=== PATIENT | male | born 1940 | race Caucasian/White ===

== ENCOUNTER 2020-06-20 06:38 | Observation (INO) | payer MEDICARE, SELFPAY ==
--- NOTE | 2020-06-20 06:47 | XR_ITS ---
EXAMINATION: 1. RADIOGRAPHS CHEST 2. RADIOGRAPHS RIGHT KNEE CLINICAL INFORMATION: Syncopal episode with right knee injury COMPARISON: Chest x-ray 11/29/2017 TECHNIQUE: Frontal view of the chest and 2 views of the right knee were obtained. FINDINGS: CHEST: Cardiac silhouette is normal in size. The lungs are well aerated. There is no lobar consolidation. No pleural effusion or pneumothorax. RIGHT KNEE: No fracture or dislocation. No suprapatellar joint effusion. Mildly decreased medial joint space height. Small patellar enthesophytes. Vascular calcifications. XR/XR knee RT 2V IMPRESSION: 1. No acute pulmonary pathology. 2. Mild degenerative changes of the right knee without fracture.
[2020-06-20 06:48] VITALS: BP 143/96; BP 84/62; PULSE 54; PULSE 75; RESP 20; O2SAT 78; BMI 55.0
--- NOTE | 2020-06-20 06:48 | CT_ITS ---
EXAMINATION: NONCONTRAST HEAD CT INDICATION INFORMATION: Syncope COMPARISON: Head CT 11/29/2017 TECHNIQUE: Noncontrast CT of the head was performed from the skull base to the vertex. Soft tissue and bony algorithms were evaluated. Coronal and sagittal images were created at the technologist workstation. This CT examination was performed using dose optimization techniques as appropriate, variously including the following: *Automated exposure control *Adjustment of mA and/or kV according to patient size (this includes techniques or standardized protocols for targeted exams where dose is matched to indication/reason for exam; i.e. extremities or head) *Use of iterative reconstruction technique DLP: 705 mGy-cm FINDINGS: There is no evidence of acute intracranial hemorrhage or territorial infarction. No abnormal mass effect or midline shift is appreciated. Lynch-white differentiation is well preserved. No extra-axial fluid collections. The ventricular system and cortical sulci are prominent, consistent with age-appropriate volume loss. There are areas of low density in the periventricular and subcortical white matter, most consistent with sequelae of microvascular ischemic change. The osseous structures and soft tissues are normal. There are calcifications of the cavernous internal carotid arteries. The visualized paranasal sinuses and mastoid air cells are well aerated. CT/CT head/brain wo con IMPRESSION: Chronic microvascular ischemic changes with no CT evidence of acute intracranial abnormality.
--- NOTE | 2020-06-20 06:48 | XR_ITS ---
EXAMINATION: 1. RADIOGRAPHS CHEST 2. RADIOGRAPHS RIGHT KNEE CLINICAL INFORMATION: Syncopal episode with right knee injury COMPARISON: Chest x-ray 11/29/2017 TECHNIQUE: Frontal view of the chest and 2 views of the right knee were obtained. FINDINGS: CHEST: Cardiac silhouette is normal in size. The lungs are well aerated. There is no lobar consolidation. No pleural effusion or pneumothorax. RIGHT KNEE: No fracture or dislocation. No suprapatellar joint effusion. Mildly decreased medial joint space height. Small patellar enthesophytes. Vascular calcifications. XR/XR chest 1V IMPRESSION: 1. No acute pulmonary pathology. 2. Mild degenerative changes of the right knee without fracture.
--- NOTE | 2020-06-20 06:48 | ECG_ITS ---
Test Reason : FALL Blood Pressure : / mmHG Vent. 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
--- NOTE | 2020-06-20 06:50 | ED_ITS ---
HPI - Syncope General Chief Complaint: General Medical Stated Complaint: SEMI RESPONSIVE Time Seen by Provider: 06/20/20 06:47 Source: patient and EMS Mode of arrival: EMS Limitations: no limitations History of Present Illness HPI narrative: 80-year-old male brought in by ambulance to the emergency department after syncopal episode, patient stated that he tried to get up going to the bathroom felt weak and he put himself down on the floor unsure if he lost consciousness but he remained on the floor and call 911, on arrival of 911 patient was on the floor was hypoxic 77% and fingerstick was 108 patient was given supplemental oxygen via nasal cannula patient mentation improved and start to respond to EMS, patient initially had a low blood pressure which responded well to 300 cc of normal saline given by EMS, patient emergency department is awake and alert and oriented able to regard examiner and answer questions appropriately. Related Data Allergies Allergy/AdvReac Type Severity Reaction Status Date / Time amoxicillin [AMOXICILLIN] Allergy Unknown HIVES Unverified 04/22/20 15:13 Review of Systems Review of Systems: All other systems are reviewed and are negative Constitutional: Reports as per HPI and Reports no additional constitutional complaints Eyes: Reports as per HPI and Reports no additional eye complaints Reports system reviewed and no additional complaints, except as documented Cardiovascular: Reports as per HPI and Reports no additional cardiovascular complaints Respiratory: Reports as per HPI and Reports no additional respiratory complaints Gastrointestinal: Reports as per HPI and Reports no additional gastrointestinal complaints Genitourinary: Reports no additional female genitourinary complaints Musculoskeletal: Reports no additional musculoskeletal complaints Skin/Breast: Reports system reviewed and no additional complaints, except as docu Psychiatric: Reports no additional psychiatric complaints Endocrine: Reports no additional endocrine complaints Hematologic/Lymphatic: Reports no additional hematologic/lymphatic complaints Allergic/Immunologic: Reports no additional allergic/immunologic complaints Reports system reviewed and no additional complaints, except as documented and Reports Abnormal speech present [facility] Social History Social History Smoked in Last 30 Days: No Use of substances other than those prescribed or required for medical reasons: No Advance Directives: No Advance Directives Information Provided: No Physical Exam Vital Signs: Vital Signs: Last Vital Signs Pulse 75 06/20/20 06:48 Resp 20 06/20/20 06:48 BP 143/96 H 06/20/20 06:48 Body Mass Index 55.0 Vital signs have been reviewed as normal and appeared to be correct. Blood pres sure normal. Heart rate normal. Respiration rate normal. Temperature normal. Oxygen saturation normal. Appearance: Alert. Oriented X3. No acute distress. Head: Normal external exam. Normocephalic. Atraumatic. No García signs noted. No raccoon eyes noted Eyes: PERRLA. EOMI. Conjunctiva and sclera normal. Eyelids normal. ENT: EAC normal. TM's Normal. Pharynx normal. Uvula midline. Moist mucous membranes. No trismus noted. No drooling noted. No muffled voice noted. Neck: Normal inspection. Neck supple. FROM. No adenopathy. Thyroid Normal. No meningeal signs. No neck mass noted. CVS: Normal heart rate and rhythm. Heart sound normal. No murmurs noted. Pulses normal throughout. Respiratory: No respiratory distress. Painless inspiration. Breath sounds don l. No wheezes/rales/rhonchi noted. Chest nontender. No accessory muscle usage noted or decreased air movement noted. Abdomen: Soft and nontender. Bowel sounds normal in all 4 quadrants. No distention noted. No organomegaly noted. No visible injury noted. Back: No CVA tenderness. Full range of motion noted. Skin: Skin warm and dry. Normal skin color. Normal skin turgor. No rashes/lesions/lacerations noted. Extremities: No lower extremity edema. Extremities exhibit normal range of motion. Extremities nontender. Superficial abrasion to right knee with full range of motion, no deformity. Neurovascular exam is intact distal to the right knee Neuro: Oriented X 3. No motor deficit. No sensory deficit. Reflexes normal. Course Course Course Narrative: This is an 80 years old male came in by ambulance after was found unresponsive by his , patient initially was hypoxic but responded to EMS supplemental oxygen via nasal cannula, patient also was hypotensive initially responded well to 300 cc given by EMS, initial fingerstick was 108. Patient at this point decline chest pain or difficulty breathing, neuro exam is intact. Check blood workup, chest x-ray, x-ray of her right knee, cardiac monitoring, monitoring blood pressure/O2 sat. MDM - Syncope MDM Narrative Medical decision making narrative: 80 years old male presented after having syncopal episode this morning when he woke up trying to go to the bathroom. 1. Patient has positive orthostatic vital signs in the emergency department, and he also hyponatremic so possibly hyponatremia hypovolemia that is causing jony ent's symptoms. 2. Patient also will be admitted for syncopal cardiac/neurologic workup. 3. Gentle hydration. Number for admit to inpatient. Lab Data Lab results narrative: Hyponatremia Result diagrams: 06/20/20 07:03 06/20/20 07:03 Labs: Lab Results 06/20/20 06/20/20 06/20/20 Range/Units 07:03 07:03 07:03 WBC 7.6 (4.8-10.8) X10*3/uL RBC 4.31 L (4.60-5.80) X10*6/uL Hgb 13.6 L (14.0-18.0) g/dl Hct 39.5 L (42-52) % MCV 91.6 (80-98) fL MCH 31.6 (27.0-33.0) pg MCHC 34.4 (31.0-36.0) g/dl RDW 12.4 (11.0-16.0) % Plt Count 249 (160-400) X10*3/uL MPV 9.3 L (9.4-12.4) fL Immature Gran % (Auto) 0.4 (0.0-0.4) % Neut % (Auto) 66.3 (45-73) % Lymph % (Auto) 14.2 L (20-40) % [place] % (Auto) 10.8 (2-11) % Eos % (Auto) 7.4 H (0-4) % Baso % (Auto) 0.9 (0-2) % Lymph # (Auto) 1.1 L (1.2-4.9) X10*3/uL [place] # (Auto) 0.8 (0.1-1.2) X10*3/uL Eos # (Auto) 0.6 H (0.0-0.4) X10*3/uL Baso # (Auto) 0.1 (0.0-0.2) X10*3/uL Abs Immat Gran (auto) 0.03 (0.00-0.03) X10*3/uL Absolute Neuts (auto) 5.0 (2.0-8.3) X10*3/uL Absolute Nucleated RBC 0.000 (0.0-0.012) X10*3/uL Nucleated RBC % (auto) 0.0 (0.0-0.2) /100WBC Sodium 129 L (135-145) mmol/L Potassium 4.8 (3.3-5.1) mmol/l Chloride 94 L (96-108) mmol/L Carbon Dioxide 28 (22-29) mmol/L Anion Gap 12 (12-20) BUN 10 (9-16) mg/dL Creatinine 1.29 (0.5-1.4) mg/dL Estim Creat Clear Calc 70.8 Estimated GFR 53 Random Glucose 152 H (60-115) mg/dL Calcium 8.8 (8.4-10.2) mg/dL Total Bilirubin 0.7 (0.0-1.0) mg/dL Direct Bilirubin 0.3 (0.0-0.5) mg/dL AST 20 (5-37) U/L ALT 17 (0-40) U/L Alkaline Phosphatase 85 (39-117) U/L Troponin I High Sens 28.6 (<3.5-35.0) ng/L B-Natriuretic Peptide 76 (<100) pg/mL Total Protein 6.9 (6.5-8.0) g/dL Albumin 4.2 (3.5-5.0) g/dL Lipase 260 H (8-78) U/L COVID-19 (HUGO) (Negative) COVID-19 Clin Com 06/20/20 Range/Units 07:34 WBC (4.8-10.8) X10*3/uL RBC (4.60-5.80) X10*6/uL Hgb (14.0-18.0) g/dl Hct (42-52) % MCV (80-98) fL MCH (27.0-33.0) pg MCHC (31.0-36.0) g/dl RDW (11.0-16.0) % Plt Count (160-400) X10*3/uL MPV (9.4-12.4) fL Immature Gran % (Auto) (0.0-0.4) % Neut % (Auto) (45-73) % Lymph % (Auto) (20-40) % [place] % (Auto) (2-11) % Eos % (Auto) (0-4) % Baso % (Auto) (0-2) % Lymph # (Auto) (1.2-4.9) X10*3/uL [place] # (Auto) (0.1-1.2) X10*3/uL Eos # (Auto) (0.0-0.4) X10*3/uL Baso # (Auto) (0.0-0.2) X10*3/uL Abs Immat Gran (auto) (0.00-0.03) X10*3/uL Absolute Neuts (auto) (2.0-8.3) X10*3/uL Absolute Nucleated RBC (0.0-0.012) X10*3/uL Nucleated RBC % (auto) (0.0-0.2) /100WBC Sodium (135-145) mmol/L Potassium (3.3-5.1) mmol/l Chloride (96-108) mmol/L Carbon Dioxide (22-29) mmol/L Anion Gap (12-20) BUN (9-16) mg/dL Creatinine (0.5-1.4) mg/dL Estim Creat Clear Calc Estimated GFR Random Glucose (60-115) mg/dL Calcium (8.4-10.2) mg/dL Total Bilirubin (0.0-1.0) mg/dL Direct Bilirubin (0.0-0.5) mg/dL AST (5-37) U/L ALT (0-40) U/L Alkaline Phosphatase (39-117) U/L Troponin I High Sens (<3.5-35.0) ng/L B-Natriuretic Peptide (<100) pg/mL Total Protein (6.5-8.0) g/dL Albumin (3.5-5.0) g/dL Lipase (8-78) U/L COVID-19 (HUGO) Negative (Negative) COVID-19 Clin Com See Note Imaging Data CT scan - head: Radiologist's impression: Chronic microvascular ischemic changes with no CT evidence of acute intracranial abnormality Chest x-ray: Radiologist's impression: 1. No acute pulmonary pathology. 2. Mild degenerative changes of the right knee without fracture. Right knee x-ray: Radiologist's impression: 1. No acute pulmonary pathology. 2. Mild degenerative changes of the right knee without fracture. ECG Data Interpretation: Normal sinus rhythm at 72 beats per minute with occasional PVCs, normal axis deviation, otherwise unremarkable intervals, no acute ST-T changes. Discharge Plan Discharge Clinical Impression: Syncope, Vaso-vagal reaction, Acute hyponatremia Patient Disposition: Admitted As Inpatient
[2020-06-20 07:10] LABS: MANUAL DIFF FLAG NO
[2020-06-20 07:12] LABS: Basophils Absolute Auto 0.1 X10*3/uL (0.0-0.2); Basophils Percent Auto 0.9 % (0-2); Eosinophils Absolute Auto 0.6 X10*3/uL (0.0-0.4); Eosinophils Percent Auto 7.4 % (0-4); Hematocrit 39.5 % (42-52); Hemoglobin 13.6 g/dl (14.0-18.0); Imm Gran Abs Auto 0.03 X10*3/uL (0.00-0.03); Imm Gran Pct Auto 0.4 % (0.0-0.4); Lymphocytes Absolute Auto 1.1 X10*3/uL (1.2-4.9); Lymphocytes Percent Auto 14.2 % (20-40); Mean Corpuscular HGB Conc 34.4 g/dl (31.0-36.0); Mean Corpuscular Hemoglobin 31.6 pg (27.0-33.0); Mean Corpuscular Volume 91.6 fL (80-98); Mean Platelet Volume 9.3 fL (9.4-12.4); Monocytes Absolute Auto 0.8 X10*3/uL (0.1-1.2); Monocytes Percent Auto 10.8 % (2-11); Neutrophils Percent Auto 66.3 % (45-73); Platelet Count 249 X10*3/uL (160-400); Red Blood Count 4.31 X10*6/uL (4.60-5.80); Red Cell Distribution Width 12.4 % (11.0-16.0); White Blood Count 7.6 X10*3/uL (4.8-10.8)
[2020-06-20 07:39] LABS: B Type Natriuretic Peptide 76 pg/mL (<100); Troponin-I High Sensitivity 28.6 ng/L (<3.5-35.0)
[2020-06-20 07:47] LABS: Alanine Aminotransferase 17 U/L (0-40); Albumin Level 4.2 g/dL (3.5-5.0); Alkaline Phosphatase 85 U/L (39-117); Anion Gap 12 (12-20); Aspartate Amino Transferase 20 U/L (5-37); Bilirubin Direct 0.3 mg/dL (0.0-0.5); Bilirubin Total 0.7 mg/dL (0.0-1.0); Blood Urea Nitrogen 10 mg/dL (9-16); Calcium 8.8 mg/dL (8.4-10.2); Carbon Dioxide 28 mmol/L (22-29); Chloride 94 mmol/L (96-108); Creatinine Clr Calc Pharmacy 70.8; Estimated Glomerular Filt Rate 53; Glucose Random 152 mg/dL (60-115); Potassium 4.8 mmol/l (3.3-5.1); Sodium 129 mmol/L (135-145); Total Protein 6.9 g/dL (6.5-8.0)
[2020-06-20 07:59] LABS: Lipase 260 U/L (8-78)
[2020-06-20 08:06] LABS: COVID-19 Test Negative (Negative); IDNOW Serial# 9DD0AD1C
[2020-06-20] MEDS: 0.9 % Sodium Chloride 500 ML 999 ML IVCONT (08:09)
[2020-06-20 10:02] VITALS: BP 119/54; BP 137/52; BP 139/58; PULSE 71; PULSE 81; PULSE 88
[2020-06-20 10:05] VITALS: BMI 24.5
[2020-06-20 10:26] LABS: Magnesium 1.8 mg/dL (1.6-2.6)
--- NOTE | 2020-06-20 11:02 | PM.IMHP ---
History of Present Illness Date of Service: 06/20/20 Chief Complaint: syncope this is an 80-year-old male who was brought to the emergency department after a possible syncopal episode. He states that he got up early this morning to use the bathroom. Since he broke his hip he does not walk to the bathroom in the middle of the night, he uses the urinal next to the bed. He got up and his heard a thump and found him on the ground and called 911. Reportedly per EMS he was hypoxic and hypotensive when they arrived at his home. He was also somewhat groggy. On arrival in the emergency department his blood pressure was 143/96 and the patient was awake and alert and at his baseline. He denies any specific complaints at this time. Lab work was significant for sodium of 129, troponin of 28.6. Orthostatic blood pressures were checked and were borderline positive. he does not drink water at home and has been trying to lose weight in the decreasing his p.o. intake. He received gentle IV fluid. He was noted to have frequent bigeminy on monitor. Of note patient had a similar episode in 2018. Review of Systems Review of Systems: Yes all other systems are reviewed and are negative Constitutional: Constitutional: Denies chills and Denies fever(s) Cardiovascular: Cardiovascular: Denies chest pain Respiratory: Respiratory: Reports cough Gastrointestinal: Gastrointestinal: Denies abdominal pain [facility] Medical History (Updated 06/20/20 @ 11:51 by SANDY Patterson) BPH (benign prostatic hyperplasia) Hyperlipidemia Hypertension Near syncope Functional capacity: uses cane/walker Family History (Updated 06/20/20 @ 11:51 by SANDY Patterson) Other CAD (coronary artery disease) Surgical History (Updated 06/20/20 @ 11:51 by SANDY Patterson) H/O foot surgery Previous back surgery Status post hip surgery Social History (Updated 06/20/20 @ 11:52 by SANDY Patterson) Household Members: Spouse Alcohol intake: former Smoking Status: Former smoker Tobacco Type: Cigarette Smoked in Last 30 Days: No Use of substances other than those prescribed or required for medical reasons: No Advance Directives: No Advance Directives Information Provided: No Meds Allergies Allergy/AdvReac Type Severity Reaction Status Date / Time amoxicillin [AMOXICILLIN] Allergy Unknown HIVES Unverified 04/22/20 15:13 Home Medications Medication Instructions Recorded Confirmed Type cholecalciferol (vitamin D3) 25 mcg PO DAILY 06/20/20 06/20/20 History [Vitamin D3] hydrochlorothiazide 25 mg PO DAILY 06/20/20 06/20/20 History pravastatin 25 mg PO DAILY 06/20/20 06/20/20 History tamsulosin 0.4 mg PO DAILY 06/20/20 06/20/20 History Physical Exam Vital Signs and Narrative: Vital Signs: Last Vital Signs Pulse 88 06/20/20 10:02 Resp 20 06/20/20 06:48 BP 119/54 L 06/20/20 10:02 Body Mass Index 24.5 Const: Nutritional Appearance: well nourished Orientation/consciousness: patient oriented x3 HENMT: Head: Yes normocephalic and Yes atraumatic Eyes: Sclerae: sclerae normal Chest: Chest palpation & inspection: normal inspection of the chest Resp: Effort & Inspection: normal respiratory effort and no respiratory distress Auscultation: clear to auscultation bilaterally Cardio: Rate: regular rate Rhythm: regular rhythm GI: Palpation (GI): Soft to palpation and nontender Skin: General skin exam: no rashes or lesions noted Neuro: General: patient oriented x3 Cranial nerves: Yes CN's II-XII intact bilaterally and Yes Bilaterally intact EOM present Extrem: General: Yes normal to inspection Results Labs CBC and Chem 7: 06/20/20 07:03 06/20/20 07:03 Labs: Laboratory Results - last 24 hr 06/20/20 06/20/20 06/20/20 07:03 07:03 07:03 MCV 91.6 MCH 31.6 MCHC 34.4 RDW 12.4 Plt Count 249 MPV 9.3 L Immature Gran % (Auto) 0.4 Neut % (Auto) 66.3 Lymph % (Auto) 14.2 L [place] % (Auto) 10.8 Eos % (Auto) 7.4 H Baso % (Auto) 0.9 Lymph # (Auto) 1.1 L [place] # (Auto) 0.8 Eos # (Auto) 0.6 H Baso # (Auto) 0.1 Abs Immat Gran (auto) 0.03 Absolute Neuts (auto) 5.0 Absolute Nucleated RBC 0.000 Nucleated RBC % (auto) 0.0 Anion Gap 12 Estim Creat Clear Calc 70.8 Estimated GFR 53 Random Glucose 152 H Calcium 8.8 Magnesium 1.8 Total Bilirubin 0.7 Direct Bilirubin 0.3 AST 20 ALT 17 Alkaline Phosphatase 85 Troponin I High Sens 28.6 B-Natriuretic Peptide 76 Total Protein 6.9 Albumin 4.2 Lipase 260 H COVID-19 (HUGO) COVID-19 Clin Com 06/20/20 07:34 MCV MCH MCHC RDW Plt Count MPV Immature Gran % (Auto) Neut % (Auto) Lymph % (Auto) [place] % (Auto) Eos % (Auto) Baso % (Auto) Lymph # (Auto) [place] # (Auto) Eos # (Auto) Baso # (Auto) Abs Immat Gran (auto) Absolute Neuts (auto) Absolute Nucleated RBC Nucleated RBC % (auto) Anion Gap Estim Creat Clear Calc Estimated GFR Random Glucose Calcium Magnesium Total Bilirubin Direct Bilirubin AST ALT Alkaline Phosphatase Troponin I High Sens B-Natriuretic Peptide Total Protein Albumin Lipase COVID-19 (HUGO) Negative COVID-19 Clin Com See Note Imaging Radiologist's Impressions: Impressions Knee X-Ray 06/20/20 06:47 IMPRESSION: 1. No acute pulmonary pathology. 2. Mild degenerative changes of the right knee without fracture. Chest X-Ray 06/20/20 06:48 IMPRESSION: 1. No acute pulmonary pathology. 2. Mild degenerative changes of the right knee without fracture. Head CT 06/20/20 06:48 IMPRESSION: Chronic microvascular ischemic changes with no CT evidence of acute intracranial abnormality. Assessment and Plan (1) Syncope: Qualifiers: Encounter type: initial encounter Status: Acute (2) Acute hyponatremia: Status: Acute this is an 80-year-old male with history of hypertension, dyslipidemia, BPH, syncope in 2018 who presents after syncopal episode syncope possibly related to orthostasis. orthostatic blood pressures borderline trops flat. frequent bigeminy on monitor - Gentle IV fluid - telemetry monitoring - cardiology consult mild hyponatremia likely related to volume depletion - gentle IV fluid - repeat BMP in a.m. - hold HCTZ hypertension BP controlled - hold HCT HLD - continue statin BPH - continue Flomax DVT prophylaxis- heparin code status- full code this case was discussed with Dr. Celestin
[2020-06-20 11:37] VITALS: RESP 16
--- NOTE | 2020-06-20 11:37 | PM.EVENT ---
Event Note Date of Service: 06/20/20 Event Note: Patient seen and examined independently and was present during [place] portion of E/M service. Agree with midlevel's history, physical, assessment, and plan. 80M presented with syncope syncope possible micturaiton/cough syncope, concern due to bigemny, monitor on tele, cardio eval
[2020-06-20 11:46] LABS: Troponin-I High Sensitivity 27.7 ng/L (<3.5-35.0)
--- NOTE | 2020-06-20 14:49 | PC.NURSE ---
REPORT GIVEN TO PAIGE SAUL
[2020-06-20 15:18] VITALS: BMI 24.5
[2020-06-20 15:41] VITALS: BP 164/72; PULSE 80; RESP 18; TEMP 36.3; O2SAT 98
[2020-06-20] MEDS: 0.9 % Sodium Chloride Flush 3 ML SYRINGE IVFLUSH (16:27)
[2020-06-20] MEDS: 0.9 % Sodium Chloride 1,000 ML 70 ML IVCONT (16:27)
[2020-06-20 17:38] LABS: Glucose Urine UA NEG (NEG); Leukocyte Esterase Urine NEG (NEG); Nitrite Urine NEG (NEG); PH 6.5 (5.0-8.0); Urine Blood NEG (NEG); Urine Ketones NEG (NEG); Urine Protein NEG (NEG-TRACE)
[2020-06-20 17:41] LABS: Appearance Urine CLEAR; Color Urine STRAW
[2020-06-20] MEDS: Heparin Sodium,Porcine 5,000 UNIT/ML VIAL 5000 UNIT SUBCUT (18:19)
[2020-06-20 19:16] VITALS: BP 154/66; PULSE 84; RESP 18; TEMP 36.3; O2SAT 98
[2020-06-21] VITALS: BP 180/88; PULSE 85; RESP 16; TEMP 36.4; O2SAT 100
[2020-06-21] MEDS: Acetaminophen 325 MG TABLET 650 MG PO (01:34)
[2020-06-21 04:00] VITALS: BP 186/79; PULSE 74; RESP 16; TEMP 36.3; O2SAT 100
[2020-06-21] MEDS: Heparin Sodium,Porcine 5,000 UNIT/ML VIAL 5000 UNIT SUBCUT (05:32)
[2020-06-21 06:53] LABS: Hematocrit 38.4 % (42-52); Hemoglobin 13.5 g/dl (14.0-18.0); Mean Corpuscular HGB Conc 35.2 g/dl (31.0-36.0); Mean Corpuscular Hemoglobin 32.1 pg (27.0-33.0); Mean Corpuscular Volume 91.4 fL (80-98); Platelet Count 254 X10*3/uL (160-400); Red Cell Distribution Width 12.6 % (11.0-16.0); White Blood Count 8.5 X10*3/uL (4.8-10.8)
[2020-06-21 07:36] LABS: Anion Gap 12 (12-20); Blood Urea Nitrogen 11 mg/dL (9-16); Calcium 8.5 mg/dL (8.4-10.2); Carbon Dioxide 26 mmol/L (22-29); Chloride 98 mmol/L (96-108); Estimated Glomerular Filt Rate > 60; Glucose Random 83 mg/dL (60-115); Potassium 3.8 mmol/l (3.3-5.1); Sodium 132 mmol/L (135-145)
[2020-06-21 08:00] VITALS: BP 154/73; PULSE 83; RESP 16; TEMP 36.3; O2SAT 98
[2020-06-21] MEDS: Cholecalciferol (Vitamin D3) 25 MCG TABLET PO (08:23)
[2020-06-21] MEDS: 0.9 % Sodium Chloride Flush 3 ML SYRINGE IVFLUSH (08:23)
--- NOTE | 2020-06-21 09:47 | MHC.CM.PN ---
met with pt who lives with his pt reports managing well without servceis dc plan home no servceis his will provide transportaion home
--- NOTE | 2020-06-21 10:24 | PM.DS ---
DS: Providers Provider Date of admission: 06/20/20 10:49 Primary care physician: Ronny Rashid MD Consults: 06/20/20 14:15 Consult to Cardiology Routine Consulting Provider: Lorenzo Lancaster Reason for consultation: syncope, john Has provider been notified: No DS: Diagnosis Discharge Diagnosis (1) Syncope: Status: Acute (2) Acute hyponatremia: Status: Acute DS: Medications Discharge Medications Home Medications: Home Medications Medication Instructions Recorded Confirmed cholecalciferol (vitamin D3) 25 mcg PO DAILY 06/20/20 06/20/20 [Vitamin D3] pravastatin 25 mg PO DAILY 06/20/20 06/20/20 tamsulosin 0.4 mg PO DAILY 06/20/20 06/20/20 Previous Rx's Medication Instructions Recorded amlodipine 5 mg PO DAILY #30 tab 06/21/20 DS: Summary Hospital Course Hospital Course: Patient was observed for syncope. He was seen by Cardiology felt that this was unlikely to be cardiac arrhythmia. This was possibly vasovagal versus orthostatic. Patient was noted to be hyponatremic. He received some IV fluids and sodium resolved. His hydrochlorothiazide has been exchange with amlodipine to avoid further hyponatremia. Time Spent with Patient Time attestation: Total time spent providing and/or coordinating discharge services: Physical Exam Vital Signs: Vital Signs: Last Vital Signs Temp 97.3 F 06/21/20 08:00 Pulse 83 06/21/20 08:00 Resp 16 06/21/20 08:00 BP 154/73 H 06/21/20 08:00 Pulse Ox 98 06/21/20 08:00 Body Mass Index 24.5 General: AO X 3, no acute distress Resp: CTA bilateral CVS: S1,S2,RRR GI: soft, non tender, non distended Neuro: motor grossly intact Psych: appropriate affect DS: Data Data Completed and Pending Labs on day of discharge: 06/20/20 06:47 XR knee RT 2V Stat 06/20/20 06:48 ECG 12 lead EKG Stat EKG Documentation DIRECTED CT head/brain wo con Stat XR chest 1V Stat 06/20/20 07:00 0.9 % Sodium Chloride [Ns] 500 ml IVCONT 999 mls/hr 06/20/20 07:03 B Type Natriuretic Peptide Stat Basic Metabolic Panel Stat Complete Blood Count Auto Diff Stat Lipase Stat Liver Panel Stat Magnesium Stat Troponin-I High Sensitivity Stat 06/20/20 07:34 COVID-19 ID NOW (Lopez) Stat 06/20/20 10:02 Add Laboratory Test Stat 06/20/20 10:37 Transfer Order Routine 06/20/20 11:17 Troponin-I High Sensitivity Stat 06/20/20 14:15 0.9 % Sodium Chloride [Ns] 1,000 ml IVCONT 70 mls/hr 06/20/20 17:15 UA CC w/rflx Micro + Cult Stat 06/21/20 05:33 Basic Metabolic Panel DAILY@0600 Complete Blood Count no Diff DAILY@0600 Laboratory Last Values WBC 8.5 X10*3/uL (4.8-10.8) 06/21/20 05:33 RBC 4.20 X10*6/uL (4.60-5.80) L 06/21/20 05:33 Hgb 13.5 g/dl (14.0-18.0) L 06/21/20 05:33 Hct 38.4 % (42-52) L 06/21/20 05:33 MCV 91.4 fL (80-98) 06/21/20 05:33 MCH 32.1 pg (27.0-33.0) 06/21/20 05:33 MCHC 35.2 g/dl (31.0-36.0) 06/21/20 05:33 RDW 12.6 % (11.0-16.0) 06/21/20 05:33 Plt Count 254 X10*3/uL (160-400) 06/21/20 05:33 MPV 10.0 fL (9.4-12.4) 06/21/20 05:33 Immature Gran % (Auto) 0.4 % (0.0-0.4) 06/20/20 07:03 Neut % (Auto) 66.3 % (45-73) 06/20/20 07:03 Lymph % (Auto) 14.2 % (20-40) L 06/20/20 07:03 [place] % (Auto) 10.8 % (2-11) 06/20/20 07:03 Eos % (Auto) 7.4 % (0-4) H 06/20/20 07:03 Baso % (Auto) 0.9 % (0-2) 06/20/20 07:03 Lymph # (Auto) 1.1 X10*3/uL (1.2-4.9) L 06/20/20 07:03 [place] # (Auto) 0.8 X10*3/uL (0.1-1.2) 06/20/20 07:03 Eos # (Auto) 0.6 X10*3/uL (0.0-0.4) H 06/20/20 07:03 Baso # (Auto) 0.1 X10*3/uL (0.0-0.2) 06/20/20 07:03 Abs Immat Gran (auto) 0.03 X10*3/uL (0.00-0.03) 06/20/20 07:03 Absolute Neuts (auto) 5.0 X10*3/uL (2.0-8.3) 06/20/20 07:03 Absolute Nucleated RBC 0.000 X10*3/uL (0.0-0.012) 06/21/20 05:33 Nucleated RBC % (auto) 0.0 /100WBC (0.0-0.2) 06/21/20 05:33 Sodium 132 mmol/L (135-145) L 06/21/20 05:33 Potassium 3.8 mmol/l (3.3-5.1) D 06/21/20 05:33 Chloride 98 mmol/L (96-108) 06/21/20 05:33 Carbon Dioxide 26 mmol/L (22-29) 06/21/20 05:33 Anion Gap 12 (12-20) 06/21/20 05:33 BUN 11 mg/dL (9-16) 06/21/20 05:33 Creatinine 1.05 mg/dL (0.5-1.4) 06/21/20 05:33 Estim Creat Clear Calc 56.0 06/21/20 05:33 Estimated GFR > 60 06/21/20 05:33 Random Glucose 83 mg/dL (60-115) D 06/21/20 05:33 Calcium 8.5 mg/dL (8.4-10.2) 06/21/20 05:33 Magnesium 1.8 mg/dL (1.6-2.6) 06/20/20 07:03 Total Bilirubin 0.7 mg/dL (0.0-1.0) 06/20/20 07:03 Direct Bilirubin 0.3 mg/dL (0.0-0.5) 06/20/20 07:03 AST 20 U/L (5-37) 06/20/20 07:03 ALT 17 U/L (0-40) 06/20/20 07:03 Alkaline Phosphatase 85 U/L (39-117) 06/20/20 07:03 Troponin I High Sens 27.7 ng/L (<3.5-35.0) 06/20/20 11:17 B-Natriuretic Peptide 76 pg/mL (<100) 06/20/20 07:03 Total Protein 6.9 g/dL (6.5-8.0) 06/20/20 07:03 Albumin 4.2 g/dL (3.5-5.0) 06/20/20 07:03 Lipase 260 U/L (8-78) H 06/20/20 07:03 Urine Color STRAW 06/20/20 16:20 Urine Appearance CLEAR 06/20/20 16:20 Urine pH 6.5 (5.0-8.0) 06/20/20 16:20 Ur Specific [place] 1.010 (1.005-1.025) 06/20/20 16:20 Urine Protein NEG MG/DL (NEG-TRACE) 06/20/20 16:20 Urine Glucose (UA) NEG MG/DL (NEG) 06/20/20 16:20 Urine Ketones NEG MG/DL (NEG) 06/20/20 16:20 Urine Blood NEG (NEG) 06/20/20 16:20 Urine Nitrite NEG (NEG) 06/20/20 16:20 Ur Leukocyte Esterase NEG (NEG) 06/20/20 16:20 COVID-19 (HUGO) Negative (Negative) 06/20/20 07:34 COVID-19 Clin Com See Note 06/20/20 07:34 Discharge Plan Discharge Patient Disposition: Home, Self-Care Referrals: Ronny Rashid MD [Primary Care Provider] - Discharge Medications: New amlodipine 5 mg tablet 5 mg PO DAILY Qty: 30 RF: 0 Continued tamsulosin 0.4 mg Capsule 0.4 mg PO DAILY RF: 0 pravastatin 20 mg Tablet 25 mg PO DAILY RF: 0 cholecalciferol (vitamin D3) [Vitamin D3] 25 mcg (1,000 unit) Capsule 25 mcg PO DAILY RF: 0 Discontinued hydrochlorothiazide 25 mg Tablet 25 mg PO DAILY RF: 0 Discharge Orders: Discharge Order (Routine); Ordered 06/21/20 Ordered By: Steve Celestin Activity on Discharge: As tolerated Visit Report Forms: Patient Portal Discharge page Care Plan Goals: recovery Health Concerns: syncope Plan of Treatment: change hctz for amlodiipne because of low sodium
--- NOTE | 2020-06-21 10:24 | MHC.CM.PN ---
pt dcd home today with no services pts family to transport him home
--- NOTE | 2020-06-21 10:30 | P.CONCA_ITS ---
History of Present Illness History of Present Illness Date of Consult: June 21, 2020 Chief complaint: syncope Narrative: This is a cardiology consultation regarding suspected syncopal episode. Patient himself does not have any specific cardiac history at all. He denies any coronary disease or myocardial infarction or cardiomyopathy or in fact any other cardiac concerns in the past. There is no prior history of any orthostatic hypotension or recurrent syncopal episodes. He apparently has a torn pectoral muscle on the left side from many years ago and that sometimes lead to nonexertional pains but otherwise no anginal-type symptoms at any point. He got up in the morning to use the bathroom and he tries to use a urinal next to the bed. His apparently heard a thump and found him on the ground and called 911. suspected to have hypoxia / hypotension when EMS arrived and some grogginess. In the ER however, blood pressure was 143/96 mm Hg and the patient is awake and alert and back to his baseline. He has no cardiac symptoms at this time including angina, shortness of breath, feeling dizzy or in fact anything else at all. Overall, he states that he feels okay. Review of Systems Review of Systems: Cardiac negative for angina, shortness of breath, palpitations, dizzy spells or syncopal episodes. Remainder of the 10 system review negative. [facility] Past Medical History Medical History BPH (benign prostatic hyperplasia) Hyperlipidemia Hypertension Near syncope Functional capacity: uses cane/walker Family History Family History Other CAD (coronary artery disease) Surgical History Surgical History H/O foot surgery Previous back surgery Status post hip surgery Social History Social History Household Members: Spouse Housing: House Do you presently have visiting nurse or other home services: No Alcohol intake: former Smoking Status: Former smoker Tobacco Type: Cigarette Packs Per Day: 1.5 Cigarettes Per Day: 30.0 Years Smoked: 60 Smoked in Last 30 Days: No Smoking Quit Date: 10 YEARS AGO Use of substances other than those prescribed or required for medical reasons: No Have you been hit, kicked, punched, or otherwise hurt by someone within the past year? If so, by whom?: No Do you feel safe in your current relationship?: No Is there a partner from a previous relationship who is making you feel unsafe now?: No Are you made to feel afraid or neglected: No Advance Directives: No Advance Directives Information Provided: No Do you have thoughts of harming others: None Do you have a plan to hurt others: No Plan Recently lost weight without trying: No service: No Meds Allergies Allergy/AdvReac Type Severity Reaction Status Date / Time amoxicillin [AMOXICILLIN] Allergy Unknown HIVES Verified 06/20/20 16:22 bee pollen [bee stings] Allergy Anaphylaxis Verified 06/20/20 15:38 Home Medications Medication Instructions Recorded Confirmed Type cholecalciferol (vitamin D3) 25 mcg PO DAILY 06/20/20 06/20/20 History [Vitamin D3] pravastatin 25 mg PO DAILY 06/20/20 06/20/20 History tamsulosin 0.4 mg PO DAILY 06/20/20 06/20/20 History Physical Exam Vital Signs: Vital Signs: Last Vital Signs Temp 97.3 F 06/21/20 08:00 Pulse 83 06/21/20 08:00 Resp 16 06/21/20 08:00 BP 154/73 H 06/21/20 08:00 Pulse Ox 98 06/21/20 08:00 Body Mass Index 24.5 Comfortable, no distress No pallor, icterus or cyanosis HEENT -unremarkable JVD- normal Cardiac- normal heart sounds, no murmurs, gallops or rubs, normal PMI Respiratory-normal breath sounds bilaterally, no crackles, no wheeze Abdomen- soft, nontender Neuro- alert and oriented Lower extremities- no significant edema, warm well perfused Results Labs and Meds Result diagrams: 06/21/20 05:33 06/21/20 05:33 Lab results: Laboratory Results - last 24 hr 06/20/20 06/20/20 06/21/20 11:17 16:20 05:33 WBC 8.5 RBC 4.20 L Hgb 13.5 L Hct 38.4 L MCV 91.4 MCH 32.1 MCHC 35.2 RDW 12.6 Plt Count 254 MPV 10.0 Absolute Nucleated RBC 0.000 Nucleated RBC % (auto) 0.0 Sodium Potassium Chloride Carbon Dioxide Anion Gap BUN Creatinine Estim Creat Clear Calc Estimated GFR Random Glucose Calcium Troponin I High Sens 27.7 Urine Color STRAW Urine Appearance CLEAR Urine pH 6.5 Ur Specific [place] 1.010 Urine Protein NEG Urine Glucose (UA) NEG Urine Ketones NEG Urine Blood NEG Urine Nitrite NEG Ur Leukocyte Esterase NEG 06/21/20 05:33 WBC RBC Hgb Hct MCV MCH MCHC RDW Plt Count MPV Absolute Nucleated RBC Nucleated RBC % (auto) Sodium 132 L Potassium 3.8 D Chloride 98 Carbon Dioxide 26 Anion Gap 12 BUN 11 Creatinine 1.05 Estim Creat Clear Calc 56.0 Estimated GFR > 60 Random Glucose 83 D Calcium 8.5 Troponin I High Sens Urine Color Urine Appearance Urine pH Ur Specific [place] Urine Protein Urine Glucose (UA) Urine Ketones Urine Blood Urine Nitrite Ur Leukocyte Esterase EKG Interpretation EKG Comments: EKG today shows sinus rhythm at 72/Min with nonspecific interventricular conduction delay; cannot exclude old inferior infarct; PVC; nonspecific ST-T changes. Assessment and Plan (1) Syncope: Qualifiers: Encounter type: initial encounter Status: Acute (2) PVC (premature ventricular contraction): Status: Acute His telemetry shows premature ventricular contractions but underlying sinus rhythm. Based on clinical evaluation, no clear cardiac etiology to explain his fall /syncope. We can arrange outpatient follow-up if he is able to come and do the needful. Procedures Abscess I/D Date of Service: 06/21/20
== END 2020-06-21 11:56 | disposition home or self-care (01) ==
LOC: HO.ED 09:42 → HO.IMC 13:57
PROVIDERS: Physician Assistant Medical; Admitting Provider Internal Medicine; Emergency Provider Emergency Medicine; PCP Internal Medicine; Visit Provider Internal Medicine
DX: R55 Syncope and collapse (principal); I49.3 Ventricular premature depolarization; E87.1 Hypo-osmolality and hyponatremia; N40.0 Benign prostatic hyperplasia without lower urinary tract symptoms; E78.5 Hyperlipidemia, unspecified; I10 Essential (primary) hypertension; Z87.891 Personal history of nicotine dependence; Z91.81 History of falling; Z20.828 Contact with and (suspected) exposure to other viral communicable diseases; Z88.0 Allergy status to penicillin; Z91.030 Bee allergy status; Z79.899 Other long term (current) drug therapy
CPT/HCPCS: 36415; 70450; 71045; 73560; 80048; 80076; 81003; 83690; 83735; 83880; 84484; 85025; 85027; 87635; 93005; 96361; 96372; 96374; 96375; 99219; 99285

== ENCOUNTER → 2020-07-20 12:49 | Outpatient (BNVA) | payer MEDICARE, SELFPAY | PROVIDERS: PCP Internal Medicine; Visit Provider Internal Medicine | DX: R55 Syncope and collapse (principal); I49.3 Ventricular premature depolarization; I10 Essential (primary) hypertension | CPT/HCPCS: 99212 ==

== ENCOUNTER → 2020-08-10 08:57 | Outpatient (REF) | payer MEDICARE, SELFPAY ==
--- NOTE | 2020-08-10 09:03 | CA_ITS ---
Transthoracic Echocardiogram Patient (Last, First, Middle): Mikie Paul L Gender: Male Date of : 1940 Age: 80 Procedure Date: 08/10/2020 Procedure Type: Transthoracic Echocardiogram Location: OP Height: 177.8 cm Weight: 77.11 kg BSA: 1.95 m2 Heart Rate: bpm BP: 140 / 68 mmHg Animal Cop: DSG Referring MD: Christopher Carmona MD Symptoms: R55 - Syncope and collapse Study Quality: Fair ECG Rhythm: Sinus Conclusions: - The calculated ejection fraction is 40% by biplane method. - There is evidence of regional wall motion abnormalities. - There is mild calcification of the aortic valve. - There is mild mitral annular calcification. Findings Left Ventricle Normal left ventricular cavity size. The left ventricular systolic function is mild to moderately decreased. The calculated ejection fraction is 40% by biplane method. There is evidence of regional wall motion abnormalities. E/E prime ratio is >15, consistent with elevated filling pressures. Evidence suggests grade I (mild) diastolic dysfunction. Estimated LVEF about 40%. Wall Motion Rest Echo Findings The inferoseptal wall is hypokinetic. The inferolateral wall, the basal inferior, and mid inferior segments are akinetic. Right Ventricle Normal right ventricular cavity size and systolic function. Atria The left atrium is normal in size. The right atrium is normal in size. Aortic Valve There is a normal trileaflet aortic valve. There is mild calcification of the aortic valve. There is no aortic valve stenosis. There is no aortic valve regurgitation. Mitral Valve There is mild mitral annular calcification. There is trace mitral valve regurgitation. There is no mitral valve stenosis. Pulmonic Valve The pulmonic valve was not well visualized. Tricuspid Valve Normal tricuspid valve structure. There is trace tricuspid valve regurgitation. The pulmonary artery systolic pressure is normal. Great Vessels The aortic annulus, sinuses of valsalva, and asc aorta are normal in size. Venous The inferior vena cava is normal in size and collapses greater than 50% with inspiration. Pericardium/Pleural There is no evidence of pericardial effusion. Prior Study Comparison Changes noted compared to prior study dated: 11/30/2017. LVEF is lower. Wall motion abnormalities not previously reported, but that was also a limited study. Measurements 2D Linear Measurements IVSd: 1.02 0.6-0.9/0.6-1.0 cm LVIDd: 5.67 3.9-5.3/4.2-5.9 cm LVIDd Index: 2.91 2.4-3.2/2.2-3.1 cm/m2 LVIDs: 4.74 2.0-3.6 cm LVPWd: 0.92 0.7-1.1 cm Ao Root: 3.20 2.1-3.5 cm LA Diam: 3.20 2.7-3.8/3.0-4.0 cm LAIDs Index: 1.64 1.5-2.3 cm/m2 LV Mass: 268.58 67-162/88-224 g LV Mass Index: 137.73 43-95/49-115 g/m2 LVOT Diam: 2.00 3.0+(-)1.3 cm 2D Systolic Function EF 4C: 48.80 >55% EF 2C: 28.90 >55% EF BiP: 39.70 >55% Mitral Valve MV Pk E: 0.94 MV PK A: 1.31 MV Decel Time: 132.00 E/A: 0.70 E'Lateral: 5.80 E'Medial: 4.84 E/E' Med: 19.40 E/E' Lat: 16.20 PHT: 39.00 MVA PHT: 5.64 Decel Sebastian: 7.13 Aortic Valve AoV Pk Esau: 1.51 AoV Pk Grad: 9.00 LVOT LVOT Pk Esau: 1.09 LVOT Mn Esau: 0.71 LVOT VTI: 0.24 LVOT Pk Grad: 5.00 LVOT Mn Grad: 2.00 LVOT Diam: 2.00 LVOT Area: 3.14 Diastolic Function MV Pk E: 0.94 MV Pk A: 1.31 E/A: 0.70 E'Medial: 4.84 E/E' Med: 19.40 E' Laterial: 5.80 E/E' Lat: 16.20 Tricuspid Valve RA Press: 3.00 Great Vessels Aorta Ao Root-2D: 3.20 2.0-3.7 cm Ao Asc: 3.70 2.1-3.4 cm Updated in Other Vendor System with Status of Final Christopher Carmona MD electronically signed on 08/10/2020 2:34:39 PM with status of Final
== END ==
LOC: HO.CARD 08:57
PROVIDERS: Visit Provider Internal Medicine
DX: I49.3 Ventricular premature depolarization (principal); R55 Syncope and collapse
CPT/HCPCS: 93306

== ENCOUNTER 2020-10-10 05:14 | Inpatient (IN) | payer MEDICARE, SELFPAY ==
[2020-10-10] VITALS (26 sets, daily range): BP systolic 109–182; BP diastolic 52–111; PULSE 62–93; RESP 13–21; TEMP 36.4–36.9; O2SAT 94–100; BMI 25.7; BMI 25.0
--- NOTE | ~2020-10-10 | MR_ITS ---
EXAMINATION: MR BRAIN WITHOUT CONTRAST CLINICAL INFORMATION: Status post stroke. COMPARISON: Head CTA 10/10/2020. TECHNIQUE: Multiplanar, multisequence imaging of the brain was performed without intravenous contrast. FINDINGS: There is a small to subacute lacunar infarct within the left posterior basal ganglia seen on series 5 image 19/30. No large territory infarction is seen. Moderate foci of T2 hyperintensity within the cerebral white matter and central calvin are compatible with chronic microangiopathy. Chronic lacunar infarcts are seen within the right more than left basal ganglia and left thalamus. The ventricles are normal in size allowing for mild brain parenchymal volume loss. No hydrocephalus is seen. There is no mass or extra-axial fluid collection. The major arterial flow voids appear preserved at the skull base. Small amount of fluid is present in the right maxillary sinus. MR/MR head/brain wo con IMPRESSION: Small focus of acute to subacute lacunar infarction in the left posterior basal ganglia seen on series 5 image 19/30. No large infarct, hemorrhage, or mass. Background changes of moderate chronic microangiopathy and chronic lacunar infarcts.
--- NOTE | ~2020-10-10 | CT_ITS ---
EXAMINATION: CTA NECK WITH CONTRAST (STROKE) CTA BRAIN WITH CONTRAST (STROKE) CLINICAL INFORMATION: Right-sided weakness COMPARISON: Noncontrast head CT most recently from the same day TECHNIQUE: Initial noncontrast head CT was performed. Test bolus sequences followed by intravenous administration 100 mL of Ultravist-370. Helical imaging was performed in the axial plane from the thoracic inlet to the skull vertex. Delayed postcontrast imaging of the head was also performed. The data was processed at the isotope technologist's workstation for generation of MIP sequences. Angled MIPs and volume rendered reformatted images were also generated at an offline 3D workstation. Stenoses are assessed in accordance with NASCET criteria unless otherwise indicated. DLP: 1736 mGy-cm This CT examination was performed using dose optimization techniques as appropriate, variously including the following: *Automated exposure control *Adjustment of mA and/or kV according to patient size (this includes techniques or standardized protocols for targeted exams where dose is matched to indication/reason for exam; i.e. extremities or head) *Use of iterative reconstruction technique FINDINGS: Neck CTA: Atherosclerotic calcification noted in the visualized thoracic aorta. There is a classic 3 vessel branching pattern of the aortic arch. Moderate stenosis suspected at the origin of the left subclavian artery. There is severe stenosis at the origin of the right internal carotid artery with atherosclerotic plaque and calcification; degree of narrowing appears greater than 70%. There is scattered calcification along the remainder of the cervical right internal carotid artery resulting in mild narrowing. There is atherosclerotic calcification of the origin of the left internal carotid artery with approximately 50% luminal narrowing. Remainder of the cervical left internal carotid artery is widely patent. The cervical right vertebral artery is patent. The left vertebral artery is not opacified at its origin or proximal cervical segment. Faint opacification is seen in the left vertebral artery starting at the level of C4, suspected to be due to collateral flow. Brain CTA: There are scattered calcifications of the intracranial portions of the bilateral internal carotid arteries. The anterior cerebral arteries are opacified bilaterally. The bilateral middle cerebral arteries are opacified, and the MCA complexes appear symmetric. The right vertebral artery is dominant, and opacification of the left vertebral artery is suspected to be due to collateral flow as described above. The basilar and superior cerebellar arteries are patent. There is subtle narrowing of the proximal right posterior cerebral artery. Bilateral posterior cerebral arteries otherwise appear unremarkable. CT Head: No intracranial mass, hemorrhage, extra-axial collection, or midline shift. The freeman-white matter differentiation is preserved. There is moderate periventricular white matter hypoattenuation consistent with chronic small vessel ischemic disease. Volume loss is noted. No pathologic intra-axial enhancement or regional oligemia. No hydrocephalus. The mastoid air cells and paranasal sinuses remain well aerated. CT Neck: Small right thyroid lobe nodule noted. There is disc space narrowing of the mid to lower cervical spine with associated endplates. Multilevel facet arthropathy is present. Upper Chest: There is emphysema at the lung apices. Partially visualized pneumatocele in the left upper lobe. There is a medial right upper lobe nodule measuring 10 mm containing a central focus of calcification and suggestion of surrounding fat attenuation; this is suggestive of a hamartoma. Coronary artery calcifications are present. CT/CT angio head neck stroke IMPRESSION: 1. Severe stenosis at the origin of the right internal carotid artery, with greater than 70% luminal narrowing. 2. Approximately 50% narrowing at the origin of the left internal carotid artery. 3. Nonopacification of the left vertebral artery beginning at its origin and extending to the level of C4; opacification above this level is suspected to be due to collateral flow. 4. No large vessel occlusion or significant stenosis in the intracranial circulation. This critical result was discussed with Dr. Annika Resendez on 10/10/2020 5:36 AM, and it was ascertained that the content and urgency of the report was understood at the time of direct communication.
--- NOTE | ~2020-10-10 | CT_ITS ---
EXAMINATION: CT HEAD WITHOUT CONTRAST (STROKE PROTOCOL) CLINICAL INFORMATION: Stroke protocol. Right-sided weakness COMPARISON: 06/20/2020 TECHNIQUE: Contiguous axial imaging was performed from the skull base to vertex without intravenous administration of contrast. This CT examination was performed using dose optimization techniques as appropriate, variously including the following: *Automated exposure control *Adjustment of mA and/or kV according to patient size (this includes techniques or standardized protocols for targeted exams where dose is matched to indication/reason for exam; i.e. extremities or head) *Use of iterative reconstruction technique DLP: 749 mGy-cm FINDINGS: There is no intracranial hemorrhage, hematoma, or extra-axial fluid collection. The ventricles are normal in size. There is no hydrocephalus, edema, or mass effect. The freeman-white matter differentiation appears symmetric. Redemonstrated focus of hypoattenuation adjacent to the frontal horn of the right lateral ventricle, suggestive of chronic infarct. No appreciable acute territorial infarct. There is moderate periventricular white matter hypoattenuation consistent with chronic small vessel ischemic disease. Mild volume loss is noted. The calvarium appears intact. There is no pneumocephalus or orbital emphysema. The visualized sinuses and middle ears and mastoid air cells show no significant mucosal thickening. There are no air-fluid levels. CT/CT head for stroke IMPRESSION: No acute intracranial pathology identified. Given the underlying chronic small vessel ischemic disease, MRI would be more sensitive for detecting acute infarct. This critical result was discussed with Dr. Annika Resendez on 10/10/2020 5:36 AM, and it was ascertained that the content and urgency of the report was understood at the time of direct communication.
--- NOTE | ~2020-10-10 | XR_ITS ---
EXAMINATION: XR CHEST CLINICAL INFORMATION: Stroke symptoms COMPARISON: 06/20/2020 TECHNIQUE: Frontal view of the chest was obtained. FINDINGS: Lung volumes are symmetric. No focal consolidation is seen. No evidence of pneumothorax, pleural effusion, or pulmonary edema. The cardiomediastinal contour is unremarkable. No acute osseous findings are seen. XR/XR chest 1V IMPRESSION: No acute cardiopulmonary findings.
--- NOTE | 2020-10-10 05:17 | ECG_ITS ---
Test Reason : WEAKNESS Blood Pressure : / mmHG Vent. 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
--- NOTE | 2020-10-10 05:21 | ED.NEUROSD ---
HPI - Neuro Symptoms/Deficit General Chief Complaint: Stroke Stated Complaint: stroke Time Seen by Provider: 10/10/20 05:17 Source: patient and EMS Mode of arrival: EMS Limitations: no limitations History of Present Illness HPI Narrative: 80 yo male with HTN, hyponatremia, being worked up for syncope was up and moving around then noted he felt off, he then noted his R side of his body went weak and he had R arm and leg weakness, EMS noted same exam with R sided deficitis, but en route to the hospital regained most of R sided strength back other than some RLE weakness Onset (ago): minute(s) (45) Timing confirmed by: other (self and spouse) Location: right arm and right leg History of same: No Severity: moderate Quality: weak Relieving factors: time Exacerbating factors: none Context: sudden onset On Anticoagulants: No Associated symptoms: denies other symptoms Treatments Prior to Arrival: other medication ( gave tylenol) Related Data Home Medications Medication Instructions Recorded Confirmed cholecalciferol (vitamin D3) 25 mcg PO DAILY 06/20/20 10/10/20 [Vitamin D3] tamsulosin 0.4 mg PO DAILY 06/20/20 10/10/20 aspirin 325 mg tablet,delayed 325 mg PO DAILY PRN 07/20/20 10/10/20 release pravastatin 20 mg tablet 20 mg PO DAILY tab 07/20/20 10/10/20 Previous Rx's Medication Instructions Recorded amlodipine 5 mg tablet 5 mg PO DAILY #90 tab 07/20/20 Allergies Allergy/AdvReac Type Severity Reaction Status Date / Time amoxicillin [AMOXICILLIN] Allergy Unknown HIVES Verified 07/20/20 12:54 bee pollen [bee stings] Allergy Anaphylaxis Verified 07/20/20 12:54 Review of Systems Review of Systems: Constitutional : No Weight loss, No Fever, No Chills, No Fatigue, No Malaise ENT/Mouth : No sore throat, No Rhinorrhea Eyes: No Eye Pain, No Swelling, No Redness Cardiovascular : No Chest Pain, No SOB, No Dyspnea on Exertion, No Orthopnea, No Edema, No Palpitations Respiratory : No Cough, No Sputum, No Wheezing Gastrointestinal : No Nausea, No Vomiting, No Diarrhea, No Constipation, No abdominal Pain, No Hematochezia, No Melena Genitourinary : No Dysuria, No Urinary Frequency, No Hematuria, Musculoskeletal : No joint pain, No Myalgias, No Joint Swelling Skin : No Skin Lesions, No rash Neuro : pos Weakness, No Numbness, No Dizziness, No Headache Psych : No Anxiety/Panic, No Depression Heme/Lymph: No Bruising, No Bleeding,No Lymphadenopathy Endocrine : No Polyuria, No Polydipsia All other systems reviewed and are negative [facility] Past Medical History Attestation statement: The following information was validated with the patient. Medical History BPH (benign prostatic hyperplasia) Essential hypertension Hyperlipidemia Near syncope Surgical History H/O foot surgery Previous back surgery Status post hip surgery Family History Family History Other CAD (coronary artery disease) Social History Social History Household Members: Spouse Housing: House Alcohol intake: never Smoking Status: Former smoker Tobacco Type: Cigarette Packs Per Day: 1.5 Cigarettes Per Day: 30.0 Years Smoked: 60 Smoked in Last 30 Days: No Use of substances other than those prescribed or required for medical reasons: No Advance Directives: No Advance Directives Information Provided: No service: No Physical Exam Vital Signs: Vital Signs: Last Vital Signs Temp 97.6 F 10/10/20 06:18 Pulse 75 10/10/20 06:43 Resp 14 10/10/20 06:43 BP 134/65 10/10/20 06:43 Pulse Ox 98 10/10/20 06:43 Body Mass Index 25.7 Appearance: Alert. Oriented X3. No acute distress. Eyes: Pupils equal, round and reactive to light. ENT: Pharynx normal. Neck: Normal inspection. Neck supple. CVS: Normal heart rate and rhythm. Pulses normal. Respiratory: No respiratory distress. Breath sounds normal. Abdomen: Soft and nontender. Skin: Skin warm and dry. Normal skin color. Normal skin turgor. Extremities: No lower extremity edema. No calf ttp Neuro: Oriented X 3. mild 4/5 RLE weakness has gait abnormality with weakness as well. No sensory deficit. Course Course Course Narrative: 535AM - call from Radiology no ICH on noncontrast head CT - chronic changes no acute hemorrhage CTA - patent narrow carotids/L vertebral, patent otherwise throughout no clot call to Neurology 545am - RUE weakness resolved, RLE mild weakness still persists 4/[address] Ibanez given tPa given symptoms he has persistent RLE weakness discussed with patient no blood thinners, no trauma, no GIB symptoms no history of bleeding wants to proceed wtih tPa Dr. Case aware - will admit MDM - Neuro Symptoms/Deficit MDM Narrative Medical decision making narrative: 80 yo male with abrupt onset R sided weakness, RLE remains weak - stroke protocol initiated - possible tPA pending review with Neurology Lab Data Result diagrams: 10/10/20 05:51 10/10/20 05:51 Labs: Lab Results 10/10/20 10/10/20 10/10/20 Range/Units 05:22 05:51 05:51 WBC 6.8 (4.8-10.8) X10*3/uL RBC 4.01 L (4.60-5.80) X10*6/uL Hgb 12.6 L (14.0-18.0) g/dl Hct 38.0 L (42-52) % MCV 94.8 (80-98) fL MCH 31.4 (27.0-33.0) pg MCHC 33.2 (31.0-36.0) g/dl RDW 12.7 (11.0-16.0) % Plt Count 272 (160-400) X10*3/uL MPV 9.1 L (9.4-12.4) fL Immature Gran % (Auto) 0.3 (0.0-0.4) % Neut % (Auto) 58.7 (45-73) % Lymph % (Auto) 20.5 (20-40) % [place] % (Auto) 12.0 H (2-11) % Eos % (Auto) 7.5 H (0-4) % Baso % (Auto) 1.0 (0-2) % Lymph # (Auto) 1.4 (1.2-4.9) X10*3/uL [place] # (Auto) 0.8 (0.1-1.2) X10*3/uL Eos # (Auto) 0.5 H (0.0-0.4) X10*3/uL Baso # (Auto) 0.1 (0.0-0.2) X10*3/uL Abs Immat Gran (auto) 0.02 (0.00-0.03) X10*3/uL Absolute Neuts (auto) 4.0 (2.0-8.3) X10*3/uL Absolute Nucleated RBC 0.000 (0.0-0.012) X10*3/uL Nucleated RBC % (auto) 0.0 (0.0-0.2) /100WBC PT (10.8-13.0) SEC Whole Blood PT 13.2 (11.1-13.5) sec INR (0.9-1.1) Whole Blood INR 1.1 (0.9-1.1) APTT (24.1-38.0) SEC Sodium 137 (135-145) mmol/L Potassium 4.0 (3.3-5.1) mmol/L Chloride 105 (96-108) mmol/L Carbon Dioxide 27 (22-29) mmol/L Anion Gap 9 L (12-20) BUN 11 (9-16) mg/dL Creatinine 1.11 (0.5-1.4) mg/dL Estim Creat Clear Calc 52.9 Estimated GFR > 60 Random Glucose 119 H D (60-115) mg/dL Calcium 8.7 (8.4-10.2) mg/dL Magnesium 2.1 (1.6-2.6) mg/dL Total Bilirubin 0.4 (0.0-1.0) mg/dL Direct Bilirubin 0.2 (0.0-0.5) mg/dL AST 20 (5-37) U/L ALT 20 (0-40) U/L Alkaline Phosphatase 98 (39-117) U/L Troponin I High Sens (<3.5-35.0) ng/L Total Protein 6.9 (6.5-8.0) g/dL Albumin 4.1 (3.5-5.0) g/dL COVID-19 (HUGO) (Negative) COVID-19 Clin Com 10/10/20 10/10/20 10/10/20 Range/Units 05:51 05:51 05:51 WBC (4.8-10.8) X10*3/uL RBC (4.60-5.80) X10*6/uL Hgb (14.0-18.0) g/dl Hct (42-52) % MCV (80-98) fL MCH (27.0-33.0) pg MCHC (31.0-36.0) g/dl RDW (11.0-16.0) % Plt Count (160-400) X10*3/uL MPV (9.4-12.4) fL Immature Gran % (Auto) (0.0-0.4) % Neut % (Auto) (45-73) % Lymph % (Auto) (20-40) % [place] % (Auto) (2-11) % Eos % (Auto) (0-4) % Baso % (Auto) (0-2) % Lymph # (Auto) (1.2-4.9) X10*3/uL [place] # (Auto) (0.1-1.2) X10*3/uL Eos # (Auto) (0.0-0.4) X10*3/uL Baso # (Auto) (0.0-0.2) X10*3/uL Abs Immat Gran (auto) (0.00-0.03) X10*3/uL Absolute Neuts (auto) (2.0-8.3) X10*3/uL Absolute Nucleated RBC (0.0-0.012) X10*3/uL Nucleated RBC % (auto) (0.0-0.2) /100WBC PT 13.1 H (10.8-13.0) SEC Whole Blood PT (11.1-13.5) sec INR 1.1 (0.9-1.1) Whole Blood INR (0.9-1.1) APTT 31.8 (24.1-38.0) SEC Sodium (135-145) mmol/L Potassium (3.3-5.1) mmol/L Chloride (96-108) mmol/L Carbon Dioxide (22-29) mmol/L Anion Gap (12-20) BUN (9-16) mg/dL Creatinine (0.5-1.4) mg/dL Estim Creat Clear Calc Estimated GFR Random Glucose (60-115) mg/dL Calcium (8.4-10.2) mg/dL Magnesium (1.6-2.6) mg/dL Total Bilirubin (0.0-1.0) mg/dL Direct Bilirubin (0.0-0.5) mg/dL AST (5-37) U/L ALT (0-40) U/L Alkaline Phosphatase (39-117) U/L Troponin I High Sens 32.2 (<3.5-35.0) ng/L Total Protein (6.5-8.0) g/dL Albumin (3.5-5.0) g/dL COVID-19 (HUGO) Negative (Negative) COVID-19 Clin Com See Note ECG Data Attestation: I personally reviewed and interpreted this ECG as follows: ECG interpretation date: 10/10/20 ECG interpretation time: 05:55 Interpretation: Rate: 88 Rhythm: NSR [place]: normal Normal P waves. Normal MALLORY. NSIVCD ST T wave : no GEO, nonspecific qTC: normal prior studies: no acute ischemia The study has been interpreted contemporaneously by me. . NIH Stroke Scale Internal: Initial- Upon Arrival Level of Consciousness: Alert Level of Consciousness Questions: Answers both questions correctly Level of Consciousness Commands: Performs both tasks correctly Best Gaze: Normal Visual: No visual loss Facial Palsy: Normal Motor Arm (Right): No drift Motor Arm (Left): No drift Motor Leg (Right): Some effort against gravity Motor Leg (Left): No drift Limb Ataxia: Absent Sensory: Normal Best Language: No aphasia Dysarthia: Normal Extinction and Inattention: No abnormality Score: 2 Critical Care Time Critical Care Time Critical Care Time: Yes Total Critical Care Time: 35 Attestation: admission, tPa, medical consult I attest to this time spent taking care of the patient Discharge Plan Discharge Clinical Impression: Cerebrovascular accident Qualifiers: CVA mechanism: unspecified Qualified Code(s): I63.9 - Cerebral infarction, unspecified Patient Disposition: Admitted As Inpatient
[2020-10-10 05:27] LABS: Prothrombin Time Whole Bld POC 13.2 sec (11.1-13.5); ~PT, ~INR - Anti Coag Clinic 1.1 (0.9-1.1)
[2020-10-10] MEDS: iohexoL 350 MG/ML 75 ML INFUS..BTL 70 ML IV (05:42)
[2020-10-10 05:58] LABS: Basophils Absolute Auto 0.1 X10*3/uL (0.0-0.2); Eosinophils Absolute Auto 0.5 X10*3/uL (0.0-0.4); Eosinophils Percent Auto 7.5 % (0-4); Hemoglobin 12.6 g/dl (14.0-18.0); Imm Gran Abs Auto 0.02 X10*3/uL (0.00-0.03); Imm Gran Pct Auto 0.3 % (0.0-0.4); Lymphocytes Absolute Auto 1.4 X10*3/uL (1.2-4.9); Lymphocytes Percent Auto 20.5 % (20-40); MANUAL DIFF FLAG NO; Mean Corpuscular HGB Conc 33.2 g/dl (31.0-36.0); Mean Corpuscular Hemoglobin 31.4 pg (27.0-33.0); Mean Corpuscular Volume 94.8 fL (80-98); Mean Platelet Volume 9.1 fL (9.4-12.4); Monocytes Absolute Auto 0.8 X10*3/uL (0.1-1.2); Neutrophils Percent Auto 58.7 % (45-73); Platelet Count 272 X10*3/uL (160-400); Red Blood Count 4.01 X10*6/uL (4.60-5.80); Red Cell Distribution Width 12.7 % (11.0-16.0); White Blood Count 6.8 X10*3/uL (4.8-10.8)
[2020-10-10 06:04] LABS: INTERNATIONAL NORM RATIO 1.1 (0.9-1.1); Prothrombin Time 13.1 SEC (10.8-13.0)
[2020-10-10 06:06] LABS: Partial Thromboplastin Time 31.8 SEC (24.1-38.0)
[2020-10-10 06:11] LABS: COVID-19 Test Negative (Negative)
[2020-10-10 06:21] LABS: Alanine Aminotransferase 20 U/L (0-40); Albumin Level 4.1 g/dL (3.5-5.0); Alkaline Phosphatase 98 U/L (39-117); Anion Gap 9 (12-20); Aspartate Amino Transferase 20 U/L (5-37); Bilirubin Direct 0.2 mg/dL (0.0-0.5); Bilirubin Total 0.4 mg/dL (0.0-1.0); Blood Urea Nitrogen 11 mg/dL (9-16); Calcium 8.7 mg/dL (8.4-10.2); Carbon Dioxide 27 mmol/L (22-29); Chloride 105 mmol/L (96-108); Creatinine Clr Calc Pharmacy 52.9; Estimated Glomerular Filt Rate > 60; Glucose Random 119 mg/dL (60-115); Magnesium 2.1 mg/dL (1.6-2.6); Sodium 137 mmol/L (135-145); Total Protein 6.9 g/dL (6.5-8.0)
[2020-10-10 06:26] LABS: Troponin-I High Sensitivity 32.2 ng/L (<3.5-35.0)
--- NOTE | 2020-10-10 07:04 | PC.NURSE ---
report taken from luis angel ponce pt here for stroke s/s, administering tpa att, approx 20 mins left on drip. pt appears to speak in full clear sentences, rr even/unlabored, a&ox4. all neuros appear grossly in tact upon assessment. plan for inpt admission. wctm.
--- NOTE | 2020-10-10 10:46 | MHC.STROKE ---
Addendum entered by Jody Flores RN 10/11/20 14:42: I REVIEWED THE PATIENT'S MRI WITH HIM AND THE LOCATION OF HIS STROKE AND CORRELATING SYMPTOMS. I GAVE HIM A SCREEN SHOT OF HIS MRI. I STRESSED FOLLOWING UP WITH HIS PCP DR ERAZO, TAKING HIS MEDICATIONS PRESCRIBED, CALLING 911 IF STROKE SYMPTOMS RETURN AND HIS INDIVIDUAL RISK FACTORS. HE IS BEING DISCHARGED WITHOUT ANY REHAB SERVICES AND UNDERSTANDS HOW THE TPA (ALTEPLASE) HELPED HIM. Addendum entered by Jody Flores RN 10/11/20 10:33: I MET WITH THE PATIENT THIS MORNING TO DISCUSS HIS PLAN OF CARE AND CLARIFY THE EVENTS AROUND HIM COMING INTO THE HOSPITAL. HE WOKE YESTERDAY EARLY 0400, HE WAS MAKING HIS COFFEE AND PUT THE WATER IN THE [place] WHEN HE DEVELOPED RIGHT SIDED WEAKNESS THAT CAME ON SUDDENLY AT 0430 AND PERSISTED. HIS DID CALL 911. DURING HIS TIME IN THE ED HIS SYMPTOMS PERSISTED, HE AGREED TO THE TPA (ALTEPLASE). HE SAID PRIOR TO GETTING THE MEDICATION HIS SYMPTOMS STARTED TO IMPROVE AND HE WASN'T SURE IF HE WANTED TO TAKE IT (DELAY IN ADMINISTRATION >60M, >45M, >30M DUE TO PATIENT REFUSING AND TRYING TO DECIDE IF HE WANTED IT). HE FINALLY DECIDED TO TAKE THE ALTEPLASE DOOR-TO-TPA = 64 MINUTES. SHORTLY AFTER THE ALTEPLASE WAS GIVEN HIS SYMPTOMS IMPROVED. I DID REVIEW HIS PERSONAL RISK FACTORS, HE SAID HE IS SUPPOSE TO TAKE ASPIRIN DAILY AND HIS BP PRESSURE MEDICATION BUT SOMETIMES HE DOESN'T. HIS PCP IS DR ERAZO AND HE WAS SWITCHED FROM HCTZ TO LORSARTAN. HE HAS A BP CUFF AT HOME THAT HIS CHECKS HIS BP WITH BUT IT IS ONLY DONE ONCE IN A WHILE. HE HAS A FAMILY HISTORY OF CAROTID DISEASE. A VASCULAR CONSULT HAS BEEN ORDERED. WE REVIEWED THE STROKE EDUCATION BOOKLET AND POWERPOINT EDUCATION BOOKLET. ALL STROKE EDUCATION ELEMENTS COVERED. I ANSWERED ALL OF HIS QUESTIONS. HIS MRI IS PENDING. I DISCUSSED THE CASE WITH DR GALLEGOS THIS MORNING. I WILL CONTINUE TO FOLLOW. Addendum entered by Jody Flores RN 10/10/20 15:18: REVIEWED DR. GALLEGOS'S NOTE AND RECOMMENDATIONS. PATIENT WILL BE ADMITTED TO THE ICU UNDER [facility]. FOLLOW STROKE TPA GIVEN ORDERS UNDER STROKE MODULE, POST-TPA VITALS Q15M X8, Q30X12, THEN [id number]. NEURO'S Q1HR. CARDIAC TELEMETRY MONITORING, ADVANCE DIET, REHAB PT/OT, STROKE EDUCATION, MRI W/O, ECHO, VTE WITH PNEUMATIC COMPRESSION DEVICES, ASPIRIN (ANTIPLATELET) AFTER 24 HOURS, LIPID PANEL (STATIN IF LDL > 70). I HAVE NOTIFIED THE ICU TO CALL ME WITH ANY QUESTIONS.[phone]. Original Note: [facility] PRE-NOTIFICATION STROKE ALERT RIGHT SIDED WEAKNESS SUDDEN ONSET [id number]. ARRIVED 0514. NIHSS = 2, DIRECT TO CT & CTA H/N. NO BLEED, NO LVO. PATIENT ELIGIBLE FOR TPA (ALTEPLASE) SEE DR. RANDHAWA'S NOTE. ALTEPLASE 73.35MG ORDERED AT 0549. ACCORDING TO MAR AND GIVEN AT 0618. VITAL STABLE, PASSED SWALLOW SCREEN AT 0954. DR GALLEGOS WAS CALLED. I CALLED THE ED AND SPOKE WITH THE CHARGE NURSE MARICARMEN AND THE PATIENT IS STABLE. WHEN ADMITTED USE THE STROKE TPA GIVEN ORDER SET. IF NEEDED, I AM AVAILABLE AT [phone].
--- NOTE | 2020-10-10 12:07 | P.CNNE_ITS ---
History of Present Illness Data of Consult Service Date: 10/10/20 Primary Care Provider: Morteza Stewart MD 80 years old man with past medical history of hypertension and hyperlipidemia who came to hospital with new onset right-sided weakness that apparently started suddenly and was witnessed. Though there was some improvement of his weakness, it persisted and was treated with intravenous tPA for suspected ischemic stroke causing the weakness. When I saw him he was without any problem cheerful and stating that he was fine. At onset there was no headache speech or language difficulty dizziness or convulsion. Review of Systems Review of Systems: No recent cold or flu-like illness or trauma. [facility] Past Medical History Medical History BPH (benign prostatic hyperplasia) Essential hypertension Hyperlipidemia Near syncope Family History Family History Other CAD (coronary artery disease) Surgical History Surgical History H/O foot surgery Previous back surgery Status post hip surgery Social History Social History Household Members: Spouse Housing: House Alcohol intake: never Smoking Status: Former smoker Tobacco Type: Cigarette Packs Per Day: 1.5 Cigarettes Per Day: 30.0 Years Smoked: 60 Smoked in Last 30 Days: No Use of substances other than those prescribed or required for medical reasons: No Advance Directives: No Advance Directives Information Provided: No service: No Meds Allergies Allergy/AdvReac Type Severity Reaction Status Date / Time amoxicillin [AMOXICILLIN] Allergy Unknown HIVES Verified 07/20/20 12:54 bee pollen [bee stings] Allergy Anaphylaxis Verified 07/20/20 12:54 Home Medications Medication Instructions Recorded Confirmed Last Taken Type cholecalciferol (vitamin D3) 25 mcg PO DAILY 06/20/20 10/10/20 10/09/20 History [Vitamin D3] tamsulosin 0.4 mg PO DAILY 06/20/20 10/10/20 10/09/20 History aspirin 325 mg tablet,delayed 325 mg PO DAILY PRN 07/20/20 10/10/20 10/10/20 History release pravastatin 20 mg tablet 20 mg PO DAILY tab 07/20/20 10/10/20 10/09/20 History Physical Exam Vital Signs: Vital Signs: Last Vital Signs Temp 97.6 F 10/10/20 06:18 Pulse 65 10/10/20 08:53 Resp 16 10/10/20 08:53 BP 125/62 10/10/20 08:53 Pulse Ox 98 10/10/20 08:53 Body Mass Index 25.7 He was alert and awake with normal spontaneity of speech fluency comprehension and affect. Pupils were equal reactive to light extraocular muscles are intact. Visual dickens are full to confrontation. Face was symmetrical. Tongue was midline. There was no pronator drift. Deep tendon reflexes were trace with flexor plantars. There was no arm or leg weakness or ataxia. Speech was normal. Results Labs CBC & Chem 7: 10/10/20 05:51 10/10/20 05:51 Labs: Short CBC 10/10/20 Range/Units 05:51 WBC 6.8 (4.8-10.8) X10*3/uL Hgb 12.6 L (14.0-18.0) g/dl Hct 38.0 L (42-52) % Plt Count 272 (160-400) X10*3/uL BMP 10/10/20 05:51 Sodium 137 Potassium 4.0 Chloride 105 Carbon Dioxide 27 BUN 11 Creatinine 1.11 Calcium 8.7 Liver Function 10/10/20 Range/Units 05:51 Total Bilirubin 0.4 (0.0-1.0) mg/dL Direct Bilirubin 0.2 (0.0-0.5) mg/dL AST 20 (5-37) U/L ALT 20 (0-40) U/L Alkaline Phosphatase 98 (39-117) U/L Albumin 4.1 (3.5-5.0) g/dL His noncontrast head CT revealed no obvious acute lesion. Mild diffuse cerebral atrophy was noted. CTA of brain and neck did not reveal any significant intracranial lesion in vasculature. There was atherosclerotic disease of left vertebral and then bilateral extracranial internal carotid artery disease with about 70% stenosis on the right and 50% on the left. Assessment and Plan (1) Cerebrovascular accident: Qualifiers: CVA mechanism: unspecified Qualified Code(s): I63.9 - Cerebral infarction, unspecified Status: Acute 80 years old man with an underlying history of hypertension who came with new onset of right-sided weakness and was treated in emergency room with intravenous tPA with suspected ischemic infarction. Now he was back to baseline with no obvious weakness. His evaluation revealed moderate right and mild left extracranial carotid disease and extracranial left vertebral disease. At this time my recommendations are to admit him in ICU as per protocol and monitor his blood pressure. After 24 hours of tPA, baby aspirin daily and blood pressure control are recommended. Fasting lipid profile should be obtained. I also recommend obtaining an MRI of brain without contrast to define his pathology. Procedures Date of Service Date of Service: 10/10/20
--- NOTE | 2020-10-10 13:00 | PC.NURSE ---
pt assisted up to wc-bathroom large BM . Offers no pain complaints, sitting up for lunch
--- NOTE | 2020-10-10 13:20 | PM.CCHP ---
History of Present Illness Date of Service: 10/10/20 Chief Complaint: Acute weakness of right upper and right lower extremities 80-year-old male hypertensive with inadvertent inferior wall infarct noted on echo 2 months ago new compared to 2018 with reduced ejection fraction at 40% with diminished diastolic as well as systolic reserve admitted with acute onset of right upper and right lower extremity weakness and received tPA with what appears to be complete reversal of that hemiparesis His CT a shows evidence of cerebrovascular disease with an absent or totally occluded left vertebral artery as well as 70% stenosis of the right internal carotid and 60% stenosis of the left no mention of ulceration and no mention of dissection and thus far entirely in normal sinus rhythm with an EKG demonstrating inferior wall infarct of undated age and a right intraventricular conduction defect and normal sinus rhythm Review of Systems Review of Systems: Yes all other systems are reviewed and are negative [facility] Past Medical History Medical History (Updated 10/10/20 @ 13:29 by Nimisha Case MD) BPH (benign prostatic hyperplasia) Essential hypertension History of acute inferior wall myocardial infarction Hyperlipidemia Near syncope Family History Family History Other CAD (coronary artery disease) Surgical History Surgical History H/O foot surgery Previous back surgery Status post hip surgery Social History Social History Household Members: Spouse Housing: House Alcohol intake: never Smoking Status: Former smoker Tobacco Type: Cigarette Packs Per Day: 1.5 Cigarettes Per Day: 30.0 Years Smoked: 60 Smoked in Last 30 Days: No Use of substances other than those prescribed or required for medical reasons: No Advance Directives: No Advance Directives Information Provided: No service: No Meds Allergies Allergy/AdvReac Type Severity Reaction Status Date / Time amoxicillin [AMOXICILLIN] Allergy Unknown HIVES Verified 07/20/20 12:54 bee pollen [bee stings] Allergy Anaphylaxis Verified 07/20/20 12:54 Home Medications Medication Instructions Recorded Confirmed Last Taken Type cholecalciferol (vitamin D3) 25 mcg PO DAILY 06/20/20 10/10/20 10/09/20 History [Vitamin D3] tamsulosin 0.4 mg PO DAILY 06/20/20 10/10/20 10/09/20 History aspirin 325 mg tablet,delayed 325 mg PO DAILY PRN 07/20/20 10/10/20 10/10/20 History release pravastatin 20 mg tablet 20 mg PO DAILY tab 07/20/20 10/10/20 10/09/20 History Physical Exam Vital Signs: Vital Signs: Last Vital Signs Temp 97.6 F 10/10/20 06:18 Pulse 65 10/10/20 08:53 Resp 16 10/10/20 08:53 BP 125/62 10/10/20 08:53 Pulse Ox 98 10/10/20 08:53 Body Mass Index 25.7 On exam he is awake alert and oriented with intact cranial nerves and nonfocal neurologic Cardiac exam with I adequate bilateral carotid upstrokes no bruits no neck vein distension Chest clear no adventitious sounds but clear-cut evidence of COPD on chest x-ray Abdomen benign no bruits no tenderness no organomegaly Periphery with no livedo no acrocyanosis no edema and palpable distal pulses Results Labs CBC and Chem 7: 10/10/20 05:51 10/10/20 05:51 Labs: Laboratory Results - last 24 hr 10/10/20 10/10/20 10/10/20 05:22 05:51 05:51 MCV 94.8 MCH 31.4 MCHC 33.2 RDW 12.7 Plt Count 272 MPV 9.1 L Immature Gran % (Auto) 0.3 Neut % (Auto) 58.7 Lymph % (Auto) 20.5 [place] % (Auto) 12.0 H Eos % (Auto) 7.5 H Baso % (Auto) 1.0 Lymph # (Auto) 1.4 [place] # (Auto) 0.8 Eos # (Auto) 0.5 H Baso # (Auto) 0.1 Abs Immat Gran (auto) 0.02 Absolute Neuts (auto) 4.0 Absolute Nucleated RBC 0.000 Nucleated RBC % (auto) 0.0 PT Whole Blood PT 13.2 INR Whole Blood INR 1.1 APTT Anion Gap 9 L Estim Creat Clear Calc 52.9 Estimated GFR > 60 Random Glucose 119 H D Calcium 8.7 Magnesium 2.1 Total Bilirubin 0.4 Direct Bilirubin 0.2 AST 20 ALT 20 Alkaline Phosphatase 98 Troponin I High Sens Total Protein 6.9 Albumin 4.1 COVID-19 ([facility]GO) COVID-19 Clin Com 10/10/20 10/10/20 10/10/20 05:51 05:51 05:51 MCV MCH MCHC RDW Plt Count MPV Immature Gran % (Auto) Neut % (Auto) Lymph % (Auto) [place] % (Auto) Eos % (Auto) Baso % (Auto) Lymph # (Auto) [place] # (Auto) Eos # (Auto) Baso # (Auto) Abs Immat Gran (auto) Absolute Neuts (auto) Absolute Nucleated RBC Nucleated RBC % (auto) PT 13.1 H Whole Blood PT INR 1.1 Whole Blood INR APTT 31.8 Anion Gap Estim Creat Clear Calc Estimated GFR Random Glucose Calcium Magnesium Total Bilirubin Direct Bilirubin AST ALT Alkaline Phosphatase Troponin I High Sens 32.2 Total Protein Albumin COVID-19 (HUGO) Negative COVID-19 Clin Com See Note Imaging Radiologist's Impressions: Impressions Head CT 10/10/20 05:17 IMPRESSION: No acute intracranial pathology identified. Given the underlying chronic small vessel ischemic disease, MRI would be more sensitive for detecting acute infarct. This critical result was discussed with Dr. Annika Resendez on 10/10/2020 5:36 AM, and it was ascertained that the content and urgency of the report was understood at the time of direct communication. Head/Neck CTA 10/10/20 05:17 IMPRESSION: 1. Severe stenosis at the origin of the right internal carotid artery, with greater than 70% luminal narrowing. 2. Approximately 50% narrowing at the origin of the left internal carotid artery. 3. Nonopacification of the left vertebral artery beginning at its origin and extending to the level of C4; opacification above this level is suspected to be due to collateral flow. 4. No large vessel occlusion or significant stenosis in the intracranial circulation. This critical result was discussed with Dr. Annika Resendez on 10/10/2020 5:36 AM, and it was ascertained that the content and urgency of the report was understood at the time of direct communication. Chest X-Ray 10/10/20 05:18 IMPRESSION: No acute cardiopulmonary findings. Assessment and Plan (1) Cerebrovascular accident: Qualifiers: CVA mechanism: unspecified Qualified Code(s): I63.9 - Cerebral infarction, unspecified Status: Acute (2) Abnormal echocardiogram: Status: Acute (3) Essential hypertension: Status: Acute (4) Syncope and collapse: Status: Acute (5) Acute hyponatremia: Status: Acute (6) Syncope: Qualifiers: Encounter type: subsequent encounter Status: Acute 80-year-old hypertensive male with underlying COPD admitted with right hemiparesis consistent with acute CVA negative CT scan of his head evidence of cerebrovascular disease on CT a of head neck and reversal of symptoms with tPA being admitted for observation
[2020-10-10] MEDS: Lactated Ringers 1,000 ML 50 ML IVCONT (14:23)
--- NOTE | 2020-10-10 20:23 | PC.NURSE ---
report given to DORYS isaacs pt to floor on stretcher with monitor and pct.
[2020-10-10 21:15] LABS: MANUAL DIFF FLAG NO
[2020-10-10 21:18] LABS: Basophils Absolute Auto 0.1 X10*3/uL (0.0-0.2); Basophils Percent Auto 0.8 % (0-2); Eosinophils Absolute Auto 0.4 X10*3/uL (0.0-0.4); Eosinophils Percent Auto 5.2 % (0-4); Hematocrit 40.2 % (42-52); Hemoglobin 13.4 g/dl (14.0-18.0); Imm Gran Abs Auto 0.03 X10*3/uL (0.00-0.03); Imm Gran Pct Auto 0.4 % (0.0-0.4); Lymphocytes Absolute Auto 1.7 X10*3/uL (1.2-4.9); Lymphocytes Percent Auto 20.3 % (20-40); Mean Corpuscular HGB Conc 33.3 g/dl (31.0-36.0); Mean Corpuscular Hemoglobin 31.4 pg (27.0-33.0); Mean Corpuscular Volume 94.1 fL (80-98); Mean Platelet Volume 9.5 fL (9.4-12.4); Monocytes Percent Auto 12.1 % (2-11); Neutrophils Absolute Auto 5.2 X10*3/uL (2.0-8.3); Neutrophils Percent Auto 61.2 % (45-73); Platelet Count 295 X10*3/uL (160-400); Red Blood Count 4.27 X10*6/uL (4.60-5.80); Red Cell Distribution Width 12.8 % (11.0-16.0); White Blood Count 8.5 X10*3/uL (4.8-10.8)
[2020-10-10 21:45] LABS: Anion Gap 12 (12-20); Blood Urea Nitrogen 15 mg/dL (9-16); Calcium 8.9 mg/dL (8.4-10.2); Carbon Dioxide 26 mmol/L (22-29); Chloride 106 mmol/L (96-108); Cholesterol 164 mg/dL; Creatinine Clr Calc Pharmacy 52.9; Estimated Glomerular Filt Rate > 60; Glucose Random 88 mg/dL (60-115); HDL Cholesterol 34 mg/dL; LDL Cholesterol Calculated 98 mg/dl; Potassium 4.3 mmol/L (3.3-5.1); Sodium 140 mmol/L (135-145); Triglycerides 162 mg/dL
[2020-10-11] VITALS (8 sets, daily range): BP systolic 103–172; BP diastolic 61–79; PULSE 68–95; RESP 16–24; TEMP 36.6–36.8; O2SAT 95–98
[2020-10-11 06:03] LABS: Basophils Absolute Auto 0.1 X10*3/uL (0.0-0.2); Basophils Percent Auto 0.8 % (0-2); Eosinophils Absolute Auto 0.5 X10*3/uL (0.0-0.4); Eosinophils Percent Auto 5.9 % (0-4); Hematocrit 38.1 % (42-52); Hemoglobin 12.8 g/dl (14.0-18.0); Imm Gran Abs Auto 0.02 X10*3/uL (0.00-0.03); Imm Gran Pct Auto 0.3 % (0.0-0.4); Lymphocytes Absolute Auto 1.4 X10*3/uL (1.2-4.9); Lymphocytes Percent Auto 17.9 % (20-40); MANUAL DIFF FLAG NO; Mean Corpuscular HGB Conc 33.6 g/dl (31.0-36.0); Mean Corpuscular Hemoglobin 31.5 pg (27.0-33.0); Mean Corpuscular Volume 93.8 fL (80-98); Mean Platelet Volume 9.6 fL (9.4-12.4); Monocytes Absolute Auto 0.8 X10*3/uL (0.1-1.2); Monocytes Percent Auto 10.8 % (2-11); Neutrophils Absolute Auto 4.9 X10*3/uL (2.0-8.3); Neutrophils Percent Auto 64.3 % (45-73); Platelet Count 279 X10*3/uL (160-400); Red Blood Count 4.06 X10*6/uL (4.60-5.80); Red Cell Distribution Width 12.6 % (11.0-16.0); White Blood Count 7.7 X10*3/uL (4.8-10.8)
[2020-10-11 06:21] LABS: INTERNATIONAL NORM RATIO 1.2 (0.9-1.1); Prothrombin Time 14.4 SEC (10.8-13.0)
[2020-10-11 06:22] LABS: Partial Thromboplastin Time 29.9 SEC (24.1-38.0)
[2020-10-11 07:08] LABS: Anion Gap 13 (12-20); Blood Urea Nitrogen 11 mg/dL (9-16); Calcium 8.6 mg/dL (8.4-10.2); Carbon Dioxide 23 mmol/L (22-29); Chloride 107 mmol/L (96-108); Creatinine Clr Calc Pharmacy 56.5; Estimated Glomerular Filt Rate > 60; Glucose Random 94 mg/dL (60-115); Phosphorus 2.8 mg/dL (2.7-4.5); Sodium 139 mmol/L (135-145)
[2020-10-11 07:51] LABS: Glucose, Whole Blood 95 mg/dL (60-115)
--- NOTE | 2020-10-11 08:58 | MHC.CM.PN ---
CM met with Patient and spoke with /HCP/Vikki ( who handles everything ) at [phone] and addressed IMM, per request, mailing original to Vikki and placing a copy on the chart.Patient lives in a house with his and always used a cane [employer]. The goal for dc is to return home with [facility] and CM has initiated and will follow for dc planning. Patient has been to [facility] in the past.PCP is Dr. Morteza Rashid.
[2020-10-11] MEDS: Tamsulosin HCL 0.4 MG CAPSULE PO (09:37)
[2020-10-11] MEDS: Aspirin Enteric Coated 81 MG TABLET.DR PO (09:37)
--- NOTE | 2020-10-11 11:55 | P.CONGS_ITS ---
History of Present Illness Consult details Consult date: 10/11/20 Reason for consult: other (stroke) Narrative: Pleasant 80-year-old gentleman presented originally to the hospital with acute onset stroke. Had demonstrated right-sided hemiparesis. Subsequently underwent tPA. It appears that most of the symptoms have resolved. He underwent CT angiogram of the carotids and now presents for vascular evaluation. Review of Systems Review of Systems: Yes all other systems are reviewed and are negative Constitutional: Constitutional: Reports no additional constitutional complaints ENT: Reports Normal hearing present Cardiovascular: Cardiovascular: Denies chest pain, Denies chest pain at rest, Denies chest pain with activity and Denies pedal edema Respiratory: Respiratory: Denies cough Gastrointestinal: Gastrointestinal: Denies abdominal pain Musculoskeletal: Musculoskeletal: Denies abnormal gait, Denies muscle cramps and Denies radiating pain into limb Integumentary/Breasts: Skin/Breast: Denies skin ulcer and Denies wounds Neurologic: Reports Normal hearing present and Denies abnormal gait Psychiatric: Psychiatric: Reports no additional psychiatric complaints PMFSH Past Medical History Medical History BPH (benign prostatic hyperplasia) Essential hypertension History of acute inferior wall myocardial infarction Hyperlipidemia Near syncope Family History Family History Other CAD (coronary artery disease) Surgical History Surgical History H/O foot surgery Previous back surgery Status post hip surgery Social History Social History Household Members: Spouse Housing: House Do you presently have visiting nurse or other home services: No (goes to [place]) Alcohol intake: never Smoking Status: Former smoker Tobacco Type: Cigarette Packs Per Day: 1.5 Cigarettes Per Day: 30.0 Years Smoked: 60 Smoked in Last 30 Days: No Use of substances other than those prescribed or required for medical reasons: No Have you been hit, kicked, punched, or otherwise hurt by someone within the past year? If so, by whom?: No Do you feel safe in your current relationship?: Yes Is there a partner from a previous relationship who is making you feel unsafe now?: No Are you made to feel afraid or neglected: No Advance Directives: No Advance Directives Information Provided: No Do you have thoughts of harming others: None Do you have a plan to hurt others: No Plan Recently lost weight without trying: No service: Yes Current occupational status: retired Meds Allergies Allergy/AdvReac Type Severity Reaction Status Date / Time amoxicillin [AMOXICILLIN] Allergy Unknown HIVES Verified 07/20/20 12:54 bee pollen [bee stings] Allergy Anaphylaxis Verified 07/20/20 12:54 Active Medications: Current Medications Generic Name Dose Route Start Last Admin Trade Name Freq PRN Reason Stop Dose Admin Aspirin 81 mg 10/11/20 09:10 10/11/20 09:37 Aspirin Enteric Coated 81 Mg Tablet. PO 81 mg DAILY [facility] Administration Atorvastatin Calcium 80 mg 10/11/20 21:00 Atorvastatin Calcium 80 Mg Tablet PO BEDTIME [facility] Sodium Chloride 3 ml 10/11/20 00:00 10/11/20 07:35 0.9 % Sodium Chloride Flush 3 Ml Syringe IVFLUSH Not Given QSHIFT [facility] Tamsulosin HCl 0.4 mg 10/11/20 09:08 10/11/20 09:37 Tamsulosin Hcl 0.4 Mg Capsule PO 0.4 mg DAILY [facility] Administration Home Medications Medication Instructions Recorded Confirmed Last Taken Type cholecalciferol (vitamin D3) 25 mcg PO DAILY 06/20/20 10/10/20 10/09/20 History [Vitamin D3] tamsulosin 0.4 mg PO DAILY 06/20/20 10/10/20 10/09/20 History aspirin 325 mg tablet,delayed 325 mg PO DAILY PRN 07/20/20 10/10/20 10/10/20 History release pravastatin 20 mg tablet 20 mg PO DAILY tab 07/20/20 10/10/20 10/09/20 History Physical Exam Vital Signs: Vital Signs: Last Vital Signs Temp 98.2 F 10/11/20 11:16 Pulse 75 10/11/20 11:16 Resp 18 10/11/20 11:16 BP 103/61 10/11/20 11:16 Pulse Ox 98 10/11/20 11:16 Body Mass Index 25.0 Const: General: cooperative, healthy appearing and comfortable Orientation/consciousness: oriented to person, oriented to place and oriented to time HENMT: Head: Yes normal to inspection Neck: Neck: Yes normal visual inspection Carotids: no bruits Chest: Chest palpation & inspection: normal inspection of the chest Resp: Effort & Inspection: normal respiratory effort and able to speak in c omplete sentences Auscultation: clear to auscultation bilaterally, no mercury cracking tester ckles, no rales, no rhonchi and no wheezes Cardio: Rate: regular rate Rhythm: regular rhythm Heart sounds: S1 normal heart sound present and S2 normal heart sound present Bruits: no carotid bruits Peripheral pulses: Peripheral pulses 2+ throughout GI: Inspection: Yes normal to inspection Skin: Wounds: no wounds Hair: normal Neuro: General: oriented to person, oriented to place and oriented to time Cranial nerves: Yes CN's II-XII intact bilaterally and Yes Normal hearing present Cognition (Neuro): normal cognition Motor exam (neuro): 5/5 motor strength present throughout Extrem: Other: venous exam: No significant superficial varicosities or spider telangiectasias, minimal edema General: No clubbing, No cyanosis and No edema Psych: Appearance: grossly normal Mental Status: mental status grossly normal Speech and movement: Normal speech and movement present Results Labs Result diagrams: 10/11/20 05:23 10/11/20 05:23 Labs: Abnormal lab results 10/10/20 10/11/20 10/11/20 Range/Units 19:32 05:23 05:23 RBC 4.27 L 4.06 L (4.60-5.80) X10*6/uL Hgb 13.4 L 12.8 L (14.0-18.0) g/dl Hct 40.2 L 38.1 L (42-52) % Lymph % (Auto) 17.9 L (20-40) % [place] % (Auto) 12.1 H (2-11) % Eos % (Auto) 5.2 H 5.9 H (0-4) % Eos # (Auto) 0.5 H (0.0-0.4) X10*3/uL PT 14.4 H (10.8-13.0) SEC INR 1.2 H (0.9-1.1) Short CBC 10/10/20 10/11/20 Range/Units 19:32 05:23 WBC 8.5 7.7 (4.8-10.8) X10*3/uL Hgb 13.4 L 12.8 L (14.0-18.0) g/dl Hct 40.2 L 38.1 L (42-52) % Plt Count 295 279 (160-400) X10*3/uL BMP 10/10/20 10/11/20 20:56 05:23 Sodium 140 139 Potassium 4.3 4.0 Chloride 106 107 Carbon Dioxide 26 23 BUN 15 11 Creatinine 1.11 1.04 Calcium 8.9 8.6 All other labs normal. Assessment and Plan (1) Cerebrovascular accident: Qualifiers: CVA mechanism: unspecified Qualified Code(s): I63.9 - Cerebral infarction, unspecified Status: Acute Patient admitted for acute stroke. CT angiogram demonstrates right-sided stenosis of 70% and left-sided of 50%. This does not correlate with clinical findings. He will need to follow up with me as an outpatient regarding his right carotid stenosis. Once acute issues resolve will need future right carotid endarterectomy but that is not the source of his current stroke. Will continue with medical workup and await MRI results. Thank you for allowing us to assist in this patient's care. Forty-five minutes was spent with direct discussion with the patient, record assessment, ordering and reviewing imaging, independent assessment of imaging, and management of services. Procedures Date of Service Date of Service: 10/11/20
--- NOTE | 2020-10-11 13:51 | PM.DS ---
DS: Providers Provider Date of Service: 10/11/20 Date of admission: 10/10/20 13:30 Primary care physician: Morteza Stewart MD Consults: 10/10/20 07:00 Consult to Neurology Routine Consulting Provider: [facility] Reason for consultation: Acute CVA for eval 10/11/20 09:08 Consult to Vascular Surgery Routine Consulting Provider: Loc Cabrera Reason for consultation: right sided CVA. right ICA with greater than 70% luminal narrowing. 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 (4) Stenosis of right internal carotid artery: Status: Acute DS: Medications Discharge Medications Home Medications: Home Medications Medication Instructions Recorded Confirmed cholecalciferol (vitamin D3) 25 mcg PO DAILY 06/20/20 10/10/20 [Vitamin D3] tamsulosin 0.4 mg PO DAILY 06/20/20 10/10/20 aspirin 325 mg tablet,delayed 325 mg PO DAILY PRN 07/20/20 10/10/20 release pravastatin 20 mg tablet 20 mg PO DAILY tab 07/20/20 10/10/20 Previous Rx's Medication Instructions Recorded amlodipine 5 mg tablet 5 mg PO DAILY #90 tab 07/20/20 DS: Summary Hospital Course Hospital Course: Admission note HPI 80-year-old male hypertensive with inadvertent inferior wall infarct noted on echo 2 months ago new compared to 2018 with reduced ejection fraction at 40% with diminished diastolic as well as systolic reserve admitted with acute onset of right upper and right lower extremity weakness and received tPA with what appears to be complete reversal of that hemiparesis His CT a shows evidence of cerebrovascular disease with an absent or totally occluded left vertebral artery as well as 70% stenosis of the right internal carotid and 60% stenosis of the left no mention of ulceration and no mention of dissection and thus far entirely in normal sinus rhythm with an EKG demonstrating inferior wall infarct of undated age and a right intraventricular conduction defect and normal sinus rhythm Hospital course The patient was admitted to the hospital for evaluation of right-sided weakness. A CT scan showed no acute bleeding or areas of infarction. A CTA was consistent with severe stenosis as the right internal carotid artery greater than 70% with almost 50% narrowing on the left internal carotid. Received tPA and was admitted to the ICU for observation with complete resolution of the weakness in the right side. He was evaluated by PT/OT who recommended no need for therapy as the patient is back to his baseline. Evaluated by Neurology who recommended baby aspirin and high-dose statin. An MRI was done showing a small focus in the left posterior basal ganglia with no large infarct, hemorrhage or mass. Time Spent with Patient Time attestation: Total time spent providing and/or coordinating discharge services: Discharge coordination time: Greater than 30 minutes Quality: Stroke Pt Provided Written Stroke Discharge Instructions: Patient given written information Physical Exam Vital Signs: Vital Signs: Last Vital Signs Temp 98.2 F 10/11/20 11:16 Pulse 75 10/11/20 11:16 Resp 18 10/11/20 11:16 BP 103/61 10/11/20 11:16 Pulse Ox 98 10/11/20 11:16 Body Mass Index 25.0 Const: Other: Constitutional : Alert, oriented, not in distress Neck : Normal inspection, Supple Cardiovascular : RRR, S1 S2, no lower extremity edema Respiratory : Good bilateral air entry, no crackles, wheezes or rhonchi Gastrointestinal: soft, lax, Normal bowel sounds, Non tender Skin : Warm/Dry, No rash Neurological : Alert & oriented x3, No focal deficit DS: Data Data Completed and Pending Labs on day of discharge: Laboratory Results - last 24 hr 10/10/20 10/10/20 10/11/20 19:32 20:56 05:23 WBC 8.5 7.7 RBC 4.27 L 4.06 L Hgb 13.4 L 12.8 L Hct 40.2 L 38.1 L MCV 94.1 93.8 MCH 31.4 31.5 MCHC 33.3 33.6 RDW 12.8 12.6 Plt Count 295 279 MPV 9.5 9.6 Immature Gran % (Auto) 0.4 0.3 Neut % (Auto) 61.2 64.3 Lymph % (Auto) 20.3 17.9 L [place] % (Auto) 12.1 H 10.8 Eos % (Auto) 5.2 H 5.9 H Baso % (Auto) 0.8 0.8 Lymph # (Auto) 1.7 1.4 [place] # (Auto) 1.0 0.8 Eos # (Auto) 0.4 0.5 H Baso # (Auto) 0.1 0.1 Abs Immat Gran (auto) 0.03 0.02 Absolute Neuts (auto) 5.2 4.9 Absolute Nucleated RBC 0.000 0.000 Nucleated RBC % (auto) 0.0 0.0 PT INR APTT Sodium 140 Potassium 4.3 Chloride 106 Carbon Dioxide 26 Anion Gap 12 BUN 15 Creatinine 1.11 Estim Creat Clear Calc 52.9 Estimated GFR > 60 POC Glucose Random Glucose 88 Calcium 8.9 Phosphorus Magnesium Triglycerides 162 Cholesterol 164 LDL Cholesterol, Calc 98 HDL Cholesterol 34 10/11/20 10/11/20 10/11/20 05:23 05:23 07:30 WBC RBC Hgb Hct MCV MCH MCHC RDW Plt Count MPV Immature Gran % (Auto) Neut % (Auto) Lymph % (Auto) [place] % (Auto) Eos % (Auto) Baso % (Auto) Lymph # (Auto) [place] # (Auto) Eos # (Auto) Baso # (Auto) Abs Immat Gran (auto) Absolute Neuts (auto) Absolute Nucleated RBC Nucleated RBC % (auto) PT 14.4 H INR 1.2 H APTT 29.9 Sodium 139 Potassium 4.0 Chloride 107 Carbon Dioxide 23 Anion Gap 13 BUN 11 Creatinine 1.04 Estim Creat Clear Calc 56.5 Estimated GFR > 60 POC Glucose 95 Random Glucose 94 Calcium 8.6 Phosphorus 2.8 Magnesium 2.0 Triglycerides Cholesterol LDL Cholesterol, Calc HDL Cholesterol Discharge Plan Discharge Patient Disposition: Home, Self-Care Referrals: Morteza Stewart MD [Primary Care Provider] - Discharge Medications: New atorvastatin 80 mg Tablet 80 mg PO BEDTIME Qty: 90 RF: 1 aspirin 81 mg Tablet,Delayed Release (Dr/Ec) 81 mg PO DAILY Qty: 90 RF: 1 Continued tamsulosin 0.4 mg Capsule 0.4 mg PO DAILY RF: 0 cholecalciferol (vitamin D3) [Vitamin D3] 25 mcg (1,000 unit) Capsule 25 mcg PO DAILY RF: 0 aspirin 325 mg tablet,delayed release (DR/EC) 325 mg PO DAILY PRN (Reason: Pain) RF: 0 amlodipine 5 mg tablet 5 mg PO DAILY Qty: 90 RF: 4 Discontinued pravastatin 20 mg tablet 20 mg PO DAILY RF: 0 Diet: advance to usual diet Activity on Discharge: As tolerated Stand Alone Forms: Patient Portal Discharge page Care Plan Goals: Read below Health Concerns: Read below Plan of Treatment: You were admitted to the hospital for evaluation of right-sided weakness. A CT scan of the head was negative for any acute bleeding. You were admitted to ICU and received treatment of tPA with good response as the weakness completely resolved. Evaluated by neurologist with recommendation for daily baby aspirin and atorvastatin.
--- NOTE | 2020-10-11 14:03 | MHC.CM.PN ---
Patient has been medically cleared for dc to home today, no services. IMM addressed this morning.
== END 2020-10-11 15:37 | disposition home or self-care (01) | DRG 62 ==
LOC: HO.ED 06:13 → HO.EDOVER 14:24 → HO.ICU 18:24 → HO.IMC 10-11 05:42
PROVIDERS: Hospitalist; Physician Assistant; Admitting Provider Internal Medicine Cardiovascular Disease; Emergency Provider Emergency Medicine; PCP Dermatology Procedural Dermatology; Visit Provider Student in an Organized Health Care Education/Training Program
DX: I63.89 Other cerebral infarction (principal); G81.94 Hemiplegia, unspecified affecting left nondominant side; E87.1 Hypo-osmolality and hyponatremia; I65.21 Occlusion and stenosis of right carotid artery; E78.5 Hyperlipidemia, unspecified; R29.702 NIHSS score 2; I10 Essential (primary) hypertension; J44.9 Chronic obstructive pulmonary disease, unspecified; R93.1 Abnormal findings on diagnostic imaging of heart and coronary circulation; Z20.822 Contact with and (suspected) exposure to COVID-19; Z87.891 Personal history of nicotine dependence; Z88.0 Allergy status to penicillin; Z79.82 Long term (current) use of aspirin; Z79.899 Other long term (current) drug therapy
CPT/HCPCS: 36415; 70450; 70496; 70498; 70551; 71045; 80048; 80061; 80076; 82947; 83735; 84100; 84484; 85025; 85610; 85730; 87635; 93005; 97161; 97166; 99285; J2997; Q9967

== ENCOUNTER → 2020-10-12 10:55 | Outpatient (BNVA) | payer MEDICARE, SELFPAY | PROVIDERS: PCP Dermatology Procedural Dermatology; Visit Provider Surgery Vascular Surgery | CPT/HCPCS: Q3014 ==

== ENCOUNTER → 2020-10-22 12:40 | Outpatient (BNVA) | payer MEDICARE, SELFPAY | PROVIDERS: PCP Dermatology Procedural Dermatology; Visit Provider Nurse Practitioner Family | DX: Z01.810 Encounter for preprocedural cardiovascular examination (principal); I65.21 Occlusion and stenosis of right carotid artery; I49.3 Ventricular premature depolarization; I45.10 Unspecified right bundle-branch block; I21.19 ST elevation (STEMI) myocardial infarction involving other coronary artery of inferior wall; R93.1 Abnormal findings on diagnostic imaging of heart and coronary circulation; Z79.899 Other long term (current) drug therapy | CPT/HCPCS: 93005; 99212 ==

== ENCOUNTER → 2020-10-26 10:36 | Outpatient (REF) | payer MEDICARE, SELFPAY ==
--- NOTE | ~2020-10-26 | NM_ITS ---
Myocardial perfusion study Indication: Preoperative evaluation with abnormal echocardiogram Technique: The patient was brought in for a Lexiscan perfusion study on 10/26/2020. Patient performed low-level exercise and was injected 0.4 mg of Lexiscan intravenously. Within a minute of injection, 25 mCi of sestamibi was given intravenously. Images were obtained using the SPECT gamma camera interlaced with the gating device. Images were obtained in supine position. Resting perfusion study was performed on 10/27/2020. Patient was administered 25 mCi of sestamibi intravenously at rest. Images were then obtained in supine position. Images obtained with and without CT attenuation. Total DLP 61 mGy-cm. Images were processed with the software and compared side to side in short axis, horizontal long axis and vertical long axis views. Findings: The stress perfusion study showed large area of absent uptake in the inferior, inferoseptal and inferolateral wall of the LV myocardium as well as severely reduced uptake in the lateral and moderately reduced uptake in the basal anterolateral wall of the LV myocardium. The inferoseptum, anterior and mid and distal anterolateral wall are normally perfused.. The gated study shows reduced LV systolic function with calculated LVEF of 39%. LV cavity is moderately dilated size. The gated study shows absent wall thickening and contraction of inferior and inferolateral segments. Resting study shows partially reversible distal inferolateral, lateral basal anterolateral. Gating at rest reveals inferior wall motion with ejection fraction at 45%. The findings are consistent with large area of absent uptake with no reversible inferior and ingested inferolateral wall in the entire except for partial reversibility of the distal inferolateral wall of the LV myocardium. Partial reversibility of the lateral and completely reversible area of the basal anterolateral wall of the LV myocardium. This is suggestive wall inferior and inferolateral myocardial infarct with elizabeth-infarct ischemia and possible ischemia in the basal anterolateral wall in the circumflex territory.. NM/NM ashlyn perf SPECT rest & str Impression: 1. Myocardial perfusion imaging study shows large area of infarcted myocardium, anterolateral and inferior inferolateral wall possibly ischemia of the lateral and basal anterolateral wall. 2. Gated LVEF is 39% with stress and 45% with stress 3. Transient ischemic dilatation present EKG is nondiagnostic for ischemia
--- NOTE | 2020-10-26 12:12 | CA_ITS ---
Acquisition Time: 2020-10-26 10:59:28 Total Exercise Time: 00:02:00 Test Indications: Abnormal ECG Medications: ASA METOPROLOL LISINOPRIL ATORVASTATIN TAMSULOSIN Protocol: LEXISCAN Max HR: 096 BPM 69% of Pred: 138 BPM Max BP: 132/070 mmHG Max Work Load: 1.0 METS Pharmacological stress test using Lexiscan, while sitting and kicking his feet. Pt tolerated well, denies any anginal sx. EKG with occ. PVC's. Non-diagnostic for ischemia. Nuclear images to follow. Normotensive response to test. Test reviewed with Dr. Carmona. Referred By: Emilie Thompson Overread By: Dorita Ascencio NP
== END ==
LOC: HO.CARD 10:36
PROVIDERS: Visit Provider Nurse Practitioner Family
DX: Z01.810 Encounter for preprocedural cardiovascular examination (principal); R93.1 Abnormal findings on diagnostic imaging of heart and coronary circulation
CPT/HCPCS: 78452; 93017; A9500; J0280; J2785

== ENCOUNTER 2020-10-27 | Outpatient (REF) | payer MEDICARE, SELFPAY ==
[2020-10-27 11:52] VITALS: BP 136/63; PULSE 73; RESP 20; O2SAT 96; BMI 25.6
--- NOTE | 2020-10-27 12:30 | HO.ANESPROP2 ---
HPI - Anesthesia Eval Consult details Narrative: 80yo M for Right Carotid Enderterectomy Pt not cardiac cleared - abn Echo and stresss. Being sent for cath. 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) Stenosis of right internal carotid artery (Acute) Preop cardiovascular exam (Acute) Inferior myocardial infarction (Acute) Right bundle branch block (Acute) Abnormal echocardiogram (Acute) Past Medical History Medical History Abnormal echocardiogram Arthritis BPH (benign prostatic hyperplasia) Cerebrovascular accident COVID-19 vaccine administered Essential hypertension Hard of hearing History of acute inferior wall myocardial infarction Hyperlipidemia Near syncope Right bundle branch block Family History Family History Other CAD (coronary artery disease) Family history of problems with anesthesia: No Surgical History Surgical History H/O foot surgery Previous back surgery History of Problems with Anesthesia: No Social History Social History Household Members: Spouse Housing: House Alcohol intake: never Smoking Status: Former smoker Tobacco Type: Cigarette Packs Per Day: 1.5 Cigarettes Per Day: 30.0 Years Smoked: 60 service: Yes Current occupational status: retired Narrative Narrative: No recent illness. Chronic sinus congestion. Denies post nasal drip. Activity limited. Reports twinge in left chest rarely. No SOB. Meds Allergies Allergy/AdvReac Type Severity Reaction Status Date / Time bee pollen [bee stings] Allergy Severe Anaphylaxis Verified 10/12/20 11:01 amoxicillin [AMOXICILLIN] AdvReac Intermediate Gastrointestinal Verified 10/27/20 12:20 Upset Home Medications Medication Instructions Recorded Confirmed Last Taken Type cholecalciferol (vitamin D3) 25 mcg PO DAILY 06/20/20 10/28/20 10/09/20 History [Vitamin D3] tamsulosin 0.4 mg PO BEDTIME 06/20/20 10/28/20 10/09/20 History aspirin 325 mg tablet,delayed 325 mg PO DAILY PRN 07/20/20 10/28/20 10/10/20 History release Exam Exam Date and Time: October 27, 2020 1230 Height,Weight and Vital Signs: Height 5 ft 10 in Weight 81 kg Last Vital Signs Pulse 73 10/27/20 11:52 Resp 20 10/27/20 11:52 BP 136/63 10/27/20 11:52 Pulse Ox 96 10/27/20 11:52 Pertinent Lab Results Pertinent Lab Results: Laboratory Tests 10/11/20 10/11/20 05:23 05:23 WBC 7.7 Hgb 12.8 L Hct 38.1 L Plt Count 279 Sodium 139 Potassium 4.0 Chloride 107 Carbon Dioxide 23 BUN 11 Creatinine 1.04 Narrative Narrative: EKG 10/2020 SR, Right BBB, inferior infarct, age indetermined - unchanged from prior, rate 77 Echo 08/2020 Conclusions: - The calculated ejection fraction is 40% by biplane method. - There is evidence of regional wall motion abnormalities. - There is mild calcification of the aortic valve. - There is mild mitral annular calcification. Lexiscan stress 10/2020 Pharmacological stress test using Lexiscan, while sitting and kicking his feet. Pt tolerated well, denies any anginal sx. EKG with occ. PVC's. Non-diagnostic for ischemia. Nuclear images to follow. Normotensive response to test. MIBI 10/2020 Airway Mallampati Class: II TM Dist: >3cm Neck ROM: Full Denture: Upper and Lower Heart: RRR Lungs: Faint exp wheeze in RUL. Otherwise clear. Assessment and Plan Assessment Anesthesia Assessment: Anesthesia Plan Discussed and PAT Visit
== END 2020-10-27 00:01 ==
LOC: HO.LAB
PROVIDERS: PCP Dermatology Procedural Dermatology; Visit Provider Surgery Vascular Surgery
DX: I65.21 Occlusion and stenosis of right carotid artery (principal)
CPT/HCPCS: 86850; 86900

== ENCOUNTER → 2020-10-28 11:30 | Outpatient (BNVA) | payer MEDICARE, SELFPAY | PROVIDERS: PCP Dermatology Procedural Dermatology; Visit Provider Nurse Practitioner Family | DX: Z01.810 Encounter for preprocedural cardiovascular examination (principal); R93.1 Abnormal findings on diagnostic imaging of heart and coronary circulation; R94.39 Abnormal result of other cardiovascular function study; I21.19 ST elevation (STEMI) myocardial infarction involving other coronary artery of inferior wall; I65.21 Occlusion and stenosis of right carotid artery; I49.3 Ventricular premature depolarization; I45.10 Unspecified right bundle-branch block | CPT/HCPCS: 99212 ==

== ENCOUNTER 2020-10-29 09:34 | Outpatient (REF) | payer MEDICARE, SELFPAY ==
[2020-10-29 10:00] LABS: MANUAL DIFF FLAG NO
[2020-10-29 10:08] LABS: Basophils Absolute Auto 0.1 X10*3/uL (0.0-0.2); Eosinophils Absolute Auto 0.4 X10*3/uL (0.0-0.4); Eosinophils Percent Auto 6.2 % (0-4); Hematocrit 38.2 % (42-52); Hemoglobin 12.3 g/dl (14.0-18.0); Imm Gran Abs Auto 0.01 X10*3/uL (0.00-0.03); Imm Gran Pct Auto 0.1 % (0.0-0.4); Lymphocytes Absolute Auto 1.3 X10*3/uL (1.2-4.9); Lymphocytes Percent Auto 19.3 % (20-40); Mean Corpuscular HGB Conc 32.2 g/dl (31.0-36.0); Mean Corpuscular Hemoglobin 30.8 pg (27.0-33.0); Mean Corpuscular Volume 95.5 fL (80-98); Mean Platelet Volume 9.7 fL (9.4-12.4); Monocytes Absolute Auto 0.8 X10*3/uL (0.1-1.2); Monocytes Percent Auto 12.1 % (2-11); Neutrophils Absolute Auto 4.3 X10*3/uL (2.0-8.3); Neutrophils Percent Auto 61.3 % (45-73); Platelet Count 251 X10*3/uL (160-400); Red Cell Distribution Width 12.7 % (11.0-16.0)
[2020-10-29 10:16] LABS: INTERNATIONAL NORM RATIO 1.1 (0.9-1.1); Prothrombin Time 13.6 SEC (10.8-13.0)
[2020-10-29 10:36] LABS: Anion Gap 13 (12-20); Blood Urea Nitrogen 12 mg/dL (9-16); Calcium 8.7 mg/dL (8.4-10.2); Carbon Dioxide 25 mmol/L (22-29); Chloride 107 mmol/L (96-108); Estimated Glomerular Filt Rate > 60; Glucose Random 82 mg/dL (60-115); Potassium 4.6 mmol/L (3.3-5.1); Sodium 140 mmol/L (135-145)
== END 2020-10-29 09:35 | disposition home or self-care (01) ==
LOC: HO.LAB 09:34
PROVIDERS: PCP Internal Medicine; Visit Provider Nurse Practitioner Family
DX: R94.39 Abnormal result of other cardiovascular function study (principal)
CPT/HCPCS: 36415; 80048; 85025; 85610

== ENCOUNTER → 2020-11-19 10:49 | Outpatient (BNVA) | payer MEDICARE, SELFPAY | PROVIDERS: PCP Internal Medicine; Visit Provider Nurse Practitioner Family | DX: Z01.810 Encounter for preprocedural cardiovascular examination (principal); I21.19 ST elevation (STEMI) myocardial infarction involving other coronary artery of inferior wall; I49.3 Ventricular premature depolarization; I45.10 Unspecified right bundle-branch block; I65.21 Occlusion and stenosis of right carotid artery; R93.1 Abnormal findings on diagnostic imaging of heart and coronary circulation; R94.39 Abnormal result of other cardiovascular function study; Z98.890 Other specified postprocedural states | CPT/HCPCS: 99212 ==

== ENCOUNTER → 2021-02-10 12:56 | Outpatient (BNVA) | payer MEDICARE, SELFPAY | PROVIDERS: PCP Internal Medicine; Visit Provider Nurse Practitioner Family | DX: Z01.810 Encounter for preprocedural cardiovascular examination (principal); I21.19 ST elevation (STEMI) myocardial infarction involving other coronary artery of inferior wall; I49.3 Ventricular premature depolarization; I45.10 Unspecified right bundle-branch block; I65.21 Occlusion and stenosis of right carotid artery; R93.1 Abnormal findings on diagnostic imaging of heart and coronary circulation; R94.39 Abnormal result of other cardiovascular function study; Z98.890 Other specified postprocedural states | CPT/HCPCS: 99212 ==

== ENCOUNTER → 2021-02-15 09:53 | Outpatient (BNVA) | payer MEDICARE, SELFPAY | PROVIDERS: PCP Internal Medicine; Visit Provider Surgery Vascular Surgery | DX: I65.21 Occlusion and stenosis of right carotid artery (principal) | CPT/HCPCS: 99212 ==

== ENCOUNTER 2021-02-22 | Outpatient (REF) | payer MEDICARE, SELFPAY ==
--- NOTE | ~2021-02-22 | XR_ITS ---
EXAMINATION: XR CHEST CLINICAL INFORMATION: Productive cough. Shortness of breath. COMPARISON: Previous chest x-rays most recent October 2020. Comparison is made with previous chest CT reports. Images not available for comparison. TECHNIQUE: 2 views of the chest were obtained. FINDINGS: The cardiac and mediastinal contours are stable. There may be left lateral pleural thickening. There is question of a peripheral or pleural-based left lung nodule measuring approximately 1 cm. This overlies the left posterior eighth rib. Review of CT reports indicate pleural thickening and calcified pleural plaques. It is possible this is related to calcified pleural plaque. The lungs are otherwise clear. There is no pleural effusion. There are degenerative changes of the spine. XR/XR chest 2V IMPRESSION: Question left lateral thickening and left peripheral or pleural-based nodule. This may be related to a calcified pleural plaque. This could be further evaluated with chest CT scan clinically indicated.
--- NOTE | 2021-02-22 12:44 | HO.ANESPROP2 ---
HPI - Anesthesia Eval Consult details Narrative: Per PAT nurse, pt decided to postpone surgery. 02/22 [facility]. Pt reports congested cough, increased fatigue. Denies febrile symptoms, but has not checked temp. (98.2 at [facility]) States has commented on how much he has been coughing. Lower lobes coarse with exp wheezing, L>R. Will obtain cxr. 81yo M for Right Carotid Endarterectomy s/p FLORENCIO 11/2020. 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) Stenosis of right internal carotid artery (Acute) Preop cardiovascular exam (Acute) Inferior myocardial infarction (Acute) Right bundle branch block (Acute) Abnormal echocardiogram (Acute) Past Medical History Medical History (Updated 02/22/21 @ 13:21 by Janet Fall) Abnormal echocardiogram Ambulates with cane Arthritis BPH (benign prostatic hyperplasia) Cerebrovascular accident COVID-19 vaccine series completed GUEVARA (dyspnea on exertion) Essential hypertension Hard of hearing History of acute inferior wall myocardial infarction Hyperlipidemia Low back pain Nasal congestion Near syncope Right bundle branch block Family History Family History Other CAD (coronary artery disease) Family history of problems with anesthesia: No Surgical History Surgical History (Updated 02/22/21 @ 13:00 by Janet Fall) H/O foot surgery H/O heart artery stent Previous back surgery S/P cardiac catheterization History of Problems with Anesthesia: No Social History Social History Household Members: Spouse Housing: House Are you a primary director of home care hospice to a significant other at home: No Do you presently have visiting nurse or other home services: No Alcohol intake: never Patient Tobacco Use Status: Former Tobacco user Quit Date: 2015 Tobacco use type: Cigarette Cigarette Packs Per Day: 1.5 Cigarettes Per Day: 30.0 Years Smoked: 60 Smoked in Last 30 Days: No Use of substances other than those prescribed or required for medical reasons: No Have you been hit, kicked, punched, or otherwise hurt by someone within the past year? If so, by whom?: No Spiritual Healthcare Practices: none Holiness Healthcare Practices: none Cultural Healthcare Practices: none Are you DNR?: No Advance Directives: No Advance Directives Information Provided: No Advance Directives on File: No Recently lost weight without trying: No Poor oral hygiene: No (full upper and lower dentures) service: Yes Current occupational status: retired Meds Allergies Allergy/AdvReac Type Severity Reaction Status Date / Time bee pollen [bee stings] Allergy Severe Anaphylaxis Verified 02/22/21 12:55 Home Medications Medication Instructions Recorded Confirmed Last Taken Type cholecalciferol (vitamin D3) 25 mcg PO DAILY 06/20/20 02/22/21 10/09/20 History [Vitamin D3] tamsulosin 0.4 mg PO BEDTIME 06/20/20 02/22/21 10/09/20 History cetirizine 10 mg capsule 10 mg PO BEDTIME PRN 11/19/20 02/22/21 Unknown History metoprolol succinate 25 mg 25 mg PO DAILY 02/10/21 02/22/21 Unknown History tablet,extended release 24 hr Epi E-Z Pen 02/22/21 Unknown History atorvastatin 80 mg PO BEDTIME 02/22/21 02/22/21 Unknown History latanoprost 1 drp OPHTHALMIC (EYE) BEDTIME 02/22/21 02/22/21 Unknown History Exam Exam Date and Time: February 22, 2021 1244 Narrative Narrative: Cardiac Cath 11/05/2020 shows ostial occlusion of the RCA, moderate mid LAD stenosis, severe mid left circumflex and OM1 stenosis with left to right collaterals to the RCA drug-eluting stent to the mid circumflex into OM1 NM ashlyn perf SPECT rest & str 10/2020 Impression: 1. Myocardial perfusion imaging study shows large area of infarcted myocardium, anterolateral and inferior inferolateral wall possibly ischemia of the lateral and basal anterolateral wall. 2. Gated LVEF is 39% with stress and 45% with stress 3. Transient ischemic dilatation present EKG is nondiagnostic for ischemia Echo 08/2020 Conclusions: - The calculated ejection fraction is 40% by biplane method. - There is evidence of regional wall motion abnormalities. - There is mild calcification of the aortic valve. - There is mild mitral annular calcification. Airway Mallampati Class: II TM Dist: >3cm Neck ROM: Full Denture: Upper and Lower Heart: RR Lungs: Lower lobes coarse with expiratory wheezes, L>R
[2021-02-22 13:04] VITALS: BP 121/58; PULSE 61; RESP 20; O2SAT 95; BMI 25.0
== END 2021-02-22 00:01 | disposition home or self-care (01) ==
LOC: HO.LAB
PROVIDERS: PCP Nurse Practitioner Family; Visit Provider Surgery Vascular Surgery
DX: Z01.810 Encounter for preprocedural cardiovascular examination (principal); I65.21 Occlusion and stenosis of right carotid artery; I49.3 Ventricular premature depolarization; I45.10 Unspecified right bundle-branch block; I21.9 Acute myocardial infarction, unspecified; Z87.891 Personal history of nicotine dependence; Z98.890 Other specified postprocedural states; Z91.030 Bee allergy status; Z79.899 Other long term (current) drug therapy
CPT/HCPCS: 71046; 86850; 86900; 86901

== ENCOUNTER → 2021-03-29 12:41 | Outpatient (BNVA) | payer MEDICARE, SELFPAY | PROVIDERS: PCP Nurse Practitioner Family; Referring Provider Nurse Practitioner Family; Visit Provider Nurse Practitioner Family | DX: Z01.810 Encounter for preprocedural cardiovascular examination (principal); I25.5 Ischemic cardiomyopathy; I45.10 Unspecified right bundle-branch block; I49.3 Ventricular premature depolarization; I65.21 Occlusion and stenosis of right carotid artery; R06.02 Shortness of breath; I25.2 Old myocardial infarction; Z79.899 Other long term (current) drug therapy | CPT/HCPCS: 99212 ==

== ENCOUNTER 2021-03-30 08:55 | Outpatient (REF) | payer MEDICARE, SELFPAY ==
--- NOTE | ~2021-03-30 | XR_ITS ---
EXAMINATION: XR CHEST CLINICAL INFORMATION: Shortness of breath COMPARISON: Previous chest x-rays most recent February 2021 TECHNIQUE: 2 views of the chest were obtained. FINDINGS: The cardiac and mediastinal contours are stable. There is question of left lateral pleural thickening and adjacent 1.3 cm nodule similar to February 2021 exam. The lungs are otherwise clear. There is no pleural effusion or pneumothorax. There are degenerative changes of the spine. XR/XR chest 2V IMPRESSION: Question left lateral pleural thickening and adjacent 1.3 cm left pulmonary nodule similar to February 2021 exam. This could be better evaluated with chest CT scan.
[2021-03-30 09:33] LABS: MANUAL DIFF FLAG NO
[2021-03-30 09:39] LABS: Basophils Percent Auto 0.6 % (0-2); Eosinophils Absolute Auto 0.4 X10*3/uL (0.0-0.4); Eosinophils Percent Auto 5.5 % (0-4); Hematocrit 41.2 % (42-52); Hemoglobin 13.6 g/dl (14.0-18.0); Imm Gran Abs Auto 0.01 X10*3/uL (0.00-0.03); Imm Gran Pct Auto 0.2 % (0.0-0.4); Lymphocytes Absolute Auto 1.3 X10*3/uL (1.2-4.9); Lymphocytes Percent Auto 20.1 % (20-40); Mean Corpuscular Hemoglobin 30.6 pg (27.0-33.0); Mean Corpuscular Volume 92.8 fL (80-98); Mean Platelet Volume 9.9 fL (9.4-12.4); Monocytes Absolute Auto 0.8 X10*3/uL (0.1-1.2); Monocytes Percent Auto 12.4 % (2-11); Neutrophils Percent Auto 61.2 % (45-73); Platelet Count 255 X10*3/uL (160-400); Red Blood Count 4.44 X10*6/uL (4.60-5.80); Red Cell Distribution Width 13.6 % (11.0-16.0); White Blood Count 6.5 X10*3/uL (4.8-10.8)
[2021-03-30 10:02] LABS: Alanine Aminotransferase 17 U/L (0-40); Anion Gap 8 (12-20); Aspartate Amino Transferase 20 U/L (5-37); Blood Urea Nitrogen 7 mg/dL (9-16); Calcium 9.1 mg/dL (8.4-10.2); Carbon Dioxide 29 mmol/L (22-29); Chloride 105 mmol/L (96-108); Estimated Glomerular Filt Rate > 60; Glucose Random 93 mg/dL (60-115); Potassium 4.8 mmol/L (3.3-5.1); Sodium 137 mmol/L (135-145)
[2021-03-30 10:03] LABS: B Type Natriuretic Peptide 245 pg/mL (<100)
== END 2021-03-30 08:56 | disposition home or self-care (01) ==
LOC: HO.LAB 08:55
PROVIDERS: PCP Nurse Practitioner Family; Visit Provider Nurse Practitioner Family
DX: Z01.810 Encounter for preprocedural cardiovascular examination (principal); I21.19 ST elevation (STEMI) myocardial infarction involving other coronary artery of inferior wall; R06.02 Shortness of breath; I25.5 Ischemic cardiomyopathy
CPT/HCPCS: 36415; 71046; 80048; 83880; 84450; 84460; 85025

== ENCOUNTER 2021-04-11 11:08 | Emergency (ER) | payer OTHER, MEDICARE, SELFPAY ==
[2021-04-11 11:14] VITALS: BP 136/52; PULSE 70; RESP 20; TEMP 36.9; O2SAT 95; BMI 24.3
--- NOTE | 2021-04-11 13:45 | ED.GENADULT ---
HPI - General Adult General Chief complaint: General Medical Stated complaint: VOMITING BLOOD Time Seen by Provider: 04/11/21 13:45 Source: patient and family Mode of arrival: ambulatory Limitations: no limitations History of Present Illness HPI narrative: 81-year-old male with past medical history of ischemic cardiomyopathy, PVCs, right carotid artery stenosis, inferior MA, right bundle-branch block is here today for complaining of coughing up blood. Patient reports that he had nose bleed 2 days ago. Patient states that he felt something in his left nostril and pulled and had nose bleed that was controlled after he put tissues. This morning he reports that he coughed and had small blood clot. Patient denies any SOB, respiratory distress, dyspepsia, dysphagia or odynophagia. Patient denies any throat pain or neck pain. No chest pain, syncope, presyncope, PND. He reports that he does not have any postnasal drainage or any nasal bleed. Onset (ago): hour(s) Relieving factors: none Exacerbating factors: none Associated symptoms: denies other symptoms Treatments prior to arrival: none Related Data Home Medications Medication Instructions Recorded Confirmed tamsulosin 0.4 mg capsule 0.4 mg PO BEDTIME 06/20/20 03/29/21 cetirizine 10 mg capsule 10 mg PO BEDTIME PRN 11/19/20 03/29/21 metoprolol succinate 25 mg 25 mg PO DAILY 02/10/21 03/29/21 tablet,extended release 24 hr Epi E-Z Pen 02/22/21 03/29/21 atorvastatin 80 mg tablet 80 mg PO BEDTIME 02/22/21 03/29/21 latanoprost 0.005 % eye drops 1 drp OPHTHALMIC (EYE) BEDTIME 02/22/21 03/29/21 Previous Rx's Medication Instructions Recorded aspirin 81 mg tablet,delayed 81 mg PO DAILY #90 tab 10/11/20 release lisinopril 5 mg tablet 5 mg PO DAILY #30 tab 10/27/20 clopidogrel 75 mg tablet (Plavix) 75 mg PO DAILY #90 tab 12/03/20 isosorbide mononitrate 30 mg 30 mg PO DAILY #90 tab 02/10/21 tablet,extended release 24 hr furosemide 20 mg tablet (Lasix) 20 mg PO DAILY #30 tab 03/31/21 Allergies Allergy/AdvReac Type Severity Reaction Status Date / Time bee pollen [bee stings] Allergy Severe Anaphylaxis Verified 03/29/21 13:27 Review of Systems Review of Systems: Constitutional : No Weight loss, No Fever, No Chills, No Night Sweats, No Fatigue, No Malaise ENT/Mouth : No Hearing loss, No Ear Pain, No Nasal Congestion, No Sinus Pain, No Hoarseness, No sore throat, No Rhinorrhea, No Swallowing Difficulty, nose bleed Eyes: No Eye Pain, No Swelling, No Redness, No Foreign Body, No Discharge, No Vision Changes Cardiovascular : No Chest Pain, No SOB, No Dyspnea on Exertion, No Orthopnea, No Edema, No Palpitations Respiratory : No Cough, No Sputum, No Wheezing, No Smoke Exposure, No Dyspnea Gastrointestinal : No Nausea, No Vomiting, No Diarrhea, No Constipation, No abdominal Pain, No Hematochezia, No Melena Genitourinary : no irregular bleeding, No Dysuria, No Urinary Frequency, No Hematuria, No Urinary Incontinence, No Urgency, No Flank Pain, No Urinary Flow Changes, No Hesitancy Musculoskeletal : No joint pain, No Myalgias, No Joint Swelling Skin : No Skin Lesions, No rash Neuro : No Weakness, No Numbness, No Paresthesias, No Loss of Consciousness, No Dizziness, No Headache Psych : No Anxiety/Panic, No Depression, No SI/HI/AH/VH, No Social Issues, Heme/Lymph: No Bruising, No Bleeding,No Lymphadenopathy Endocrine : No Polyuria, No Polydipsia, No Temperature Intolerance Yes all other systems are reviewed and are negative [facility] Past Medical History Medical History (Updated 04/11/21 @ 15:06 by Dorita Ascencio [facility]) Abnormal echocardiogram Ambulates with cane Arthritis BPH (benign prostatic hyperplasia) Cerebrovascular accident COVID-19 vaccine series completed GUEVARA (dyspnea on exertion) Essential hypertension Hard of hearing History of acute inferior wall myocardial infarction Hyperlipidemia Ischemic cardiomyopathy Low back pain Nasal congestion Near syncope Right bundle branch block Surgical History H/O foot surgery H/O heart artery stent Previous back surgery S/P cardiac catheterization Family History Family History Other CAD (coronary artery disease) Social History Social History Household Members: Spouse Housing: House Are you a primary daycare assistant to a significant other at home: No Do you presently have visiting nurse or other home services: No Alcohol intake: never Patient Tobacco Use Status: Former Tobacco user Quit Date: 2015 Tobacco use type: Cigarette Cigarette Packs Per Day: 1.5 Cigarettes Per Day: 30.0 Years Smoked: 60 Advance Directives: Yes Advance Directives Information Provided: Yes Advance Directives on File: No service: Yes Current occupational status: retired Physical Exam Vital Signs: Vital Signs: Last Vital Signs Temp 98.5 F 04/11/21 11:14 Pulse 70 04/11/21 11:14 Resp 20 04/11/21 11:14 BP 136/52 L 04/11/21 11:14 Pulse Ox 95 04/11/21 11:14 Body Mass Index 24.3 Const: General: healthy appearing, no acute distress and well developed Nutritional Appearance: well nourished Orientation/consciousness: patient oriented x3 HENMT: Head: Yes normal to inspection, Yes normocephalic and Yes atraumatic General nose exam: Normal external nose present, No nasal discharge present and Other nasal findings present (Dry blood no bleeding) Mouth: Normal oral and palatal mucosa present Throat: Yes posterior oropharynx normal and Yes other (No postnasal drip or blood) Eyes: General: appearance normal, both eyes and all related structures Neck: Neck: Yes normal visual inspection, Yes full ROM and Yes trachea midline Thyroid: Thyroid normal Resp: Auscultation: clear to auscultation bilaterally Cardio: Rate: regular rate Rhythm: regular rhythm GI: Inspection: Yes normal to inspection and No distended Palpation (GI): No hepatosplenomegaly present Auscultation: normal bowel sounds Skin: General skin exam: elasticity normal, turgor normal and dry skin Neuro: General: patient oriented x3 Course Course Course Narrative: 81-year-old male with past medical history of ischemic cardiomyopathy, SOB, PVC, right internal carotid artery stenosis, MA, here today for complaining of nose bleed that now.. The nosebleed started 2 days ago today patient coughed up small blood clot from the back of his throat. Will monitor him, do CBC and PT and INR. If no anemia and patient has no symptoms will send him home to follow-up with PCP. Discussed with patient the importance of keeping his nose moist and not to pick his nose. Suggested using saline nasal spray Reevaluation(s) Reevaluation #1: H&H 12.8 in 38.4 at baseline. PT and INR 14 and 1.2. Patient has no episodes of nose bleed, no postnasal drip or bleed. Patient was instructed to use in saline spray to moisten his nostrils. Patient was instructed to call his PCP in 2-3 days. He was instructed to return to emergency department if her symptoms will get worse or he will experience any additional concerning symptoms. Medical Decision Making Lab Data Result diagrams: 04/11/21 14:05 Labs: Lab Results 04/11/21 04/11/21 Range/Units 14:05 14:05 WBC 6.5 (4.8-10.8) X10*3/uL RBC 4.20 L (4.60-5.80) X10*6/uL Hgb 12.8 L (14.0-18.0) g/dl Hct 38.4 L (42-52) % MCV 91.4 (80-98) fL MCH 30.5 (27.0-33.0) pg MCHC 33.3 (31.0-36.0) g/dl RDW 13.2 (11.0-16.0) % Plt Count 252 (160-400) X10*3/uL MPV 9.5 (9.4-12.4) fL Immature Gran % (Auto) 0.3 (0.0-0.4) % Neut % (Auto) 61.9 (45-73) % Lymph % (Auto) 18.3 L (20-40) % Addison % (Auto) 12.1 H (2-11) % Eos % (Auto) 6.6 H (0-4) % Baso % (Auto) 0.8 (0-2) % Lymph # (Auto) 1.2 (1.2-4.9) X10*3/uL Addison # (Auto) 0.8 (0.1-1.2) X10*3/uL Eos # (Auto) 0.4 (0.0-0.4) X10*3/uL Baso # (Auto) 0.1 (0.0-0.2) X10*3/uL Abs Immat Gran (auto) 0.02 (0.00-0.03) X10*3/uL Absolute Neuts (auto) 4.0 (2.0-8.3) X10*3/uL Absolute Nucleated RBC 0.000 (0.0-0.012) X10*3/uL Nucleated RBC % (auto) 0.0 (0.0-0.2) /100WBC PT 14.0 H (9.9-13.0) SEC INR 1.2 H (0.9-1.1) Discharge Plan Discharge Clinical Impression: Hemorrhage from nose Patient Disposition: Home, Self-Care Instructions: Nosebleed (ED) Additional Instructions: You were seen here today after you had a nose bleed and then you cough. Small amount of blood. Please make sure that you keep your nose moist with saline nose drops. Now with the colder months come in please use humidifier at home. Your blood work today was normal. Please follow-up with your PCP in 2-3 days. You may return to emergency department if your symptoms will get worse or if you experience any additional concerning symptoms. Prescriptions: No Action lisinopril 5 mg tablet 5 mg PO DAILY Qty: 30 RF: 5 clopidogrel [Plavix] 75 mg tablet 75 mg PO DAILY Qty: 90 RF: 1 tamsulosin 0.4 mg Capsule 0.4 mg PO BEDTIME RF: 0 atorvastatin 80 mg Tablet 80 mg PO BEDTIME RF: 0 Epi E-Z Pen RF: 0 latanoprost 0.005 % drops 1 drp ophthalmic (eye) BEDTIME RF: 0 aspirin 81 mg Tablet,Delayed Release (Dr/Ec) 81 mg PO DAILY Qty: 90 RF: 1 cetirizine 10 mg capsule 10 mg PO BEDTIME PRN (Reason: Allergy Symptoms) RF: 0 furosemide [Lasix] 20 mg tablet 20 mg PO DAILY Qty: 30 RF: 0 metoprolol succinate 25 mg tablet extended release 24 hr 25 mg PO DAILY RF: 0 isosorbide mononitrate 30 mg tablet extended release 24 hr 30 mg PO DAILY Qty: 90 RF: 1 Interventions: ED Discharge Assessment Last Done: 04/11/21 15:10 Discharge Date/Time: 04/11/21 15:10
[2021-04-11 14:13] LABS: Basophils Absolute Auto 0.1 X10*3/uL (0.0-0.2); Basophils Percent Auto 0.8 % (0-2); Eosinophils Absolute Auto 0.4 X10*3/uL (0.0-0.4); Eosinophils Percent Auto 6.6 % (0-4); Hematocrit 38.4 % (42-52); Hemoglobin 12.8 g/dl (14.0-18.0); Imm Gran Abs Auto 0.02 X10*3/uL (0.00-0.03); Imm Gran Pct Auto 0.3 % (0.0-0.4); Lymphocytes Absolute Auto 1.2 X10*3/uL (1.2-4.9); Lymphocytes Percent Auto 18.3 % (20-40); MANUAL DIFF FLAG NO; Mean Corpuscular HGB Conc 33.3 g/dl (31.0-36.0); Mean Corpuscular Hemoglobin 30.5 pg (27.0-33.0); Mean Corpuscular Volume 91.4 fL (80-98); Mean Platelet Volume 9.5 fL (9.4-12.4); Monocytes Absolute Auto 0.8 X10*3/uL (0.1-1.2); Monocytes Percent Auto 12.1 % (2-11); Neutrophils Percent Auto 61.9 % (45-73); Platelet Count 252 X10*3/uL (160-400); Red Cell Distribution Width 13.2 % (11.0-16.0); White Blood Count 6.5 X10*3/uL (4.8-10.8)
[2021-04-11 14:18] LABS: INTERNATIONAL NORM RATIO 1.2 (0.9-1.1)
== END 2021-04-11 15:10 | disposition home or self-care (01) ==
PROVIDERS: Nurse Practitioner Family; Emergency Provider Emergency Medicine; PCP Nurse Practitioner Family
DX: R04.0 Epistaxis (principal); I10 Essential (primary) hypertension; E78.5 Hyperlipidemia, unspecified; Z86.73 Personal history of transient ischemic attack (TIA), and cerebral infarction without residual deficits; Z79.899 Other long term (current) drug therapy; Z79.02 Long term (current) use of antithrombotics/antiplatelets; Z79.82 Long term (current) use of aspirin
CPT/HCPCS: 36415; 85025; 85610; 99283

== ENCOUNTER → 2021-05-12 10:09 | Outpatient (REF) | payer OTHER, MEDICARE, SELFPAY ==
--- NOTE | 2021-05-12 10:22 | CA_ITS ---
Transthoracic Echocardiogram Patient (Last, First, Middle): Mikie Paul L Gender: Male Date of : 1940 Age: 81 Procedure Date: 05/12/2021 Procedure Type: Transthoracic Echocardiogram Location: OP Height: 175.26 cm Weight: 78.93 kg BSA: 1.95 m2 Heart Rate: bpm BP: 140 / 63 mmHg Forest Examiner: MEHRDAD Referring MD: Emilie Thompson BURRITO MAKERMichaelC Symptoms: I25.5 - Ischemic cardiomyopathy Study Quality: Fair ECG Rhythm: Sinus Conclusions: - The left ventricular systolic function is moderately decreased. The calculated ejection fraction is 35% by biplane method. LVEF by 3D volumetrics 37%. Findings Left Ventricle Mildly increased left ventricular cavity size. There is mildly increased left ventricular wall thickness. The left ventricular systolic function is moderately decreased. The calculated ejection fraction is 35% by biplane method. LVEF by 3D volumetrics 37%. Wall Motion Rest Echo Findings The apical inferior segment is hypokinetic. The inferolateral wall, the basal inferior, and mid inferior segments are akinetic. Prior Study Comparison No significant change compared to prior study dated: 12/23/2020. Measurements M-Mode Liner Measurements Normals - Women/Men LVIDd: 5.98 3.9-5.3/4.2-5.9 cm LVIDd Index: 3.07 1.9-3.2 cm/m2 LVIDs: 5.25 2.0-3.8 cm M-Mode Volumes LV EDV: 179.00 LV ESV: 132.00 2D Linear Measurements IVSd: 1.17 0.6-0.9/0.6-1.0 cm LVIDd: 5.93 3.9-5.3/4.2-5.9 cm LVIDd Index: 3.04 2.4-3.2/2.2-3.1 cm/m2 LVIDs: 4.94 2.0-3.6 cm LVPWd: 1.09 0.7-1.1 cm LV Mass: 354.46 67-162/88-224 g LV Mass Index: 181.77 43-95/49-115 g/m2 2D Systolic Function EF 4C: 43.10 >55% EF 2C: 31.30 >55% EF BiP: 34.80 >55% M-Mode Systolic Function FS: 12.20 27-47/25-43% LVEF: 26.30 >55% Mitral Valve MV Pk E: 0.83 MV PK A: 1.16 MV Decel Time: 257.00 E/A: 0.70 E'Lateral: 6.85 E'Medial: 5.33 E/E' Med: 15.50 E/E' Lat: 12.10 PHT: 75.00 MVA PHT: 2.93 Decel [place]: 3.22 Diastolic Function MV Pk E: 0.83 MV Pk A: 1.16 E/A: 0.70 E'Medial: 5.33 E/E' Med: 15.50 E' Laterial: 6.85 E/E' Lat: 12.10 Right Ventricle TAPSE (mm): 1.95 Updated in Other Vendor System with Status of Final Christopher Carmona MD electronically signed on 05/12/2021 12:20:52 PM with status of Final
== END ==
LOC: HO.CARD 10:09
PROVIDERS: PCP Nurse Practitioner Family; Visit Provider Nurse Practitioner Family
DX: I25.5 Ischemic cardiomyopathy (principal); R06.02 Shortness of breath
CPT/HCPCS: 93308

== ENCOUNTER 2021-05-25 09:55 | Emergency (ER) | payer OTHER, MEDICARE, SELFPAY ==
[2021-05-25 10:08] VITALS: BMI 23.6
[2021-05-25 10:10] VITALS: BP 161/68; PULSE 60; TEMP 36.6; O2SAT 94
--- NOTE | 2021-05-25 11:10 | ED_ITS ---
History of Present Illness General Chief Complaint: Epistaxis Stated Complaint: NOSEBLEED Time Seen by Provider: 05/25/21 11:10 Source: patient and family Mode of arrival: ambulatory Limitations: no limitations History of Present Illness Location: Yes left naris Onset/current episode: Yes hour(s) (8 am today) Duration: Yes now resolved Pertinent past history: Yes history of previous nose bleed Context: Yes history of previous nose bleed and Yes other (on aspirin and plavix) Treatment prior to arrival: Yes nose pinching Related Data Home Medications Medication Instructions Recorded Confirmed tamsulosin 0.4 mg capsule 0.4 mg PO BEDTIME 06/20/20 03/29/21 cetirizine 10 mg capsule 10 mg PO BEDTIME PRN 11/19/20 03/29/21 metoprolol succinate 25 mg 25 mg PO DAILY 02/10/21 03/29/21 tablet,extended release 24 hr Epi E-Z Pen 02/22/21 03/29/21 atorvastatin 80 mg tablet 80 mg PO BEDTIME 02/22/21 03/29/21 latanoprost 0.005 % eye drops 1 drp OPHTHALMIC (EYE) BEDTIME 02/22/21 03/29/21 Previous Rx's Medication Instructions Recorded aspirin 81 mg tablet,delayed 81 mg PO DAILY #90 tab 10/11/20 release lisinopril 5 mg tablet 5 mg PO DAILY #30 tab 10/27/20 clopidogrel 75 mg tablet (Plavix) 75 mg PO DAILY #90 tab 12/03/20 isosorbide mononitrate 30 mg 30 mg PO DAILY #90 tab 02/10/21 tablet,extended release 24 hr furosemide 20 mg tablet (Lasix) 20 mg PO DAILY #30 tab 03/31/21 Allergies Allergy/AdvReac Type Severity Reaction Status Date / Time bee pollen [bee stings] Allergy Severe Anaphylaxis Verified 03/29/21 13:27 Review of Systems Review of Systems: Constitutional : No Fever, No Chills ENT/Mouth : No Ear Pain, No Nasal Congestion, positive nose bleed Eyes: No Eye Pain, No Swelling, No Redness Cardiovascular : No Chest Pain, No SOB Respiratory : No Cough, No Sputum Gastrointestinal : No Nausea, No Vomiting, No Diarrhea Genitourinary : No Dysuria, No Hematuria Musculoskeletal : No joint pain, No Myalgias Skin : No Skin Lesions, No rash Neuro : No Weakness, No Numbness, No headache Psych : No Anxiety/Panic, No Depression [facility] Past Medical History Attestation statement: The following information was validated with the patient. Medical History Abnormal echocardiogram Ambulates with cane Arthritis BPH (benign prostatic hyperplasia) Cerebrovascular accident COVID-19 vaccine series completed GUEVARA (dyspnea on exertion) Essential hypertension Hard of hearing History of acute inferior wall myocardial infarction Hyperlipidemia Ischemic cardiomyopathy Low back pain Nasal congestion Near syncope Right bundle branch block Surgical History H/O foot surgery H/O heart artery stent Previous back surgery S/P cardiac catheterization Family History Family History Other CAD (coronary artery disease) Social History Social History Household Members: Spouse Housing: House Are you a primary respiratory care instructor to a significant other at home: No Do you presently have visiting nurse or other home services: No Alcohol intake: never Patient Tobacco Use Status: Former Tobacco user Quit Date: 2015 Tobacco use type: Cigarette Cigarette Packs Per Day: 1.5 Cigarettes Per Day: 30.0 Years Smoked: 60 Advance Directives: No service: Yes Current occupational status: retired Physical Exam Vital Signs: Vital Signs: Last Vital Signs Temp 97.8 F 05/25/21 10:10 Pulse 60 05/25/21 10:10 BP 161/68 H 05/25/21 10:10 Pulse Ox 94 05/25/21 10:10 Body Mass Index 23.6 Appearance: Alert. Oriented X3. No acute distress. Eyes: Pupils equal, round and reactive to light. ENT: Pharynx normal. L nares small area on anterior septum x 2 with slight oozing noted no blood in oropharynx Neck: Normal inspection. Neck supple. CVS: Normal heart rate and rhythm. Pulses normal. Respiratory: No respiratory distress. Breath sounds normal. Abdomen: Soft and nontender. Skin: Skin warm and dry. Normal skin color. Normal skin turgor. Extremities: No lower extremity edema. No calf ttp Neuro: Oriented X 3. No motor deficit. No sensory deficit. MDM - Epistaxis MDM Narrative Medical decision making narrative: 81 yo male on ASA/plavix here with resolved L anterior epistaxis - no CP/SOB dizziness, I can see the two areas on his septum that are slightly oozing - will obtain CBC and cauterize Lab Data Result diagrams: 05/25/21 11:16 Labs: Lab Results 05/25/21 Range/Units 11:16 WBC 7.1 (4.8-10.8) X10*3/uL RBC 3.84 L (4.60-5.80) X10*6/uL Hgb 11.9 L (14.0-18.0) g/dl Hct 35.4 L (42-52) % MCV 92.2 (80-98) fL MCH 31.0 (27.0-33.0) pg MCHC 33.6 (31.0-36.0) g/dl RDW 13.3 (11.0-16.0) % Plt Count 225 (160-400) X10*3/uL MPV 9.6 (9.4-12.4) fL Absolute Nucleated RBC 0.000 (0.0-0.012) X10*3/uL Nucleated RBC % (auto) 0.0 (0.0-0.2) /100WBC Procedures Epistaxis Control Time Out Performed: Yes Nostril: Yes left Nose prepped with: Yes oxymetazoline Direct inspection: Yes anterior source identified Direct inspection method: Yes nasal rhinoscope Epistaxis treatment: Yes silver nitrate cautery Results of treatment: Yes bleeding controlled Complications: Yes none Discharge Plan Discharge Clinical Impression: Epistaxis Patient Disposition: Home, Self-Care Instructions: Nosebleed (ED) Additional Instructions: return to ED for any worsening symptoms or concerns no nose blowing for 3 days, use saline spray for 2 days if it bleeds pinch and hold pressure Prescriptions: No Action lisinopril 5 mg tablet 5 mg PO DAILY Qty: 30 RF: 5 clopidogrel [Plavix] 75 mg tablet 75 mg PO DAILY Qty: 90 RF: 1 tamsulosin 0.4 mg Capsule 0.4 mg PO BEDTIME RF: 0 atorvastatin 80 mg Tablet 80 mg PO BEDTIME RF: 0 Epi E-Z Pen RF: 0 latanoprost 0.005 % drops 1 drp ophthalmic (eye) BEDTIME RF: 0 aspirin 81 mg Tablet,Delayed Release (Dr/Ec) 81 mg PO DAILY Qty: 90 RF: 1 cetirizine 10 mg capsule 10 mg PO BEDTIME PRN (Reason: Allergy Symptoms) RF: 0 furosemide [Lasix] 20 mg tablet 20 mg PO DAILY Qty: 30 RF: 0 metoprolol succinate 25 mg tablet extended release 24 hr 25 mg PO DAILY RF: 0 isosorbide mononitrate 30 mg tablet extended release 24 hr 30 mg PO DAILY Qty: 90 RF: 1
[2021-05-25] MEDS: Silver Nitrate Applicator STICK..EA. 1 APPL TOPICAL (11:21)
[2021-05-25] MEDS: Oxymetazoline HCl 0.05 % Nasal 15 ML SPRAY 2 SPRAY NOSTRIL-B (11:21)
[2021-05-25 11:25] LABS: Hematocrit 35.4 % (42-52); Hemoglobin 11.9 g/dl (14.0-18.0); Mean Corpuscular HGB Conc 33.6 g/dl (31.0-36.0); Mean Corpuscular Volume 92.2 fL (80-98); Mean Platelet Volume 9.6 fL (9.4-12.4); Platelet Count 225 X10*3/uL (160-400); Red Blood Count 3.84 X10*6/uL (4.60-5.80); Red Cell Distribution Width 13.3 % (11.0-16.0); White Blood Count 7.1 X10*3/uL (4.8-10.8)
== END 2021-05-25 12:14 | disposition home or self-care (01) ==
PROVIDERS: Emergency Provider Emergency Medicine; PCP Nurse Practitioner Family
DX: R04.0 Epistaxis (principal); I10 Essential (primary) hypertension; Z86.73 Personal history of transient ischemic attack (TIA), and cerebral infarction without residual deficits; Z79.02 Long term (current) use of antithrombotics/antiplatelets; Z79.82 Long term (current) use of aspirin
CPT/HCPCS: 30901; 36415; 85027; 99283; 99284

== ENCOUNTER → 2021-06-27 12:12 | Outpatient (BNVA) | payer MEDICARE, OTHER, SELFPAY | PROVIDERS: PCP Nurse Practitioner Family; Referring Provider Nurse Practitioner Family; Visit Provider Internal Medicine | DX: Z01.810 Encounter for preprocedural cardiovascular examination (principal); I25.5 Ischemic cardiomyopathy; I25.10 Atherosclerotic heart disease of native coronary artery without angina pectoris; I65.21 Occlusion and stenosis of right carotid artery | CPT/HCPCS: 99212 ==

== ENCOUNTER → 2021-07-12 13:34 | Outpatient (BNVA) | payer MEDICARE, OTHER, SELFPAY | PROVIDERS: PCP Nurse Practitioner Family; Visit Provider Surgery Vascular Surgery | DX: J44.9 Chronic obstructive pulmonary disease, unspecified (principal); I65.21 Occlusion and stenosis of right carotid artery; Z87.891 Personal history of nicotine dependence | CPT/HCPCS: 99202; 99212 ==

== ENCOUNTER 2021-07-18 06:05 | Inpatient (IN) | payer MEDICARE, SELFPAY ==
--- NOTE | 2021-07-12 | ECG_ITS ---
Test Reason : PREOP Blood Pressure : / mmHG Vent. Rate : 068 BPM Atrial Rate : 068 BPM P-R Int : 182 ms QRS Dur : 140 ms QT Int : 448 ms P-R-T Axes : 053 072 -20 degrees QTc Int : 476 ms Sinus rhythm with occasional Premature ventricular complexes Intra-ventricular conduction delay Inferior infarct (cited on or before 24-NOV-2016) Abnormal ECG When compared with ECG of 10-OCT-2020 05:39, Premature ventricular complexes are now Present Referred By: Afua Pineda Electronically Signed By:Juan C Sims
[2021-07-12 11:49] VITALS: BP 178/80; PULSE 60; RESP 20; O2SAT 97; BMI 25.4
--- NOTE | 2021-07-12 12:41 | HO.ANESPROP2 ---
Documented by User: Afua Pineda NP 07/15/21 11:05 HPI - Anesthesia Eval Consult details Narrative: 81yo M for Right Carotid Endarterectomy s/p FLORENCIO 11/2020. On DAPT Cardiac cleared at [facility] to high risk 06/2021: Cardiac and vascular studies reviewed.? In the most recent echocardiogram, LVEF was about 35%.? Wall motion abnormalities related to underlying coronary disease with inferior akinesis.? Myocardial perfusion imaging study with large area of infarcted myocardium in the anterolateral, inferior, inferolateral wall with ischemia in the lateral and basal anterolateral wall.? Cardiac catheterization data reviewed.? He had ostial occlusion or coronary artery.? Moderate mid LAD disease.? Severe mid circumflex and OM1 stenosis with [id number] collaterals to RCA.? Status post drug-eluting stent to the mid circumflex. Overall, he has significant coronary disease as well as ischemic cardiomyopathy but otherwise reasonably stable.? Discussed about cardiac perioperative concerns including perioperative myocardial infarction.? He understands.? Cardiac risk in this setting will be intermediate to high.? Recommend continuing dual antiplatelet therapy without any interruption otherwise continue beta-blockers, nitrates and statins. 02/22 PAT. Pt reports congested cough, increased fatigue. Pt cx'd self prior to DOS 07/12 PAT. Pt with nasal congestion. continues with congested cough and expiratory wheezes in the lower lobes. 60pyh. Does not follow with pulmonary. Repeat CXR. Pulmo clearance requested. 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) Stenosis of right internal carotid artery (Acute) Preop cardiovascular exam (Acute) Inferior myocardial infarction (Acute) Abnormal nuclear stress test (Acute) Carotid stenosis, right (Acute) SOB (shortness of breath) (Acute) Atherosclerotic cardiovascular disease (Acute) Ischemic cardiomyopathy (Acute) S/P cardiac catheterization (Acute) Right bundle branch block (Acute) Abnormal echocardiogram (Acute) Past Medical History Medical History Abnormal echocardiogram Ambulates with cane Arthritis BPH (benign prostatic hyperplasia) Cerebrovascular accident COPD (chronic obstructive pulmonary disease) COVID-19 vaccine series completed GUEVARA (dyspnea on exertion) Essential hypertension Hard of hearing History of acute inferior wall myocardial infarction History of smoking at least 1 pack per day for at least 30 years Hyperlipidemia Ischemic cardiomyopathy Low back pain Nasal congestion Near syncope Right bundle branch block Family History Family History Other CAD (coronary artery disease) Family history of problems with anesthesia: No Surgical History Surgical History H/O foot surgery H/O heart artery stent Previous back surgery S/P cardiac catheterization History of Problems with Anesthesia: No Social History Social History Household Members: Spouse Housing: House Are you a primary care asst to a significant other at home: No Do you presently have visiting nurse or other home services: No Alcohol intake: never Patient Tobacco Use Status: Former Tobacco user Quit Date: 2015 Tobacco use type: Cigarette Cigarette Packs Per Day: 1.5 Cigarettes Per Day: 30.0 Years Smoked: 60 Use of substances other than those prescribed or required for medical reasons: No Have you been hit, kicked, punched, or otherwise hurt by someone within the past year? If so, by whom?: No Are you DNR?: No Advance Directives: No (will bring dos) Advance Directives on File: No Recently lost weight without trying: No Poor oral hygiene: No (full upper and lower) service: Yes Current occupational status: retired Meds Allergies Allergy/AdvReac Type Severity Reaction Status Date / Time bee pollen [bee stings] Allergy Severe Anaphylaxis Verified 07/18/21 07:12 Home Medications Medication Instructions Recorded Confirmed Last Taken Type tamsulosin 0.4 mg capsule 0.4 mg PO BEDTIME 06/20/20 07/12/21 10/09/20 History cetirizine 10 mg capsule 10 mg PO BEDTIME PRN 11/19/20 07/12/21 Unknown History metoprolol succinate 25 mg 25 mg PO DAILY 02/10/21 07/12/21 07/18/21 05:15 History tablet,extended release 24 hr Epi E-Z Pen 02/22/21 06/27/21 Unknown History atorvastatin 80 mg tablet 80 mg PO BEDTIME 02/22/21 07/12/21 Unknown History latanoprost 0.005 % eye drops 1 drp OPHTHALMIC (EYE) BEDTIME 02/22/21 07/12/21 Unknown History Exam Exam Date and Time: July 12, 2021 1241 Height,Weight and Vital Signs: Height 5 ft 10 in Weight 80.5 kg Last Vital Signs Pulse 60 07/12/21 11:49 Resp 20 07/12/21 11:49 BP 178/80 H 07/12/21 11:49 Pulse Ox 97 07/12/21 11:49 Pertinent Lab Results Pertinent Lab Results: Lab Results 07/14/21 07/14/21 07/14/21 Range/Units 10:44 10:44 10:44 WBC 6.8 (4.8-10.8) X10*3/uL RBC 4.44 L (4.60-5.80) X10*6/uL Hgb 13.7 L (14.0-18.0) g/dl Hct 41.5 L (42.0-52.0) % MCV 93.5 (80.0-98.0) fL MCH 30.9 (27.0-33.0) pg MCHC 33.0 (31.0-36.0) g/dl RDW 13.2 (11.0-16.0) % Plt Count 245 (160-400) X10*3/uL MPV 10.2 (9.4-12.4) fL Absolute Nucleated RBC 0.000 (0.0-0.012) X10*3/uL Nucleated RBC % (auto) 0.0 (0.0-0.2) /100WBC PT 13.1 H (9.9-13.0) SEC INR 1.2 H (0.9-1.1) APTT 29.5 (24.1-38.0) SEC Sodium 139 (135-145) mmol/L Potassium 4.2 (3.3-5.1) mmol/L Chloride 106 (96-108) mmol/L Carbon Dioxide 27 (22-29) mmol/L Anion Gap 10 L (12-20) BUN 9 (9-16) mg/dL Creatinine 1.12 (0.5-1.4) mg/dL Estim Creat Clear Calc 51.5 Estimated GFR > 60 Random Glucose 84 (60-115) mg/dL Calcium 9.1 (8.4-10.2) mg/dL Narrative Narrative: XR chest 2V 02/2021 (Repeat pending 07/2021) IMPRESSION: Question left lateral thickening and left peripheral or pleural-based nodule. This may be related to a calcified pleural plaque. This could be further evaluated with chest CT scan clinically indicated. Cardiac Cath 11/05/2020 shows ostial occlusion of the RCA, moderate mid LAD stenosis, severe mid left circumflex and OM1 stenosis with left to right collaterals to the RCA drug-eluting stent to the mid circumflex into OM1 NM ashlyn perf SPECT rest & str 10/2020 Impression: ? 1.? Myocardial perfusion imaging study shows large area of infarcted myocardium, anterolateral and inferior inferolateral wall possibly ischemia of the lateral and basal anterolateral wall. 2.? Gated LVEF is 39% with stress and 45% with stress 3. Transient ischemic dilatation present ? EKG is nondiagnostic for ischemia Echo 03/2021 Conclusions: - The left ventricular systolic function is moderately decreased. The calculated ejection fraction is 35% by biplane method.? LVEF by 3D volumetrics 37%. ?? Echo 08/2020 Conclusions: - The calculated ejection fraction is 40% by biplane method.? ? - There is evidence of regional wall motion abnormalities.? ? ? - There is mild calcification of the aortic valve.? - There is mild mitral annular calcification. ?? Airway Mallampati Class: II TM Dist: >3cm Neck ROM: Full Denture: Upper and Lower Heart: RR Lungs: Lower lobes coarse with expiratory wheezes, L>R Assessment and Plan Assessment Anesthesia Assessment: Anesthesia Plan Discussed and PAT Visit Final Anesthetic Review Family History of Problems with Anesthesia: No History of Problems with Anesthesia: No Documented by User: Serjio Tejeda MD 07/18/21 07:23 [facility] Past Medical History Medical History Abnormal echocardiogram Ambulates with cane Arthritis BPH (benign prostatic hyperplasia) Cerebrovascular accident COPD (chronic obstructive pulmonary disease) COVID-19 vaccine series completed GUEVARA (dyspnea on exertion) Essential hypertension Hard of hearing History of acute inferior wall myocardial infarction History of smoking at least 1 pack per day for at least 30 years Hyperlipidemia Ischemic cardiomyopathy Low back pain Nasal congestion Near syncope Right bundle branch block Family History Family History Other CAD (coronary artery disease) Surgical History Surgical History H/O foot surgery H/O heart artery stent Previous back surgery S/P cardiac catheterization Social History Social History Household Members: Spouse Housing: House Are you a primary care asst to a significant other at home: No Do you presently have visiting nurse or other home services: No Alcohol intake: never Patient Tobacco Use Status: Former Tobacco user Quit Date: 2015 Tobacco use type: Cigarette Cigarette Packs Per Day: 1.5 Cigarettes Per Day: 30.0 Years Smoked: 60 Use of substances other than those prescribed or required for medical reasons: No Have you been hit, kicked, punched, or otherwise hurt by someone within the past year? If so, by whom?: No Are you DNR?: No Advance Directives: No (will bring dos) Advance Directives on File: No Recently lost weight without trying: No Poor oral hygiene: No (full upper and lower) service: Yes Current occupational status: retired [employer] Allergies Allergy/AdvReac Type Severity Reaction Status Date / Time bee pollen [bee stings] Allergy Severe Anaphylaxis Verified 07/18/21 07:12 Home Medications Medication Instructions Recorded Confirmed Last Taken Type tamsulosin 0.4 mg capsule 0.4 mg PO BEDTIME 06/20/20 07/12/21 10/09/20 History cetirizine 10 mg capsule 10 mg PO BEDTIME PRN 11/19/20 07/12/21 Unknown History metoprolol succinate 25 mg 25 mg PO DAILY 02/10/21 07/12/21 07/18/21 05:15 History tablet,extended release 24 hr Epi E-Z Pen 02/22/21 06/27/21 Unknown History atorvastatin 80 mg tablet 80 mg PO BEDTIME 02/22/21 07/12/21 Unknown History latanoprost 0.005 % eye drops 1 drp OPHTHALMIC (EYE) BEDTIME 02/22/21 07/12/21 Unknown History Assessment and Plan Final Anesthetic Review NPO: Yes ASA Class: IV Final Preanesthetic Review: No Changes in Pt Med Stat, Meds/Allgs Chart Reviewed, Consent Obtained/Reviewed and Anes Risks/Benef Reviewed Patient Risk: High Procedure Risk: High Anesthetic Plan Anesthetic Plan: GA Disposition: Standard PACU and Inp. Admit - ICU
[2021-07-14 11:14] LABS: Hematocrit 41.5 % (42.0-52.0); Hemoglobin 13.7 g/dl (14.0-18.0); Mean Corpuscular Hemoglobin 30.9 pg (27.0-33.0); Mean Corpuscular Volume 93.5 fL (80.0-98.0); Mean Platelet Volume 10.2 fL (9.4-12.4); Platelet Count 245 X10*3/uL (160-400); Red Blood Count 4.44 X10*6/uL (4.60-5.80); Red Cell Distribution Width 13.2 % (11.0-16.0); White Blood Count 6.8 X10*3/uL (4.8-10.8)
[2021-07-14 11:20] LABS: INTERNATIONAL NORM RATIO 1.2 (0.9-1.1); Prothrombin Time 13.1 SEC (9.9-13.0)
[2021-07-14 11:22] LABS: Partial Thromboplastin Time 29.5 SEC (24.1-38.0)
[2021-07-14 11:51] LABS: Anion Gap 10 (12-20); Blood Urea Nitrogen 9 mg/dL (9-16); Calcium 9.1 mg/dL (8.4-10.2); Carbon Dioxide 27 mmol/L (22-29); Chloride 106 mmol/L (96-108); Creatinine Clr Calc Pharmacy 51.5; Estimated Glomerular Filt Rate > 60; Glucose Random 84 mg/dL (60-115); Potassium 4.2 mmol/L (3.3-5.1); Sodium 139 mmol/L (135-145)
[2021-07-18] VITALS (27 sets, daily range): BP systolic 86–183; BP diastolic 40–79; PULSE 55–114; RESP 16–35; TEMP 36.1–36.9; O2SAT 91–100
--- NOTE | ~2021-07-18 | XR_ITS ---
EXAMINATION: XR CHEST CLINICAL INFORMATION: Cough and wheeze COMPARISON: 03/30/2021 TECHNIQUE: 2 views of the chest were obtained. FINDINGS: The lungs are well expanded. Redemonstration of a 1.2 cm nodular density overlying the periphery of the left midlung. This is similar to prior. No new consolidation. No edema. No effusion. No pneumothorax. The cardiomediastinal silhouette is unchanged. Degenerative changes throughout the spine. DISH. XR/XR chest 2V IMPRESSION: No acute pulmonary finding.
[2021-07-18 06:42] LABS: Hematocrit 38.7 % (42.0-52.0); Hemoglobin 12.5 g/dl (14.0-18.0); Mean Corpuscular HGB Conc 32.3 g/dl (31.0-36.0); Mean Corpuscular Hemoglobin 30.1 pg (27.0-33.0); Mean Corpuscular Volume 93.3 fL (80.0-98.0); Mean Platelet Volume 10.1 fL (9.4-12.4); Platelet Count 230 X10*3/uL (160-400); Red Blood Count 4.15 X10*6/uL (4.60-5.80); Red Cell Distribution Width 13.3 % (11.0-16.0); White Blood Count 9.4 X10*3/uL (4.8-10.8)
[2021-07-18 06:54] LABS: Anion Gap 9 (12-20); Blood Urea Nitrogen 9 mg/dL (9-16); Calcium 8.8 mg/dL (8.4-10.2); Carbon Dioxide 27 mmol/L (22-29); Chloride 108 mmol/L (96-108); Creatinine Clr Calc Pharmacy 51.5; Estimated Glomerular Filt Rate > 60; Glucose Random 95 mg/dL (60-115); INTERNATIONAL NORM RATIO 1.2 (0.9-1.1); Potassium 4.3 mmol/L (3.3-5.1); Prothrombin Time 13.3 SEC (9.9-13.0); Sodium 140 mmol/L (135-145)
[2021-07-18 06:57] LABS: Partial Thromboplastin Time 28.9 SEC (24.1-38.0)
[2021-07-18 06:58] LABS: COVID-19 Test Negative (Negative); IDNOW Serial# 9DD0AD1C
[2021-07-18] MEDS: Lactated Ringers 1,000 ML 50 ML IVCONT ×2 (07:15→16:01)
--- NOTE | 2021-07-18 10:09 | MHC.SHP ---
Pre-Procedural Eval Section A Date of Service: 07/18/21 The patient is an INPATIENT: No The History & Physical has been completed within 30 days and I have reviewed it.: Yes Section B Chief Complaint: occlusion and stenosis of right carotid artery Allergies: Allergies Allergy/AdvReac Type Severity Reaction Status Date / Time bee pollen [bee stings] Allergy Severe Anaphylaxis Verified 07/18/21 07:12 Plan I have reviewed the history and physical and performed a pertinent physical examination on my patient. No changes have occurred unless specified.
[2021-07-18] MEDS: DOPamine HCL/D5W 400 MG/250 ML PLAST..BAG 15.09 MG IVCONT (10:25)
--- NOTE | 2021-07-18 10:34 | W.PM.OPN ---
Operative Note Operative Note Date of Service: 07/18/21 Narrative: Operative note by [facility] Preoperative diagnosis: Right carotid stenosis Postoperative diagnosis: Same Procedure: Right carotid endarterectomy Surgeon:Loc Cabrera M.D. Substance Abuse Prevention Coordinator: Dr. Montano Anesthesia: General Specimens: 1 Drains: 1 Estimated blood loss: 100 mL Indications: 81-year-old gentleman with high-grade right carotid stenosis now presents for right carotid endarterectomy. The patient has signed the informed consent after reviewing risks, complications, benefits, and alternatives previously discussed with the patient. The patient was given the opportunity to ask any additional questions or voice any concerns. All questions were answered to the patient's satisfaction. Procedure in detail: Patient was brought to the operating room prior to which a time-out was called for patient identification and site verification. Right neck was prepped and draped in standard surgical fashion. Incision was carried out over the anterior border of the sternocleidomastoid in approximately 1 finger breath below the jaw line. We dissected down through the fascia down through into the carotid sheath. We ligated the facial branch of the internal jugular. Once this was accomplished we were able to dissect out the common carotid internal carotid and external carotid. At this time 5000 units of systemic heparin was administered. A we isolated out the vessels with silastic loops. After 5 minutes of circulation time we clamped the arteries in the following fashion external carotid, common carotid, internal carotid. Once this was accomplished arteriotomy was made from the common carotid to the internal carotid. We then placed a [place] 8 Indonesian shunt. Once this was done and flow was reestablished we then performed an endarterectomy. We were able to obtain good clean tapered ends. Once this was all completed we then sutured on a XenoSure patch with a 6 0 Prolene. This was done in a circumferential manner. Prior to closure the shunt was removed. It was flushed clean. We then closed the vessel. Flow was reestablished with opening the external, common, internal carotid in that order. Two interrupted bleeding points had to be closed with a 7 0 Prolene suture. Adequate hemostasis was achieved. Seven flat Wander-Archuleta drain was placed. Deep layer was reapproximated using 2 0 poly Sorb superficial layer with 3-0 poly Sorb and finally skin with a 4-0 Monocryl. At the end the case sponge instrument counts were correct. Patient tolerated the procedure well. Returned to recovery with stable vitals and neurologically intact. This note is constructed using voice recognition software. While every effort has been made to ensure accuracy, refinery operator assistant errors may have been included. Thank you for allowing me to participate in the care of your patient. Yours sincerely, Loc Cabrera MD, FACS, R.P.V.I.
[2021-07-18] MEDS: HYDROmorphone HCl 0.5 MG/0.5 ML SYRINGE 0.25 MG IVPUSH (11:08)
--- NOTE | 2021-07-18 15:03 | P.CONCC_ITS ---
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 with [id number] collaterals from the circumflex and the circumflex had a critical stenosis of 85-90% positive flow restriction on a flow wire exam and status post stent which is drug alluding and there was moderate and diffuse disease of the LAD and of the left main but noncritical low normal ejection fraction at about 50% Review of Systems Review of Systems: no further transient ischemic episodes no chest discomfort or shortness of breath not with exertion not with recumbency and certainly not within the last few weeks prior to the surgery PMFSH Past Medical History Medical History (Updated 07/18/21 @ 15:37 by Nimisha Case MD) Abnormal echocardiogram Ambulates with cane Arthritis BPH (benign prostatic hyperplasia) Cerebrovascular accident COPD (chronic obstructive pulmonary disease) COVID-19 vaccine series completed CVA (cerebrovascular accident) GUEVARA (dyspnea on exertion) Essential hypertension Hard of hearing History of acute inferior wall myocardial infarction History of smoking at least 1 pack per day for at least 30 years Hyperlipidemia Ischemic cardiomyopathy Low back pain Nasal congestion Near syncope Right bundle branch block Family History Family History Other CAD (coronary artery disease) Surgical History Surgical History H/O foot surgery H/O heart artery stent Previous back surgery S/P cardiac catheterization Social History Social History Household Members: Spouse Housing: House Are you a primary sub acute care nurse to a significant other at home: No Do you presently have visiting nurse or other home services: No Alcohol intake: never Patient Tobacco Use Status: Former Tobacco user Quit Date: 2015 Tobacco use type: Cigarette Cigarette Packs Per Day: 1.5 Cigarettes Per Day: 30.0 Years Smoked: 60 Use of substances other than those prescribed or required for medical reasons: No Have you been hit, kicked, punched, or otherwise hurt by someone within the past year? If so, by whom?: No Are you DNR?: No Advance Directives: No (will bring dos) Advance Directives on File: No Recently lost weight without trying: No Poor oral hygiene: No (full upper and lower) service: Yes Current occupational status: retired Meds Allergies Allergy/AdvReac Type Severity Reaction Status Date / Time bee pollen [bee stings] Allergy Severe Anaphylaxis Verified 07/18/21 07:12 Active Medications: Current Medications Acetaminophen (Acetaminophen 325 Mg Tablet) 650 mg PO Q6H PRN PRN Reason: Pain, Mild (Pain Scale 1-3) Fentanyl (Fentanyl Citrate/Pf 100 Mcg/2 Ml Vial) 25 mcg IVPUSH Q5M PRN; Protocol PRN Reason: Pain, Moderate (Pain Scale 4-6 Hydromorphone HCl (Hydromorphone Hcl 0.5 Mg/0.5 Ml Syringe) 0.25 mg IVPUSH Q5M PRN; Protocol PRN Reason: Pain, Severe (Pain Scale 7-10) Last Admin: 07/18/21 11:08 Dose: 0.25 mg Documented by: Lactated Ringer's (Lr) 1,000 mls @ 50 mls/hr IVCONT .Q20H MARCELLA Last Admin: 07/18/21 07:15 Dose: 50 mls/hr Documented by: Acetaminophen (Ofirmev) 1,000 mg in 100 mls @ 400 mls/hr IV ONCE PRN PRN Reason: Pain, Mild (Pain Scale 1-3) Sodium Chloride (Ns) 1,000 mls @ 80 mls/hr IVCONT .[id number] MARCELLA Dopamine HCl/Dextrose () 400 mg in 250 mls @ 0 mls/hr IVCONT .Q0M MARCELLA; Protocol Last Titration: 07/18/21 10:35 Dose: 10 mcg/kg/min, 30.19 mls/hr Documented by: Morphine Sulfate (Morphine Sulfate 2 Mg/Ml Cartridge) 2 mg IVPUSH Q4H PRN; Prot ocol PRN Reason: Pain, Severe (Pain Scale 7-10) Oxycodone HCl (Oxycodone Hcl Immed Release 5 Mg Tablet) 5 mg PO Q4H PRN PRN Reason: Pain, Moderate (Pain Scale 4-6 Sodium Chloride (0.9 % Sodium Chloride Flush 3 Ml Syringe) 3 [facility] Medications Medication Instructions Recorded Confirmed Last Taken Type tamsulosin 0.4 mg capsule 0.4 mg PO BEDTIME 06/20/20 07/12/21 10/09/20 History cetirizine 10 mg capsule 10 mg PO BEDTIME PRN 11/19/20 07/12/21 Unknown History metoprolol succinate 25 mg 25 mg PO DAILY 02/10/21 07/12/21 07/18/21 05:15 History tablet,extended release 24 hr Epi E-Z Pen 02/22/21 06/27/21 Unknown History atorvastatin 80 mg tablet 80 mg PO BEDTIME 02/22/21 07/12/21 Unknown History latanoprost 0.005 % eye drops 1 drp OPHTHALMIC (EYE) BEDTIME 02/22/21 07/12/21 Unknown History Physical Exam Vital Signs: Vital Signs: Last Vital Signs Temp 97.2 F 07/18/21 12:19 Pulse 66 07/18/21 12:50 Resp 18 07/18/21 12:50 BP 140/53 H 07/18/21 12:50 Pulse Ox 99 07/18/21 12:50 BMI result Body Mass Index 25.4 awake and appropriate and nonfocal neurologically cardiac exam with adequate bilateral carotid upstrokes and no gallops chest with reduced breath sounds bilaterally no accessory muscle use no adventitio us sounds abdomen benign no organomegaly skin intact Results Labs CBC & Chem 7: 07/18/21 06:29 07/18/21 06:29 Labs: Short CBC 07/18/21 Range/Units 06:29 WBC 9.4 (4.8-10.8) X10*3/uL Hgb 12.5 L (14.0-18.0) g/dl Hct 38.7 L (42.0-52.0) % Plt Count 230 (160-400) X10*3/uL [facility] 07/18/21 06:29 Sodium 140 Potassium 4.3 Chloride 108 Carbon Dioxide 27 BUN 9 Creatinine 1.12 Calcium 8.8 Assessment and Plan (1) COPD (chronic obstructive pulmonary disease): Status: Acute (2) History of smoking at least 1 pack per day for at least 30 years: Status: Acute (3) 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: Status: Acute (4) Stenosis of right internal carotid artery: Status: Acute (5) Inferior myocardial infarction: Status: Acute (6) Abnormal nuclear stress test: Status: Acute (7) Carotid stenosis, right: Status: Acute (8) SOB (shortness of breath): Status: Acute (9) Ischemic cardiomyopathy: Status: Acute (10) S/P cardiac catheterization: Status: Acute (11) Right bundle branch block: Status: Acute at this point were monitoring blood pressure via his arterial line and will only treat excess is greater than 150-155 but my biggest concern is a 7-month-old drug-eluting stent and and he has been off both aspirin and Plavix and I am going to inquire as to when I can restart dose stent protective medications
[2021-07-18] MEDS: Aspirin 81 MG TAB.CHEW 162 MG PO (17:31)
[2021-07-18] MEDS: Clopidogrel Bisulfate 75 MG TABLET PO (17:31)
[2021-07-18] MEDS: 0.9 % Sodium Chloride Flush 3 ML SYRINGE IVFLUSH (17:31)
[2021-07-18] MEDS: DOPamine HCL/D5W 400 MG/250 ML PLAST..BAG 30.19 MG IVCONT (18:17)
[2021-07-18] MEDS: Tamsulosin HCL 0.4 MG CAPSULE PO (20:37)
[2021-07-18] MEDS: Atorvastatin Calcium 80 MG TABLET PO (20:37)
[2021-07-18] MEDS: Latanoprost 0.005 % Ophth Sol 2.5 ML DROPS 1 DROP EYE-BOTH (21:16)
[2021-07-18] MEDS: Metoclopramide HCl 10 MG/2 ML VIAL 5 MG IVPUSH (23:54)
[2021-07-19] VITALS (16 sets, daily range): BP systolic 122–166; BP diastolic 46–64; PULSE 65–97; RESP 15–25; TEMP 36.9–37.5; O2SAT 91–100; BMI 27.8
[2021-07-19] MEDS: Lactated Ringers 1,000 ML 80 ML IVCONT (05:36)
[2021-07-19] MEDS: Pantoprazole Sodium 40 MG/10 ML VIAL IVPUSH (05:36)
[2021-07-19 05:52] LABS: Basophils Percent Auto 0.2 % (0-2); Eosinophils Percent Auto 0.1 % (0-4); Hematocrit 32.4 % (42.0-52.0); Hemoglobin 10.9 g/dl (14.0-18.0); Imm Gran Abs Auto 0.04 X10*3/uL (0.00-0.03); Imm Gran Pct Auto 0.3 % (0.0-0.4); Lymphocytes Absolute Auto 0.9 X10*3/uL (1.2-4.9); MANUAL DIFF FLAG SCAN; Mean Corpuscular HGB Conc 33.6 g/dl (31.0-36.0); Mean Corpuscular Hemoglobin 30.8 pg (27.0-33.0); Mean Corpuscular Volume 91.5 fL (80.0-98.0); Monocytes Absolute Auto 1.6 X10*3/uL (0.1-1.2); Monocytes Percent Auto 12.9 % (2-11); Neutrophils Absolute Auto 9.6 x10*3/uL (2.0-8.3); Neutrophils Percent Auto 79.5 % (45-73); Platelet Count 200 X10*3/uL (160-400); Red Blood Count 3.54 X10*6/uL (4.60-5.80); Red Cell Distribution Width 13.2 % (11.0-16.0); SCAN SMEAR FLAG 1; White Blood Count 12.1 X10*3/uL (4.8-10.8)
[2021-07-19 06:16] LABS: SLIDE REVIEW VERIFIED
[2021-07-19 06:25] LABS: Anion Gap 10 (12-20); Blood Urea Nitrogen 11 mg/dL (9-16); Calcium 8.3 mg/dL (8.4-10.2); Carbon Dioxide 24 mmol/L (22-29); Chloride 107 mmol/L (96-108); Creatinine Clr Calc Pharmacy 65.8; Estimated Glomerular Filt Rate > 60; Glucose Random 118 mg/dL (60-115); Potassium 3.8 mmol/L (3.3-5.1); Sodium 137 mmol/L (135-145)
--- NOTE | 2021-07-19 07:46 | P.PNCC_ITS ---
Subjective Subjective Date of Service: 07/19/21 Interval History: 81-year-old male smoker and hyperlipidemic and hypertensive with peripheral vascular disease and cerebrovascular disease but 7 months ago on cardiac catheterization found to have total occlusion of the right coronary which was chronic but collateral source was from a 90% occluded circumflex which was stented and placed on aspirin and Plavix this was restarted yesterday following the right carotid endarterectomy and I do believe that the persistent bradycardia and hypotension was probably due to irritation of the carotid bulb during surgery and the patient was finally from the dopamine maintaining a heart heart rate and blood pressure which are comfortable with 97% oxygen saturation heart rate of 80 normal cardiac exam and back on aspirin and Plavix maintenance and in all likelihood probably ready to go home Critical Care Time (minutes): 35 Physical Exam Vital Signs: Vital Signs: Last Vital Signs Temp 98.2 F 07/18/21 21:00 Pulse 79 07/19/21 07:00 Resp 21 H 07/19/21 07:00 BP 155/58 H 07/19/21 07:00 Pulse Ox 94 07/19/21 07:00 BMI result Body Mass Index 27.8 awake and alert an oriented x3 off dobutamine so the likelihood is that the disorder no Astrid from carotid bulb manipulation has probably dissipated no evidence of the ischemic issues or failure Objective Data Labs CBC & Chem 7: 07/19/21 05:30 07/19/21 05:30 Labs: Laboratory Results - last 24 hr 07/18/21 07/19/21 07/19/21 06:29 05:30 05:30 WBC 12.1 H RBC 3.54 L Hgb 10.9 L Hct 32.4 L MCV 91.5 MCH 30.8 MCHC 33.6 RDW 13.2 Plt Count 200 MPV 10.0 Immature Gran % (Auto) 0.3 Neut % (Auto) 79.5 H Lymph % (Auto) 7.0 L [place] % (Auto) 12.9 H Eos % (Auto) 0.1 Baso % (Auto) 0.2 Lymph # (Auto) 0.9 L [place] # (Auto) 1.6 H Eos # (Auto) 0.0 Baso # (Auto) 0.0 Abs Immat Gran (auto) 0.04 H Absolute Neuts (auto) 9.6 H Absolute Nucleated RBC 0.000 Nucleated RBC % (auto) 0.0 Smear Tech's Comments VERIFIED Sodium 137 Potassium 3.8 Chloride 107 Carbon Dioxide 24 Anion Gap 10 L BUN 11 Creatinine 0.95 Estim Creat Clear Calc 65.8 Estimated GFR > 60 Random Glucose 118 H Calcium 8.3 L Blood Type A Positive Antibody Screen NEGATIVE Progress Note: A&P Assessment and plan (1) COPD (chronic obstructive pulmonary disease): Status: Acute (2) History of smoking at least 1 pack per day for at least 30 years: Status: Acute (3) Vaso-vagal reaction: Status: Acute (4) PVC (premature ventricular contraction): Status: Acute (5) Stenosis of right internal carotid artery: Status: Acute (6) Inferior myocardial infarction: Status: Acute (7) Abnormal nuclear stress test: Status: Acute (8) Carotid stenosis, right: Status: Acute (9) SOB (shortness of breath): Status: Acute (10) Right bundle branch block: Status: Acute (11) S/P cardiac catheterization: Status: Acute (12) Ischemic cardiomyopathy: Status: Acute (13) Atherosclerotic cardiovascular disease: Status: Acute (14) 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: Status: Acute Assessment and Plan: status post right carotid endarterectomy without complication no bleeding and arterial line is discontinued and disorder no Astrid totally resolved and the patient is replaced on his aspirin and Plavix for his circumflex stent which is now 7-month-old so the plan may very well be to discharge Quality Stroke Does the patient have a stroke diagnosis?: No VTE Prior VTE?: No VTE Risk Level:: Medical - low VTE Device Contraindication: Treatment Not Indicated VTE Drug Contraindication: Treatment Not Indicated
[2021-07-19] MEDS: Clopidogrel Bisulfate 75 MG TABLET PO (10:09)
[2021-07-19] MEDS: Aspirin Enteric Coated 81 MG TABLET.DR PO (10:09)
--- NOTE | 2021-07-19 10:15 | MHC.CM.PN ---
Addendum entered by Jody Sofia 07/19/21 14:17: Pt will d/c to home today with no services: spouse to transport. Original Note: Met with pt to discuss d/c planning: pt resides with spouse: states he is independent with all ADL's, drives, has no servcies or adaptive equipment. States he will contact his for transportation home. Copy of HCP requested: IMM in chart. No additional service needs identified.
--- NOTE | 2021-07-19 13:14 | P.DS_ITS ---
DS: Providers Provider Date of Service: 07/19/21 Date of admission: 07/18/21 06:05 Primary care physician: Alejandra Howell NP DS: Diagnosis Discharge Diagnosis (1) COPD (chronic obstructive pulmonary disease): Status: Acute (2) History of smoking at least 1 pack per day for at least 30 years: Status: Acute (3) Vaso-vagal reaction: Status: Acute (4) PVC (premature ventricular contraction): Status: Acute (5) Stenosis of right internal carotid artery: Status: Acute (6) Inferior myocardial infarction: Status: Acute (7) Abnormal nuclear stress test: Status: Acute (8) Carotid stenosis, right: Status: Acute (9) SOB (shortness of breath): Status: Acute (10) Right bundle branch block: Status: Acute (11) S/P cardiac catheterization: Status: Acute (12) Ischemic cardiomyopathy: Status: Acute (13) Atherosclerotic cardiovascular disease: Status: Acute (14) 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: Status: Acute DS: Summary Hospital Course Hospital Course: Patient was admitted on 07/19/2021. He underwent elective carotid endarterectomy of the right side. He had no postprocedure issues. He was obs erved in the ICU overnight. He did require dopamine drip overnight to control his pressure. Postop day 1 pressures were stabilized. Dopamine drip was stopped. A-line and [place] were removed. He was tolerating regular diet. He was neurologically intact in subsequently discharge. Time Spent with Patient Time attestation: Total time spent providing and/or coordinating discharge services: Discharge coordination time: Greater than 30 minutes Quality: Stroke Does the patient have a stroke diagnosis?: No Physical Exam Vital Signs: Vital Signs: Last Vital Signs Temp 99.5 F 07/19/21 12:00 Pulse 85 07/19/21 12:00 Resp 19 07/19/21 12:00 BP 165/57 H 07/19/21 12:00 Pulse Ox 100 07/19/21 12:00 Oxygen Flow Rate 2 07/19/21 08:22 BMI result Body Mass Index 27.8 DS: Data Data Completed and Pending Completed studies during hospitalization [Text1]: Procedures Introduction of Other Thrombolytic into Peripheral Vein, Percutaneous Approach (10/10/20) Pending studies at discharge: Pending at discharge 07/18/21 09:15 Surgical [PTH] Routine Labs on day of discharge: Laboratory Results - last 24 hr 07/19/21 07/19/21 05:30 05:30 WBC 12.1 H RBC 3.54 L Hgb 10.9 L Hct 32.4 L MCV 91.5 MCH 30.8 MCHC 33.6 RDW 13.2 Plt Count 200 MPV 10.0 Immature Gran % (Auto) 0.3 Neut % (Auto) 79.5 H Lymph % (Auto) 7.0 L [place] % (Auto) 12.9 H Eos % (Auto) 0.1 Baso % (Auto) 0.2 Lymph # (Auto) 0.9 L [place] # (Auto) 1.6 H Eos # (Auto) 0.0 Baso # (Auto) 0.0 Abs Immat Gran (auto) 0.04 H Absolute Neuts (auto) 9.6 H Absolute Nucleated RBC 0.000 Nucleated RBC % (auto) 0.0 Smear Tech's Comments VERIFIED Sodium 137 Potassium 3.8 Chloride 107 Carbon Dioxide 24 Anion Gap 10 L BUN 11 Creatinine 0.95 Estim Creat Clear Calc 65.8 Estimated GFR > 60 Random Glucose 118 H Calcium 8.3 L Discharge Plan Discharge Anticipated Discharge Date/Time: 07/19/21 13:04 Patient Disposition: Home, Self-Care Discharge Diagnosis: s/p right carotid endarterectomy Referrals: Alejandra Howell, WEAVING INSTRUCTOR [Primary Care Provider] - 1 Week Discharge Medications: New oxycodone-acetaminophen [Percocet] 5-325 mg tablet 1 tab PO Q8H PRN (Reason: pain) Qty: 10 RF: 0 Continued lisinopril 5 mg tablet 5 mg PO DAILY Qty: 30 RF: 5 clopidogrel [Plavix] 75 mg tablet 75 mg PO DAILY Qty: 90 RF: 1 tamsulosin 0.4 mg Capsule 0.4 mg PO BEDTIME RF: 0 atorvastatin 80 mg Tablet 80 mg PO BEDTIME RF: 0 latanoprost 0.005 % drops 1 drp ophthalmic (eye) BEDTIME RF: 0 aspirin 81 mg Tablet,Delayed Release (Dr/Ec) 81 mg PO DAILY Qty: 90 RF: 1 cetirizine 10 mg capsule 10 mg PO BEDTIME PRN (Reason: Allergy Symptoms) RF: 0 metoprolol succinate 25 mg tablet extended release 24 hr 25 mg PO DAILY RF: 0 isosorbide mononitrate 30 mg tablet extended release 24 hr 30 mg PO DAILY Qty: 90 RF: 1 Discharge Orders: Discharge Order (Routine); Ordered 07/19/21 Ordered By: Loc Cabrera Activity on Discharge: As tolerated Stand Alone Forms: Patient Portal Discharge page Activity Restrictions/Additional Instructions: Take it easy today and you may ambulate around the house. Within 24 hours you can resume normal activity Please see carotid instruction sheet See Dr. Cabrera in follow-up in approximately 2 weeks time. You should already have an appointment if not please call my office at [phone] Please see above for any change in medications If you notice excessive bleeding please immediately call my office or return to the emergency room. Care Plan Goals: Resume normal activity Health Concerns: Carotid stenosis Plan of Treatment: Surveillance follow-up Assessment: Bilateral carotid stenosis
--- NOTE | 2021-07-20 07:01 | HO.POSTANES ---
Post Anesthesia Evaluation Post Anesthesia Evaluation Anesthesia: General Mental Status: Awake Pain Control: Satisfactory Nausea/Vomiting: None Hydration: Adequate Anesthesia-Related Issues: No Anes. Related Issues
== END 2021-07-19 14:30 | disposition home or self-care (01) | DRG 39 ==
LOC: HO.SSSA 06:57 → HO.ICU 14:27
PROVIDERS: Nurse Practitioner; Admitting Provider Surgery Vascular Surgery; PCP Nurse Practitioner Family; Visit Provider Surgery Vascular Surgery
PROC: 03CH0ZZ Extirpation of Matter from Right Common Carotid Artery, Open Approach (ICD-10-PCS; CPT 35301; principal; 2021-07-18 07:30)
DX: I65.21 Occlusion and stenosis of right carotid artery (principal); E78.5 Hyperlipidemia, unspecified; I10 Essential (primary) hypertension; Z20.822 Contact with and (suspected) exposure to COVID-19; Z86.73 Personal history of transient ischemic attack (TIA), and cerebral infarction without residual deficits; Z87.891 Personal history of nicotine dependence; Z79.02 Long term (current) use of antithrombotics/antiplatelets; Z79.82 Long term (current) use of aspirin; Z79.899 Other long term (current) drug therapy
CPT/HCPCS: 36415; 71046; 80048; 85025; 85027; 85610; 85730; 86850; 86900; 86901; 87635; 88304; 88311; 93005; C1758; C1768; J0690; J1170; J1265; J2370; J2405; J2765; J3010

== ENCOUNTER 2021-08-03 13:12 | Observation (INO) | payer MEDICARE, SELFPAY ==
--- NOTE | 2021-08-03 | ECG_ITS ---
Test Reason : NEURO SYMPTOS Blood Pressure : / mmHG Vent. Rate : 061 BPM Atrial Rate : 061 BPM P-R Int : 156 ms QRS Dur : 140 ms QT Int : 478 ms P-R-T Axes : 028 030 -18 degrees QTc Int : 481 ms Normal sinus rhythm Right bundle branch block Lateral infarct (cited on or before 10-OCT-2020) Inferior infarct (cited on or before 24-NOV-2016) Abnormal ECG When compared with ECG of 12-JUL-2021 12:51, Premature ventricular complexes are no longer Present Referred By: Generic ED Physician Electronically Signed By:Juan C Sims
--- NOTE | ~2021-08-03 | CT_ITS ---
EXAMINATION: CT HEAD WITHOUT CONTRAST CLINICAL INFORMATION: New onset of seizure COMPARISON: CT head 12/10/2020 TECHNIQUE: Contiguous axial imaging was performed from the skull base to vertex without intravenous administration of contrast. Coronal and sagittal reformatted images are performed at the CT scanner This CT examination was performed using dose optimization techniques as appropriate, variously including the following: *Automated exposure control *Adjustment of mA and/or kV according to patient size (this includes techniques or standardized protocols for targeted exams where dose is matched to indication/reason for exam; i.e. extremities or head) *Use of iterative reconstruction technique DLP: 700 mGy-cm FINDINGS: There is no evidence of acute intracranial hemorrhage or territorial infarction. No abnormal mass effect or midline shift is seen. Lynch to white matter differentiation is well preserved. No extra-axial fluid collections are identified. There is generalized global volume loss. There is moderate prominence of the ventricles and the sulci . There is mild hypodensity of the periventricular white matter due to chronic small vessel ischemic disease. There are vascular calcifications of the internal carotid arteries bilaterally. The osseous structures and soft tissues are normal. The mastoid air cells and visualized portions of the paranasal sinuses are well aerated. CT/CT head/brain wo con IMPRESSION: No acute intracranial pathology.
--- NOTE | ~2021-08-03 | MR_ITS ---
EXAMINATION: MRI BRAIN WITHOUT CONTRAST CLINICAL INFORMATION: Transient ischemic attack. COMPARISON: CT angiogram of the head and neck 08/03/2021. TECHNIQUE: Multiplanar MR imaging of the brain was performed without contrast. FINDINGS: There are numerous foci of T2 FLAIR signal hyperintensity within the periventricular white matter and calvin that most likely represent a chronic manifestation of small vessel ischemia. No acute territorial infarct. No pathological magnetic susceptibility artifact. Intracranial vascular flow voids are maintained. There is no intracranial mass effect or midline shift. No abnormal extra-axial collection. Lateral and third ventricles are proportionate to the subarachnoid spaces. No hydrocephalus. Midline structures including the cervicomedullary junction are normal. No acute bone marrow signal changes. There is no mastoid middle ear effusion. Mild paranasal sinus disease primarily affecting the ethmoid air cells. Globes and orbits are symmetric. MR/MR head/brain wo con IMPRESSION: There are numerous chronic small vessel ischemic changes primarily involving the periventricular white matter and calvin. No evidence of acute territorial infarct or hemorrhage.
--- NOTE | ~2021-08-03 | CT_ITS ---
EXAMINATION: CT ANGIOGRAM HEAD CT ANGIOGRAM NECK CLINICAL INFORMATION: Syncope. Transient ischemic attack. Right carotid endarterectomy 2 weeks prior. COMPARISON: CT head from 07/14/2021. Brain MRI from 10/11/2020. CTA head and neck from 10/10/2020. TECHNIQUE: Initial noncontrast volleyball player imaging of the head and neck was performed. Noncontrast head CT was also performed. Test bolus sequences followed by intravenous administration 70 mL of Omnipaque 350. Helical imaging was performed in the axial plane from the aortic arch to the skull vertex. Delayed postcontrast imaging of the head was also performed. The data was processed at the certified ophthalmic technologist's workstation for generation of MIP sequences. Angled MIPs and volume rendered reformatted images were also generated at an offline 3D workstation. Stenoses are assessed in accordance with NASCET criteria unless otherwise indicated. This CT examination was performed using dose optimization techniques as appropriate, variously including the following: *Automated exposure control. *Adjustment of mA and/or kV according to patient size (this includes techniques or standardized protocols for targeted exams where dose is matched to indication/reason for exam; i.e. extremities or head). *Use of iterative reconstruction technique. DLP: 2611 mGy-cm FINDINGS: CT Head: There is no evidence of acute intracranial hemorrhage or edematous territorial infarction. Scattered hypoattenuation in the periventricular and deep white matter are consistent with moderate microangiopathy. Lynch-white matter differentiation is preserved. Proportional prominence of the ventricles and sulcal spaces. No evidence for obstructive hydrocephalus. No abnormal mass effect or midline shift. No extra-axial fluid collections. No pathologic intra-axial enhancement or regional oligemia. No acute soft tissue or osseous abnormalities. Mild mucosal thickening of the paranasal sinuses. The mastoid air cells and middle ear cavities are clear. The patient is edentulous. CT Neck: Changes of recent right-sided carotid endarterectomy. No discrete fluid collection. Mild heterogeneity of the thyroid gland. There is a 0.9 cm hypoattenuating nodule within the right thyroid lobe partially incidental. The remaining cervical soft tissues are within normal limits. Advanced degenerative disc disease at C3-C4, C5-C6, and C6-C7. Associated disc-osteophyte complex formation. Facet and uncovertebral joint arthropathy leads to osseous encroachment on the neural foramina from C3-C7. CT Upper Chest: Partially demonstrated prominent bleb within the left upper lobe. Moderate underlying centrilobular emphysema. Neck CTA: Aortic Arch: Normal contour and caliber with moderate calcific atherosclerotic disease. Classic 3 vessel branching pattern of the aortic arch. Great Vessel Origins: Irregular calcific atherosclerotic disease causes 65% stenosis of the origin of the left subclavian artery. No significant stenosis of the additional branch origins. Right Common Carotid Artery: No focal stenosis or occlusion. Cervical Right Internal Carotid Artery: Changes of the proximal endarterectomy. There is 40% irregular narrowing of the proximal ICA. 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 There is segmental severe stenoses of the right external carotid artery. Left Common Carotid Artery: No focal stenosis or occlusion. Cervical Left Internal Carotid Artery: Calcific atherosclerotic disease of the carotid bulb and proximal internal carotid artery causing less than 50% stenosis. Cervical Right Vertebral Artery: Dominant. Calcific atherosclerotic disease causes moderate stenosis of the origin. No focal stenosis or occlusion. Cervical Left Vertebral Artery: Occluded from its origin. Segmental reconstitution of threadlike V2 and V3 segments. Brain CTA: Intracranial Internal Carotid Arteries: Calcific atherosclerotic disease of the intracranial internal carotid arteries without occlusion or flow-limiting stenosis. Right Anterior Cerebral Artery: Normal A1 segment. Normal opacification of the distal MATI segments. Left Anterior Cerebral Artery: Normal A1 segment. Normal opacification of the distal MATI segments. Anterior Communicating Artery: Normal. Right Middle Cerebral Artery: Normal M1 segment of the MCA without focal stenosis or occlusion. Normal arborization of the distal segments. Left Middle Cerebral Artery: Normal M1 segment of the MCA without focal stenosis or occlusion. Normal arborization of the distal segments. Right Vertebral Artery: Normal V4 segment. Normal opacification of the proximal segments of the posterior inferior cerebellar artery. Left Vertebral Artery: There is opacification of the V4 segment, likely in a retrograde fashion. Normal opacification of the proximal segments of the posterior inferior cerebellar artery. Basilar Artery: Mild atherosclerotic irregularities without focal stenosis or occlusion. Normal appearance of the proximal superior cerebellar arteries. Right Posterior Cerebral Artery: Normal P1 segment. Normal opacification of the distal PECAN SHELLER segments. Left Posterior Cerebral Artery: Normal P1 segment. Normal opacification of the distal PECAN SHELLER segments. Normal opacification of the superior sagittal, straight, transverse, and sigmoid sinuses. CT/CT angio head neck IMPRESSION: 1. Changes of recent right-sided carotid endarterectomy. Associated ectatic projection along the anterior aspect of the endarterectomy site suggestive of pseudoaneurysm. There is 40% irregular narrowing of the proximal right ICA. No additional flow-limiting stenoses of the right ICA. 2. Atherosclerotic disease causes 65% stenosis of the origin of the left subclavian artery. 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 3. CTA of the head without additional proximal occlusion or flow-limiting stenosis. 4. No evidence of acute intracranial hemorrhage or edematous territorial infarction. Moderate underlying microangiopathy and generalized cerebral volume loss.
[2021-08-03 13:28] VITALS: BP 152/51; BP 170/70; PULSE 61; RESP 18; TEMP 36.4; O2SAT 98; BMI 25.8
--- NOTE | 2021-08-03 14:28 | ED.NEUROSD ---
HPI - Neuro Symptoms/Deficit General Chief Complaint: Neuro Symptoms/Deficit Stated Complaint: TIA @KITCHEN TABLE HALF HOUR AGO PER EMS Time Seen by Provider: 08/03/21 14:17 Source: patient and EMS Mode of arrival: EMS Limitations: no limitations History of Present Illness HPI Narrative: Patient comes to the emergency room via EMS. Since that earlier today, patient was in his kitchen at home, eating macaroni and cheese, then the next thing that he remembers is his asking him if he was okay. According to EMS, seems that the patient had a prolonged period of staring while awake, no tonic clonic activity seen or reported. EMS states that when they arrived to the patient's residency. Patient was still staring. At this time, patient states that he feels completely normal. Patient reports no chest pain, no headache. Note, patient has history of TIAs and CVAs, last 1 in October of 2020 that required tPA. Also, 2 weeks ago on July 18, patient had a right carotid endarterectomy which was uneventful. Patient states he is feeling well, requesting to have a cup of coffee in to be discharged as soon as possible Related Data Home Medications Medication Instructions Recorded Confirmed tamsulosin 0.4 mg capsule 0.4 mg PO BEDTIME 06/20/20 07/12/21 cetirizine 10 mg capsule 10 mg PO BEDTIME PRN 11/19/20 07/12/21 metoprolol succinate 25 mg 25 mg PO DAILY 02/10/21 07/12/21 tablet,extended release 24 hr atorvastatin 80 mg tablet 80 mg PO BEDTIME 02/22/21 07/12/21 latanoprost 0.005 % eye drops 1 drp OPHTHALMIC (EYE) BEDTIME 02/22/21 07/12/21 Previous Rx's Medication Instructions Recorded aspirin 81 mg tablet,delayed 81 mg PO DAILY #90 tab 10/11/20 release lisinopril 5 mg tablet 5 mg PO DAILY #30 tab 10/27/20 clopidogrel 75 mg tablet (Plavix) 75 mg PO DAILY #90 tab 12/03/20 isosorbide mononitrate 30 mg 30 mg PO DAILY #90 tab 02/10/21 tablet,extended release 24 hr oxycodone-acetaminophen 5 mg-325 1 tab PO Q8H PRN #10 tab 07/19/21 mg tablet (Percocet) Allergies Allergy/AdvReac Type Severity Reaction Status Date / Time bee pollen [bee stings] Allergy Severe Anaphylaxis Verified 07/18/21 07:12 Review of Systems Review of Systems: Constitutional : No Weight loss, No Fever, No Chills, No Night Sweats, No Fatigue, No Malaise ENT/Mouth : No Hearing loss, No Ear Pain, No Nasal Congestion, No Sinus Pain, No Hoarseness, No sore throat, No Rhinorrhea, No Swallowing Difficulty Eyes: No Eye Pain, No Swelling, No Redness, No Foreign Body, No Discharge, No Vision Changes Cardiovascular : No Chest Pain, No SOB, No Dyspnea on Exertion, No Orthopnea, No Edema, No Palpitations Respiratory : No Cough, No Sputum, No Wheezing, No Smoke Exposure, No Dyspnea Gastrointestinal : No Nausea, No Vomiting, No Diarrhea, No Constipation, No abdominal Pain, No Hematochezia, No Melena Genitourinary : no irregular bleeding, No Dysuria, No Urinary Frequency, No Hematuria, No Urinary Incontinence, No Urgency, No Flank Pain, No Urinary Flow Changes, No Hesitancy Musculoskeletal : No joint pain, No Myalgias, No Joint Swelling Skin : No Skin Lesions, No rash Neuro : No Weakness, No Numbness, No Paresthesias, No Loss of Consciousness, No Dizziness, No Headache, per EMS and family patient stared into space with no clonic tonic activity Psych : No Anxiety/Panic, No Depression, No SI/HI/AH/VH, No Social Issues, Heme/Lymph: No Bruising, No Bleeding,No Lymphadenopathy Endocrine : No Polyuria, No Polydipsia, No Temperature Intolerance PMFSH Past Medical History Medical History Abnormal echocardiogram Ambulates with cane Arthritis BPH (benign prostatic hyperplasia) Cerebrovascular accident COPD (chronic obstructive pulmonary disease) COVID-19 vaccine series completed CVA (cerebrovascular accident) GUEVARA (dyspnea on exertion) Essential hypertension Hard of hearing History of acute inferior wall myocardial infarction History of smoking at least 1 pack per day for at least 30 years Hyperlipidemia Ischemic cardiomyopathy Low back pain Nasal congestion Near syncope 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 Right bundle branch block Surgical History H/O foot surgery H/O heart artery stent Previous back surgery S/P cardiac catheterization Family History Family History Other CAD (coronary artery disease) Social History Social History Household Members: Spouse Housing: House Are you a primary healthcare facility administrator to a significant other at home: No Do you presently have visiting nurse or other home services: No Alcohol intake: never Patient Tobacco Use Status: Former Tobacco user Quit Date: 2015 Tobacco use type: Cigarette Cigarette Packs Per Day: 1 Cigarettes Per Day: 20.0 Years Smoked: 30 e-Cigarette/Vaping Use: Former Use Use of substances other than those prescribed or required for medical reasons: No Advance Directives: Yes Advance Directives on File: Yes Advance Directives Date on File: 07/18/21 service: Yes Current occupational status: retired Physical Exam Vital Signs: Vital Signs: Last Vital Signs Temp 97.8 F 08/03/21 20:17 Pulse 61 08/03/21 20:17 Resp 17 08/03/21 20:17 BP 169/75 H 08/03/21 20:17 Pulse Ox 99 08/03/21 20:17 BMI result Body Mass Index 25.8 Const: Other: Appearance: Alert. Oriented X3. No acute distress. Eyes: Pupils equal, round and reactive to light. ENT: Pharynx normal. Neck: Normal range of motion, healing scar on the right side status post carotid endarterectomy, no signs of infection CVS: Normal heart rate and rhythm. Pulses normal. Normal S1 and S2 Respiratory: No respiratory distress. Breath sounds normal. No Wheezing. No rales Abdomen: Soft and nontender. No rigidity. No distention. Skin: Skin warm and dry. Normal skin color. Normal skin turgor. Extremities: No lower extremity edema. No Lacerations. No Rash Neuro: Oriented X 3. No motor deficit. No sensory deficit. Moving all extermities. No slurred speech. 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 Patient was supposed to have an appointment tomorrow, but patient will be admitted, it is unclear if patient had TIA versus a first-time were focal seizure. MDM - Neuro Symptoms/Deficit Lab Data Result diagrams: 08/03/21 15:37 08/03/21 15:37 Labs: Lab Results 08/03/21 08/03/21 08/03/21 Range/Units 15:37 15:37 15:37 WBC 10.4 (4.8-10.8) X10*3/uL RBC 3.70 L (4.60-5.80) X10*6/uL Hgb 11.4 L (14.0-18.0) g/dl Hct 34.7 L (42.0-52.0) % MCV 93.8 (80.0-98.0) fL MCH 30.8 (27.0-33.0) pg MCHC 32.9 (31.0-36.0) g/dl RDW 13.3 (11.0-16.0) % Plt Count 311 D (160-400) X10*3/uL MPV 9.1 L (9.4-12.4) fL Immature Gran % (Auto) 0.5 H (0.0-0.4) % Neut % (Auto) 83.4 H (45-73) % Lymph % (Auto) 7.7 L (20-40) % [place] % (Auto) 6.4 (2-11) % Eos % (Auto) 1.4 (0-4) % Baso % (Auto) 0.6 (0-2) % Lymph # (Auto) 0.8 L (1.2-4.9) X10*3/uL [place] # (Auto) 0.7 (0.1-1.2) X10*3/uL Eos # (Auto) 0.2 (0.0-0.4) X10*3/uL Baso # (Auto) 0.1 (0.0-0.2) X10*3/uL Abs Immat Gran (auto) 0.05 H (0.00-0.03) X10*3/uL Absolute Neuts (auto) 8.7 H (2.0-8.3) x10*3/uL Absolute Nucleated RBC 0.000 (0.0-0.012) X10*3/uL Nucleated RBC % (auto) 0.0 (0.0-0.2) /100WBC Sodium 138 (135-145) mmol/L Potassium 4.8 D (3.3-5.1) mmol/L Chloride 106 (96-108) mmol/L Carbon Dioxide 29 (22-29) mmol/L Anion Gap 8 L (12-20) BUN 10 (9-16) mg/dL Creatinine 1.06 (0.5-1.4) mg/dL Estim Creat Clear Calc 54.5 Estimated GFR > 60 Random Glucose 97 (60-115) mg/dL Calcium 9.0 D (8.4-10.2) mg/dL Total Bilirubin 0.7 (0.0-1.0) mg/dL Direct Bilirubin 0.3 (0.0-0.5) mg/dL AST 18 (5-37) U/L ALT 15 (0-40) U/L Alkaline Phosphatase 106 (39-117) U/L Troponin I High Sens 22.3 (<3.5-35.0) ng/L Total Protein 6.5 (6.5-8.0) g/dL Albumin 3.7 (3.5-5.0) g/dL Discharge Plan Discharge Clinical Impression: Transient cerebral ischemia Patient Disposition: Admitted As Inpatient Prescriptions: No Action lisinopril 5 mg tablet 5 mg PO DAILY Qty: 30 RF: 5 clopidogrel [Plavix] 75 mg tablet 75 mg PO DAILY Qty: 90 RF: 1 tamsulosin 0.4 mg Capsule 0.4 mg PO BEDTIME RF: 0 atorvastatin 80 mg Tablet 80 mg PO BEDTIME RF: 0 latanoprost 0.005 % drops 1 drp ophthalmic (eye) BEDTIME RF: 0 aspirin 81 mg Tablet,Delayed Release (Dr/Ec) 81 mg PO DAILY Qty: 90 RF: 1 oxycodone-acetaminophen [Percocet] 5-325 mg tablet 1 tab PO Q8H PRN (Reason: pain) Qty: 10 RF: 0 cetirizine 10 mg capsule 10 mg PO BEDTIME PRN (Reason: Allergy Symptoms) RF: 0 metoprolol succinate 25 mg tablet extended release 24 hr 25 mg PO DAILY RF: 0 isosorbide mononitrate 30 mg tablet extended release 24 hr 30 mg PO DAILY Qty: 90 RF: 1
--- NOTE | 2021-08-03 14:39 | ECG_ITS ---
Test Reason : NEURO SYMPTOMS Blood Pressure : / mmHG Vent. Rate : 067 BPM Atrial Rate : 067 BPM P-R Int : 176 ms QRS Dur : 140 ms QT Int : 476 ms P-R-T Axes : 031 030 -04 degrees QTc Int : 502 ms Normal sinus rhythm Right bundle branch block Lateral infarct (cited on or before 12-JUL-2021) Inferior infarct (cited on or before 24-NOV-2016) Abnormal ECG When compared with ECG of 03-AUG-2021 13:44, No significant change was found Referred By: Holley Cage Electronically Signed By:Juan C Sims
[2021-08-03 15:39] VITALS: BP 162/61; PULSE 58; RESP 16; TEMP 36.7; O2SAT 98
[2021-08-03 15:46] LABS: MANUAL DIFF FLAG NO
[2021-08-03 15:47] LABS: Basophils Absolute Auto 0.1 X10*3/uL (0.0-0.2); Basophils Percent Auto 0.6 % (0-2); Eosinophils Absolute Auto 0.2 X10*3/uL (0.0-0.4); Eosinophils Percent Auto 1.4 % (0-4); Hematocrit 34.7 % (42.0-52.0); Hemoglobin 11.4 g/dl (14.0-18.0); Imm Gran Abs Auto 0.05 X10*3/uL (0.00-0.03); Imm Gran Pct Auto 0.5 % (0.0-0.4); Lymphocytes Absolute Auto 0.8 X10*3/uL (1.2-4.9); Lymphocytes Percent Auto 7.7 % (20-40); Mean Corpuscular HGB Conc 32.9 g/dl (31.0-36.0); Mean Corpuscular Hemoglobin 30.8 pg (27.0-33.0); Mean Corpuscular Volume 93.8 fL (80.0-98.0); Mean Platelet Volume 9.1 fL (9.4-12.4); Monocytes Absolute Auto 0.7 X10*3/uL (0.1-1.2); Monocytes Percent Auto 6.4 % (2-11); Neutrophils Absolute Auto 8.7 x10*3/uL (2.0-8.3); Neutrophils Percent Auto 83.4 % (45-73); Platelet Count 311 X10*3/uL (160-400); Red Cell Distribution Width 13.3 % (11.0-16.0); White Blood Count 10.4 X10*3/uL (4.8-10.8)
[2021-08-03 16:06] LABS: Alanine Aminotransferase 15 U/L (0-40); Albumin Level 3.7 g/dL (3.5-5.0); Alkaline Phosphatase 106 U/L (39-117); Anion Gap 8 (12-20); Aspartate Amino Transferase 18 U/L (5-37); Bilirubin Direct 0.3 mg/dL (0.0-0.5); Bilirubin Total 0.7 mg/dL (0.0-1.0); Blood Urea Nitrogen 10 mg/dL (9-16); Carbon Dioxide 29 mmol/L (22-29); Chloride 106 mmol/L (96-108); Creatinine Clr Calc Pharmacy 54.5; Estimated Glomerular Filt Rate > 60; Glucose Random 97 mg/dL (60-115); Potassium 4.8 mmol/L (3.3-5.1); Sodium 138 mmol/L (135-145); Total Protein 6.5 g/dL (6.5-8.0)
[2021-08-03 16:09] LABS: Troponin-I High Sensitivity 22.3 ng/L (<3.5-35.0)
[2021-08-03 16:42] VITALS: BP 178/66; PULSE 59; RESP 17; TEMP 36.6; O2SAT 99
[2021-08-03] MEDS: iohexoL 350 MG/ML 100 ML INFUS..BTL IV (18:26)
[2021-08-03 20:17] VITALS: BP 169/75; PULSE 61; RESP 17; TEMP 36.6; O2SAT 99
--- NOTE | 2021-08-03 21:14 | PHA.MEDREC ---
Pharmacy Consult ? Medication Reconciliation Pharmacy has completed the medication reconciliation. No remarkable issues. Pt gets medications from [facility] and had an updated list with him. Meme Foley RPh
--- NOTE | 2021-08-03 22:11 | PM.IMHP ---
History of Present Illness Date of Service: 08/03/21 Chief Complaint: neurological sx this is an 81-year-old male with significant past medical history that includes CVA who most recently in October requiring tPA, COPD, peripheral artery disease status post right carotid endarterectomy 2 weeks ago, history of CHF, CAD, BPH, HTN, HLD among others who presents to the hospital with complaints of a transient episode of lucidness. Patient reports that he was at his kitchen table eating when all of a sudden he felt significantly hot, flushed, started sweating, and felt like he went to sleep. He could hear his calling him but he did not have the desire to respond like he was sleeping and did not want to be bothered. He is unsure how long this lasted, according to his he was staring in the void with his eyes open but no responding to her and seen no acute did not see her. Patient was in this lucid trans 0.0 arrival of EMS, he returned to normal spontaneously, he felt confused for few seconds but reports no seizure-like activity, no postictal symptoms. he otherwise denies having any chest pain, no palpitations, no headache or change in vision, no numbness tingling or weakness in his arms or legs, no shortness of breath, no abdominal pain nausea or vomiting, no diarrhea constipation, no urinary symptoms and no lower extremity edema. 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 with partial retrograde reconstruction of the distal segment of the left vertebral artery patient will be admitted for observation Review of Systems Review of Systems: Yes all other systems are reviewed and are negative [facility] Medical History Abnormal echocardiogram Ambulates with cane Arthritis BPH (benign prostatic hyperplasia) Cerebrovascular accident COPD (chronic obstructive pulmonary disease) COVID-19 vaccine series completed CVA (cerebrovascular accident) GUEVARA (dyspnea on exertion) Essential hypertension Hard of hearing History of acute inferior wall myocardial infarction History of smoking at least 1 pack per day for at least 30 years Hyperlipidemia Ischemic cardiomyopathy Low back pain Nasal congestion Near syncope 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 Right bundle branch block Family History Other CAD (coronary artery disease) Surgical History H/O foot surgery H/O heart artery stent Previous back surgery S/P cardiac catheterization Social History Household Members: Spouse Housing: House Are you a primary lpn care manager to a significant other at home: No Do you presently have visiting nurse or other home services: No Alcohol intake: never Patient Tobacco Use Status: Former Tobacco user Quit Date: 2015 Tobacco use type: Cigarette Cigarette Packs Per Day: 1 Cigarettes Per Day: 20.0 Years Smoked: 30 e-Cigarette/Vaping Use: Former Use Use of substances other than those prescribed or required for medical reasons: No Advance Directives: Yes Advance Directives on File: Yes Advance Directives Date on File: 07/18/21 service: Yes Current occupational status: retired Meds Allergies Allergy/AdvReac Type Severity Reaction Status Date / Time bee pollen [bee stings] Allergy Severe Anaphylaxis Verified 07/18/21 07:12 Home Medications Medication Instructions Recorded Confirmed Last Taken Type tamsulosin 0.4 mg capsule 0.4 mg PO BEDTIME 06/20/20 08/03/21 08/02/21 History cetirizine 10 mg capsule 10 mg PO BEDTIME PRN 11/19/20 08/03/21 08/02/21 History metoprolol succinate 25 mg 25 mg PO DAILY 02/10/21 08/03/21 08/03/21 History tablet,extended release 24 hr atorvastatin 80 mg tablet 80 mg PO BEDTIME 02/22/21 08/03/21 08/02/21 History latanoprost 0.005 % eye drops 1 drp OPHTHALMIC (EYE) BEDTIME 02/22/21 08/03/21 08/02/21 History Physical Exam Vital Signs and Narrative: Vital Signs: Last Vital Signs Temp 97.8 F 08/03/21 20:17 Pulse 61 08/03/21 20:17 Resp 17 08/03/21 20:17 BP 169/75 H 08/03/21 20:17 Pulse Ox 99 08/03/21 20:17 BMI result Body Mass Index 25.8 Const: General: cooperative and no acute distress Orientation/consciousness: patient oriented x3 Eyes: General: appearance normal, both eyes and all related structures Pupils: Equal, round and reactive pupils present Neck: Other: right healing scar at the right carotid artery location, no erythema warmth or abnormal projection noted Resp: Effort & Inspection: normal respiratory effort Auscultation: clear to auscultation bilaterally Cardio: Rate: regular rate Rhythm: regular rhythm GI: Palpation (GI): Soft to palpation Auscultation: normal bowel sounds Skin: General skin exam: no rashes or lesions noted Neuro: Other: no neurological deficits cranial nerves intact strength 5/5 in all extremities General: patient oriented x3 Cranial nerves: Yes Equal, round and reactive pupils present Cognition (Neuro): normal cognition Extrem: General: Yes normal to inspection and Yes no pedal edema Results Labs CBC and Chem 7: 08/03/21 15:37 08/03/21 15:37 Labs: Laboratory Results - last 24 hr 08/03/21 08/03/21 08/03/21 15:37 15:37 15:37 MCV 93.8 MCH 30.8 MCHC 32.9 RDW 13.3 Plt Count 311 D MPV 9.1 L Immature Gran % (Auto) 0.5 H Neut % (Auto) 83.4 H Lymph % (Auto) 7.7 L [place] % (Auto) 6.4 Eos % (Auto) 1.4 Baso % (Auto) 0.6 Lymph # (Auto) 0.8 L [place] # (Auto) 0.7 Eos # (Auto) 0.2 Baso # (Auto) 0.1 Abs Immat Gran (auto) 0.05 H Absolute Neuts (auto) 8.7 H Absolute Nucleated RBC 0.000 Nucleated RBC % (auto) 0.0 Anion Gap 8 L Estim Creat Clear Calc 54.5 Estimated GFR > 60 Random Glucose 97 Calcium 9.0 D Total Bilirubin 0.7 Direct Bilirubin 0.3 AST 18 ALT 15 Alkaline Phosphatase 106 Troponin I High Sens 22.3 Total Protein 6.5 Albumin 3.7 Imaging Radiologist's Impressions: Impressions Head CT 08/03/21 14:52 IMPRESSION: No acute intracranial pathology. Head/Neck CTA 08/03/21 18:48 IMPRESSION: 1. Changes of recent right-sided carotid endarterectomy. Associated ectatic projection along the anterior aspect of the endarterectomy site suggestive of pseudoaneurysm. There is 40% irregular narrowing of the proximal right ICA. No additional flow-limiting stenoses of the right ICA. 2. Atherosclerotic disease causes 65% stenosis of the origin of the left subclavian artery. 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 3. CTA of the head without additional proximal occlusion or flow-limiting stenosis. 4. No evidence of acute intracranial hemorrhage or edematous territorial infarction. Moderate underlying microangiopathy and generalized cerebral volume loss. 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
[2021-08-03 22:20] LABS: COVID-19 Test Negative (Negative)
[2021-08-03 22:34] VITALS: BP 168/78; PULSE 70; RESP 20; TEMP 36.9; O2SAT 95
[2021-08-03] MEDS: Tamsulosin HCL 0.4 MG CAPSULE PO (23:12)
[2021-08-03] MEDS: Atorvastatin Calcium 80 MG TABLET PO (23:12)
--- NOTE | 2021-08-04 | EEG_ITS ---
This is a 16-channel EEG with an EKG lead. Patient is awake during the tracing. Background EEG rhythm is about 7-8 hertz, 5 to 30 microvolt posteriorly and lower amplitude fast anteriorly. Photic stimulation does not produce any significant abnormality. Hyperventilation is not performed. Cardiac lead does not reveal any significant abnormality. No definite sharp paroxysmal tendency noted. IMPRESSION: Mild slowing with no evidence of seizure disorder. MD JOSE Morneo/ABEL / [id number]
--- NOTE | 2021-08-04 03:08 | PC.NURSE ---
Pt ambulated around the unit with walker and REGIONAL ENGINEER Pt tolerated well Pt back on bed on monitors No apparent distress Will continue to monitor
[2021-08-04 04:24] VITALS: BP 140/65; PULSE 62; RESP 17; O2SAT 95
[2021-08-04 07:13] LABS: MANUAL DIFF FLAG NO
[2021-08-04 07:14] LABS: Basophils Absolute Auto 0.1 X10*3/uL (0.0-0.2); Basophils Percent Auto 0.7 % (0-2); Eosinophils Absolute Auto 0.2 X10*3/uL (0.0-0.4); Eosinophils Percent Auto 3.3 % (0-4); Hematocrit 32.5 % (42.0-52.0); Hemoglobin 10.8 g/dl (14.0-18.0); Imm Gran Abs Auto 0.01 X10*3/uL (0.00-0.03); Imm Gran Pct Auto 0.1 % (0.0-0.4); Lymphocytes Absolute Auto 1.3 X10*3/uL (1.2-4.9); Lymphocytes Percent Auto 18.6 % (20-40); Mean Corpuscular HGB Conc 33.2 g/dl (31.0-36.0); Mean Corpuscular Hemoglobin 30.7 pg (27.0-33.0); Mean Corpuscular Volume 92.3 fL (80.0-98.0); Mean Platelet Volume 9.4 fL (9.4-12.4); Monocytes Absolute Auto 0.7 X10*3/uL (0.1-1.2); Monocytes Percent Auto 9.7 % (2-11); Neutrophils Absolute Auto 4.7 x10*3/uL (2.0-8.3); Neutrophils Percent Auto 67.6 % (45-73); Platelet Count 294 X10*3/uL (160-400); Red Blood Count 3.52 X10*6/uL (4.60-5.80); Red Cell Distribution Width 13.7 % (11.0-16.0); White Blood Count 6.9 X10*3/uL (4.8-10.8)
[2021-08-04 08:01] LABS: Anion Gap 11 (12-20); Blood Urea Nitrogen 11 mg/dL (9-16); Calcium 8.5 mg/dL (8.4-10.2); Carbon Dioxide 25 mmol/L (22-29); Chloride 107 mmol/L (96-108); Creatinine Clr Calc Pharmacy 57.7; Estimated Glomerular Filt Rate > 60; Glucose Random 107 mg/dL (60-115); Potassium 3.8 mmol/L (3.3-5.1); Sodium 138 mmol/L (135-145)
[2021-08-04 08:11] VITALS: BP 146/64; PULSE 70
[2021-08-04] MEDS: Isosorbide Mononitrate 30 MG TAB.ER.24H PO (08:11)
[2021-08-04 08:12] VITALS: BP 146/64; PULSE 69
[2021-08-04] MEDS: 0.9 % Sodium Chloride Flush 3 ML SYRINGE IVFLUSH (08:12)
[2021-08-04] MEDS: Clopidogrel Bisulfate 75 MG TABLET PO (08:12)
[2021-08-04] MEDS: lisinopriL 5 MG TABLET PO (08:12)
[2021-08-04] MEDS: Aspirin Enteric Coated 81 MG TABLET.DR PO (08:12)
[2021-08-04] MEDS: Metoprolol Succinate ER 25 MG TAB.ER.24H PO (08:35)
[2021-08-04 11:00] VITALS: BP 115/70; PULSE 62; RESP 12; TEMP 36.9; O2SAT 96
--- NOTE | 2021-08-04 12:29 | MHC.CM.PN ---
PATIENT LIVES WITH HIS . HCP ON FILE, COPIED, AND PLACED IN CHART HE DENIES ANY NEED FOR [facility]NA OR OUTSIDE SERVICES AND WANTS TO GO HOME TODAY. SIMPSON 08/04 SIGNED AND COPY PLACED IN CHART.
--- NOTE | 2021-08-04 12:29 | MHC.STROKE ---
I MET WITH PATIENT YESTERDAY UPON ARRIVAL AND AGAIN TODAY. NO REPEAT SYMPTOMS. I PROVIDED STROKE EDUCATION AND EXPLAINED THE PLAN OF CARE. HE IS HAVING A MRI AT 1230 AND EEG AT 1330. HE UNDERSTANDS WHY HE NEEDS THIS AND IS WILLING TO STAY. HE IS VERY UNGA AND I DID EXPLAIN EVERYTHING VERY SLOWLY. HE IS KNOWN TO THE STROKE SERVICE FROM HIS PRIOR STROKE WITH TPA IN OCTOBER 2020 AND CEA 07/18/21.
--- NOTE | 2021-08-04 13:17 | PC.NURSE ---
Pt to MRI with Keshawn RN at 1245. Plan for EEG on Tele Monitor after MRI.
--- NOTE | 2021-08-04 14:42 | P.CNNE_ITS ---
History of Present Illness Data of Consult Service Date: 08/04/21 Primary Care Provider: Alejandra Howell NP HPI Reason for consult: Episode of unresponsive 81 years old man with underlying history of stroke and carotid end arterectomy was noted to be unresponsive while sitting at home. He was noted to be staring in space. Apparently before that he complained of being dizzy and lightheaded. This lasted for few seconds to a minute. There was no obvious convulsion. He did not have any recollection of this event. Review of Systems Review of Systems: No recent cold or flu-like illness PMFSH Past Medical History Medical History Abnormal echocardiogram Ambulates with cane Arthritis BPH (benign prostatic hyperplasia) Cerebrovascular accident COPD (chronic obstructive pulmonary disease) COVID-19 vaccine series completed CVA (cerebrovascular accident) GUEVARA (dyspnea on exertion) Essential hypertension Hard of hearing History of acute inferior wall myocardial infarction History of smoking at least 1 pack per day for at least 30 years Hyperlipidemia Ischemic cardiomyopathy Low back pain Nasal congestion Near syncope 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 Right bundle branch block Family History Family History Other CAD (coronary artery disease) Surgical History Surgical History H/O foot surgery H/O heart artery stent Previous back surgery S/P cardiac catheterization Social History Social History Household Members: Spouse Housing: House Are you a primary care management associate to a significant other at home: No Do you presently have visiting nurse or other home services: No Alcohol intake: never Patient Tobacco Use Status: Former Tobacco user Quit Date: 2015 Tobacco use type: Cigarette Cigarette Packs Per Day: 1 Cigarettes Per Day: 20.0 Years Smoked: 30 e-Cigarette/Vaping Use: Former Use Use of substances other than those prescribed or required for medical reasons: No Advance Directives: Yes Advance Directives on File: Yes Advance Directives Date on File: 07/18/21 service: Yes Current occupational status: retired Meds Allergies Allergy/AdvReac Type Severity Reaction Status Date / Time bee pollen [bee stings] Allergy Severe Anaphylaxis Verified 07/18/21 07:12 Active Medications: Current Medications Acetaminophen (Acetaminophen 325 Mg Tablet) 650 mg PO Q6H PRN PRN Reason: Pain, Mild (Pain Scale 1-3) Aspirin (Aspirin Enteric Coated 81 Mg Tablet.Dr) 81 mg PO DAILY [facility] Last Admin: 08/04/21 08:12 Dose: 81 mg Documented by: Atorvastatin Calcium (Atorvastatin Calcium 80 Mg Tablet) 80 mg PO BEDTIME [facility] Last Admin: 08/03/21 23:12 Dose: 80 mg Documented by: Clopidogrel Bisulfate (Clopidogrel Bisulfate 75 Mg Tablet) 75 mg PO DAILY [facility] Last Admin: 08/04/21 08:12 Dose: 75 mg Documented by: Docusate Sodium (Docusate Sodium 100 Mg Capsule) 100 mg PO DAILY PRN PRN Reason: Constipation Isosorbide Mononitrate (Isosorbide Mononitrate 30 Mg Tab.Er.24h) 30 mg PO DAILY [facility]; Protocol Last Admin: 08/04/21 08:11 Dose: 30 mg Documented by: Latanoprost (Latanoprost 0.005 % Ophth Mikala 2.5 Ml Drops) 1 drop EYE-BOTH BEDTIME [facility] Last Admin: 08/03/21 23:12 Dose: Not Given Documented by: Lisinopril (Lisinopril 5 Mg Tablet) 5 mg PO DAILY [facility]; Protocol Last Admin: 08/04/21 08:12 Dose: 5 mg Documented by: Loratadine (Loratadine 10 Mg Tablet) 10 mg PO BEDTIME PRN PRN Reason: Allergy Symptoms Metoprolol Succinate (Metoprolol Succinate Er 25 Mg Tab.Er.24h) 25 mg PO DAILY [facility]; Protocol Last Admin: 08/04/21 08:35 Dose: 25 mg Documented by: Ondansetron HCl (Ondansetron Hcl 4 Mg/2 Ml Vial) 4 mg IVPUSH Q8H PRN PRN Reason: Nausea and Vomiting Sodium Chloride (0.9 % Sodium Chloride Flush 3 Ml Syringe) 3 ml IVFLUSH QSHIFT [facility] Last Admin: 08/04/21 08:12 Dose: 3 ml Documented by: Tamsulosin HCl (Tamsulosin Hcl 0.4 Mg Capsule) 0.4 mg PO BEDTIME [facility] Last Admin: 08/03/21 23:12 Dose: 0.4 mg Documented by: Home Medications Medication Instructions Recorded Confirmed Last Taken Type tamsulosin 0.4 mg capsule 0.4 mg PO BEDTIME 06/20/20 08/03/21 08/02/21 History cetirizine 10 mg capsule 10 mg PO BEDTIME PRN 11/19/20 08/03/21 08/02/21 History metoprolol succinate 25 mg 25 mg PO DAILY 02/10/21 08/03/21 08/03/21 History tablet,extended release 24 hr atorvastatin 80 mg tablet 80 mg PO BEDTIME 02/22/21 08/03/21 08/02/21 History latanoprost 0.005 % eye drops 1 drp OPHTHALMIC (EYE) BEDTIME 02/22/21 08/03/21 08/02/21 History Physical Exam Vital Signs: Vital Signs: Last Vital Signs Temp 98.4 F 08/04/21 11:00 Pulse 62 08/04/21 11:00 Resp 12 08/04/21 11:00 BP 115/70 08/04/21 11:00 Pulse Ox 96 08/04/21 11:00 BMI result Body Mass Index 25.8 Neuro: Other: he was alert and awake with normal spontaneity of speech fluency comprehension and affect. Face was symmetrical. Visual dickens are full. There was no obvious focal weakness. He was having his lunch when I saw him. Results Labs CBC & Chem 7: 08/04/21 06:54 08/04/21 06:54 Labs: Short CBC 08/03/21 08/04/21 Range/Units 15:37 06:54 WBC 10.4 6.9 (4.8-10.8) X10*3/uL Hgb 11.4 L 10.8 L (14.0-18.0) g/dl Hct 34.7 L 32.5 L (42.0-52.0) % Plt Count 311 D 294 (160-400) X10*3/uL BMP 08/03/21 08/04/21 15:37 06:54 Sodium 138 138 Potassium 4.8 D 3.8 D Chloride 106 107 Carbon Dioxide 29 25 BUN 10 11 Creatinine 1.06 1.00 Calcium 9.0 D 8.5 Liver Function 08/03/21 Range/Units 15:37 Total Bilirubin 0.7 (0.0-1.0) mg/dL Direct Bilirubin 0.3 (0.0-0.5) mg/dL AST 18 (5-37) U/L ALT 15 (0-40) U/L Alkaline Phosphatase 106 (39-117) U/L Albumin 3.7 (3.5-5.0) g/dL Noncontrast MRI did not reveal any acute abnormality. Mild cerebral atrophy and moderate chronic microvascular ischemic changes were noted. An EEG revealed mild slowing but no seizure disorder per Assessment and Plan (1) Complex partial seizure disorder: Status: Acute this episode was probably caused by complex partial seizure though EEG was negative. If no other explanation is found for this event, I suggest starting him on levetiracetam 250 mg 1 at night. Procedures Date of Service Date of Service: 08/04/21
[2021-08-04 15:34] VITALS: BP 172/56; PULSE 68; RESP 18; TEMP 36.3; O2SAT 97
--- NOTE | 2021-08-04 15:52 | P.DS_ITS ---
DS: Providers Provider Date of Service: 08/04/21 Date of admission: 08/03/21 22:09 Date of discharge: 08/04/21 Primary care physician: Alejandra Howell NP Consults: 08/03/21 22:34 Consult to Neurology Routine Consulting Provider: [facility] Reason for consultation: TIA vs seizure Has provider been notified: No 08/04/21 06:09 Consult to Vascular Surgery Routine Consulting Provider: Loc Cabrera Reason for consultation: known to you, vertebral artery occlulsion Has provider been notified: No Attending physician on discharge: Michael Hays Discharging clinician: Eugenia Henderson DS: Diagnosis Discharge Diagnosis (1) Complex partial seizure disorder: Status: Acute DS: Summary Hospital Course Hospital Course: From H&P on day of admission this is an 81-year-old male with significant past medical history that includes CVA who most recently in October requiring tPA, COPD, peripheral artery disease status post right carotid endarterectomy 2 weeks ago, history of CHF, CAD, BPH, HTN, HLD among others who presents to the hospital with complaints of a transient episode of lucidness.? Patient reports that he was at his? kitchen table eating when all of a sudden he felt significantly hot, flushed, started sweating, and felt like he went to sleep.? He could hear his calling him but he did not have the desire to respond like he was sleeping and did not want to be bothered.? He is unsure how long this lasted, according to his he was staring in the void with his eyes open but no responding to her and seen no acute did not see her.? Patient? was in this lucid trans 0.0 arrival of EMS, he returned to normal spontaneously, he felt confused for few seconds but reports no seizure-like activity, no postictal symptoms. ?he otherwise denies having any chest pain, no palpitations, no headache or change in vision, no numbness tingling or weakness in his arms or legs,? no shortness of breath, no abdominal pain nausea or vomiting, no diarrhea constipation, no urinary symptoms and no lower extremity edema.? On arrival to the ED patient's vitals were unremarkable Labs are significant for WBC count of 10.4, hemoglobin of 11.0, otherwise unremarkable Head and neck CT angiogram showed changes of recent right-sided carotid enterectomy, associated ectatic projection along the anterior aspect of the endarterectomy side suggestive of pseudoaneurysm, 40% irregular narrowing of the proximal right ICA.? atherosclerotic disease causes 65% stenosis of the origin of the left subclavian artery, there is? 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 He was admitted to the observation unit and had no further episodes. He underwent MRI of the brain which showed numerous chronic small-vessel ischemic changes primarily involving the periventricular white matter and calvin. No evidence of acute territorial infarct or hemorrhage. He had EEG which showed mild slowing but no evidence of seizure disorder per se. He was evaluated by Neurology felt that his episode may have been caused by a complex partial seizure. He recommended starting low- dose Keppra 250 mg once daily. This was discussed with both the patient at bedside and with his over the phone. He should call to schedule follow-up appointment with Neurology as well as PCP. New was verbally discussed with him that he should avoid driving, swimming, bathing alone, etc until he has follow- up with Neurology. Time Spent with Patient Time attestation: Total time spent providing and/or coordinating discharge services: Discharge coordination time: Greater than 30 minutes Quality: Stroke Does the patient have a stroke diagnosis?: No Physical Exam Vital Signs: Vital Signs: Last Vital Signs Temp 97.4 F 08/04/21 15:34 Pulse 68 08/04/21 15:34 Resp 18 08/04/21 15:34 BP 172/56 H 08/04/21 15:34 Pulse Ox 97 08/04/21 15:34 BMI result Body Mass Index 25.8 DS: Data Data Completed and Pending Completed studies during hospitalization [Text1]: Procedures Extirpation of Matter from Right Common Carotid Artery, Open Approach (07/18/21) Extirpation of Matter from Right Internal Carotid Artery, Open Approach (07/18/21) Introduction of Other Thrombolytic into Peripheral Vein, Percutaneous Approach (10/10/20) Supplement Right Common Carotid Artery with Synthetic Substitute, Open Approach (07/18/21) Supplement Right Internal Carotid Artery with Synthetic Substitute, Open Approach (07/18/21) Labs on day of discharge: Laboratory Results - last 24 hr 08/03/21 08/03/21 08/03/21 15:37 15:37 15:37 WBC 10.4 RBC 3.70 L Hgb 11.4 L Hct 34.7 L MCV 93.8 MCH 30.8 MCHC 32.9 RDW 13.3 Plt Count 311 D MPV 9.1 L Immature Gran % (Auto) 0.5 H Neut % (Auto) 83.4 H Lymph % (Auto) 7.7 L [place] % (Auto) 6.4 Eos % (Auto) 1.4 Baso % (Auto) 0.6 Lymph # (Auto) 0.8 L [place] # (Auto) 0.7 Eos # (Auto) 0.2 Baso # (Auto) 0.1 Abs Immat Gran (auto) 0.05 H Absolute Neuts (auto) 8.7 H Absolute Nucleated RBC 0.000 Nucleated RBC % (auto) 0.0 Sodium 138 Potassium 4.8 D Chloride 106 Carbon Dioxide 29 Anion Gap 8 L BUN 10 Creatinine 1.06 Estim Creat Clear Calc 54.5 Estimated GFR > 60 Random Glucose 97 Calcium 9.0 D Total Bilirubin 0.7 Direct Bilirubin 0.3 AST 18 ALT 15 Alkaline Phosphatase 106 Troponin I High Sens 22.3 Total Protein 6.5 Albumin 3.7 COVID-19 ([facility]) COVID-19 Clin Com 08/03/21 08/04/21 08/04/21 21:59 06:54 06:54 WBC 6.9 RBC 3.52 L Hgb 10.8 L Hct 32.5 L MCV 92.3 MCH 30.7 MCHC 33.2 RDW 13.7 Plt Count 294 MPV 9.4 Immature Gran % (Auto) 0.1 Neut % (Auto) 67.6 Lymph % (Auto) 18.6 L [place] % (Auto) 9.7 Eos % (Auto) 3.3 Baso % (Auto) 0.7 Lymph # (Auto) 1.3 [place] # (Auto) 0.7 Eos # (Auto) 0.2 Baso # (Auto) 0.1 Abs Immat Gran (auto) 0.01 Absolute Neuts (auto) 4.7 Absolute Nucleated RBC 0.000 Nucleated RBC % (auto) 0.0 Sodium 138 Potassium 3.8 D Chloride 107 Carbon Dioxide 25 Anion Gap 11 L BUN 11 Creatinine 1.00 Estim Creat Clear Calc 57.7 Estimated GFR > 60 Random Glucose 107 Calcium 8.5 Total Bilirubin Direct Bilirubin AST ALT Alkaline Phosphatase Troponin I High Sens Total Protein Albumin COVID-19 ([facility]) Negative COVID-19 Clin Com See Note Discharge Plan Discharge Patient Disposition: Home, Self-Care Discharge Diagnosis: complex partial seizure Referrals: Woo Ibanez MD [Physician] - 2 Weeks Alejandra Howell NP [Primary Care Provider] - 1 Week Discharge Medications: New levetiracetam [Keppra] 250 mg tablet 250 mg PO BEDTIME 30 Days Qty: 30 RF: 0 Continued lisinopril 5 mg tablet 5 mg PO DAILY Qty: 30 RF: 5 clopidogrel [Plavix] 75 mg tablet 75 mg PO DAILY Qty: 90 RF: 1 tamsulosin 0.4 mg Capsule 0.4 mg PO BEDTIME RF: 0 atorvastatin 80 mg Tablet 80 mg PO BEDTIME RF: 0 latanoprost 0.005 % drops 1 drp ophthalmic (eye) BEDTIME RF: 0 aspirin 81 mg Tablet,Delayed Release (Dr/Ec) 81 mg PO DAILY Qty: 90 RF: 1 cetirizine 10 mg capsule 10 mg PO BEDTIME PRN (Reason: Allergy Symptoms) RF: 0 metoprolol succinate 25 mg tablet extended release 24 hr 25 mg PO DAILY RF: 0 isosorbide mononitrate 30 mg tablet extended release 24 hr 30 mg PO DAILY Qty: 90 RF: 1 Discharge Orders: Discharge Order (Routine); Ordered 08/04/21 Ordered By: Eugenia Henderson Diet: advance to usual diet Activity on Discharge: As tolerated Stand Alone Forms: Patient Portal Discharge page Care Plan Goals: prevent future complex parial seizures Health Concerns: possible complex partial seizure Plan of Treatment: The neurologist has recommended to start a medication to prevent seizures called haiderra, please take as prescribed. Call to schedule a follow up appointment with your PCP and with the neurologist you should not drive, swim or bathe alone at least until you follow up with neurologist Assessment: episode of unresponsiveness secondary to possible complex partial seizure
--- NOTE | 2021-08-04 15:53 | PC.NURSE ---
Pt A&Ox3, ambulates with walker independently. No complaints of pain at this time, would like to be DC'd home. Awaiting MD reeval at this time, will continue to monitor.
--- NOTE | 2021-08-04 15:54 | MHC.CM.PN ---
PATIENT IS DISCHARGED HOME - SELF CARE RN AWARE OF PLAN.
--- NOTE | 2021-08-04 16:09 | P.CONGS_ITS ---
History of Present Illness Consult details Consult date: 08/04/21 Narrative: Very pleasant 81-year-old gentleman status post right carotid endarterectomy. He has had no interval issues until yesterday. He reportedly had this dizzy spell. He reports that he may have been hypoglycemic as he had not eaten for a period of time. He now presents for vascular evaluation. Review of Systems Review of Systems: Yes all other systems are reviewed and are negative Constitutional: Constitutional: Reports no additional constitutional complaints ENT: Reports Normal hearing present Cardiovascular: Cardiovascular: Denies chest pain, Denies chest pain at rest, Denies chest pain with activity and Denies pedal edema Respiratory: Respiratory: Denies cough Gastrointestinal: Gastrointestinal: Denies abdominal pain Musculoskeletal: Musculoskeletal: Denies abnormal gait, Denies muscle cramps and Denies radiating pain into limb Integumentary/Breasts: Skin/Breast: Denies skin ulcer and Denies wounds Neurologic: Reports Normal hearing present and Denies abnormal gait Psychiatric: Psychiatric: Reports no additional psychiatric complaints PMFSH Past Medical History Medical History Abnormal echocardiogram Ambulates with cane Arthritis BPH (benign prostatic hyperplasia) Cerebrovascular accident COPD (chronic obstructive pulmonary disease) COVID-19 vaccine series completed CVA (cerebrovascular accident) GUEVARA (dyspnea on exertion) Essential hypertension Hard of hearing History of acute inferior wall myocardial infarction History of smoking at least 1 pack per day for at least 30 years Hyperlipidemia Ischemic cardiomyopathy Low back pain Nasal congestion Near syncope 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 Right bundle branch block Family History Family History Other CAD (coronary artery disease) Surgical History Surgical History H/O foot surgery H/O heart artery stent Previous back surgery S/P cardiac catheterization Social History Social History Household Members: Spouse Housing: House Are you a primary director of career services to a significant other at home: No Do you presently have visiting nurse or other home services: No Alcohol intake: never Patient Tobacco Use Status: Former Tobacco user Quit Date: 2015 Tobacco use type: Cigarette Cigarette Packs Per Day: 1 Cigarettes Per Day: 20.0 Years Smoked: 30 e-Cigarette/Vaping Use: Former Use Advance Directives Date on File: 07/18/21 service: Yes Current occupational status: retired Meds Allergies Allergy/AdvReac Type Severity Reaction Status Date / Time bee pollen [bee stings] Allergy Severe Anaphylaxis Verified 07/18/21 07:12 Active Medications: Current Medications Acetaminophen (Acetaminophen 325 Mg Tablet) 650 mg PO Q6H PRN PRN Reason: Pain, Mild (Pain Scale 1-3) Aspirin (Aspirin Enteric Coated 81 Mg Tablet.Dr) 81 mg PO DAILY [facility] Last Admin: 08/04/21 08:12 Dose: 81 mg Documented by: Atorvastatin Calcium (Atorvastatin Calcium 80 Mg Tablet) 80 mg PO BEDTIME [facility] Last Admin: 08/03/21 23:12 Dose: 80 mg Documented by: Clopidogrel Bisulfate (Clopidogrel Bisulfate 75 Mg Tablet) 75 mg PO DAILY [facility] Last Admin: 08/04/21 08:12 Dose: 75 mg Documented by: Docusate Sodium (Docusate Sodium 100 Mg Capsule) 100 mg PO DAILY PRN PRN Reason: Constipation Isosorbide Mononitrate (Isosorbide Mononitrate 30 Mg Tab.Er.24h) 30 mg PO DAILY [facility]; Protocol Last Admin: 08/04/21 08:11 Dose: 30 mg Documented by: Latanoprost (Latanoprost 0.005 % Ophth Mikala 2.5 Ml Drops) 1 drop EYE-BOTH BEDTIM E [facility] Last Admin: 08/03/21 23:12 Dose: Not Given Documented by: Lisinopril (Lisinopril 5 Mg Tablet) 5 mg PO DAILY [facility]; Protocol Last Admin: 08/04/21 08:12 Dose: 5 mg Documented by: Loratadine (Loratadine 10 Mg Tablet) 10 mg PO BEDTIME PRN PRN Reason: Allergy Symptoms Metoprolol Succinate (Metoprolol Succinate Er 25 Mg Tab.Er.24h) 25 mg PO DAILY [facility]; Protocol Last Admin: 08/04/21 08:35 Dose: 25 mg Documented by: Ondansetron HCl (Ondansetron Hcl 4 Mg/2 Ml Vial) 4 mg IVPUSH Q8H PRN PRN Reason: Nausea and Vomiting Sodium Chloride (0.9 % Sodium Chloride Flush 3 Ml Syringe) 3 ml IVFLUSH QSHIFT [facility] Last Admin: 08/04/21 08:12 Dose: 3 ml Documented by: Tamsulosin HCl (Tamsulosin Hcl 0.4 Mg Capsule) 0.4 mg PO BEDTIME MARCELLA Last Admin: 08/03/21 23:12 Dose: 0.4 mg Documented by: Home Medications Medication Instructions Recorded Confirmed Last Taken Type tamsulosin 0.4 mg capsule 0.4 mg PO BEDTIME 06/20/20 08/03/21 08/02/21 History cetirizine 10 mg capsule 10 mg PO BEDTIME PRN 11/19/20 08/03/21 08/02/21 History metoprolol succinate 25 mg 25 mg PO DAILY 02/10/21 08/03/21 08/03/21 History tablet,extended release 24 hr atorvastatin 80 mg tablet 80 mg PO BEDTIME 02/22/21 08/03/21 08/02/21 History latanoprost 0.005 % eye drops 1 drp OPHTHALMIC (EYE) BEDTIME 02/22/21 08/03/21 08/02/21 History Physical Exam Vital Signs: Vital Signs: Last Vital Signs Temp 97.4 F 08/04/21 15:34 Pulse 68 08/04/21 15:34 Resp 18 08/04/21 15:34 BP 172/56 H 08/04/21 15:34 Pulse Ox 97 08/04/21 15:34 BMI result Body Mass Index 25.8 Const: General: cooperative, healthy appearing and comfortable Orientation/consciousness: oriented to person, oriented to place and oriented to time HENMT: Head: Yes normal to inspection Neck: Neck: Yes normal visual inspection Carotids: no bruits Chest: Chest palpation & inspection: normal inspection of the chest Resp: Effort & Inspection: normal respiratory effort and able to speak in complete sentences Auscultation: clear to auscultation bilaterally, no crackles, no rales, no rhonchi and no wheezes Cardio: Rate: regular rate Rhythm: regular rhythm Heart sounds: S1 normal heart sound present and S2 normal heart sound present Bruits: no carotid bruits Peripheral pulses: Peripheral pulses 2+ throughout GI: Inspection: Yes normal to inspection Skin: Other: Right neck incision well healed Wounds: no wounds Hair: normal Neuro: General: oriented to person, oriented to place and oriented to time Cranial nerves: Yes CN's II-XII intact bilaterally and Yes Normal hearing present Cognition (Neuro): normal cognition Motor exam (neuro): 5/5 motor strength present throughout Extrem: Other: venous exam: No significant superficial varicosities or spider telangiectasias, minimal edema General: No clubbing, No cyanosis and No edema Psych: Appearance: grossly normal Mental Status: mental status grossly normal Speech and movement: Normal speech and movement present Results Labs Result diagrams: 08/04/21 06:54 08/04/21 06:54 Labs: Abnormal lab results 08/04/21 08/04/21 Range/Units 06:54 06:54 RBC 3.52 L (4.60-5.80) X10*6/uL Hgb 10.8 L (14.0-18.0) g/dl Hct 32.5 L (42.0-52.0) % Lymph % (Auto) 18.6 L (20-40) % Anion Gap 11 L (12-20) Short CBC 08/04/21 Range/Units 06:54 WBC 6.9 (4.8-10.8) X10*3/uL Hgb 10.8 L (14.0-18.0) g/dl Hct 32.5 L (42.0-52.0) % Plt Count 294 (160-400) X10*3/uL BMP 08/04/21 06:54 Sodium 138 Potassium 3.8 D Chloride 107 Carbon Dioxide 25 BUN 11 Creatinine 1.00 Calcium 8.5 All other labs normal. Assessment and Plan (1) Stenosis of right internal carotid artery: Status: Acute In short patient appears to be stable from a carotid standpoint. CT chanel ogram was reviewed and appears to be within normal limits. I do believe that this is more postoperative changes in no evidence of pseudoaneurysm. Neurology note appreciated and he may have a complex partial seizure. He has been started on medications for that. He is stable from my perspective. He was actually scheduled for postoperative follow-up today but appears to be stable. Upon discharge he can see me within 2-3 weeks. Thank you for allowing us to assist in his care. If there are any questions or concerns please do not hesitate to contact us. Procedures Date of Service Date of Service: 08/04/21
== END 2021-08-04 16:17 | disposition home or self-care (01) ==
LOC: HO.ED 21:45 → HO.EDOVER 22:18
PROVIDERS: Admitting Provider Internal Medicine; Emergency Provider Emergency Medicine; PCP Nurse Practitioner Family; Visit Provider Physician Assistant Medical
DX: I65.21 Occlusion and stenosis of right carotid artery (principal); G40.209 Localization-related (focal) (partial) symptomatic epilepsy and epileptic syndromes with complex partial seizures, not intractable, without status epilepticus; R40.4 Transient alteration of awareness; I25.5 Ischemic cardiomyopathy; I25.10 Atherosclerotic heart disease of native coronary artery without angina pectoris; I25.2 Old myocardial infarction; I10 Essential (primary) hypertension; I45.10 Unspecified right bundle-branch block; E78.00 Pure hypercholesterolemia, unspecified; E78.5 Hyperlipidemia, unspecified; J43.2 Centrilobular emphysema; R94.31 Abnormal electrocardiogram [ECG] [EKG]; Z87.891 Personal history of nicotine dependence; Z20.822 Contact with and (suspected) exposure to COVID-19; Z86.73 Personal history of transient ischemic attack (TIA), and cerebral infarction without residual deficits; Z48.812 Encounter for surgical aftercare following surgery on the circulatory system; Z95.5 Presence of coronary angioplasty implant and graft; Z98.890 Other specified postprocedural states; Z91.030 Bee allergy status; Z79.1 Long term (current) use of non-steroidal anti-inflammatories (NSAID); Z79.899 Other long term (current) drug therapy
CPT/HCPCS: 36415; 70450; 70496; 70498; 70551; 80048; 80076; 84484; 85025; 87635; 93005; 95816; 99219; 99285; Q9967

== ENCOUNTER → 2021-09-01 11:06 | Outpatient (BNVA) | payer MEDICARE, OTHER, SELFPAY | PROVIDERS: PCP Nurse Practitioner Family; Visit Provider Surgery Vascular Surgery | DX: I65.21 Occlusion and stenosis of right carotid artery (principal); F17.210 Nicotine dependence, cigarettes, uncomplicated | CPT/HCPCS: 99212 ==

== ENCOUNTER → 2021-10-03 13:41 | Outpatient (BNVA) | payer OTHER, MEDICARE, SELFPAY | PROVIDERS: PCP Nurse Practitioner Family; Referring Provider Nurse Practitioner Family; Visit Provider Internal Medicine | DX: I25.10 Atherosclerotic heart disease of native coronary artery without angina pectoris (principal); I25.5 Ischemic cardiomyopathy; Z79.899 Other long term (current) drug therapy; Z86.79 Personal history of other diseases of the circulatory system | CPT/HCPCS: 99212 ==

== ENCOUNTER → 2021-11-25 07:31 | Outpatient (REF) | payer MEDICARE, SELFPAY ==
--- NOTE | 2021-11-25 07:44 | CA_ITS ---
Transthoracic Echocardiogram Patient (Last, First, Middle): Mikie Paul L Gender: Male Date of : 1940 Age: 81 Procedure Date: 11/25/2021 Procedure Type: Transthoracic Echocardiogram Location: OP Height: 177.8 cm Weight: 78.93 kg BSA: 1.97 m2 Heart Rate: bpm BP: 175 / 80 mmHg Mobile Unit Assistant: BALJIT Referring MD: Christopher Carmona MD Symptoms: I25.5 - Ischemic cardiomyopathy Study Quality: Fair Conclusions: - 1. Moderate LV systolic dysfunction with LVEF of 35-40% with impaired relaxation filling pattern and elevated filling pressures with underlying regional wall motion abnormality consistent with ischemic cardiomyopathy 2. At least mildly dilated left atrium 3. Mild mitral regurgitation 4. No gross pericardial effusion Findings Left Ventricle Normal left ventricular cavity size. There is normal left ventricular wall thickness. The left ventricular systolic function is moderately decreased. The visually estimated ejection fraction is between 35-40%. There is evidence of regional wall motion abnormalities. There is moderate global hypokinesis. Spectral Doppler is indicative of an impaired relaxation filling pattern. Elevated filling pressures. E/E prime ratio is >15, consistent with elevated filling pressures. Wall Motion Rest Echo Findings The inferolateral wall and basal anterolateral segment are hypokinetic. The inferoseptal wall and inferior wall are akinetic. All other scored wall segments showed normal motion. Right Ventricle Normal right ventricular cavity size and systolic function. Atria The left atrium is mildly dilated. There is no evidence of interatrial shunt. The right atrium is likely dilated. Aortic Valve There is mild calcification of the aortic valve. There is no aortic valve stenosis. There is no aortic valve regurgitation. Mitral Valve There is mild anterior and posterior mitral leaflet thickening. There is mild mitral annular calcification. There is mild mitral valve regurgitation. There is no mitral valve stenosis. Pulmonic Valve The pulmonic valve was not well visualized. Tricuspid Valve Likely normal tricuspid valve structure and function. Tricuspid regurgitation envelope is inadequate for calculation of right ventricular systolic pressure. Great Vessels All visible segments of the aorta are normal in size. The pulmonary artery was not well visualized. Venous The inferior vena cava is normal in size and collapses greater than 50% with inspiration. Pericardium/Pleural There is no evidence of pericardial effusion. Prior Study Comparison No significant change compared to prior study dated: 05/12/2021. Measurements 2D Linear Measurements IVSd: 0.88 0.6-0.9/0.6-1.0 cm LVIDd: 5.60 3.9-5.3/4.2-5.9 cm LVIDd Index: 2.84 2.4-3.2/2.2-3.1 cm/m2 LVIDs: 4.73 2.0-3.6 cm LVPWd: 0.94 0.7-1.1 cm LA Diam: 4.10 2.7-3.8/3.0-4.0 cm LAIDs Index: 2.08 1.5-2.3 cm/m2 LV Mass: 241.02 67-162/88-224 g LV Mass Index: 122.34 43-95/49-115 g/m2 LVOT Diam: 2.00 3.0+(-)1.3 cm 2D Systolic Function EF 4C: 42.60 >55% EF 2C: 36.70 >55% EF BiP: 39.90 >55% Mitral Valve MV Pk E: 0.85 MV PK A: 1.16 MV Decel Time: 222.00 E/A: 0.70 E'Lateral: 5.55 E'Medial: 4.03 E/E' Med: 21.00 E/E' Lat: 15.20 PHT: 65.00 MVA PHT: 3.38 Decel Mora: 3.81 Aortic Valve AoV Pk Esau: 1.47 AoV Mn Esau: 1.12 AoV VTI: 0.41 AoV Pk Grad: 9.00 Aov Mn Grad: 5.00 SIDNEY Cont.VTI: 1.82 LVOT LVOT Pk Esau: 1.02 LVOT Mn Esau: 0.66 LVOT VTI: 0.24 LVOT Pk Grad: 4.00 LVOT Mn Grad: 2.00 LVOT Diam: 2.00 LVOT Area: 3.14 Diastolic Function MV Pk E: 0.85 MV Pk A: 1.16 E/A: 0.70 E'Medial: 4.03 E/E' Med: 21.00 E' Laterial: 5.55 E/E' Lat: 15.20 Right Ventricle TAPSE (mm): 20.30 TVS' Esau: 9.03 Tricuspid Valve RA Press: 3.00 Great Vessels Aorta Sinus of Valsalva: 3.61 2.0-3.[address] Ridge: 2.99 1.7-3.4 cm Ao Asc: 3.60 2.1-3.4 cm Ao Arch: 3.00 Updated in Other Vendor System with Status of Final Lorenzo Lancaster MD electronically signed on 11/26/2021 1:15:26 PM with status of Final
== END ==
LOC: HO.CARD 07:31
PROVIDERS: Visit Provider Internal Medicine
DX: I25.5 Ischemic cardiomyopathy (principal)
CPT/HCPCS: 93306

== ENCOUNTER 2021-11-29 14:35 | Emergency (ER) | payer OTHER, MEDICARE, SELFPAY ==
[2021-11-29 14:38] VITALS: BP 162/84; PULSE 76; RESP 18; TEMP 37.1; O2SAT 96; BMI 25.0
--- NOTE | 2021-11-29 15:15 | ED_ITS ---
History of Present Illness General Chief Complaint: Epistaxis Stated Complaint: nose bleed Time Seen by Provider: 11/29/21 15:14 Source: patient and family Mode of arrival: ambulatory Limitations: no limitations History of Present Illness HPI Narrative: 81-year-old male presents emergency department for epistaxis. Patient has been to the emergency department 2 other times with bleeding he has been cauterized and sent home. Patient states he woke around 7 noticed bleeding he denies any falls or injury he is on aspirin and Plavix. He denies chest pain cough fever Location: Yes right nares Related Data Home Medications Medication Instructions Recorded Confirmed tamsulosin 0.4 mg capsule 0.4 mg PO BEDTIME 06/20/20 10/03/21 cetirizine 10 mg capsule 10 mg PO BEDTIME PRN 11/19/20 10/03/21 metoprolol succinate 25 mg 25 mg PO DAILY 02/10/21 10/03/21 tablet,extended release 24 hr atorvastatin 80 mg tablet 80 mg PO BEDTIME 02/22/21 10/03/21 latanoprost 0.005 % eye drops 1 drp OPHTHALMIC (EYE) BEDTIME 02/22/21 10/03/21 Previous Rx's Medication Instructions Recorded aspirin 81 mg tablet,delayed 81 mg PO DAILY #90 tab 10/11/20 release lisinopril 5 mg tablet 5 mg PO DAILY #30 tab 10/27/20 clopidogrel 75 mg tablet (Plavix) 75 mg PO DAILY #90 tab 12/03/20 isosorbide mononitrate 30 mg 30 mg PO DAILY #90 tab 02/10/21 tablet,extended release 24 hr levetiracetam 250 mg tablet 250 mg PO BEDTIME 30 Days #30 tab 08/04/21 (Keppra) Allergies Allergy/AdvReac Type Severity Reaction Status Date / Time bee pollen [bee stings] Allergy Severe Anaphylaxis Verified 11/29/21 14:38 Review of Systems Review of Systems: Review of systems: General: Patient denies any fever chills recent illness or falls Musculoskeletal: Denies back pain or body aches or other injuries HEENT: Epistaxis right nares denies headache, runny nose, ear pain Respiratory: denies shortness of breath, cough Cardiovascular: no chest pain or palpitations : denies dysuria, frequency Abdomen: no nausea vomiting denies abdominal pain Extremities: no swelling, no pain Skin: no diaphoresis Yes all other systems are reviewed and are negative PMFSH Past Medical History Medical History Abnormal echocardiogram Ambulates with cane Arthritis BPH (benign prostatic hyperplasia) Cerebrovascular accident COPD (chronic obstructive pulmonary disease) COVID-19 vaccine series completed CVA (cerebrovascular accident) GUEVARA (dyspnea on exertion) Essential hypertension Hard of hearing History of acute inferior wall myocardial infarction History of smoking at least 1 pack per day for at least 30 years Hyperlipidemia Ischemic cardiomyopathy Low back pain Nasal congestion Near syncope 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 Right bundle branch block Surgical History H/O foot surgery H/O heart artery stent Previous back surgery S/P cardiac catheterization Family History Family History Other CAD (coronary artery disease) Social History Social History Household Members: Spouse Housing: House Are you a primary respiratory care technician to a significant other at home: No Do you presently have visiting nurse or other home services: No Alcohol intake: never Patient Tobacco Use Status: Former Tobacco user Quit Date: 2015 Tobacco use type: Cigarette Cigarette Packs Per Day: 1 Cigarettes Per Day: 20.0 Years Smoked: 30 e-Cigarette/Vaping Use: Former Use Advance Directives: Yes Advance Directives on File: Yes Advance Directives Date on File: 07/18/21 service: Yes Current occupational status: retired Physical Exam Vital Signs: Vital Signs: Last Vital Signs Temp 97.9 F 11/29/21 16:10 Pulse 65 11/29/21 16:10 Resp 18 11/29/21 16:10 BP 155/70 H 11/29/21 16:10 Pulse Ox 97 11/29/21 16:10 BMI result Body Mass Index 25.0 General: Well-appearing well-nourished in no signs of distress with multiple tissues pain at the side is nose with clamp on HEENT: Normocephalic atraumatic epistaxis complaint place I did take the clamp off was able to visualize small amount of oozing from the right air anteriorly Neck: No signs of JVD, no masses no tenderness or lymphadenopathy Cardiovascular: Regular rate and rhythm Respiratory: Clear to auscultation bilaterally Abdomen: Soft nontender no masses Extremities: Normal pedal pulses no signs of edema Skin: Dry warm no rashes Back: No tenderness full ROM MDM - Epistaxis MDM Narrative Medical decision making narrative: Epistaxis to the right nares concerned that he could be weak due to bleeding for 10 hours amount of bleeding is very minimal unlikely the patient be anemic but since they are requesting I can order a CBC. Bleeding controlled they don't want to wait for blood work I will send home. Procedures Epistaxis Control Time Out Performed: Yes Nostril: Yes right Nose prepped with: Yes lidocaine and Yes oxymetazoline Direct inspection: Yes anterior source identified Direct inspection method: Yes otoscope Epistaxis treatment: Yes TXA soaked gauze and Yes silver nitrate cautery Results of treatment: Yes bleeding controlled and Yes treatment well tolerated Complications: Yes none Discharge Plan Discharge Clinical Impression: Epistaxis Patient Disposition: Home, Self-Care Instructions: Nosebleed (ED) Additional Instructions: Please call follow-up with your doctor if you have any other concerns please do not hesitate to come back to emergency department. Prescriptions: No Action lisinopril 5 mg tablet 5 mg PO DAILY Qty: 30 5RF clopidogrel [Plavix] 75 mg tablet 75 mg PO DAILY Qty: 90 1RF Rx Instructions: Take 4 tablets on the first day ONLY - then take 1 tablet daily ( replaces Brilinta) tamsulosin 0.4 mg Capsule 0.4 mg PO BEDTIME 0RF atorvastatin 80 mg Tablet 80 mg PO BEDTIME 0RF latanoprost 0.005 % drops 1 drp ophthalmic (eye) BEDTIME 0RF aspirin 81 mg Tablet,Delayed Release (Dr/Ec) 81 mg PO DAILY Qty: 90 1RF levetiracetam [Keppra] 250 mg tablet 250 mg PO BEDTIME 30 Days Qty: 30 0RF cetirizine 10 mg capsule 10 mg PO BEDTIME PRN (Reason: Allergy Symptoms) 0RF metoprolol succinate 25 mg tablet extended release 24 hr 25 mg PO DAILY 0RF isosorbide mononitrate 30 mg tablet extended release 24 hr 30 mg PO DAILY Qty: 90 1RF Referrals: Micah Packer [Physician] - (Please call to follow up for your nose bleed)
[2021-11-29] MEDS: Silver Nitrate Applicator STICK..EA. 1 APPL TOPICAL (15:43)
[2021-11-29] MEDS: Tranexamic Acid 1,000 MG/10 ML VIAL 500 MG INTRANASAL (15:44)
[2021-11-29] MEDS: Oxymetazoline HCl 0.05 % Nasal 15 ML SPRAY 2 SPRAY NOSTRIL-B (15:45)
[2021-11-29 16:10] VITALS: BP 155/70; PULSE 65; RESP 18; TEMP 36.6; O2SAT 97
== END 2021-11-29 17:32 | disposition home or self-care (01) ==
PROVIDERS: Emergency Provider Student in an Organized Health Care Education/Training Program; PCP Nurse Practitioner Family
DX: R04.0 Epistaxis (principal); I10 Essential (primary) hypertension; I25.5 Ischemic cardiomyopathy; J44.9 Chronic obstructive pulmonary disease, unspecified; I25.2 Old myocardial infarction; Z86.73 Personal history of transient ischemic attack (TIA), and cerebral infarction without residual deficits; Z79.02 Long term (current) use of antithrombotics/antiplatelets; Z79.82 Long term (current) use of aspirin
CPT/HCPCS: 30901; 99282; 99283

== ENCOUNTER → 2021-12-01 12:20 | Outpatient (BNVA) | payer OTHER, SELFPAY | PROVIDERS: PCP Nurse Practitioner Family; Referring Provider Nurse Practitioner Family; Visit Provider Internal Medicine | DX: I25.10 Atherosclerotic heart disease of native coronary artery without angina pectoris (principal); I25.5 Ischemic cardiomyopathy; I65.21 Occlusion and stenosis of right carotid artery | CPT/HCPCS: 99212 ==

== ENCOUNTER 2021-12-02 13:38 | Emergency (ER) | payer MEDICARE, SELFPAY ==
[2021-12-02 14:10] VITALS: BP 123/53; PULSE 71; RESP 18; TEMP 36.6; O2SAT 99; BMI 25.4
--- NOTE | 2021-12-02 14:23 | ED.GENADULT ---
HPI - General Adult General Chief complaint: General Medical <SANDY Burch - Last Filed: 12/02/21 14:42> Stated complaint: packing removal <SANDY Burch Last Filed: 12/02/21 14:42> Time Seen by Provider: 12/02/21 14:22 <SANDY Burch Last Filed: 12/02/21 14:42> Source: patient <SANDY Burch Last Filed: 12/02/21 14:42> Mode of arrival: ambulatory <SANDY Burch Last Filed: 12/02/21 14:42> Limitations: no limitations <SANDY Burch Last Filed: 12/02/21 14:42> History of Present Illness HPI narrative: Patient is an 81 year old male presenting to the emergency department today for nasal packing removal. Patient states that he had a nose bleed and had it packed here on Sunday. Patient states that he cannot get into an ENT until next Sunday. Patient denies any bleeding around the packing or down the back of his throat. Patient denies any dizziness, lightheadedness, abdominal pain, nausea, vomiting, fever, chills, blurry vision, double vision, loss of vision, chest pain, difficulty breathing, shortness of breath, back pain, night sweats, pain with urination, increased urinary frequency, increased urinary urgency, blood in his urine or stool, syncope or a near syncopal episode, recent trauma or falls, bowel incontinence, bladder incontinence, bowel retention, bladder retention, or any other complaints at this time. <SANDY Burch Last Filed: 12/02/21 14:42> Related Data Home medications: Home Medications Medication Instructions Recorded Confirmed tamsulosin 0.4 mg capsule 0.4 mg PO BEDTIME 06/20/20 12/01/21 cetirizine 10 mg capsule 10 mg PO BEDTIME PRN 11/19/20 12/01/21 metoprolol succinate 25 mg 25 mg PO DAILY 02/10/21 12/01/21 tablet,extended release 24 hr atorvastatin 80 mg tablet 80 mg PO BEDTIME 02/22/21 12/01/21 latanoprost 0.005 % eye drops 1 drp OPHTHALMIC (EYE) BEDTIME 02/22/21 12/01/21 Previous Rx's Medication Instructions Recorded aspirin 81 mg tablet,delayed 81 mg PO DAILY #90 tab 10/11/20 release lisinopril 5 mg tablet 5 mg PO DAILY #30 tab 10/27/20 isosorbide mononitrate 30 mg 30 mg PO DAILY #90 tab 02/10/21 tablet,extended release 24 hr levetiracetam 250 mg tablet 250 mg PO BEDTIME 30 Days #30 tab 08/04/21 (Kelinnea) <SANDY Burch - Last Filed: 12/02/21 14:42> Allergies/adverse reactions: Allergies Allergy/AdvReac Type Severity Reaction Status Date / Time bee pollen [bee stings] Allergy Severe Anaphylaxis Verified 12/01/21 12:28 <SANDY Burch - Last Filed: 12/02/21 14:42> Review of Systems Constitutional: Constitutional: Reports no additional constitutional complaints, Denies chills, Denies fever(s) and Denies night sweats <SANDY Burch Last Filed: 12/02/21 14:42> Eyes: Eyes: Reports no additional eye complaints, Denies blurry vision, Denies change in vision, Denies diplopia, Denies eye discharge, Denies loss of vision and Denies eye pain <SANDY Burch Last Filed: 12/02/21 14:42> ENT: Denies dizziness <SANDY Burch - Last Filed: 12/02/21 14:42> Comments: nasal packing in place in the right nostril <SANDY Burch Last Filed: 12/02/21 14:42> Cardiovascular: Cardiovascular: Reports no additional cardiovascular complaints, Denies chest pain, Denies lightheadedness, Denies Loss of Consciousness and Denies dyspnea <SANDY Burch Last Filed: 12/02/21 14:42> Respiratory: Respiratory: Reports no additional respiratory complaints and Denies dyspnea <SANDY Burch Last Filed: 12/02/21 14:42> Gastrointestinal: Gastrointestinal: Reports no additional gastrointestinal complaints, Denies abdominal pain, Denies melena, Denies hematochezia, Denies change in bowel habits and Denies change in stool character <SANDY Burch Last Filed: 12/02/21 14:42> Genitourinary: Genitourinary: Reports no additional male genitourinary complaints, Denies hematuria, Denies oliguria, Denies difficulty urinating, Denies dysuria, Denies urinary frequency, Denies urinary hesitancy, Denies urinary incontinence and Denies urinary urgency <SANDY Burch - Last Filed: 12/02/21 14:42> Musculoskeletal: Musculoskeletal: Reports no additional musculoskeletal complaints, Denies numbness and Denies tingling <SANDY Burch - Last Filed: 12/02/21 14:42> Neurologic: Denies dizziness, Denies loss of vision, Denies numbness and Denies tingling <SANDY Burch - Last Filed: 12/02/21 14:42> Psychiatric: Psychiatric: Reports no additional psychiatric complaints <SANDY Burch - Last Filed: 12/02/21 14:42> Endocrine: Endocrine: Reports no additional endocrine complaints <SANDY Burch - Last Filed: 12/02/21 14:42> Hematologic/Lymphatic: Hematologic/Lymphatic: Reports no additional hematologic/lymphatic complaints <SANDY Burch - Last Filed: 12/02/21 14:42> Allergic/Immunologic: Allergic/Immunologic: Reports no additional allergic/immunologic complaints <SANDY Burch - Last Filed: 12/02/21 14:42> [facility] Past Medical History Attestation statement: The following information was validated with the patient. <SANDY Burch - Last Filed: 12/02/21 14:42> Source: old records reviewed <SANDY Burch - Last Filed: 12/02/21 14:42> Medical History: Medical History Abnormal echocardiogram Ambulates with cane Arthritis BPH (benign prostatic hyperplasia) Cerebrovascular accident COPD (chronic obstructive pulmonary disease) COVID-19 vaccine series completed CVA (cerebrovascular accident) GUEVARA (dyspnea on exertion) Essential hypertension Hard of hearing History of acute inferior wall myocardial infarction History of smoking at least 1 pack per day for at least 30 years Hyperlipidemia Ischemic cardiomyopathy Low back pain Nasal congestion Near syncope 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 Right bundle branch block <SANDY Burch - Last Filed: 12/02/21 14:42> Surgical History: Surgical History H/O foot surgery H/O heart artery stent Previous back surgery S/P cardiac catheterization <SANDY Burch - Last Filed: 12/02/21 14:42> Family History Family History: Family History Other CAD (coronary artery disease) <SANDY Burch - Last Filed: 12/02/21 14:42> Social History Social History: Social History Household Members: Spouse Housing: House Are you a primary workforce investment act career manager to a significant other at home: No Do you presently have visiting nurse or other home services: No Alcohol intake: never Patient Tobacco Use Status: Former Tobacco user Quit Date: 2015 Tobacco use type: Cigarette Cigarette Packs Per Day: 1 Cigarettes Per Day: 20.0 Years Smoked: 30 e-Cigarette/Vaping Use: Former Use Advance Directives: Yes Advance Directives on File: Yes Advance Directives Date on File: 07/18/21 service: Yes Current occupational status: retired <SANDY Burch - Last Filed: 12/02/21 14:42> Physical Exam ED Vital Signs: Vital Signs - 24 hr 12/02/21 14:10 12/02/21 14:29 Temperature 98 F 97.9 F Pulse Rate 71 69 Respiratory Rate 18 16 Blood Pressure 123/53 L 115/47 L Pulse Oximetry 99 97 BMI result Body Mass Index 25.4 <SANDY Burch - Last Filed: 12/02/21 14:42> Const General: cooperative, no acute distress, alert and awake <SANDY Burch - Last Filed: 12/02/21 14:42> Nutritional Appearance: well nourished <SANDY Burch - Last Filed: 12/02/21 14:42> Orientation/consciousness: patient oriented x3 <SANDY Burch - Last Filed: 12/02/21 14:42> Limitations: no limitations <SANDY Burch - Last Filed: 12/02/21 14:42> HENMT Head: Yes atraumatic <SANDY Burch - Last Filed: 12/02/21 14:42> Ears: hearing grossly normal bilaterally and external ears normal <Marli Fish MA - Last Filed: 12/02/21 14:42> General nose exam: no nasal discharge noted and Other nasal findings present (nasal packing present to the right nostril) <Marli Fish [facility] Last Filed: 12/02/21 14:42> Face and sinus: Yes normal facial exam, No abrasion and No laceration <Marli uGamanjose alfredo MA - Last Filed: 12/02/21 14:42> Mouth: Normal oral and palatal mucosa present, no drooling and no muffled voice <Marli Guamanjose alfredo MA - Last Filed: 12/02/21 14:42> Eyes General: appearance normal, both eyes and all related structures <Marli Fish MA - Last Filed: 12/02/21 14:42> Periorbital: periorbital findings normal <Marli Guamanjose alfredo MA - Last Filed: 12/02/21 14:42> Eyelids: Yes eyelids normal <Marli Fish [facility] Last Filed: 12/02/21 14:42> Conjunctivae: conjunctivae normal <Marli Guamanjose alfredo MA - Last Filed: 12/02/21 14:42> Pupils: Equal, round and reactive pupils present <Marli Fish [facility] Last Filed: 12/02/21 14:42> EOM: EOMs intact bilaterally <Marli Guamanjose alfredo [facility] Last Filed: 12/02/21 14:42> Neck Neck: Yes normal visual inspection, Yes full ROM and Yes no lymphadenopathy <Marli Guamanjose alfredo MA - Last Filed: 12/02/21 14:42> Chest Chest palpation & inspection: normal inspection of the chest <Marli Guamanjose alfredo [facility] Last Filed: 12/02/21 14:42> Resp Effort & Inspection: normal respiratory effort and able to speak in complete sentences <Marli GuamanSANDY veliz Last Filed: 12/02/21 14:42> Auscultation: clear to auscultation bilaterally <Marli SANDY Fish Last Filed: 12/02/21 14:42> Cardio Rate: regular rate <Marli Polina MA - Last Filed: 12/02/21 14:42> Rhythm: regular rhythm <Marli Fish PA - Last Filed: 12/02/21 14:42> GI Inspection: Yes normal to inspection <Marli Fish PA - Last Filed: 12/02/21 14:42> Neuro General: patient oriented x3 and moves all extremities <Marli Fish PA - Last Filed: 12/02/21 14:42> Cranial nerves: Yes Equal, round and reactive pupils present <Marli Fish PA - Last Filed: 12/02/21 14:42> Cognition (Neuro): normal cognition <Marli Fish PA - Last Filed: 12/02/21 14:42> Motor exam (neuro): 5/5 motor strength present throughout <Marli Fsih PA - Last Filed: 12/02/21 14:42> Sensory Exam: Normal double simultaneous stimulation for sensation <Marli Fish PA - Last Filed: 12/02/21 14:42> Coordination: [id number] test normal <Marli Fish PA - Last Filed: 12/02/21 14:42> Extrem General: Yes normal to inspection, Yes full ROM and Yes capillary refill normal <Marli Fish PA - Last Filed: 12/02/21 14:42> Psych Appearance: grossly normal <Marli GuamanSANDY veliz - Last Filed: 12/02/21 14:42> Mental Status: mental status grossly normal <Marli FishSANDY - Last Filed: 12/02/21 14:42> Affect: normal affect <Marli GuamanSANDY veliz - Last Filed: 12/02/21 14:42> Attitude: cooperative <Marli Guamanjose alfredo PA - Last Filed: 12/02/21 14:42> Thought process: Normal thought process present <Marli GuamanSANDY veliz - Last Filed: 12/02/21 14:42> Thought content: Normal thought content present <Marli GuamanSANDY veliz - Last Filed: 12/02/21 14:42> Insight: Good insight present (Psych) <Marli GuamanSANDY veliz - Last Filed: 12/02/21 14:42> Procedures FB Removal Nose Location: nostril (R) <SANDY Burch - Last Filed: 12/02/21 14:42> Suspected Foreign Body: other (nasal packing) <SANDY Burch Last Filed: 12/02/21 14:42> Patient Tolerated Procedure: well <SANDY Burch Last Filed: 12/02/21 14:42> Complications: none <SANDY Burch Last Filed: 12/02/21 14:42> Medical Decision Making MDM Narrative Medical decision making narrative: Patient is an 81 year old male presenting to the emergency department today for nasal packing removal. Patient's physical exam showed nasal packing in place to the right nostril. Patient's packing was removed, without incident. There was no residual bleeding. I explained my physical exam findings to the patient. I answered all questions asked by the patient. I stressed the importance of the patient taking his medication as prescribed. I stressed the importance of the patient following up with his primary care provider and an ENT as scheduled. I stressed the importance of the patient returning to the emergency department immediately if his symptoms were to worsen or if he were to develop any dizziness, shortness of breath, difficulty breathing, chest pain, blurry vision, loss of vision, nausea, vomiting, abdominal pain, fever, chills, back pain, or any other complaints. Patient verbalized agreement and understanding with this treatment plan and discharge. <SANDY Burch - Last Filed: 12/02/21 14:42> Differential Diagnosis Differential Diagnosis: nasal packing removal <SANDY Burch Last Filed: 12/02/21 14:42> Medical Records Medical records reviewed: Yes I reviewed the patient's medical records. <SANDY Burch Last Filed: 12/02/21 14:42> Discharge Plan Discharge Clinical Impression: Encounter for removal of nasal packing <SANDY Burch Last Filed: 12/02/21 14:42> Patient Disposition: Home, Self-Care <SANDY Burch Last Filed: 12/02/21 14:42> Instructions: Nosebleed (ED) <SANDY Burch Last Filed: 12/02/21 14:42> Additional Instructions: Follow up with your primary care provider and an ENT as scheduled on Sunday. Return to the emergency department immediately if your symptoms worsen or if you develop any dizziness, shortness of breath, difficulty breathing, chest pain, blurry vision, loss of vision, nausea, vomiting, abdominal pain, fever, chills, back pain, or any other complaints. <SANDY Burch - Last Filed: 12/02/21 14:42> Prescriptions: No Action lisinopril 5 mg tablet 5 mg PO DAILY Qty: 30 5RF tamsulosin 0.4 mg Capsule 0.4 mg PO BEDTIME 0RF atorvastatin 80 mg Tablet 80 mg PO BEDTIME 0RF latanoprost 0.005 % drops 1 drp ophthalmic (eye) BEDTIME 0RF aspirin 81 mg Tablet,Delayed Release (Dr/Ec) 81 mg PO DAILY Qty: 90 1RF levetiracetam [Keppra] 250 mg tablet 250 mg PO BEDTIME 30 Days Qty: 30 0RF cetirizine 10 mg capsule 10 mg PO BEDTIME PRN (Reason: Allergy Symptoms) 0RF metoprolol succinate 25 mg tablet extended release 24 hr 25 mg PO DAILY 0RF isosorbide mononitrate 30 mg tablet extended release 24 hr 30 mg PO DAILY Qty: 90 1RF <SANDY Burch - Last Filed: 12/02/21 14:42> Referrals: Alejandra Howell, [employer] [Primary Care Provider] - (Follow up with your PCP. ) <SANDY Burch - Last Filed: 12/02/21 14:42> Interventions: ED Discharge Assessment Last Done: 12/02/21 14:33 <SANDY Burch - Last Filed: 12/02/21 14:42> Discharge Date/Time: 12/02/21 14:33 <SANDY Burch - Last Filed: 12/02/21 14:42> Print Language: Sammarinese <SANDY Burch - Last Filed: 12/02/21 14:42>
--- NOTE | 2021-12-02 14:28 | PC.NURSE ---
Pt alert and oriented x4, calm and cooperative. Pt denies pain. Pt has nose packing removed by PA and tolerated well. No bleeding noted, denies pain. Vitals stable. No IV in place. Pt and educated on dc and stated an understanding. Ambulated out to private car without issues.
[2021-12-02 14:29] VITALS: BP 115/47; PULSE 69; RESP 16; TEMP 36.6; O2SAT 97
== END 2021-12-02 14:33 | disposition home or self-care (01) ==
PROVIDERS: Emergency Provider Emergency Medicine; PCP Nurse Practitioner Family
DX: T17.1XXA Foreign body in nostril, initial encounter (principal); J34.89 Other specified disorders of nose and nasal sinuses; X58.XXXA Exposure to other specified factors, initial encounter; Y93.9 Activity, unspecified; Y92.9 Unspecified place or not applicable; Y99.9 Unspecified external cause status; Z79.899 Other long term (current) drug therapy
CPT/HCPCS: 99284

== ENCOUNTER 2021-12-05 13:09 | Outpatient (REF) | payer OTHER, SELFPAY ==
--- NOTE | ~2021-12-05 | US_ITS ---
EXAMINATION: US EXTRACRANIAL CAROTID DUPLEX, BILATERAL CLINICAL INFORMATION: Carotid artery stenosis. Right endarterectomy. COMPARISON: CTA neck 08/03/2021. TECHNIQUE: Real-time ultrasound and Doppler techniques (integrating B-mode 2-D vascular images, Doppler spectral analysis and color-flow Doppler imaging) were utilized to interrogate the extracranial carotid arteries, the vertebral arteries and proximal subclavian arteries bilaterally. The degree of stenosis is determined by criteria similar to NASCET. FINDINGS: Right Side: 1. There is mild calcified atherosclerotic plaque seen in the bifurcation/proximal ICA region. 2. The common carotid artery PSV proximally is 75 cm/s and distally 34 cm/s. 3. The proximal internal carotid artery velocities are 112 cm/s systolic and 24 cm/s diastolic. 4. The proximal external carotid artery PSV is 604 cm/s. 5. The vertebral artery shows antegrade flow. 6. The subclavian artery waveforms are normal. Left Side: 1. There is moderate calcified atherosclerotic plaque seen in the bifurcation/proximal ICA region. 2. The common carotid artery PSV proximally is 102 cm/s and distally 130 cm/s. 3. The proximal internal carotid artery velocities are 138 cm/s systolic and 30 cm/s diastolic. 4. The proximal external carotid artery PSV is 338 cm/s. 5. The vertebral artery shows antegrade flow. 6. The subclavian artery waveforms are normal. US/US carotid duplex BI IMPRESSION: 1. RIGHT: Carotid endarterectomy with minimal, non-hemodynamically significant stenosis of the proximal right internal carotid artery corresponding to a 0-49% stenosis by velocity criteria. 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 Clinical correlation is necessary. If there is any ongoing concern, CT angiogram would be recommended for further evaluation. 2. LEFT: Moderate, hemodynamically significant stenosis of the proximal left internal carotid artery corresponding to a 50-79% stenosis by velocity criteria.
== END 2021-12-05 13:10 | disposition home or self-care (01) ==
LOC: HO.US 13:09
PROVIDERS: Visit Provider Surgery Vascular Surgery
DX: I65.23 Occlusion and stenosis of bilateral carotid arteries (principal); Z98.890 Other specified postprocedural states
CPT/HCPCS: 93880

== ENCOUNTER → 2021-12-15 14:03 | Outpatient (BNVA) | payer OTHER, MEDICARE, SELFPAY | PROVIDERS: PCP Nurse Practitioner Family; Visit Provider Surgery Vascular Surgery | DX: I65.23 Occlusion and stenosis of bilateral carotid arteries (principal) | CPT/HCPCS: 99212 ==

== ENCOUNTER 2021-12-19 13:03 | Observation (INO) | payer OTHER, SELFPAY ==
[2021-12-19] VITALS (9 sets, daily range): BP systolic 100–192; BP diastolic 60–88; PULSE 55–80; RESP 14–20; TEMP 36.5–36.7; O2SAT 96–99; BMI 26.4
--- NOTE | ~2021-12-19 | CT_ITS ---
EXAMINATION: CT HEAD WITHOUT CONTRAST CT CERVICAL SPINE WITHOUT CONTRAST CLINICAL INFORMATION: Syncope COMPARISON: 08/03/2021 TECHNIQUE: Multidetector CT imaging of the head and cervical spine was performed without the use of intravenous contrast. Multiplanar reformats are reviewed. This CT examination was performed using dose optimization techniques as appropriate, variously including the following: *Automated exposure control *Adjustment of mA and/or kV according to patient size (this includes techniques or standardized protocols for targeted exams where dose is matched to indication/reason for exam; i.e. extremities or head) *Use of iterative reconstruction technique DLP: 1184 mGy-cm. FINDINGS: There is no evidence of acute intracranial hemorrhage or territorial infarction. No abnormal mass effect or midline shift is seen. Lynch to white matter differentiation is well preserved. No extra-axial fluid collections are identified. The ventricles are normal in size. Patchy and confluent subcortical and periventricular white matter low-attenuation changes reflective chronic microangiopathic gliosis and are stable from prior. Cavernous carotid calcifications. The osseous structures and soft tissues are normal. The mastoid air cells and visualized portions of the paranasal sinuses are well-aerated. Atlantooccipital alignment is maintained. The vertebral bodies and posterior elements align normally. No acute fracture or subluxation. Vertebral body heights are maintained. Small endplate osteophytes and facet arthropathy present throughout the cervical spine. The paraspinal soft tissues are unremarkable. The imaged lung apices are clear CT/CT cervical spine wo con IMPRESSION: No acute intracranial pathology. No cervical spine fracture or malalignment.
--- NOTE | ~2021-12-19 | CT_ITS ---
EXAMINATION: CT HEAD WITHOUT CONTRAST CT CERVICAL SPINE WITHOUT CONTRAST CLINICAL INFORMATION: Syncope COMPARISON: 08/03/2021 TECHNIQUE: Multidetector CT imaging of the head and cervical spine was performed without the use of intravenous contrast. Multiplanar reformats are reviewed. This CT examination was performed using dose optimization techniques as appropriate, variously including the following: *Automated exposure control *Adjustment of mA and/or kV according to patient size (this includes techniques or standardized protocols for targeted exams where dose is matched to indication/reason for exam; i.e. extremities or head) *Use of iterative reconstruction technique DLP: 1184 mGy-cm. FINDINGS: There is no evidence of acute intracranial hemorrhage or territorial infarction. No abnormal mass effect or midline shift is seen. Lynch to white matter differentiation is well preserved. No extra-axial fluid collections are identified. The ventricles are normal in size. Patchy and confluent subcortical and periventricular white matter low-attenuation changes reflective chronic microangiopathic gliosis and are stable from prior. Cavernous carotid calcifications. The osseous structures and soft tissues are normal. The mastoid air cells and visualized portions of the paranasal sinuses are well-aerated. Atlantooccipital alignment is maintained. The vertebral bodies and posterior elements align normally. No acute fracture or subluxation. Vertebral body heights are maintained. Small endplate osteophytes and facet arthropathy present throughout the cervical spine. The paraspinal soft tissues are unremarkable. The imaged lung apices are clear CT/CT head/brain wo con IMPRESSION: No acute intracranial pathology. No cervical spine fracture or malalignment.
--- NOTE | 2021-12-19 13:34 | ECG_ITS ---
Test Reason : SYNCOPE Blood Pressure : / mmHG Vent. Rate : 062 BPM Atrial Rate : 062 BPM P-R Int : 190 ms QRS Dur : 138 ms QT Int : 462 ms P-R-T Axes : 033 045 -26 degrees QTc Int : 468 ms Normal sinus rhythm Non-specific intra-ventricular conduction block Lateral infarct (cited on or before 12-JUL-2021) Inferior infarct (cited on or before 24-NOV-2016) Abnormal ECG When compared with ECG of 03-AUG-2021 17:04, No significant changes seen Referred By: Jin Paula Electronically Signed By:JESSA ANDREA
--- NOTE | 2021-12-19 14:01 | ED_ITS ---
HPI - General Adult General Chief complaint: Syncope Stated complaint: syncope after moving the lawn Time Seen by Provider: 12/19/21 13:34 Source: patient Mode of arrival: ambulatory Limitations: no limitations History of Present Illness HPI narrative: 81-year-old male with history of COPD, complex partial disorder, NC, stent in the left circumflex coronary artery, and cardiac catheterization presents to the ED for syncopal episode. Patient states he was mowing the lawn on the hot sun and did not drink any water after he was done he walked into the house and states he felt dehydrated and needed cups of water. Patient felt like he was about to pass out so he sat on his chair and then he slid from the chair onto the floor and passed out. Patient denies hitting head or loss of consciousness. Patient was awaken by EMS. EMS states patient had another syncopal episode in front of them and could not find blood pressure, but there was weak pulse. They did not call a code. Patient states presently he has no symptoms. Patient states just feeling thirsty. Patient denies having any chest pain, shortness of breath, headache, slurred speech, facial droop, or paralysis of extremities before passing out. Related Data Home Medications Medication Instructions Recorded Confirmed tamsulosin 0.4 mg capsule 0.4 mg PO BEDTIME 06/20/20 12/19/21 metoprolol succinate 25 mg 25 mg PO DAILY 02/10/21 12/19/21 tablet,extended release 24 hr atorvastatin 80 mg tablet 80 mg PO BEDTIME 02/22/21 12/19/21 albuterol sulfate 90 mcg/actuation 2 puff INHALATION Q6H PRN 12/19/21 12/19/21 aerosol inhaler aspirin 81 mg tablet,delayed 81 mg PO BEDTIME 12/19/21 12/19/21 release clopidogrel 75 mg tablet (Plavix) 75 mg PO DAILY 12/19/21 12/19/21 sodium chloride 0.65 % nasal spray 2 spray INTRANASAL BID PRN 12/19/21 12/19/21 aerosol (Saline Nasal) Previous Rx's Medication Instructions Recorded lisinopril 5 mg tablet 5 mg PO DAILY #30 tab 10/27/20 levetiracetam 250 mg tablet 250 mg PO BEDTIME 30 Days #30 tab 08/04/21 (Keppra) Allergies Allergy/AdvReac Type Severity Reaction Status Date / Time bee pollen [bee stings] Allergy Severe Anaphylaxis Verified 12/15/21 14:06 Review of Systems Review of Systems: Syncope Yes all other systems are reviewed and are negative [facility] Past Medical History Medical History Abnormal echocardiogram Ambulates with cane Arthritis BPH (benign prostatic hyperplasia) Cerebrovascular accident COPD (chronic obstructive pulmonary disease) COVID-19 vaccine series completed CVA (cerebrovascular accident) GUEVARA (dyspnea on exertion) Essential hypertension Hard of hearing History of acute inferior wall myocardial infarction History of smoking at least 1 pack per day for at least 30 years Hyperlipidemia Ischemic cardiomyopathy Low back pain Nasal congestion Near syncope 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 Right bundle branch block Surgical History H/O foot surgery H/O heart artery stent Previous back surgery S/P cardiac catheterization Family History Family History Other CAD (coronary artery disease) Social History Social History Household Members: Spouse Housing: House Are you a primary acute care physical therapist to a significant other at home: No Do you presently have visiting nurse or other home services: No Alcohol intake: never Patient Tobacco Use Status: Former Tobacco user Quit Date: 2015 Tobacco use type: Cigarette Cigarette Packs Per Day: 1 Cigarettes Per Day: 20.0 Years Smoked: 30 e-Cigarette/Vaping Use: Former Use Use of substances other than those prescribed or required for medical reasons: No Advance Directives: Yes Advance Directives on File: Yes Advance Directives Date on File: 07/18/21 service: Yes Current occupational status: retired Physical Exam ED Vital Signs: Vital Signs - 24 hr 12/19/21 13:38 12/19/21 14:23 12/19/21 15:07 Temperature 97.8 F 98.0 F Pulse Rate 60 55 74 Respiratory Rate 15 14 18 Blood Pressure 140/67 H 145/60 H 156/76 H Pulse Oximetry 99 99 98 BMI result Body Mass Index 26.4 Const General: cooperative, healthy appearing, comfortable, no acute distress, well developed, alert, awake and Physically active Orientation/consciousness: oriented to time and patient oriented x3 HENMT Head: Yes normal to inspection, Yes No palpable skull fracture present, Yes normocephalic, Yes atraumatic and No abrasion Eyes General: appearance normal, both eyes and all related structures Neck Neck: Yes normal visual inspection, Yes full ROM, Yes no lymphadenopathy, Yes no meningeal signs, Yes trachea midline, Yes supple, No anterior neck swelling and No tender Chest Chest palpation & inspection: normal inspection of the chest and normal palpation of entire chest wall Resp Effort & Inspection: normal respiratory effort and able to speak in complete sentences Auscultation: clear to auscultation bilaterally Cardio Jugular venous distension: no JVD Heart sounds: S1 normal heart sound present and S2 normal heart sound present GI Inspection: Yes normal to inspection and No abdominal wall ecchymosis Palpation (GI): Soft to palpation, not firm, nontender, no guarding and not rigid General: No CVA tenderness and Yes no CVA tenderness Back/Spine/Pelvis Back: no CVA tenderness, No CVA tenderness and No back tenderness Skin General skin exam: no rashes or lesions noted and elasticity normal Neuro Other: Negative slurred speech. Negative facial droop. Negative pronator drift. All extremities equal strength 5+. [id number] rapid hand movement intact. Negative Romberg. NIH score is 0. General: oriented to time, patient oriented x3, gait normal, no meningeal signs, CN's II-XI intact bilaterally and decrease sensation to monofilament Extrem Other: Lower extremities negative any pitting edema, swelling, or calf tenderness to palpation General: Yes normal to inspection and Yes full ROM Psych Appearance: grossly normal, well kempt and not disheveled Course Course Course Narrative: Due to cardiac history and syncopal episode will do cardiac evaluation Reevaluation(s) Reevaluation #1: EKG negative STEMI. First troponin negative. D-dimer 237. Normal cut off is 240. When D-dimer age adjusted, D-dimer is negative. Patient talking and making jokes with staff. Wells score is 0. Orthostatics is ordered and pending. Head CT cervical spine CT pending. Time: 15:42 Reevaluation #2: Due to patient risk factors. And heart score of at least 4 patient will be admitted for syncope. Patient images came back normal Time: 16:56 Medical Decision Making Lab Data Result diagrams: 12/19/21 13:55 12/19/21 13:55 Labs: Lab Results 12/19/21 12/19/21 12/19/21 Range/Units 13:55 13:55 13:55 WBC 9.7 (4.8-10.8) X10*3/uL RBC 3.63 L (4.60-5.80) X10*6/uL Hgb 11.0 L (14.0-18.0) g/dl Hct 33.7 L (42.0-52.0) % MCV 92.8 (80.0-98.0) fL MCH 30.3 (27.0-33.0) pg MCHC 32.6 (31.0-36.0) g/dl RDW 13.3 (11.0-16.0) % Plt Count 252 (160-400) X10*3/uL MPV 10.1 (9.4-12.4) fL Immature Gran % (Auto) 0.2 (0.0-0.4) % Neut % (Auto) 77.4 H (45-73) % Lymph % (Auto) 9.3 L (20-40) % [place] % (Auto) 9.5 (2-11) % Eos % (Auto) 2.8 (0-4) % Baso % (Auto) 0.8 (0-2) % Lymph # (Auto) 0.9 L (1.2-4.9) X10*3/uL [place] # (Auto) 0.9 (0.1-1.2) X10*3/uL Eos # (Auto) 0.3 (0.0-0.4) X10*3/uL Baso # (Auto) 0.1 (0.0-0.2) X10*3/uL Abs Immat Gran (auto) 0.02 (0.00-0.03) X10*3/uL Absolute Neuts (auto) 7.5 (2.0-8.3) x10*3/uL Absolute Nucleated RBC 0.000 (0.0-0.012) X10*3/uL Nucleated RBC % (auto) 0.0 (0.0-0.2) /100WBC PT 13.4 H (9.9-13.0) SEC INR 1.2 H (0.9-1.1) APTT 26.9 (24.1-38.0) SEC D-Dimer High Sensitivty 237 NG/ML Sodium 136 (135-145) mmol/L Potassium 4.8 D (3.3-5.1) mmol/L Chloride 106 (96-108) mmol/L Carbon Dioxide 24 (22-29) mmol/L Anion Gap 11 L (12-20) BUN 11 (9-16) mg/dL Creatinine 1.29 (0.5-1.4) mg/dL Estim Creat Clear Calc 43.3 Estimated GFR 53 Random Glucose 107 (60-115) mg/dL Calcium 8.5 (8.4-10.2) mg/dL Total Bilirubin 0.6 (0.0-1.0) mg/dL AST 19 (5-37) U/L ALT 15 (0-40) U/L Alkaline Phosphatase 97 (39-117) U/L Total Creatine Kinase 196 H (38-174) U/L Troponin I High Sens (<3.5-35.0) ng/L B-Natriuretic Peptide (<100) pg/mL Total Protein 6.2 L (6.5-8.0) g/dL Albumin 3.5 (3.5-5.0) g/dL COVID-19 ([facility]GO) (Negative) COVID-19 Clin Com Influenza Type A ([place]) (Negative) Influenza Type B ([place]) (Negative) Influenza A & B Note 12/19/21 12/19/21 12/19/21 Range/Units 13:55 13:55 14:21 WBC (4.8-10.8) X10*3/uL RBC (4.60-5.80) X10*6/uL Hgb (14.0-18.0) g/dl Hct (42.0-52.0) % MCV (80.0-98.0) fL MCH (27.0-33.0) pg MCHC (31.0-36.0) g/dl RDW (11.0-16.0) % Plt Count (160-400) X10*3/uL MPV (9.4-12.4) fL Immature Gran % (Auto) (0.0-0.4) % Neut % (Auto) (45-73) % Lymph % (Auto) (20-40) % [place] % (Auto) (2-11) % Eos % (Auto) (0-4) % Baso % (Auto) (0-2) % Lymph # (Auto) (1.2-4.9) X10*3/uL [place] # (Auto) (0.1-1.2) X10*3/uL Eos # (Auto) (0.0-0.4) X10*3/uL Baso # (Auto) (0.0-0.2) X10*3/uL Abs Immat Gran (auto) (0.00-0.03) X10*3/uL Absolute Neuts (auto) (2.0-8.3) x10*3/uL Absolute Nucleated RBC (0.0-0.012) X10*3/uL Nucleated RBC % (auto) (0.0-0.2) /100WBC PT (9.9-13.0) SEC INR (0.9-1.1) APTT (24.1-38.0) SEC D-Dimer High Sensitivty NG/ML Sodium (135-145) mmol/L Potassium (3.3-5.1) mmol/L Chloride (96-108) mmol/L Carbon Dioxide (22-29) mmol/L Anion Gap (12-20) BUN (9-16) mg/dL Creatinine (0.5-1.4) mg/dL Estim Creat Clear Calc Estimated GFR Random Glucose (60-115) mg/dL Calcium (8.4-10.2) mg/dL Total Bilirubin (0.0-1.0) mg/dL AST (5-37) U/L ALT (0-40) U/L Alkaline Phosphatase (39-117) U/L Total Creatine Kinase (38-174) U/L Troponin I High Sens 16.5 (<3.5-35.0) ng/L B-Natriuretic Peptide 145 H (<100) pg/mL Total Protein (6.5-8.0) g/dL Albumin (3.5-5.0) g/dL COVID-19 (HUGO) (Negative) COVID-19 Clin Com Influenza Type A ([place]) Negative (Negative) Influenza Type B ([place]) Negative (Negative) Influenza A & B Note See Note 12/19/21 Range/Units 14:21 WBC (4.8-10.8) X10*3/uL RBC (4.60-5.80) X10*6/uL Hgb (14.0-18.0) g/dl Hct (42.0-52.0) % MCV (80.0-98.0) fL MCH (27.0-33.0) pg MCHC (31.0-36.0) g/dl RDW (11.0-16.0) % Plt Count (160-400) X10*3/uL MPV (9.4-12.4) fL Immature Gran % (Auto) (0.0-0.4) % Neut % (Auto) (45-73) % Lymph % (Auto) (20-40) % [place] % (Auto) (2-11) % Eos % (Auto) (0-4) % Baso % (Auto) (0-2) % Lymph # (Auto) (1.2-4.9) X10*3/uL [place] # (Auto) (0.1-1.2) X10*3/uL Eos # (Auto) (0.0-0.4) X10*3/uL Baso # (Auto) (0.0-0.2) X10*3/uL Abs Immat Gran (auto) (0.00-0.03) X10*3/uL Absolute Neuts (auto) (2.0-8.3) x10*3/uL Absolute Nucleated RBC (0.0-0.012) X10*3/uL Nucleated RBC % (auto) (0.0-0.2) /100WBC PT (9.9-13.0) SEC INR (0.9-1.1) APTT (24.1-38.0) SEC D-Dimer High Sensitivty NG/ML Sodium (135-145) mmol/L Potassium (3.3-5.1) mmol/L Chloride (96-108) mmol/L Carbon Dioxide (22-29) mmol/L Anion Gap (12-20) BUN (9-16) mg/dL Creatinine (0.5-1.4) mg/dL Estim Creat Clear Calc Estimated GFR Random Glucose (60-115) mg/dL Calcium (8.4-10.2) mg/dL Total Bilirubin (0.0-1.0) mg/dL AST (5-37) U/L ALT (0-40) U/L Alkaline Phosphatase (39-117) U/L Total Creatine Kinase (38-174) U/L Troponin I High Sens (<3.5-35.0) ng/L B-Natriuretic Peptide (<100) pg/mL Total Protein (6.5-8.0) g/dL Albumin (3.5-5.0) g/dL COVID-19 (HUGO) Negative (Negative) COVID-19 Clin Com See Note Influenza Type A ([place]) (Negative) Influenza Type B ([place]) (Negative) Influenza A & B Note ECG Data Interpretation: Normal sinus rhythm. Ventricular rate 62. GA interval 190. QRS is 138. QTC 468. Negative STEMI Discharge Plan Discharge Clinical Impression: Syncope Patient Disposition: Admitted As Inpatient
[2021-12-19 14:14] LABS: MANUAL DIFF FLAG NO
[2021-12-19 14:17] LABS: Basophils Absolute Auto 0.1 X10*3/uL (0.0-0.2); Basophils Percent Auto 0.8 % (0-2); Eosinophils Absolute Auto 0.3 X10*3/uL (0.0-0.4); Eosinophils Percent Auto 2.8 % (0-4); Hematocrit 33.7 % (42.0-52.0); Imm Gran Abs Auto 0.02 X10*3/uL (0.00-0.03); Imm Gran Pct Auto 0.2 % (0.0-0.4); Lymphocytes Absolute Auto 0.9 X10*3/uL (1.2-4.9); Lymphocytes Percent Auto 9.3 % (20-40); Mean Corpuscular HGB Conc 32.6 g/dl (31.0-36.0); Mean Corpuscular Hemoglobin 30.3 pg (27.0-33.0); Mean Corpuscular Volume 92.8 fL (80.0-98.0); Mean Platelet Volume 10.1 fL (9.4-12.4); Monocytes Absolute Auto 0.9 X10*3/uL (0.1-1.2); Monocytes Percent Auto 9.5 % (2-11); Neutrophils Absolute Auto 7.5 x10*3/uL (2.0-8.3); Neutrophils Percent Auto 77.4 % (45-73); Platelet Count 252 X10*3/uL (160-400); Red Blood Count 3.63 X10*6/uL (4.60-5.80); Red Cell Distribution Width 13.3 % (11.0-16.0); White Blood Count 9.7 X10*3/uL (4.8-10.8)
[2021-12-19 14:22] LABS: INTERNATIONAL NORM RATIO 1.2 (0.9-1.1); Prothrombin Time 13.4 SEC (9.9-13.0)
[2021-12-19 14:24] LABS: Partial Thromboplastin Time 26.9 SEC (24.1-38.0)
[2021-12-19 14:44] LABS: COVID-19 Test Negative (Negative); IDNOW Serial# 9DB6401D; Influenza A Negative (Negative); Influenza B2 Negative (Negative)
[2021-12-19 14:46] LABS: Alanine Aminotransferase 15 U/L (0-40); Albumin Level 3.5 g/dL (3.5-5.0); Alkaline Phosphatase 97 U/L (39-117); Anion Gap 11 (12-20); Aspartate Amino Transferase 19 U/L (5-37); Bilirubin Total 0.6 mg/dL (0.0-1.0); Blood Urea Nitrogen 11 mg/dL (9-16); Calcium 8.5 mg/dL (8.4-10.2); Carbon Dioxide 24 mmol/L (22-29); Chloride 106 mmol/L (96-108); Creatinine Clr Calc Pharmacy 43.3; Estimated Glomerular Filt Rate 53; Glucose Random 107 mg/dL (60-115); Potassium 4.8 mmol/L (3.3-5.1); Sodium 136 mmol/L (135-145); Total Protein 6.2 g/dL (6.5-8.0)
[2021-12-19 14:49] LABS: Troponin-I High Sensitivity 16.5 ng/L (<3.5-35.0)
[2021-12-19 14:50] LABS: B Type Natriuretic Peptide 145 pg/mL (<100)
[2021-12-19] MEDS: 0.9 % Sodium Chloride 1,000 ML 999 ML IV (15:10)
[2021-12-19 15:33] LABS: D Dimer High Sensitivity 237 NG/ML
--- NOTE | 2021-12-19 15:42 | PC.NURSE ---
With pt's permission daughter Naa was updated on plan of care. Awaiting second troponin and orthostatic VS at this time.
--- NOTE | 2021-12-19 17:28 | P.HPHOSP_ITS ---
History of Present Illness Date of Service: 12/19/21 Chief Complaint: syncope 81M presented with syncope. Patient is very active normally, he was out today morning his lawn, describes feeling overheated, thirsty. He went inside and sat down in a chair strep status legs and loss consciousness. His loss of consc iousness this was brief, few seconds. called EMS. When EMS arrived patient had another episode of loss of consciousness at which point his pulse was undetectable. He quickly recovered. Patient denies chest pain, shortness of breath, fever, chills. He has had episodes of syncope in the past. Review of Systems Review of Systems: Constitutional: Denies fever, denies Chills Eyes: denies blurry vision ENT: denies sore throat CVS: denies chest pain Respiratory: Denies dyspnea GI: no abdominal pain : denies dysuria MSK: denies neck pain Skin: denies rash Neuro: denies specific motor weakness Psych: denies suicidal ideation Endocrine: denies heat/cold intolerance Hematologic: denies easy bleeding Allergy: denies hives [facility] Medical History Abnormal echocardiogram Ambulates with cane Arthritis BPH (benign prostatic hyperplasia) Cerebrovascular accident COPD (chronic obstructive pulmonary disease) COVID-19 vaccine series completed CVA (cerebrovascular accident) GUEVARA (dyspnea on exertion) Essential hypertension Hard of hearing History of acute inferior wall myocardial infarction History of smoking at least 1 pack per day for at least 30 years Hyperlipidemia Ischemic cardiomyopathy Low back pain Nasal congestion Near syncope 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 Right bundle branch block Family History Other CAD (coronary artery disease) Surgical History H/O foot surgery H/O heart artery stent Previous back surgery S/P cardiac catheterization Social History Household Members: Spouse Housing: House Are you a primary care management coordinator to a significant other at home: No Do you presently have visiting nurse or other home services: No Alcohol intake: never Patient Tobacco Use Status: Former Tobacco user Quit Date: 2015 Tobacco use type: Cigarette Cigarette Packs Per Day: 1 Cigarettes Per Day: 20.0 Years Smoked: 30 e-Cigarette/Vaping Use: Former Use Advance Directives: Yes Advance Directives on File: Yes Advance Directives Date on File: 07/18/21 service: Yes Current occupational status: retired Meds Allergies Allergy/AdvReac Type Severity Reaction Status Date / Time bee pollen [bee stings] Allergy Severe Anaphylaxis Verified 12/15/21 14:06 Active Medications: Current Medications Pharmacy Consult (Consult Rx Perform Med Rec) 1 each MISCELLANE ONCE PRN PRN Reason: Consult order Home Medications Medication Instructions Recorded Confirmed Last Taken Type tamsulosin 0.4 mg capsule 0.4 mg PO BEDTIME 06/20/20 12/01/21 08/02/21 History cetirizine 10 mg capsule 10 mg PO BEDTIME PRN 11/19/20 12/01/21 08/02/21 History metoprolol succinate 25 mg 25 mg PO DAILY 02/10/21 12/01/21 08/03/21 History tablet,extended release 24 hr atorvastatin 80 mg tablet 80 mg PO BEDTIME 02/22/21 12/01/21 08/02/21 History latanoprost 0.005 % eye drops 1 drp OPHTHALMIC (EYE) BEDTIME 02/22/21 12/01/21 08/02/21 History Physical Exam Vital Signs and Narrative: Vital Signs: Last Vital Signs Temp 98.0 F 12/19/21 14:23 Pulse 74 12/19/21 15:07 Resp 18 12/19/21 15:07 BP 156/76 H 12/19/21 15:07 Pulse Ox 98 12/19/21 15:07 BMI result Body Mass Index 26.4 General: no acute distress HEENT: atraumatic, Hard of hearing Neck: normal to visual inspection CVS: S1, S2, RRR Resp: CTA bilateral Chest: non tender GI: soft, non tender, non distended : no CVA tenderness Skin: no rashes Extremities: no edema Neuro: Oriented X3, grossly intact Psych: cooperative Results Labs CBC and Chem 7: 12/19/21 13:55 12/19/21 13:55 Labs: Laboratory Results - last 24 hr 12/19/21 12/19/21 12/19/21 13:55 13:55 13:55 MCV 92.8 MCH 30.3 MCHC 32.6 RDW 13.3 Plt Count 252 MPV 10.1 Immature Gran % (Auto) 0.2 Neut % (Auto) 77.4 H Lymph % (Auto) 9.3 L [place] % (Auto) 9.5 Eos % (Auto) 2.8 Baso % (Auto) 0.8 Lymph # (Auto) 0.9 L [place] # (Auto) 0.9 Eos # (Auto) 0.3 Baso # (Auto) 0.1 Abs Immat Gran (auto) 0.02 Absolute Neuts (auto) 7.5 Absolute Nucleated RBC 0.000 Nucleated RBC % (auto) 0.0 PT 13.4 H INR 1.2 H APTT 26.9 D-Dimer High Sensitivty 237 Anion Gap 11 L Estim Creat Clear Calc 43.3 Estimated GFR 53 Random Glucose 107 Calcium 8.5 Total Bilirubin 0.6 AST 19 ALT 15 Alkaline Phosphatase 97 Total Creatine Kinase 196 H Troponin I High Sens B-Natriuretic Peptide Total Protein 6.2 L Albumin 3.5 COVID-19 ([facility]) COVID-19 Clin Com Influenza Type A ([place]) Influenza Type B ([place]) Influenza A & B Note 12/19/21 12/19/21 12/19/21 13:55 13:55 14:21 MCV MCH MCHC RDW Plt Count MPV Immature Gran % (Auto) Neut % (Auto) Lymph % (Auto) [place] % (Auto) Eos % (Auto) Baso % (Auto) Lymph # (Auto) [place] # (Auto) Eos # (Auto) Baso # (Auto) Abs Immat Gran (auto) Absolute Neuts (auto) Absolute Nucleated RBC Nucleated RBC % (auto) PT INR APTT D-Dimer High Sensitivty Anion Gap Estim Creat Clear Calc Estimated GFR Random Glucose Calcium Total Bilirubin AST ALT Alkaline Phosphatase Total Creatine Kinase Troponin I High Sens 16.5 B-Natriuretic Peptide 145 H Total Protein Albumin COVID-19 (HUGO) COVID-19 Clin Com Influenza Type A ([place]) Negative Influenza Type B ([place]) Negative Influenza A & B Note See Note 12/19/21 14:21 MCV MCH MCHC RDW Plt Count MPV Immature Gran % (Auto) Neut % (Auto) Lymph % (Auto) [place] % (Auto) Eos % (Auto) Baso % (Auto) Lymph # (Auto) [place] # (Auto) Eos # (Auto) Baso # (Auto) Abs Immat Gran (auto) Absolute Neuts (auto) Absolute Nucleated RBC Nucleated RBC % (auto) PT INR APTT D-Dimer High Sensitivty Anion Gap Estim Creat Clear Calc Estimated GFR Random Glucose Calcium Total Bilirubin AST ALT Alkaline Phosphatase Total Creatine Kinase Troponin I High Sens B-Natriuretic Peptide Total Protein Albumin COVID-19 (HUGO) Negative COVID-19 Clin Com See Note Influenza Type A ([place]) Influenza Type B ([place]) Influenza A & B Note Imaging Radiologist's Impressions: Impressions Head CT 12/19/21 16:15 IMPRESSION: No acute intracranial pathology. No cervical spine fracture or malalignment. Cervical Spine CT 12/19/21 16:16 IMPRESSION: No acute intracranial pathology. No cervical spine fracture or malalignment. Assessment and Plan (1) Ischemic cardiomyopathy: Status: Acute Plan 81-year-old male presented with syncope syncope most likely orthostatic hypotension in setting of dehydration from being outside in the heat however, patient has a history of ischemic cardiomyopathy and is at risk for arrhythmia monitor on telemetry Cardiology eval COPD denies shortness of breath, stable ischemic cardiomyopathy aspirin, statin, Toprol, lisinopril BPH Flomax history of partial complex seizures Keppra DVT prophylaxis with Lovenox full code Quality Stroke Does the patient have a stroke diagnosis?: No VTE Prior VTE?: No VTE Risk Level:: Medical - moderate - high VTE Device Contraindication: Treatment Not Indicated VTE Drug Contraindication: N/A - Med Ordered
--- NOTE | 2021-12-19 18:00 | PHA.MEDREC ---
Addendum entered by Mitzy Katz [facility] 12/19/21 19:20: patients raissa called back and read the list of what he is taking. pt is no longer on keppra or plavix ( nose bleeds). added ceterizine and isosobide. provider also contacted. Original Note: Pharmacy Consult ? Medication Reconciliation Pharmacy has completed the medication reconciliation.Spoke with patient in the ED and he states he takes 3 medications in the morning and 4 at bedtime. [facility] Also reached out the patients but she has not called back yet.
[2021-12-19 18:59] LABS: Troponin-I High Sensitivity 18.7 ng/L (<3.5-35.0)
[2021-12-19] MEDS: Loratadine 10 MG TABLET PO (22:11)
[2021-12-19] MEDS: Tamsulosin HCL 0.4 MG CAPSULE PO (22:11)
[2021-12-19] MEDS: Aspirin Enteric Coated 81 MG TABLET.DR PO (22:11)
[2021-12-19] MEDS: Atorvastatin Calcium 80 MG TABLET PO (22:11)
--- NOTE | 2021-12-19 22:56 | PC.NURSE ---
Report given to DORYS Bangura in Overflow unit ED.
[2021-12-20 04:04] VITALS: BP 175/73; PULSE 74; RESP 16; TEMP 36.6; O2SAT 97
--- NOTE | 2021-12-20 04:47 | PC.NURSE ---
PT TO ED OVERFLOW AT 2300 A&O X3. DENIES PAIN. MONITOR SHOWS NSR, 70'S, NO ECTOPY. BP 192/80, 187/84 ON ARRIVAL AND HAS BEEN 160'S-170'S/80'S SINCE. DR OLIVAS AWARE OF BP'S. WILL WATCH.
[2021-12-20] MEDS: Enoxaparin Sodium 40 MG/0.4 ML SYRINGE SUBCUT (05:59)
[2021-12-20 07:26] LABS: Hematocrit 37.1 % (42.0-52.0); Mean Corpuscular HGB Conc 32.3 g/dl (31.0-36.0); Mean Corpuscular Hemoglobin 29.5 pg (27.0-33.0); Mean Corpuscular Volume 91.2 fL (80.0-98.0); Mean Platelet Volume 9.7 fL (9.4-12.4); Platelet Count 259 X10*3/uL (160-400); Red Blood Count 4.07 X10*6/uL (4.60-5.80); Red Cell Distribution Width 13.3 % (11.0-16.0)
[2021-12-20] MEDS: 0.9 % Sodium Chloride Flush 3 ML SYRINGE IVFLUSH ×2 (07:42)
[2021-12-20 07:50] LABS: Anion Gap 9 (12-20); Blood Urea Nitrogen 11 mg/dL (9-16); Calcium 8.9 mg/dL (8.4-10.2); Carbon Dioxide 27 mmol/L (22-29); Chloride 108 mmol/L (96-108); Creatinine Clr Calc Pharmacy 52.3; Estimated Glomerular Filt Rate > 60; Glucose Fasting 91 mg/dL (60-99); Potassium 4.5 mmol/L (3.3-5.1); Sodium 139 mmol/L (135-145)
[2021-12-20 08:09] VITALS: BP 169/74; PULSE 74; RESP 19; TEMP 36.2; O2SAT 98
[2021-12-20] MEDS: Isosorbide Mononitrate 30 MG TAB.ER.24H PO (09:36)
[2021-12-20] MEDS: lisinopriL 5 MG TABLET PO (09:37)
[2021-12-20] MEDS: Metoprolol Succinate ER 25 MG TAB.ER.24H PO (09:40)
--- NOTE | 2021-12-20 09:51 | P.CONCA_ITS ---
History of Present Illness History of Present Illness Date of Service: 12/20/21 Chief complaint: Syncope Narrative: This is a cardiology consultation regarding syncopal episode. Patient is well known to us. He states that he was mowing his lawn and he feels he did probably a bit too much. Then he felt overheated and thirsty. He went inside his house and sat down and then it seems he briefly lost consciousness. He denies any other complaints like chest pain or palpitations or shortness of breath or in fact any other cardiac related issues. Today states that he is completely nor mal. He feels somewhat ' phlegmy'. Review of Systems Review of Systems: Yes all other systems are reviewed and are negative Constitutional: Constitutional: Reports as per HPI Eyes: Eyes: Reports as per HPI ENT: Reports as per HPI Cardiovascular: Cardiovascular: Reports as per HPI, Denies acrocyanosis, Denies cool extremities, Denies chest pain, Denies leg edema, Denies lightheadedness, Denies palpitations and Denies dyspnea Respiratory: Respiratory: Reports as per HPI, Reports no additional respiratory complaints and Denies dyspnea Gastrointestinal: Gastrointestinal: Reports as per HPI and Reports no additional gastrointestinal complaints Genitourinary: Genitourinary: Reports no additional male genitourinary complaints and Reports as per HPI Musculoskeletal: Musculoskeletal: Reports no additional musculoskeletal complaints and Reports as per HPI Integumentary/Breasts: Skin/Breast: Reports system reviewed and no additional complaints, except as docu Neurologic: Reports system reviewed and no additional complaints, except as documented and Reports as per HPI Psychiatric: Psychiatric: Reports no additional psychiatric complaints and Reports as per HPI Endocrine: Endocrine: Reports no additional endocrine complaints, Reports as per HPI and Denies palpitations Hematologic/Lymphatic: Hematologic/Lymphatic: Reports no additional hematologic/lymphatic complaints and Reports as per HPI Allergic/Immunologic: Allergic/Immunologic: Reports no additional allergic/immunologic complaints and Reports as per HPI [facility] Past Medical History Medical History Abnormal echocardiogram Ambulates with cane Arthritis BPH (benign prostatic hyperplasia) Cerebrovascular accident COPD (chronic obstructive pulmonary disease) COVID-19 vaccine series completed CVA (cerebrovascular accident) GUEVARA (dyspnea on exertion) Essential hypertension Hard of hearing History of acute inferior wall myocardial infarction History of smoking at least 1 pack per day for at least 30 years Hyperlipidemia Ischemic cardiomyopathy Low back pain Nasal congestion Near syncope 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 Right bundle branch block Family History Family History Other CAD (coronary artery disease) Surgical History Surgical History H/O foot surgery H/O heart artery stent Previous back surgery S/P cardiac catheterization Social History Social History Household Members: Spouse Housing: House Are you a primary medicare sales executive to a significant other at home: No Do you presently have visiting nurse or other home services: No Alcohol intake: never Patient Tobacco Use Status: Former Tobacco user Quit Date: 2015 Tobacco use type: Cigarette Cigarette Packs Per Day: 1 Cigarettes Per Day: 20.0 Years Smoked: 30 e-Cigarette/Vaping Use: Former Use Use of substances other than those prescribed or required for medical reasons: No Advance Directives: Yes Advance Directives on File: Yes Advance Directives Date on File: 07/18/21 service: Yes Current occupational status: retired [employer] Allergies Allergy/AdvReac Type Severity Reaction Status Date / Time bee pollen [bee stings] Allergy Severe Anaphylaxis Verified 12/15/21 14:06 Active Medications: Current Medications Acetaminophen (Acetaminophen 325 Mg Tablet) 650 mg PO Q6H PRN PRN Reason: Pain, Mild (Pain Scale 1-3) Albuterol Sulfate (Albuterol Sulfate 90 Mcg 8 Gm Inhaler) 2 puff INHALE Q6H PRN PRN Reason: Shortness Of Breath Aspirin (Aspirin Enteric Coated 81 Mg Tablet.) 81 mg PO BEDTIME [facility] Last Admin: 12/19/21 22:11 Dose: 81 mg Documented by: Atorvastatin Calcium (Atorvastatin Calcium 80 Mg Tablet) 80 mg PO BEDTIME [facility] Last Admin: 12/19/21 22:11 Dose: 80 mg Documented by: Enoxaparin Sodium (Enoxaparin Sodium 40 Mg/0.4 Ml Syringe) 40 mg SUBCUT Q24H [facility] Last Admin: 12/20/21 05:59 Dose: 40 mg Documented by: Isosorbide Mononitrate (Isosorbide Mononitrate 30 Mg Tab.Er.24h) 30 mg PO DAILY [facility]; Protocol Last Admin: 12/20/21 09:36 Dose: 30 mg Documented by: Latanoprost (Latanoprost 0.005 % Ophth Mikala 2.5 Ml Drops) 1 drop EYE-BOTH BEDTIME [facility] Last Admin: 12/19/21 22:11 Dose: Not Given Documented by: Lisinopril (Lisinopril 5 Mg Tablet) 5 mg PO DAILY [facility]; Protocol Last Admin: 12/20/21 09:37 Dose: 5 mg Documented by: Loratadine (Loratadine 10 Mg Tablet) 10 mg PO BEDTIME [facility] Last Admin: 12/19/21 22:11 Dose: 10 mg Documented by: Metoprolol Succinate (Metoprolol Succinate Er 25 Mg Tab.Er.24h) 25 mg PO DAILY [facility]; Protocol Last Admin: 12/20/21 09:40 Dose: 25 mg Documented by: Pharmacy Consult (Consult Rx Perform Med Rec) 1 each MISCELLANE ONCE PRN PRN Reason: Consult order Sodium Chloride (0.9 % Sodium Chloride Flush 3 Ml Syringe) 3 ml IVFLUSH QSHIFT [facility] Last Admin: 12/20/21 07:42 Dose: 3 ml Documented by: Sodium Chloride (Sodium Chloride 0.65 % Nasal 44 Ml Sprbtl) 2 spray NOSTRIL-B BID PRN PRN Reason: Dry Skin Tamsulosin HCl (Tamsulosin Hcl 0.4 Mg Capsule) 0.4 mg PO BEDTIME [facility] Last Admin: 12/19/21 22:11 Dose: 0.4 mg Documented by: Home Medications Medication Instructions Recorded Confirmed Last Taken Type tamsulosin 0.4 mg capsule 0.4 mg PO BEDTIME 06/20/20 12/19/21 08/02/21 History metoprolol succinate 25 mg 25 mg PO DAILY 02/10/21 12/19/21 08/03/21 History tablet,extended release 24 hr atorvastatin 80 mg tablet 80 mg PO BEDTIME 02/22/21 12/19/21 12/18/21 History albuterol sulfate 90 mcg/actuation 2 puff INHALATION Q6H PRN 12/19/21 12/19/21 Unknown History aerosol inhaler aspirin 81 mg tablet,delayed 81 mg PO BEDTIME 12/19/21 12/19/21 12/18/21 History release cetirizine 10 mg tablet 10 mg PO BEDTIME 12/19/21 12/19/21 12/18/21 History isosorbide mononitrate 30 mg 30 mg PO DAILY 12/19/21 12/19/21 Unknown History tablet,extended release 24 hr latanoprost 0.005 % eye drops 1 drp OPHTHALMIC (EYE) BEDTIME 12/19/21 12/19/21 12/18/21 History sodium chloride 0.65 % nasal spray 2 spray INTRANASAL BID PRN 12/19/21 12/19/21 Unknown History aerosol (Saline Nasal) Physical Exam Vital Signs: Vital Signs: Last Vital Signs Temp 97.2 F 12/20/21 08:09 Pulse 74 12/20/21 08:09 Resp 19 12/20/21 08:09 BP 169/74 H 12/20/21 08:09 Pulse Ox 98 12/20/21 08:09 BMI result Body Mass Index 26.4 Const: General: comfortable and no acute distress Orientation/consciousness: patient oriented x3 HEENT: Other: Unremarkable Head: Yes normal to inspection Neck: Neck: Yes normal visual inspection Chest: Chest palpation & inspection: normal inspection of the chest Resp: Auscultation: clear to auscultation bilaterally Cardio: Palpation: normal PMI Heart sounds: S1 normal heart sound present, S2 normal heart sound present, no gallops, no murmurs and no rubs GI: Palpation (GI): Soft to palpation Back/Spine/Pelvis: Other: unremarkable Skin: General skin exam: no rashes or lesions noted Neuro: General: patient oriented x3 Extrem: General: Yes normal to inspection Psych: Mental Status: mental status grossly normal Objective Labs and Meds Result diagrams: 12/20/21 07:12 12/20/21 07:12 Lab results: Laboratory Results - last 24 hr 12/19/21 12/19/21 12/19/21 13:55 13:55 13:55 WBC 9.7 RBC 3.63 L Hgb 11.0 L Hct 33.7 L MCV 92.8 MCH 30.3 MCHC 32.6 RDW 13.3 Plt Count 252 MPV 10.1 Immature Gran % (Auto) 0.2 Neut % (Auto) 77.4 H Lymph % (Auto) 9.3 L [place] % (Auto) 9.5 Eos % (Auto) 2.8 Baso % (Auto) 0.8 Lymph # (Auto) 0.9 L [place] # (Auto) 0.9 Eos # (Auto) 0.3 Baso # (Auto) 0.1 Abs Immat Gran (auto) 0.02 Absolute Neuts (auto) 7.5 Absolute Nucleated RBC 0.000 Nucleated RBC % (auto) 0.0 PT 13.4 H INR 1.2 H APTT 26.9 D-Dimer High Sensitivty 237 Sodium 136 Potassium 4.8 D Chloride 106 Carbon Dioxide 24 Anion Gap 11 L BUN 11 Creatinine 1.29 Estim Creat Clear Calc 43.3 Estimated GFR 53 Random Glucose 107 Fasting Glucose Calcium 8.5 Magnesium Total Bilirubin 0.6 AST 19 ALT 15 Alkaline Phosphatase 97 Total Creatine Kinase 196 H Troponin I High Sens B-Natriuretic Peptide Total Protein 6.2 L Albumin 3.5 COVID-19 ([facility]) COVID-19 Clin Com Influenza Type A ([place]) Influenza Type B ([place]) Influenza A & B Note 12/19/21 12/19/21 12/19/21 13:55 13:55 14:21 WBC RBC Hgb Hct MCV MCH MCHC RDW Plt Count MPV Immature Gran % (Auto) Neut % (Auto) Lymph % (Auto) [place] % (Auto) Eos % (Auto) Baso % (Auto) Lymph # (Auto) [place] # (Auto) Eos # (Auto) Baso # (Auto) Abs Immat Gran (auto) Absolute Neuts (auto) Absolute Nucleated RBC Nucleated RBC % (auto) PT INR APTT D-Dimer High Sensitivty Sodium Potassium Chloride Carbon Dioxide Anion Gap BUN Creatinine Estim Creat Clear Calc Estimated GFR Random Glucose Fasting Glucose Calcium Magnesium Total Bilirubin AST ALT Alkaline Phosphatase Total Creatine Kinase Troponin I High Sens 16.5 B-Natriuretic Peptide 145 H Total Protein Albumin COVID-19 ([facility]) COVID-19 Clin Com Influenza Type A ([place]) Negative Influenza Type B ([place]) Negative Influenza A & B Note See Note 12/19/21 12/19/21 12/20/21 14:21 18:35 07:12 WBC 8.0 RBC 4.07 L Hgb 12.0 L Hct 37.1 L MCV 91.2 MCH 29.5 MCHC 32.3 RDW 13.3 Plt Count 259 MPV 9.7 Immature Gran % (Auto) Neut % (Auto) Lymph % (Auto) [place] % (Auto) Eos % (Auto) Baso % (Auto) Lymph # (Auto) [place] # (Auto) Eos # (Auto) Baso # (Auto) Abs Immat Gran (auto) Absolute Neuts (auto) Absolute Nucleated RBC 0.000 Nucleated RBC % (auto) 0.0 PT INR APTT D-Dimer High Sensitivty Sodium Potassium Chloride Carbon Dioxide Anion Gap BUN Creatinine Estim Creat Clear Calc Estimated GFR Random Glucose Fasting Glucose Calcium Magnesium Total Bilirubin AST ALT Alkaline Phosphatase Total Creatine Kinase Troponin I High Sens 18.7 B-Natriuretic Peptide Total Protein Albumin COVID-19 ([facility]) Negative COVID-19 Clin Com See Note Influenza Type A ([place]) Influenza Type B ([place]) Influenza A & B Note 12/20/21 07:12 WBC RBC Hgb Hct MCV MCH MCHC RDW Plt Count MPV Immature Gran % (Auto) Neut % (Auto) Lymph % (Auto) [place] % (Auto) Eos % (Auto) Baso % (Auto) Lymph # (Auto) [place] # (Auto) Eos # (Auto) Baso # (Auto) Abs Immat Gran (auto) Absolute Neuts (auto) Absolute Nucleated RBC Nucleated RBC % (auto) PT INR APTT D-Dimer High Sensitivty Sodium 139 Potassium 4.5 Chloride 108 Carbon Dioxide 27 Anion Gap 9 L BUN 11 Creatinine 1.07 Estim Creat Clear Calc 52.3 Estimated GFR > 60 Random Glucose Fasting Glucose 91 Calcium 8.9 Magnesium 2.0 Total Bilirubin AST ALT Alkaline Phosphatase Total Creatine Kinase Troponin I High Sens B-Natriuretic Peptide Total Protein Albumin COVID-19 ([facility]) COVID-19 Clin Com Influenza Type A ([place]) Influenza Type B ([place]) Influenza A & B Note ECG Interpretation: EKG with sinus rhythm at 62/Min; nonspecific interventricular conduction defect. Can not exclude old inferior/lateral infarct. Overall, no changes compared to before. Telemetry with sinus rhythm. One 5 beat run of NSVT. Imaging Radiologist's impression: Impressions Head CT 12/19/21 16:15 IMPRESSION: No acute intracranial pathology. No cervical spine fracture or malalignment. Cervical Spine CT 12/19/21 16:16 IMPRESSION: No acute intracranial pathology. No cervical spine fracture or malalignment. Assessment and Plan (1) Syncope: Status: Acute Could be from dehydration related to working in hot weather. Less likely arrhythmias. We will arrange a Holter as an outpatient. Otherwise no specific management required. Troponin levels are within range. Cardiac BNP is 145. (2) Atherosclerotic cardiovascular disease: Status: Acute Cardiac catheterization data reviewed (11/2020). He had ostial occlusion of right coronary artery.? Moderate mid LAD disease.? Severe mid circumflex and OM1 stenosis with [id number] collaterals to RCA.? Status post drug-eluting stent to the mid circumflex.? Continue aspirin. No active anginal type symptoms. This does not appear to be an acute coronary event. (3) Ischemic cardiomyopathy: Status: Acute In the most recent echocardiogram, LVEF 35-40%.? Wall motion abnormalities related to underlying CAD.? Clinically, he does not have any? heart failure symptoms at all.? Continue beta-blockers, lisinopril.? Blood pressure was normal during office visit but has been high during this visit in the hospital. Will arrange follow-up to monitor this. May need medication changes. (4) Stenosis of right internal carotid artery: Status: Acute Status post carotid endarterectomy. Procedures Date of Service Date of Service: 12/20/21
--- NOTE | 2021-12-20 09:54 | MHC.CM.PN ---
Patient lives in a house with his /HCP/Vikki @ [phone] and he uses a cane to assist with mobility. Home/no services is the goal for dc and CM has initiated and will follow for dc planning. SIMPSON has been addressed and original will be given to Patient. PCP is Dr. Alejandra Howell and Patient has received Moderna/Covid vax X3.
--- NOTE | 2021-12-20 10:12 | P.DS_ITS ---
DS: Providers Provider Date of Service: 12/20/21 Date of admission: 12/19/21 17:27 Primary care physician: Alejandra Howell NP Consults: 12/19/21 17:27 Consult to Cardiology Routine Consulting Provider: Christopher Carmona Reason for consultation: recurrent syncope, reduced Ef, cad DS: Diagnosis Discharge Diagnosis (1) Syncope: Status: Acute (2) Atherosclerotic cardiovascular disease: Status: Acute (3) Ischemic cardiomyopathy: Status: Acute (4) Stenosis of right internal carotid artery: Status: Acute DS: Summary Hospital Course Hospital Course: from initial hpi: Chief Complaint: syncope 81M? presented with syncope.? Patient is very active normally, he was out today morning his lawn, describes feeling overheated, thirsty.? He went inside and sat down in a chair strep status legs and loss consciousness.? His loss of consciousness this was brief, few seconds.? called EMS.? When EMS arrived patient had another episode of loss of consciousness at which point his pulse was? undetectable.? He quickly recovered.? Patient denies chest pain, shortness of breath, fever, chills.? He has had episodes of syncope in the past. hospital course: Patient was observed for syncopal episode. He did have a 5 beat and SVT, but most likely is syncope was due to dehydration in the setting of being outside in the heat. However, patient is high risk due to ischemic cardiomyopathy, therefore, he will be following up with Cardiology for Holter monitor. For COPD he denies any shortness of breath and is stable. For ischemic cardiomyopathy will continue on aspirin, Plavix, statin, Toprol, lisinopril. For his BPH will continue Flomax. 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 Patient is feeling back to baseline and will be discharged home. Time Spent with Patient Time attestation: Total time spent providing and/or coordinating discharge services: Discharge coordination time: Greater than 30 minutes Quality: Safe Use of Opioids Does Pt have an Active Cancer Diagnosis on the Problem List?: No Quality: Stroke Does the patient have a stroke diagnosis?: No Physical Exam Vital Signs: Vital Signs: Last Vital Signs Temp 97.2 F 12/20/21 08:09 Pulse 74 12/20/21 08:09 Resp 19 12/20/21 08:09 BP 169/74 H 12/20/21 08:09 Pulse Ox 98 12/20/21 08:09 BMI result Body Mass Index 26.4 General: AO X 3, no acute distress Resp: CTA bilateral, no accessory muscles used CVS: S1,S2,RRR GI: soft, non tender, non distended Neuro: motor grossly intact, alert Psych: appropriate affect, appropriate insight DS: Data Data Completed and Pending Completed studies during hospitalization [Text1]: Procedures Extirpation of Matter from Right Common Carotid Artery, Open Approach (07/18/21) Extirpation of Matter from Right Internal Carotid Artery, Open Approach (07/18/21) Introduction of Other Thrombolytic into Peripheral Vein, Percutaneous Approach (10/10/20) Supplement Right Common Carotid Artery with Synthetic Substitute, Open Approach (07/18/21) Supplement Right Internal Carotid Artery with Synthetic Substitute, Open Approach (07/18/21) Labs on day of discharge: Laboratory Results - last 24 hr 12/19/21 12/19/21 12/19/21 13:55 13:55 13:55 WBC 9.7 RBC 3.63 L Hgb 11.0 L Hct 33.7 L MCV 92.8 MCH 30.3 MCHC 32.6 RDW 13.3 Plt Count 252 MPV 10.1 Immature Gran % (Auto) 0.2 Neut % (Auto) 77.4 H Lymph % (Auto) 9.3 L [place] % (Auto) 9.5 Eos % (Auto) 2.8 Baso % (Auto) 0.8 Lymph # (Auto) 0.9 L [place] # (Auto) 0.9 Eos # (Auto) 0.3 Baso # (Auto) 0.1 Abs Immat Gran (auto) 0.02 Absolute Neuts (auto) 7.5 Absolute Nucleated RBC 0.000 Nucleated RBC % (auto) 0.0 PT 13.4 H INR 1.2 H APTT 26.9 D-Dimer High Sensitivty 237 Sodium 136 Potassium 4.8 D Chloride 106 Carbon Dioxide 24 Anion Gap 11 L BUN 11 Creatinine 1.29 Estim Creat Clear Calc 43.3 Estimated GFR 53 Random Glucose 107 Fasting Glucose Calcium 8.5 Magnesium Total Bilirubin 0.6 AST 19 ALT 15 Alkaline Phosphatase 97 Total Creatine Kinase 196 H Troponin I High Sens B-Natriuretic Peptide Total Protein 6.2 L Albumin 3.5 COVID-19 ([facility]) COVID-19 Clin Com Influenza Type A ([place]) Influenza Type B ([place]) Influenza A & B Note 12/19/21 12/19/21 12/19/21 13:55 13:55 14:21 WBC RBC Hgb Hct MCV MCH MCHC RDW Plt Count MPV Immature Gran % (Auto) Neut % (Auto) Lymph % (Auto) [place] % (Auto) Eos % (Auto) Baso % (Auto) Lymph # (Auto) [place] # (Auto) Eos # (Auto) Baso # (Auto) Abs Immat Gran (auto) Absolute Neuts (auto) Absolute Nucleated RBC Nucleated RBC % (auto) PT INR APTT D-Dimer High Sensitivty Sodium Potassium Chloride Carbon Dioxide Anion Gap BUN Creatinine Estim Creat Clear Calc Estimated GFR Random Glucose Fasting Glucose Calcium Magnesium Total Bilirubin AST ALT Alkaline Phosphatase Total Creatine Kinase Troponin I High Sens 16.5 B-Natriuretic Peptide 145 H Total Protein Albumin COVID-19 ([place]) COVID[address] Influenza Type A ([place]) Negative Influenza Type B ([place]) Negative Influenza A & B Note See Note 12/19/21 12/19/21 12/20/21 14:21 18:35 07:12 WBC 8.0 RBC 4.07 L Hgb 12.0 L Hct 37.1 L MCV 91.2 MCH 29.5 MCHC 32.3 RDW 13.3 Plt Count 259 MPV 9.7 Immature Gran % (Auto) Neut % (Auto) Lymph % (Auto) [place] % (Auto) Eos % (Auto) Baso % (Auto) Lymph # (Auto) [place] # (Auto) Eos # (Auto) Baso # (Auto) Abs Immat Gran (auto) Absolute Neuts (auto) Absolute Nucleated RBC 0.000 Nucleated RBC % (auto) 0.0 PT INR APTT D-Dimer High Sensitivty Sodium Potassium Chloride Carbon Dioxide Anion Gap BUN Creatinine Estim Creat Clear Calc Estimated GFR Random Glucose Fasting Glucose Calcium Magnesium Total Bilirubin AST ALT Alkaline Phosphatase Total Creatine Kinase Troponin I High Sens 18.7 B-Natriuretic Peptide Total Protein Albumin COVID-19 ([place]) Negative COVID-19 [facility] Com See Note Influenza Type A ([place]) Influenza Type B ([place]) Influenza A & B Note 12/20/21 07:12 WBC RBC Hgb Hct MCV MCH MCHC RDW Plt Count MPV Immature Gran % (Auto) Neut % (Auto) Lymph % (Auto) [place] % (Auto) Eos % (Auto) Baso % (Auto) Lymph # (Auto) [place] # (Auto) Eos # (Auto) Baso # (Auto) Abs Immat Gran (auto) Absolute Neuts (auto) Absolute Nucleated RBC Nucleated RBC % (auto) PT INR APTT D-Dimer High Sensitivty Sodium 139 Potassium 4.5 Chloride 108 Carbon Dioxide 27 Anion Gap 9 L BUN 11 Creatinine 1.07 Estim Creat Clear Calc 52.3 Estimated GFR > 60 Random Glucose Fasting Glucose 91 Calcium 8.9 Magnesium 2.0 Total Bilirubin AST ALT Alkaline Phosphatase Total Creatine Kinase Troponin I High Sens B-Natriuretic Peptide Total Protein Albumin COVID-19 ([facility]) COVID-19 Clin Com Influenza Type A ([place]) Influenza Type B ([place]) Influenza A & B Note Discharge Plan Discharge Patient Disposition: Home, Self-Care Discharge Diagnosis: syncope Referrals: Alejandra Howell, CONTROLLED [employer]A CHECKER [Primary Care Provider] - 1 Week Discharge Medications: Continued lisinopril 5 mg tablet 5 mg PO DAILY Qty: 30 5RF tamsulosin 0.4 mg Capsule 0.4 mg PO BEDTIME 0RF atorvastatin 80 mg Tablet 80 mg PO BEDTIME 0RF albuterol sulfate 90 mcg/actuation Hfa Aerosol Inhaler 2 puff INHALATION Q6H PRN (Reason: Shortness Of Breath) 0RF Saline Nasal 0.65 % Aerosol,[place] 2 spray INTRANASAL BID PRN (Reason: Dry Skin) 0RF Rx Instructions: while awake aspirin 81 mg tablet,delayed release (DR/EC) 81 mg PO BEDTIME 0RF latanoprost 0.005 % Drops 1 drp OPHTHALMIC (EYE) BEDTIME 0RF cetirizine 10 mg Tablet 10 mg PO BEDTIME 0RF isosorbide mononitrate 30 mg Tablet Extended Release 24 Hr 30 mg PO DAILY 0RF metoprolol succinate 25 mg tablet extended release 24 hr 25 mg PO DAILY 0RF Discharge Orders: Discharge Order (Routine); Ordered 12/20/21 Ordered By: Steve Celestin Diet: advance to usual diet Activity on Discharge: As tolerated Stand Alone Forms: Patient Portal Discharge page Care Plan Goals: avoid further episodes Health Concerns: syncope Plan of Treatment: follow up cardio for holter Assessment: see above
--- NOTE | 2021-12-20 10:13 | PC.NURSE ---
pt seen by Dr. Carmona, plan of care discussed with pt. pt is medically cleared for discharge. no c/o chest pain/sob/dizziness/headache. vss.
--- NOTE | 2021-12-20 11:08 | MHC.CM.PN ---
Patient has been medically cleared for dc to home today, self care.
== END 2021-12-20 10:33 | disposition home or self-care (01) ==
LOC: HO.ED 14:02 → HO.EDOVER 17:32
PROVIDERS: Physician Assistant; Admitting Provider Internal Medicine; Emergency Provider Emergency Medicine Emergency Medical Services; PCP Nurse Practitioner Family; Visit Provider Internal Medicine
DX: R55 Syncope and collapse (principal); I25.10 Atherosclerotic heart disease of native coronary artery without angina pectoris; I25.5 Ischemic cardiomyopathy; T14.90XA Injury, unspecified, initial encounter; W01.0XXA Fall on same level from slipping, tripping and stumbling without subsequent striking against object, initial encounter; X30.XXXA Exposure to excessive natural heat, initial encounter; Y93.H9 Activity, other involving exterior property and land maintenance, building and construction; Y92.007 Garden or yard of unspecified non-institutional (private) residence as the place of occurrence of the external cause; Y99.8 Other external cause status; I25.2 Old myocardial infarction; I11.9 Hypertensive heart disease without heart failure; I45.10 Unspecified right bundle-branch block; E78.5 Hyperlipidemia, unspecified; Z87.891 Personal history of nicotine dependence; Z20.822 Contact with and (suspected) exposure to COVID-19; Z86.73 Personal history of transient ischemic attack (TIA), and cerebral infarction without residual deficits; Z95.5 Presence of coronary angioplasty implant and graft; Z98.890 Other specified postprocedural states; Z91.030 Bee allergy status; Z79.82 Long term (current) use of aspirin; Z79.899 Other long term (current) drug therapy
CPT/HCPCS: 36415; 70450; 72125; 80048; 80053; 82550; 83735; 83880; 84484; 85025; 85027; 85379; 85610; 85730; 87502; 87635; 93005; 96360; 96372; 99215; 99219; 99285; J1650

== ENCOUNTER → 2022-01-11 11:20 | Outpatient (REF) | payer OTHER, SELFPAY ==
--- NOTE | 2022-01-11 | HM_ITS ---
Conclusion: 1. Patient was monitor for total period of 3 days and 23 hours 2. Baseline rhythm was normal sinus rhythm with average heart of 65 beats per minute 3. No significant pauses or bradycardia noted 4. Total of 4928 PVCs accounting for 0.75% of total beats accounting for occasional PVCs 5. 3 total short runs 4 beats each of what appears to be SVT and SVT with aberrancy. 6. No patient reported events MTDD
== END ==
LOC: HO.CARD 11:20
PROVIDERS: PCP Nurse Practitioner Family; Visit Provider Internal Medicine
DX: I47.2 Ventricular tachycardia (principal)
CPT/HCPCS: 93242

== ENCOUNTER → 2022-04-06 12:31 | Outpatient (BNVA) | payer OTHER, SELFPAY | PROVIDERS: PCP Nurse Practitioner Family; Referring Provider Nurse Practitioner Family; Visit Provider Internal Medicine | DX: I25.10 Atherosclerotic heart disease of native coronary artery without angina pectoris (principal); I25.5 Ischemic cardiomyopathy; I65.21 Occlusion and stenosis of right carotid artery | CPT/HCPCS: 99212 ==

== ENCOUNTER 2022-06-27 12:32 | Outpatient (REF) | payer OTHER, SELFPAY ==
--- NOTE | ~2022-06-27 | US_ITS ---
EXAMINATION: US EXTRACRANIAL CAROTID DUPLEX, BILATERAL CLINICAL INFORMATION: Occlusion and stenosis of bilateral carotid arteries. Status post right carotid endarterectomy. COMPARISON: Ultrasound carotid bilateral 12/05/2021 TECHNIQUE: Real-time ultrasound and Doppler techniques (integrating B-mode 2-D vascular images, Doppler spectral analysis and color-flow Doppler imaging) were utilized to interrogate the extracranial carotid arteries, the vertebral arteries and proximal subclavian arteries bilaterally. The degree of stenosis is determined by criteria similar to NASCET. FINDINGS: RIGHT SIDE: 1. There is moderate atherosclerotic plaque seen in the bifurcation/proximal ICA region. 2. The common carotid artery PSV proximally is 79 cm/s and distally 33 cm/s. 3. The proximal internal carotid artery velocities are 43 cm/s systolic and 6 cm/s diastolic. 4. The proximal external carotid artery PSV is 648 cm/s. On previous exam, it measured 604 cm/s. 5. The vertebral artery shows antegrade flow. 6. The subclavian artery waveforms are normal. LEFT SIDE: 1. There is soft atherosclerotic plaque seen in the bifurcation/proximal ICA region. 2. The common carotid artery PSV proximally is 79 cm/s and distally 111 cm/s. 3. The proximal internal carotid artery velocities are 172 cm/s systolic and 25 cm/s diastolic. 4. The proximal external carotid artery PSV is 479 cm/s. On previous exam it measured 338 cm/s. 5. The vertebral artery shows antegrade flow. 6. The subclavian artery waveforms are normal. There is evidence of arrhythmia on bilateral neck waveforms. US/US carotid duplex BI IMPRESSION: 1. RIGHT: No hemodynamically significant stenosis seen in right carotid artery. It is unchanged to previous study. 2. LEFT: There is a moderate hemodynamically significant stenosis in the left internal carotid artery corresponding to 50-79% range stenosis, based on velocity criteria. It is unchanged to previous study. 3. There is arrhythmia on bilateral neck waveforms. 4. Normal antegrade flow seen in both vertebral arteries. 5. High peak systolic velocities in bilateral external carotid arteries.
== END 2022-06-27 12:33 | disposition home or self-care (01) ==
LOC: HO.US 12:32
PROVIDERS: Visit Provider Surgery Vascular Surgery
DX: I65.23 Occlusion and stenosis of bilateral carotid arteries (principal)
CPT/HCPCS: 93880

== ENCOUNTER → 2022-07-06 10:46 | Outpatient (BNVA) | payer OTHER, SELFPAY | PROVIDERS: PCP Nurse Practitioner Gerontology; Visit Provider Surgery Vascular Surgery | DX: I65.23 Occlusion and stenosis of bilateral carotid arteries (principal) | CPT/HCPCS: 99212 ==

== ENCOUNTER → 2022-09-14 12:32 | Outpatient (BNVA) | payer OTHER, SELFPAY | PROVIDERS: PCP Nurse Practitioner Gerontology; Referring Provider Nurse Practitioner Gerontology; Visit Provider Internal Medicine | DX: I25.10 Atherosclerotic heart disease of native coronary artery without angina pectoris (principal); I25.5 Ischemic cardiomyopathy; I65.21 Occlusion and stenosis of right carotid artery | CPT/HCPCS: 93005; 99212 ==

== ENCOUNTER 2023-02-04 04:56 | Emergency (ER) | payer OTHER, SELFPAY ==
[2023-02-04 05:03] VITALS: BP 154/70; BP 160/90; PULSE 64; PULSE 79; RESP 20; TEMP 36.6; O2SAT 99; BMI 26.0
--- NOTE | 2023-02-04 05:14 | ED_ITS ---
HPI - Fall General Chief Complaint: Fall Stated Complaint: Fall/left leg pain Time Seen by Provider: 02/04/23 04:58 Source: patient and EMS Mode of arrival: EMS Limitations: no limitations History of Present Illness HPI Narrative: 83-year-old male presents after an accidental ground level fall. Patient was at the top of the stairs when he decided to go back to bed any fell to the ground onto his left knee. Patient may have hit his head but is unclear. Denies any loss of consciousness. Denies any lightheadedness, chest pain, palpitation or other prodrome symptom. Believes it was mechanical fall. His symptoms currently are [id number]. Symptoms are worse with ambulation. Is no numbness or tingling. Patient denies any neck pain. However, upon transfer by EMS, he started to have some additional complaints and he was numb and tingling, abdominal pain. He denies any of this at this time. He denies any nausea vomiting lightheadedness. Patient is eating appropriately. Related Data Home Medications Medication Instructions Recorded Confirmed tamsulosin 0.4 mg capsule 0.4 mg PO BEDTIME 06/20/20 09/14/22 metoprolol succinate 25 mg 25 mg PO DAILY 02/10/21 09/14/22 tablet,extended release 24 hr atorvastatin 80 mg tablet 80 mg PO BEDTIME 02/22/21 09/14/22 aspirin 81 mg tablet,delayed 81 mg PO BEDTIME 12/19/21 09/14/22 release cetirizine 10 mg tablet 10 mg PO BEDTIME 12/19/21 09/14/22 isosorbide mononitrate 30 mg 30 mg PO DAILY 12/19/21 09/14/22 tablet,extended release 24 hr latanoprost 0.005 % eye drops 1 drp ophthalmic (eye) BEDTIME 12/19/21 09/14/22 sodium chloride 0.65 % nasal spray 2 spray intranasal BID PRN Dry Skin 12/19/21 09/14/22 aerosol (Saline Nasal) Previous Rx's Medication Instructions Recorded lisinopril 5 mg tablet 5 mg PO DAILY #30 tabs 10/27/20 Allergies Allergy/AdvReac Type Severity Reaction Status Date / Time bee pollen [bee stings] Allergy Severe Anaphylaxis Verified 02/04/23 05:03 Review of Systems Review of Systems: CONSTITUTIONAL: Denies weight loss, fever and chills. HEENT: Denies changes in vision and hearing. RESPIRATORY: Denies SOB and cough. CV: Denies palpitations no CP. GI: Denies abdominal pain, nausea, vomiting and diarrhea. : Denies dysuria and urinary frequency. MSK: Denies myalgia and joint pain. SKIN: Denies rash and pruritus. NEUROLOGICAL: Denies headache and syncope. PSYCHIATRIC: Denies recent changes in mood. Denies anxiety and depression. All other ROS are negative unless in HPI PMF Past Medical History Medical History (Updated 02/04/23 @ 05:19 by Quinn Gee MD) Abnormal echocardiogram Ambulates with cane Arthritis BPH (benign prostatic hyperplasia) Cerebrovascular accident COPD (chronic obstructive pulmonary disease) COVID-19 vaccine series completed CVA (cerebrovascular accident) GUEVARA (dyspnea on exertion) Essential hypertension Hard of hearing History of acute inferior wall myocardial infarction History of smoking at least 1 pack per day for at least 30 years Hyperlipidemia Ischemic cardiomyopathy Low back pain Nasal congestion Near syncope 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 Right bundle branch block Surgical History H/O foot surgery H/O heart artery stent Previous back surgery S/P cardiac catheterization S/P carotid endarterectomy (07/18/21) Family History Family History Other CAD (coronary artery disease) Social History Social History Household Members: Spouse Housing: House Are you a primary residential child care counselor to a significant other at home: No Do you presently have visiting nurse or other home services: No Alcohol intake: never Patient Tobacco Use Status: Former Tobacco user Quit Date: 2015 Tobacco use type: Cigarette Cigarette Packs Per Day: 1 Cigarettes Per Day: 20.0 Years Smoked: 30 e-Cigarette/Vaping Use: Former Use Advance Directives: Yes Advance Directives on File: Yes Advance Directives Date on File: 07/18/21 service: Yes Current occupational status: retired Physical Exam Vital Signs: Vital Signs: Last Vital Signs Temp 97.9 F 02/04/23 05:03 Pulse 64 02/04/23 05:03 Resp 20 02/04/23 05:03 BP 154/70 H 02/04/23 05:03 Pulse Ox 99 02/04/23 05:03 O2 Del Method Room Air 02/04/23 05:03 BMI result Body Mass Index 26.0 Course Course Course Narrative: The workup is complete. Is 6:36 a.m.. There is no acute traumatic injury. It appears that his fall was mechanical in nature. Unclear why his left leg gave out from under him though. is present. He was able to ambulate with a walker without any significant difficulty. Patient will be discharged home. Medications Administered Discontinued Medications Generic Name Dose Route Start Last Admin Trade Name Marcelo PRN Reason Stop Dose Admin Acetaminophen 975 mg 02/04/23 05:01 02/04/23 05:13 Acetaminophen 325 Mg Tablet PO 02/04/23 05:02 975 mg ONCE ONE Administration Medical Decision Making Medical Decision Making [facility] Narrative: 83-year-old male presents after an accidental fall. It appears to be mechanical in nature. Unclear whether he hit his head or not. Patient is on aspirin therapy. Upon transfer by EMS, he is placed in cervical collar. There is no neck injury. On my evaluation initially, there is no midline tenderness. He was able to rotate head without any significant difficulty. He denied any paresthesias. He was neurologically nonfocal. The collar was removed. Patient does complain of some left knee pain. Also in the process of being worked up, he developed a cough that was nonproductive. Lungs are clear to auscultation bilaterally. A chest x-ray has been ordered. Due to the questionable head injury, CT scan of the head is also ordered. Patient will get Tylenol as needed for pain relief. Differential diagnosis of the left knee includes sprain, strain, fracture, contusion. Possible head injury differential diagnosis includes subarachnoid hemorrhage, subdural hematoma, epidural hematoma, concussion, minor head injury. Differential Diagnosis Differential Diagnoses: The differential diagnosis associated with the presentation includes (See above) Independent Interpretation I performed an independent interpretation of an: Plain X-Ray (Chest: No acute cardiopulmonary disease, left knee, no acute traumatic injury) and CT Scan (Head: No acute traumatic injury. Age related volume loss) Radiology Impression Discussion of test interpretation with radiology: I have reviewed the radiologist's reading. Radiologist Impression: CT/CT head/brain wo IV con IMPRESSION: No acute intracranial pathology. Chronic small vessel ischemic disease and volume loss. ? Dictated By: Umer Lassiter MD Signed By: <Electronically signed by Umer Lassiter MD in [place]> 02/04/2327 DD/ TD/TT:? Pattern Chain Builder: TH Discharge Plan Discharge Clinical Impression: Accidental fall, Knee pain, left, Cough Patient Disposition: Home, Self-Care Instructions: Chronic Cough (ED), Knee Pain (ED), Fall Prevention for Older Adults (ED) Prescriptions: No Action lisinopril 5 mg tablet 5 mg PO DAILY Qty: 30 5RF tamsulosin 0.4 mg Capsule 0.4 mg PO BEDTIME atorvastatin 80 mg Tablet 80 mg PO BEDTIME Saline Nasal 0.65 % Aerosol,[place] 2 spray INTRANASAL BID PRN (Reason: Dry Skin) Rx Instructions: while awake aspirin 81 mg tablet,delayed release (DR/EC) 81 mg PO BEDTIME latanoprost 0.005 % Drops 1 drp OPHTHALMIC (EYE) BEDTIME cetirizine 10 mg Tablet 10 mg PO BEDTIME isosorbide mononitrate 30 mg Tablet Extended Release 24 Hr 30 mg PO DAILY metoprolol succinate 25 mg tablet extended release 24 hr 25 mg PO DAILY Referrals: Physician,Unknown J [Primary Care Provider] - (Primary care provider)
[2023-02-04 06:50] VITALS: BP 158/56; PULSE 63; RESP 16; O2SAT 98
== END 2023-02-04 06:52 | disposition home or self-care (01) ==
PROVIDERS: Emergency Provider Emergency Medicine
DX: M79.662 Pain in left lower leg (principal); S09.90XA Unspecified injury of head, initial encounter; W18.30XA Fall on same level, unspecified, initial encounter; Y93.9 Activity, unspecified; Y92.89 Other specified places as the place of occurrence of the external cause; Y99.9 Unspecified external cause status; R05.9 Cough, unspecified; Z91.81 History of falling
CPT/HCPCS: 70450; 71046; 73562; 99284

== ENCOUNTER 2023-02-08 14:46 | Inpatient (IN) | payer OTHER, SELFPAY ==
[2023-02-08] VITALS (8 sets, daily range): BP systolic 101–159; BP diastolic 42–65; PULSE 54–68; RESP 16–20; TEMP 36.6–36.9; O2SAT 95–97; BMI 26.6
--- NOTE | 2023-02-08 15:09 | ED.GENADULT ---
HPI - General Adult General Chief complaint: Altered Mental Status Stated complaint: WEAK,UNABLE TO EAT/DRINK,ALTERED PER EMS Time Seen by Provider: 02/08/23 14:57 Source: patient and EMS Mode of arrival: EMS Limitations: no limitations History of Present Illness HPI narrative: Patient comes to the emergency room via EMS from home. According to EMS, the patient's called 911 because the patient seemed to be confused, has had decreased p.o. intake for about a week. Patient states that he has been coughing a bit more than usual. Does admit that he has been eating and drinking less than usual but states that he is just not hungry. Patient has chest pain or shortness of breath, no nausea vomiting diarrhea, no abdominal pain, no UTI symptoms. EMS reports that patient's initial blood pressure was less than 60 systolic. Patient was given 0.5 L of normal saline. By the time the patient arrived to the ED, patient's blood pressure 117/55 Related Data Home Medications Medication Instructions Recorded Confirmed tamsulosin 0.4 mg capsule 0.4 mg PO BEDTIME 06/20/20 02/08/23 metoprolol succinate 25 mg 25 mg PO DAILY 02/10/21 09/14/22 tablet,extended release 24 hr atorvastatin 80 mg tablet 80 mg PO BEDTIME 02/22/21 02/08/23 aspirin 81 mg tablet,delayed 81 mg PO BEDTIME 12/19/21 02/08/23 release isosorbide mononitrate 30 mg 30 mg PO DAILY 12/19/21 02/08/23 tablet,extended release 24 hr latanoprost 0.005 % eye drops 1 drp ophthalmic (eye) BEDTIME 12/19/21 02/08/23 hydrochlorothiazide 25 mg tablet 25 mg PO DAILY 02/08/23 02/08/23 levetiracetam 250 mg tablet 250 mg PO BEDTIME 02/08/23 02/08/23 Previous Rx's Medication Instructions Recorded lisinopril 5 mg tablet 5 mg PO DAILY #30 tabs 10/27/20 Allergies Allergy/AdvReac Type Severity Reaction Status Date / Time bee pollen [bee stings] Allergy Severe Anaphylaxis Verified 02/04/23 05:03 Review of Systems Review of Systems: Constitutional : No Weight loss, No Fever, No Chills, No Night Sweats, No Fatigue, complaining of not feeling well, malaise, decreased p.o. ENT/Mouth : No Hearing loss, No Ear Pain, No Nasal Congestion, No Sinus Pain, No Hoarseness, No sore throat, No Rhinorrhea, No Swallowing Difficulty Eyes: No Eye Pain, No Swelling, No Redness, No Foreign Body, No Discharge, No Vision Changes Cardiovascular : No Chest Pain, No SOB, No Dyspnea on Exertion, No Orthopnea, No Edema, No Palpitations Respiratory : No Cough, No Sputum, No Wheezing, No Smoke Exposure, No Dyspnea Gastrointestinal : No Nausea, No Vomiting, No Diarrhea, No Constipation, No abdominal Pain, No Hematochezia, No Melena Genitourinary : no irregular bleeding, No Dysuria, No Urinary Frequency, No Hematuria, No Urinary Incontinence, No Urgency, No Flank Pain, No Urinary Flow Changes, No Hesitancy Musculoskeletal : No joint pain, No Myalgias, No Joint Swelling Skin : No Skin Lesions, No rash Neuro : No Weakness, No Numbness, No Paresthesias, No Loss of Consciousness, No Dizziness, No Headache Psych : No Anxiety/Panic, No Depression, No SI/HI/AH/VH, No Social Issues, Heme/Lymph: No Bruising, No Bleeding,No Lymphadenopathy Endocrine : No Polyuria, No Polydipsia, No Temperature Intolerance PMFSH Past Medical History Medical History Abnormal echocardiogram Ambulates with cane Arthritis BPH (benign prostatic hyperplasia) Cerebrovascular accident COPD (chronic obstructive pulmonary disease) COVID-19 vaccine series completed CVA (cerebrovascular accident) GUEVARA (dyspnea on exertion) Essential hypertension Hard of hearing History of acute inferior wall myocardial infarction History of smoking at least 1 pack per day for at least 30 years Hyperlipidemia Ischemic cardiomyopathy Low back pain Nasal congestion Near syncope 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 Right bundle branch block Surgical History H/O foot surgery H/O heart artery stent Previous back surgery S/P cardiac catheterization S/P carotid endarterectomy (07/18/21) Family History Family History Other CAD (coronary artery disease) Social History Social History Household Members: Spouse Housing: House Are you a primary childcare worker to a significant other at home: No Do you presently have visiting nurse or other home services: No Alcohol intake: former Patient Tobacco Use Status: Former Tobacco user Quit Date: 2015 Tobacco use type: Cigarette Cigarette Packs Per Day: 1 Cigarettes Per Day: 20.0 Years Smoked: 30 Smoked in Last 30 Days: No e-Cigarette/Vaping Use: Former Use Use of substances other than those prescribed or required for medical reasons: No Advance Directives: Yes Advance Directives on File: Yes Advance Directives Date on File: 07/18/21 service: Yes Current occupational status: retired Physical Exam ED Vital Signs: Vital Signs - 24 hr 02/08/23 14:56 02/08/23 16:03 02/08/23 16:14 Temperature 98.1 F Pulse Rate 62 58 59 Respiratory Rate 17 Blood Pressure 117/55 L 118/42 L 121/54 L Pulse Oximetry 96 Oxygen Delivery Method Room Air 02/08/23 20:16 Temperature 98.5 F Pulse Rate 68 Respiratory Rate 16 Blood Pressure 112/49 L Pulse Oximetry 95 Oxygen Delivery Method Room Air BMI result Body Mass Index 26.6 Const Other: Appearance: Alert. Oriented X3. No acute distress. Eyes: Pupils equal, round and reactive to light. ENT: Pharynx normal. dry oral mucosa Neck: Normal inspection. Neck supple. No lymph nodes noted. No crepitus CVS: Normal heart rate and rhythm. Pulses normal. Normal S1 and S2 Respiratory: No respiratory distress. Bilateral rales and crackles, no wheezing Abdomen: Soft and nontender. No rigidity. No distention. Skin: Skin warm and dry. Normal skin color. Normal skin turgor. Extremities: No lower extremity edema. No Lacerations. No Rash Neuro: Oriented X 3. No motor deficit. No sensory deficit. Moving all extremities. No slurred speech. CN 2 through 12 grossly intact Psych: calm, cooperative, normal affect Course Course Course Narrative: Constitutional : No Weight loss, No Fever, No Chills, No Night Sweats, No Fatigue, No Malaise ENT/Mouth : No Hearing loss, No Ear Pain, No Nasal Congestion, No Sinus Pain, No Hoarseness, No sore throat, No Rhinorrhea, No Swallowing Difficulty Eyes: No Eye Pain, No Swelling, No Redness, No Foreign Body, No Discharge, No Vision Changes Cardiovascular : No Chest Pain, No SOB, No Dyspnea on Exertion, No Orthopnea, No Edema, No Palpitations Respiratory : No Cough, No Sputum, No Wheezing, No Smoke Exposure, No Dyspnea Gastrointestinal : No Nausea, No Vomiting, No Diarrhea, No Constipation, No abdominal Pain, No Hematochezia, No Melena Genitourinary : no irregular bleeding, No Dysuria, No Urinary Frequency, No Hematuria, No Urinary Incontinence, No Urgency, No Flank Pain, No Urinary Flow Changes, No Hesitancy Musculoskeletal : No joint pain, No Myalgias, No Joint Swelling Skin : No Skin Lesions, No rash Neuro : No Weakness, No Numbness, No Paresthesias, No Loss of Consciousness, No Dizziness, No Headache Psych : No Anxiety/Panic, No Depression, No SI/HI/AH/VH, No Social Issues, Heme/Lymph: No Bruising, No Bleeding,No Lymphadenopathy Endocrine : No Polyuria, No Polydipsia, No Temperature Intolerance Medications Administered Generic Name Dose Route Start Last Admin Trade Name Freq PRN Reason Stop Dose Admin Sodium Chloride 100 mls @ 30 mls/hr 02/08/23 18:55 02/08/23 19:39 Sodium Chloride 3 % IV 02/08/23 22:14 30 mls/hr ONCE ONE Administration Discontinued Medications Generic Name Dose Route Start Last Admin Trade Name Freq PRN Reason Stop Dose Admin Sodium Chloride 1,000 mls @ 999 mls/hr 02/08/23 15:07 02/08/23 16:36 Ns IVCONT 02/08/23 16:07 Infused .Q1H1M ONE Infusion Medical Decision Making Medical Decision Making [facility] Narrative: -on arrival, patient reported not eating and drinking, on physical exam patient looks dry. Patient given 1 L of normal saline. Later, we received the patient's lab results. Patient has a sodium of 117. We will repeat chemistry and obtain additional labs (osmolarity, osmolality serum/urine) -My interpretation of chest x-ray: No pneumonia -2nd set of chemistry labs my interpretation: Sodium of 118, urine osmolality 235, urine random sodium 46, serum osmolality 253 -I spoke with Dr. Tabares, we will not have any ICU beds until 23:00 -I consulted Nephrology, Dr. Barkley. Recommendations: 3% saline at 30 cc/hour, recheck sodium every 2-3 hours, once the sodium reaches 124 stop Hypertonic saline and start fluid restriction -patient remains awake, more alert now, talkative, coherent, vitals stable 22:00: I discussed the patient with Dr. Tabares -sodium levels pending after the 1st dose of 3% normal saline -recommendations per Dr. Tabares, discontinue 3% normal saline. -vitals: Blood pressure 112/49, heart rate 68, oxygen saturation 95% on room air. -patient remains alert and oriented x3, coherent, otherwise asymptomatic -patient accepted to the ICU Differential Diagnosis Differential Diagnoses: The differential diagnosis associated with the presentation includes (UTI, hyponatremia, adult failure to thrive) Admission/Observation Consideration of admission/observation: Escalation of care including admission/observation considered Consult Healthcare Provider Management of the patient was discussed with: Reroller Hand Lab Data MDM Lab Attestation statement: I reviewed the patient's lab results. 02/08/23 15:31 02/08/23 15:31 Labs: Lab Results 02/08/23 02/08/23 02/08/23 Range/Units 15:29 15:29 15:31 WBC 8.1 (4.8-10.8) X10*3/uL RBC 4.01 L (4.60-5.80) X10*6/uL Hgb 12.4 L (14.0-18.0) g/dl Hct 34.5 L (42.0-52.0) % MCV 86.0 (80.0-98.0) fL MCH 30.9 (27.0-33.0) pg MCHC 35.9 (31.0-36.0) g/dl RDW 12.1 (11.0-16.0) % Plt Count 228 (160-400) X10*3/uL MPV 9.7 (9.4-12.4) fL Immature Gran % (Auto) 0.4 (0.0-0.4) % Neut % (Auto) 72.6 (45-73) % Lymph % (Auto) 8.9 L (20-40) % [place] % (Auto) 13.3 H (2-11) % Eos % (Auto) 4.6 H (0-4) % Baso % (Auto) 0.2 (0-2) % Lymph # (Auto) 0.7 L (1.2-4.9) X10*3/uL [place] # (Auto) 1.1 (0.1-1.2) X10*3/uL Eos # (Auto) 0.4 (0.0-0.4) X10*3/uL Baso # (Auto) 0.0 (0.0-0.2) X10*3/uL Abs Immat Gran (auto) 0.03 (0.00-0.03) X10*3/uL Absolute Neuts (auto) 5.9 (2.0-8.3) x10*3/uL Absolute Nucleated RBC 0.000 (0.0-0.012) X10*3/uL Nucleated RBC % (auto) 0.0 (0.0-0.2) /100WBC PT 13.2 H (10.0-13.1) SEC INR 1.1 (0.9-1.1) VBG pH (7.32-7.43) VBG pCO2 mmHg VBG pO2 mmHg VBG HCO3 (22-26) mmol/L VBG O2 Saturation % VBG Base Excess mmol/L Sodium (135-145) mmol/L Potassium (3.3-5.1) mmol/L Chloride (96-108) mmol/L Carbon Dioxide (22-29) mmol/L Anion Gap (12-20) BUN (9-16) mg/dL Creatinine (0.5-1.4) mg/dL Estim Creat Clear Calc Estimated GFR Random Glucose (60-115) mg/dL Osmolality (281-305) mosm/kg Lactic Acid 0.9 (0.5-2.0) mmol/L Calcium (8.4-10.2) mg/dL Total Bilirubin (0.0-1.0) mg/dL Direct Bilirubin (0.0-0.5) mg/dL AST (5-37) U/L ALT (0-40) U/L Alkaline Phosphatase (39-117) U/L Troponin I High Sens (<3.5-35.0) ng/L B-Natriuretic Peptide (<100) pg/mL Total Protein (6.5-8.0) g/dL Albumin (3.5-5.0) g/dL Urine Color Urine Appearance Urine pH (5.0-9.0) Ur Specific [place] (1.005-1.025) Urine Protein (Neg-Trace) mg/dL Urine Glucose (UA) (Negative) mg/dL Urine Ketones (Negative) mg/dL Urine Blood (Negative) Urine Nitrite (Negative) Ur Leukocyte Esterase (Negative) Urine Osmolality (373-1093) mosm/kg Ur Random Sodium mmol/L COVID-19 (HUGO) (Negative) COVID-19 Clin Com 02/08/23 02/08/23 02/08/23 Range/Units 15:31 15:31 15:31 WBC (4.8-10.8) X10*3/uL RBC (4.60-5.80) X10*6/uL Hgb (14.0-18.0) g/dl Hct (42.0-52.0) % MCV (80.0-98.0) fL MCH (27.0-33.0) pg MCHC (31.0-36.0) g/dl RDW (11.0-16.0) % Plt Count (160-400) X10*3/uL MPV (9.4-12.4) fL Immature Gran % (Auto) (0.0-0.4) % Neut % (Auto) (45-73) % Lymph % (Auto) (20-40) % [place] % (Auto) (2-11) % Eos % (Auto) (0-4) % Baso % (Auto) (0-2) % Lymph # (Auto) (1.2-4.9) X10*3/uL [place] # (Auto) (0.1-1.2) X10*3/uL Eos # (Auto) (0.0-0.4) X10*3/uL Baso # (Auto) (0.0-0.2) X10*3/uL Abs Immat Gran (auto) (0.00-0.03) X10*3/uL Absolute Neuts (auto) (2.0-8.3) x10*3/uL Absolute Nucleated RBC (0.0-0.012) X10*3/uL Nucleated RBC % (auto) (0.0-0.2) /100WBC PT (10.0-13.1) SEC INR (0.9-1.1) VBG pH (7.32-7.43) VBG pCO2 mmHg VBG pO2 mmHg VBG HCO3 (22-26) mmol/L VBG O2 Saturation % VBG Base Excess mmol/L Sodium 117 L* (135-145) mmol/L Potassium 4.6 (3.3-5.1) mmol/L Chloride 88 L (96-108) mmol/L Carbon Dioxide 22 (22-29) mmol/L Anion Gap 12 (12-20) BUN 13 (9-16) mg/dL Creatinine 1.06 (0.5-1.4) mg/dL Estim Creat Clear Calc 50.9 Estimated GFR > 60 Random Glucose 128 H (60-115) mg/dL Osmolality (281-305) mosm/kg Lactic Acid (0.5-2.0) mmol/L Calcium 8.1 L D (8.4-10.2) mg/dL Total Bilirubin 0.9 (0.0-1.0) mg/dL Direct Bilirubin 0.4 (0.0-0.5) mg/dL AST 48 H (5-37) U/L ALT 32 (0-40) U/L Alkaline Phosphatase 113 (39-117) U/L Troponin I High Sens 9.7 (<3.5-35.0) ng/L B-Natriuretic Peptide (<100) pg/mL Total Protein 5.9 L (6.5-8.0) g/dL Albumin 3.2 L (3.5-5.0) g/dL Urine Color Urine Appearance Urine pH (5.0-9.0) Ur Specific [place] (1.005-1.025) Urine Protein (Neg-Trace) mg/dL Urine Glucose (UA) (Negative) mg/dL Urine Ketones (Negative) mg/dL Urine Blood (Negative) Urine Nitrite (Negative) Ur Leukocyte Esterase (Negative) Urine Osmolality (373-1093) mosm/kg Ur Random Sodium mmol/L COVID-19 (HUGO) Negative (Negative) COVID-19 Clin Com See Note 02/08/23 02/08/23 02/08/23 Range/Units 15:31 15:34 16:27 WBC (4.8-10.8) X10*3/uL RBC (4.60-5.80) X10*6/uL Hgb (14.0-18.0) g/dl Hct (42.0-52.0) % MCV (80.0-98.0) fL MCH (27.0-33.0) pg MCHC (31.0-36.0) g/dl RDW (11.0-16.0) % Plt Count (160-400) X10*3/uL MPV (9.4-12.4) fL Immature Gran % (Auto) (0.0-0.4) % Neut % (Auto) (45-73) % Lymph % (Auto) (20-40) % [place] % (Auto) (2-11) % Eos % (Auto) (0-4) % Baso % (Auto) (0-2) % Lymph # (Auto) (1.2-4.9) X10*3/uL [place] # (Auto) (0.1-1.2) X10*3/uL Eos # (Auto) (0.0-0.4) X10*3/uL Baso # (Auto) (0.0-0.2) X10*3/uL Abs Immat Gran (auto) (0.00-0.03) X10*3/uL Absolute Neuts (auto) (2.0-8.3) x10*3/uL Absolute Nucleated RBC (0.0-0.012) X10*3/uL Nucleated RBC % (auto) (0.0-0.2) /100WBC PT (10.0-13.1) SEC INR (0.9-1.1) VBG pH 7.35 (7.32-7.43) VBG pCO2 44 mmHg VBG pO2 38 mmHg VBG HCO3 25 (22-26) mmol/L VBG O2 Saturation 55.0 % VBG Base Excess -0.5 mmol/L Sodium (135-145) mmol/L Potassium (3.3-5.1) mmol/L Chloride (96-108) mmol/L Carbon Dioxide (22-29) mmol/L Anion Gap (12-20) BUN (9-16) mg/dL Creatinine (0.5-1.4) mg/dL Estim Creat Clear Calc Estimated GFR Random Glucose (60-115) mg/dL Osmolality 253 L (281-305) mosm/kg Lactic Acid (0.5-2.0) mmol/L Calcium (8.4-10.2) mg/dL Total Bilirubin (0.0-1.0) mg/dL Direct Bilirubin (0.0-0.5) mg/dL AST (5-37) U/L ALT (0-40) U/L Alkaline Phosphatase (39-117) U/L Troponin I High Sens (<3.5-35.0) ng/L B-Natriuretic Peptide 92 (<100) pg/mL Total Protein (6.5-8.0) g/dL Albumin (3.5-5.0) g/dL Urine Color Urine Appearance Urine pH (5.0-9.0) Ur Specific [place] (1.005-1.025) Urine Protein (Neg-Trace) mg/dL Urine Glucose (UA) (Negative) mg/dL Urine Ketones (Negative) mg/dL Urine Blood (Negative) Urine Nitrite (Negative) Ur Leukocyte Esterase (Negative) Urine Osmolality (373-1093) mosm/kg Ur Random Sodium mmol/L COVID-19 (HUGO) (Negative) COVID-19 Clin Com 02/08/23 02/08/23 02/08/23 Range/Units 16:27 16:53 16:53 WBC (4.8-10.8) X10*3/uL RBC (4.60-5.80) X10*6/uL Hgb (14.0-18.0) g/dl Hct (42.0-52.0) % MCV (80.0-98.0) fL MCH (27.0-33.0) pg MCHC (31.0-36.0) g/dl RDW (11.0-16.0) % Plt Count (160-400) X10*3/uL MPV (9.4-12.4) fL Immature Gran % (Auto) (0.0-0.4) % Neut % (Auto) (45-73) % Lymph % (Auto) (20-40) % [place] % (Auto) (2-11) % Eos % (Auto) (0-4) % Baso % (Auto) (0-2) % Lymph # (Auto) (1.2-4.9) X10*3/uL [place] # (Auto) (0.1-1.2) X10*3/uL Eos # (Auto) (0.0-0.4) X10*3/uL Baso # (Auto) (0.0-0.2) X10*3/uL Abs Immat Gran (auto) (0.00-0.03) X10*3/uL Absolute Neuts (auto) (2.0-8.3) x10*3/uL Absolute Nucleated RBC (0.0-0.012) X10*3/uL Nucleated RBC % (auto) (0.0-0.2) /100WBC PT (10.0-13.1) SEC INR (0.9-1.1) VBG pH (7.32-7.43) VBG pCO2 mmHg VBG pO2 mmHg VBG HCO3 (22-26) mmol/L VBG O2 Saturation % VBG Base Excess mmol/L Sodium 118 L* (135-145) mmol/L Potassium 4.9 (3.3-5.1) mmol/L Chloride 91 L (96-108) mmol/L Carbon Dioxide 21 L (22-29) mmol/L Anion Gap 11 L (12-20) BUN 13 (9-16) mg/dL Creatinine 1.02 (0.5-1.4) mg/dL Estim Creat Clear Calc 52.9 Estimated GFR > 60 Random Glucose 105 (60-115) mg/dL Osmolality (281-305) mosm/kg Lactic Acid (0.5-2.0) mmol/L Calcium 8.1 L (8.4-10.2) mg/dL Total Bilirubin (0.0-1.0) mg/dL Direct Bilirubin (0.0-0.5) mg/dL AST (5-37) U/L ALT (0-40) U/L Alkaline Phosphatase (39-117) U/L Troponin I High Sens (<3.5-35.0) ng/L B-Natriuretic Peptide (<100) pg/mL Total Protein (6.5-8.0) g/dL Albumin (3.5-5.0) g/dL Urine Color Urine Appearance Urine pH (5.0-9.0) Ur Specific [place] (1.005-1.025) Urine Protein (Neg-Trace) mg/dL Urine Glucose (UA) (Negative) mg/dL Urine Ketones (Negative) mg/dL Urine Blood (Negative) Urine Nitrite (Negative) Ur Leukocyte Esterase (Negative) Urine Osmolality 235 L (373-1093) mosm/kg Ur Random Sodium 46.0 mmol/L COVID-19 (HUGO) (Negative) COVID-19 Clin Com 02/08/23 Range/Units 16:53 WBC (4.8-10.8) X10*3/uL RBC (4.60-5.80) X10*6/uL Hgb (14.0-18.0) g/dl Hct (42.0-52.0) % MCV (80.0-98.0) fL MCH (27.0-33.0) pg MCHC (31.0-36.0) g/dl RDW (11.0-16.0) % Plt Count (160-400) X10*3/uL MPV (9.4-12.4) fL Immature Gran % (Auto) (0.0-0.4) % Neut % (Auto) (45-73) % Lymph % (Auto) (20-40) % [place] % (Auto) (2-11) % Eos % (Auto) (0-4) % Baso % (Auto) (0-2) % Lymph # (Auto) (1.2-4.9) X10*3/uL [place] # (Auto) (0.1-1.2) X10*3/uL Eos # (Auto) (0.0-0.4) X10*3/uL Baso # (Auto) (0.0-0.2) X10*3/uL Abs Immat Gran (auto) (0.00-0.03) X10*3/uL Absolute Neuts (auto) (2.0-8.3) x10*3/uL Absolute Nucleated RBC (0.0-0.012) X10*3/uL Nucleated RBC % (auto) (0.0-0.2) /100WBC PT (10.0-13.1) SEC INR (0.9-1.1) VBG pH (7.32-7.43) VBG pCO2 mmHg VBG pO2 mmHg VBG HCO3 (22-26) mmol/L VBG O2 Saturation % VBG Base Excess mmol/L Sodium (135-145) mmol/L Potassium (3.3-5.1) mmol/L Chloride (96-108) mmol/L Carbon Dioxide (22-29) mmol/L Anion Gap (12-20) BUN (9-16) mg/dL Creatinine (0.5-1.4) mg/dL Estim Creat Clear Calc Estimated GFR Random Glucose (60-115) mg/dL Osmolality (281-305) mosm/kg Lactic Acid (0.5-2.0) mmol/L Calcium (8.4-10.2) mg/dL Total Bilirubin (0.0-1.0) mg/dL Direct Bilirubin (0.0-0.5) mg/dL AST (5-37) U/L ALT (0-40) U/L Alkaline Phosphatase (39-117) U/L Troponin I High Sens (<3.5-35.0) ng/L B-Natriuretic Peptide (<100) pg/mL Total Protein (6.5-8.0) g/dL Albumin (3.5-5.0) g/dL Urine Color Yellow Urine Appearance Clear Urine pH 6.5 (5.0-9.0) Ur Specific [place] <= 1.005 (1.005-1.025) Urine Protein Negative (Neg-Trace) mg/dL Urine Glucose (UA) Negative (Negative) mg/dL Urine Ketones Negative (Negative) mg/dL Urine Blood Negative (Negative) Urine Nitrite Negative (Negative) Ur Leukocyte Esterase Negative (Negative) Urine Osmolality (373-1093) mosm/kg Ur Random Sodium mmol/L COVID-19 (HUGO) (Negative) COVID-19 Clin Com Radiology Impression Discussion of test interpretation with radiology: I have reviewed the radiologist's reading. Radiologist Impression: FINDINGS: Lines and tubes: EKG leads overlie the patient. Similar calcific density overlying the left lateral lower chest wall. Streaky left basilar opacities likely reflecting atelectasis or scar. ? No pleural effusion. No pneumothorax. Unchanged cardiomediastinal silhouette. XR/XR chest 1V IMPRESSION: 1.? Streaky left basilar opacities likely reflecting atelectasis or scar. 2.? Similar calcific density overlying the left lateral lower chest wall. Chronic Conditions Patient?s care impacted by: Hypertension and Other (CVA, COPD, CAD) Critical Care Time Critical Care Time Critical Care Time: Yes Total Critical Care Time: 120 Attestation: I have personally provided critical care time. Time includes review of lab data, radiology results, discussion with consultants, and monitoring for potential decompensation. Intervention performed as documented. Discharge Plan Discharge Clinical Impression: Acute hyponatremia, Adult failure to thrive Prescriptions: No Action lisinopril 5 mg tablet 5 mg PO DAILY Qty: 30 5RF tamsulosin 0.4 mg Capsule 0.4 mg PO BEDTIME atorvastatin 80 mg Tablet 80 mg PO BEDTIME aspirin 81 mg tablet,delayed release (DR/EC) 81 mg PO BEDTIME latanoprost 0.005 % Drops 1 drp OPHTHALMIC (EYE) BEDTIME isosorbide mononitrate 30 mg Tablet Extended Release 24 Hr 30 mg PO DAILY levetiracetam 250 mg Tablet 250 mg PO BEDTIME hydrochlorothiazide 25 mg Tablet 25 mg PO DAILY metoprolol succinate 25 mg tablet extended release 24 hr 25 mg PO DAILY
--- NOTE | 2023-02-08 15:45 | PC.NURSE ---
pt alert and oriented x 2, new onset altered mental status & decreased po intake per . however, pt answering appropriately to this rn. PERRLA, equal/strong strength BUE & BLE. skin WPD. respirations even and unlabored, slightly tachypneic. lung sounds wheezing/crackles noted bilaterally. NSR on monitor with occasional PVCs. afebrile. md to bedside. labs drawn, fluids infusing. awaiting results. pt resting comfortably in bed, denies questions/concerns at this time.
--- NOTE | 2023-02-08 19:16 | PC.NURSE ---
this rn assumed care of pt at 1900. this rn contacted pharmacy regarding sodium chloride 3%. per pharmacist fluids will be brought to ed shortly
--- NOTE | 2023-02-08 19:30 | PC.NURSE ---
bedside swallow eval performed by this rn. pt PASSED swallo eval.
--- NOTE | 2023-02-08 19:45 | PHA.MEDREC ---
Pharmacy Consult ? Medication Reconciliation Pharmacy has completed the medication reconciliation. List from [facility]
--- NOTE | 2023-02-08 21:29 | HE.PHANOTE ---
Patient on hypertonic saline, pharmacy had made extra bags in case patient needs more. Second bag was brought down as patient is getting labs retaken. Went down to retrieve extra bag from nursing supervisor fertilizer as I was nervous the bag may be used without proper order from provider. Nursing supervisor fertilizer had it at their desk. I expressed my concern. Nursing supervisor fertilizer assured me that bag would be properly taken care of/ watched by her personally. Told her to call me if bag is not needed as I do no feel comfortable with it being down in ED if it is not needed. Will be monitoring patient to see if labs improve and if the bag will be needed. This [facility] is here till 2300.
--- NOTE | 2023-02-08 22:34 | PC.NURSE ---
this rn spoke with ICU MICHAEL reji. per michael. stop sodium chloride 3% after first bag has been completed. michael recommended encouraging pt to eat as much as possible to maintain stable sodium levels above 120. this rn provided pt wit sandwich at this time. pt assisted in utilizing urinal at bedside
--- NOTE | 2023-02-08 23:39 | PM.CCHP ---
History of Present Illness Date of Service: 02/08/23 Attending physician on admission: Aaron Tabares Chief Complaint: HYPONATREMIA HPI: ?85-year-old male with underlying history of coronary disease status post stent in the left circumflex, hypertension, hyperlipidemia, syncope, chronic low back pain, dyspnea on exertion, prior CVA without known residual deficits, BPH, arthritis among others. ?Patient presented to the emergency room today via EMS as the patient's reported that he appeared to be confused more than usual, reportedly he has had decreased p.o. intake for about a week along with increased coughing and not eating as well as coughing while trying to swallow food although he has not been really hungry and has had a very low p.o. intake for the past 2 weeks.? There is no reports of fever, no shortness of breath at least no more than usual, no nausea, vomiting, diarrhea, abdominal pain, falls or syncope. ? In the ER, it was reported by EMS that the patient's blood pressure was less than 60s systolic, he was given 500 cc of normal saline, on a arrival to the ER his blood pressure was 117/55 with otherwise normal vital signs, his workup was overall unremarkable without a white count, chronic anemia, however his sodium was as low as 117 and there was no evidence of renal dysfunction.? He was not hypoxic, not tachycardic, not tachypneic and had no fever.? His chest x-ray does not show any acute pulmonary disease. ? Given the low sodium, the case had been discussed with Nephrology Dr Barkley who recommended hypertonic saline which was started in the emergency room, this was to be continued at 30 cc an hours with frequent rechecks of sodium levels as well as to stop once he reached 124 then start fluid restriction.? As per ER nurse reports, the patient had initially been significantly confused and they were concerned about his swallow ability.? Subsequent ER evaluation reveals a very coherent and talkative patient will otherwise was asymptomatic.? Patient was admitted to the ICU for further treatment. ? ROS:? Unable to obtain ? Past Medical History: ?As above Right bundle-branch block Near syncope Ischemic cardiomyopathy COPD Hard of hearing ? Past Surgical History: Hx R foot sx Lumbar fusion Cardiac Cath R CEA ? Family history:? Noncontributory ? Social History:? lives home, 30 pack year history, quit 2016. No Etoh, no drugs. ?Ambulates with a cane ? CODE STATUS: FULL CODE ? Allergies: NKDA; bees (anaphylaxis) ? Home Medications: See Med Rec ? PHYSICAL EXAM: VS: 136/72; 71; 19; 97% RA General:? Alert oriented x3 no acute distress.? Speaking full sentences.? Speech is well articulated, thought process is somewhat coherent.? Following all commands. Skin:? Intact, no lesions, edema, erythema, clubbing or cyanosis.? No ulcers. HEENT:? Head is normocephalic, atraumatic, pupils equal round reactive to light accommodation bilaterally.? Extraocular movements appear intact.? Buccal mucosa is moist, Neck is supple without lymphadenopathy. Cardiac:? Clear S1-S2, no murmurs rubs or gallops. Pulmonary:? Clear to auscultation, no wheezes, rales or rhonchi. Abdomen:? Protuberant, positive bowel sounds in all 4 quadrants.? Soft, nontender, no rebound or guarding.? Musculoskeletal:? Moving all 4 extremities upon request a major joints, there is no crepitus or tenderness.? The strength is 5/5 bilaterally and throughout all 4 extremities.? There is no leg edema , no calf tenderness , no leg asymmetry.? Gait not assessed at this point. Neurologic:? As above, cranial nerves 2-12 are grossly intact.? No focal deficits noted. Vascular:? 2+ pulses upper and lower extremities distally. ? SIGNIFICANT LABORATORY DATA:? As above ? REVIEW OF IMAGES: CXR IMPRESSION: 1.? Streaky left basilar opacities likely reflecting atelectasis or scar. 2.?Similar calcific density overlying the left lateral lower chest wall.? ? EKG REVIEW: SR [address] elevations or depressions; chronic lateral and inferior changes noted in prior studies, QTc 468 ms. ? ASSESSMENT : 1. Hypo-Osmolar Hyponatremia likely poor po intake / HCTZ, less likely SIADH 2. Chronic Normocytic Anemia 3. Hypoalbumenemia 4. Essential hypertension (stable) 5. Hx Seizures no sx now 6. Hx Dementia cuerrently A and O x 3 7. Hx CAD no sx 8. History COPD with current cough (TIO inhibitor related); but no documented shortness of breath, hypoxia, fever, leukocytosis therefore I do not think it represents either an exacerbation or a underlying pneumonia. ? PLAN OF CARE: Admit to ICU, I and O's, vital signs, patient received hypertonic fluid infusion in the emergency room which has been discontinued, since a bedside swallow eval was done by nursing and the patient's swallow properly without problems.? A peanut butter and jelly sandwich along with some javid hieu was taken by the patient without problems.? Will recheck laboratories tonight and if no further neurological symptoms present, most likely the patient will be able to transition to the next level of care.? Continue with home medications including Keppra, for now we will discontinue his antihypertensives for his blood pressure has been fluctuating and has been borderline low at times. A formal swallow eval will be ordered. He does have some cough, will give him dual neb treatments and albuterol p.r.n., I do not think he needs antibiotics and/or steroids at this point. ? 01:34 02/19/2023, recheck sodium is 124. Will start fluid restriction as recommended by Dr Barkley. Clinical Update 0634 am patient stable, Na 126 will transfer patient to the floor, case discussed with Dr Jj ? GI PROPHYLAXIS: No need? DVT PROPHYLAXIS: Lovenox sub Q Critical care time used for critical evaluation of this patient, diagnosis, treatment and coordination of care, review her records and documentation TOTAL CRITICAL CARE TIME 90 MIN . discussion and coordination with consultants, completely separate from any procedures performed. Patient's care was discussed in detail with Dr. Tabares.? He is aware of all the above as well as the plan of care for this patient. ? [facility] Past Medical History Medical History Abnormal echocardiogram Ambulates with cane Arthritis BPH (benign prostatic hyperplasia) Cerebrovascular accident COPD (chronic obstructive pulmonary disease) COVID-19 vaccine series completed CVA (cerebrovascular accident) GUEVARA (dyspnea on exertion) Essential hypertension Hard of hearing History of acute inferior wall myocardial infarction History of smoking at least 1 pack per day for at least 30 years Hyperlipidemia Ischemic cardiomyopathy Low back pain Nasal congestion Near syncope 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 Right bundle branch block Family History Family History Other CAD (coronary artery disease) Surgical History Surgical History H/O foot surgery H/O heart artery stent Previous back surgery S/P cardiac catheterization S/P carotid endarterectomy (07/18/21) Social History Social History Household Members: Spouse Housing: House Are you a primary home care chaplain to a significant other at home: No Do you presently have visiting nurse or other home services: No Alcohol intake: former Patient Tobacco Use Status: Former Tobacco user Quit Date: 2015 Tobacco use type: Cigarette Cigarette Packs Per Day: 1 Cigarettes Per Day: 20.0 Years Smoked: 30 Smoked in Last 30 Days: No e-Cigarette/Vaping Use: Never Used Patient Interested in Nicotine Replacement: No (does smoke) Patient Given Instructions on How to Stop Smoking: No (does not smoke) Second Hand Smoke Exposure: No Use of substances other than those prescribed or required for medical reasons: No Currently Displaying Signs/Symptoms of Drug Intoxication Withdrawal: No Any prior treatment program specific to substance use: No Have you been hit, kicked, punched, or otherwise hurt by someone within the past year? If so, by whom?: No Do you feel safe in your current relationship?: Yes Is there a partner from a previous relationship who is making you feel unsafe now?: No Are you made to feel afraid or neglected: No Spiritual Healthcare Practices: none Quaker Healthcare Practices: none Cultural Healthcare Practices: none Advance Directives: Yes Advance Directives Information Provided: No Advance Directives on File: Yes Advance Directives Date on File: 07/18/21 Do you have thoughts of harming others: None Do you have a plan to hurt others: No Plan Recently lost weight without trying: No Eating poorly because of decreased appetite: No Nutrition Risks: No Nutritional Risk Poor oral hygiene: No service: Yes Current occupational status: retired Meds Allergies Allergy/AdvReac Type Severity Reaction Status Date / Time bee pollen [bee stings] Allergy Severe Anaphylaxis Verified 02/04/23 05:03 Active Medications: Current Medications Aspirin (Aspirin Enteric Coated 81 Mg Tablet.Dr) 81 mg PO BEDTIME MARCELLA Atorvastatin Calcium (Atorvastatin Calcium 80 Mg Tablet) 80 mg PO BEDTIME MARCELLA Latanoprost (Latanoprost 0.005 % Ophth Mikala 2.5 Ml Drops) 1 drop EYE-BOTH BEDTIME [facility] Levetiracetam (Levetiracetam 250 Mg Tablet) 250 mg PO BEDTIME [facility] Pharmacy Consult (Consult Rx Perform Med Rec) 1 each MISCELLANE ONCE PRN PRN Reason: Consult order Tamsulosin HCl (Tamsulosin Hcl 0.4 Mg Capsule) 0.4 mg PO BEDTIME [facility] Home Medications Medication Instructions Recorded Confirmed Last Taken Type tamsulosin 0.4 mg capsule 0.4 mg PO BEDTIME 06/20/20 02/08/23 08/02/21 History metoprolol succinate 25 mg 25 mg PO DAILY 02/10/21 09/14/22 08/03/21 History tablet,extended release 24 hr atorvastatin 80 mg tablet 80 mg PO BEDTIME 02/22/21 02/08/23 12/18/21 History aspirin 81 mg tablet,delayed 81 mg PO BEDTIME 12/19/21 02/08/23 12/18/21 History release isosorbide mononitrate 30 mg 30 mg PO DAILY 12/19/21 02/08/23 Unknown History tablet,extended release 24 hr latanoprost 0.005 % eye drops 1 drp ophthalmic (eye) BEDTIME 12/19/21 02/08/23 12/18/21 History hydrochlorothiazide 25 mg tablet 25 mg PO DAILY 02/08/23 02/08/23 Unknown History levetiracetam 250 mg tablet 250 mg PO BEDTIME 02/08/23 02/08/23 Unknown History Physical Exam Vital Signs: Vital Signs: Last Vital Signs Temp 97.9 F 02/08/23 23:05 Pulse 65 02/08/23 23:05 Resp 19 02/08/23 23:05 BP 149/56 H 02/08/23 23:05 Pulse Ox 97 02/08/23 23:05 O2 Del Method Room Air 02/08/23 23:05 BMI result Body Mass Index 26.6 Results Labs 02/08/23 15:31 02/08/23 21:18 Labs: Laboratory Results - last 24 hr 02/08/23 02/08/23 02/08/23 15:29 15:29 15:31 MCV 86.0 MCH 30.9 MCHC 35.9 RDW 12.1 Plt Count 228 MPV 9.7 Immature Gran % (Auto) 0.4 Neut % (Auto) 72.6 Lymph % (Auto) 8.9 L [place] % (Auto) 13.3 H Eos % (Auto) 4.6 H Baso % (Auto) 0.2 Lymph # (Auto) 0.7 L [place] # (Auto) 1.1 Eos # (Auto) 0.4 Baso # (Auto) 0.0 Abs Immat Gran (auto) 0.03 Absolute Neuts (auto) 5.9 Absolute Nucleated RBC 0.000 Nucleated RBC % (auto) 0.0 PT 13.2 H INR 1.1 VBG pH VBG pCO2 VBG pO2 VBG HCO3 VBG O2 Saturation VBG Base Excess Anion Gap Estim Creat Clear Calc Estimated GFR Random Glucose Osmolality Lactic Acid 0.9 Calcium Total Bilirubin Direct Bilirubin AST ALT Alkaline Phosphatase Troponin I High Sens B-Natriuretic Peptide Total Protein Albumin Urine Color Urine Appearance Urine pH Ur Specific [place] Urine Protein Urine Glucose (UA) Urine Ketones Urine Blood Urine Nitrite Ur Leukocyte Esterase Urine Osmolality Ur Random Sodium COVID-19 (HUGO) COVID-19 [employer] Com 02/08/23 02/08/23 02/08/23 15:31 15:31 15:31 MCV MCH MCHC RDW Plt Count MPV Immature Gran % (Auto) Neut % (Auto) Lymph % (Auto) [place] % (Auto) Eos % (Auto) Baso % (Auto) Lymph # (Auto) [place] # (Auto) Eos # (Auto) Baso # (Auto) Abs Immat Gran (auto) Absolute Neuts (auto) Absolute Nucleated RBC Nucleated RBC % (auto) PT INR VBG pH VBG pCO2 VBG pO2 VBG HCO3 VBG O2 Saturation VBG Base Excess Anion Gap 12 Estim Creat Clear Calc 50.9 Estimated GFR > 60 Random Glucose 128 H Osmolality Lactic Acid Calcium 8.1 L D Total Bilirubin 0.9 Direct Bilirubin 0.4 AST 48 H ALT 32 Alkaline Phosphatase 113 Troponin I High Sens 9.7 B-Natriuretic Peptide Total Protein 5.9 L Albumin 3.2 L Urine Color Urine Appearance Urine pH Ur Specific [place] Urine Protein Urine Glucose (UA) Urine Ketones Urine Blood Urine Nitrite Ur Leukocyte Esterase Urine Osmolality Ur Random Sodium COVID-19 (HUGO) Negative COVID-19 Clin Com See Note 02/08/23 02/08/23 02/08/23 15:31 15:34 16:27 MCV MCH MCHC RDW Plt Count MPV Immature Gran % (Auto) Neut % (Auto) Lymph % (Auto) [place] % (Auto) Eos % (Auto) Baso % (Auto) Lymph # (Auto) [place] # (Auto) Eos # (Auto) Baso # (Auto) Abs Immat Gran (auto) Absolute Neuts (auto) Absolute Nucleated RBC Nucleated RBC % (auto) PT INR VBG pH 7.35 VBG pCO2 44 VBG pO2 38 VBG HCO3 25 VBG O2 Saturation 55.0 VBG Base Excess -0.5 Anion Gap Estim Creat Clear Calc Estimated GFR Random Glucose Osmolality 253 L Lactic Acid Calcium Total Bilirubin Direct Bilirubin AST ALT Alkaline Phosphatase Troponin I High Sens B-Natriuretic Peptide 92 Total Protein Albumin Urine Color Urine Appearance Urine pH Ur Specific [place] Urine Protein Urine Glucose (UA) Urine Ketones Urine Blood Urine Nitrite Ur Leukocyte Esterase Urine Osmolality Ur Random Sodium COVID-19 (HUGO) COVIDChargeback 02/08/23 02/08/23 02/08/23 16:27 16:53 16:53 MCV MCH MCHC RDW Plt Count MPV Immature Gran % (Auto) Neut % (Auto) Lymph % (Auto) [place] % (Auto) Eos % (Auto) Baso % (Auto) Lymph # (Auto) [place] # (Auto) Eos # (Auto) Baso # (Auto) Abs Immat Gran (auto) Absolute Neuts (auto) Absolute Nucleated RBC Nucleated RBC % (auto) PT INR VBG pH VBG pCO2 VBG pO2 VBG HCO3 VBG O2 Saturation VBG Base Excess Anion Gap 11 L Estim Creat Clear Calc 52.9 Estimated GFR > 60 Random Glucose 105 Osmolality Lactic Acid Calcium 8.1 L Total Bilirubin Direct Bilirubin AST ALT Alkaline Phosphatase Troponin I High Sens B-Natriuretic Peptide Total Protein Albumin Urine Color Urine Appearance Urine pH Ur Specific [place] Urine Protein Urine Glucose (UA) Urine Ketones Urine Blood Urine Nitrite Ur Leukocyte Esterase Urine Osmolality 235 L Ur Random Sodium 46.0 COVID-19 (HUGO) COVID-Adaptive TCR 02/08/23 02/08/23 16:53 21:18 MCV MCH MCHC RDW Plt Count MPV Immature Gran % (Auto) Neut % (Auto) Lymph % (Auto) [place] % (Auto) Eos % (Auto) Baso % (Auto) Lymph # (Auto) [place] # (Auto) Eos # (Auto) Baso # (Auto) Abs Immat Gran (auto) Absolute Neuts (auto) Absolute Nucleated RBC Nucleated RBC % (auto) PT INR VBG pH VBG pCO2 VBG pO2 VBG HCO3 VBG O2 Saturation VBG Base Excess Anion Gap 12 Estim Creat Clear Calc 52.4 Estimated GFR > 60 Random Glucose 123 H Osmolality Lactic Acid Calcium 8.5 Total Bilirubin Direct Bilirubin AST ALT Alkaline Phosphatase Troponin I High Sens B-Natriuretic Peptide Total Protein Albumin Urine Color Yellow Urine Appearance Clear Urine pH 6.5 Ur Specific [place] <= 1.005 Urine Protein Negative Urine Glucose (UA) Negative Urine Ketones Negative Urine Blood Negative Urine Nitrite Negative Ur Leukocyte Esterase Negative Urine Osmolality Ur Random Sodium COVID-19 (HUGO) COVID-19 Clin Com Imaging Radiologist's Impressions: Impressions Chest X-Ray 02/08/23 15:46 IMPRESSION: 1. Streaky left basilar opacities likely reflecting atelectasis or scar. 2. Similar calcific density overlying the left lateral lower chest wall. Assessment and Plan Time Spent With Patient Time: Total time managing care of this patient today ____ minutes.
[2023-02-09] VITALS (14 sets, daily range): BP systolic 133–166; BP diastolic 56–75; PULSE 57–77; RESP 13–20; TEMP 36.1–37; O2SAT 94–99; BMI 25.1
--- NOTE | 2023-02-09 03:46 | PC.NURSE ---
Addendum entered by Waqar Salgado RN 02/09/23 03:50: RIGHT HAND WRAPPED BY HAZARDOUS WASTE TECHNICIAN PER REPORT FOR SMALL SKIN TEAR..DRESSING DRY/INTACT...SMALL NON-DRAINING ABRASION TO LEFT BURGOS Original Note: ADMIT TO ICU APPROX 23:45...ALERT..ORIENTED X3..SPEECH CLEAR..FISCHER WITH GOOD STRENGTH...SWALLOWS LIQUIDS W/O DIFFICULTY...STANDS AT BEDSIDE TO VOID WITH STEADY GAIT...FORGETFUL AT TIMES...CLIMBS OOB TO VOID W/O RINGING FOR ASSISTANCE..BED ALARMS IN PLACE....MILDLY GUEVARA WITH HARSH COUGH AND MILD EXPIRATORY WHEEZES WITH OOB TO VOID...SCHEDULED AND PRN UPDRAFTS ORDERED BY ICU PA....DAILY ISORDIL RE-ORDERED BY PA....AM DOSE GIVEN APPROX 03;30 PER ICU PA...RESTFUL..DENIES/OFFERS NO COMPLAINTS
[2023-02-09 05:25] LABS: MANUAL DIFF FLAG NO
[2023-02-09 05:27] LABS: Basophils Absolute Auto 0.1 X10*3/uL (0.0-0.2); Basophils Percent Auto 0.5 % (0-2); Eosinophils Absolute Auto 0.3 X10*3/uL (0.0-0.4); Eosinophils Percent Auto 3.2 % (0-4); Hematocrit 36.8 % (42.0-52.0); Hemoglobin 13.4 g/dl (14.0-18.0); Imm Gran Abs Auto 0.04 X10*3/uL (0.00-0.03); Imm Gran Pct Auto 0.4 % (0.0-0.4); Lymphocytes Absolute Auto 1.2 X10*3/uL (1.2-4.9); Lymphocytes Percent Auto 11.2 % (20-40); Mean Corpuscular HGB Conc 36.4 g/dl (31.0-36.0); Mean Corpuscular Hemoglobin 31.2 pg (27.0-33.0); Mean Corpuscular Volume 85.6 fL (80.0-98.0); Mean Platelet Volume 9.4 fL (9.4-12.4); Monocytes Absolute Auto 1.5 X10*3/uL (0.1-1.2); Monocytes Percent Auto 14.2 % (2-11); Neutrophils Absolute Auto 7.3 x10*3/uL (2.0-8.3); Neutrophils Percent Auto 70.5 % (45-73); Platelet Count 247 X10*3/uL (160-400); Red Cell Distribution Width 12.4 % (11.0-16.0); White Blood Count 10.4 X10*3/uL (4.8-10.8)
[2023-02-09 05:46] LABS: Alanine Aminotransferase 36 U/L (0-40); Albumin Level 3.6 g/dL (3.5-5.0); Alkaline Phosphatase 121 U/L (39-117); Anion Gap 11 (12-20); Aspartate Amino Transferase 48 U/L (5-37); Bilirubin Total 0.8 mg/dL (0.0-1.0); Blood Urea Nitrogen 13 mg/dL (9-16); Calcium 8.7 mg/dL (8.4-10.2); Carbon Dioxide 22 mmol/L (22-29); Chloride 97 mmol/L (96-108); Creatinine Clr Calc Pharmacy 56.2; Estimated Glomerular Filt Rate > 60; Glucose Random 89 mg/dL (60-115); Potassium 4.1 mmol/L (3.3-5.1); Sodium 126 mmol/L (135-145); Total Protein 6.4 g/dL (6.5-8.0)
--- NOTE | 2023-02-09 08:58 | MHC.CM.PN ---
CM met with Patient at bedside. Patient lives in a house with his /HCP and he uses a cane and a walker to assist with mobility. Home vs home with new [facility] pending a PT eval is the tentative plan and CM has initiated and will follow for dc planning. Patient has received Moderna/Covid vax x3 and [facility] [place] (Previous Provider left the practice).
--- NOTE | 2023-02-09 11:23 | HO.PM.IMPN ---
Subjective Subjective Date of Service: 02/09/23 Interval History: Feels well No headache No N/V Review of Systems Review of Systems: Yes all other systems are reviewed and are negative Physical Exam Vital Signs: Vital Signs: Last Vital Signs Temp 97.0 F 02/09/23 07:00 Pulse 67 02/09/23 07:00 Resp 16 02/09/23 07:00 BP 149/59 H 02/09/23 07:00 Pulse Ox 96 02/09/23 07:00 O2 Del Method Room Air 02/09/23 07:00 BMI result Body Mass Index 25.1 Gen: in no acute distress HEENT: sclera anicteric, moist mucus membranes Neck: supple Lungs: clear to auscultation bilaterally Heart: regular rate and rhythm, no murmurs Abd: soft, non-tender, non-distended Ext: no edema Skin: warm/well-perfused Neuro: alert, no focal findings Psych: appropriate affect Objective Data Active Medications Albuterol Sulfate (Albuterol Sulfate (0.083%) 2.5 Mg/3 Ml Vial.Neb) 2.5 mg INHALE Q4H PRN PRN Reason: Wheezing Albuterol/Ipratropium (Albuterol/Iprat 2.5/0.5mg 3 Ml Ampul.Neb) 3 ml INHALE Q6H [facility] Last Admin: 02/09/23 08:39 Dose: Not Given Documented By: BRIAN Non-Admin Reason: Patient Refused Aspirin (Aspirin Enteric Coated 81 Mg Tablet.) 81 mg PO BEDTIME [facility] Atorvastatin Calcium (Atorvastatin Calcium 80 Mg Tablet) 80 mg PO BEDTIME [facility] Enoxaparin Sodium (Enoxaparin Sodium 40 Mg/0.4 Ml Syringe) 40 mg SUBCUT Q24H [facility] Last Admin: 02/09/23 07:22 Dose: 40 mg Documented By: MI Isosorbide Mononitrate (Isosorbide Mononitrate 30 Mg Tab.Er.24h) 30 mg PO DAILY [facility]; Protocol Last Admin: 02/09/23 03:35 Dose: 30 mg Documented By: MAGALI Latanoprost (Latanoprost 0.005 % Ophth Mikala 2.5 Ml Drops) 1 drop EYE-BOTH BEDTIME [facility] Levetiracetam (Levetiracetam 250 Mg Tablet) 250 mg PO BEDTIME [facility] Pharmacy Consult (Consult Rx Perform Med Rec) 1 each MISCELLANE ONCE PRN PRN Reason: Consult order Tamsulosin HCl (Tamsulosin Hcl 0.4 Mg Capsule) 0.4 mg PO BEDTIME [facility] Labs 02/09/23 05:14 02/09/23 08:16 Labs: Laboratory Results - last 24 hr 02/08/23 02/08/23 02/08/23 15:29 15:29 15:31 MCV 86.0 MCH 30.9 MCHC 35.9 RDW 12.1 Plt Count 228 MPV 9.7 Immature Gran % (Auto) 0.4 Neut % (Auto) 72.6 Lymph % (Auto) 8.9 L [place] % (Auto) 13.3 H Eos % (Auto) 4.6 H Baso % (Auto) 0.2 Lymph # (Auto) 0.7 L [place] # (Auto) 1.1 Eos # (Auto) 0.4 Baso # (Auto) 0.0 Abs Immat Gran (auto) 0.03 Absolute Neuts (auto) 5.9 Absolute Nucleated RBC 0.000 Nucleated RBC % (auto) 0.0 PT 13.2 H INR 1.1 VBG pH VBG pCO2 VBG pO2 VBG HCO3 VBG O2 Saturation VBG Base Excess Anion Gap Estim Creat Clear Calc Estimated GFR Random Glucose Osmolality Lactic Acid 0.9 Calcium Total Bilirubin Direct Bilirubin AST ALT Alkaline Phosphatase Troponin I High Sens B-Natriuretic Peptide Total Protein Albumin TSH Random Cortisol Urine Color Urine Appearance Urine pH Ur Specific [place] Urine Protein Urine Glucose (UA) Urine Ketones Urine Blood Urine Nitrite Ur Leukocyte Esterase Urine Osmolality Ur Random Sodium COVID-19 ([facility]) COVID-19 Clin Com 02/08/23 02/08/23 02/08/23 15:31 15:31 15:31 MCV MCH MCHC RDW Plt Count MPV Immature Gran % (Auto) Neut % (Auto) Lymph % (Auto) [place] % (Auto) Eos % (Auto) Baso % (Auto) Lymph # (Auto) [place] # (Auto) Eos # (Auto) Baso # (Auto) Abs Immat Gran (auto) Absolute Neuts (auto) Absolute Nucleated RBC Nucleated RBC % (auto) PT INR VBG pH VBG pCO2 VBG pO2 VBG HCO3 VBG O2 Saturation VBG Base Excess Anion Gap 12 Estim Creat Clear Calc 50.9 Estimated GFR > 60 Random Glucose 128 H Osmolality Lactic Acid Calcium 8.1 L D Total Bilirubin 0.9 Direct Bilirubin 0.4 AST 48 H ALT 32 Alkaline Phosphatase 113 Troponin I High Sens 9.7 B-Natriuretic Peptide Total Protein 5.9 L Albumin 3.2 L TSH Random Cortisol Urine Color Urine Appearance Urine pH Ur Specific [place] Urine Protein Urine Glucose (UA) Urine Ketones Urine Blood Urine Nitrite Ur Leukocyte Esterase Urine Osmolality Ur Random Sodium COVID-19 ([facility]) Negative COVID-19 Clin Com See Note 02/08/23 02/08/23 02/08/23 15:31 15:34 16:27 MCV MCH MCHC RDW Plt Count MPV Immature Gran % (Auto) Neut % (Auto) Lymph % (Auto) [place] % (Auto) Eos % (Auto) Baso % (Auto) Lymph # (Auto) [place] # (Auto) Eos # (Auto) Baso # (Auto) Abs Immat Gran (auto) Absolute Neuts (auto) Absolute Nucleated RBC Nucleated RBC % (auto) PT INR VBG pH 7.35 VBG pCO2 44 VBG pO2 38 VBG HCO3 25 VBG O2 Saturation 55.0 VBG Base Excess -0.5 Anion Gap Estim Creat Clear Calc Estimated GFR Random Glucose Osmolality 253 L Lactic Acid Calcium Total Bilirubin Direct Bilirubin AST ALT Alkaline Phosphatase Troponin I High Sens B-Natriuretic Peptide 92 Total Protein Albumin TSH Random Cortisol Urine Color Urine Appearance Urine pH Ur Specific [place] Urine Protein Urine Glucose (UA) Urine Ketones Urine Blood Urine Nitrite Ur Leukocyte Esterase Urine Osmolality Ur Random Sodium COVID-19 ([facility]) COVID-19 Clin Com 02/08/23 02/08/23 02/08/23 16:27 16:53 16:53 MCV MCH MCHC RDW Plt Count MPV Immature Gran % (Auto) Neut % (Auto) Lymph % (Auto) [place] % (Auto) Eos % (Auto) Baso % (Auto) Lymph # (Auto) [place] # (Auto) Eos # (Auto) Baso # (Auto) Abs Immat Gran (auto) Absolute Neuts (auto) Absolute Nucleated RBC Nucleated RBC % (auto) PT INR VBG pH VBG pCO2 VBG pO2 VBG HCO3 VBG O2 Saturation VBG Base Excess Anion Gap 11 L Estim Creat Clear Calc 52.9 Estimated GFR > 60 Random Glucose 105 Osmolality Lactic Acid Calcium 8.1 L Total Bilirubin Direct Bilirubin AST ALT Alkaline Phosphatase Troponin I High Sens B-Natriuretic Peptide Total Protein Albumin TSH Random Cortisol Urine Color Urine Appearance Urine pH Ur Specific [place] Urine Protein Urine Glucose (UA) Urine Ketones Urine Blood Urine Nitrite Ur Leukocyte Esterase Urine Osmolality 235 L Ur Random Sodium 46.0 COVID-19 ([facility]) COVID-19 Clin Com 02/08/23 02/08/23 02/09/23 16:53 21:18 00:56 MCV MCH MCHC RDW Plt Count MPV Immature Gran % (Auto) Neut % (Auto) Lymph % (Auto) [place] % (Auto) Eos % (Auto) Baso % (Auto) Lymph # (Auto) [place] # (Auto) Eos # (Auto) Baso # (Auto) Abs Immat Gran (auto) Absolute Neuts (auto) Absolute Nucleated RBC Nucleated RBC % (auto) PT INR VBG pH VBG pCO2 VBG pO2 VBG HCO3 VBG O2 Saturation VBG Base Excess Anion Gap 12 13 Estim Creat Clear Calc 52.4 56.2 Estimated GFR > 60 > 60 Random Glucose 123 H 104 Osmolality Lactic Acid Calcium 8.5 8.5 Total Bilirubin Direct Bilirubin AST ALT Alkaline Phosphatase Troponin I High Sens B-Natriuretic Peptide Total Protein Albumin TSH Random Cortisol Urine Color Yellow Urine Appearance Clear Urine pH 6.5 Ur Specific [place] <= 1.005 Urine Protein Negative Urine Glucose (UA) Negative Urine Ketones Negative Urine Blood Negative Urine Nitrite Negative Ur Leukocyte Esterase Negative Urine Osmolality Ur Random Sodium COVID-19 ([facility]) COVID-19 Clin Com 02/09/23 02/09/23 02/09/23 05:14 05:15 08:16 MCV 85.6 MCH 31.2 MCHC 36.4 H RDW 12.4 Plt Count 247 MPV 9.4 Immature Gran % (Auto) 0.4 Neut % (Auto) 70.5 Lymph % (Auto) 11.2 L [place] % (Auto) 14.2 H Eos % (Auto) 3.2 Baso % (Auto) 0.5 Lymph # (Auto) 1.2 [place] # (Auto) 1.5 H Eos # (Auto) 0.3 Baso # (Auto) 0.1 Abs Immat Gran (auto) 0.04 H Absolute Neuts (auto) 7.3 Absolute Nucleated RBC 0.000 Nucleated RBC % (auto) 0.0 PT INR VBG pH VBG pCO2 VBG pO2 VBG HCO3 VBG O2 Saturation VBG Base Excess Anion Gap 11 L Estim Creat Clear Calc 56.2 Estimated GFR > 60 Random Glucose 89 Osmolality Lactic Acid Calcium 8.7 Total Bilirubin 0.8 Direct Bilirubin AST 48 H ALT 36 Alkaline Phosphatase 121 H Troponin I High Sens B-Natriuretic Peptide Total Protein 6.4 L Albumin 3.6 TSH 0.41 Random Cortisol Urine Color Urine Appearance Urine pH Ur Specific [place] Urine Protein Urine Glucose (UA) Urine Ketones Urine Blood Urine Nitrite Ur Leukocyte Esterase Urine Osmolality Ur Random Sodium COVID-19 ([facility]) COVID-19 Clin Com 02/09/23 08:16 MCV MCH MCHC RDW Plt Count MPV Immature Gran % (Auto) Neut % (Auto) Lymph % (Auto) [place] % (Auto) Eos % (Auto) Baso % (Auto) Lymph # (Auto) [place] # (Auto) Eos # (Auto) Baso # (Auto) Abs Immat Gran (auto) Absolute Neuts (auto) Absolute Nucleated RBC Nucleated RBC % (auto) PT INR VBG pH VBG pCO2 VBG pO2 VBG HCO3 VBG O2 Saturation VBG Base Excess Anion Gap Estim Creat Clear Calc Estimated GFR Random Glucose Osmolality Lactic Acid Calcium Total Bilirubin Direct Bilirubin AST ALT Alkaline Phosphatase Troponin I High Sens B-Natriuretic Peptide Total Protein Albumin TSH Random Cortisol 19.3 Urine Color Urine Appearance Urine pH Ur Specific [place] Urine Protein Urine Glucose (UA) Urine Ketones Urine Blood Urine Nitrite Ur Leukocyte Esterase Urine Osmolality Ur Random Sodium COVID-19 ([facility]) COVID-19 Clin Com Assessment and Plan (1) Acute hyponatremia: Status: Acute Plan d#2 85yo M with CAD s/p PCI to LCX, ischemic CM, carotid stenosis s/p R CEA, HTN, HLD, prior CVA with no residual deficits, sz disorder called EMS due to confusion, decreased PO intake x 1 mo EMS found him hypotensive with SBP <60, given 500 cc NS and BP 117/55 upon arrival to ED; found to have Na 117 3% NaCl started in ED, admitted to ICU, stepped down to IMC once Na 124 # hypo-osmolar hyponatremia - decreased PO intake + HCTZ. continue to monitor Na q4h. Nephrology consult re correction rate # metabolic encephalopathy - due to hypoNa, resolved # CAD # CVA - ASA, atorvastatin # ischemic CM - Imdur # HTN - d/c HCTZ # sz disorder - levetiracetam # VTE ppx: LMWH # dispo: TBD In my clinical judgment, the patient requires continued inpatient hospitalization for the following reasons: hypoNa ? Time Spent With Patient Time: Total time managing care of this patient today ___40_ minutes. Quality Stroke Does the patient have a stroke diagnosis?: No VTE Prior VTE?: No VTE Risk Level:: Medical - moderate - high VTE Device Contraindication: N/A - Device Ordered VTE Drug Contraindication: N/A - Med Ordered
--- NOTE | 2023-02-09 14:11 | MHC.SL.SWA ---
Speech Pathologist Impression: Risk of aspiration, oral phase dysphagia d/t edentulous status Risk of Aspiration Due to: Neurological Condition Poor PO Intake Dysphasia Diet Status: Downgrade Liquid Consistency and Strategies for Safe Swallow: Liquid Intake Recommendation: Thin Liquid Intake Strategies: Small Sips Solid Food Consistency: Dietary Recommendations: Grnd/Mech Altered (NDD2) Additional Modifications to Solid Foods: Pt is edentulous and states his dentures were left at home- He is recommended to start on GROUND/MECH ALTERED (NDD2) solids for ease of mastication with THIN liquids, pills WHOLE with LIQUID. Pt is able to feed himself, but may need cues to ensure aspiration precautions. Pt may be able to tolerate more advanced textures with dentures in. Diet order updated by REGIONAL ACCOUNT EXECUTIVE. Notified team via [employer] Message (MD, RN, RD). REGIONAL ACCOUNT EXECUTIVE will continue to follow. Oral Medication Intake: Whole with Liquid Please contact the pharmacy regarding appropriate crushable or liquid drug formulations that are available whenever modified delivery is recommended. Compensatory Strategies and Precautions to be Taken for Safe Swallow: Sitting Upright (90 deg) Double Swallow Small Bites and Sips Rate of Ingestion Change Avoid Specific Foods Supervision While Eating and Drinking for Safe Swallow: Total Supervision (1:1) Foods to Avoid: Hard, tough to chew solids; sticky textures Swallowing Recommended Treatments: Compens. Strategy Educat. Recommendation for Speech: Inpatient Speech Therapy Arcade Attendant Clinican/Clinical Fellow: No Supervisory Statement: I have reviewed and agree with the student/clinical fellow's documentation: N/A Speech Language Pathologist: Debbie Araya M.A., CCC-REGIONAL ACCOUNT EXECUTIVE
--- NOTE | 2023-02-09 22:01 | PM.EVENT ---
Event Note Date of Service: 02/09/23 Event Note: Pt seen and examined Full consult dictated Time Spent With Patient Time: Total time managing care of this patient today ____ minutes.
[2023-02-10 03:28] VITALS: BP 152/71; PULSE 89; RESP 18; TEMP 36.7; O2SAT 97
[2023-02-10 05:44] VITALS: BMI 25.1
[2023-02-10 07:10] VITALS: BP 136/88; PULSE 63; RESP 20; TEMP 36.4; O2SAT 96
[2023-02-10 08:00] VITALS: BMI 25.4
--- NOTE | 2023-02-10 09:54 | HO.PM.IMPN ---
Subjective Subjective Date of Service: 02/10/23 Interval History: wants to go home Na corrected too fast yesterday, given ddaVP + D5W to slow it back down Review of Systems Review of Systems: Yes all other systems are reviewed and are negative Physical Exam Vital Signs: Vital Signs: Last Vital Signs Temp 97.5 F 02/10/23 07:10 Pulse 63 02/10/23 07:10 Resp 20 02/10/23 07:10 BP 136/88 02/10/23 07:10 Pulse Ox 96 02/10/23 07:10 O2 Del Method Room Air 02/10/23 07:10 BMI result Body Mass Index 25.4 Gen: in no acute distress HEENT: sclera anicteric, moist mucus membranes Neck: supple Lungs: clear to auscultation bilaterally Heart: regular rate and rhythm, no murmurs Abd: soft, non-tender, non-distended Ext: no edema Skin: warm/well-perfused Neuro: alert, no focal findings Psych: appropriate affect Objective Data Active Medications Albuterol Sulfate (Albuterol Sulfate (0.083%) 2.5 Mg/3 Ml Vial.Neb) 2.5 mg INHALE Q4H PRN PRN Reason: Wheezing Albuterol/Ipratropium (Albuterol/Iprat 2.5/0.5mg 3 Ml Ampul.Neb) 3 ml INHALE Q6H [facility] Last Admin: 02/10/23 07:51 Dose: Not Given Documented By: JENNIFER Non-Admin Reason: Patient Refused Aspirin (Aspirin Enteric Coated 81 Mg Tablet.) 81 mg PO BEDTIME [facility] Last Admin: 02/09/23 20:45 Dose: 81 mg Documented By: ANA Atorvastatin Calcium (Atorvastatin Calcium 80 Mg Tablet) 80 mg PO BEDTIME [facility] Last Admin: 02/09/23 20:45 Dose: 80 mg Documented By: ANA Enoxaparin Sodium (Enoxaparin Sodium 40 Mg/0.4 Ml Syringe) 40 mg SUBCUT Q24H [facility] Last Admin: 02/10/23 06:46 Dose: 40 mg Documented By: CARMENZA Isosorbide Mononitrate (Isosorbide Mononitrate 30 Mg Tab.Er.24h) 30 mg PO DAILY [facility]; Protocol Last Admin: 02/10/23 09:21 Dose: 30 mg Documented By: CLAIRE Latanoprost (Latanoprost 0.005 % Ophth Mikala 2.5 Ml Drops) 1 drop EYE-BOTH BEDTIME [facility] Last Admin: 02/09/23 22:32 Dose: 1 drop Documented By: ANA Levetiracetam (Levetiracetam 250 Mg Tablet) 250 mg PO BEDTIME [facility] Last Admin: 02/09/23 20:45 Dose: 250 mg Documented By: ANA Pharmacy Consult (Consult Rx Perform Med Rec) 1 each MISCELLANE ONCE PRN PRN Reason: Consult order Tamsulosin HCl (Tamsulosin Hcl 0.4 Mg Capsule) 0.4 mg PO BEDTIME [facility] Last Admin: 02/09/23 20:45 Dose: 0.4 mg Documented By: ANA Labs 02/09/23 05:14 02/10/23 06:14 Labs: Laboratory Results - last 24 hr 02/10/23 06:14 Anion Gap 11 L Estim Creat Clear Calc 59.3 Estimated GFR > 60 Random Glucose 117 H Calcium 8.7 Microbiology Microbiology Results: Microbiology 02/08/23 16:27 Blood Culture - Preliminary Blood - Venous No growth after 24 hours. 02/08/23 15:56 Blood Culture - Preliminary Blood - Venous No growth after 24 hours. Assessment and Plan (1) Acute hyponatremia: Status: Acute Plan d#3 85yo M with CAD s/p PCI to LCX, ischemic CM, carotid stenosis s/p R CEA, HTN, HLD, prior CVA with no residual deficits, sz disorder called EMS due to confusion, decreased PO intake x 1 mo EMS found him hypotensive with SBP <60, given 500 cc NS and BP 117/55 upon arrival to ED; found to have Na 117 3% NaCl started in ED, admitted to ICU, stepped down to IMC once Na 124 # hypo-osmolar hyponatremia - due to decreased PO intake + HCTZ. continue to monitor Na q4h x3. Nephrology following. # metabolic encephalopathy - due to hypoNa, resolved # CAD # CVA - ASA, atorvastatin # ischemic CM - Imdur # HTN - d/c HCTZ # sz disorder - levetiracetam # VTE ppx: LMWH # dispo: TBD In my clinical judgment, the patient requires continued inpatient hospitalization for the following reasons: hypoNa ? Time Spent With Patient Time: Total time managing care of this patient today __35__ minutes. Quality Stroke Does the patient have a stroke diagnosis?: No VTE Prior VTE?: No VTE Risk Level:: Medical - moderate - high VTE Device Contraindication: N/A - Device Ordered VTE Drug Contraindication: N/A - Med Ordered
[2023-02-10 11:17] VITALS: BP 122/65; PULSE 74; RESP 20; TEMP 36.3; O2SAT 95
--- NOTE | 2023-02-10 14:16 | PM.PNNEP ---
Subjective Subjective Date of Service: 02/10/23 Interval history: wants to go home Na corrected too fast yesterday, given ddaVP + D5W to slow it back down Physical Exam Vital Signs: Vital Signs: Last Vital Signs Temp 97.3 F 02/10/23 11:17 Pulse 74 02/10/23 11:17 Resp 20 02/10/23 11:17 BP 122/65 02/10/23 11:17 Pulse Ox 95 02/10/23 11:17 O2 Del Method Room Air 02/10/23 11:17 BMI result Body Mass Index 25.4 Gen: in no acute distress HEENT: sclera anicteric, moist mucus membranes Neck: supple Lungs: clear to auscultation bilaterally Heart: regular rate and rhythm, no murmurs Abd: soft, non-tender, non-distended Ext: no edema Skin: warm/well-perfused Neuro: alert, no focal findings Psych: appropriate affect Objective Data Labs 02/09/23 05:14 02/10/23 10:06 Labs: Laboratory Results - last 24 hr 02/09/23 02/09/23 02/09/23 16:46 20:17 23:01 Sodium Cancelled 128 L 126 L Potassium Chloride Carbon Dioxide Anion Gap BUN Creatinine Estim Creat Clear Calc Estimated GFR Random Glucose Calcium 02/10/23 02/10/23 02/10/23 01:56 06:14 10:06 Sodium 126 L 123 L 125 L Potassium 3.8 Chloride 93 L Carbon Dioxide 23 Anion Gap 11 L BUN 11 Creatinine 0.91 Estim Creat Clear Calc 59.3 Estimated GFR > 60 Random Glucose 117 H Calcium 8.7 Microbiology Microbiology Results: Microbiology 02/08/23 16:27 Blood - Venous Blood Culture - Preliminary No growth after 24 hours. 02/08/23 15:56 Blood - Venous Blood Culture - Preliminary No growth after 24 hours. Procedures Date of Service Date of Service: 02/10/23 Assessment & Plan Assessment and plan (1) Acute hyponatremia: Status: Acute Plan 85yo M with CAD s/p PCI to LCX, ischemic CM, carotid stenosis s/p R CEA, HTN, HLD, prior CVA with no residual deficits, sz disorder called EMS due to confusion, decreased PO intake x 1 mo EMS found him hypotensive with SBP <60, given 500 cc NS and BP 117/55 upon arrival to ED; found to have Na 117 3% NaCl started in ED, admitted to ICU, stepped down to IMC once Na 124 # hypo-osmolar hyponatremia # metabolic encephalopathy - due to hypoNa, resolved Ever Fluid restriction 1.5 liters Avoid HCTZ No need for IVF NAcl tabs 1 g TID x 2 days Can be d/c'd home in am if Na is > 127 Time Spent With Patient Time: Total time managing care of this patient today ____ minutes. Progress Note: Quality Stroke Does the patient have a stroke diagnosis?: No
[2023-02-10 15:52] VITALS: BP 143/63; PULSE 82; RESP 17; TEMP 36.8; O2SAT 93
[2023-02-10 19:02] VITALS: BP 124/65; PULSE 80; RESP 17; TEMP 36.7; O2SAT 95
--- NOTE | 2023-02-10 19:32 | PC.NURSE ---
Addendum entered by Chrsiten Reyes RN 02/11/23 16:13: this lunch time, pt family brought in regular food again. pt was not following his diet as cardiac with mech/ground diet. Reinforced the needs of following medical recommendations again. pt and family aware about the risk of choking, MD lacy. Original Note: pt family brought in food during lunch time. Pt is on ground mech diet. This nurse went in to explain the risk of choking and pneumonia for patient and pt family, had recommended doing small bite and cutting food in small pieces to eat. pt was confident and followed the directions. Pt finished his lunch without difficulty. No signs of aspirations.
[2023-02-10 23:37] VITALS: BP 152/65; PULSE 82; RESP 17; TEMP 36.2; O2SAT 95
[2023-02-11 03:31] VITALS: BP 153/73; PULSE 89; RESP 16; TEMP 36.2; O2SAT 97
[2023-02-11 06:00] VITALS: BMI 25.3
[2023-02-11 06:57] LABS: Anion Gap 11 (12-20); Calcium 8.8 mg/dL (8.4-10.2); Carbon Dioxide 25 mmol/L (22-29); Chloride 93 mmol/L (96-108); Glucose Random 90 mg/dL (60-115); Potassium 4.6 mmol/L (3.3-5.1); Sodium 124 mmol/L (135-145)
[2023-02-11 07:09] LABS: Blood Urea Nitrogen 10 mg/dL (9-16); Creatinine Clr Calc Pharmacy 63.5; Estimated Glomerular Filt Rate > 60
[2023-02-11 07:39] VITALS: BP 146/70; PULSE 75; RESP 18; TEMP 36.6; O2SAT 95
[2023-02-11 08:00] VITALS: BMI 25.5
--- NOTE | 2023-02-11 09:11 | HO.PM.IMPN ---
Subjective Subjective Date of Service: 02/11/23 Interval History: Wants to leave Sodium level unchanged from yesterday Physical Exam Vital Signs: Vital Signs: Last Vital Signs Temp 97.8 F 02/11/23 07:39 Pulse 75 02/11/23 07:39 Resp 18 02/11/23 07:39 BP 146/70 H 02/11/23 07:39 Pulse Ox 95 02/11/23 07:39 O2 Del Method Room Air 02/11/23 07:39 BMI result Body Mass Index 25.3 Gen: in no acute distress HEENT: sclera anicteric, moist mucus membranes Neck: supple Lungs: clear to auscultation bilaterally Heart: regular rate and rhythm, no murmurs Abd: soft, non-tender, non-distended Ext: no edema Skin: warm/well-perfused Neuro: alert, no focal findings Psych: appropriate affect Objective Data Active Medications Albuterol Sulfate (Albuterol Sulfate (0.083%) 2.5 Mg/3 Ml Vial.Neb) 2.5 mg INHALE Q4H PRN PRN Reason: Wheezing Albuterol/Ipratropium (Albuterol/Iprat 2.5/0.5mg 3 Ml Ampul.Neb) 3 ml INHALE Q6H [facility] Last Admin: 02/11/23 07:52 Dose: Not Given Documented By: JENNIFER Non-Admin Reason: Patient Refused Aspirin (Aspirin Enteric Coated 81 Mg Tablet.) 81 mg PO BEDTIME [facility] Last Admin: 02/10/23 20:48 Dose: 81 mg Documented By: JAN Atorvastatin Calcium (Atorvastatin Calcium 80 Mg Tablet) 80 mg PO BEDTIME [facility] Last Admin: 02/10/23 20:48 Dose: 80 mg Documented By: JAN Enoxaparin Sodium (Enoxaparin Sodium 40 Mg/0.4 Ml Syringe) 40 mg SUBCUT Q24H [facility] Last Admin: 02/11/23 07:46 Dose: 40 mg Documented By: CLAIRE Isosorbide Mononitrate (Isosorbide Mononitrate 30 Mg Tab.Er.24h) 30 mg PO DAILY [facility]; Protocol Last Admin: 02/11/23 07:46 Dose: 30 mg Documented By: CLAIRE Latanoprost (Latanoprost 0.005 % Ophth Mikala 2.5 Ml Drops) 1 drop EYE-BOTH BEDTIME [facility] Last Admin: 02/10/23 20:49 Dose: 1 drop Documented By: JAN Levetiracetam (Levetiracetam 250 Mg Tablet) 250 mg PO BEDTIME [facility] Last Admin: 02/10/23 20:48 Dose: 250 mg Documented By: JAN Pharmacy Consult (Consult Rx Perform Med Rec) 1 each MISCELLANE ONCE PRN PRN Reason: Consult order Sodium Chloride (Sodium Chloride Tab 1 Gm Tablet) 1 gm PO TID [facility] Stop: 02/12/23 14:59 Last Admin: 02/11/23 07:46 Dose: 1 gm Documented By: CLAIRE Tamsulosin HCl (Tamsulosin Hcl 0.4 Mg Capsule) 0.4 mg PO BEDTIME [facility] Last Admin: 02/10/23 20:48 Dose: 0.4 mg Documented By: JAN Labs 02/09/23 05:14 02/11/23 05:36 Labs: Laboratory Results - last 24 hr 02/11/23 05:36 Anion Gap 11 L Estim Creat Clear Calc 63.5 Estimated GFR > 60 Random Glucose 90 Calcium 8.8 Microbiology Microbiology Results: Microbiology 02/08/23 16:27 Blood Culture - Preliminary Blood - Venous No growth after 48 hours. 02/08/23 15:56 Blood Culture - Preliminary Blood - Venous No growth after 48 hours. Assessment and Plan (1) Acute hyponatremia: Status: Acute Plan d#4 85yo M with CAD s/p PCI to LCX, ischemic CM, carotid stenosis s/p R CEA, HTN, HLD, prior CVA with no residual deficits, sz disorder called EMS due to confusion, decreased PO intake x 1 mo EMS found him hypotensive with SBP <60, given 500 cc NS and BP 117/55 upon arrival to ED; found to have Na 117 3% NaCl started in ED, admitted to ICU, stepped down to IMC once Na 124 # hypo-osmolar hyponatremia - due to decreased PO intake + HCTZ. continue to monitor Na presently 124 . Nephrology to guide further management # metabolic encephalopathy - due to hypoNa, resolved # CAD # CVA - ASA, atorvastatin # ischemic CM - Imdur # HTN - d/c HCTZ # sz disorder - levetiracetam # VTE ppx: LMWH # dispo: TBD In my clinical judgment, the patient requires continued inpatient hospitalization for the following reasons: hypoNa that has not yet resolved Advised against him leaving today ? Time Spent With Patient Time: Total time managing care of this patient today ____ minutes. Quality Stroke Does the patient have a stroke diagnosis?: No VTE Prior VTE?: No VTE Risk Level:: Medical - moderate - high VTE Device Contraindication: N/A - Device Ordered VTE Drug Contraindication: N/A - Med Ordered
[2023-02-11 11:43] VITALS: BP 135/63; PULSE 77; RESP 18; TEMP 36.6; O2SAT 99
--- NOTE | 2023-02-11 14:42 | PM.PNNEP ---
Subjective Subjective Date of Service: 02/11/23 Interval history: Wants to leave Sodium level unchanged from yesterday Physical Exam Vital Signs: Vital Signs: Last Vital Signs Temp 97.9 F 02/11/23 11:43 Pulse 77 02/11/23 11:43 Resp 18 02/11/23 11:43 BP 135/63 02/11/23 11:43 Pulse Ox 99 02/11/23 11:43 O2 Del Method Room Air 02/11/23 11:43 BMI result Body Mass Index 25.5 Gen: in no acute distress HEENT: sclera anicteric, moist mucus membranes Neck: supple Lungs: clear to auscultation bilaterally Heart: regular rate and rhythm, no murmurs Abd: soft, non-tender, non-distended Ext: no edema Skin: warm/well-perfused Neuro: alert, no focal findings Psych: appropriate affect Objective Data Labs 02/09/23 05:14 02/11/23 05:36 Labs: Laboratory Results - last 24 hr 02/10/23 02/11/23 18:05 05:36 Sodium 124 L 124 L Potassium 4.6 D Chloride 93 L Carbon Dioxide 25 Anion Gap 11 L BUN 10 Creatinine 0.85 Estim Creat Clear Calc 63.5 Estimated GFR > 60 Random Glucose 90 Calcium 8.8 Microbiology Microbiology Results: Microbiology 02/08/23 16:27 Blood - Venous Blood Culture - Preliminary No growth after 48 hours. 02/08/23 15:56 Blood - Venous Blood Culture - Preliminary No growth after 48 hours. 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, sz disorder called EMS due to confusion, decreased PO intake x 1 mo EMS found him hypotensive with SBP <60, given 500 cc NS and BP 117/55 upon arrival to ED; found to have Na 117 3% NaCl started in ED, admitted to ICU, stepped down to [facility]MC once Na 124 # hypo-osmolar hyponatremia # metabolic encephalopathy - due to hypoNa, resolved Ever CT head -ve/ Cortisol/ THH normal Repeast U Osm/; U Na : S osm - Ordered Fluid restriction 1.5 liters Avoid HCTZ No need for IVF NAcl tabs 1 g TID x 2 days - started last PM Urea 15 G x 1 Can be d/c'd home in am if Na is > 127 Time Spent With Patient Time: Total time managing care of this patient today ____ minutes. Progress Note: Quality Stroke Does the patient have a stroke diagnosis?: No
[2023-02-11 15:37] VITALS: BP 152/64; PULSE 66; RESP 15; TEMP 36.4; O2SAT 95
[2023-02-11 19:46] VITALS: BP 145/70; PULSE 85; RESP 14; TEMP 36.2; O2SAT 97
[2023-02-11 23:49] VITALS: BP 143/68; PULSE 90; RESP 20; TEMP 36.2; O2SAT 97
[2023-02-12 03:48] VITALS: BP 127/88; PULSE 87; RESP 18; TEMP 36.1; O2SAT 96
[2023-02-12 07:39] VITALS: BP 155/64; PULSE 88; RESP 20; TEMP 36.1; O2SAT 94
[2023-02-12 08:37] LABS: Anion Gap 11 (12-20); Blood Urea Nitrogen 16 mg/dL (9-16); Calcium 8.9 mg/dL (8.4-10.2); Carbon Dioxide 24 mmol/L (22-29); Chloride 100 mmol/L (96-108); Creatinine Clr Calc Pharmacy 63.5; Estimated Glomerular Filt Rate > 60; Glucose Random 99 mg/dL (60-115); Potassium 4.2 mmol/L (3.3-5.1); Sodium 131 mmol/L (135-145)
--- NOTE | 2023-02-12 10:58 | W.MHC.F2F ---
Service Date Service Date: 02/12/23 Encounter Date of encounter: 02/12/23 Reasons for Services Signs and symptoms assessed: hypoNa PT needs Gross Deconditioning, Impaired Bed Mobility, Impaired Gait Pattern, Impaired Safety ,Impaired Standing Balance, Impaired Transfer Ability,Muscle Weakness Reason for penitentiary: medication management Reason for physical therapy: home safety and mobility, therapeutic exercises, gait/transfer training, assess need for DME, ADL training and energy conservation MD Overseeing Care: Alejandra Howell Homebound: Leaving the home is medically contraindicated at this time without the asist of a device and/or another person due th the listed conditions above and below. Reason homebound: unsteady gait / fall risk and weakness related to hospital stay Homebound supporting statement: Bed Mobility, Transfer Training,Gait Training,Stair Training, Therapeutic Activities, Therapeutic Exercise,Neuro Re-education, Patient Education, Safety,Balance Certification: Based on the above findings, I certify that this patient is confined to the home and needs intermittent penitentiary care, physical therapy and/or speech therapy, or continues to need occupational therapy. The patient is under my care, and I have initiated the establishment of the plan of care. The patient will be followed by a physician who will periodically review the plan of care. Time Spent With Patient Time: Total time managing care of this patient today ____ minutes.
--- NOTE | 2023-02-12 11:00 | PM.DS ---
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 ?Patient presented to the emergency room today via EMS as the patient's reported that he appeared to be confused more than usual, reportedly he has had decreased p.o. intake for about a week along with increased coughing and not eating as well as coughing while trying to swallow food although he has not been really hungry and has had a very low p.o. intake for the past 2 weeks.? There is no reports of fever, no shortness of breath at least no more than usual, no nausea, vomiting, diarrhea, abdominal pain, falls or syncope. ? In the ER, it was reported by EMS that the patient's blood pressure was less than 60s systolic, he was given 500 cc of normal saline, on a arrival to the ER his blood pressure was 117/55 with otherwise normal vital signs, his workup was overall unremarkable without a white count, chronic anemia, however his sodium was as low as 117 and there was no evidence of renal dysfunction.? He was not hypoxic, not tachycardic, not tachypneic and had no fever.? His chest x-ray does not show any acute pulmonary disease. ? Given the low sodium, the case had been discussed with Nephrology Dr Barkley who recommended hypertonic saline which was started in the emergency room, this was to be continued at 30 cc an hours with frequent rechecks of sodium levels as well as to stop once he reached 124 then start fluid restriction.? As per ER nurse reports, the patient had initially been significantly confused and they were concerned about his swallow ability.? Subsequent ER evaluation reveals a very coherent and talkative patient will otherwise was asymptomatic.? Patient was admitted to the ICU for further treatment. 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 EMS found him hypotensive with SBP <60, given 500 cc NS and BP 117/55 upon arrival to ED; found to have Na 117. After consultation with Nephrology, 3% NaCl was started in ED and he was admitted to the ICU. He was stepped down to IMC once Na 124. Etiology of his hypo-osmolar hyponatremia was likely HCTZ. He was fluid-restricted and received a few doses of oral sodium chloride as well as a dose of urea and at the time of discharge, his Na was 131. He should discontinue HCTZ and repeat Na on 02/16/23 and follow up with his primary care provider. Lisinopril was also stoppted due to the excess hypotension. His mental status was normal during his hospital course. Time Spent with Patient Time attestation: Total time managing care of this patient today __40__ minutes. Discharge coordination time: Greater than 30 minutes Quality: Safe Use of Opioids Does Pt have an Active Cancer Diagnosis on the Problem List?: No Quality: Stroke Does the patient have a stroke diagnosis?: No Physical Exam Vital Signs: Vital Signs: Last Vital Signs Temp 96.9 F 02/12/23 07:39 Pulse 88 02/12/23 07:39 Resp 20 02/12/23 07:39 BP 155/64 H 02/12/23 07:39 Pulse Ox 94 02/12/23 07:39 O2 Del Method Room Air 02/12/23 07:39 BMI result Body Mass Index 25.5 Gen: in no acute distress HEENT: sclera anicteric, moist mucus membranes Neck: supple Lungs: clear to auscultation bilaterally Heart: regular rate and rhythm, no murmurs Abd: soft, non-tender, non-distended Ext: no edema Skin: warm/well-perfused Neuro: alert, no focal findings Psych: appropriate affect DS: Data Data Completed and Pending Completed studies during hospitalization [Text1]: Laboratory Results WBC 10.4 X10*3/uL (4.8-10.8) 02/09/23 05:14 RBC 4.30 X10*6/uL (4.60-5.80) L 02/09/23 05:14 Hgb 13.4 g/dl (14.0-18.0) L 02/09/23 05:14 Hct 36.8 % (42.0-52.0) L 02/09/23 05:14 MCV 85.6 fL (80.0-98.0) 02/09/23 05:14 MCH 31.2 pg (27.0-33.0) 02/09/23 05:14 MCHC 36.4 g/dl (31.0-36.0) H 02/09/23 05:14 RDW 12.4 % (11.0-16.0) 02/09/23 05:14 Plt Count 247 X10*3/uL (160-400) 02/09/23 05:14 MPV 9.4 fL (9.4-12.4) 02/09/23 05:14 Immature Gran % (Auto) 0.4 % (0.0-0.4) 02/09/23 05:14 Neut % (Auto) 70.5 % (45-73) 02/09/23 05:14 Lymph % (Auto) 11.2 % (20-40) L 02/09/23 05:14 [place] % (Auto) 14.2 % (2-11) H 02/09/23 05:14 Eos % (Auto) 3.2 % (0-4) 02/09/23 05:14 Baso % (Auto) 0.5 % (0-2) 02/09/23 05:14 Lymph # (Auto) 1.2 X10*3/uL (1.2-4.9) 02/09/23 05:14 [place] # (Auto) 1.5 X10*3/uL (0.1-1.2) H 02/09/23 05:14 Eos # (Auto) 0.3 X10*3/uL (0.0-0.4) 02/09/23 05:14 Baso # (Auto) 0.1 X10*3/uL (0.0-0.2) 02/09/23 05:14 Abs Immat Gran (auto) 0.04 X10*3/uL (0.00-0.03) H 02/09/23 05:14 Absolute Neuts (auto) 7.3 x10*3/uL (2.0-8.3) 02/09/23 05:14 Absolute Nucleated RBC 0.000 X10*3/uL (0.0-0.012) 02/09/23 05:14 Nucleated RBC % (auto) 0.0 /100WBC (0.0-0.2) 02/09/23 05:14 PT 13.2 SEC (10.0-13.1) H 02/08/23 15:29 INR 1.1 (0.9-1.1) 02/08/23 15:29 VBG pH 7.35 (7.32-7.43) 02/08/23 15:34 VBG pCO2 44 mmHg 02/08/23 15:34 VBG pO2 38 mmHg 02/08/23 15:34 VBG HCO3 25 mmol/L (22-26) 02/08/23 15:34 VBG O2 Saturation 55.0 % 02/08/23 15:34 VBG Base Excess -0.5 mmol/L 02/08/23 15:34 Sodium 131 mmol/L (135-145) L 02/12/23 07:57 Potassium 4.2 mmol/L (3.3-5.1) 02/12/23 07:57 Chloride 100 mmol/L (96-108) 02/12/23 07:57 Carbon Dioxide 24 mmol/L (22-29) 02/12/23 07:57 Anion Gap 11 (12-20) L 02/12/23 07:57 BUN 16 mg/dL (9-16) 02/12/23 07:57 Creatinine 0.85 mg/dL (0.5-1.4) 02/12/23 07:57 Estim Creat Clear Calc 63.5 02/12/23 07:57 Estimated GFR > 60 02/12/23 07:57 Random Glucose 99 mg/dL (60-115) 02/12/23 07:57 Osmolality 268 mosm/kg (281-305) L 02/11/23 15:14 Lactic Acid 0.9 mmol/L (0.5-2.0) 02/08/23 15:29 Calcium 8.9 mg/dL (8.4-10.2) 02/12/23 07:57 Total Bilirubin 0.8 mg/dL (0.0-1.0) 02/09/23 05:15 Direct Bilirubin 0.4 mg/dL (0.0-0.5) 02/08/23 15:31 AST 48 U/L (5-37) H 02/09/23 05:15 ALT 36 U/L (0-40) 02/09/23 05:15 Alkaline Phosphatase 121 U/L (39-117) H 02/09/23 05:15 Troponin I High Sens 9.7 ng/L (<3.5-35.0) 02/08/23 15:31 B-Natriuretic Peptide 92 pg/mL (<100) 02/08/23 15:31 Total Protein 6.4 g/dL (6.5-8.0) L 02/09/23 05:15 Albumin 3.6 g/dL (3.5-5.0) 02/09/23 05:15 TSH 0.41 uIU/mL (0.32-4.0) 02/09/23 08:16 Random Cortisol 19.3 ug/dL 02/09/23 08:16 Urine Color Yellow 02/08/23 16:53 Urine Appearance Clear 02/08/23 16:53 Urine pH 6.5 (5.0-9.0) 02/08/23 16:53 Ur Specific [place] <= 1.005 (1.005-1.025) 02/08/23 16:53 Urine Protein Negative mg/dL (Neg-Trace) 02/08/23 16:53 Urine Glucose (UA) Negative mg/dL (Negative) 02/08/23 16:53 Urine Ketones Negative mg/dL (Negative) 02/08/23 16:53 Urine Blood Negative (Negative) 02/08/23 16:53 Urine Nitrite Negative (Negative) 02/08/23 16:53 Ur Leukocyte Esterase Negative (Negative) 02/08/23 16:53 Urine Osmolality 520 mosm/kg (373-1093) 02/11/23 15:40 Ur Random Sodium 46.0 mmol/L 02/08/23 16:53 Urine Creatinine 142.84 mg/dL 02/11/23 15:40 COVID-19 (HUGO) Negative (Negative) 02/08/23 15:31 COVID-19 Clin Com See Note 02/08/23 15:31 Impressions Chest X-Ray 02/08/23 15:46 IMPRESSION: 1. Streaky left basilar opacities likely reflecting atelectasis or scar. 2. Similar calcific density overlying the left lateral lower chest wall. Discharge Plan Discharge Anticipated Discharge Date/Time: 02/12/23 10:54 Patient Disposition: Home Health Service Discharge Diagnosis: Hyponatremia Hypotension Referrals: Alejandra Howell, [employer]PPLY CHAIN DIRECTOR [Nurse Practitioner] - 1 Week Physician,Unknown J [Primary Care Provider] - 1 Week Discharge Medications: Continued tamsulosin 0.4 mg Capsule 0.4 mg PO BEDTIME atorvastatin 80 mg Tablet 80 mg PO BEDTIME aspirin 81 mg tablet,delayed release (DR/EC) 81 mg PO BEDTIME latanoprost 0.005 % Drops 1 drp OPHTHALMIC (EYE) BEDTIME isosorbide mononitrate 30 mg Tablet Extended Release 24 Hr 30 mg PO DAILY levetiracetam 250 mg Tablet 250 mg PO BEDTIME metoprolol succinate 25 mg tablet extended release 24 hr 25 mg PO DAILY Discontinued lisinopril 5 mg tablet 5 mg PO DAILY Qty: 30 5RF hydrochlorothiazide 25 mg Tablet 25 mg PO DAILY Discharge Orders: Discharge Order (Routine); Ordered 02/12/23 Ordered By: Iftikhar Vásquez Diet: Advance to usual diet Activity on Discharge: As tolerated Stand Alone Forms: Patient Portal Discharge page Other Ambulatory Orders: Basic Metabolic Panel (Routine) Timeframe: [id number] Facility: [facility] - Location: Laboratory Ordered By: Iftikhar Vásquez Care Plan Goals: normal sodium balanne between hypertension and hypotension Health Concerns: hyponatremia due to HCTZ Plan of Treatment: stop hydrochlorothiazide also stop lisinopril continue Imdur and metoprolol succinate recheck lab [BMP] 02/16/23 Please follow up with your primary care doctor within 1 week. Return to the hospital if you experience recurrent or worsening symptoms. Assessment: See Discharge Summary.
[2023-02-12 11:12] VITALS: BP 122/56; PULSE 86; RESP 20; TEMP 36.7; O2SAT 96
--- NOTE | 2023-02-12 12:02 | MHC.CM.PN ---
EMR reviewed and per MD rounds, pt is medically cleared for discharge home with family support. Pts will transport. Pt is declining vna services at this time, MD updated.
--- NOTE | 2023-02-13 15:22 | CONS_ITS ---
DATE OF SERVICE: 02/09/2023 REASON FOR CONSULTATION: Consult requested by the medical team to evaluate and help in management of patient with hyponatremia, who was corrected rapidly. HISTORY OF PRESENT ILLNESS: The patient is an 83-year-old male with past medical history of coronary artery disease, history of hypertension, syncope, low back pain. History of CVA with residual deficit, BPH, arthritis, who presents to the emergency room via EMS. The patient's reports that he has had confusion more than usual. He had decreased p.o. intake for about a week along with increasing coughing, not eating much. There is no fever, shortness of breath, nausea, vomiting, diarrhea, abdominal pain, falls, or syncope. In the ER, the patient's blood pressure was in the low 60s. He was given 500 cc of normal saline. Blood pressure improved. Sodium level went down to 117. His renal function was normal. He was not hypoxemic or tachycardic. Case was discussed with Dr. Barkley who recommended hypertonic saline, which was started in the ER. His sodium level increased to 127 and hence renal consultation is requested. I recommended D5 water at 125 mL/h over the phone, and I also recommended 1 dose of DDAVP 2 mcg. This is given to the patient. His present sodium was improved around 128. REVIEW OF SYSTEMS: Unobtainable because of patient's mental confusion. PAST MEDICAL HISTORY: History of near-syncope, ischemic cardiomyopathy, COPD, decreased hearing, hyperlipidemia, chronic low back pain, history of prior CVA. PAST SURGICAL HISTORY: Right foot surgery, lumbar fusion, cardiac cath and right CVA. FAMILY HISTORY: Noncontributory, is unavailable. PERSONAL AND SOCIAL HISTORY: Patient lives at home. Smoked 30 packs year of smoking, quit in 2016. No alcohol or drug use. ALLERGIES: PATIENT HAS NO KNOWN DRUG ALLERGIES. HOME MEDICATIONS: Aspirin, atorvastatin, hydrochlorothiazide, isosorbide mononitrate, eyedrops, lisinopril, metoprolol succinate. PHYSICAL EXAMINATION: GENERAL: Patient is resting in the bed. Not a very good historian. VITAL SIGNS: Blood pressure was 149/59, pulse 67, afebrile. HEENT AND NECK: Pupils equal, round, and reactive bilaterally to light. No jugular venous distention is noted. Neck is supple. CARDIOVASCULAR SYSTEM: S1, S2 without rub. RESPIRATORY SYSTEM: Mild decreased in the bases. No crepitation or rhonchi is noted. ABDOMEN: Soft, nontender. No guarding noted. Bowel sounds normal. EXTREMITIES: Showed no edema. NEURO: Patient is alert, and able to follow simple commands. There is no focal deficit. LABORATORY DATA: Recently, hemoglobin 13.4, hematocrit 36, WBC 10.4, platelets 247. Sodium 128 earlier today. Most recent sodium level was 127. The lowest sodium on this patient was 117. Baseline sodium is around 139. Renal function; creatinine was 0.96, glucose was 89, calcium was normal. Potassium level was 3.6. TSH 0.41, random cortisol 19.3. Serum osmolality was 253. Urine specific gravity less than 1.005. Urine osmolality was 235. Urine sodium was 46. IMPRESSION: 1. Elderly male with hyponatremia. The patient clinically at the present time looks hypovolemic. He has hypo-osmolar hyponatremia. He was on hydrochlorothiazide which could have worsened this hyponatremia. Given low urine osmolality, the possibility of getting excessive water intake is also in the differential diagnosis. Cortisol level and TSH levels were within normal limits. 2. Rapid correction of hyponatremia of about 1 mEq/hour. 3. Metabolic encephalopathy is improved with correction of hyponatremia. RECOMMENDATION: At this juncture, I agree with discontinuation of hydrochlorothiazide. He needs to be on a fluid restriction of 1.5 L. As mentioned before, given rapid correction, I advised repeating the D5 water at 150 mL/h times 1 L. I also recommend giving DDAVP, which has already being given to the patient, 2 mcg IV push. I would recommend checking serum sodium every 3 hourly x4. I do not think he requires any other IV fluids at this juncture. We will continue to follow the patient with you closely. Avoid hydrochlorothiazide if needed in the future. Thank you for allowing me to participate in medical management. MD MADIE Blum/ABEL / [phone]
== END 2023-02-12 12:50 | disposition home health service (06) | DRG 640 ==
LOC: HO.ED 15:39 → HO.EDOVER 22:28 → HO.ICU 23:20 → HO.IMC 02-09 07:38
PROVIDERS: Internal Medicine; Admitting Provider Physician Assistant Medical; Emergency Provider Emergency Medicine; Visit Provider Family Medicine
DX: E87.1 Hypo-osmolality and hyponatremia (principal); G93.41 Metabolic encephalopathy; R62.7 Adult failure to thrive; Z68.26 Body mass index [BMI] 26.0-26.9, adult; E88.09 Other disorders of plasma-protein metabolism, not elsewhere classified; G40.909 Epilepsy, unspecified, not intractable, without status epilepticus; I25.5 Ischemic cardiomyopathy; Z86.73 Personal history of transient ischemic attack (TIA), and cerebral infarction without residual deficits; I95.9 Hypotension, unspecified; I25.10 Atherosclerotic heart disease of native coronary artery without angina pectoris; E78.5 Hyperlipidemia, unspecified; Z20.822 Contact with and (suspected) exposure to COVID-19; Z95.5 Presence of coronary angioplasty implant and graft; Z87.891 Personal history of nicotine dependence; Z79.82 Long term (current) use of aspirin; Z79.899 Other long term (current) drug therapy
CPT/HCPCS: 36415; 71045; 80048; 80053; 80076; 81003; 82533; 82803; 83605; 83880; 83930; 83935; 84295; 84300; 84443; 84484; 85025; 85610; 87040; 87635; 92610; 93005; 94640; 97162; 99285; J1650; J2597; J7131

== ENCOUNTER → 2023-02-08 22:20 | Outpatient (BNV) | payer MEDICARE, SELFPAY | PROVIDERS: Admitting Provider Physician Assistant Medical; Emergency Provider Emergency Medicine; Visit Provider Family Medicine | DX: E87.1 Hypo-osmolality and hyponatremia (principal); G93.41 Metabolic encephalopathy; I95.9 Hypotension, unspecified | CPT/HCPCS: 99232; 99239; G0180 ==

== ENCOUNTER 2023-03-15 12:14 | Outpatient (AMB) | payer OTHER, SELFPAY ==
[2023-03-15 12:29] VITALS: BP 134/58; PULSE 70; BMI 25.3
--- NOTE | 2023-03-15 12:29 | A.OFFVIS_ITS ---
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 To recall, originally seen for a syncopal episode, but also had another hospitalization for right-sided hemiparesis. Then detected to have significant carotid disease. He also underwent cardiac workup including cardiac catheterization that showed significant CAD. Underwent circumflex stenting. Then also underwent right carotid endarterectomy. Recently, it seems that he was admitted to the hospital hyponatremia. He thinks it was because of a low-sodium diet but not sure. Prior to that, apparently was also on hydrochlorothiazide which was stopped. Then discharged. Overall, doing fine. No complaints like angina or shortness of breath or in fact anything cardiac sounding. Walks with a walker. [facility] Medical History Abnormal echocardiogram Ambulates with cane Arthritis BPH (benign prostatic hyperplasia) Cerebrovascular accident COPD (chronic obstructive pulmonary disease) COVID-19 vaccine series completed CVA (cerebrovascular accident) GUEVARA (dyspnea on exertion) Essential hypertension Hard of hearing History of acute inferior wall myocardial infarction History of smoking at least 1 pack per day for at least 30 years Hyperlipidemia Ischemic cardiomyopathy Low back pain Nasal congestion Near syncope 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 Right bundle branch block Surgical History H/O foot surgery H/O heart artery stent Previous back surgery S/P cardiac catheterization S/P carotid endarterectomy (07/18/21) Family History Other CAD (coronary artery disease) Social History Household Members: Spouse Housing: House Are you a primary physician assistant primary care to a significant other at home: No Do you presently have visiting nurse or other home services: No Alcohol intake: former Patient Tobacco Use Status: Former Tobacco user Quit Date: 2015 Tobacco use type: Cigarette Cigarette Packs Per Day: 1 Cigarettes Per Day: 20.0 Years Smoked: 30 e-Cigarette/Vaping Use: Never Used Second Hand Smoke Exposure: No Advance Directives Date on File: 07/18/21 service: Yes Current occupational status: retired Review of Systems Const Denies weakness ENT Denies dizziness Card Denies chest pain, Denies chest pain with activity, Denies syncope, Denies rapid heart rate, Denies pedal edema, Denies edema, Denies leg edema, Denies lightheadedness, Denies palpitations, Denies dyspnea, Denies dyspnea on exertion and Denies orthopnea Resp Denies cough, Denies dyspnea and Denies dyspnea on exertion GI Denies hematochezia and Denies change in stool character Musc Denies abnormal gait, Denies muscle cramps, Denies muscle weakness, Denies numbness, Denies radiating pain into limb and Denies tingling Neuro Denies abnormal gait, Denies dizziness, Denies syncope, Denies numbness, Denies tingling and Denies weakness Endo Denies palpitations Physical Exam Vital Signs: Last Vital Signs Pulse 70 03/15/23 12:29 BP 134/58 L 03/15/23 12:29 BMI result Body Mass Index 25.3 Const General: comfortable and no acute distress Orientation/consciousness: patient oriented x3 HEENT Other: Unremarkable Head: Yes normal to inspection Neck Neck: Yes normal visual inspection Chest Chest palpation & inspection: normal inspection of the chest Resp Auscultation: rhonchi Cardio Palpation: normal PMI Heart sounds: S1 normal heart sound present, S2 normal heart sound present, no gallops, no murmurs and no rubs GI Palpation (GI): Soft to palpation Back/Spine/Pelvis Other: unremarkable Skin General skin exam: no rashes or lesions noted Neuro General: patient oriented x3 Extrem General: Yes normal to inspection Psych Mental Status: mental status grossly normal Assessment & Plan Assessment & Plan (1) Atherosclerotic cardiovascular disease: Code(s): I25.10 - Atherosclerotic heart disease of [place] coronary artery without angina pectoris Plan: Cardiac catheterization data reviewed (11/2020). He had ostial occlusion of right coronary artery. Moderate mid LAD disease. Severe mid circumflex and OM1 stenosis with [id number] collaterals to RCA. Status post drug-eluting stent to the mid circumflex. Continue aspirin, long-acting nitrates, beta-blockers, statins. Last LDL 90 mg/dL. [facility] (2) Ischemic cardiomyopathy: Code(s): I25.5 - Ischemic cardiomyopathy Plan: In the last echocardiogram, LVEF 35-40%. Wall motion abnormalities related to underlying CAD. Clinically, does not have any congestive heart failure. He remains on metoprolol succinate. He was also on lisinopril that was stopped during hospitalization. He is due for labs today and he already has request. If no significant electrolyte abnormalities, then may resume. (3) Stenosis of right internal carotid artery: Comment: 07/18/2021 right carotid endarterectomy Code(s): I65.21 - Occlusion and stenosis of right carotid artery Plan: Status post right carotid endarterectomy-07/2021. He follows up with vascular surgery as well. Plan Discussed with who came for appointment Orders: Orders Basic Metabolic Panel 02/16/23 E87.1 - Hypo-osmolality and hyponatremia Coding Level of Care Code Est Pt Level 4 (53846) Diagnoses Atherosclerotic cardiovascular disease I25.10 Ischemic cardiomyopathy I25.5 Stenosis of right internal carotid artery I65.21
== END 2023-03-15 12:53 | disposition home or self-care (01) ==
PROVIDERS: Visit Provider Internal Medicine
DX: I25.10 Atherosclerotic heart disease of native coronary artery without angina pectoris (principal); I25.5 Ischemic cardiomyopathy; I65.21 Occlusion and stenosis of right carotid artery
CPT/HCPCS: 99214

== ENCOUNTER 2023-03-15 12:14 | Outpatient (REF) | payer OTHER, SELFPAY ==
[2023-03-15 16:05] LABS: Cholesterol 94 mg/dL; HDL Cholesterol 29 mg/dL; LDL Cholesterol Calculated 54 mg/dl; Triglycerides 56 mg/dL
[2023-03-16 09:29] LABS: Anion Gap 12 (12-20); Blood Urea Nitrogen 8 mg/dL (9-16); Calcium 8.5 mg/dL (8.4-10.2); Carbon Dioxide 23 mmol/L (22-29); Chloride 106 mmol/L (96-108); Estimated Glomerular Filt Rate > 60; Glucose Random 82 mg/dL (60-115); Potassium 4.3 mmol/L (3.3-5.1); Sodium 137 mmol/L (135-145)
== END 2023-03-15 12:15 | disposition home or self-care (01) ==
LOC: HO.LAB 12:14
PROVIDERS: PCP Internal Medicine; Visit Provider Internal Medicine
DX: I25.10 Atherosclerotic heart disease of native coronary artery without angina pectoris (principal); E78.5 Hyperlipidemia, unspecified; E87.1 Hypo-osmolality and hyponatremia; I25.5 Ischemic cardiomyopathy; I65.21 Occlusion and stenosis of right carotid artery
CPT/HCPCS: 36415; 80048; 80061; 99212

== ENCOUNTER 2023-05-24 11:17 | Outpatient (REF) | payer OTHER, SELFPAY ==
--- NOTE | ~2023-05-24 | US_ITS ---
EXAMINATION: US EXTRACRANIAL CAROTID DUPLEX, BILATERAL CLINICAL INFORMATION: Carotid stenosis follow-up. COMPARISON: Carotid ultrasound 06/27/2022. TECHNIQUE: Real-time ultrasound and Doppler techniques (integrating B-mode 2-D vascular images, Doppler spectral analysis and color-flow Doppler imaging) were utilized to interrogate the extracranial carotid arteries, the vertebral arteries and proximal subclavian arteries bilaterally. The degree of stenosis is determined by criteria similar to NASCET. FINDINGS: Right Side: 1. There is mild atherosclerotic plaque seen in the bifurcation/proximal ICA region. 2. The common carotid artery PSV proximally is 47 cm/s and distally 25 cm/s. 3. The proximal internal carotid artery velocities are 64 cm/s systolic and 14 cm/s diastolic. 4. The proximal external carotid artery PSV is 664 cm/s. 5. The vertebral artery shows antegrade flow. 6. The subclavian artery waveforms are normal. Left Side: 1. There is moderate atherosclerotic plaque seen in the bifurcation/proximal ICA region. 2. The common carotid artery PSV proximally is 112 cm/s and distally 90 cm/s. 3. The proximal internal carotid artery velocities are 153 cm/s systolic and 31 cm/s diastolic. 4. The proximal external carotid artery PSV is 314 cm/s. 5. The vertebral artery shows antegrade flow. 6. The subclavian artery waveforms are normal. An arrhythmia is noted. US/US carotid duplex BI IMPRESSION: 1. RIGHT: Endarterectomy. Mild plaque. No hemodynamically significant stenosis. 2. LEFT: Moderate, hemodynamically significant stenosis of the proximal left internal carotid artery corresponding to a 50-79% stenosis by velocity criteria. 3. There is no change in the category severity of disease when compared to the previous study dated 06/27/2022.
== END 2023-05-24 11:18 | disposition home or self-care (01) ==
LOC: HO.US 11:17
PROVIDERS: PCP Internal Medicine; Visit Provider Surgery Vascular Surgery
DX: I65.23 Occlusion and stenosis of bilateral carotid arteries (principal)
CPT/HCPCS: 93880

== ENCOUNTER 2023-07-10 10:48 | Outpatient (AMB) | payer OTHER, SELFPAY ==
[2023-07-10 10:47] VITALS: BP 150/78; BMI 25.2
--- NOTE | 2023-07-10 10:47 | A.OFFVIS_ITS ---
Intake Vital Signs 07/10/23 10:47 07/10/23 10:57 Height 5 ft 9 in Weight 171 lb BMI 25.2 BP 150/78 H 154/76 H Blood Pressure Location Lt brachial Rt brachial Position Sitting Sitting Intake Visit Reasons: Follow up US Intake Note: 1 year follow up carotid US 05/24/2023. NO complaints, no blurred vision other than issues due to cataracts and weak legs. Pt states he does have tight muscles and has difficulty going uphill. Hx of Right CEA 07/18/21 Accompanied by: Self / Same As Patient Allergies bee pollen [bee stings] Allergy (Severe, Verified 07/10/23 10:53) Anaphylaxis HPI Follow up US HPI Details Very pleasant 83-year-old gentleman presents for follow-up regarding carotid stenosis. He had undergone right carotid endarterectomy with me nearly 2 years ago. He reports no interval issues. He is doing fairly well. Now presents for follow-up with noninvasive testing. He remains clinically asymptomatic and denies any lateralizing signs or symptoms visual disturbances and or speech difficulty. [facility] Medical History 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 CVA (cerebrovascular accident) COPD (chronic obstructive pulmonary disease) History of smoking at least 1 pack per day for at least 30 years Ischemic cardiomyopathy COVID-19 vaccine series completed Nasal congestion GUEVARA (dyspnea on exertion) Ambulates with cane Low back pain Hard of hearing Arthritis Right bundle branch block History of acute inferior wall myocardial infarction Cerebrovascular accident Abnormal echocardiogram Essential hypertension Near syncope BPH (benign prostatic hyperplasia) Hyperlipidemia Surgical History S/P carotid endarterectomy (07/18/21) H/O heart artery stent S/P cardiac catheterization H/O foot surgery Previous back surgery Family History Other CAD (coronary artery disease) Social History Household Members: Spouse Housing: House Are you a primary cardiac care unit nurse to a significant other at home: No Do you presently have visiting nurse or other home services: No Alcohol intake: former Comment: aware of trip hazard Patient Tobacco Use Status: Former Tobacco user Quit Date: 2015 Tobacco use type: Cigarette Cigarette Packs Per Day: 1 Cigarettes Per Day: 20.0 Years Smoked: 30 e-Cigarette/Vaping Use: Never Used Second Hand Smoke Exposure: No Advance Directives Date on File: 07/18/21 service: Yes Current occupational status: retired Review of Systems Const All systems reviewed & are unremarkable except as noted in HPI and below Reports no additional complaints ENT Reports Normal hearing present Card Denies chest pain, Denies chest pain at rest, Denies chest pain with activity and Denies pedal edema Resp Denies cough GI Denies abdominal pain Musc Denies abnormal gait, Denies muscle cramps and Denies radiating pain into limb Skin/Breast Denies skin ulcer and Denies wounds Neuro Reports Normal hearing present and Denies abnormal gait Psych Reports no additional complaints Physical Exam Vital Signs: Last Vital Signs BP 154/76 H 07/10/23 10:57 BMI result Body Mass Index 25.2 Const General: cooperative, healthy appearing and comfortable Orientation/consciousness: oriented to person, oriented to place and oriented to time HEENT Head: Yes normal to inspection Neck Neck: Yes normal visual inspection Carotids: no bruits Chest Chest palpation & inspection: normal inspection of the chest Resp Effort & Inspection: normal respiratory effort and able to speak in complete sentences Auscultation: clear to auscultation bilaterally, no crackles, no rales, no rhonchi and no wheezes Cardio Rate: regular rate Rhythm: regular rhythm Heart sounds: S1 normal heart sound present and S2 normal heart sound present Bruits: no carotid bruits Peripheral pulses: Peripheral pulses 2+ throughout GI Inspection: Yes normal to inspection Skin Wounds: no wounds Hair: normal Neuro General: oriented to person, oriented to place and oriented to time Cranial nerves: Yes CN's II-XII intact bilaterally and Yes Normal hearing present Cognition (Neuro): normal cognition Motor exam (neuro): 5/5 motor strength present throughout Extrem Other: venous exam: No significant superficial varicosities or spider telangiectasias, minimal edema General: No clubbing, No cyanosis and No edema Psych Appearance: grossly normal Mental Status: mental status grossly normal Speech and movement: Normal speech and movement present Results Reviewed Results Reviewed: Carotid testing dated 05/24/2023 demonstrates carotid stenosis of the right 0-49 left 50-79 with a peak systolic of only 153 indicating that it is closer to the 50% side. Written report and images were reviewed. Assessment & Plan Assessment & Plan (1) Bilateral carotid artery stenosis: Comment: 07/18/2021 - right carotid endarterectomy Code(s): I65.23 - Occlusion and stenosis of bilateral carotid arteries Plan: In short patient has asymptomatic carotid disease. We have reviewed signs and symptoms of a stroke. We also discussed risk factor modification inclusive a healthy diet low in cholesterol. The patient will follow up with us with surveillance ultrasound of the carotids 1 year. Should there be any changes or signs or symptoms of a stroke we will be happy to see them back sooner. Thank you for allowing us to participate in this patient's care. If there are any questions or concerns please do not hesitate to contact us. Orders: Orders US carotid duplex BI 364 Days I65.23 - Occlusion and stenosis of bilateral carotid arteries Coding Level of Care Code Est Pt Level 4 (63323) Diagnoses Bilateral carotid artery stenosis I65.23
[2023-07-10 10:57] VITALS: BP 154/76
== END 2023-07-10 11:17 | disposition home or self-care (01) ==
PROVIDERS: PCP Internal Medicine; Visit Provider Surgery Vascular Surgery
DX: I65.23 Occlusion and stenosis of bilateral carotid arteries (principal)
CPT/HCPCS: 99213

== ENCOUNTER → 2023-07-10 10:48 | Outpatient (BNVA) | payer OTHER, SELFPAY | PROVIDERS: PCP Internal Medicine; Visit Provider Surgery Vascular Surgery | DX: I65.23 Occlusion and stenosis of bilateral carotid arteries (principal); Z98.890 Other specified postprocedural states | CPT/HCPCS: 99212 ==

== ENCOUNTER 2023-10-10 10:10 | Outpatient (AMB) | payer OTHER, SELFPAY ==
--- NOTE | 2023-10-10 10:26 | A.OFFVIS_ITS ---
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 To recall, originally seen for a syncopal episode, but also had another hospitalization for right-sided hemiparesis. Then detected to have significant carotid disease. He also underwent cardiac workup including cardiac cath eterization that showed significant CAD. Underwent circumflex stenting. Then also underwent right carotid endarterectomy. Since last seen, no specific cardiac complaints. No angina or in fact anything of cardiac type. Seems okay. [facility] Medical History 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 CVA (cerebrovascular accident) COPD (chronic obstructive pulmonary disease) History of smoking at least 1 pack per day for at least 30 years Ischemic cardiomyopathy COVID-19 vaccine series completed Nasal congestion GUEVARA (dyspnea on exertion) Ambulates with cane Low back pain Hard of hearing Arthritis Right bundle branch block History of acute inferior wall myocardial infarction Cerebrovascular accident Abnormal echocardiogram Essential hypertension Near syncope BPH (benign prostatic hyperplasia) Hyperlipidemia Surgical History S/P carotid endarterectomy (07/18/21) H/O heart artery stent S/P cardiac catheterization H/O foot surgery Previous back surgery Family History Other CAD (coronary artery disease) Social History Household Members: Spouse Housing: House Are you a primary acute care nursing assistant to a significant other at home: No Do you presently have visiting nurse or other home services: No Alcohol intake: former Comment: aware of trip hazard Patient Tobacco Use Status: Former Tobacco user Quit Date: 2015 Tobacco use type: Cigarette Cigarette Packs Per Day: 1 Cigarettes Per Day: 20.0 Years Smoked: 30 e-Cigarette/Vaping Use: Never Used Second Hand Smoke Exposure: No Advance Directives Date on File: 07/18/21 service: Yes Current occupational status: retired Review of Systems Const Denies weakness ENT Denies dizziness Card Denies chest pain, Denies chest pain with activity, Denies syncope, Denies rapid heart rate, Denies pedal edema, Denies edema, Denies leg edema, Denies lightheadedness, Denies palpitations, Denies dyspnea, Denies dyspnea on exertion and Denies orthopnea Resp Denies cough, Denies dyspnea and Denies dyspnea on exertion GI Denies hematochezia and Denies change in stool character Musc Denies abnormal gait, Denies muscle cramps, Denies muscle weakness, Denies numbness, Denies radiating pain into limb and Denies tingling Neuro Denies abnormal gait, Denies dizziness, Denies syncope, Denies numbness, Denies tingling and Denies weakness Endo Denies palpitations Physical Exam Vital Signs: Last Vital Signs Pulse 62 10/10/23 10:30 BP 110/66 10/10/23 10:30 BMI result Body Mass Index 26.4 Const General: comfortable and no acute distress Orientation/consciousness: patient oriented x3 HEENT Other: Unremarkable Head: Yes normal to inspection Neck Neck: Yes normal visual inspection Chest Chest palpation & inspection: normal inspection of the chest Resp Auscultation: clear to auscultation bilaterally Cardio Palpation: normal PMI Heart sounds: S1 normal heart sound present, S2 normal heart sound present, no gallops, no murmurs and no rubs GI Palpation (GI): Soft to palpation Back/Spine/Pelvis Other: unremarkable Skin General skin exam: no rashes or lesions noted Neuro General: patient oriented x3 Extrem General: Yes normal to inspection Psych Mental Status: mental status grossly normal Assessment & Plan Assessment & Plan (1) Atherosclerotic cardiovascular disease: Code(s): I25.10 - Atherosclerotic heart disease of [place] coronary artery without angina pectoris Plan: Cardiac catheterization data reviewed (11/2020). He had ostial occlusion of right coronary artery. Moderate mid LAD disease. Severe mid circumflex and OM1 stenosis with [id number] collaterals to RCA. Status post drug-eluting stent to the mid circumflex. Continue aspirin, long-acting nitrates, beta-blockers, statins. Last LDL 54 mg/dL. Triglycerides 56 mg/dL. (2) Ischemic cardiomyopathy: Code(s): I25.5 - Ischemic cardiomyopathy Plan: In the last echocardiogram, LVEF 35-40%. Wall motion abnormalities related to underlying CAD. Clinically, does not have any congestive heart failure. He remains on metoprolol/lisinopril. Not on regular diuretics. Clinically, no CHF. (3) Stenosis of right internal carotid artery: Comment: 07/18/2021 right carotid endarterectomy Code(s): I65.21 - Occlusion and stenosis of right carotid artery Plan: Status post right carotid endarterectomy-07/2021. He follows up with vascular surgery as well. Plan Discussed with who came for appointment Coding Level of Care Code Est Pt Level 4 (17426) Diagnoses Atherosclerotic cardiovascular disease I25.10 Ischemic cardiomyopathy I25.5 Stenosis of right internal carotid artery I65.21
[2023-10-10 10:30] VITALS: BP 110/66; PULSE 62; BMI 26.4
== END 2023-10-10 10:40 | disposition home or self-care (01) ==
PROVIDERS: PCP Internal Medicine; Supervising Provider Internal Medicine; Visit Provider Internal Medicine
DX: I25.10 Atherosclerotic heart disease of native coronary artery without angina pectoris (principal); I25.5 Ischemic cardiomyopathy; I65.21 Occlusion and stenosis of right carotid artery
CPT/HCPCS: 99214

== ENCOUNTER → 2023-10-10 10:10 | Outpatient (BNVA) | payer OTHER, SELFPAY | PROVIDERS: PCP Internal Medicine; Visit Provider Internal Medicine | DX: I25.10 Atherosclerotic heart disease of native coronary artery without angina pectoris (principal); I25.5 Ischemic cardiomyopathy; I65.21 Occlusion and stenosis of right carotid artery | CPT/HCPCS: 99212 ==

== ENCOUNTER 2024-03-10 09:56 | Emergency (ER) | payer OTHER, SELFPAY ==
--- NOTE | ~2024-03-10 | XR_ITS ---
EXAMINATION: XR LUMBAR SPINE XR LEFT HIP WITH PELVIS CLINICAL INFORMATION: Patient took a fall, left sided pain radiating down left leg. TECHNIQUE: 3 views of the lumbar spine. AP view of the pelvis and 2 views of the left hip. COMPARISON: X-ray pelvis 12/27/2017 and left hip 02/28/2018. CT left hip 11/29/2017. FINDINGS: LEFT HIP: Evidence of healing of previously identified left femur fracture involving the greater trochanter and upper to mid intertrochanteric region. There is oblique lucency along the lateral aspect of the left femoral neck with surrounding sclerosis/callus which may be related to old fracture, but superimposed more recent fracture should also be considered in the appropriate clinical setting. Diffuse demineralization. Mild degenerative changes in the bilateral hips. Extensive vascular calcifications. Degenerative changes in the bilateral sacroiliac joints. LUMBAR SPINE: Diffuse demineralization. Mild dextroscoliosis of the lumbar spine. Status post posterior fixation at L4-L5 with bilateral pedicular screws and rods. Grade 1 anterolisthesis of L4 and L5 with moderate loss of disc space height and interdisc device. Multilevel lumbar spondylosis with hypertrophic change and loss of disc space height most severe at L2-L3. Extensive atherosclerotic aortoiliac calcifications. XR/XR hip LT w PEL1V IMPRESSION: 1. Evidence of healing of previously identified left femur fracture involving the greater trochanter and upper to mid intertrochanteric region. There is oblique lucency along the lateral aspect of the left femoral neck with surrounding sclerosis/callus which may be related to old fracture, but superimposed more recent fracture should also be considered in the appropriate clinical setting. 2. Status post posterior fixation at L4-L5 with bilateral pedicular screws and rods. Grade 1 anterolisthesis of L4 and L5 with moderate loss of disc space height and interdisc device. 3. Multilevel lumbar spondylosis is most severe at L2-L3. 4. Additional imaging with CT scan or MRI should be considered for further evaluation if there is clinical concern for fracture or other underlying pathology. This study was presented today March 10, 2024 for interpretation. Stat results provided at this time as requested by referring provider.
--- NOTE | ~2024-03-10 | XR_ITS ---
EXAMINATION: XR LUMBAR SPINE XR LEFT HIP WITH PELVIS CLINICAL INFORMATION: Patient took a fall, left sided pain radiating down left leg. TECHNIQUE: 3 views of the lumbar spine. AP view of the pelvis and 2 views of the left hip. COMPARISON: X-ray pelvis 12/27/2017 and left hip 02/28/2018. CT left hip 11/29/2017. FINDINGS: LEFT HIP: Evidence of healing of previously identified left femur fracture involving the greater trochanter and upper to mid intertrochanteric region. There is oblique lucency along the lateral aspect of the left femoral neck with surrounding sclerosis/callus which may be related to old fracture, but superimposed more recent fracture should also be considered in the appropriate clinical setting. Diffuse demineralization. Mild degenerative changes in the bilateral hips. Extensive vascular calcifications. Degenerative changes in the bilateral sacroiliac joints. LUMBAR SPINE: Diffuse demineralization. Mild dextroscoliosis of the lumbar spine. Status post posterior fixation at L4-L5 with bilateral pedicular screws and rods. Grade 1 anterolisthesis of L4 and L5 with moderate loss of disc space height and interdisc device. Multilevel lumbar spondylosis with hypertrophic change and loss of disc space height most severe at L2-L3. Extensive atherosclerotic aortoiliac calcifications. XR/XR lumbar spine 2-3V IMPRESSION: 1. Evidence of healing of previously identified left femur fracture involving the greater trochanter and upper to mid intertrochanteric region. There is oblique lucency along the lateral aspect of the left femoral neck with surrounding sclerosis/callus which may be related to old fracture, but superimposed more recent fracture should also be considered in the appropriate clinical setting. 2. Status post posterior fixation at L4-L5 with bilateral pedicular screws and rods. Grade 1 anterolisthesis of L4 and L5 with moderate loss of disc space height and interdisc device. 3. Multilevel lumbar spondylosis is most severe at L2-L3. 4. Additional imaging with CT scan or MRI should be considered for further evaluation if there is clinical concern for fracture or other underlying pathology. This study was presented today March 10, 2024 for interpretation. Stat results provided at this time as requested by referring provider.
[2024-03-10 09:59] VITALS: BP 143/67; PULSE 70; RESP 17; TEMP 36.4; O2SAT 94; BMI 25.7
--- NOTE | 2024-03-10 10:17 | ED.BACK ---
HPI - Back Pain/Injury General Chief Complaint: Back Pain/Injury Stated Complaint: kidney infection Time Seen by Provider: 03/10/24 10:11 Source: patient Mode of arrival: ambulatory Limitations: no limitations History of Present Illness ED Provider: Cuong Myers PA-C HPI Narrative: 84 yo male with history of COPD, ischemic cardiomyopathy with hx RI s/p stent who presents to the ER for evaluation of left lower back pain that radiates into the left groin for the last 4 days. He reports he had a flare up of this pain a couple of weeks ago but it self-resolved. He states he has pain in his left lower back that radiates to his left hip, left groin and to the left anterior thigh. He denies any recent injury or fall. He states he has had left hip pain for years. He denies any urinary symptoms. His provider at [facility] wanted him to get checked for UTI. He reported diffuse abdominal pain and cramping last night which improved after he had a bowel movement. He denies any current abdominal pain, nausea, vomiting, diarrhea, fever, chills. No numbness or weakness in the leg. No saddle paresthesias. MD elicited complaint: back pain Pertinent past history: prior back pain Onset (ago): day(s) (4) Timing: progressively worsening Severity: moderate Quality: sharp Location: left lower back Radiation: groin, buttocks and left upper leg Exacerbating factors: movement Relieving factors: sitting upright Context: unknown Associated symptoms: denies other symptoms Related Data Home Medications ?Medication ?Instructions ?Recorded ?Confirmed tamsulosin 0.4 mg capsule 0.4 mg PO BEDTIME 06/20/20 10/10/23 metoprolol succinate 25 mg 25 mg PO DAILY 02/10/21 10/10/23 tablet,extended release 24 hr atorvastatin 80 mg tablet 80 mg PO BEDTIME 02/22/21 10/10/23 aspirin 81 mg tablet,delayed 81 mg PO BEDTIME 12/19/21 10/10/23 release isosorbide mononitrate 30 mg 30 mg PO DAILY 12/19/21 10/10/23 tablet,extended release 24 hr latanoprost 0.005 % eye drops 1 drp ophthalmic (eye) BEDTIME 12/19/21 10/10/23 levetiracetam 250 mg tablet 250 mg PO BEDTIME 02/08/23 10/10/23 Previous Rx's ?Medication ?Instructions ?Recorded lisinopril 5 mg tablet 5 mg PO DAILY #30 tabs 03/16/23 Allergies Allergy/AdvReac Type Severity Reaction Status Date / Time bee pollen [bee stings] Allergy Severe Anaphylaxis Verified 03/10/24 10:03 Review of Systems Review of Systems: Yes all other systems are reviewed and are negative [facility] Past Medical History Medical History 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 CVA (cerebrovascular accident) COPD (chronic obstructive pulmonary disease) History of smoking at least 1 pack per day for at least 30 years Ischemic cardiomyopathy COVID-19 vaccine series completed Nasal congestion GUEVARA (dyspnea on exertion) Ambulates with cane Low back pain Hard of hearing Arthritis Right bundle branch block History of acute inferior wall myocardial infarction Cerebrovascular accident Abnormal echocardiogram Essential hypertension Near syncope BPH (benign prostatic hyperplasia) Hyperlipidemia Surgical History S/P carotid endarterectomy (07/18/21) H/O heart artery stent S/P cardiac catheterization H/O foot surgery Previous back surgery Family History Family History Other CAD (coronary artery disease) Social History Social History Household Members: Spouse Housing: House Are you a primary skin care consultant to a significant other at home: No Do you presently have visiting nurse or other home services: No Alcohol intake: former Comment: aware of trip hazard Patient Tobacco Use Status: Former Tobacco user Tobacco use type: Cigarette Cigarette Packs Per Day: 1 Cigarettes Per Day: 20.0 Years Smoked: 30 e-Cigarette/Vaping Use: Never Used Second Hand Smoke Exposure: No Advance Directives: Yes Advance Directives on File: Yes Advance Directives Date on File: 07/18/21 service: Yes Current occupational status: retired Physical Exam Vital Signs: Vital Signs: Last Vital Signs Temp 97.6 F 03/10/24 09:59 Pulse 70 03/10/24 09:59 Resp 17 03/10/24 09:59 BP 143/67 H 03/10/24 09:59 Pulse Ox 94 03/10/24 09:59 O2 Del Method Room Air 03/10/24 09:59 BMI result Body Mass Index 25.7 Appearance: Alert. Oriented X3. No acute distress. Head: normocephalic, atraumatic. Eyes: Pupils equal, round and reactive to light. ENT: Pharynx normal. No tonsillar swelling or exudate. Neck: Normal inspection. Neck supple. CVS: Normal heart rate and rhythm. Pulses normal. Respiratory: No respiratory distress. Breath sounds normal. Abdomen: Soft and nontender. +BS x4 Back: left sided lumbar tenderness, no midline tenderness. limited exam while in the wheelchair Skin: Skin warm and dry. Normal skin color. Normal skin turgor. No rashes. Extremities: No lower extremity edema. No joint swelling. Neuro/psych: Oriented X 3. grossly Medical Decision Making Medical Decision Making [facility] Narrative: 84-year-old male presenting to the ER for evaluation of left lower back pain that radiates to the left buttock and left leg. No trauma. He reports breaking the left hip years ago, did not require surgery at that time. He has had back surgery in the past. Pain has been worsening for the last 4 days. He is not taking any medications for it. No CVA tenderness on examination. His doctor cm to rule out UTI. Urinalysis today is negative for blood or infection. X-ray of his hip and lumbar spine were performed that did not show any acute fractures. He has evidence of a callus which is consistent with his prior fracture. There is no new trauma to suggest any new fracture clinically. His pain is acute on chronic. He is followed at the [facility] as an outpatient. We discussed treatment options for radiculopathy and he will start taking Tylenol for the pain. Stable for discharge home with his with outpatient follow-up. Differential Diagnosis Differential Diagnoses: The differential diagnosis associated with the presentation includes Inflammatory disorders, malignancy, trauma, osteoporosis, nerve root compression, radiculopathy, plexopathy, degenerative disc disease, disc herniation, spinal stenosis, sacroiliac joint dysfunction, UTI, and less likely infection?like abscess or diskitis Admission/Observation Consideration of admission/observation: Escalation of care including admission/observation considered Lab Data [facility] Lab Attestation statement: I reviewed the patient's lab results. Labs: Lab Results 03/10/24 Range/Units 11:22 Urine Color Yellow Urine Appearance Clear Urine pH 6.5 (5.0-9.0) Ur Specific [place] 1.010 (1.005-1.025) Urine Protein Negative (Neg-Trace) mg/dL Urine Glucose (UA) Negative (Negative) mg/dL Urine Ketones Negative (Negative) mg/dL Urine Blood Negative (Negative) Urine Nitrite Negative (Negative) Ur Leukocyte Esterase Negative (Negative) Independent Interpretation I performed an independent interpretation of an: Plain X-Ray Interpretation: No evidence of compression fractures, no acute hip fracture, agree with radiology read Radiology Impression Discussion of test interpretation with radiology: I have reviewed the radiologist's reading. Radiologist Impression: EXAMINATION: XR LUMBAR SPINE XR LEFT HIP WITH PELVIS CLINICAL INFORMATION: Patient took a fall, left sided pain radiating down left leg. TECHNIQUE: 3 views of the lumbar spine. AP view of the pelvis and 2 views of the left hip. COMPARISON: X-ray pelvis 12/27/2017 and left hip 02/28/2018. CT left hip 11/29/2017. FINDINGS: LEFT HIP: Evidence of healing of previously identified left femur fracture involving the greater trochanter and upper to mid intertrochanteric region. There is oblique lucency along the lateral aspect of the left femoral neck with surrounding sclerosis/callus which may be related to old fracture, but superimposed more recent fracture should also be considered in the appropriate clinical setting. Diffuse demineralization. Mild degenerative changes in the bilateral hips. Extensive vascular calcifications. Degenerative changes in the bilateral sacroiliac joints. LUMBAR SPINE: Diffuse demineralization. Mild dextroscoliosis of the lumbar spine. Status post posterior fixation at L4-L5 with bilateral pedicular screws and rods. Grade 1 anterolisthesis of L4 and L5 with moderate loss of disc space height and interdisc device. Multilevel lumbar spondylosis with hypertrophic change and loss of disc space height most severe at L2-L3. Extensive atherosclerotic aortoiliac calcifications. XR/XR hip LT w PEL1V IMPRESSION: 1. Evidence of healing of previously identified left femur fracture involving the greater trochanter and upper to mid intertrochanteric region. There is oblique lucency along the lateral aspect of the left femoral neck with surrounding sclerosis/callus which may be related to old fracture, but superimposed more recent fracture should also be considered in the appropriate clinical setting. 2. Status post posterior fixation at L4-L5 with bilateral pedicular screws and rods. Grade 1 anterolisthesis of L4 and L5 with moderate loss of disc space height and interdisc device. 3. Multilevel lumbar spondylosis is most severe at L2-L3. 4. Additional imaging with CT scan or MRI should be considered for further evaluation if there is clinical concern for fracture or other underlying pathology. Independent Historian Clinical information obtained from an independent historian. History obtained from or confirmed by: Spouse External Record Review External record reviewed: Outpatient record, Prior outpatient labs and Prior outpatient radiology Tests considered The following testing was considered but not selected: CT scan considered, clinically not c/w acute fracture Prescription Management I considered prescription management with: Pain Medication Critical Care Time Critical Care Time Critical Care Time: No Discharge Plan Discharge Clinical Impression: Lumbar radiculopathy Patient Disposition: Home, Self-Care Instructions: Lumbar Radiculopathy (ED) Additional Instructions: Your urine test today was normal. Your x-ray did not show any evidence of acute fractures. You have disc space narrowing in your back which is likely causing a pinched nerve and the pain running down your leg. Take Tylenol 1000 mg every 6-8 hours as needed for pain. Follow-up with your primary care doctor. If you develop new or worsening symptoms call 911 or come back to the ER for further evaluation. Prescriptions: No Action lisinopril 5 mg tablet 5 mg PO DAILY Qty: 30 5RF Rx Instructions: Resume Lisinopril 5mg daily tamsulosin 0.4 mg Capsule 0.4 mg PO BEDTIME atorvastatin 80 mg Tablet 80 mg PO BEDTIME aspirin 81 mg tablet,delayed release (DR/EC) 81 mg PO BEDTIME latanoprost 0.005 % Drops 1 drp OPHTHALMIC (EYE) BEDTIME isosorbide mononitrate 30 mg Tablet Extended Release 24 Hr 30 mg PO DAILY levetiracetam 250 mg Tablet 250 mg PO BEDTIME metoprolol succinate 25 mg tablet extended release 24 hr 25 mg PO DAILY Referrals: Emilee Batres MD [Primary Care Provider] - Print Language: Belarusian
[2024-03-10 11:33] LABS: Appearance Urine Clear; Color Urine Yellow; Glucose Urine UA Negative (Negative); Leukocyte Esterase Urine Negative (Negative); Nitrite Urine Negative (Negative); PH 6.5 (5.0-9.0); Urine Blood Negative (Negative); Urine Ketones Negative (Negative); Urine Protein Negative (Neg-Trace)
[2024-03-10 12:52] VITALS: BP 143/67; PULSE 70; RESP 17; TEMP 36.4; O2SAT 94
== END 2024-03-10 12:52 | disposition home or self-care (01) ==
PROVIDERS: Emergency Provider Emergency Medicine; PCP Internal Medicine
DX: M54.16 Radiculopathy, lumbar region (principal); M54.50 Low back pain, unspecified; Z79.899 Other long term (current) drug therapy
CPT/HCPCS: 72100; 73502; 81003; 99282; 99283

== ENCOUNTER 2024-04-17 10:35 | Outpatient (AMB) | payer OTHER, SELFPAY ==
[2024-04-17 10:42] VITALS: BP 130/60; PULSE 62; BMI 25.3
--- NOTE | 2024-04-17 10:42 | A.OFFVIS_ITS ---
Vital Signs 04/17/24 10:42 Height 5 ft 9 in Weight 171 lb 8.314 oz BMI 25.3 BP 130/60 Blood Pressure Location Lt brachial Position Sitting Pulse 62 Pulse Source Monitor Intake Visit Reasons: 6 mth f/up Subject Scientific Research Required: No Accompanied by: Spouse Allergies bee pollen [bee stings] Allergy (Severe, Verified 03/10/24 10:03) Anaphylaxis Medication List - Last Reconciled 04/17/24 by Christopher Carmona MD aspirin 81 mg PO BEDTIME atorvastatin 80 mg PO BEDTIME isosorbide mononitrate ER 30 mg PO DAILY latanoprost 0.005% 1 drp ophthalmic (eye) BEDTIME levetiracetam 250 mg PO BEDTIME lisinopril 5 mg PO DAILY metoprolol succinate ER 25 mg PO DAILY tamsulosin 0.4 mg PO BEDTIME HPI Comments Details: Mikie returns for follow-up regarding coronary artery disease. To recall, originally seen for a syncopal episode, but also had another hospitalization for right-sided hemiparesis. Then detected to have significant carotid disease. He also underwent cardiac workup including cardiac catheterization that showed significant CAD. Underwent circumflex stenting. Then also underwent right carotid endarterectomy. Overall, frailty from age. Otherwise, doing fine. No cardiac symptoms. [facility] Medical History 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 CVA (cerebrovascular accident) COPD (chronic obstructive pulmonary disease) History of smoking at least 1 pack per day for at least 30 years Ischemic cardiomyopathy COVID-19 vaccine series completed Nasal congestion GUEVARA (dyspnea on exertion) Ambulates with cane Low back pain Hard of hearing Arthritis Right bundle branch block History of acute inferior wall myocardial infarction Cerebrovascular accident Abnormal echocardiogram Essential hypertension Near syncope BPH (benign prostatic hyperplasia) Hyperlipidemia Surgical History S/P carotid endarterectomy (07/18/21) H/O heart artery stent S/P cardiac catheterization H/O foot surgery Previous back surgery Family History Other CAD (coronary artery disease) Social History Household Members: Spouse Housing: House Are you a primary reproductive healthcare assistant to a significant other at home: No Do you presently have visiting nurse or other home services: No Alcohol intake: former Comment: aware of trip hazard Patient Tobacco Use Status: Former Tobacco user Tobacco use type: Cigarette Cigarette Packs Per Day: 1 Cigarettes Per Day: 20.0 Years Smoked: 30 e-Cigarette/Vaping Use: Never Used Second Hand Smoke Exposure: No Advance Directives Date on File: 07/18/21 service: Yes Current occupational status: retired Review of Systems Const Denies chills, Denies fatigue, Denies fever(s), Denies frequent falls, Denies weakness, Denies weight gain and Denies weight loss ENT Denies dizziness Card Denies chest pain, Denies leg edema, Denies lightheadedness, Denies palpitations, Denies dyspnea and Denies dyspnea on exertion Resp Denies cough, Denies dyspnea and Denies dyspnea on exertion GI Denies hematochezia Musc Denies abnormal gait, Denies muscle weakness, Denies numbness, Denies radiating pain into limb and Denies tingling Neuro Denies abnormal gait, Denies dizziness, Denies frequent falls, Denies numbness, Denies tingling and Denies weakness Endo Denies fatigue and Denies palpitations Physical Exam Vital Signs: Last Vital Signs Pulse 62 04/17/24 10:42 BP 130/60 04/17/24 10:42 BMI result Body Mass Index 25.3 Const General: comfortable and no acute distress Orientation/consciousness: patient oriented x3 HEENT Other: Unremarkable Head: Yes normal to inspection Neck Neck: Yes normal visual inspection Chest Chest palpation & inspection: normal inspection of the chest Resp Auscultation: rhonchi Cardio Palpation: normal PMI Heart sounds: S1 normal heart sound present, S2 normal heart sound present, no gallops, no murmurs and no rubs GI Palpation (GI): Soft to palpation Back/Spine/Pelvis Other: unremarkable Skin General skin exam: no rashes or lesions noted Neuro General: patient oriented x3 Extrem General: Yes normal to inspection Psych Mental Status: mental status grossly normal Office Procedures EKG Details: EKG with underlying sinus rhythm at 62/Min; nonspecific intraventricular conduction defect cannot exclude old inferior/lateral infarct. [id number], Complete Assessment & Plan Assessment & Plan (1) Atherosclerotic cardiovascular disease: Code(s): I25.10 - Atherosclerotic heart disease of [place] coronary artery without angina pectoris Category: Medical Plan: Cardiac catheterization data reviewed (11/2020). He had ostial occlusion of right coronary artery. Moderate mid LAD disease. Severe mid circumflex and OM1 stenosis with [id number] collaterals to RCA. Status post drug-eluting stent to the mid circumflex. Continue aspirin, long-acting nitrates, beta-blockers, statins. Last LDL 54 mg/dL. Triglycerides 56 mg/dL. (2) Ischemic cardiomyopathy: Code(s): I25.5 - Ischemic cardiomyopathy Category: Medical Plan: In the last echocardiogram, LVEF 35-40%. Wall motion abnormalities related to underlying CAD. Clinically, does not have any congestive heart failure. He remains on metoprolol/lisinopril. Not on regular diuretics. Clinically, no CHF. We can recheck cardiac function before his next visit. (3) Stenosis of right internal carotid artery: Comment: 07/18/2021 right carotid endarterectomy Code(s): I65.21 - Occlusion and stenosis of right carotid artery Category: Medical Plan: Status post right carotid endarterectomy-07/2021. Regularly follows up with vascular surgery. Otherwise, aggressive risk factor modification. Plan Discussed with who came for appointment Orders: Orders CA echo transthoracic complete 6 Months I25.5 - Ischemic cardiomyopathy Coding Level of Care Code Est Pt Level 4 (57726) Diagnoses Atherosclerotic cardiovascular disease I25.10 Ischemic cardiomyopathy I25.5 Stenosis of right internal carotid artery I65.21 CPT Codes EKG - CPT: 04442-[id number], Complete ([id number])
== END 2024-04-17 11:05 | disposition home or self-care (01) ==
PROVIDERS: PCP Internal Medicine; Visit Provider Internal Medicine
DX: I25.10 Atherosclerotic heart disease of native coronary artery without angina pectoris (principal); I25.5 Ischemic cardiomyopathy; I65.21 Occlusion and stenosis of right carotid artery
CPT/HCPCS: 93010; 99214

== ENCOUNTER → 2024-04-17 10:35 | Outpatient (BNVA) | payer OTHER, SELFPAY | PROVIDERS: PCP Internal Medicine; Visit Provider Internal Medicine | DX: I25.10 Atherosclerotic heart disease of native coronary artery without angina pectoris (principal); I25.5 Ischemic cardiomyopathy; I65.21 Occlusion and stenosis of right carotid artery | CPT/HCPCS: 93005; 99212 ==

== ENCOUNTER 2024-06-11 08:48 | Emergency (ER) | payer OTHER, SELFPAY ==
--- NOTE | ~2024-06-11 | XR_ITS ---
EXAMINATION: XR KNEE, LEFT CLINICAL INFORMATION: Status post fall. COMPARISON: X-ray dated February 04, 2023 TECHNIQUE: Four views of the left knee. FINDINGS: No acute cortical disruption or malalignment. Exostosis at the patella tendon insertion and quadriceps tendon insertion. No lytic or blastic lesions. Exostosis in the medial aspect proximal diaphysis of the tibia. Vascular calcifications. No joint effusion, suprapatellar bursa. XR/XR knee LT 3V IMPRESSION: No acute fracture or dislocation. Stable. Electronically signed by: Shoaib Collier MD 06/11/2024 11:41 AM [facility]
--- NOTE | ~2024-06-11 | XR_ITS ---
EXAMINATION: XR CHEST CLINICAL INFORMATION: weakness COMPARISON: X-ray dated February 08, 2023 TECHNIQUE: Frontal view of the chest was obtained. FINDINGS: Prominence of the interstitial markings. No consolidation, pleural effusion or pneumothorax. Cardiomediastinal silhouette is normal in size. Calcified plaque aortic arch. Multilevel thoracic spondylosis. Degenerative changes in the shoulders. XR/XR chest 1V IMPRESSION: Consider chronic interstitial lung disease. Electronically signed by: Shoaib Collier MD 06/11/2024 12:10 PM [facility]
--- NOTE | ~2024-06-11 | CT_ITS ---
EXAMINATION: CT HEAD WITHOUT CONTRAST CLINICAL INFORMATION: fall, pain COMPARISON: CT dated February 04, 2023 TECHNIQUE: Contiguous axial imaging was performed from the skull base to vertex without intravenous administration of contrast. This CT examination was performed using dose optimization techniques as appropriate, variously including the following: *Automated exposure control *Adjustment of mA and/or kV according to patient size (this includes techniques or standardized protocols for targeted exams where dose is matched to indication/reason for exam; i.e. extremities or head) *Use of iterative reconstruction technique DLP: 767 mGy-cm FINDINGS: Prominence of the extra-axial CSF spaces along the hemicranial convexities measuring less than 7 mm. No acute intracranial hemorrhage, mass effect, midline shift, hydrocephalus or herniation. Lynch-white matter differentiation is normal. Bilateral multifocal patchy deep periventricular white matter hypodensities. Old lacunar infarcts in the basal ganglia. Calcified plaques in the cavernous supracavernous segment both ICA and the V4 segments of the vertebral arteries. Bony calvarium is intact. No air-fluid levels in the included paranasal sinuses. Tympanic cavities and mastoid air cells are aerated CT/CT head/brain wo IV con IMPRESSION: No acute intracranial hemorrhage. Small vessel occlusive disease. 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 Subacute to chronic subdural hemorrhages cannot be excluded. Electronically signed by: Shoaib Collier MD 06/11/2024 10:30 AM [facility]
--- NOTE | ~2024-06-11 | CT_ITS ---
EXAMINATION: CT CERVICAL SPINE WITHOUT CONTRAST CLINICAL INFORMATION: Fall. Pain COMPARISON: None available. TECHNIQUE: Thin section axial imaging with sagittal and coronal reformats. This CT examination was performed using dose optimization techniques as appropriate, variously including the following: *Automated exposure control *Adjustment of mA and/or kV according to patient size (this includes techniques or standardized protocols for targeted exams where dose is matched to indication/reason for exam; i.e. extremities or head) *Use of iterative reconstruction technique DLP: 422 mGy-cm FINDINGS: There is advanced disc space narrowing throughout the C-spine with posterior spurring and anterior spondylitic change but no fracture or destructive process or encroachment on the spinal canal. Findings appear most apparent at the C6-7 level. The prevertebral soft tissues are normal. CT/CT cervical spine wo IV con IMPRESSION: Multilevel degenerative change. No fracture. Fleischner guidelines were followed. Electronically signed by: Taco Lynne MD 06/11/2024 10:53 AM [facility]
--- NOTE | ~2024-06-11 | XR_ITS ---
EXAMINATION: XR KNEE, RIGHT CLINICAL INFORMATION: Status post fall. COMPARISON: X-ray dated June 20, 2020 TECHNIQUE: Four views of the right knee. FINDINGS: No acute cortical disruption or malalignment. No joint effusion, suprapatellar bursa. Vascular calcifications. Exostosis at the quadriceps tendon and patellar tendon insertions. Focal well-corticated calcification at the patella tendon insertion into the tibia tuberosity. XR/XR knee RT 3V IMPRESSION: No acute fracture or dislocation. Stable. Electronically signed by: Shoaib Collier MD 06/11/2024 12:00 PM [facility]
--- NOTE | ~2024-06-11 | US_ITS ---
EXAMINATION: US TRIPLEX LOWER EXTREMITY, BILATERAL CLINICAL INFORMATION: Lower extremity pain and swelling. COMPARISON: None available. TECHNIQUE: Color-flow triplex imaging with spectral analysis and compression Doppler were performed on the bilateral lower extremities. FINDINGS: Respiratory variation, normal compression and augmented flow are noted throughout the bilateral lower extremities. The visualized common femoral vein, superficial femoral vein, profunda femoral vein, popliteal vein and midcalf peroneal and posterior tibial venous segments show no evidence of deep venous thrombosis bilaterally. There is no Theodore's cyst. Calcified plaques in the arteries. US/US venous duplex LE BI IMPRESSION: No acute deep venous thrombosis involving the interrogated vessels/veins lower extremities. Electronically signed by: Shoaib Collier MD 06/11/2024 11:39 AM EST
[2024-06-11 08:54] VITALS: BP 200/86; PULSE 75; O2SAT 96
[2024-06-11 08:56] VITALS: BP 142/63; PULSE 70; RESP 18; TEMP 36.6; O2SAT 95; BMI 27.0
--- NOTE | 2024-06-11 09:05 | ED_ITS ---
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 His and his daughter are present at bedside who assisted with history. Patient states over the past few weeks he has been falling more and more while at home. He ambulates with a walker at baseline. Over the past few days his leg pain has gotten much worse which prompted [facility] he come to [facility] ED to get ultrasounds done of his legs to rule out a DVT. He denies increased calf pain, warmth or swelling. Denies LOC, denies HS. He has tried Tylenol at home with little help. Patient also is no longer on blood thinners because they caused him to bleed profusely through his nose. Relieving factors: none Exacerbating factors: none Associated symptoms: weakness Treatments prior to arrival: none Related Data Home Medications ?Medication ?Instructions ?Recorded ?Confirmed tamsulosin 0.4 mg capsule 0.4 mg PO BEDTIME 06/20/20 04/17/24 metoprolol succinate 25 mg 25 mg PO DAILY 02/10/21 04/17/24 tablet,extended release 24 hr atorvastatin 80 mg tablet 80 mg PO BEDTIME 02/22/21 04/17/24 aspirin 81 mg tablet,delayed 81 mg PO BEDTIME 12/19/21 04/17/24 release isosorbide mononitrate 30 mg 30 mg PO DAILY 12/19/21 04/17/24 tablet,extended release 24 hr latanoprost 0.005 % eye drops 1 drp ophthalmic (eye) BEDTIME 12/19/21 04/17/24 levetiracetam 250 mg tablet 250 mg PO BEDTIME 02/08/23 04/17/24 Previous Rx's ?Medication ?Instructions ?Recorded lisinopril 5 mg tablet 5 mg PO DAILY #30 tabs 03/16/23 Allergies Allergy/AdvReac Type Severity Reaction Status Date / Time bee pollen [bee stings] Allergy Severe Anaphylaxis Verified 06/11/24 09:01 Review of Systems 2 Constitutional: Constitutional: Denies chills, Denies fever(s), Denies night sweats and Reports weakness Eyes: Eyes: Reports no additional eye complaints, Denies blurry vision, Denies change in vision, Denies diplopia, Denies eye discharge, Denies loss of vision and Denies eye pain ENT: Denies dizziness Cardiovascular: Cardiovascular: Reports no additional cardiovascular complaints, Denies chest pain, Denies lightheadedness, Denies Loss of Consciousness and Denies dyspnea Respiratory: Respiratory: Reports no additional respiratory complaints and Denies dyspnea Gastrointestinal: Gastrointestinal: Reports no additional gastrointestinal complaints, Denies abdominal pain, Denies melena, Denies hematochezia, Denies change in bowel habits and Denies change in stool character Genitourinary: Genitourinary: Reports no additional male genitourinary complaints, Denies hematuria, Denies oliguria, Denies difficulty urinating, Denies dysuria, Denies urinary frequency, Denies urinary hesitancy, Denies urinary incontinence and Denies urinary urgency Musculoskeletal: Musculoskeletal: Reports no additional musculoskeletal complaints, Reports abnormal gait, Reports arthralgias (bilateral knees), Reports muscle weakness (BLE), Denies numbness and Denies tingling Neurologic: Reports abnormal gait, Denies dizziness, Denies loss of vision, Denies numbness, Denies tingling and Reports weakness Psychiatric: Psychiatric: Reports no additional psychiatric complaints Endocrine: Endocrine: Reports no additional endocrine complaints Hematologic/Lymphatic: Hematologic/Lymphatic: Reports no additional hematologic/lymphatic complaints Allergic/Immunologic: Allergic/Immunologic: Reports no additional allergic/immunologic complaints PMFSH Past Medical History Attestation statement: The following information was validated with the patient. (all information validated with the patient's and daughter) Source: old records reviewed, obtained from family (patient's and daughter provided additional history and confirmed the history provided by the patient ) and nursing notes reviewed Medical History 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 CVA (cerebrovascular accident) COPD (chronic obstructive pulmonary disease) History of smoking at least 1 pack per day for at least 30 years Ischemic cardiomyopathy COVID-19 vaccine series completed Nasal congestion GUEVARA (dyspnea on exertion) Ambulates with cane Low back pain Hard of hearing Arthritis Right bundle branch block History of acute inferior wall myocardial infarction Cerebrovascular accident Abnormal echocardiogram Essential hypertension Near syncope BPH (benign prostatic hyperplasia) Hyperlipidemia Surgical History S/P carotid endarterectomy (07/18/21) H/O heart artery stent S/P cardiac catheterization H/O foot surgery Previous back surgery Family History Family History Other CAD (coronary artery disease) Social History Social History Household Members: Spouse Housing: House Are you a primary child day care teacher to a significant other at home: No Do you presently have visiting nurse or other home services: No Alcohol intake: former Comment: aware of trip hazard Patient Tobacco Use Status: Former Tobacco user Tobacco use type: Cigarette Cigarette Packs Per Day: 1 Cigarettes Per Day: 20.0 Years Smoked: 30 Smoked in Last 30 Days: No e-Cigarette/Vaping Use: Never Used Second Hand Smoke Exposure: No Use of substances other than those prescribed or required for medical reasons: No Advance Directives: Yes Advance Directives on File: Yes Advance Directives Date on File: 07/18/21 Do you have a plan to hurt others: No Plan service: Yes Current occupational status: retired Physical Exam ED Vital Signs: Vital Signs - 24 hr 06/11/24 08:56 06/11/24 12:00 06/11/24 12:29 Temperature 98 F 98.2 F 98.2 F Pulse Rate 70 73 73 Respiratory Rate 18 16 16 Blood Pressure 142/63 H 179/66 H 179/66 H Pulse Oximetry 95 95 95 Oxygen Delivery Method Room Air Room Air BMI result Body Mass Index 27.0 Const General: cooperative, no acute distress, alert and awake Nutritional Appearance: well nourished Orientation/consciousness: patient oriented x3 Limitations: no limitations HENMT Head: Yes normal to inspection and Yes atraumatic Ears: hearing grossly normal bilaterally and external ears normal General nose exam: Normal external nose present, no nasal discharge noted and no epistaxis Face and sinus: Yes normal facial exam, No abrasion and No laceration Mouth: Normal oral and palatal mucosa present, no drooling and no muffled voice Eyes General: appearance normal, both eyes and all related structures Periorbital: periorbital findings normal Eyelids: Yes eyelids normal Conjunctivae: conjunctivae normal Pupils: Equal, round and reactive pupils present EOM: EOMs intact bilaterally Neck Neck: Yes normal visual inspection, Yes full ROM and Yes no lymphadenopathy Chest Chest palpation & inspection: normal inspection of the chest Resp Effort & Inspection: normal respiratory effort and able to speak in complete sentences GI Inspection: Yes normal to inspection Neuro General: patient oriented x3 and moves all extremities Cranial nerves: Yes Equal, round and reactive pupils present Cognition (Neuro): normal cognition Motor exam (neuro): 5/5 motor strength present throughout Extrem General: Yes normal to inspection, Yes full ROM and Yes capillary refill normal Right lower extremity: full ROM Left lower extremity: full ROM and knee Details: tenderness Location: of the lateral joint line Psych Appearance: grossly normal Mental Status: mental status grossly normal Affect: normal affect Attitude: cooperative Thought process: Normal thought process present Thought content: Normal thought content present Insight: Good insight present (Psych) Medical Decision Making Medical Decision Making MDM Narrative: Patient is an 84 year old assigned male at with a history of COPD and ischemic cardiomyopathy presenting to the emergency department today with bilateral lower leg weakness and frequent falls. Patient's physical exam was as noted in the physical exam portion of this note. Patient's blood work was unremarkable. Patient's urine showed no acute process. Patient's EKG was unremarkable. Patient's bilateral knee and chest x-rays showed no acute process. Patient's head and cervical spine CTs showed no acute process. Patient's bilateral lower leg US showed no acute process. I explained my physical exam findings as well as all test results to the patient, the patient's , and the patient's daughter. I answered all questions asked by the patient, the patient's , and the patient's daughter. I stressed the importance of the patient taking his medication as directed (either prescribed or as the over the counter packaging recommends). I stressed the importance of the patient following up with his primary care provider and an orthopedic provider. I stressed the importance of the patient returning to the emergency department immediately if his symptoms were to worsen or if he were to develop any dizziness, shortness of breath, difficulty breathing, chest pain, blurry vision, loss of vision, nausea, vomiting, abdominal pain, fever, chills, back pain, or any other complaints. Patient, the patient's , and the patient's daughter verbalized agreement and understanding with this treatment plan and discharge. Differential Diagnosis Differential Diagnoses: The differential diagnosis associated with the presentation includes Weakness Frequent falls OA Admission/Observation Consideration of admission/observation: Escalation of care including admission/observation considered Patient would have been admitted to the hospital had his work up had any findings where hospital admission was appropriate and his clinical presentation warranted hospital admission. Lab Data [facility] Lab Attestation statement: I reviewed the patient's lab results. My interpretation of these results are in the [facility] Rationale portion of this note. 06/11/24 09:37 06/11/24 09:37 Labs: Lab Results 06/11/24 06/11/24 06/11/24 Range/Units 09:37 09:38 09:41 WBC 6.2 (4.8-10.8) X10*3/uL RBC 4.01 L (4.60-5.80) X10*6/uL Hgb 12.6 L (14.0-18.0) g/dl Hct 37.7 L (42.0-52.0) % MCV 94.0 (80.0-98.0) fL MCH 31.4 (27.0-33.0) pg MCHC 33.4 (31.0-36.0) g/dl RDW 13.9 (11.0-16.0) % Plt Count 186 (160-400) X10*3/uL MPV 10.0 (9.4-12.4) fL Immature Gran % (Auto) 0.3 (0.0-0.4) % Neut % (Auto) 68.2 (45-73) % Lymph % (Auto) 15.6 L (20-40) % [place] % (Auto) 10.3 (2-11) % Eos % (Auto) 4.5 H (0-4) % Baso % (Auto) 1.1 (0-2) % Lymph # (Auto) 1.0 L (1.2-4.9) X10*3/uL [place] # (Auto) 0.6 (0.1-1.2) X10*3/uL Eos # (Auto) 0.3 (0.0-0.4) X10*3/uL Baso # (Auto) 0.1 (0.0-0.2) X10*3/uL Abs Immat Gran (auto) 0.02 (0.00-0.03) X10*3/uL Absolute Neuts (auto) 4.2 (2.0-8.3) x10*3/uL Absolute Nucleated RBC 0.000 (0.0-0.012) X10*3/uL Nucleated RBC % (auto) 0.0 (0.0-0.2) /100WBC PT 12.8 H (10.9-12.4) SEC INR 1.1 (0.9-1.1) APTT 25.9 L (26.0-36.8) SEC Sodium 139 (135-145) mmol/L Potassium 3.7 (3.3-5.1) mmol/L Chloride 108 (96-108) mmol/L Carbon Dioxide 27 (22-29) mmol/L Anion Gap 8 L (12-20) BUN 8 L (9-16) mg/dL Creatinine 1.01 (0.5-1.4) mg/dL Estim Creat Clear Calc 52.5 Estimated GFR > 60 Random Glucose 88 (60-115) mg/dL Calcium 8.2 L (8.4-10.2) mg/dL Magnesium 2.0 (1.6-2.6) mg/dL Total Bilirubin 0.6 (0.0-1.0) mg/dL AST 48 H (5-37) U/L ALT 33 (0-40) U/L Alkaline Phosphatase 113 (39-117) U/L Troponin I High Sens 13.0 (<3.5-35.0) ng/L Total Protein 6.3 L (6.5-8.0) g/dL Albumin 3.5 (3.5-5.0) g/dL Urine Color Yellow Urine Appearance Clear Urine pH 6.5 (5.0-9.0) Ur Specific [place] <= 1.005 (1.005-1.025) Urine Protein Negative (Neg-Trace) mg/dL Urine Glucose (UA) Negative (Negative) mg/dL Urine Ketones Negative (Negative) mg/dL Urine Blood Negative (Negative) Urine Nitrite Negative (Negative) Ur Leukocyte Esterase Negative (Negative) Influenza Type A (PCR) NEGATIVE (Negative) Influenza Type B (PCR) NEGATIVE (Negative) RSV RNA Qual (PCR) NEGATIVE (Negative) SARS-CoV-2 RNA (RT-PCR) NEGATIVE (Negative) Independent Interpretation I performed an independent interpretation of an: EKG, Plain X-Ray and CT Scan Interpretation: My interpretation is in agreement with the radiologist's impression of these imaging studies. L EXAMINATION: CT HEAD WITHOUT CONTRAST CLINICAL INFORMATION: fall, pain COMPARISON: CT dated February 04, 2023 TECHNIQUE: Contiguous axial imaging was performed from the skull base to vertex without intravenous administration of contrast. This CT examination was performed using dose optimization techniques as appropriate, variously including the following: *Automated exposure control *Adjustment of mA and/or kV according to patient size (this includes techniques or standardized protocols for targeted exams where dose is matched to indication/reason for exam; i.e. extremities or head) *Use of iterative reconstruction technique DLP: 767 mGy-cm FINDINGS: Prominence of the extra-axial CSF spaces along the hemicranial convexities measuring less than 7 mm. No acute intracranial hemorrhage, mass effect, midline shift, hydrocephalus or herniation. Lynch-white matter differentiation is normal. Bilateral multifocal patchy deep periventricular white matter hypodensities. Old lacunar infarcts in the basal ganglia. Calcified plaques in the cavernous supracavernous segment both ICA and the V4 segments of the vertebral arteries. Bony calvarium is intact. No air-fluid levels in the included paranasal sinuses. Tympanic cavities and mastoid air cells are aerated CT/CT head/brain wo IV con IMPRESSION: No acute intracranial hemorrhage. Small vessel occlusive disease. 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 Subacute to chronic subdural hemorrhages cannot be excluded. Electronically signed by: Shoaib Collier MD 06/11/2024 10:30 AM [facility] Dictated By: Shoaib Ruiz MD Signed By: Electronically signed by Shoaib Wick MD 06/11/24 1030 EXAMINATION: XR KNEE, LEFT CLINICAL INFORMATION: Status post fall. COMPARISON: X-ray dated February 04, 2023 TECHNIQUE: Four views of the left knee. FINDINGS: No acute cortical disruption or malalignment. Exostosis at the patella tendon insertion and quadriceps tendon insertion. No lytic or blastic lesions. Exostosis in the medial aspect proximal diaphysis of the tibia. Vascular calcifications. No joint effusion, suprapatellar bursa. XR/XR knee LT 3V IMPRESSION: No acute fracture or dislocation. Stable. Electronically signed by: Shoaib Collier MD 06/11/2024 11:41 AM EST RP Dictated By: Shoaib Ruiz MD Signed By: Electronically signed by Shoaib Wick MD 06/11/24 1141 EXAMINATION: XR KNEE, RIGHT CLINICAL INFORMATION: Status post fall. COMPARISON: X-ray dated June 20, 2020 TECHNIQUE: Four views of the right knee. FINDINGS: No acute cortical disruption or malalignment. No joint effusion, suprapatellar bursa. Vascular calcifications. Exostosis at the quadriceps tendon and patellar tendon insertions. Focal well-corticated calcification at the patella tendon insertion into the tibia tuberosity. XR/XR knee RT 3V IMPRESSION: No acute fracture or dislocation. Stable. Electronically signed by: Shoaib Collier MD 06/11/2024 12:00 PM EST RP Dictated By: Shoaib Ruiz MD Signed By: Electronically signed by Shoaib Wick MD 06/11/24 1200 EXAMINATION: XR CHEST CLINICAL INFORMATION: weakness COMPARISON: X-ray dated February 08, 2023 TECHNIQUE: Frontal view of the chest was obtained. FINDINGS: Prominence of the interstitial markings. No consolidation, pleural effusion or pneumothorax. Cardiomediastinal silhouette is normal in size. Calcified plaque aortic arch. Multilevel thoracic spondylosis. Degenerative changes in the shoulders. XR/XR chest 1V IMPRESSION: Consider chronic interstitial lung disease. Electronically signed by: Shoaib Collier MD 06/11/2024 12:10 PM [facility] Dictated By: Shoaib Ruiz MD Signed By: Electronically signed by Shoaib Wick MD 06/11/24 1210 EXAMINATION: CT CERVICAL SPINE WITHOUT CONTRAST CLINICAL INFORMATION: Fall. Pain COMPARISON: None available. TECHNIQUE: Thin section axial imaging with sagittal and coronal reformats. This CT examination was performed using dose optimization techniques as appropriate, variously including the following: *Automated exposure control *Adjustment of mA and/or kV according to patient size (this includes techniques or standardized protocols for targeted exams where dose is matched to indication/reason for exam; i.e. extremities or head) *Use of iterative reconstruction technique DLP: 422 mGy-cm FINDINGS: There is advanced disc space narrowing throughout the C-spine with posterior spurring and anterior spondylitic change but no fracture or destructive process or encroachment on the spinal canal. Findings appear most apparent at the C6-7 level. The prevertebral soft tissues are normal. CT/CT cervical spine wo IV con IMPRESSION: Multilevel degenerative change. No fracture. Fleischner guidelines were followed. Electronically signed by: Taco Lynne MD 06/11/2024 10:53 AM EST RP Dictated By: Taco Lynne MD Signed By: Electronically signed by Taco Lynne MD 06/11/24 1053 EXAMINATION: US TRIPLEX LOWER EXTREMITY, BILATERAL CLINICAL INFORMATION: Lower extremity pain and swelling. COMPARISON: None available. TECHNIQUE: Color-flow triplex imaging with spectral analysis and compression. Doppler were performed on the bilateral lower extremities. FINDINGS: Respiratory variation, normal compression and augmented flow are noted throughout the bilateral lower extremities. The visualized common femoral vein, superficial femoral vein, profunda femoral vein, popliteal vein and midcalf peroneal and posterior tibial venous segments show no evidence of deep venous thrombosis bilaterally. There is no Theodore's cyst. Calcified plaques in the arteries. US/US venous duplex LE BI IMPRESSION: No acute deep venous thrombosis involving the interrogated vessels/veins lower extremities. Electronically signed by: Shoaib Collier MD 06/11/2024 11:39 AM EST RP Dictated By: Shoaib Ruiz MD Signed By: Electronically signed by Shoaib Wick MD 06/11/24 1139 Vent. Rate: 063 BPM Atrial Rate: 063 BPM P-R Int: 178 ms QRS Dur: 148 ms QT Int: 458 ms P-R-T Axes: 030 024 -24 degrees QTc Int: 468 ms Normal sinus rhythm Non-specific intra-ventricular conduction block Lateral infarct (cited on or before 12-JUL-2021) When compared with ECG of 08-FEB-2023 15:05, Fusion complexes are no longer Present Premature ventricular complexes are no longer Present Premature atrial complexes are no longer Present Nonspecific T wave abnormality has replaced inverted T waves in Inferior leads DD/ 0912 Radiology Impression Discussion of test interpretation with radiology: I have reviewed the radiologist's reading. Independent Historian Clinical information obtained from an independent historian. History obtained from or confirmed by: Spouse (patient's provided additional history and confirmed the history provided by the patient), EMS (EMS provided additional history and confirmed the history provided by the patient) and Other (patient's daughter provided additional history and confirmed the history provided by the patient) Discharge Plan Discharge Clinical Impression: Bilateral leg weakness, Knee pain, left, Fall Patient Disposition: Home, Self-Care Instructions: Fall Prevention for Older Adults (ED), Knee Pain (ED) Additional Instructions: Follow up with your primary care provider and an orthopedic provider. Return to the emergency department immediately if your symptoms worsen or if you develop any dizziness, shortness of breath, difficulty breathing, chest pain, blurry vision, loss of vision, nausea, vomiting, abdominal pain, fever, chills, back pain, or any other complaints. Prescriptions: No Action lisinopril 5 mg tablet 5 mg PO DAILY Qty: 30 5RF Rx Instructions: Resume Lisinopril 5mg daily tamsulosin 0.4 mg Capsule 0.4 mg PO BEDTIME atorvastatin 80 mg Tablet 80 mg PO BEDTIME aspirin 81 mg tablet,delayed release (DR/EC) 81 mg PO BEDTIME latanoprost 0.005 % Drops 1 drp OPHTHALMIC (EYE) BEDTIME isosorbide mononitrate 30 mg Tablet Extended Release 24 Hr 30 mg PO DAILY levetiracetam 250 mg Tablet 250 mg PO BEDTIME metoprolol succinate 25 mg tablet extended release 24 hr 25 mg PO DAILY Referrals: [facility] [Provider Group] (Call to establish and follow up with an orthopedic provider.) Monica Burkett MD [Primary Care Provider] - Interventions: ED Discharge Assessment Last Done: 06/11/24 12:29 Discharge Date/Time: 06/11/24 12:29 Print Language: Hebrew
--- NOTE | 2024-06-11 09:06 | ECG_ITS ---
Test Reason : WEAKNESS Blood Pressure : / mmHG Vent. Rate : 063 BPM Atrial Rate : 063 BPM P-R Int : 178 ms QRS Dur : 148 ms QT Int : 458 ms P-R-T Axes : 030 024 -24 degrees QTc Int : 468 ms Normal sinus rhythm Non-specific intra-ventricular conduction block Lateral infarct (cited on or before 12-JUL-2021) Abnormal ECG When compared with ECG of 08-FEB-2023 15:05, Fusion complexes are no longer Present Premature ventricular complexes are no longer Present Premature atrial complexes are no longer Present Nonspecific T wave abnormality has replaced inverted T waves in Inferior leads Referred By: Marli Fish Electronically Signed By:JASMYN IVEY MD
[2024-06-11 09:47] LABS: MANUAL DIFF FLAG NO
[2024-06-11 09:52] LABS: Basophils Absolute Auto 0.1 X10*3/uL (0.0-0.2); Basophils Percent Auto 1.1 % (0-2); Eosinophils Absolute Auto 0.3 X10*3/uL (0.0-0.4); Eosinophils Percent Auto 4.5 % (0-4); Hematocrit 37.7 % (42.0-52.0); Hemoglobin 12.6 g/dl (14.0-18.0); Imm Gran Abs Auto 0.02 X10*3/uL (0.00-0.03); Imm Gran Pct Auto 0.3 % (0.0-0.4); Lymphocytes Percent Auto 15.6 % (20-40); Mean Corpuscular HGB Conc 33.4 g/dl (31.0-36.0); Mean Corpuscular Hemoglobin 31.4 pg (27.0-33.0); Monocytes Absolute Auto 0.6 X10*3/uL (0.1-1.2); Monocytes Percent Auto 10.3 % (2-11); Neutrophils Absolute Auto 4.2 x10*3/uL (2.0-8.3); Neutrophils Percent Auto 68.2 % (45-73); Platelet Count 186 X10*3/uL (160-400); Red Blood Count 4.01 X10*6/uL (4.60-5.80); Red Cell Distribution Width 13.9 % (11.0-16.0); White Blood Count 6.2 X10*3/uL (4.8-10.8)
[2024-06-11 10:03] LABS: Alanine Aminotransferase 33 U/L (0-40); Albumin Level 3.5 g/dL (3.5-5.0); Alkaline Phosphatase 113 U/L (39-117); Anion Gap 8 (12-20); Aspartate Amino Transferase 48 U/L (5-37); Bilirubin Total 0.6 mg/dL (0.0-1.0); Blood Urea Nitrogen 8 mg/dL (9-16); Calcium 8.2 mg/dL (8.4-10.2); Carbon Dioxide 27 mmol/L (22-29); Chloride 108 mmol/L (96-108); Creatinine Clr Calc Pharmacy 52.5; Estimated Glomerular Filt Rate > 60; Glucose Random 88 mg/dL (60-115); Potassium 3.7 mmol/L (3.3-5.1); Sodium 139 mmol/L (135-145); Total Protein 6.3 g/dL (6.5-8.0)
[2024-06-11 10:05] LABS: INTERNATIONAL NORM RATIO 1.1 (0.9-1.1); Prothrombin Time 12.8 SEC (10.9-12.4)
[2024-06-11 10:07] LABS: Appearance Urine Clear; Color Urine Yellow; Glucose Urine UA Negative (Negative); Leukocyte Esterase Urine Negative (Negative); Nitrite Urine Negative (Negative); PH 6.5 (5.0-9.0); Specific Gravity - Urine <= 1.005 (1.005-1.025); Urine Blood Negative (Negative); Urine Ketones Negative (Negative); Urine Protein Negative (Neg-Trace)
[2024-06-11 10:07] LABS: Partial Thromboplastin Time 25.9 SEC (26.0-36.8)
[2024-06-11 10:34] LABS: Influenza A PCR NEGATIVE (Negative); Influenza B PCR NEGATIVE (Negative); Resp Syncy Virus RNA Qual PCR NEGATIVE (Negative); SARS COV2 PCR INHOUSE NEGATIVE (Negative)
--- NOTE | 2024-06-11 11:50 | PC.NURSE ---
nad, aware of care plan, updated to results that are in, nad, alert, family at bedside
[2024-06-11 12:00] VITALS: BP 179/66; PULSE 73; RESP 16; TEMP 36.8; O2SAT 95
[2024-06-11 12:29] VITALS: BP 179/66; PULSE 73; RESP 16; TEMP 36.8; O2SAT 95
== END 2024-06-11 12:29 | disposition home or self-care (01) ==
PROVIDERS: Physician Assistant Medical; Emergency Provider Emergency Medicine; PCP Internal Medicine
DX: R53.1 Weakness (principal); M25.562 Pain in left knee; R29.6 Repeated falls; Z91.81 History of falling; Z03.818 Encounter for observation for suspected exposure to other biological agents ruled out; M79.662 Pain in left lower leg; M79.661 Pain in right lower leg; I10 Essential (primary) hypertension; E78.5 Hyperlipidemia, unspecified; J44.9 Chronic obstructive pulmonary disease, unspecified; Z86.73 Personal history of transient ischemic attack (TIA), and cerebral infarction without residual deficits; Z87.891 Personal history of nicotine dependence; Z79.82 Long term (current) use of aspirin; Z79.02 Long term (current) use of antithrombotics/antiplatelets; Z79.899 Other long term (current) drug therapy
CPT/HCPCS: 0241U; 36415; 70450; 71045; 72125; 73562; 80053; 81003; 83735; 84484; 85025; 85610; 85730; 93005; 93970; 99284

== ENCOUNTER → 2024-06-11 09:05 | Outpatient (BNV) | payer OTHER, SELFPAY | PROVIDERS: Emergency Provider Emergency Medicine; PCP Internal Medicine; Visit Provider Radiology Diagnostic Radiology | DX: R53.1 Weakness (principal); M79.661 Pain in right lower leg; M79.662 Pain in left lower leg | CPT/HCPCS: 70450; 71045; 73562; 93970 ==

== ENCOUNTER → 2024-06-11 09:06 | Outpatient (BNV) | payer OTHER, SELFPAY | PROVIDERS: Emergency Provider Emergency Medicine; PCP Internal Medicine; Visit Provider Internal Medicine Cardiovascular Disease | DX: R53.1 Weakness (principal); R94.31 Abnormal electrocardiogram [ECG] [EKG] | CPT/HCPCS: 93010 ==

== ENCOUNTER 2024-06-30 09:46 | Outpatient (REF) | payer OTHER, SELFPAY ==
--- NOTE | ~2024-06-30 | US_ITS ---
EXAMINATION: US EXTRACRANIAL CAROTID DUPLEX, BILATERAL CLINICAL INFORMATION: Carotid stenosis. COMPARISON: 05/24/2023 TECHNIQUE: Real-time ultrasound and Doppler techniques (integrating B-mode 2-D vascular images, Doppler spectral analysis and color-flow Doppler imaging) were utilized to interrogate the extracranial carotid arteries, the vertebral arteries and proximal subclavian arteries bilaterally. The degree of stenosis is determined by criteria similar to NASCET. FINDINGS: Right Side: 1. There is mild atherosclerotic plaque seen status post endarterectomy in the bifurcation/proximal ICA region. 2. The common carotid artery PSV proximally is 40 cm/s and distally 48 cm/s. 3. The proximal internal carotid artery velocities are 83 cm/s systolic and 19 cm/s diastolic. 4. The proximal external carotid artery PSV is 533 cm/s. 5. The vertebral artery shows antegrade flow. 6. The subclavian artery waveforms are normal. Left Side: 1. There is severe atherosclerotic plaque seen in the bifurcation/proximal ICA region. 2. The common carotid artery PSV proximally is 118 cm/s and distally 103 cm/s. 3. The proximal internal carotid artery velocities are 158 cm/s systolic and 37 cm/s diastolic. 4. The proximal external carotid artery PSV is 260 cm/s. 5. The vertebral artery shows antegrade flow. 6. The subclavian artery waveforms are normal. US/US carotid duplex BI IMPRESSION: 1. Right: Status post endarterectomy. Minimal, non-hemodynamically significant stenosis of the proximal right internal carotid artery corresponding to a 0-49% stenosis by velocity criteria. There is a worsening marked right ECA stenosis. 2. Left: Moderate, hemodynamically significant stenosis of the proximal left internal carotid artery corresponding to a 50-79% stenosis by velocity criteria. There is a mild left ECA stenosis. 3. There is no change in the category severity of disease when compared to the previous study dated 05/24/2023. Electronically signed by: Malcom Harper MD 07/03/2024 11:53 AM EST
== END 2024-06-30 09:47 | disposition home or self-care (01) ==
LOC: HO.US 09:46
PROVIDERS: PCP Internal Medicine; Visit Provider Surgery Vascular Surgery
DX: I65.23 Occlusion and stenosis of bilateral carotid arteries (principal)
CPT/HCPCS: 93880

== ENCOUNTER 2024-08-07 10:47 | Outpatient (AMB) | payer OTHER, SELFPAY ==
--- NOTE | 2024-08-07 10:47 | A.OFFVIS_ITS ---
Vital Signs 08/07/24 10:55 08/07/24 10:57 BP 134/64 136/60 Blood Pressure Location Lt brachial Rt brachial Position Sitting Sitting Intake Visit Reasons: 1yr follow up s/p Carotid 06/30/24 Conveyor Feeder Required: No Accompanied by: Spouse Allergies bee pollen [bee stings] Allergy (Severe, Verified 06/11/24 09:01) Anaphylaxis HPI HPI 1yr follow up s/p Carotid 06/30/24: Details: Very pleasant 84-year-old gentleman presents for routine carotid surveillance he had undergone right carotid endarterectomy nearly 3 years ago. He reports no interval issues. He remains fairly active. He continues to mow his lawn with a riding mower. He does occasional gardening and simple activities around the house. He reported some lower extremity cramping but it seems to have been relieved by decreasing his cholesterol medication. He is being maintained on aspirin and Plavix. [facility] Medical History 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 CVA (cerebrovascular accident) COPD (chronic obstructive pulmonary disease) History of smoking at least 1 pack per day for at least 30 years Ischemic cardiomyopathy COVID-19 vaccine series completed Nasal congestion GUEVARA (dyspnea on exertion) Ambulates with cane Low back pain Hard of hearing Arthritis Right bundle branch block History of acute inferior wall myocardial infarction Cerebrovascular accident Abnormal echocardiogram Essential hypertension Near syncope BPH (benign prostatic hyperplasia) Hyperlipidemia Surgical History S/P carotid endarterectomy (07/18/21) H/O heart artery stent S/P cardiac catheterization H/O foot surgery Previous back surgery Family History Other CAD (coronary artery disease) Social History Household Members: Spouse Housing: House Are you a primary patient care coordinator to a significant other at home: No Do you presently have visiting nurse or other home services: No Alcohol intake: former Comment: aware of trip hazard Patient Tobacco Use Status: Former Tobacco user Tobacco use type: Cigarette Cigarette Packs Per Day: 1 Cigarettes Per Day: 20.0 Years Smoked: 30 e-Cigarette/Vaping Use: Never Used Second Hand Smoke Exposure: No Advance Directives Date on File: 07/18/21 service: Yes Current occupational status: retired Review of Systems Const All systems reviewed & are unremarkable except as noted in HPI and below Denies chills, Denies fatigue, Denies fever(s), Denies weight gain and Denies weight loss ENT Reports Normal hearing present and Denies dizziness Card Denies chest pain, Denies leg edema, Denies lightheadedness, Denies p alpitations, Denies dyspnea on exertion, Denies orthopnea and Denies other Resp Denies cough and Denies dyspnea on exertion GI Denies hematochezia and Denies change in stool character Musc Denies abnormal gait, Denies muscle weakness, Denies numbness, Denies radiating pain into limb and Denies tingling Skin/Breast Denies skin ulcer and Denies wounds Neuro Reports Normal hearing present, Denies abnormal gait, Denies dizziness, Denies numbness and Denies tingling Psych Reports no additional complaints Endo Denies fatigue and Denies palpitations Physical Exam Vital Signs: Last Vital Signs BP 136/60 08/07/24 10:57 Const General: cooperative, healthy appearing and comfortable Orientation/consciousness: oriented to person, oriented to place and oriented to time HEENT Head: Yes normal to inspection Neck Neck: Yes normal visual inspection Carotids: no bruits Chest Chest palpation & inspection: normal inspection of the chest Resp Effort & Inspection: normal respiratory effort and able to speak in complete sentences Auscultation: clear to auscultation bilaterally, no crackles, no rales, no rhonchi and no wheezes Cardio Rate: regular rate Rhythm: regular rhythm Heart sounds: S1 normal heart sound present and S2 normal heart sound present Bruits: no carotid bruits Peripheral pulses: Peripheral pulses 2+ throughout GI Inspection: Yes normal to inspection Skin Wounds: no wounds Hair: normal Neuro General: oriented to person, oriented to place and oriented to time Cranial nerves: Yes CN's II-XII intact bilaterally and Yes Normal hearing present Cognition (Neuro): normal cognition Motor exam (neuro): 5/5 motor strength present throughout Extrem Other: venous exam: No significant superficial varicosities or spider telangiectasias, minimal edema General: No clubbing, No cyanosis and No edema Psych Appearance: grossly normal Mental Status: mental status grossly normal Speech and movement: Normal speech and movement present Results Reviewed Results Reviewed: Noninvasive carotid testing dated 06/30/2024 demonstrates right-sided 0-49 left side 50-79% stenosis with a peak systolic of 158 Assessment & Plan Assessment & Plan (1) Bilateral carotid artery stenosis: Comment: 07/18/2021 - right carotid endarterectomy Code(s): I65.23 - Occlusion and stenosis of bilateral carotid arteries Category: Medical Plan: In short patient has asymptomatic carotid disease. We have reviewed signs and symptoms of a stroke. We also discussed risk factor modification inclusive a healthy diet low in cholesterol. The patient will follow up with us with surveillance ultrasound of the carotids 1 year. Should there be any changes or signs or symptoms of a stroke we will be happy to see them back sooner. Thank you for allowing us to participate in this patient's care. If there are any questions or concerns please do not hesitate to contact us. Orders: Orders US carotid duplex BI 1 Year I65.23 - Occlusion and stenosis of bilateral carotid arteries Coding Level of Care Code Est Pt Level 4 (75079) Complex EM visit Add On G2211 Diagnoses Bilateral carotid artery stenosis I65.23
[2024-08-07 10:55] VITALS: BP 134/64
[2024-08-07 10:57] VITALS: BP 136/60
--- OUTSIDE RECORDS SUMMARY | 2024-08-07 11:24 | XMS_ITS | Continuity of Care Document ---
Author Name [facility] Organization [facility] Care Team Providers Care Calculus Tutor Name Role Phone [facility] Unavailable Unavailable Problems Combined list of problems from Department of Defense and Veterans Affairs facilities. It does not include entries that were removed or entered in error. Problem Status Onset Date Problem Type Date of Resolution Comments Source Asbestos-induced pleural plaque Active Condition [facility] Carotid Artery Stenosis (SCT [id number]) Active Condition Jun 23, 2024 Entered By: RUBI CROWE Comment: s/p CEA right [facility] Cerebrovascular accident Active Condition Jun 23, 2024 Entered By: RUBI CROWE Comment: rigth sided weakness, received tPA with full resolution 2020- [facility] COPD - Chronic Obstructive Pulmonary Disease (SCT [id number]) Active Condition Oct 04, 2018 Entered By: ODILIA MASTERSON Comment: d/ c smoking 8 months [facility] Coronary atherosclerosis Active Condition May 03, 2022 Entered By: MARGARITA BARBER Comment: following with [facility] cardiology, 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, near syncope [facility] Elderly fall Active Condition [facility] H/O: glaucoma Active Condition [facility] HTN - Hypertension (SCT [id number]) Active Condition [facility] Hyperlipidemia Active Condition [facility] Multinodular goiter Active Condition [facility] Spinal Stenosis of Lumbar Region (SCT [id number]) Active Condition [facility] Diagnosis: ICD-10-CM 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 [facility] [place] Diagnosis: ICD-10-CM I65.29 Occlusion and stenosis of unspecified carotid artery Active Diagnosis [facility] Diagnosis: ICD-10-CM Z23 Encounter for immunization Active Diagnosis [facility]AMPBELL RN [facility] [place] Diagnosis: ICD-10-CM Z46.0 Encounter for fit/adjst of spectacles and contact lenses Active Diagnosis [facility] Diagnosis: ICD-10-CM 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 [facility] Diagnosis: ICD-10-CM H26.8 Other specified cataract Active Diagnosis [facility] FERNANDESN [facility] [place] Diagnosis: ICD-10-CM L72.0 Epidermal cyst Active Diagnosis [facility] TRACEY BORJA[facility]ENIL[facility] [place] Diagnosis: ICD-10-CM R22.1 Localized swelling, mass and lump, neck Active Diagnosis [facility]NAND[facility] [place] Diagnosis: ICD-10-CM Z98.890 Other specified postprocedural states Active Diagnosis [facility] [place] Diagnosis: ICD-10-CM M54.2 Cervicalgia Active Diagnosis [facility] FERNANDES N [facility] [place] Diagnosis: ICD-10-CM Z04.9 Encounter for examination and observation for unsp reason Active Diagnosis [facility] FERNANDES N [facility] [place] Diagnosis: ICD-10-CM L57.0 Actinic keratosis Active Diagnosis [facility] Penny FERNANDESN [facility] [place] Diagnosis: ICD-10-CM 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 Medication Details Route Status Patient Instructions Prescription Expires Prescription Number Last Dispense Date Ordering Provider Order Date Order Qty Source ACETAMINOPH EN 500MG TAB TAKE TWO TABLETS BY MOUTH TWICE DAILY FOR PAIN ORAL ACTIVE 06/24/2025 [id number] FURCOLO,T RAVINDRA 2023 400 [facility] ALBUTEROL 90MCG/ACTUA T (CFC-F) INHL,ORAL,8 .5GM DOSE COUNTER INHALE 2 PUFFS BY MOUTH EVERY 6 HOURS NEEDED FOR BRONCHOS PASM PREVENTI ON RESPIR ATORY (INHAL ATION) 08/03/2023 [id number] [facility] JAWED 2022 1 [facility] ASPIRIN 81MG TAB,EC TAKE ONE TABLET BY MOUTH ONCE DAILY FOR PAIN TO PREVENT STROKE/H EART ATTACK ORAL ACTIVE 06/24/2025 [id number] FURCOLO,T RAVINDRA 2023 120 [facility] ATORVASTATI N CA 80MG TAB TAKE ONE-HALF TABLET BY MOUTH ONCE DAILY FOR CHOLESTE ROL ORAL ACTIVE 06/24/2025 [id number] 4 FURCOLO,T RAVINDRA 2023 45 [facility] ATORVASTATI N CA 80MG TAB TAKE ONE TABLET BY MOUTH ONCE DAILY FOR CHOLESTE ROL ORAL 05/30/2024 [id number] [facility] JAWED 2022 90 [facility] BRIMONIDINE TARTRATE 0.15% SOLN,OPH INSTILL 1 DROP INTO THE RIGHT EYE THREE TIMES A DAY FOR GLAUCOMA OPHTHA LMIC 03/30/2024 [id number] ROGER BEAN 2023 10 [facility] DICLOFENAC NA 1% GEL,TOP APPLY 2 GRAMS TOPICALL Y FOUR TIMES A DAY FOR OSTEOART HRITIS - USE DOSING CARD PROVIDED IN BOX SHERLYN Francis 01/18/2024 [id number] CIRA GARIBAY 2023 100 [facility] EPINEPHRINE (EQV-EPI-PE N) 0.3MG/0.3ML INJECTOR INJECT DIRECTED INTRAMUS CULARLY ONCE DAILY NEEDED FOR LIFE THREATEN ING ALLERGIC REACTION INTRAM USCULA R ACTIVE 02/11/2025 [id number] FURCOLO,T RAVINDRA 2023 2 [facility] FLUTICASONE PROPIONATE 50MCG/SPRAY SOLN,NASAL, 16GM INSTILL 1 SPRAY INTO EACH NOSTRIL AT BEDTIME FOR NASAL IRRITATI ON/INFLA MMATION NASAL 07/04/2024 [id number] [facility] JAWED 2022 1 [facility] ISOSORBIDE MONONITRATE 30MG TAB,SA TAKE ONE TABLET BY MOUTH ONCE DAILY TO PREVENT ANGINA ORAL SUSPEND ED 07/17/2025 [id number] THAROLYSHANIQUE,Martín RAVINDRA 2024 90 [facility] ISOSORBIDE MONONITRATE 30MG TAB,SA TAKE ONE TABLET BY MOUTH ONCE DAILY TO PREVENT ANGINA ORAL DISCONT INUED 05/30/2024 [id number] 4 [facility] JAWED 2023 90 [facility] ISOSORBIDE MONONITRATE 30MG TAB,SA TAKE ONE TABLET BY MOUTH ONCE DAILY TO PREVENT ANGINA ORAL DISCONT INUED 08/23/2023 [id number] RA DONA BARBER 2022 90 [facility] KETOROLAC TROMETHAMIN E 0.5% SOLN,OPH INSTILL 1 DROP INTO THE AFFECTED EYE(S) THREE TIMES A DAY FOLLOWIN G SURGERY FOR 3 WEEKS. SEPARATE BOTTLE FOR EACH EYE. OPHTHA LMIC ACTIVE 02/12/2025 [id number] ROGER BEAN 2023 10 [facility] LATANOPROST 0.005% SOLN,OPH INSTILL 1 DROP INTO EACH EYE AT BEDTIME TO REDUCE PRESSURE IN THE EYE OPHTHA LMIC ACTIVE 11/07/2024 [id number] 4 [facility] JAWED 2023 7.5 [facility] LATANOPROST 0.005% SOLN,OPH INSTILL 1 DROP INTO EACH EYE AT BEDTIME TO REDUCE PRESSURE IN THE EYE OPHTHA LMIC DISCONT INUED 07/04/2024 [id number] ROSA PATHAK AMMED JAWED 2022 10 [facility] LEVETIRACET AM 250MG TAB TAKE ONE TABLET BY MOUTH AT BEDTIME ORAL SUSPEND ED 07/17/2025 [id number] FURCOLO,T RAVINDRA 2024 90 [facility] LEVETIRACET AM 250MG TAB TAKE ONE TABLET BY MOUTH AT BEDTIME ORAL DISCONT INUED 07/04/2024 [id number] ROSA PATHAK AMMED JAWED 2023 90 [facility] LEVETIRACET AM 250MG TAB TAKE ONE TABLET BY MOUTH AT BEDTIME ORAL DISCONT INUED 09/03/2023 [id number] CIRA GARIBAY 2022 90 [facility] LISINOPRIL 20MG TAB TAKE ONE TABLET BY MOUTH ONCE DAILY FOR HIGH BLOOD PRESSURE TO CONTROL BLOOD PRESSURE ORAL ACTIVE 02/11/2025 [id number] 4 FURCOLO,T RAVINDRA 2023 90 [facility] LISINOPRIL 5MG TAB TAKE ONE TABLET BY MOUTH ONCE DAILY FOR HIGH BLOOD PRESSURE TO CONTROL BLOOD PRESSURE ORAL DISCONT INUED (EDIT) 07/04/2024 [id number] ROSA PATHAK JAWED 2022 90 [facility] METOPROLOL SUCCINATE 25MG TAB,SA TAKE ONE TABLET BY MOUTH ONCE DAILY FOR BLOOD PRESSURE /HEART ORAL ACTIVE 07/17/2025 [id number] FURCOLO,T RAVINDRA 2023 90 [facility] METOPROLOL SUCCINATE 25MG TAB,SA TAKE ONE TABLET BY MOUTH ONCE DAILY FOR BLOOD PRESSURE /HEART ORAL DISCONT INUED 05/30/2024 [id number] 4 [facility]22 90 [facility] PREDNISOLON E ACETATE 1% SUSP,OPH INSTILL 1 DROP INTO THE AFFECTED EYE(S) THREE TIMES A DAY FOLLOWIN G SURGERY FOR 3 WEEKS. SEPARATE BOTTLE FOR EACH EYE. OPHTHA LMIC ACTIVE 02/12/2025 [id number] ROGER BEAN 2023 10 [facility] TAMSULOSIN HCL 0.4MG CAP TAKE ONE CAPSULE BY MOUTH AT BEDTIME FOR ENLARGED PROSTATE ORAL ACTIVE 07/17/2025 [id number] Martín CROWE RAVINDRA 2023 90 [facility] TAMSULOSIN HCL 0.4MG CAP TAKE ONE CAPSULE BY MOUTH AT BEDTIME FOR ENLARGED PROSTATE ORAL DISCONT INUED 07/04/2024 [id number] TAMSULOSIN HCL 0.4MG CAP TAKE ONE CAPSULE BY MOUTH AT BEDTIME ORAL DISCONT INUED (EDIT) 05/30/2024 [id number] [facility] 30 [facility] TIMOLOL MALEATE 0.25% SOLN,OPH INSTILL 1 DROP INTO THE LEFT EYE TWICE DAILY OPHTHA LMIC DISCONT INUED 04/04/2024 [id number] FARIDA BERMEO 2023 5 [facility] TIMOLOL MALEATE 0.25% SOLN,OPH INSTILL 1 DROP INTO THE LEFT EYE TWICE DAILY OPHTHA LMIC 04/12/2024 [id number] FARIDA BERMEO 2023 5 [facility] Allergies, Adverse Reactions, Alerts Combined list of allergies from Department of Defense and Veterans Affairs facilities. It does not include entries that were removed or entered in error. Substance Category Reaction Severity Reaction type Status Date Reported Comments Source AUGMENTIN Propensity to adverse reactions to drug (finding) active 8 [facility] BEE VENOM Propensity to adverse reaction (finding) active 8 [facility] HYDROCHLOROT HIAZIDE Propensity to adverse reactions to drug (finding) Hyponatremi a MODERATE active 3 [facility] Immunizations Combined list of available immunizations from the Department of Defense and Veterans Affairs facilities. Immunization Series Date Given Administered By Site Reaction Lot Number CVX Code Drug Nursery Helper Status Comments Source RSV, BIVALENT, PROTEIN SUBUNIT RSVPREF, DILUENT RECONSTITUTED , 0.5 ML, PF 1 2023 DEANGELO MCCARTNEY E LEFT DELTO ID [id number] 305 complet ed diluent lot #[id number] exp [id number] [facility] COVID-19 (MODERNA), MRNA, LNP-S, PF, 50 MCG/0.5 ML (AGES 12+ YEARS) 2023 CHILSON,TIMOT HY E LEFT DELTO ID [id number] 312 complet ed [facility] INFLUENZA, HIGH-DOSE, TRIVALENT, PF 2023 CHILSON,TIMOT HY E RIGHT DELTO ID [id number] 135 complet ed [facility] COVID-19 (MODERNA), MRNA, LNP-S, PF, 50 MCG/0.5 ML (AGES 12+ YEARS) 1 2022 YU MORTENSEN RIGHT DELTO ID [id number] 312 complet ed [facility] INFLUENZA, HIGH-DOSE, QUADRIVALENT 2022 YU MORTENSEN P LEFT DELTO ID [id number] 197 complet ed [facility] COVID-19 (MODERNA), MRNA, LNP-S, BIVALENT BOOSTER, PF, 50 MCG/0.5 ML OR 25MCG/0.25 ML DOSE 1 2021 YU MORTENSEN P LEFT DELTO ID [id number] 229 complet ed [facility] INFLUENZA VACCINE, QUADRIVALENT, ADJUVANTED 2021 205 complet ed [facility] COVID-19 (MODERNA), MRNA, LNP-S, PF, 100 MCG/0.5ML DOSE OR 50 MCG/0.25ML DOSE 3 2021 207 complet ed MOD; [id number] ; 2 [facility] COVID-19 (MODERNA), MRNA, LNP-S, PF, 100 MCG/0.5 ML DOSE 3 2020 207 complet ed MOD; [id number]; 1 [facility] INFLUENZA VACCINE, QUADRIVALENT, ADJUVANTED 2020 205 complet ed [facility] PNEUMOCOCCAL POLYSACCHARID E PPV23 2020 33 complet ed [facility] COVID-19 (MODERNA), MRNA, LNP-S, PF, 100 MCG/0.5 ML DOSE 2 2020 207 complet ed MOD; [id number]; 1 [facility] COVID-19 (MODERNA), MRNA, LNP-S, PF, 100 MCG/0.5 ML DOSE 1 2020 207 complet ed MOD; [id number]; 1 [facility] INFLUENZA, SEASONAL, INJECTABLE, PRESERVATIVE FREE 2019 140 complet ed Partner: [facility]. Administe red by: BERLIN DE ANDA (WVO=[phone]). Partner 49 Lot#: [id number] Mfr: SEQIRUS; Dosage: 0.5 [facility] ZOSTER RECOMBINANT 2 2018 187 complet ed [facility] INFLUENZA, SEASONAL, INJECTABLE 2018 141 complet ed [facility] ZOSTER RECOMBINANT 1 2018 187 complet ed [facility] INFLUENZA, SEASONAL, INJECTABLE 2017 141 complet ed [facility] INFLUENZA, SEASONAL, INJECTABLE [address] [facility]ters [facility] TDAP 2014 115 complet ed [facility] Results Combined list of recent chemistry, hematology and other laboratory results from Department of Defense and Veterans Affairs, ranging from 15 months to all on record, depending upon the facility. Order Name Results Value Reference Range Date Interpretation Specimen Comments Source THYROID T4 FREE(FT4) (WROX) THYROXINE (T4) FREE [MASS/VOLUM E] IN SERUM OR PLASMA 1.14 ng/dL 0.6 - 1.6 07/15 Specimen Type: SERUM No comment entered. Ordering Provider: INGE KNIGHT Report Released Date/Time: Jun 12, 2024 08:46 AM Reporting Lab[facility] [facility] [address] [facility] [address] Performing Lab: [facility] [place] [facility] [address] [facility] [address] [facility] [facility] [place] TSH THYROTROPIN [UNITS/VOLU ME] IN SERUM OR PLASMA 0.41 u[IU]/ mL 0.35 - 5.00 07/15 Specimen Type: SERUM No comment entered. Ordering Provider: INGE KNIGHT Report Released Date/Time: Jun 12, 2024 08:46 AM Reporting Lab: [facility] [place] [facility] [address] [facility] [address] Performing Lab: [facility] [place] [facility] [address] [facility] [address] [facility] CBC LEUKOCYTES [#/VOLUME] IN BLOOD BY AUTOMATED COUNT 6.11 10*3/u L 4.50 - 11.00 07/15 Specimen Type: BLOOD No comment entered. Ordering Provider: INGE KNIGHT Report Released Date/Time: Jun 12, 2024 08:46 AM Reporting Lab: [facility] [place] [facility] [address] [facility] [address] Performing Lab: [facility] [facility] [address] [facility] [address] [facility] [place] CBC ERYTHROCYTE S [#/VOLUME] IN BLOOD BY AUTOMATED COUNT 4.31 10*6/u L 4.23 - 5.66 07/15 Specimen Type: BLOOD No comment entered. Ordering Provider: INGE KNIGHT Report Released Date/Time: Jun 12, 2024 08:46 AM Reporting Lab: [facility] [address] [facility] [address] Performing Lab: [facility] [place] [facility] [address] [facility] [address] [facility] [place] CBC HEMOGLOBIN [MASS/VOLUM E] IN BLOOD 13.6 g/dL 12.8 - 17 07/15 Specimen Type: BLOOD No comment entered. Ordering Provider: INGE KNIGHT Report Released Date/Time: Jun 12, 2024 08:46 AM Reporting Lab: [facility] [place] [facility] [address] [facility] [address] Performing Lab: [facility] [place] [facility] [address] [facility] [address] [facility] [place] CBC HEMATOCRIT [VOLUME FRACTION] OF BLOOD BY AUTOMATED COUNT 40.2 39.2 - 50.4 07/15 Specimen Type: BLOOD No comment entered. Ordering Provider: INGE KNIGHT Report Released Date/Time: Jun 12, 2024 08:46 AM Reporting Lab: [facility] [place] [facility] [address] [facility] [address] Performing Lab: [facility] [place] [facility] [address] [facility] [address] [facility] [place] CBC MCV [ENTITIC VOLUME] BY AUTOMATED COUNT 93.3 fL 82 - 99 07/15 Specimen Type: BLOOD No comment entered. Ordering Provider: INGE KNIGHT Report Released Date/Time: Jun 12, 2024 08:46 AM Reporting Lab: [facility] [place] [facility] [address] [facility] [address] Performing Lab: [facility] [address] [facility] [address] [facility] CBC MCHC [MASS/VOLUM E] BY AUTOMATED COUNT 33.8 g/dL 30.8 - 35.1 07/15 Specimen Type: BLOOD No comment entered. Ordering Provider: INGE KNIGHT Report Released Date/Time: Jun 12, 2024 08:46 AM Reporting Lab: [facility] [address] [facility] [address] Performing Lab: [facility] [place] [facility] [address] [facility] [address] [facility] [place] CBC PLATELETS [#/VOLUME] IN BLOOD BY AUTOMATED COUNT 247 10*3/u L 140 - 360 07/15 Specimen Type: BLOOD No comment entered. Ordering Provider: INGE KNIGHT Report Released Date/Time: Jun 12, 2024 08:46 AM Reporting Lab: [facility] [place] [facility] [address] [facility] [address] Performing Lab: [facility] [place] [facility] [address] [facility] [address] [facility] [facility] [place] CBC ERYTHROCYTE DISTRIBUTIO N WIDTH [RATIO] BY AUTOMATED COUNT 13.4 12.0 - 16.0 07/15 Specimen Type: BLOOD No comment entered. Ordering Provider: INGE KNIGHT Report Released Date/Time: Jun 12, 2024 08:46 AM Reporting Lab: [facility] [place] [facility] [address] [facility] [address] Performing Lab: [facility] [place] [facility] [address] [facility] [address] [facility] [facility] CBC MCH [ENTITIC MASS] BY AUTOMATED COUNT 31.6 pg 26.2 - 32.6 07/15 Specimen Type: BLOOD No comment entered. Ordering Provider: INGE KNIGHT Report Released Date/Time: Jun 12, 2024 08:46 AM Reporting Lab: [facility] [place] [facility] [address] [facility] [address] Performing Lab: [facility] [address] [facility] [address] [facility] BASIC METABOLIC PANEL (non-fast ing) UREA NITROGEN [MASS/VOLUM E] IN SERUM OR PLASMA 11 mg/dL 7 - 25 07/15 Specimen Type: SERUM No comment entered. Ordering Provider: INGE KNIGHT Report Released Date/Time: Jun 12, 2024 08:46 AM Reporting Lab: [facility] [address] [facility] [address] Performing Lab: [facility] [address] [address] [facility] BASIC METABOLIC PANEL (non-fast ing) GLUCOSE [MASS/VOLUM E] IN SERUM OR PLASMA 101 mg/dL 65 - 100 07/15 H Specimen Type: SERUM No comment entered. Ordering Provider: INGE KNIGHT Report Released Date/Time: Jun 12, 2024 08:46 AM Reporting Lab: [facility] [address] [address] Performing Lab: [facility] [address] [address] [facility] BASIC METABOLIC PANEL (non-fast ing) SODIUM [MOLES/VOLU ME] IN SERUM OR PLASMA 141 mmol/L 135 - 145 07/15 Specimen Type: SERUM No comment entered. Ordering Provider: INGE KNIGHT Report Released Date/Time: Jun 12, 2024 08:46 AM Reporting Lab: [facility] [address] [facility] [address] Performing Lab: [facility] [address] [facility] BASIC METABOLIC PANEL (non-fast ing) POTASSIUM [MOLES/VOLU ME] IN SERUM OR PLASMA 4.7 mmol/L 3.5 - 5.0 07/15 Specimen Type: SERUM No comment entered. Ordering Provider: INGE KNIGHT Report Released Date/Time: Jun 12, 2024 08:46 AM Reporting Lab: [facility] [place] [facility] [address] [facility] [address] Performing Lab: [facility] [place] [facility] [address] [facility] [address] [facility] BASIC METABOLIC PANEL (non-fast ing) CHLORIDE [MOLES/VOLU ME] IN SERUM OR PLASMA 107 mmol/L 100 - 110 07/15 Specimen Type: SERUM No comment entered. Ordering Provider: INGE KNIGHT Report Released Date/Time: Jun 12, 2024 08:46 AM Reporting Lab: [facility] [place] [facility] [place] [address] [facility] [phone] Performing Lab: [facility] [place] [facility] [place] [address] [facility] [phone] [facility] [place] [facility] BASIC METABOLIC PANEL (non-fast ing) CARBON DIOXIDE, TOTAL [MOLES/VOLU ME] IN SERUM OR PLASMA 27 meq/L 20 - 30 07/15 Specimen Type: SERUM No comment entered. Ordering Provider: INGE KNIGHT Report Released Date/Time: Jun 12, 2024 08:46 AM Reporting Lab: [facility] [place] [facility] [place] [address] [facility] [phone] Performing Lab: [facility] [place] [facility] [place] [address] [facility] [phone] [facility] BASIC METABOLIC PANEL (non-fast ing) CREATININE [MASS/VOLUM E] IN SERUM OR PLASMA 1.06 mg/dL 0.50 - 1.40 07/15 Specimen Type: SERUM No comment entered. Ordering Provider: INGE KNIGHT Report Released Date/Time: Jun 12, 2024 08:46 AM Reporting Lab: [facility] [place] [facility] [place] [address] [facility] [phone] Performing Lab: [facility] [place] [address] [address] [facility] [place] [facility] BASIC METABOLIC PANEL (non-fast ing) GLOMERULAR FILTRATION RATE/1.73 SQ M.PREDICTED [VOLUME RATE/AREA] IN SERUM, PLASMA OR BLOOD BY CREATININE- BASED FORMULA (CKD-EPI 2020) 68 mL/min 60 07/15 Specimen Type: SERUM No comment entered. Ordering Provider: INGE KNIGHT Report Released Date/Time: Jun 12, 2024 08:46 AM Reporting [facility] [address] [address] Performing Lab: [facility] [address] [phone] [facility] BASIC METABOLIC PANEL (non-fast ing) UREA NITROGEN [MASS/VOLUM E] IN SERUM OR PLASMA 9 mg/dL 7 - 25 01/29 Specimen Type: SERUM No comment entered. Ordering Provider: ANTONY CROWE Report Released Date/Time: December 26, 2023 08:29 AM Reporting Lab: [address] [address] Performing Lab: [address] [address] [facility] BASIC METABOLIC PANEL (non-fast ing) GLUCOSE [MASS/VOLUM E] IN SERUM OR PLASMA 109 mg/dL 65 - 100 01/29 H Specimen Type: SERUM No comment entered. Ordering Provider: ANTONY CROWE Report Released Date/Time: December 26, 2023 08:29 AM Reporting [facility]: [facility] [address] [address] Per[facility]: [facility] [address] [address] [facility] BASIC METABOLIC PANEL (non-fast ing) SODIUM [MOLES/VOLU ME] IN SERUM OR PLASMA 136 mmol/L 135 - 145 01/29 Specimen Type: SERUM No comment entered. Ordering Provider: ANTONY CROWE Report Released Date/Time: December 26, 2023 08:29 AM Reporting Lab: [facility] [address] [address] Performing Lab: [facility] [place] [facility] [place] [address] [facility] [address] [facility] BASIC METABOLIC PANEL (non-fast ing) POTASSIUM [MOLES/VOLU ME] IN SERUM OR PLASMA 4.1 mmol/L 3.5 - 5.0 01/29 Specimen Type: SERUM No comment entered. Ordering Provider: ANTONY CROWE Report Released Date/Time: December 26, 2023 08:29 AM Reporting Lab: [facility] [place] [facility] [place] [address] [facility] [address] Performing Lab: [facility] [address] [facility] BASIC METABOLIC PANEL (non-fast ing) CHLORIDE [MOLES/VOLU ME] IN SERUM OR PLASMA 106 mmol/L 100 - 110 01/29 Specimen Type: SERUM No comment entered. Ordering Provider: ANTONY CROWE Report Released Date/Time: December 26, 2023 08:29 AM Reporting Lab: [facility] [place] [address] [facility] [address] Performing Lab: [facility] [address] [address] [facility] BASIC METABOLIC PANEL (non-fast ing) CARBON DIOXIDE, TOTAL [MOLES/VOLU ME] IN SERUM OR PLASMA 24 meq/L 20 - 30 01/29 Specimen Type: SERUM No comment entered. Ordering Provider: ANTONY CROWE Report Released Date/Time: December 26, 2023 08:29 AM Reporting Lab: [facility] [place] [facility] [place] [address] [facility] [address] Performing Lab: [facility] [place] [address] [facility] [address] [facility] BASIC METABOLIC PANEL (non-fast ing) CREATININE [MASS/VOLUM E] IN SERUM OR PLASMA 1.01 mg/dL 0.50 - 1.40 01/29 Specimen Type: SERUM No comment entered. Ordering Provider: ANTONY CROWE Report Released Date/Time: December 26, 2023 08:29 AM Reporting Lab: [facility] [place] [facility] [place] [address] [facility] [address] Performing Lab: [facility] [place] [facility] [place] [address] [facility] [address] [facility] [place] [facility] BASIC METABOLIC PANEL (non-fast ing) GLOMERULAR FILTRATION RATE/1.73 SQ M.PREDICTED [VOLUME RATE/AREA] IN SERUM, PLASMA OR BLOOD BY CREATININE- BASED FORMULA (CKD-EPI 2020) 72 mL/min 60 01/29 Specimen Type: SERUM No comment entered. Ordering Provider: ANTONY CROWE Report Released Date/Time: December 26, 2023 08:29 AM Reporting Lab: [facility] [place] [facility] [place] [address] [facility] [address] Performing Lab: [facility] [address] [facility] [address] [facility] LIPID PANEL, NON FASTING CHOLESTEROL [MASS/VOLUM E] IN SERUM OR PLASMA 91 mg/dL 01/29 Specimen Type: SERUM No comment entered. Ordering Provider: ANTONY CROWE Report Released Date/Time: December 26, 2023 08:29 AM Reporting Lab: [facility] [place] [facility] [place] [address] [facility] [address] Performing Lab: [facility] [place] [address] [facility] [address] [facility] LIPID PANEL, NON FASTING TRIGLYCERID E [MASS/VOLUM E] IN SERUM OR PLASMA 65 mg/dL 0 - 150 01/29 Specimen Type: SERUM No comment entered. Ordering Provider: ANTONY CROWE Report Released Date/Time: December 26, 2023 08:29 AM Reporting Lab: [facility] [place] [facility] [place] [address] [facility] [address] Performing Lab: [facility] [place] [address] [facility] [address] [facility] LIPID PANEL, NON FASTING CHOLESTEROL IN LDL [MASS/VOLUM E] IN SERUM OR PLASMA BY CALCULATION 49 mg/dL 0 - 129 01/29 Specimen Type: SERUM No comment entered. Ordering Provider: ANTONY CROWE Report Released Date/Time: December 26, 2023 08:29 AM Reporting Lab: [facility] [place] [facility] [place] [address] [facility] [address] Performing Lab: [facility] [address] [facility] [address] [facility] [place] [facility] LIPID PANEL, NON FASTING CHOLESTEROL .TOTAL/CHOL ESTEROL IN HDL [MASS RATIO] IN SERUM OR PLASMA 3.1 01/29 Specimen Type: SERUM No comment entered. Ordering Provider: ANTONY CROWE Report Released Date/Time: December 26, 2023 08:29 AM Reporting Lab: [facility] [place] [facility] [place] [address] [facility] [address] Performing Lab: [facility] [place] [address] [address] [facility] LIPID PANEL, NON FASTING CHOLESTEROL IN HDL [MASS/VOLUM E] IN SERUM OR PLASMA 29 mg/dL 40 - 60 01/29 L Specimen Type: SERUM No comment entered. Ordering Provider: ANTONY CROWE Report Released Date/Time: December 26, 2023 08:29 AM Reporting Lab: [facility] [place] [address] [address] Performing Lab: [facility] [place] [address] [address] [facility] [place] [facility] CREATININ E (eGFR 2020) CREATININE [MASS/VOLUM E] IN SERUM OR PLASMA 0.99 mg/dL 0.50 - 1.40 01/29 Specimen Type: SERUM No comment entered. Ordering Provider: Tricia ALFARO Report Released Date/Time: Jan 28, 2024 02:54 PM Reporting Lab: [facility] [place] [address] [address] Performing Lab: [facility] [place] [address] [address] [facility] [place] [facility] CREATININ E (eGFR 2020) GLOMERULAR FILTRATION RATE/1.73 SQ M.PREDICTED [VOLUME RATE/AREA] IN SERUM, PLASMA OR BLOOD BY CREATININE- BASED FORMULA (CKD-EPI 2020) 74 mL/min 60 01/29 Specimen Type: SERUM No comment entered. Ordering Provider: Tricia ALFARO Report Released Date/Time: Jan 28, 2024 02:54 PM Reporting Lab: [facility] [place] [facility] [place] [address] [facility] [address] Performing Lab: [facility] [place] [facility] [place] [address] [facility] [address] [facility] LIVER FUNCTION PROTEIN [MASS/VOLUM E] IN SERUM OR PLASMA 6.9 g/dL 6.0 - 8.3 06/29 Specimen Type: SERUM No comment entered. Ordering Provider: PAMELA PATHAK Report Released Date/Time: Jun 14, 2023 04:04 PM Reporting Lab: [facility] [place] [facility] [place] [address] [facility] [address] Performing Lab: [facility] [place] [facility] [place] [address] [facility] [address] [facility] [place] [facility] LIVER FUNCTION ALBUMIN [MASS/VOLUM E] IN SERUM OR PLASMA 3.7 g/dL 3.5 - 5.0 06/29 Specimen Type: SERUM No comment entered. Ordering Provider: PAMELA PATHAK Report Released Date/Time: Jun 14, 2023 04:04 PM Reporting Lab: [facility] [place] [facility] [place] [address] [facility] [address] Performing Lab: [facility] [place] [facility] [place] [address] [facility] [address] [facility] [place] [facility] LIVER FUNCTION ALKALINE PHOSPHATASE [ENZYMATIC ACTIVITY/VO LUME] IN SERUM OR PLASMA 110 U/L 40 - 150 06/29 Specimen Type: SERUM No comment entered. Ordering Provider: PAMELA PATHAK Report Released Date/Time: Jun 14, 2023 04:04 PM Reporting Lab: [facility] [place] [facility] [place] [address] [facility] [address] Performing Lab: [facility] [place] [facility] [address] [facility] [address] [facility] [place] [facility] [place] LIVER FUNCTION ASPARTATE AMINOTRANSF ERASE [ENZYMATIC ACTIVITY/VO LUME] IN SERUM OR PLASMA 24 U/L 5 - 34 06/29 Specimen Type: SERUM No comment entered. Ordering Provider: PAMELA PATHAK Report Released Date/Time: Jun 14, 2023 04:04 PM Reporting Lab: [facility] [place] [facility] [place] [address] [facility] [address] Performing Lab: [facility] [place] [facility] [place] [address] [facility] [address] [facility] [place] [facility] [place] LIVER FUNCTION ALANINE AMINOTRANSF ERASE [ENZYMATIC ACTIVITY/VO LUME] IN SERUM OR PLASMA 20 U/L 06/29 Specimen Type: SERUM No comment entered. Ordering Provider: PAMELA PATHAK Report Released Date/Time: Jun 14, 2023 04:04 PM Reporting Lab: [facility] [place] [facility] [place] [address] [facility] [address] Performing Lab: [facility] [place] [facility] [place] [address] [facility] [address] [facility] [place] [facility] [place] LIVER FUNCTION BILIRUBIN.T OTAL [MASS/VOLUM E] IN SERUM OR PLASMA 0.8 mg/dL 0.2 - 1.2 06/29 Specimen Type: SERUM No comment entered. Ordering Provider: PAMELA PATHAK Report Released Date/Time: Jun 14, 2023 04:04 PM Reporting Lab: [facility] [place] [facility] [place] [address] [facility] [address] Performing Lab: [facility] [place] [facility] [place] [address] [facility] [address] [facility] [place] [facility] [place] LIPID PANEL FASTING CHOLESTEROL [MASS/VOLUM E] IN SERUM OR PLASMA 118 mg/dL 06/29 Specimen Type: SERUM No comment entered. Ordering Provider: AHMED,MOHAM MED JAWED Report Released Date/Time: Jun 14, 2023 04:04 PM Reporting Lab: [facility] [place] [facility] [place] [address] [facility] [address] Performing Lab: [facility] [place] [facility] [place] [address] [facility] [address] [facility] [place] [facility] [place] LIPID PANEL FASTING TRIGLYCERID E [MASS/VOLUM E] IN SERUM OR PLASMA 73 mg/dL 0 - 150 06/29 Specimen Type: SERUM No comment entered. Ordering Provider: PAMELA PATHAK [employer] Report Released Date/Time: Jun 14, 2023 04:04 PM Reporting Lab: [facility] [place] [facility] [place] [address] [facility] [address] Performing Lab: [facility] [place] [facility] [place] [address] [facility] [address] [facility] [place] [facility] LIPID PANEL FASTING CHOLESTEROL IN LDL [MASS/VOLUM E] IN SERUM OR PLASMA BY CALCULATION 69 mg/dL 0 - 129 06/29 Specimen Type: SERUM No comment entered. Ordering Provider: PAMELA PATHAK Report Released Date/Time: Jun 14, 2023 04:04 PM Reporting Lab: [facility] [place] [facility] [place] [address] [facility] [address] Performing Lab: [facility] [place] [facility] [place] [address] [facility] [address] [facility] [place] [facility] LIPID PANEL FASTING CHOLESTEROL .TOTAL/CHOL ESTEROL IN HDL [MASS RATIO] IN SERUM OR PLASMA 3.5 06/29 Specimen Type: SERUM No comment entered. Ordering Provider: PAMELA PATHAK [employer] Report Released Date/Time: Jun 14, 2023 04:04 PM Reporting Lab: [facility] [place] [facility] [place] [address] [facility] [address] Performing Lab: [facility] [place] [facility] [place] [address] [facility] [address] [facility] [place] [facility] LIPID PANEL FASTING CHOLESTEROL IN HDL [MASS/VOLUM E] IN SERUM OR PLASMA 34 mg/dL 40 - 60 11/24 /2023 L Specimen Type: SERUM No comment entered. Ordering Provider: PAMELA PATHAK Report Released Date/Time: Jun 14, 2023 04:04 PM Reporting Lab: [facility] [place] [facility] [address] [facility] [address] Performing Lab: [facility] [place] [facility] [address] [facility] [address] [facility] [place] [facility] [place] CBC LEUKOCYTES [#/VOLUME] IN BLOOD BY AUTOMATED COUNT 6.36 10*3/u L 4.50 - 11.00 06/29 Specimen Type: BLOOD No comment entered. Ordering Provider: PAMELA PATHAK Report Released Date/Time: Jun 14, 2023 04:04 PM Reporting Lab: [facility] [place] [facility] [address] [facility] [address] Performing Lab: [facility] [place] [facility] [place] [address] [facility] [address] [facility] [place] [facility] [place] [facility] ERYTHROCYTE S [#/VOLUME] IN BLOOD BY AUTOMATED COUNT 4.32 10*6/u L 4.23 - 5.66 06/29 Specimen Type: BLOOD No comment entered. Ordering Provider: PAMELA PATHAK Report Released Date/Time: Jun 14, 2023 04:04 PM Reporting Lab: [facility] [place] [facility] [place] [address] [facility] [address] Performing Lab: [facility] [place] [facility] [place] [address] [facility] [address] [facility] [place] [facility] [place] [facility] HEMOGLOBIN [MASS/VOLUM E] IN BLOOD 13.2 g/dL 12.8 - 17 06/29 Specimen Type: BLOOD No comment entered. Ordering Provider: PAMELA PATHAK Report Released Date/Time: Jun 14, 2023 04:04 PM Reporting Lab: [facility] [place] [facility] [place] [address] [facility] [address] Performing Lab: [facility] [place] [address] [address] [facility] [place] [facility] [place] [facility] HEMATOCRIT [VOLUME FRACTION] OF BLOOD BY AUTOMATED COUNT 40.7 39.2 - 50.4 06/29 Specimen Type: BLOOD No comment entered. Ordering Provider: PAMELA PATHAK Report Released Date/Time: Jun 14, 2023 04:04 PM Reporting Lab: [facility] [place] [facility] [place] [address] [facility] [address] Performing Lab: [facility] [place] [facility] [place] [address] [facility] [address] [facility] [place] [facility] [place] [facility] MCV [ENTITIC VOLUME] BY AUTOMATED COUNT 94.2 fL 82 - 99 06/29 Specimen Type: BLOOD No comment entered. Ordering Provider: PAMELA PATHAK Report Released Date/Time: Jun 14, 2023 04:04 PM Reporting Lab: [facility] [place] [facility] [place] [address] [facility] [address] Performing Lab: [facility] [place] [facility] [place] [address] [facility] [address] [facility] [place] [facility] [place] CBC MCHC [MASS/VOLUM E] BY AUTOMATED COUNT 32.4 g/dL 30.8 - 35.1 06/29 Specimen Type: BLOOD No comment entered. Ordering Provider: PAMELA PATHAK Report Released Date/Time: Jun 14, 2023 04:04 PM Reporting Lab: [facility] [place] [facility] [place] [address] [facility] [address] Performing Lab: [facility] [place] [facility] [place] [address] [facility] [address] [facility] [place] [facility] [place] CBC PLATELETS [#/VOLUME] IN BLOOD BY AUTOMATED COUNT 222 10*3/u L 140 - 360 06/29 Specimen Type: BLOOD No comment entered. Ordering Provider: PAMELA PATHAK Report Released Date/Time: Jun 14, 2023 04:04 PM Reporting Lab: [facility] [place] [facility] [place] [address] [facility] [address] Performing Lab: [facility] [place] [facility] [place] [address] [facility] [address] [facility] [place] [facility] [place] CBC ERYTHROCYTE DISTRIBUTIO N WIDTH [RATIO] BY AUTOMATED COUNT 13.1 12.0 - 16.0 06/29 Specimen Type: BLOOD No comment entered. Ordering Provider: PAMELA PATHAK Report Released Date/Time: Jun 14, 2023 04:04 PM Reporting Lab: [facility] [place] [facility] [place] [address] [facility] [address] Performing Lab: [facility] [place] [facility] [place] [address] [facility] [address] [facility] [place] [facility] [place] CBC MCH [ENTITIC MASS] BY AUTOMATED COUNT 30.6 pg 26.2 - 32.6 06/29 Specimen Type: BLOOD No comment entered. Ordering Provider: PAMELA PATHAK Report Released Date/Time: Jun 14, 2023 04:04 PM Reporting Lab: [facility] [place] [facility] [place] [address] [facility] [address] Performing Lab: [facility] [place] [facility] [place] [address] [facility] [address] [facility] [place] [facility] [place] Vital Signs Combined list of inpatient and outpatient Vital Signs from Department of Defense and Veterans Affairs, ranging from 12 months to all on record, depending upon the facility. Vital Sign Value Date Comments Source SYSTOLIC BLOOD PRESSURE 130 08/04/20 24 09:15:52 [facility] [place] [facility] [place] DIASTOLIC BLOOD PRESSURE 74 08/04/ 024 09:15:52 [facility] [place] [facility] [place] PULSE OXIMETRY 95 08/04/2024 09:15:52 [facility] [place] WEIGHT 174.6 08/04/2024 09:15:52 [facility] [place] [facility] BMI 27kg/m2 08/04/2024 09:15:52 [facility] [place] [facility] TEMPERATURE 97.3 08/04/2024 09:15:52 [facility] [place] [facility] PULSE 63 08/04/2024 09:15:52 [facility] [place] [facility] RESPIRATION 18 08/04/2024 09:15:52 [facility] [place] [facility] SYSTOLIC BLOOD PRESSURE 136 06/23/20 24 11:41:02 [facility] [place] [facility] DIASTOLIC BLOOD PRESSURE 71 024 11:41:02 [facility] [place] [facility] PULSE OXIMETRY 93 06/23/2024 11:41:02 [facility] [place] TEMPERATURE 97.8 06/23/2024 11:41:02 [facility] [place] [facility] PULSE 63 06/23/2024 11:41:02 [facility] [place] RESPIRATION 16 06/23/2024 11:41:02 [facility] [place] [facility] SYSTOLIC BLOOD PRESSURE 160 02/11/20 24 08:33:01 [facility] [place] DIASTOLIC BLOOD PRESSURE 75 024 08:33:01 [facility] [place] PULSE OXIMETRY 93 02/11/2024 08:33:01 [facility] WEIGHT 174 02/11/2024 08:33:01 [facility] BMI 27kg/m2 02/11/2024 08:33:01 [facility] PAIN 6 02/11/2024 08:33:01 [facility] [place] TEMPERATURE 96.2 02/11/2024 08:33:01 [facility] [place] PULSE 63 02/11/2024 08:33:01 [facility] [place] RESPIRATION 16 02/11/2024 08:33:01 [facility] [place] [facility] SYSTOLIC BLOOD PRESSURE 162 01/08/20 24 10:03:24 [facility] [place] DIASTOLIC BLOOD PRESSURE 62 024 10:03:24 [facility] [place] [facility] PULSE OXIMETRY 93 01/08/2024 10:03:24 [facility] WEIGHT 178 01/08/2024 10:03:24 [facility] BMI 27kg/m2 01/08/2024 10:03:24 [facility] PAIN 5 01/08/2024 10:03:24 [facility] [place] TEMPERATURE 98.1 01/08/2024 10:03:24 [facility] PULSE 63 01/08/2024 10:03:24 [facility] [place] RESPIRATION 16 01/08/2024 10:03:24 [facility] [place] [facility] SYSTOLIC BLOOD PRESSURE 139 12/19/19 24 10:35:32 [facility] [place] [facility] DIASTOLIC BLOOD PRESSURE 78 024 10:35:32 [facility] [place] [facility] PULSE OXIMETRY 94 12/19/2023 10:35:32 [facility] PAIN 4 12/19/2023 10:35:32 [facility] TEMPERATURE 98.1 12/19/2023 10:35:32 [facility] PULSE 72 12/19/2023 10:35:32 [facility] RESPIRATION 16 12/19/2023 10:35:32 [facility] Encounters Combined list of: 1) Encounters from [facility] facilities going back up to thelast 18 months. 2) Encounters from the Department of Defense facilities going back up to 280 months. Location Location Details Encounter Type Encounter Number Reason For Visit Attending Provider ADM Date DC Date Status Disposition Source [facility] Outpatient Encounter [id number] 02/05 [facility] Outpatient [facility]counter [id number] 02/12 [facility] Outpatient [facility]counter [id number] 02/12 [facility] Outpatient [facility]counter [id number] 02/13 [facility] Outpatient [facility]counter [id number] 02/13 [facility] Out[facility]counter [id number] 02/19 [facility] Out[facility]counter [id number] 03/02 [facility] Out[facility]counter [id number] 03/15 [facility] Out[facility]counter [id number] 03/22 [facility] Out[facility]counter [id number] 05/07 [facility] Out[facility]counter [id number] 05/23 [facility] Out[facility] Encounter [id number] 05/24 [facility] OFF/OP EST DECEMBER X REQ PHY/QHP [id number] Diagnos is: ICD-10- CM Z23 Encount er for immuniz ation<b r/> AUREA MORTENSEN P 05/29 [facility] Out[facility] Encounter [id number] 05/30 [facility] OFFICE O/P EST SF 10-19 MIN [id number] Diagnos is: ICD-10- CM L60.3 Nail dystrop hy
Yasmin PABON 06/01 [facility] Out[facility] Encounter [id number] 06/05 [facility] Outpatient Encounter [id number] Diagnos is: ICD-10- CM Z71.9 [employer] ing, 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< br/> EMILY KNIGHT 06/20 [facility] Out[facility] Encounter [id number] 06/26 [facility] Out[facility] Encounter [id number] 06/27 [facility] OFFICE O/P EST MOD 30-39 MIN [id number] Diagnos is: ICD-10- CM 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< br/> YASIR PATHAK MMED JAWED 07/04 [facility]counter [id number] 07/10 [facility] [place] EXTENDED VISUAL FIELD XM [id number] Diagnos is: ICD-10- CM 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, bilater al, mild stage<b r/> ALTHEA,AL JASON [facility] [place] [facility]MP[facility] OPHTH IMG OPTIC NERVE [id number] Diagnos is: ICD-10- CM 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, bilater al, mild stage<b r/> ALTHEA,AL JASON [facility] [place] O/P EST MOD 30 MIN [id number] Diagnos is: ICD-10- CM 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, bilater al, mild stage<b r/> ALTHEA,AL JASON [facility] Outpatient Encounter [id number] 10/04 [facility] Out[facility] Encounter [id number] 10/04 [facility] Out[facility] Encounter [id number] 10/04 [facility] Out[facility] Encounter [id number] 10/09 [facility] Out[facility] Encounter [id number] 10/23 [facility] OFFICE O/P EST LOW 20 MIN [id number] Diagnos is: ICD-10- CM L60.3 Nail dystrop hy
LUCILA GARCIA D 10/28 [facility] [place] Encounter [id number] 11/25 [facility] OFFICE O/P EST MOD 30 MIN [id number] Diagnos is: ICD-10- CM L57.0 Actinic keratos is
ODALYS ALFARO 12/03 [facility] OFFICE O/P EST MOD 30 MIN [id number] Diagnos is: ICD-10- CM L57.0 Actinic keratos is
ODALYS ALFARO 12/10 [facility] [place] OFF/OP EST MAY X REQ PHY/QHP [id number] Diagnos is: ICD-10- CM Z04.9 Encount er for examina tion and observa tion for unsp reason< br/> Jory KING 12/18 [facility] OFFICE O/P EST LOW 20 MIN [id number] Diagnos is: ICD-10- CM M54.2 Cervica lgia
JESSICA GARIBAY 12/18 [facility] Out[facility] Encounter [id number] 12/31 [facility] Outpatient Encounter [id number] 01/03 [facility] OFFICE O/P EST MOD 30 MIN [id number] Diagnos is: ICD-10- CM Z98.890 Other specifi ed postpro cedural states< br/> FURCOLO,TI NA 01/07 [facility] [place] O/P EST MOD 30 MIN [id number] Diagnos is: ICD-10- CM R22.1 Localiz ed swellin g, mass and lump, neck
ODALYS ALFARO 01/07 [facility] Encounter [id number] 01/08 [facility] Out[facility] Encounter [id number] 01/27 [facility] Outpatient Encounter [id number] Diagnos is: ICD-10- CM L72.0 Epiderm al cyst
ODALYS ALFARO 02/05 [facility] [place] O/P EST MOD 30 MIN [id number] Diagnos is: ICD-10- CM H26.8 Other specifi ed catarac t
FURCOLO,TI NA 02/10 [facility] OFFICE O/P EST SF 10 MIN [id number] Diagnos is: ICD-10- CM L60.3 Nail dystrop hy
FOSTERLUCILA RLES D 03/04 [facility] Outpatient Encounter [id number] [facility] Outpatient Encounter [id number] [facility] Out[facility] Encounter [id number] 03/11 [facility] Outpatient Encounter [id number] [facility] Outpatient Encounter [id number] 03/21 [facility] Out[facility] Encounter [id number] 03/25 [facility] Outpatient Encounter [id number] 04/17 [facility] Out[facility] Encounter [id number] 04/21 [facility] Outpatient Encounter [id number] 04/22 [facility] FIT SPECTACLES MONOFOCAL [id number] Diagnos is: ICD-10- CM Z46.0 Encount er for fit/adj st of spectac les and contact lenses< br/> MANUELEMILY NOVOA 04/23 [facility] OFF/OP EST DECEMBER X REQ PHY/QHP [id number] Diagnos is: ICD-10- CM Z23 Encount er for immuniz ation<b r/> MARIANELA WHITFIELD E 04/24 [facility] Out[facility] Encounter [id number] 05/02 [facility] Outpatient Encounter [id number] [facility] IMMUNIZATI ON ADMIN [id number] FURDESTI NA 05/13 [facility] Outpatient Encounter [id number] SEBASTIENTI NA 05/13 [facility] Outpatient Encounter [id number] 06/09 [facility] Outpatient Encounter [id number] 06/11 [facility] Outpatient Encounter [id number] 06/13 [facility] Outpatient Encounter [id number] 06/18 [facility] Out[facility] Encounter [id number] 06/23 [facility] OFFICE O/P EST MOD 30 MIN [id number] Diagnos is: ICD-10- CM I65.29 Occlusi on and stenosi s of 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 carotid artery< br/> FURCOSHANIQUE,TI NA 06/23 [facility] Outpatient Encounter [id number] 06/24 [facility] Out[facility] Encounter [id number] 06/30 [facility] Outpatient Encounter [id number] 07/16 [facility] Out[facility] Encounter [id number] 07/16 [facility] Out[facility]counter [id number] 07/21 [facility] [place] O/P EST MOD 30 MIN [id number] Diagnos is: ICD-10- CM 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 Social History Type Response Date Comment Sourc e Tobacco smoking status NHIS VA-TOBACCO FORMER USER 01/08/2024 [facility] [place] History of tobacco use MD-TOBACCO QUIT 5 TO < 15 YRS 01/08/2024 [facility] History [facility] tobacco use VA-TOBACCO FORMER USER 05/03/2022 [facility] [place] History [facility] tobacco use VA-TOBACCO FORMER USER 05/17/2021 [facility] [place] History of tobacco use MD-TOBACCO FORMER USER 05/28/2020 [facility] [place] [facility] [place] History of tobacco use MD-TOBACCO QUIT 1 TO < 5 YRS 10/04/2018 [facility] [place] [facility] [place] History of tobacco use CURRENT SMOKER 01/24/2018 [facility] [place] [facility] [place] Plan of Care List of future care activities from Department of Veterans Affairs facilities. Additional future care activities may be listed in the Assessment and Plan section. Date/Time Care Activity Care Activity Detail Facili ty 08/12/2024 AMBULATORY - MEDICINE AMBULATORY - MEDICI NE [facility] [facility] [place] 08/14/2024 AMBULATORY - MEDICINE AMBULATORY - MEDICI NE [facility] [place] [facility] [place] 12/11/2024 AMBULATORY - MEDICINE AMBULATORY - MEDICI NE [facility] [place] [facility] [place] 12[facility]11/2024 AMBULATORY - MEDICINE AMBULATORY - MEDICI NE [facility] [place] [facility] [place] 06/23/2024 Consult Order [facility]P HYSICAL THERAPY Cons Business Administration Program Chair's Choice [facility] [place] [facility] [place]
--- OUTSIDE RECORDS SUMMARY | 2024-08-07 11:25 | XMS_ITS | Encounter Summary ---
Author Name [facility] [place] [place] [facility] [place] Address [address] [place] [id number] Care Team Providers Care Qc Scientist Name Role Phone RUBI CROWE Primary Care Provider Unavailradha schuler Insurance Providers: All historical and current Section Date Range: From patient's date of to the date document was created. This section includes the names of all active insurance providers for the patient. Insurance Provider Type of Coverage Plan Name Start of Policy Coverage End of Policy Coverage Group Number Member ID Insurance Provider's Telephone Number Policy Gonzalez's Name Patient's Relationship to Policy Gonzalez ANTHEM MEDICARE SUPPLEMEN [place] PSUED O MEDEX BRONZ E Jun 06, 2007 [id number] [phone] NEVIN WILLIAMSON PATIENT ANTHEM BCBS OF [place] MEDICARE SUPPLEMEN [place] PSUED O MEDEX BRONZ E Jun 06, 2007 [id number] [phone] NEVIN WILLIAMSON PATIENT ANTHEM BCBS OF [place] (BLUECARD) MEDICARE SUPPLEMEN [place] PSUED O MEDEX BRONZ E Jun 06, 2007 [id number] [phone] NEVIN WILLIAM[place] SU[place]MEN [place] MEDEX BRONZ E Jun 06, 2007 [id number] [phone] NEVIN WILLIAMSON [place] SUPPLEMEN [place] MEDEX BRONZ E Jun 06, 2007 [id number] NEVIN WILLIAMSON PATIENT MEDICARE (WNR) MEDICARE (M) PART B Jun 06, 2007 PART B [id number] NEVIN WILLIAMSON PATIENT MEDICARE (WNR) MEDICARE (M) PART B Jun 06, 2007 PART B [id number] [phone] NEVIN WILLIAMSON PATIENT MEDICARE (WNR) MEDICARE (M) PART A Jan 04, 2003 PART A [id number] NEVIN WILLIAMSON PATIENT MEDICARE (WNR) MEDICARE (M) PART A Jan 04, 2003 PART A [id number] NEVIN WILLIAMSON PATIENT MEDICARE (WNR) MEDICARE (M) PART B Jan 04, 2003 PART B [id number] NEVIN WILLIAMSON PATIENT MEDICARE (WNR) MEDICARE (M) PART A Jan 04, 2003 PART A [id number] NEVIN WILLIAMSON PATIENT Selected Encounter This section includes the information on record at [place] for the Encounter. Date/Time Encounter Type Encounter Description Reason Pro vider Source Jan 28, 2024 11:44 AM Outpatient Encounter DERMATOLOGY IHE Encounter Template Text not used by [place] Plan of Treatment: Future Appointments (+ 6 months) and Future Tests (+/- 45 days) The Plan of Treatment section includes future care activities for the patient from all [place] treatmentfacilities. This section includes future appointments and future orders which are active, pending or scheduled. Future Appointments This section includes appointments that were scheduled to occur 6 months from the date of the Encounter, up to a maximum of 20 appointments. The data comes from all [place] treatment facilities. Appointment Date/Time Appointment Type Appointme nt Facility Name Jan 31, 2024 02:15 PM AMBULATORY - NONE [facility] [place] [facility] Feb 11, 2024 08:30 AM AMBULATORY - MEDICINE [place] [facility] [place] [facility] Mar 04, 2024 10:30 AM AMBULATORY - MEDICINE [place] [facility] [place] [facility] Apr 17, 2024 10:45 AM AMBULATORY - MEDICINE [place] [facility] [place] [facility] Apr 23, 2024 11:00 AM AMBULATORY - MEDICINE [place] [facility] [place] [facility] Apr 24, 2024 01:45 PM [facility] May 13, 2024 11:00 AM [facility] Jun 23, 2024 10:30 AM [facility] Jun 23, 2024 11:30 AM [facility] [place] [facility] Jun 30, 2024 10:00 AM AMBULATORY - MEDICINE [facility] Lab Results: +/- 30 days of the encounter This section includes the Chemistry and Hematology Lab Results on record with [place] for the patient. Radiology Reports and Pathology Reports are provided separately, in subsequent sections. Lab Results This section contains the Chemistry/Hematology Results that were resulted 30 days before or 30 daysafter the date of the Encounter. Date/Time Source Result Type Result - Unit Interpretation Reference Range Comment Jan 30, 2024 08:55 AM [facility] BASIC METABOLIC PANEL (non-fasting) Specimen Type: SERUM No comment entered. Ordering Provider: RUBI CROWE Report Released Date/Time: December 26, 2023 08:29 AM Reporting Lab: [address] [address] Performing Lab: [address] [address] UREA NITROGEN 9 mg/dL 7-25 GLUCOSE 109 mg/dL H 65-100 SODIUM 136 mmol/L 135-145 POTASSIUM 4.1 mmol/L 3.5-5.0 CHLORIDE 106 mmol/L 100-110 CO2 24 meq/L 20-30 CREATININE, Serum 1.01 mg/dL 0.50-1.40 eGFR(CKD-EPI 2020) 72 mL/min >60 Jan 30, 2024 08:55 AM [facility] LIPID PANEL, NON FASTING Specimen Type: SERUM No comment entered. Ordering Provider: RUBI CROWE Report Released Date/Time: December 26, 2023 08:29 AM Reporting Lab: [address] [address] Performing Lab: [facility] [place] [facility] [address] [facility] [address] CHOLESTEROL 91 mg/dL TRIGLYCERIDE 65 mg/dL 0-150 LDL calculated 49 mg/dL 0-129 CHOL/HDL 3.1 HDL CHOLESTEROL 29 mg/dL L 40-60 Jan 30, 2024 08:55 AM [facility] CREATININE (eGFR 2020) Specimen Type: SERUM No comment entered. Ordering Provider: REGINA ALFARO Report Released Date/Time: Jan 28, 2024 02:54 PM Reporting Lab: [facility] [address] [facility] [address] Performing Lab: [facility] [address] [facility] [address] CREATININE, Serum 0.99 mg/dL 0.50-1.40 eGFR(CKD-EPI 2020) 74 mL/min >60 Social History: Smoking Status (Most current) and Tobacco Use (All prior to encounter date) This section includes the most current, and the historical, smoking and tobacco- related health factors from the [place] facility where the Encounter took place. Current Smoking Status This section includes the most current smoking, or tobacco-related health factor, from the [place] facility where the Encounter took place. Date/Time Current Smoking Status Comment Yessica [facility] Jan 08, 2024 10:00 AM VA-TOBACCO FORMER USER [facility] Tobacco Use History This section includes a history of the smoking, or tobacco-related health factors, that were collected on or before the date of the Encounter. The data comes from the [place] facility where the Encounter took place. Date/Time Smoking Status/Tobac co Use Comment Facility Jan 08, 2024 10:00 AM VA-TOBACCO QUIT 5 TO < 15 YRS [facility] [place] [facility] May 03, 2022 01:00 PM VA-TOBACCO FORMER USER [facility] [place] [facility] May 03, 2022 01:00 PM VA-TOBACCO QUIT 15 YRS OR MORE [facility] May 17, 2021 09:00 AM VA-TOBACCO FORMER USER [facility] [place] [facility] May 17, 2021 09:00 AM VA-TOBACCO QUIT 15 YRS OR MORE [facility] May 28, 2020 03:00 PM VA-TOBACCO FOR[facility] USER [facility] May 28, 2020 03:00 PM VA-TOBACCO QUIT 5 TO < 15 YRS [facility] [place] [facility] Oct 04, 2018 11:04 AM VA-TOBACCO FORMER USER [facility] Oct 04, 2018 11:04 AM VA-TOBACCO QUIT 1 TO < 5 YRS [facility] [place] [facility] Jan 24, 2018 01:52 PM CURRENT SMOKER [facility] Jan 24, 2018 01:52 PM QUIT TOBACCO USE IN PAST YEAR quit ciagarettes 3 months ago [facility] Radiology Reports: +/- 30 days of the encounter Radiology Reports For cases when an order for radiology services may have been completed prior to the date of the Encounter, the report list includes the Radiology Reports that were completed up to 30 days before dateof the Encounter. For cases when an order for radiology services may have been completed after the date of the Encounter, the report list also includes the Radiology Reports that were completed up to30 days after date of the Encounter. The data comes from all [place] treatment facilities. 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 Clinical History: Date Procedure CPT Status Case # 01/21/2024 ULTRASOUND NECK [id number] Verified 29 (THYROID,HEAD,SOFT TISSUE) Two subcutaneous lesions are seen in the region of palpable abnormalities measurin.5 x 2.0 x 0.7 cm hypoechoic and 1.4 x 1.2 x 0.7 cm. The findings are nonspecific and with CT neck with IV contrast should be considered for further evaluation. Report Status: Verified Date Reported: FEB 06, 2024 Date Verified: FEB 06, 2024 Care Rep E-Sig: Report: CT OF THE NECK WITHOUT IV CONTRAST: INDICATION: Follow-up of 01/21/2024 neck ultrasound for two subcutaneous lesions. TECHNIQUE: Volumetric CT acquisition through the neck, with axial, coronal and sagittal reformats, was performed at the local [place] facility. 1130 images were received by the [place] National Teleradiology Program (NTP) for interpretation. RADIATION DOSE (mGy*cm): 363.40 IV CONTRAST: Not administered secondary to reported contrast allergy. COMPARISON: Correlation is made with the soft tissue neck ultrasound on 01/21/2024, chest CT on 10/04/2023, thyroid sonogram on 06/19/2023 [address] chest [address]s on 09/20/2022 and 09/20/2021. FINDINGS: Note should be made that the evaluation of enhancing mucosal pathology and enhancing masses is limited secondary to lack of administration of intravenous contrast. The included intracranial contents are grossly unremarkable. There is minimal mucosal thickening in the partially imaged bilateral ethmoid air cells. The bilateral mastoid air cells are predominantly clear. The partially included orbits are grossly unremarkable. The nasopharynx is unremarkable. The patient is noted to be edentulous. The oral cavity and oropharynx are otherwise grossly unremarkable. The salivary glands, including the parotid glands and submandibular glands, are unremarkable. The larynx is unremarkable. The hypopharynx is unremarkable. Previously noted nodules in the thyroid gland as seen on the sonogram on 06/19/2023 are not well demonstrated on this limited noncontrast CT examination. The unenhanced thyroid gland is otherwise grossly unremarkable in appearance. There is a probable borderline enlarged lymph node measuring approximately 1.6 cm in craniocaudal dimension and 1.4 x 0.9 cm in transaxial dimension either in or immediately adjacent to the inferior aspect of the right parotid gland as seen on axial image #334 of series 5 and sagittal image #65 of series 7. Clinical correlation and follow-up is advised. There are otherwise bilateral scattered lymph nodes seen in the neck none of which are strictly enlarged in size and although they are entirely nonspecific are essentially normal by CT criteria. There is a hypodense subcutaneous lesion abutting the skin surface in the right side of the posterior aspect of the neck subjacent to a radiopaque focus along the skin surface presumably corresponding with a site of palpable abnormality which measures approximately 1.5 x 0.9 cm in transaxial dimension. The internal attenuation is compatible with fluid and although nonspecific this probably reflects a sebaceous cyst. Evaluation however is somewhat limited secondary to lack of administration of intravenous contrast. Inferiorly adjacent to this lesion in the posterior aspect of the right side of the neck, there is a subcutaneous focus of gas with an adjacent linear subcutaneous tract which may reflect recent intervention. A second discrete lesion as suggested on the sonogram on 01/21/2024 is not definitively demonstrated on the current CT examination and possibly may reflect recent intervention. Clinical correlation is recommended. Calcified atherosclerotic plaque is noted in the bilateral carotid bifurcations, left side greater than right, with calcified atherosclerotic plaque also noted in the partially imaged aortic arch and along the course of the imaged portion of the brachiocephalic artery and bilateral common and subclavian arteries. Intracranial atherosclerosis is also noted. Generalized osteopenia and multilevel spinal degenerative change is noted with multilevel disc osteophyte complex formation and facet hypertrophic change which contributes to multilevel neural foraminal stenosis from the C2-C3 through C7-T1 level with multilevel central spinal stenosis also suspected which appears most conspicuous at the C5-C6 and C6-C7 levels. No definite focal suspicious osteoblastic or osteolytic lesion is demonstrated. There is a new or more conspicuous nonspecific pulmonary micronodule in the left upper lobe as seen on axial image #669 of series 5. Follow-up chest CT in one year or earlier should be considered to assess for interval stability depending on clinical risk profile. There are nonspecific pulmonary micronodules in the right upper lobe as seen on axial image #643 and 689 of series 5 which are essentially stable since 09/20/2021. There is a partially imaged nonspecific pulmonary micronodule in the right upper lobe as seen on axial image #841 of series 5 which is essentially stable since 09/20/2021. There is a nonspecific 1.1 x 1.0 cm nodule with central internal calcification as seen on axial image #796 of series 5 which is essentially stable since 09/20/2021. There are nonspecific subpleural pulmonary micronodules in the left upper lobe as seen on axial image #722 of series 5 which are essentially stable since 09/20/2021. There are nonspecific pulmonary micronodules in the left upper lobe as seen on axial images #655 and 666 of series 5 which are essentially stable since 09/20/2021. Mild centrilobular pulmonary emphysema is again noted in the lung apices. There is otherwise minimal biapical pleural-parenchymal scarring. Impression: Subcutaneous lesion in the right-side of the posterior aspect of the neck as noted above is nonspecific but probably reflects a sebaceous cyst although evaluation is somewhat limited secondary to lack of administration of intravenous contrast. An additional lesion noted on the sonogram of 01/21/2024 is not definitively demonstrated on the current examination and may reflect recent intervention. Clinical correlation is recommended. Probable borderline enlarged right-sided intraparotid or periparotid lymph node. Clinical correlation and follow-up is advised. New or more conspicuous nonspecific pulmonary micronodule in the left upper lobe. Follow-up chest CT in one year or earlier should be considered to assess for interval stability depending on clinical risk profile. Other findings and commentary as detailed above. READING PHYSICIAN: Kumar Fonseca -[id number] 02/06/2024 11:16 EDT [facility] National Teleradiology Program [phone] (For Medical Practitioner Use Only) Attention Patients / Veterans: If you have questions or concerns about these test results, please contact your ordering provider or primary care team. 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 TECHNIQUE: Sonographic imaging of the neck was performed at the local [place] facility. 10 images were received by the [place] National Teleradiology Program (NTP) for interpretation. FINDINGS/ Impression: Two subcutaneous lesions are seen in the region of palpable abnormalities measurin.5 x 2.0 x 0.7 cm hypoechoic and 1.4 x 1.2 x 0.7 cm. The findings are nonspecific and with CT neck with IV contrast should be considered for further evaluation. READING PHYSICIAN: Manolo Koo M.D. -[id number] 01/24/2024 15:55 EDT [facility] National Teleradiology Program [phone] (For Medical Practitioner Use Only) Attention Patients / Veterans: If you have questions or concerns about these test results, please contact your ordering provider or primary care team. Primary Diagnostic Code: NO ALERT REQUIRED Primary Interpreting Staff: RADIOLOGY,OUTSIDE SERVICE, Staff Physician / RADIOLOGY,OUTSIDE SERVICE [facility] Encounter Notes: All associated encounter notes This section contains the clinical notes associated to the Encounter. Date/Time Encounter Note(s) Provider Source Jan 28, 2024 11:44 AM TELEPHONE ENCOUNTE R NOTE: LOCAL TITLE: TELEPHONE NOTE/SPECIALTY CLINIC STANDARD TITLE: TELEPHONE ENCOUNTER NOTE DATE OF NOTE: JAN 28, 2024@11:44 ENTRY DATE: JAN 28, 2024@11:44:49 AUTHOR: JAUN YUEN EXP COSIGNER: URGENCY: STATUS: COMPLETED TELEPHONE NOTE/SPECIALTY CLINIC Has ADDENDA [place] called stating he had the ultrasound done on his neck and would like to discuss with Derm provider. Phone confirmed. Please advise /rowena YUEN PREDATOR CONTROL TRAPPER Signed: 01/28/2024 11:46 Receipt Acknowledged By: 01/28/2024 13:40 /catalina/ ODALYS ALFARO DNP, FNP-C NURSE PRACTITIONER 01/29/2024 06:20 /catalina/ JORGE KWON LPN LPN 01/28/2024 ADDENDUM STATUS: COMPLETED Addressed. (See 01/08/24 Derm note addendums) /rowena ALFARO DNP, CLOUD SECURITY ARCHITECT-C NURSE PRACTITIONER Signed: 01/28/2024 14:54 JAUN YUEN [facility]
--- OUTSIDE RECORDS SUMMARY | 2024-08-07 11:25 | XMS_ITS ---
Author Name [facility] Organization [facility] [place] Address [address] [place] [address] Care Team Providers Care Piecer Name Role Phone RUBI CROWE Primary Care [...] O MEDEX BRONZ E Jun 06, 2007 [id number] NEVIN WILLIAMSON PATIENT ANTHEM BCBS OF [place] MEDICARE SUPPLEMEN [place] PSUED O MEDEX BRONZ E Jun 06, 2007 [id number] [phone] NEVIN WILLIAMSON PATIENT ANTHEM BCBS OF [place] (BLUECARD) MEDICARE SUPPLEMEN [place] PSUED O MEDEX BRONZ E Jun 06, 2007 [id number] NEVIN WILLIAMSON PATIENT [place] MED[place] SUPP[place] MEDEX BRONZ E Jun 06, 2007 [id number] NEVIN WILLIAMSON PATIENT [place] MEDEX BRONZ E Jun 06, 2007 [id number] NEVIN WILLIAMSON PATIENT MEDICARE (WNR) MEDICARE (M) PART B Jun 06, 2007 PART B [id number] NEVIN WILLIAMSON PATIENT MEDICARE (WNR) MEDICARE (M) PART B Jun 06, 2007 PART B [id number] NEVIN WILLIAMSON PATIENT MEDICARE (WNR) MEDICARE (M) PART A Jan 04, 2003 PART A [id number] NEVIN WILLIAMSON PATIENT MEDICARE (WNR) MEDICARE (M) PART A Jan 04, 2003 PART A [id number] NEVIN WILLIAMSON PATIENT MEDICARE (WNR) MEDICARE (M) PART B Jan 04, 2003 PART B [id number] NEVIN WILLIAMSON PATIENT MEDICARE (WNR) MEDICARE (M) PART A Jan 04, 2003 PART A [id number] NEVIN WILLIAMSON PATIENT Selected Encounter This section includes the information on record at [place] for the Encounter. Date/Time Encounter Type Encounter Description Reason Pro vider Source January 01, 2024 12:00 AM Outpatient Encounter COMMUNITY CARE CONSULT IHE Encounter Template Text not used by [place] Plan of Treatment: Future Appointments (+ 6 months) and Future Tests (+/- 45 days) The Plan of Treatment section includes future care activities for the patient from all [place] treatmentfacilities. This section includes future appointments and future orders which are active, pending or scheduled. Future Appointments This section includes appointments that were scheduled to occur 6 months from the date of the Encounter, up to a maximum of 20 appointments. The data comes from all [place] treatment facilities. Appointment Date/Time Appointment Type Appointme nt Facility Name Jan 08, 2024 10:00 AM AMBULATORY - MEDICINE [place] [facility] [place] [facility] Jan 08, 2024 10:30 AM AMBULATORY - MEDICINE [place] [facility] [place] [facility] Jan 21, 2024 10:30 AM AMBULATORY - NONE [place] [facility] [place] [facility] Jan 31, 2024 02:15 PM AMBULATORY - NONE [place] [facility] [place] [facility] Feb 11, 2024 08:30 AM AMBULATORY - MEDICINE [place] [facility] [place] [facility] Mar 04, 2024 10:30 AM AMBULATORY - MEDICINE [place] [facility] [place] [facility] Apr 17, 2024 10:45 AM AMBULATORY - MEDICINE [place] [facility] [place] [facility] Apr 23, 2024 11:00 AM AMBULATORY - MEDICINE [facility] [place] [facility] Apr 24, 2024 01:45 PM AMBULATORY - MEDICINE [place] [facility] [place] [facility] May 13, 2024 11:00 AM AMBULATORY - MEDICINE [place] [facility] [place] [facility] Jun 23, 2024 10:30 AM AMBULATORY - NONE [place] [facility] [place] [facility] Jun 23, 2024 11:30 AM AMBULATORY - MEDICINE [place] [facility] [place] [facility] Jun 30, 2024 10:00 AM [facility] Lab Results: +/- 30 days of the encounter This section includes the Chemistry and Hematology Lab Results on record with [place] for the patient. Radiology Reports and Pathology Reports are provided separately, in subsequent sections. Lab Results This section contains the Chemistry/Hematology Results that were resulted 30 days before or 30 daysafter the date of the Encounter. Date/Time Source Result Type Result - Unit Interpretation Reference Range Comment Jan 30, 2024 08:55 AM [facility] BASIC METABOLIC PANEL (non-fasting) Specimen Type: SERUM No comment entered. Ordering Provider: RUBI CROWE Report Released Date/Time: December 26, 2023 08:29 AM Reporting Lab: [facility] [address] [address] Performing Lab: [facility] [address] [facility] [address] UREA NITROGEN 9 mg/dL 7-25 GLUCOSE 109 mg/dL H 65-100 SODIUM 136 mmol/L 135-145 POTASSIUM 4.1 mmol/L 3.5-5.0 CHLORIDE 106 mmol/L 100-110 CO2 24 meq/L 20-30 CREATININE, Serum 1.01 mg/dL 0.50-1.40 eGFR(CKD-EPI 2020) 72 mL/min >60 Jan 30, 2024 08:55 AM [facility] LIPID PANEL, NON FASTING Specimen Type: SERUM No comment entered. Ordering Provider: RUBI CROWE Report Released Date/Time: December 26, 2023 08:29 AM Reporting Lab: [facility] [address] [address] Performing Lab: [facility] [address] [address] CHOLESTEROL 91 mg/dL TRIGLYCERIDE 65 mg/dL 0-150 LDL calculated 49 mg/dL 0-129 CHOL/HDL 3.1 HDL CHOLESTEROL 29 mg/dL L 40-60 Jan 30, 2024 08:55 AM [facility] CREATININE (eGFR 2020) Specimen Type: SERUM No comment entered. Ordering Provider: REGINA ALFARO Report Released Date/Time: Jan 28, 2024 02:54 PM Reporting Lab: [facility] [address] [facility] [address] Performing Lab: [address] [address] CREATININE, Serum 0.99 mg/dL 0.50-1.40 eGFR(CKD-EPI 2020) 74 mL/min >60 Social History: Smoking Status (Most current) and Tobacco Use (All prior to encounter date) This section includes the most current, and the historical, smoking and tobacco- related health factors from the [place] facility where the Encounter took place. Current Smoking Status This section includes the most current smoking, or tobacco-related health factor, from the [place] facility where the Encounter took place. Date/Time Current Smoking Status Comment [facility] May 03, 2022 01:00 PM [place]-TOBACCO QUIT 15 YRS OR MORE [facility] Tobacco Use History This section includes a history of the smoking, or tobacco-related health factors, that were collected on or before the date of the Encounter. The data comes from the [place] facility where the Encounter took place. Date/Time Smoking Status/Tobac co Use Comment Facility May 03, 2022 01:00 PM [place]-TOBACCO QUIT 15 YRS OR MORE [facility] May 17, 2021 09:00 AM VA-TOBACCO FORMER USER [place] [facility] [place] [facility] May 17, 2021 09:00 AM VA-TOBACCO QUIT 15 YRS OR MORE [place] [facility] [place] [facility] May 28, 2020 03:00 PM VA-TOBACCO FORMER USER [place] [facility] [place] [facility] May 28, 2020 03:00 PM VA-TOBACCO QUIT 5 TO < 15 YRS [place] [facility] [place] [facility] Oct 04, 2018 11:04 AM VA-TOBACCO FORMER USER [place] [facility] [place] [facility] Oct 04, 2018 11:04 AM VA-TOBACCO QUIT 1 TO < 5 YRS [facility] [place] [facility] Jan 24, 2018 01:52 PM CURRENT SMOKER [place] [facility] [place] [facility] Jan 24, 2018 01:52 PM QUIT TOBACCO USE IN PAST YEAR quit [facility]agarettes 3 [facility] Radiology Reports: +/- 30 days of the [...] the Encounter. The data comes from all [place] treatment facilities. Date/Time Radiology Report Provider Source Jan 31, 2024 02:[address] NECK SOFT TISSUE W/O CONT: NEVIN WILLIAMSON [id number] -1940 M Ex Date: JAN 31, 2024@14:36 Req Phys: ODALYS ALFARO Loc: CWM/NO/DERMATOLOGY MANAGER CASE AM (Req' Img Loc: NHM/CT Service: Unknown [facility] , (Case [id number] COMPLETE) CT NECK SOFT TISSUE W/O CONT (CT Detailed) CPT:22790 Reason for Study: follow up of 01/21/24 neck ultrasound for two subq lesions. Clinical History: Date Procedure CPT Status Case # 01/21/2024 ULTRASOUND NECK [id number] Verified 29 (THYROID,HEAD,SOFT TISSUE) Two subcutaneous lesions are seen in the region of palpable abnormalities measurin.5 x 2.0 x 0.7 cm hypoechoic and 1.4 x 1.2 x 0.7 cm. The findings are nonspecific and with CT neck with IV contrast should be considered for further evaluation. Report Status: Verified Date Reported: FEB 06, 2024 Date Verified: FEB 06, [address] E-Sig: Report: CT OF THE NECK WITHOUT IV CONTRAST: INDICATION: Follow-up of 01/21/2024 neck ultrasound for two subcutaneous lesions. TECHNIQUE: Volumetric CT acquisition through the neck, with axial, coronal and sagittal reformats, was performed at the local [place] facility. 1130 images were received by the [place] National T[facility] (NTP) for interpretation. RADIATION [...] as detailed above. READING PHYSICIAN: Kumar Fonseca -[id number] 02/06/2024 11:16 EDT [facility] National Teleradiology Program [phone] (For Medical Practitioner Use Only) Attention Patients / Veterans: If you have questions or concerns about these test results, please contact your ordering provider or primary care team. Primary Diagnostic Code: SIGNIFICANT ABNORMALITY, ATTN NEEDED Secondary Diagnostic Codes: INCIDENTAL LUNG NODULE(NONSCREENING) Primary Interpreting Staff: RADIOLOGY,OUTSIDE SERVICE, Staff Physician / RADIOLOGY,OUTSIDE SERVICE [facility] Jan 21, 2024 10:21 AM ULTRASOUND NECK (THYROID,HEAD,SOFT TISSUE): NEVIN WILLIAMSON [id number] -1940 M Ex Date: JAN 21, 2024@10:21 Req Phys: ODALYS ALFARO Loc: CWM/NO/DERMATOLOGY MANAGER CASE AM (Req' Img Loc: ULTRASOUND [facility] , (Case 29 COMPLETE) ULTRASOUND NECK (THYROID,HEAD,SOF(US Detailed) CPT:80170 Reason for Study: posterior neck mass, painful Clinical History: DDx: muscle strain vs lipoma vs other Report Status: Verified Date Reported: JAN 24, 2024 Date Verified: JAN 24, [address] E-Sig: Report: ULTRASOUND NECK (THYROID,HEAD,SOFT TISSUE) HISTORY: posterior neck mass, painful COMPARISON: None. TECHNIQUE: Sonographic imaging of the neck was performed at the local [place] facility. 10 images were received by the [place] National Teleradiology [facility] (NTP) for interpretation. FINDINGS/ Impression: Two subcutaneous lesions are seen in the region of palpable abnormalities measurin.5 x 2.0 x 0.7 cm hypoechoic and 1.4 x 1.2 x 0.7 cm. The findings are nonspecific and with CT neck with IV contrast should be considered for further evaluation. READING PHYSICIAN: Manolo Koo M.D. -[id number] 01/24/2024 15:55 EDT [facility] National Teleradiology Program [phone] (For Medical Practitioner Use Only) Attention Patients / Veterans: If you have questions or concerns about these test results, please contact your ordering provider or primary care team. Primary Diagnostic Code: NO ALERT REQUIRED Primary Interpreting Staff: RADIOLOGY,OUTSIDE SERVICE, Staff Physician / RADIOLOGY,OUTSIDE SERVICE [facility] Encounter Notes: All associated encounter notes This section contains the clinical notes associated to the Encounter. Date/Time Encounter Note(s) Provider Source January 01, 2024 12:00 AM NONVA CONSULT: LOCAL TITLE: COMMUNITY CARE-CONSULT RESULT NOTE STANDARD TITLE: NONVA CONSULT DATE OF NOTE: JANUARY 01, 2024 ENTRY DATE: JAN 15, 2024@09:43:16 AUTHOR: PERFECTO LIND EXP COSIGNER: URGENCY: STATUS: COMPLETED VistA Imaging - Scanned Document SCANNED DOCUMENT SIGNATURE NOT REQUIRED Electronically Filed: 01/15/2024 by: PERFECTO BREWSTER [facility]
--- OUTSIDE RECORDS SUMMARY | 2024-08-07 11:25 | XMS_ITS ---
Author Name [facility] Organization [facility] [place] Address [address] [place] [id number] Care Team Providers Care Paste Thinner Name Role Phone RUBI CROWE Primary Care [...] O MEDEX BRONZ E Jun 06, 2007 [id number] NEVIN WILLIAMSON PATIENT ANTHEM BCBS OF [place] MEDICARE SUPPLEMEN SALVATORE PSUED O MEDEX BRONZ E Jun 06, 2007 [id number] [phone] NEVIN WILLIAMSON PATIENT ANTHEM BCBS OF CT (BLUECARD) MEDICARE SUPPLEMEN [place] PSUED O MEDEX BRONZ E Jun 06, 2007 [id number] [phone] NEVIN WILLIAMSON PATIENT [place] SUPPLEMEN [place] MEDEX BRONZ E Jun 06, 2007 [id number] NEVIN WILLIAMSON [place]IENT [place] MEDEX BRONZ E Jun 06, 2007 [id number] NEVIN WILLIAMSON PATIENT MEDICARE (WNR) MEDICARE (M) PART B Jun 06, 2007 PART B [id number] NEVIN WILLIAMSON PATIENT MEDICARE (WNR) MEDICARE (M) PART B Jun 06, 2007 PART B [id number] NEVIN WILLIAMSON PATIENT MEDICARE (WNR) MEDICARE (M) PART A Jan 04, 2003 PART A [id number] NEVIN WILLIAMSON PATIENT MEDICARE (WNR) MEDICARE (M) PART A Jan 04, 2003 PART A [id number] NEVIN WILLIAMSON PATIENT MEDICARE (WNR) MEDICARE (M) PART B Jan 04, 2003 PART B [id number] NEVIN WILLIAMSON PATIENT MEDICARE (WNR) MEDICARE (M) PART A Jan 04, 2003 PART A [id number] NEVIN WILLIAMSON PATIENT Selected Encounter This section includes the information on record at [place] for the Encounter. Date/Time Encounter Type Encounter Description Reason Pro vider Source January 04, 2024 03:30 PM Outpatient Encounter TELEPHONE PRIMARY CARE IHE Encounter Template Text not used by AL Plan of Treatment: Future Appointments (+ 6 months) and Future Tests (+/- 45 days) The Plan of Treatment section includes future care activities for the patient from all [place] treatmentfacilities. This section includes future appointments and future orders which are active, pending or scheduled. Future Appointments This section includes appointments that were scheduled to occur 6 months from the date of the Encounter, up to a maximum of 20 appointments. The data comes from all [place] treatment facilities. Appointment Date/Time Appointment Type Appointme nt Facility Name Jan 08, 2024 10:00 AM AMBULATORY - MEDICINE [place] [facility] [place] [facility] Jan 08, 2024 10:30 AM AMBULATORY - MEDICINE [place] [facility] [place] [facility] Jan 21, 2024 10:30 AM AMBULATORY - NONE [facility] [place] [facility] Jan 31, 2024 02:15 PM AMBULATORY - NONE [facility] [place] [facility] Feb 11, 2024 08:30 AM AMBULATORY - MEDICINE [facility] [place] [facility] Mar 04, 2024 10:30 AM AMBULATORY - MEDICINE [facility] [place] [facility] Apr 17, 2024 10:45 AM AMBULATORY - MEDICINE [facility] [place] [facility] Apr 23, 2024 11:00 AM AMBULATORY - MEDICINE [facility] [place] [facility] Apr 24, 2024 01:45 PM AMBULATORY - MEDICINE [facility] [place] [facility] May 13, 2024 11:00 AM AMBULATORY - MEDICINE [facility] [place] [facility] Jun 23, 2024 10:30 AM AMBULATORY - NONE [facility] [place] [facility] Jun 23, 2024 11:30 AM AMBULATORY - MEDICINE [facility] [place] [facility] Jun 30, 2024 10:00 AM [facility] Lab Results: +/- 30 days of the encounter This section includes the Chemistry and Hematology Lab Results on record with AL for the patient. Radiology Reports and Pathology Reports are provided separately, in subsequent sections. Lab Results This section contains the Chemistry/Hematology Results that were resulted 30 days before or 30 daysafter the date of the Encounter. Date/Time Source Result Type Result - Unit Interpretation Reference Range Comment Jan 30, 2024 08:55 [facility] BASIC METABOLIC PANEL (non-fasting) Specimen Type: SERUM No comment entered. Ordering Provider: RUBI CROWE Report Released Date/Time: December 26, 2023 08:29 AM Reporting Lab: [facility] [address] [id number] Performing Lab: [facility] [address] [address] UREA NITROGEN 9 mg/dL 7-25 GLUCOSE 109 mg/dL H 65-100 SODIUM 136 mmol/L 135-145 POTASSIUM 4.1 mmol/L 3.5-5.0 CHLORIDE 106 mmol/L 100-110 CO2 24 meq/L 20-30 CREATININE, Serum 1.01 mg/dL 0.50-1.40 eGFR(CKD-EPI 2020) 72 mL/min >60 Jan 30, 2024 08:55 AM [facility] LIPID PANEL, NON FASTING Specimen Type: SERUM No comment entered. Ordering Provider: RUBI CROWE Report Released Date/Time: December 26, 2023 08:29 AM Reporting Lab: [facility] [address] [phone] Performing Lab: [facility] [address] [address] CHOLESTEROL 91 mg/dL TRIGLYCERIDE 65 mg/dL 0-150 LDL calculated 49 mg/dL 0-129 CHOL/HDL 3.1 HDL CHOLESTEROL 29 mg/dL L 40-60 Jan 30, 2024 08:55 AM [facility] CREATININE (eGFR 2020) Specimen Type: SERUM No comment entered. Ordering Provider: REGINA ALFARO Report Released Date/Time: Jan 28, 2024 02:54 PM Reporting Lab: [facility] [address] [address] Performing Lab: [address] [address] CREATININE, Serum 0.99 mg/dL 0.50-1.40 eGFR(CKD-EPI 2020) 74 mL/min >60 Social History: Smoking Status (Most current) and Tobacco Use (All prior to encounter date) This section includes the most current, and the historical, smoking and tobacco- related health factors from the [place] facility where the Encounter took place. Current Smoking Status This section includes the most current smoking, or tobacco-related health factor, from the [place] facility where the Encounter took place. Date/Time Current Smoking Status Comment [facility] May 03, 2022 01:00 PM AL-TOBACCO QUIT 15 YRS OR MORE [facility] Tobacco Use History This section includes a history of the smoking, or tobacco-related health factors, that were collected on or before the date of the Encounter. The data comes from the [place] facility where the Encounter took place. Date/Time Smoking Status/Tobac co Use Comment Facility May 03, 2022 01:00 PM AL-TOBACCO QUIT 15 YRS OR MORE [facility] May 17, 2021 09:00 AM VA-TOBACCO FORMER USER [facility] [place] [facility] May 17, 2021 09:00 AM VA-TOBACCO QUIT 15 YRS OR MORE [facility] [place] [facility] May 28, 2020 03:00 PM VA-TOBACCO FORMER USER [place] [facility] [place] [facility] May 28, 2020 03:00 PM VA-TOBACCO QUIT 5 TO < 15 YRS [facility] [place] [facility] Oct 04, 2018 11:04 AM VA-TOBACCO FORMER USER [place] [facility] [place] [facility] Oct 04, 2018 11:04 AM VA-TOBACCO QUIT 1 TO < 5 YRS [facility] [place] [facility] Jan 24, 2018 01:52 PM CURRENT SMOKER [facility] [place] [facility] Jan 24, 2018 01:52 PM QUIT TOBACCO USE IN PAST YEAR quit [facility]agarettes 3 [facility] Radiology Reports: +/- 30 days of [...] the Encounter. The data comes from all [place] treatment facilities. Date/Time Radiology Report Provider Source Jan 31, 2024 02:[address] NECK SOFT TISSUE W/O CONT: NEVIN WILLIAMSON [id number] -1940 M Ex Date: JAN 31, 2024@14:36 Req Phys: ODALYS ALFARO Loc: CWM/NO/DERMATOLOGY R&D LAB TECHNICIAN AM (Req' Img Loc: NHM/CT Service: Unknown [place] [facility] , (Case [id number] COMPLETE) CT NECK SOFT TISSUE W/O CONT (CT Detailed) CPT:61156 Reason for Study: follow up of 01/21/24 neck ultrasound for two subq lesions. Clinical History: Date Procedure CPT Status Case # 01/21/2024 ULTRASOUND NECK [id number] Verified 29 (THYROID,HEAD,SOFT TISSUE) Two subcutaneous lesions are seen in the region of palpable abnormalities measurin.5 x 2.0 x 0.7 cm hypoechoic and 1.4 x 1.2 x 0.7 cm. The findings are nonspecific and with CT neck with IV contrast should be considered for further evaluation. Report Status: Verified Date Reported: FEB 06, 2024 Date Verified: FEB 06, 2024 Scaffold Worker E-Sig: Report: CT OF THE NECK WITHOUT IV CONTRAST: INDICATION: Follow-up of 01/21/2024 neck ultrasound for two subcutaneous lesions. TECHNIQUE: Volumetric CT acquisition through the neck, with axial, coronal and sagittal reformats, was performed at the local [place] facility. 1130 images were received by the [place] National Teleradiology Program (NTP) for interpretation. RADIATION [...] as detailed above. READING PHYSICIAN: Kumar Fonseca -[phone] 02/06/2024 11:[address] [facility] National Teleradiology Program [phone] (For Medical Practitioner Use Only) Attention Patients / Veterans: If you have questions or concerns about these test results, please contact your ordering provider or primary care team. Primary Diagnostic Code: SIGNIFICANT ABNORMALITY, ATTN NEEDED Secondary Diagnostic Codes: INCIDENTAL LUNG NODULE(NONSCREENING) Primary Interpreting Staff: RADIOLOGY,OUTSIDE SERVICE, Staff Physician / RADIOLOGY,OUTSIDE SERVICE [facility] Jan 21, 2024 10:21 AM ULTRASOUND NECK (THYROID,HEAD,SOFT TISSUE): NEVIN WILLIAMSON [id number] -1940 M Ex Date: JAN 21, 2024@10:21 Req Phys: ODALYS ALFARO Loc: CWM/NO/DERMATOLOGY R&D LAB TECHNICIAN AM (Req' Img Loc: ULTRASOUND [facility] , (Case 29 COMPLETE) ULTRASOUND NECK (THYROID,HEAD,SOF(US Detailed) CPT:53175 Reason for Study: posterior neck mass, painful Clinical History: DDx: muscle strain vs lipoma vs other Report Status: Verified Date Reported: JAN 24, 2024 Date Verified: JAN 24, 2024 Scaffold Worker E-Sig: Report: ULTRASOUND NECK (THYROID,HEAD,SOFT TISSUE) HISTORY: posterior neck mass, painful COMPARISON: None. TECHNIQUE: Sonographic imaging of the neck was performed at the local [place] facility. 10 images were received by the [place] National Teleradiology Program (NTP) for interpretation. FINDINGS/ Impression: Two subcutaneous lesions are seen in the region of palpable abnormalities measurin.5 x 2.0 x 0.7 cm hypoechoic and 1.4 x 1.2 x 0.7 cm. The findings are nonspecific and with CT neck with IV contrast should be considered for further evaluation. READING PHYSICIAN: Manolo Koo M.D. -[id number] 01/24/2024 15:[address] [facility] National Teleradiology Program [phone] (For Medical Practitioner Use Only) Attention Patients / Veterans: If you have questions or concerns about these test results, please contact your ordering provider or primary care team. Primary Diagnostic Code: NO ALERT REQUIRED Primary Interpreting Staff: RADIOLOGY,OUTSIDE SERVICE, Staff Physician / RADIOLOGY,OUTSIDE SERVICE [facility] Encounter Notes: All associated encounter notes This section contains the clinical notes associated to the Encounter. Date/Time Encounter Note(s) Provider Source January 04, 2024 03:30 PM ADMINISTRATIVE NOT E: LOCAL TITLE: FAX/MAIL RECEIVED STANDARD TITLE: ADMINISTRATIVE NOTE DATE OF NOTE: JANUARY 04, 2024@15:30 ENTRY DATE: JANUARY 04, 2024@15:30:18 AUTHOR: JERRY MCCARTNEY EXP COSIGNER: URGENCY: STATUS: COMPLETED Document Received On: December Document Type: Other: [facility] Dr. Pyle Date of Service: Feb Facility and or Provider: Contact Information: PCP of Record: RUBI CROWE Next visit with PCP: 01/08/2024 10:00 CWM/NO/PACT EIGHT 01/08/2024 10:30 CWM/NO/DERMATOLOGY R&D LAB TECHNICIAN AM 03/04/2024 10:30 CWM/NO/PODIATRY A 03/18/2024 09:00 CWM/NO/PODIATRY/NAIL 06/23/2024 10:30 NHM/ENDOCRINE 08/14/2024 09:00 CWM/NO/OPTOMETRY/ALTHEA 12/11/2024 10:00 CWM/NO/DERMATOLOGY R&D LAB TECHNICIAN AM Primary Care May keep copies of this document for up to 14 days and send the original for scanning. Received fax from [facility] requesting medical clearance for Cataract surgery scheduled on 02/28/24 and 03/20/24. scheduled with PCP on 01/08/24. Medical clearance must be within 30 days of surgery. Fax placed to PCP folder for review. Please advise if veterans 01/08/24 appt should be rescheduled closer to surgery date /catalina/ JERRY MCCARTNEY, DORYS REGISTERED NURSE Signed: 01/04/2024 15:33 Receipt Acknowledged By: 01/04/2024 15:38 /catalina/ RUBI CROWE D.O. PHYSICIAN JERRY MCCARTNEY [facility]
--- OUTSIDE RECORDS SUMMARY | 2024-08-07 11:25 | XMS_ITS | Encounter Summary ---
Author Name [facility] Organization [facility] Address [address] [place] [address] Care Team Providers Care Exhibition Designer Name Role Phone RUBI CROWE Primary Care [...] O MEDEX BRONZ E Jun 06, 2007 [id number] [phone] NEVIN WILLIAMSON PATIENT ANTHEM BCBS OF [place] MEDICARE SUPPLEMEN [place] PSUED O MEDEX BRONZ E Jun 06, 2007 [id number] [phone] NEVIN WILLIAMSON PATIENT ANTHEM BCBS OF [place] (BLUECARD) MEDICARE SUPPLEMEN [place] PSUED O MEDEX BRONZ E Jun 06, 2007 [id number] [phone] NEVIN WILLIAMSON PATIENT [place]BS [place] MEDICARE SUPPLEMEN [place] MEDEX BRONZ E Jun 06, 2007 [id number] [phone] NEVIN WILLIAMSON PATIENT [place] SUPPLEMEN [place] MEDEX BRONZ E Jun 06, 2007 [id number] NEVIN WILLIAMSON PATIENT MEDICARE (WNR) MEDICARE (M) PART B Jun 06, 2007 PART B [id number] NEVIN WILLIAMSON PATIENT MEDICARE (WNR) MEDICARE (M) PART B Jun 06, 2007 PART B [id number] NEVIN WILLIAMSON PATIENT MEDICARE (WNR) MEDICARE (M) PART A Jan 04, 2003 PART A [id number] NEVIN WILLIAMSON PATIENT MEDICARE (WNR) MEDICARE (M) PART A Jan 04, 2003 PART A [id number] NEVIN WILLIAMSON PATIENT MEDICARE (WNR) MEDICARE (M) PART A Jan 04, 2003 PART A [id number] [phone] NEVIN WILLIAMSON PATIENT MEDICARE (WNR) MEDICARE (M) PART B Jan 04, 2003 PART B [id number] [phone] NEVIN WILLIAMSON PATIENT Selected Encounter This section includes the information on record at [place] for the Encounter. Date/Time Encounter Type Encounter Description Reason Pro vider Source Jan 09, 2024 11:40 AM Outpatient Encounter PHYSICAL THERAPY IHE Encounter Template Text not used by [place] Plan of Treatment: Future Appointments (+ 6 months) and Future Tests (+/- 45 days) The Plan of Treatment section includes future care activities for the patient from all [place] treatmentfacilities. This section includes future appointments and future orders which are active, pending or scheduled. Future Appointments This section includes appointments that were scheduled to occur 6 months from the date of the Encounter, up to a maximum of 20 appointments. The data comes from all [place] treatment facilities. Appointment Date/Time Appointment Type Appointme nt Facility Name Jan 21, 2024 10:30 AM AMBULATORY - NONE [place] [facility] [place] [facility] Jan 31, 2024 02:15 PM AMBULATORY - NONE [facility] [place] [facility] Feb 11, 2024 08:30 AM AMBULATORY - MEDICINE [place] [facility] [place] [facility] Mar 04, 2024 10:30 AM AMBULATORY - MEDICINE [place] [facility] [place] [facility] Apr 17, 2024 10:45 AM AMBULATORY - MEDICINE [facility] [place] [facility] Apr 23, 2024 11:00 AM AMBULATORY - MEDICINE [facility] [place] [facility] Apr 24, 2024 01:45 PM AMBULATORY - MEDICINE [facility] [place] [facility] May 13, 2024 11:00 AM AMBULATORY - MEDICINE [place] [facility] [place] [facility] Jun 23, 2024 10:30 AM AMBULATORY - NONE [facility] [place] [facility] Jun 23, 2024 11:30 AM AMBULATORY - MEDICINE [place] [facility] [place] [facility] Jun 30, 2024 10:00 AM AMBULATORY - MEDICINE [place] [facility] [place] [facility] Lab Results: +/- 30 days of the encounter This section includes the Chemistry and Hematology Lab Results on record with [facility] for the patient. Radiology Reports and Pathology Reports are provided separately, in subsequent sections. Lab Results This section contains the Chemistry/Hematology Results that were resulted 30 days before or 30 daysafter the date of the Encounter. Date/Time Source Result Type Result - Unit Interpretation Reference Range Comment Jan 30, 2024 08:55 AM [facility] [place] LIPID PANEL, NON FASTING Specimen Type: SERUM No comment entered. Ordering Provider: RUBI CROWE Report Released Date/Time: December 26, 2023 08:29 AM Reporting Lab: [facility] [place] [facility] [address] [facility] [address] Performing Lab: [facility] [address] [address] CHOLESTEROL 91 mg/dL TRIGLYCERIDE 65 mg/dL 0-150 LDL calculated 49 mg/dL 0-129 CHOL/HDL 3.1 HDL CHOLESTEROL 29 mg/dL L 40-60 Jan 30, 2024 08:55 AM [facility] BASIC METABOLIC PANEL (non-fasting) Specimen Type: SERUM No comment entered. Ordering Provider: RUBI CROWE Report Released Date/Time: December 26, 2023 08:29 AM Reporting Lab: [facility] [address] [address] Performing Lab: [facility] [place] [address] [place] [address] UREA NITROGEN 9 mg/dL 7-25 GLUCOSE 109 mg/dL H 65-100 SODIUM 136 mmol/L 135-145 POTASSIUM 4.1 mmol/L 3.5-5.0 CHLORIDE 106 mmol/L 100-110 CO2 24 meq/L 20-30 CREATININE, Serum 1.01 mg/dL 0.50-1.40 eGFR(CKD-EPI 2020) 72 mL/min >60 Jan 30, 2024 08:55 AM [facility] CREATININE (eGFR 2020) Specimen Type: SERUM No comment entered. Ordering Provider: REGINA ALFARO Report Released Date/Time: Jan 28, 2024 02:54 PM Reporting Lab: [address] [address] Performing Lab: [address] [address] CREATININE, Serum 0.99 mg/dL 0.50-1.40 eGFR(CKD-EPI 2020) 74 mL/min >60 Social History: Smoking Status (Most current) and Tobacco Use (All prior to encounter date) This section includes the most current, and the historical, smoking and tobacco- related health factors from the [place] facility where the Encounter took place. Current Smoking Status This section includes the most current smoking, or tobacco-related health factor, from the [place] facility where the Encounter took place. Date/Time Current Smoking Status Comment [facility] haider Jan 08, 2024 10:00 AM [place]-TOBACCO QUIT 5 TO < 15 YRS [facility] Tobacco Use History This section includes a history of the smoking, or tobacco-related health factors, that were collected on or before the date of the Encounter. The data comes from the [place] facility where the Encounter took place. Date/Time Smoking Status/Tobac co Use Comment Facility Jan 08, 2024 10:00 AM [place]-TOBACCO QUIT 5 TO < 15 YRS [facility] May 03, 2022 01:00 PM VA-TOBACCO FORMER USER [facility] May 03, 2022 01:00 PM VA-TOBACCO QUIT 15 YRS OR MORE [facility] May 17, 2021 09:00 AM VA-TOBACCO FORMER USER [place] [facility] [place] [facility] May 17, 2021 09:00 AM VA-TOBACCO QUIT 15 YRS OR MORE [facility] [place] [facility] May 28, 2020 03:00 PM VA-TOBACCO FORMER USER [facility] [place] [facility] May 28, 2020 03:00 PM VA-TOBACCO QUIT 5 TO < 15 YRS [facility] [place] [facility] Oct 04, 2018 11:04 AM VA-TOBACCO FORMER USER [facility] [place] [facility] Oct 04, 2018 11:04 AM VA-TOBACCO QUIT 1 TO < 5 YRS [facility] [place] [facility] Jan 24, 2018 01:52 PM CURRENT SMOKER [facility] [place] [facility] Jan 24, 2018 01:52 PM QUIT TOBACCO USE IN PAST YEAR quit ciagarettes 3 months ago [facility] Radiology Reports: +/- 30 days of [...] the Encounter. The data comes from all [place] treatment facilities. Date/Time Radiology Report Provider Source Jan 31, 2024 02:[address] NECK SOFT TISSUE W/O CONT: NEVIN WILLIAMSON [id number] M Ex Date: JAN 31, 2024@14:36 Req Phys: ODALYS ALFARO Loc: CWM/NO/DERMATOLOGY CHIEF SPECIALIST LEED AM (Req' Img Loc: NHM/CT Service: Unknown [place] [facility] , (Case [id number] COMPLETE) CT NECK SOFT TISSUE W/O CONT (CT Detailed) CPT:10565 Reason for Study: follow up of 01/21/24 neck ultrasound for two subq lesions. Clinical History: Date Procedure CPT Status Case # 01/21/2024 ULTRASOUND NECK [id number] Verified 29 (THYROID,HEAD,SOFT TISSUE) Two subcutaneous lesions are seen in the region of palpable abnormalities measurin.5 x 2.0 x 0.7 cm hypoechoic and 1.4 x 1.2 x 0.7 cm. The findings are nonspecific and with CT neck with IV contrast should be considered for further evaluation. Report Status: Verified Date Reported: FEB 06, 2024 Date Verified: FEB 06, 2024 Multiple Slide Operator E-Sig: Report: CT OF THE NECK WITHOUT IV CONTRAST: INDICATION: Follow-up of 01/21/2024 neck ultrasound for two subcutaneous lesions. TECHNIQUE: Volumetric CT acquisition through the neck, with axial, coronal and sagittal reformats, was performed at the local [place] facility. 1130 images were received by the [place] National Teleradiology Program (NTP) for interpretation. RADIATION [...] as detailed above. READING PHYSICIAN: Kumar Fonseca -[phone] 02/06/2024 11:16 EDT [facility] National Teleradiology Program [phone] (For Medical Practitioner Use Only) Attention Patients / Veterans: If you have questions or concerns about these test results, please contact your ordering provider or primary care team. Primary Diagnostic Code: SIGNIFICANT ABNORMALITY, ATTN NEEDED Secondary Diagnostic Codes: INCIDENTAL LUNG NODULE(NONSCREENING) Primary Interpreting Staff: RADIOLOGY,OUTSIDE SERVICE, Staff Physician / RADIOLOGY,OUTSIDE SERVICE [facility] Jan 21, 2024 10:21 AM ULTRASOUND NECK (THYROID,HEAD,SOFT TISSUE): NEVIN WILLIAMSON [id number] M Ex Date: JAN 21, 2024@10:21 Req Phys: ODALYS ALFARO Pat Loc: CWM/NO/DERMATOLOGY CHIEF SPECIALIST LEED AM (Req' Img Loc: ULTRASOUND Service: Unknown [facility] , (Case [id number] COMPLETE) ULTRASOUND NECK (THYROID,HEAD,SOF(US Detailed) CPT:68622 Reason for Study: posterior neck mass, painful Clinical History: DDx: muscle strain vs lipoma vs other Report Status: Verified Date Reported: JAN 24, 2024 Date Verified: JAN 24, 2024 Multiple Slide Operator E-Sig: Report: ULTRASOUND NECK (THYROID,HEAD,SOFT TISSUE) HISTORY: posterior neck mass, painful COMPARISON: None. TECHNIQUE: Sonographic imaging of the neck was performed at the local [place] facility. 10 images were received by the [place] National Teleradiology Program (NTP) for interpretation. FINDINGS/ Impression: Two subcutaneous lesions are seen in the region of palpable abnormalities measurin.5 x 2.0 x 0.7 cm hypoechoic and 1.4 x 1.2 x 0.7 cm. The findings are nonspecific and with CT neck with IV contrast should be considered for further evaluation. READING PHYSICIAN: Manolo Koo M.D. -[phone] 01/24/2024 15:55 EDT [facility] National Teleradiology Program [phone] (For Medical Practitioner Use Only) Attention Patients / Veterans: If you have questions or concerns about these test results, please contact your ordering provider or primary care team. Primary Diagnostic Code: NO ALERT REQUIRED Primary Interpreting Staff: RADIOLOGY,OUTSIDE SERVICE, Staff Physician / RADIOLOGY,OUTSIDE SERVICE [facility] Encounter Notes: All associated encounter notes This section contains the clinical notes associated to the Encounter. Date/Time Encounter Note(s) Provider Source Jan 09, 2024 11:44 AM PHYSICAL THERAPY CONSULT: [facility] TITLE: PHYSICAL THERAPY CONSULT STANDARD TITLE: PHYSICAL THERAPY CONSULT DATE OF NOTE: JAN 09, 2024@11:44 ENTRY DATE: JAN 09, 2024@11:44:50 AUTHOR: PAULA JORDAN EXP COSIGNER: URGENCY: STATUS: COMPLETED Initial Evaluation date: Jan Progress Note Date: Treatment #: 0 Treatment time: 3 mins Diagnosis: weakness Provider: PT Treatment Precautions: Patient identified by full name and date of Sublimity requested replacement front wheeled walker, ordered and sent to 's home, no training needed. /catalina/ YAMILKA MASON LICENSE COOKER CASING Signed: 01/09/2024 11:46 PAULA JORDAN [facility]
--- OUTSIDE RECORDS SUMMARY | 2024-08-07 11:25 | XMS_ITS ---
Author Name [facility] [place] [facility] [place] [address] [place] [address] Care Team Providers Care Complaint Adjuster Name Role Phone RUBI CROWE Primary Care Provider Unavailabl e Insurance Providers: All historical and current Section [...] O MEDEX BRONZ E Jun 06, 2007 [id number] [phone] NEVIN WILLIAMSON PATIENT ANTHEM BCBS OF [place] MEDICARE SUPPLEMEN [place] PSUED O MEDEX BRONZ E Jun 06, 2007 [id number] NEVIN WILLIAMSON PATIENT ANTHEM BCBS OF CT (BLUECARD) MEDICARE SUPPLEMEN [place] PSUED O MEDEX BRONZ E Jun 06, 2007 [id number] NEVIN WILLIAMSON PATIENT [place] MEDEX BRONZ E Jun 06, 2007 [id number] NEVIN WILLIAMSON PATIENT [place] MEDEX BRONZ E Jun 06, 2007 [id number] NEVIN WILLIAMSON PATIENT MEDICARE (WNR) MEDICARE (M) PART B Jun 06, 2007 PART B [id number] NEVIN WILLIAMSON PATIENT MEDICARE (WNR) MEDICARE (M) PART B Jun 06, 2007 PART B [id number] NEVIN WILLIAMSON PATIENT MEDICARE (WNR) MEDICARE (M) PART A Jan 04, 2003 PART A [id number] NEVIN WILLIAMSON PATIENT MEDICARE (WNR) MEDICARE (M) PART A Jan 04, 2003 PART A [id number] [phone] NEVIN WILLIAMSON PATIENT MEDICARE (WNR) MEDICARE (M) PART B Jan 04, 2003 PART B [id number] NEVIN WILLIAMSON PATIENT MEDICARE (WNR) MEDICARE (M) PART A Jan 04, 2003 PART A [id number] [phone] NEVIN WILLIAMSON PATIENT Selected Encounter This section includes the information on record at [place] for the Encounter. Date/Time Encounter Type Encounter Description Reason Provider Source Jan 08, 2024 10:00 AM OFFICE O/P EST MOD 30 MIN PRIMARY CARE/MEDICINE ICD-10-CM Z98.890 Other specified postprocedural states FURCOLO,RUBI E Encounter Template Text not used by [place] Assessments - Encounter Diagnoses This section includes the primary and secondary diagnoses documented for the Encounter. Date/Time Primary/Secondary Diagnosis Diagnosis Name Provider Source Jan 08, 2024 10:30 AM PRIMARY Other specified postprocedural states FURCOLO,RUBI [facility] [place] [facility] Jan 08, 2024 10:30 AM SECONDARY Athscl heart disease of [place] coronary artery w/o ang pctrs FURCOLO,RUBI [facility] [place] [facility] Jan 08, 2024 10:30 AM SECONDARY Cerebral infarction, unspecified FURCOLO,RUBI [facility] [place] [facility] Jan 08, 2024 10:30 AM SECONDARY Chronic obstructive pulmonary disease, unspecified FURCOLO,RUBI [facility] [place] [facility] Jan 08, 2024 10:30 AM SECONDARY Essential (primary) hypertension RUBI CROWE [facility] [place] [facility] Jan 08, 2024 10:30 AM SECONDARY Hyperlipidemia, unspecified RUBI CROWE [facility] [place] [facility] Plan of Treatment: Future Appointments (+ 6 months) and Future Tests (+/- 45 days) The Plan of Treatment section includes future care activities for the patient from all [place] treatmentfacilities. This section includes future appointments and future orders which are active, pending or scheduled. Future Appointments This section includes appointments that were scheduled to occur 6 months from the date of the Encounter, up to a maximum of 20 appointments. The data comes from all [place] treatment facilities. Appointment Date/Time Appointment Type Appointme nt Facility Name Jan 21, 2024 10:30 AM AMBULATORY - NONE [facility] [place] [facility] Jan 31, 2024 02:15 PM AMBULATORY - NONE [facility] [place] [facility] Feb 11, 2024 08:30 AM AMBULATORY - MEDICINE [facility] [place] [facility] Mar 04, 2024 10:30 AM AMBULATORY - MEDICINE [facility] [place] [facility] Apr 17, 2024 10:45 AM AMBULATORY - MEDICINE [facility] [place] [facility] Apr 23, 2024 11:00 AM AMBULATORY - MEDICINE [facility] [place] [facility] Apr 24, 2024 01:45 PM AMBULATORY - MEDICINE [facility] [place] [facility] May 13, 2024 11:00 AM AMBULATORY - MEDICINE [facility] [place] [facility] Jun 23, 2024 10:30 AM AMBULATORY - NONE [facility] [place] [facility] Jun 23, 2024 11:30 AM AMBULATORY - MEDICINE [facility] [place] [facility] Jun 30, 2024 10:00 AM AMBUL[place]ORY [place]ICINE [place] [facility] [place] [facility] Lab Results: +/- 30 days of the encounter This section includes the Chemistry and Hematology Lab Results on record with [place] for the patient. Radiology Reports and Pathology Reports are provided separately, in subsequent sections. Lab Results This section contains the Chemistry/Hematology Results that were resulted 30 days before or 30 daysafter the date of the Encounter. Date/Time Source Result Type Result - Unit Interpretation Reference Range Comment Jan 30, 2024 08:55 AM [facility] BASIC METABOLIC PANEL (non-fasting) Specimen Type: SERUM No comment entered. Ordering Provider: RUBI CROWE Report Released Date/Time: December 26, 2023 08:29 AM Reporting Lab: [address] [address] Performing Lab: [address] [address] UREA NITROGEN 9 mg/dL 7-25 GLUCOSE 109 mg/dL H 65-100 SODIUM 136 mmol/L 135-145 POTASSIUM 4.1 mmol/L 3.5-5.0 CHLORIDE 106 mmol/L 100-110 CO2 24 meq/L 20-30 CREATININE, Serum 1.01 mg/dL 0.50-1.40 eGFR(CKD-EPI 2020) 72 mL/min >60 Jan 30, 2024 08:55 AM [facility] LIPID PANEL, NON FASTING Specimen Type: SERUM No comment entered. Ordering Provider: RUBI CROWE Report Released Date/Time: December 26, 2023 08:29 AM Reporting Lab: [facility] [address] [facility] [address] Performing Lab: [address] [address] CHOLESTEROL 91 mg/dL TRIGLYCERIDE 65 mg/dL 0-150 LDL calculated 49 mg/dL 0-129 CHOL/HDL 3.1 HDL CHOLESTEROL 29 mg/dL L 40-60 Jan 30, 2024 08:55 AM [facility] CREATININE (eGFR 2020) Specimen Type: SERUM No comment entered. Ordering Provider: REGINA ALFARO Report Released Date/Time: Jan 28, 2024 02:54 PM Reporting Lab: [facility] [address] [facility] [address] Performing Lab: [address] [address] CREATININE, Serum 0.99 mg/dL 0.50-1.40 eGFR(CKD-EPI 2020) 74 mL/min >60 Vital Signs: All taken on the encounter date This section contains inpatient and outpatient Vital Signs collected on the date of the Encounter. Date/Time Temperature Pulse Blood Pressure Respiratory Rate SP02 Pain Height Weight Body Mass Index Source Jan 08, 2024 10:03 AM 98.1 63 162/62 16 93 5 178 27 [place] [facility] [place] [facility] Social History: Smoking Status (Most current) and Tobacco Use (All prior to encounter date) This section includes the most current, and the historical, smoking and tobacco- related health factors from the [place] facility where the Encounter took place. Current Smoking Status This section includes the most current smoking, or tobacco-related health factor, from the [place] facility where the Encounter took place. Date/Time Current Smoking Status Comment [facility] Jan 08, 2024 10:00 AM VA-TOBACCO FORMER USER [place] [facility] [place] [facility] Tobacco Use History This section includes a history of the smoking, or tobacco-related health factors, that were collected on or before the date of the Encounter. The data comes from the [place] facility where the Encounter took place. Date/Time Smoking Status/Tobac co Use Comment Facility Jan 08, 2024 10:00 AM VA-TOBACCO QUIT 5 TO < 15 YRS [facility] [place] [facility] May 03, 2022 01:00 PM VA-TOBACCO FORMER USER [facility] [place] [facility] May 03, 2022 01:00 PM VA-TOBACCO QUIT 15 YRS OR MORE [facility] [place] [facility] May 17, 2021 09:00 AM VA-TOBACCO FORMER USER [facility] [place] [facility] May 17, 2021 09:00 AM VA-TOBACCO QUIT 15 YRS OR MORE [facility] [place] [facility] May 28, 2020 03:00 PM VA-TOBACCO FORMER USER [facility] [place] [facility] May 28, 2020 03:00 PM VA-TOBACCO QUIT 5 TO < 15 YRS [facility] [place] [facility] Oct 04, 2018 11:04 AM VA-TOBACCO FORMER USER [facility] [place] [facility] Oct 04, 2018 11:04 AM VA-TOBACCO QUIT 1 TO < 5 YRS [facility] [place] [facility] Jan 24, 2018 01:52 PM CURRENT SMOKER [facility] Jan 24, 2018 01:52 PM QUIT TOBACCO USE IN PAST YEAR quit ciagarettes 3 months ago [facility] Radiology Reports: +/- 30 days of [...] the Encounter. The data comes from all [place] treatment facilities. 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 Clinical History: Date Procedure CPT Status Case # 01/21/2024 ULTRASOUND NECK [id number] Verified 29 (THYROID,HEAD,SOFT TISSUE) Two subcutaneous lesions are seen in the region of palpable abnormalities measurin.5 x 2.0 x 0.7 cm hypoechoic and 1.4 x 1.2 x 0.7 cm. The findings are nonspecific and with CT neck with IV contrast should be considered for further evaluation. Report Status: Verified Date Reported: FEB 06, 2024 Date Verified: FEB 06, 2024 Physical Scientist E-Sig: Report: CT OF THE NECK WITHOUT IV CONTRAST: INDICATION: Follow-up of 01/21/2024 neck ultrasound for two subcutaneous lesions. TECHNIQUE: Volumetric CT acquisition through the neck, with axial, coronal and sagittal reformats, was performed at the local [place] facility. 1130 images were received by the [place] National [facility] (NTP) for interpretation. RADIATION [...] as detailed above. READING PHYSICIAN: Kumar Fonseca -[phone] 02/06/2024 11:16 EDT [facility] National Teleradiology Program [phone] (For Medical Practitioner Use Only) Attention Patients / Veterans: If you have questions or concerns about these test results, please contact your ordering provider or primary care team. 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 TECHNIQUE: Sonographic imaging of the neck was performed at the local [place] facility. 10 images were received by the [place] [facility] T[facility] (NTP) for interpretation. FINDINGS/ Impression: Two subcutaneous lesions are seen in the region of palpable abnormalities measurin.5 x 2.0 x 0.7 cm hypoechoic and 1.4 x 1.2 x 0.7 cm. The findings are nonspecific and with CT neck with IV contrast should be considered for further evaluation. READING PHYSICIAN: Manolo Koo M.D. -[id number] 01/24/2024 15:55 EDT [facility] National Teleradiology Program [phone] (For Medical Practitioner Use Only) Attention Patients / Veterans: If you have questions or concerns about these test results, please contact your ordering provider or primary care team. Primary Diagnostic Code: NO ALERT REQUIRED Primary Interpreting Staff: RADIOLOGY,OUTSIDE SERVICE, Staff Physician / RADIOLOGY,OUTSIDE SERVICE [place] [facility] [place] [facility] Encounter Notes: All associated encounter notes This section contains the clinical notes associated to the Encounter. Date/Time Encounter Note(s) Provider Source Jan 08, 2024 10:24 AM PHYSICIAN NOTE: LOCAL TITLE: MD NOTE STANDARD TITLE: PHYSICIAN NOTE DATE OF NOTE: JAN 08, 2024@10:24 ENTRY DATE: JAN 08, 2024@10:25:01 AUTHOR: RUBI CROWE COSIGNER: URGENCY: STATUS: COMPLETED cc: here for BP f/u and cataract surgery on 02/27 wanting new collapsable walker. mainly only walking short distances with walker. apt today with derm PMHx: Active problems - Computerized Problem List is the source for the followin. Multinodular goiter 2. History of carotid endarterectomy Right carotid endarderectomy 07/18/21 @[facility], following with Vascular 3. Cerebrovascular accident 4. Coronary atherosclerosis following with [facility] cardiology, 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, near syncope 5. Strain of infraspinatus muscle 6. Limitation of motion 04/09/19 - right shoulder pain ( muscle strain ) OT consult ordered 04/09/19 7. Decreased vitamin D VIT D - 18 MED: decline VIT D supplement 8. H/O: glaucoma 9. Immunization status complete Shingrex # 2 09/08/08/24 10. Adult screening status vit D - 18 11. Hyperlipidemia 12. Elderly fall 13. Patient requires hospitalization 12/2017- fall / fx left hip- [facility] eye laser - for glaucoma 14. Under care of multiple providers non [place] pcp- dr ring / DR SILVA - [facility] facility orthopedic - fracture hip 15. COPD - Chronic Obstructive Pulmonary Disease ([facility] [id number]) d/ c smoking 8 months 16. HTN - Hypertension ([facility] [id number]) 17. Spinal Stenosis of Lumbar Region ([facility] [id number]) 18. Solitary Nodule of Lung ([facility] [id number]) [place] CT 05/03/2012 19. Asbestos-induced pleural plaque labs: none performed vitals: B/P: 162/62 (01/08/2024 10:03)- repeat 170/85 pulse: 63 (01/08/2024 10:03) resp: 16 (01/08/2024 10:03) temp: 98.1 F [36.7 C] (01/08/2024 10:03) Ht: 68 in [172.7 cm] (06/20/2023 09:55) Wgt: 178 lb [80.74 kg] (01/08/2024 10:03) BMI: BMI: 27.1 exam: RRR S1 S2 rhonchi diffusely- mostly clears with cough good air flow throughout- no wheezing A/P: Active problems - Computerized Problem List is the source for the followin. Multinodular goiter 2. History of carotid endarterectomy Right carotid endarderectomy 07/18/21 @[facility], following with Vascular 3. Cerebrovascular accident 4. Coronary atherosclerosis following with [facility] cardiology, 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, near syncope. on b-shiloh and long acting nitrate and low dose lisnopril 5. HTN- elevated BP- will increase lisinopril form 5 mg to 10 mg. just got 90 day supply- will start taking 10 mg daily 6. COPD - Chronic Obstructive Pulmonary Disease ([facility] [id number]) doesn;t want to use inhalers- don;t feel like they make a difference f/u in 3 weeks to recheck BP- elevated today - increased lisinopril to 10 mg daily. will do pre-op for catarct at that visit. visit: MODERATE complexity visit where 30 minutes was spent in direct patient care, review of records and documentation.t type: /catalina/ RUBI CROWE D.O. PHYSICIAN Signed: 01/08/2024 10:31 RUBI CROWE [facility] [place] [facility] Jan 08, 2024 10:07 AM PREVENTIVE MEDICIN E NURSING NOTE: LOCAL TITLE: CLINICAL REMINDERS/NURSING STANDARD TITLE: PREVENTIVE MEDICINE NURSING NOTE DATE OF NOTE: JAN 08, 2024@10:07 ENTRY DATE: JAN 08, 2024@10:07:53 AUTHOR: MARIA FERNANDA OLVERA EXP COSIGNER: URGENCY: STATUS: COMPLETED Homelessness/Food Insecurity Screen: In the past 2 months, have you been living in stable housing that you own, rent, or stay in as part of a household? Yes - Living in stable housing. Are you worried or concerned that in the next 2 months you may NOT have stable housing that you own, rent, or stay in as part of a household? No - Not worried about housing near future [employer] reports the following: Within the past 12 months, you worried whether your food would run out before you got money to buy more. Never true Within the past 12 months, the food you bought just didn't last and you didn't have money to get more. Never true Falls & Incontinence Screen: Falls Screen: During the past 12 months, did the patient report any falls? 4. No falls within the past year. Incontinence Screen: During the past 12 months, has the patient has any characteristics of incontinence (ability, voiding, leakage, etc.)? YES - Incontinence is a problem for this patient. Is urinary incontinence NEW for this patient? NO - Incontinence is NOT a new problem. What is the current treatment? medication, incontinent pads Tobacco Use Screening: The patient is a former tobacco user. The patient quit five to less than fifteen years ago. Sexual Orientation: The patient thinks of their sexual orientation as: Straight or Heterosexual /catalina/ MARIA FERNANDA OLVERA LPN License Practical Nurse Signed: 01/08/2024 10:08 MARIA FERNANDA OLVERA [place] [facility]
--- OUTSIDE RECORDS SUMMARY | 2024-08-07 11:25 | XMS_ITS | Encounter Summary ---
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 Role Phone RUBI CROWE Primary Care [...] O MEDEX BRONZ E Jun 06, 2007 [id number] NEVIN WILLIAMSON PATIENT ANTHEM BCBS OF [place] MEDICARE SUPPLEMEN SALVATORE PSUED O MEDEX BRONZ E Jun 06, 2007 [id number] [phone] NEVIN WILLIAMSON PATIENT ANTHEM BCBS OF CT (BLUECARD) MEDICARE SUPPLEMEN [place] PSUED O MEDEX BRONZ E Jun 06, 2007 [id number] [phone] NEVIN WILLIAMSON PATIENT [place] SUPPLEMEN [place] MEDEX BRONZ E Jun 06, 2007 [id number] NEVIN WILLIAMSON PATIENT [place] SUPPLEMEN [place] MEDEX BRONZ E Jun 06, 2007 [id number] NEVIN WILLIAMSON PATIENT MEDICARE (WNR) MEDICARE (M) PART B Jun 06, 2007 PART B [id number] [phone] NEVIN WILLIAMSON PATIENT MEDICARE (WNR) MEDICARE (M) PART B Jun 06, 2007 PART B [id number] [phone] NEVIN WILLIAMSON PATIENT MEDICARE (WNR) MEDICARE (M) PART A Jan 04, 2003 PART A [id number] NEVIN WILLIAMSON PATIENT MEDICARE (WNR) MEDICARE (M) PART B Jan 04, 2003 PART B [id number] NEVIN WILLIAMSON PATIENT MEDICARE (WNR) MEDICARE (M) PART A Jan 04, 2003 PART A [id number] NEVIN WILLIAMSON PATIENT MEDICARE (WNR) MEDICARE (M) PART A Jan 04, 2003 PART A [id number] NEVIN WILLIAMSON PATIENT Selected Encounter This section includes the information on record at [place] for the Encounter. Date/Time Encounter Type Encounter Description Reason Provider Source Jan 08, 2024 10:30 AM OFFICE O/P EST MOD 30 MIN DERMATOLOGY ICD-10-CM R22.1 Localized swelling, mass and lump, neck FRENCH ALFARO [facility] Encounter Template Text not used by [place] Assessments - Encounter Diagnoses This section includes the primary and secondary diagnoses documented for the Encounter. Date/Time Primary/Secondary Diagnosis Diagnosis Name Provider Source Jan 08, 2024 10:57 AM PRIMARY Localized swelling, mass and lump, neck [facility] Jan 08, 2024 10:57 AM SECONDARY Epidermal cyst FRENCH ALFARO [facility] Plan of Treatment: Future Appointments (+ 6 months) and Future Tests (+/- 45 days) The Plan of Treatment section includes future care activities for the patient from all [place] treatmentfacilities. This section includes future appointments and future orders which are active, pending or scheduled. Future Appointments This section includes appointments that were scheduled to occur 6 months from the date of the Encounter, up to a maximum of 20 appointments. The data comes from all [place] treatment facilities. Appointment Date/Time Appointment Type Appointme nt Facility Name Jan 21, 2024 10:30 AM AMBULATORY - NONE [facility] [place] [facility] Jan 31, 2024 02:15 PM AMBULATORY - NONE [facility] [place] [facility] Feb 11, 2024 08:30 AM AMBULATORY - MEDICINE [facility] [place] [facility] Mar 04, 2024 10:30 AM AMBULATORY - MEDICINE [facility] [place] [facility] Apr 17, 2024 10:45 AM AMBULATORY - MEDICINE [facility] [place] [facility] Apr 23, 2024 11:00 AM AMBULATORY - MEDICINE [facility] [place] [facility] Apr 24, 2024 01:45 PM AMBULATORY - MEDICINE [facility] [place] [facility] May 13, 2024 11:00 AM AMBULATORY - MEDICINE [facility] [place] [facility] Jun 23, 2024 10:30 AM AMBULATORY - NONE [facility] [place] [facility] Jun 23, 2024 11:30 AM AMBULATORY - MEDICINE [facility] [place] [facility] Jun 30, 2024 10:00 AM AMBULATORY - MEDICINE [facility] [place] [facility] Lab Results: +/- 30 days of the encounter This section includes the Chemistry and Hematology Lab Results on record with [place] for the patient. Radiology Reports and Pathology Reports are provided separately, in subsequent sections. Lab Results This section contains the Chemistry/Hematology Results that were resulted 30 days before or 30 daysafter the date of the Encounter. Date/Time Source Result Type Result - Unit Interpretation Reference Range Comment Jan 30, 2024 08:55 AM [facility] [place] [facility] BASIC METABOLIC PANEL (non-fasting) Specimen Type: SERUM No comment entered. Ordering Provider: RUBI CROWE Report Released Date/Time: December 26, 2023 08:29 AM Reporting Lab: [facility] [address] [address] [facility] [address] [address] UREA NITROGEN 9 mg/dL 7-25 GLUCOSE 109 mg/dL H 65-100 SODIUM 136 mmol/L 135-145 POTASSIUM 4.1 mmol/L 3.5-5.0 CHLORIDE 106 mmol/L 100-110 CO2 24 meq/L 20-30 CREATININE, Serum 1.01 mg/dL 0.50-1.40 eGFR(CKD-EPI 2020) 72 mL/min >60 Jan 30, 2024 08:55 AM [facility] LIPID PANEL, NON FASTING Specimen Type: SERUM No comment entered. Ordering Provider: RUBI CROWE Report Released Date/Time: December 26, 2023 08:29 AM Reporting Lab: [address] [address] Performing Lab: [address] [address] CHOLESTEROL 91 mg/dL TRIGLYCERIDE 65 mg/dL 0-150 LDL calculated 49 mg/dL 0-129 CHOL/HDL 3.1 HDL CHOLESTEROL 29 mg/dL L 40-60 Jan 30, 2024 08:55 AM [facility] CREATININE (eGFR 2020) Specimen Type: SERUM No comment entered. Ordering Provider: REGINA ALFARO Report Released Date/Time: Jan 28, 2024 02:54 PM Reporting Lab: [facility] [address] [facility] [address] Performing Lab: [address] [address] CREATININE, Serum 0.99 mg/dL 0.50-1.40 eGFR(CKD-EPI 2020) 74 mL/min >60 Vital Signs: All taken on the encounter date This section contains inpatient and outpatient Vital Signs collected on the date of the Encounter. Date/Time Temperature Pulse Blood Pressure Respiratory Rate SP02 Pain Height Weight Body Mass Index Source Jan 08, 2024 10:03 AM 98.1 63 162/62 16 93 5 178 27 [facility] Social History: Smoking Status (Most current) and Tobacco Use (All prior to encounter date) This section includes the most current, and the historical, smoking and tobacco- related health factors from the [place] facility where the Encounter took place. Current Smoking Status This section includes the most current smoking, or tobacco-related health factor, from the [place] facility where the Encounter took place. Date/Time Current Smoking Status Comment [facility] it Jan 08, 2024 10:00 AM VA-TOBACCO FORMER USER [facility] [place] [facility] Tobacco Use History This section includes a history of the smoking, or tobacco-related health factors, that were collected on or before the date of the Encounter. The data comes from the [place] facility where the Encounter took place. Date/Time Smoking Status/Tobac co Use Comment Facility Jan 08, 2024 10:00 AM VA-TOBACCO QUIT 5 TO < 15 YRS [facility] [place] [facility] May 03, 2022 01:00 PM VA-TOBACCO FORMER USER [facility] [place] [facility] May 03, 2022 01:00 PM VA-TOBACCO QUIT 15 YRS OR MORE [facility] [place] [facility] May 17, 2021 09:00 AM VA-TOBACCO FORMER USER [facility] [place] [facility] May 17, 2021 09:00 AM VA-TOBACCO QUIT 15 YRS OR MORE [facility] [place] [facility] May 28, 2020 03:00 PM VA-TOBACCO FORMER USER [facility] [place] [facility] May 28, 2020 03:00 PM VA-TOBACCO QUIT 5 TO < 15 YRS [facility] [place] [facility] Oct 04, 2018 11:04 AM VA-TOBACCO FORMER USER [facility] [place] [facility] Oct 04, 2018 11:04 AM VA-TOBACCO QUIT 1 TO < 5 YRS [facility] [place] [facility] Jan 24, 2018 01:52 PM CURRENT SMOKER [facility] [place] [facility] Jan 24, 2018 01:52 PM QUIT TOBACCO USE IN PAST YEAR quit ciagarettes 3 months ago [facility] [place] [facility] Radiology Reports: +/- 30 days [...] the Encounter. The data comes from all [place] treatment facilities. Date/Time Radiology Report Provider Source Jan 31, 2024 02:[address] NECK SOFT TISSUE W/O CONT: NEVIN WILLIAMSON [id number] -1940 M Exm Date: JAN 31, 2024@14:36 Req Phys: ODALYS ALFARO Pat Loc: CWM/NO/DERMATOLOGY FINE ARTS MODEL AM (Req' Img Loc: NHM/CT Service: Unknown [facility] [place] [facility] , (Case [id number] COMPLETE) CT NECK SOFT TISSUE W/O CONT (CT Detailed) CPT:07328 Reason for Study: follow up of 01/21/24 neck ultrasound for two subq lesions. Clinical History: Date Procedure CPT Status Case # 01/21/2024 ULTRASOUND NECK [id number] Verified 29 (THYROID,HEAD,SOFT TISSUE) Two subcutaneous lesions are seen in the region of palpable abnormalities measurin.5 x 2.0 x 0.7 cm hypoechoic and 1.4 x 1.2 x 0.7 cm. The findings are nonspecific and with CT neck with IV contrast should be considered for further evaluation. Report Status: Verified Date Reported: FEB 06, 2024 Date Verified: FEB 06, 2024 Quality Associate E-Sig: Report: CT OF THE NECK WITHOUT IV CONTRAST: INDICATION: Follow-up of 01/21/2024 neck ultrasound for two subcutaneous lesions. TECHNIQUE: Volumetric CT acquisition through the neck, with axial, coronal and sagittal reformats, was performed at the local [place] facility. 1130 images were received by the [place] National Teleradiology Program (NTP) for interpretation. RADIATION [...] as detailed above. READING PHYSICIAN: Kumar Fonseca -[id number] 02/06/2024 11:16 EDT [facility] [phone] (For Medical Practitioner Use Only) Attention Patients / Veterans: If you have questions or concerns about these test results, please contact your ordering provider or primary care team. Primary Diagnostic Code: SIGNIFICANT ABNORMALITY, ATTN NEEDED Secondary Diagnostic Codes: INCIDENTAL LUNG NODULE(NONSCREENING) Primary Interpreting Staff: RADIOLOGY,OUTSIDE SERVICE, Staff Physician / RADIOLOGY,OUTSIDE SERVICE [facility] Jan 21, 2024 10:21 AM ULTRASOUND NECK (THYROID,HEAD,SOFT TISSUE): NEVIN WILLIAMSON [id number] -1940 M Exm Date: JAN 21, 2024@10:21 Req Phys: ODALYS ALFARO Loc: CWM/NO/DERMATOLOGY FINE ARTS MODEL AM (Req' Img Loc: ULTRASOUND Service: Unknown [facility] , (Case 29 COMPLETE) ULTRASOUND NECK (THYROID,HEAD,SOF(US Detailed) CPT:10857 Reason for Study: posterior neck mass, painful Clinical History: DDx: muscle strain vs lipoma vs other Report Status: Verified Date Reported: JAN 24, 2024 Date Verified: JAN 24, 2024 Quality Associate E-Sig: Report: ULTRASOUND NECK (THYROID,HEAD,SOFT TISSUE) HISTORY: posterior neck mass, painful COMPARISON: None. TECHNIQUE: Sonographic imaging of the neck was performed at the local [place] facility. 10 images were received by the [place] National Teleradiology Program (NTP) for interpretation. FINDINGS/ Impression: Two subcutaneous lesions are seen in the region of palpable abnormalities measurin.5 x 2.0 x 0.7 cm hypoechoic and 1.4 x 1.2 x 0.7 cm. The findings are nonspecific and with CT neck with IV contrast should be considered for further evaluation. READING PHYSICIAN: Manolo Koo M.D. -[id number] 01/24/2024 15:55 EDT [facility] National Teleradiology Program [phone] (For Medical Practitioner Use Only) Attention Patients / Veterans: If you have questions or concerns about these test results, please contact your ordering provider or primary care team. Primary Diagnostic Code: NO ALERT REQUIRED Primary Interpreting Staff: RADIOLOGY,OUTSIDE SERVICE, Staff Physician / RADIOLOGY,OUTSIDE SERVICE [facility] Encounter Notes: All associated encounter notes This section contains the clinical notes associated to the Encounter. Date/Time Encounter Note(s) Provider Source Jan 29, 2024 08:55 AM ADDENDUM: LOCAL TITLE: Addendum STANDARD TITLE: ADDENDUM DATE OF NOTE: JAN 29, 2024@08:55:40 ENTRY DATE: JAN 29, 2024@08:55:41 AUTHOR: JORGE KWON COSIGNER: URGENCY: STATUS: COMPLETED called to report ultrasound was inconclusive and Provider would like a CT scan. agreed to CT scan and will have labs done as well. /catalina/ JORGE KWON LPN LPN Signed: 01/29/2024 08:56 Receipt Acknowledged By: 01/29/2024 10:59 /catalina/ ODALYS ALFARO DNP, DIRECTOR ELECTRICAL ENGINEERING-C NURSE PRACTITIONER --- Original Document --- 01/08/24 DERMATOLOGY CLINIC NOTE: JAN 08, 2024 NEVIN WILLIAMSON Jan 84 PATIENT PHONE - Patient here for FOLLOW UP CHIEF COMPLAINT: Neck lump HPI: Sims reports approx 1 month of a tender mass on the back of his neck. He also has a cyst on the R posterior side of neck that is not a bother to him. 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 He believes he could have pulled a muscle from this incident. denies any other new/changing/bleeding/non-hea ling lesions. REVIEW OF SYSTEMS: Constitutional-neg Skin/Hair/Nails-see HPI DermHx: -Denies h/o MM or NMSC -AKs s/p LN2 Family Hx: Denies known h/o MM PastMedHx: Reviewed. History of Sun Exposure/Sunburns: +bistering hagan in youth Active Outpatient Medications (including Supplies): Active Outpatient Medications Status 1) ATORVASTATIN CALCIUM 80MG TAB TAKE ONE TABLET BY ACTIVE MOUTH ONCE DAILY FOR CHOLESTEROL 2) DICLOFENAC NA 1% TOP GEL APPLY 2 GRAMS TOPICALLY FOUR ACTIVE TIMES A DAY FOR OSTEOARTHRITIS - USE DOSING CARD PROVIDED IN BOX 3) FLUTICASONE PROP 50MCG 120D NASAL INHL INSTILL 1 ACTIVE SPRAY INTO EACH NOSTRIL AT BEDTIME FOR NASAL IRRITATION/INFLAMMATION 4) ISOSORBIDE MONONITRATE 30MG SA TAB TAKE ONE TABLET BY ACTIVE MOUTH ONCE DAILY TO PREVENT ANGINA 5) LATANOPROST 0.005% OPH SOLN INSTILL 1 DROP INTO EACH ACTIVE EYE AT BEDTIME TO REDUCE PRESSURE IN THE EYE 6) LEVETIRACETAM 250MG TAB TAKE ONE TABLET BY MOUTH AT ACTIVE BEDTIME 7) LISINOPRIL 5MG TAB TAKE ONE TABLET BY MOUTH ONCE ACTIVE DAILY FOR HIGH BLOOD PRESSURE TO CONTROL BLOOD PRESSURE 8) METOPROLOL SUCCINATE 25MG SA TAB TAKE ONE TABLET BY ACTIVE MOUTH ONCE DAILY FOR BLOOD PRESSURE/HEART 9) TAMSULOSIN HCL 0.4MG CAP TAKE ONE CAPSULE BY MOUTH AT ACTIVE BEDTIME FOR ENLARGED PROSTATE Active Non-VA Medications Status 1) Non-VA ASPIRIN 81MG EC TAB 81MG BY MOUTH ONCE DAILY ACTIVE 10 Total Medications PHYSICAL EXAM: Mcleod Skintype II General-AxOx3, NAD, pleasant, breathing unlabored, speech clear Focused cutaneous examination, as requested by the patient, including scalp, face, eyes, ears, neck Pertinent findings per below: -R posterior neck with a 1cm firm but fluctuant mobile white/flesh tone nodule with central punctum -central posterior neck with noted generalized inflammation, tenderness, no erythema, abrasion or nodules. Diagnosis/Plan: #Neck Mass -Location: posterior neck -DDx: muscle strain [favor] vs lipoma vs other -ultrasound ordered per request -declines topical lidocaine Rx today, reports he has some at home he can use. -return precautions discussed #Epidermal Inclusion Cyst -Location: R posterior neck -Educated on benign condition. -Sims declines intervention at this time RTC 1 yr as scheduled ~12/2024, sooner PRN * Sims educated to RTC venkat if any new, changing, symptomatic lesions. * Education on sun protection and avoidance strategies was provided. * Differential diagnosis, prescription options and risks/benefits were discussed with the patient, who consented to treatment plan. * Sims consented to photography for documentation if indicated. * A dermatoscope was used during the exam. * NUB = Neoplasm of Uncertain Behavior of Skin ------TIME ESTIMATION To include but not limied to: -Review of medical records -Time spent with patient including obtaining history, physical exam, shared decision making, procedures and counseling -Post visit documentation; HPI and physical exam findings, clinical researching, medical decision making, medication and lab ordering Total estimated time = 30 min ---- Medication Reconciliation: Outpatient: Has the patient been taking medications as documented in the EMLR? YES: The patient has been taking medications as documented in the EMLR. Essential Medication List for Review used to complete this medication reconciliation. INCLUDED IN THIS LIST: Alphabetical list of active outpatient prescriptions dispensed from this [place] (local) and dispensed from another [place] or [facility] facility (remote) as well as inpatient orders (local, pending and active), local clinic medications, locally documented non-VA medications, and local prescriptions that have or been discontinued in the past 90 days. - All changes in medications, including all non-VA/Herbal/OTC medications were entered into CPRS. - If there were any medications the patient should no longer take, they were discontinued. - The patient/caregiver was instructed to update this list, discard old lists, and take this list to the next appointment, whether with a VA or non-VA provider. JLV Link Data on this list may not be complete. Please check JLV. Allergies/ADRs (Tool #5) FACILITY ALLERGY/ADR -------- No Remote Allergy/ADR Data available for this patient [facility] AUGMENTIN [facility] BEE VENOM [facility] HYDROCHLOROTHIAZIDE Med Recon Aliyah (Tool #1) INCLUDED IN THIS LIST: Alphabetical list of active outpatient prescriptions dispensed from this [place] (local) and dispensed from another [place] or [facility] facility (remote) as well as inpatient orders (local pending and active), local clinic medications, locally documented non-VA medications, and local prescriptions that have or been discontinued in the past 90 days. Non-VA Meds Last Documented On: Jun 19, 2022 NOTE The display of VA prescriptions dispensed from another [place] or DoD facility (remote) is limited to active outpatient prescription entries matched to National Drug File at the originating site and may not include some items such as investigational drugs, compounds, etc. NOT INCLUDED IN THIS LIST: Medications self-entered by the patient into personal health records (i.e. Lit Building Directory) are NOT included in this list. Non-VA medications documented outside this [place], remote inpatient orders (regardless of status) and remote clinic medications are NOT included in this list. The patient and provider must always discuss medications the patient is taking, regardless of where the medication was dispensed or obtained. Non-VA ASPIRIN 81MG EC TAB TAKE ONE TABLET BY MOUTH ONCE DAILY OUTPT ATORVASTATIN CALCIUM 80MG TAB (Status = Active) TAKE ONE TABLET BY MOUTH ONCE DAILY FOR CHOLESTEROL Rx# [id number] Last Released: 10/11/23 Qty/Days Supply: Rx Expiration Date: 05/30/24 Refills Remainin OUTPT DICLOFENAC NA 1% TOP GEL (Status = Active) APPLY 2 GRAMS TOPICALLY FOUR TIMES A DAY FOR OSTEOARTHRITIS - USE DOSING CARD PROVIDED IN BOX Rx# [id number] Last Released: 12/20/23 Qty/Days Supply: Rx Expiration Date: 01/18/24 Refills Remainin Indication: FOR JOINT PAIN OUTPT FLUTICASONE PROP 50MCG 120D NASAL INHL (Status = Active) INSTILL 1 SPRAY INTO EACH NOSTRIL AT BEDTIME FOR NASAL IRRITATION/INFLAMMATION Rx# [id number] Last Released: 07/12/23 Qty/Days Supply: 09/04 Rx Expiration Date: 07/04/24 Refills Remainin Indication: FOR NASAL IRRITATION/INFLAMMATION OUTPT ISOSORBIDE MONONITRATE 30MG SA TAB (Status = Active) TAKE ONE TABLET BY MOUTH ONCE DAILY TO PREVENT ANGINA Rx# [id number] Last Released: 11/28/23 Qty/Days Supply: Rx Expiration Date: 05/30/24 Refills Remainin OUTPT LATANOPROST 0.005% OPH SOLN (Status = Discontinued) INSTILL 1 DROP INTO EACH EYE AT BEDTIME TO REDUCE PRESSURE IN THE EYE Rx# [id number] Last Released: 07/04/23 Qty/Days Supply: Rx Expiration Date: 07/04/24 Refills Remainin OUTPT LATANOPROST 0.005% OPH SOLN (Status = Active) INSTILL 1 DROP INTO EACH EYE AT BEDTIME TO REDUCE PRESSURE IN THE EYE Rx# [id number] Last Released: 11/28/23 Qty/Days Supply: 7. Rx Expiration Date: 11/07/24 Refills Remainin OUTPT LEVETIRACETAM 250MG TAB (Status = Active) TAKE ONE TABLET BY MOUTH AT BEDTIME Rx# [id number] Last Released: 11/28/23 Qty/Days Supply: Rx Expiration Date: 07/04/24 Refills Remainin OUTPT LISINOPRIL 5MG TAB (Status = Active) TAKE ONE TABLET BY MOUTH ONCE DAILY FOR HIGH BLOOD PRESSURE TO CONTROL BLOOD PRESSURE Rx# [id number] Last Released: 01/01/24 Qty/Days Supply: Rx Expiration Date: 07/04/24 Refills Remainin Indication: FOR HIGH BLOOD PRESSURE OUTPT METOPROLOL SUCCINATE 25MG SA TAB (Status = Active) TAKE ONE TABLET BY MOUTH ONCE DAILY FOR BLOOD PRESSURE/HEART Rx# [id number] Last Released: 10/11/23 Qty/Days Supply: Rx Expiration Date: 05/30/24 Refills Remainin OUTPT TAMSULOSIN HCL 0.4MG CAP (Status = Active) TAKE ONE CAPSULE BY MOUTH AT BEDTIME FOR ENLARGED PROSTATE Rx# [id number] Last Released: 10/22/23 Qty/Days Supply: Rx Expiration Date: 07/04/24 Refills Remainin Indication: FOR ENLARGED PROSTATE SUPPLIES /catalina/ ODALYS ALFARO DNP, DIRECTOR ELECTRICAL ENGINEERING-C NURSE PRACTITIONER Signed: 01/08/2024 10:58 01/28/2024 ADDENDUM STATUS: COMPLETED DERM CLAIMS ATTORNEY - Please notify that ultrasound was inconclusive and a CT Scan is advised. If he is in agreement, an order can be placed to schedule this test. ====== Date Procedure CPT Status Case # 01/21/2024 ULTRASOUND NECK [id number] Verified 29 (THYROID,HEAD,SOFT TISSUE) Two subcutaneous lesions are seen in the region of palpable abnormalities measurin.5 x 2.0 x 0.7 cm hypoechoic and 1.4 x 1.2 x 0.7 cm. The findings are nonspecific and with CT neck with IV contrast should be considered for further evaluation. READING PHYSICIAN: Manolo Koo M.D. -[id number] 01/24/2024 15:55 EDT [facility] National Teleradiology Program [phone] (For Medical Practitioner Use Only) Attention Patients / Veterans: If you have questions or concerns about these test results, please contact your ordering provider or primary care team. /rowena ALFARO DNP, FNP-C NURSE PRACTITIONER Signed: 01/28/2024 13:39 Receipt Acknowledged By: 01/28/2024 14:40 /rowena TREJO LPN Specialty Care 01/29/2024 08:55 /rowena KWON LPN LPN 01/28/2024 ADDENDUM STATUS: COMPLETED Telephone call to Sims and read him the above message. would like to proceed with the CT. /rowena TREJO LPN Specialty Care Signed: 01/28/2024 14:41 Receipt Acknowledged By: 01/28/2024 14:52 /rowena ALFARO DNP, FNP-C NURSE PRACTITIONER 01/28/2024 ADDENDUM STATUS: COMPLETED Imaging ordered - with IV contrast per Radiology. Labs placed as kidney function is required prior. /rowena ALFARO DNP, FNP-C NURSE PRACTITIONER Signed: 01/28/2024 14:53 Receipt Acknowledged By: 01/28/2024 15:05 /rowena TREJO LPN Specialty Care JORGE KWON [facility] [place] [facility] Jan 28, 2024 02:53 PM ADDENDUM: LOCAL TITLE: Addendum STANDARD TITLE: ADDENDUM DATE OF NOTE: JAN 28, 2024@14:53:02 ENTRY DATE: JAN 28, 2024@14:53:03 AUTHOR: ODALYS ALFARO EXP COSIGNER: URGENCY: STATUS: COMPLETED Imaging ordered - with IV contrast per Radiology. Labs placed as kidney function is required prior. /rowena ALFARO DNP, FNP-C NURSE PRACTITIONER Signed: 01/28/2024 14:53 Receipt Acknowledged By: 01/28/2024 15:05 /es/ JAMEY TREJO LPN Specialty Care --- Original Document --- 01/08/24 DERMATOLOGY CLINIC NOTE: JAN 08, 2024 NEVIN WILLIAMSON Jan 84 PATIENT PHONE - Patient here for FOLLOW UP CHIEF COMPLAINT: Neck lump HPI: Sims reports approx 1 month of a tender mass on the back of his neck. He also has a cyst on the R posterior side of neck that is not a bother to him. 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 He believes he could have pulled a muscle from this incident. denies any other new/changing/bleeding/non-hea ling lesions. REVIEW OF SYSTEMS: Constitutional-neg Skin/Hair/Nails-see HPI DermHx: -Denies h/o MM or NMSC -AKs s/p LN2 Family Hx: Denies known h/o MM PastMedHx: Reviewed. History of Sun Exposure/Sunburns: +bistering hagan in youth Active Outpatient Medications (including Supplies): Active Outpatient Medications Status 1) ATORVASTATIN CALCIUM 80MG TAB TAKE ONE TABLET BY ACTIVE MOUTH ONCE DAILY FOR CHOLESTEROL 2) DICLOFENAC NA 1% TOP GEL APPLY 2 GRAMS TOPICALLY FOUR ACTIVE TIMES A DAY FOR OSTEOARTHRITIS - USE DOSING CARD PROVIDED IN BOX 3) FLUTICASONE PROP 50MCG 120D NASAL INHL INSTILL 1 ACTIVE SPRAY INTO EACH NOSTRIL AT BEDTIME FOR NASAL IRRITATION/INFLAMMATION 4) ISOSORBIDE MONONITRATE 30MG SA TAB TAKE ONE TABLET BY ACTIVE MOUTH ONCE DAILY TO PREVENT ANGINA 5) LATANOPROST 0.005% OPH SOLN INSTILL 1 DROP INTO EACH ACTIVE EYE AT BEDTIME TO REDUCE PRESSURE IN THE EYE 6) LEVETIRACETAM 250MG TAB TAKE ONE TABLET BY MOUTH AT ACTIVE BEDTIME 7) LISINOPRIL 5MG TAB TAKE ONE TABLET BY MOUTH ONCE ACTIVE DAILY FOR HIGH BLOOD PRESSURE TO CONTROL BLOOD PRESSURE 8) METOPROLOL SUCCINATE 25MG SA TAB TAKE ONE TABLET BY ACTIVE MOUTH ONCE DAILY FOR BLOOD PRESSURE/HEART 9) TAMSULOSIN HCL 0.4MG CAP TAKE ONE CAPSULE BY MOUTH AT ACTIVE BEDTIME FOR ENLARGED PROSTATE Active Non-VA Medications Status 1) Non-VA ASPIRIN 81MG EC TAB 81MG BY MOUTH ONCE DAILY ACTIVE 10 Total Medications PHYSICAL EXAM: Mcleod Skintype II General-AxOx3, NAD, pleasant, breathing unlabored, speech clear Focused cutaneous examination, as requested by the patient, including scalp, face, eyes, ears, neck Pertinent findings per below: -R posterior neck with a 1cm firm but fluctuant mobile white/flesh tone nodule with central punctum -central posterior neck with noted generalized inflammation, tenderness, no erythema, abrasion or nodules. Diagnosis/Plan: #Neck Mass -Location: posterior neck -DDx: muscle strain [favor] vs lipoma vs other -ultrasound ordered per request -declines topical lidocaine Rx today, reports he has some at home he can use. -return precautions discussed #Epidermal Inclusion Cyst -Location: R posterior neck -Educated on benign condition. -Sims declines intervention at this time RTC 1 yr as scheduled ~12/2024, sooner PRN * educated to RTC venkat if any new, changing, symptomatic lesions. * Education on sun protection and avoidance strategies was provided. * Differential diagnosis, prescription options and risks/benefits were discussed with the patient, who consented to treatment plan. * consented to photography for documentation if indicated. * A dermatoscope was used during the exam. * NUB = Neoplasm of Uncertain Behavior of Skin ------TIME ESTIMATION To include but not limied to: -Review of medical records -Time spent with patient including obtaining history, physical exam, shared decision making, procedures and counseling -Post visit documentation; HPI and physical exam findings, clinical researching, medical decision making, medication and lab ordering Total estimated time = 30 min ---- Medication Reconciliation: Outpatient: Has the patient been taking medications as documented in the EMLR? YES: The patient has been taking medications as documented in the EMLR. Essential Medication List for Review used to complete this medication reconciliation. INCLUDED IN THIS LIST: Alphabetical list of active outpatient prescriptions dispensed from this [place] (local) and dispensed from another [place] or [facility] facility (remote) as well as inpatient orders (local, pending and active), local clinic medications, locally documented non-VA medications, and local prescriptions that have or been discontinued in the past 90 days. - All changes in medications, including all non-VA/Herbal/OTC medications were entered into CPRS. - If there were any medications the patient should no longer take, they were discontinued. - The patient/caregiver was instructed to update this list, discard old lists, and take this list to the next appointment, whether with a VA or non-VA provider. JLV Link Data on this list may not be complete. Please check Dataslide[employer]. Allergies/ADRs (Tool #5) FACILITY ALLERGY/ADR -------- No Remote Allergy/ADR Data available for this patient [facility] BEE VENOM [facility] HYDROCHLOROTHIAZIDE Med Recon NoGlossary (Tool #1) INCLUDED IN THIS LIST: Alphabetical list of active outpatient prescriptions dispensed from this [facility] (local) and dispensed from another [place] or [facility] facility (remote) as well as inpatient orders (local pending and active), local clinic medications, locally documented non-VA medications, and local prescriptions that have or been discontinued in the past 90 days. Non-VA Meds Last Documented On: Jun 19, 2022 NOTE The display of VA prescriptions dispensed from another [place] or [facility] facility (remote) is limited to active outpatient prescription entries matched to National Drug File at the originating site and may not include some items such as investigational drugs, compounds, etc. NOT INCLUDED IN THIS LIST: Medications self-entered by the patient into personal health records (i.e. Lit Building Directory) are NOT included in this list. Non-VA medications documented outside this [place], remote inpatient orders (regardless of status) and remote clinic medications are NOT included in this list. The patient and provider must always discuss medications the patient is taking, regardless of where the medication was dispensed or obtained. Non-VA ASPIRIN 81MG EC TAB TAKE ONE TABLET BY MOUTH ONCE DAILY OUTPT ATORVASTATIN CALCIUM 80MG TAB (Status = Active) TAKE ONE TABLET BY MOUTH ONCE DAILY FOR CHOLESTEROL Rx# [id number] Last Released: 10/11/23 Qty/Days Supply: Rx Expiration Date: 05/30/24 Refills Remainin OUTPT DICLOFENAC NA 1% TOP GEL (Status = Active) APPLY 2 GRAMS TOPICALLY FOUR TIMES A DAY FOR OSTEOARTHRITIS - USE DOSING CARD PROVIDED IN BOX Rx# [id number] Last Released: 12/20/23 Qty/Days Supply: Rx Expiration Date: 01/18/24 Refills Remainin Indication: FOR JOINT PAIN OUTPT FLUTICASONE PROP 50MCG 120D NASAL INHL (Status = Active) INSTILL 1 SPRAY INTO EACH NOSTRIL AT BEDTIME FOR NASAL IRRITATION/INFLAMMATION Rx# [id number] Last Released: 07/12/23 Qty/Days Supply: 09/04 Rx Expiration Date: 07/04/24 Refills Remainin Indication: FOR NASAL IRRITATION/INFLAMMATION OUTPT ISOSORBIDE MONONITRATE 30MG SA TAB (Status = Active) TAKE ONE TABLET BY MOUTH ONCE DAILY TO PREVENT ANGINA Rx# [id number] Last Released: 11/28/23 Qty/Days Supply: Rx Expiration Date: 05/30/24 Refills Remainin OUTPT LATANOPROST 0.005% OPH SOLN (Status = Discontinued) INSTILL 1 DROP INTO EACH EYE AT BEDTIME TO REDUCE PRESSURE IN THE EYE Rx# [id number] Last Released: 07/04/23 Qty/Days Supply: Rx Expiration Date: 07/04/24 Refills Remainin OUTPT LATANOPROST 0.005% OPH SOLN (Status = Active) INSTILL 1 DROP INTO EACH EYE AT BEDTIME TO REDUCE PRESSURE IN THE EYE Rx# [id number] Last Released: 11/28/23 Qty/Days Supply: Rx Expiration Date: 11/07/24 Refills Remainin OUTPT LEVETIRACETAM 250MG TAB (Status = Active) TAKE ONE TABLET BY MOUTH AT BEDTIME Rx# [id number] Last Released: 11/28/23 Qty/Days Supply: Rx Expiration Date: 07/04/24 Refills Remainin OUTPT LISINOPRIL 5MG TAB (Status = Active) TAKE ONE TABLET BY MOUTH ONCE DAILY FOR HIGH BLOOD PRESSURE TO CONTROL BLOOD PRESSURE Rx# [id number] Last Released: 01/01/24 Qty/Days Supply: Rx Expiration Date: 07/04/24 Refills Remainin Indication: FOR HIGH BLOOD PRESSURE OUTPT METOPROLOL SUCCINATE 25MG SA TAB (Status = Active) TAKE ONE TABLET BY MOUTH ONCE DAILY FOR BLOOD PRESSURE/HEART Rx# [id number] Last Released: 10/11/23 Qty/Days Supply: Rx Expiration Date: 05/30/24 Refills Remainin OUTPT TAMSULOSIN HCL 0.4MG CAP (Status = Active) TAKE ONE CAPSULE BY MOUTH AT BEDTIME FOR ENLARGED PROSTATE Rx# [id number] Last Released: 10/22/23 Qty/Days Supply: Rx Expiration Date: 07/04/24 Refills Remainin Indication: FOR ENLARGED PROSTATE SUPPLIES /catalina/ ODALYS ALFARO DNP, FNP-C NURSE PRACTITIONER Signed: 01/08/2024 10:58 01/28/2024 ADDENDUM STATUS: COMPLETED DERM CLAIMS ATTORNEY - Please notify that ultrasound was inconclusive and a CT Scan is advised. If he is in agreement, an order can be placed to schedule this test. ====== Date Procedure CPT Status Case # 01/21/2024 ULTRASOUND NECK [id number] Verified 29 (THYROID,HEAD,SOFT TISSUE) Two subcutaneous lesions are seen in the region of palpable abnormalities measurin.5 x 2.0 x 0.7 cm hypoechoic and 1.4 x 1.2 x 0.7 cm. The findings are nonspecific and with CT neck with IV contrast should be considered for further evaluation. READING PHYSICIAN: Manolo Koo M.D. -[id number] 01/24/2024 15:55 EDT [facility] National Teleradiology Program [phone] (For Medical Practitioner Use Only) Attention Patients / Veterans: If you have questions or concerns about these test results, please contact your ordering provider or primary care team. /catalina/ ODALYS ALFARO DNP, FNP-C NURSE PRACTITIONER Signed: 01/28/2024 13:39 Receipt Acknowledged By: 01/28/2024 14:40 /catalina/ JAMEY TREJO LPN Specialty [facility] * AWAITING SIGNATURE * JORGE KWON 01/28/2024 ADDENDUM STATUS: COMPLETED Telephone call to and read him the above message. would like to proceed with the CT. /catalina/ JAMEY TREJO LPN Specialty Care Signed: 01/28/2024 14:41 Receipt Acknowledged By: 01/28/2024 14:52 /rowena ALFARO DNP, DIRECTOR ELECTRICAL ENGINEERING-C NURSE PRACTITIONER ODALYS [facility]O [facility] Jan 28, 2024 02:40 PM ADDENDUM: LOCAL TITLE: Addendum STANDARD TITLE: ADDENDUM DATE OF NOTE: JAN 28, 2024@14:40:44 ENTRY DATE: JAN 28, 2024@14:40:45 AUTHOR: JAMEY TREJO COSIGNER: URGENCY: STATUS: COMPLETED Telephone call to Sims and read him the above message. Sims would like to proceed with the CT. /catalina/ JAMEY TREJO LPN Specialty Care Signed: 01/28/2024 14:41 Receipt Acknowledged By: 01/28/2024 14:52 /rowena ALFARO DNP, DIRECTOR ELECTRICAL ENGINEERING-C NURSE PRACTITIONER --- Original Document --- 01/08/24 DERMATOLOGY CLINIC NOTE: JAN 08, 2024 NEVIN WILLIAMSON Jan 84 PATIENT PHONE - Patient here for FOLLOW UP CHIEF COMPLAINT: Neck lump HPI: Sims reports approx 1 month of a tender mass on the back of his neck. He also has a cyst on the R posterior side of neck that is not a bother to him. 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 He believes he could have pulled a muscle from this incident. Sims denies any other new/changing/bleeding/non-hea ling lesions. REVIEW OF SYSTEMS: Constitutional-neg Skin/Hair/Nails-see HPI DermHx: -Denies h/o MM or NMSC -AKs s/p LN2 Family Hx: Denies known h/o MM PastMedHx: Reviewed. History of Sun Exposure/Sunburns: +bistering hagan in youth Active Outpatient Medications (including Supplies): Active Outpatient Medications Status 1) ATORVASTATIN CALCIUM 80MG TAB TAKE ONE TABLET BY ACTIVE MOUTH ONCE DAILY FOR CHOLESTEROL 2) DICLOFENAC NA 1% TOP GEL APPLY 2 GRAMS TOPICALLY FOUR ACTIVE TIMES A DAY FOR OSTEOARTHRITIS - USE DOSING CARD PROVIDED IN BOX 3) FLUTICASONE PROP 50MCG 120D NASAL INHL INSTILL 1 ACTIVE SPRAY INTO EACH NOSTRIL AT BEDTIME FOR NASAL IRRITATION/INFLAMMATION 4) ISOSORBIDE MONONITRATE 30MG SA TAB TAKE ONE TABLET BY ACTIVE MOUTH ONCE DAILY TO PREVENT ANGINA 5) LATANOPROST 0.005% OPH SOLN INSTILL 1 DROP INTO EACH ACTIVE EYE AT BEDTIME TO REDUCE PRESSURE IN THE EYE 6) LEVETIRACETAM 250MG TAB TAKE ONE TABLET BY MOUTH AT ACTIVE BEDTIME 7) LISINOPRIL 5MG TAB TAKE ONE TABLET BY MOUTH ONCE ACTIVE DAILY FOR HIGH BLOOD PRESSURE TO CONTROL BLOOD PRESSURE 8) METOPROLOL SUCCINATE 25MG SA TAB TAKE ONE TABLET BY ACTIVE MOUTH ONCE DAILY FOR BLOOD PRESSURE/HEART 9) TAMSULOSIN HCL 0.4MG CAP TAKE ONE CAPSULE BY MOUTH AT ACTIVE BEDTIME FOR ENLARGED PROSTATE Active Non-VA Medications Status 1) Non-VA ASPIRIN 81MG EC TAB 81MG BY MOUTH ONCE DAILY ACTIVE 10 Total Medications PHYSICAL EXAM: Mcleod Skintype II General-AxOx3, NAD, pleasant, breathing unlabored, speech clear Focused cutaneous examination, as requested by the patient, including scalp, face, eyes, ears, neck Pertinent findings per below: -R posterior neck with a 1cm firm but fluctuant mobile white/flesh tone nodule with central punctum -central posterior neck with noted generalized inflammation, tenderness, no erythema, abrasion or nodules. Diagnosis/Plan: #Neck Mass -Location: posterior neck -DDx: muscle strain [favor] vs lipoma vs other -ultrasound ordered per request -declines topical lidocaine Rx today, reports he has some at home he can use. -return precautions discussed #Epidermal Inclusion Cyst -Location: R posterior neck -Educated on benign condition. -Sims declines intervention at this time RTC 1 yr as scheduled ~12/2024, sooner PRN * educated to RTC venkat if any new, changing, symptomatic lesions. * Education on sun protection and avoidance strategies was provided. * Differential diagnosis, prescription options and risks/benefits were discussed with the patient, who consented to treatment plan. * Sims consented to photography for documentation if indicated. * A dermatoscope was used during the exam. * NUB = Neoplasm of Uncertain Behavior of Skin ------TIME ESTIMATION To include but not limied to: -Review of medical records -Time spent with patient including obtaining history, physical exam, shared decision making, procedures and counseling -Post visit documentation; HPI and physical exam findings, clinical researching, medical decision making, medication and lab ordering Total estimated time = 30 min ---- Medication Reconciliation: Outpatient: Has the patient been taking medications as documented in the EMLR? YES: The patient has been taking medications as documented in the EMLR. Essential Medication List for Review used to complete this medication reconciliation. INCLUDED IN THIS LIST: Alphabetical list of active outpatient prescriptions dispensed from this [facility] (local) and dispensed from another [place] or [facility] facility (remote) as well as inpatient orders (local, pending and active), local clinic medications, locally documented non-VA medications, and local prescriptions that have or been discontinued in the past 90 days. - All changes in medications, including all non-VA/Herbal/OTC medications were entered into CPRS. - If there were any medications the patient should no longer take, they were discontinued. - The patient/caregiver was instructed to update this list, discard old lists, and take this list to the next appointment, whether with a VA or non-VA provider. JLV Link Data on this list may not be complete. Please check JLV. Allergies/ADRs (Tool #5) FACILITY ALLERGY/ADR -------- No Remote Allergy/ADR Data available for this patient [facility] BEE VENOM [facility] HYDROCHLOROTHIAZIDE Med Recon NoGlossary (Tool #1) INCLUDED IN THIS LIST: Alphabetical list of active outpatient prescriptions dispensed from this [facility] (local) and dispensed from another [place] or [facility] facility (remote) as well as inpatient orders (local pending and active), local clinic medications, locally documented non-VA medications, and local prescriptions that have or been discontinued in the past 90 days. Non-VA Meds Last Documented On: Jun 19, 2022 NOTE The display of VA prescriptions dispensed from another VA or [facility] facility (remote) is limited to active outpatient prescription entries matched to National Drug File at the originating site and may not include some items such as investigational drugs, compounds, etc. NOT INCLUDED IN THIS LIST: Medications self-entered by the patient into personal health records (i.e. Lit Building Directory) are NOT included in this list. Non-VA medications documented outside this [place], remote inpatient orders (regardless of status) and remote clinic medications are NOT included in this list. The patient and provider must always discuss medications the patient is taking, regardless of where the medication was dispensed or obtained. Non-VA ASPIRIN 81MG EC TAB TAKE ONE TABLET BY MOUTH ONCE DAILY OUTPT ATORVASTATIN CALCIUM 80MG TAB (Status = Active) TAKE ONE TABLET BY MOUTH ONCE DAILY FOR CHOLESTEROL Rx# [id number] Last Released: 10/11/23 Qty/Days Supply: Rx Expiration Date: 05/30/24 Refills Remainin OUTPT DICLOFENAC NA 1% TOP GEL (Status = Active) APPLY 2 GRAMS TOPICALLY FOUR TIMES A DAY FOR OSTEOARTHRITIS - USE DOSING CARD PROVIDED IN BOX Rx# [id number] Last Released: 12/20/23 Qty/Days Supply: Rx Expiration Date: 01/18/24 Refills Remainin Indication: FOR JOINT PAIN OUTPT FLUTICASONE PROP 50MCG 120D NASAL INHL (Status = Active) INSTILL 1 SPRAY INTO EACH NOSTRIL AT BEDTIME FOR NASAL IRRITATION/INFLAMMATION Rx# [id number] Last Released: 07/12/23 Qty/Days Supply: 09/04 Rx Expiration Date: 07/04/24 Refills Remainin Indication: FOR NASAL IRRITATION/INFLAMMATION OUTPT ISOSORBIDE MONONITRATE 30MG SA TAB (Status = Active) TAKE ONE TABLET BY MOUTH ONCE DAILY TO PREVENT ANGINA Rx# [id number] Last Released: 11/28/23 Qty/Days Supply: Rx Expiration Date: 05/30/24 Refills Remainin OUTPT LATANOPROST 0.005% OPH SOLN (Status = Discontinued) INSTILL 1 DROP INTO EACH EYE AT BEDTIME TO REDUCE PRESSURE IN THE EYE Rx# [id number] Last Released: 07/04/23 Qty/Days Supply: Rx Expiration Date: 07/04/24 Refills Remainin OUTPT LATANOPROST 0.005% OPH SOLN (Status = Active) INSTILL 1 DROP INTO EACH EYE AT BEDTIME TO REDUCE PRESSURE IN THE EYE Rx# [id number] Last Released: 11/28/23 Qty/Days Supply: 7. Rx Expiration Date: 11/07/24 Refills Remainin OUTPT LEVETIRACETAM 250MG TAB (Status = Active) TAKE ONE TABLET BY MOUTH AT BEDTIME Rx# [id number] Last Released: 11/28/23 Qty/Days Supply: Rx Expiration Date: 07/04/24 Refills Remainin OUTPT LISINOPRIL 5MG TAB (Status = Active) TAKE ONE TABLET BY MOUTH ONCE DAILY FOR HIGH BLOOD PRESSURE TO CONTROL BLOOD PRESSURE Rx# [id number] Last Released: 01/01/24 Qty/Days Supply: Rx Expiration Date: 07/04/24 Refills Remainin Indication: FOR HIGH BLOOD PRESSURE OUTPT METOPROLOL SUCCINATE 25MG SA TAB (Status = Active) TAKE ONE TABLET BY MOUTH ONCE DAILY FOR BLOOD PRESSURE/HEART Rx# [id number] Last Released: 10/11/23 Qty/Days Supply: Rx Expiration Date: 05/30/24 Refills Remainin OUTPT TAMSULOSIN HCL 0.4MG CAP (Status = Active) TAKE ONE CAPSULE BY MOUTH AT BEDTIME FOR ENLARGED PROSTATE Rx# [id number] Last Released: 10/22/23 Qty/Days Supply: Rx Expiration Date: 07/04/24 Refills Remainin Indication: FOR ENLARGED PROSTATE SUPPLIES /catalina/ ODALYS ALFARO DNP, DIRECTOR ELECTRICAL ENGINEERING-C NURSE PRACTITIONER Signed: 01/08/2024 10:58 01/28/2024 ADDENDUM STATUS: COMPLETED DERM CLAIMS ATTORNEY - Please notify that ultrasound was inconclusive and a CT Scan is advised. If he is in agreement, an order can be placed to schedule this test. ====== Date Procedure CPT Status Case # 01/21/2024 ULTRASOUND NECK [id number] Verified 29 (THYROID,HEAD,SOFT TISSUE) Two subcutaneous lesions are seen in the region of palpable abnormalities measurin.5 x 2.0 x 0.7 cm hypoechoic and 1.4 x 1.2 x 0.7 cm. The findings are nonspecific and with CT neck with IV contrast should be considered for further evaluation. READING PHYSICIAN: Manolo Koo M.D. -[phone] 01/24/2024 15:55 EDT [facility] Teler[facility] [phone] (For Medical Practitioner Use Only) Attention Patients / Veterans: If you have questions or concerns about these test results, please contact your ordering provider or primary care team. /catalina/ ODALYS ALFARO DNP, DIRECTOR ELECTRICAL ENGINEERING-C NURSE PRACTITIONER Signed: 01/28/2024 13:39 Receipt Acknowledged By: 01/28/2024 14:40 /catalina/ JAMEY TREJO LPN Specialty Care * AWAITING SIGNATURE * KWONJORGE 01/28/2024 ADDENDUM STATUS: UNSIGNED You may not VIEW this UNSIGNED Addendum. JAMEY TREJO [facility] [place] [facility] Jan 28, 2024 01:38 PM ADDENDUM: LOCAL TITLE: Addendum STANDARD TITLE: ADDENDUM DATE OF NOTE: JAN 28, 2024@13:38:05 ENTRY DATE: JAN 28, 2024@13:38:06 AUTHOR: ODALYS ALFARO EXP COSIGNER: URGENCY: STATUS: COMPLETED DERM CLAIMS ATTORNEY - Please notify that ultrasound was inconclusive and a CT Scan is advised. If he is in agreement, an order can be placed to schedule this test. ====== Date Procedure CPT Status Case # 01/21/2024 ULTRASOUND NECK [id number] Verified 29 (THYROID,HEAD,SOFT TISSUE) Two subcutaneous lesions are seen in the region of palpable abnormalities measurin.5 x 2.0 x 0.7 cm hypoechoic and 1.4 x 1.2 x 0.7 cm. The findings are nonspecific and with CT neck with IV contrast should be considered for further evaluation. READING PHYSICIAN: Manolo Koo M.D. -[id number] 01/24/2024 15:55 EDT [facility] [phone] (For Medical Practitioner Use Only) Attention Patients / Veterans: If you have questions or concerns about these test results, please contact your ordering provider or primary care team. /catalina/ ODALYS ALFARO DNP, DIRECTOR ELECTRICAL ENGINEERING-C NURSE PRACTITIONER Signed: 01/28/2024 13:39 Receipt Acknowledged By: 01/28/2024 14:40 /es/ JAMEY TREJO LPN Specialty Care 01/29/2024 08:55 /catalina/ JORGE KWON LPN LPN --- Original Document --- 01/08/24 DERMATOLOGY CLINIC NOTE: JAN 08, 2024 NEVIN WILLIAMSON Jan 84 PATIENT PHONE - Patient here for FOLLOW UP CHIEF COMPLAINT: Neck lump HPI: Sims reports approx 1 month of a tender mass on the back of his neck. He also has a cyst on the R posterior side of neck that is not a bother to him. 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 He believes he could have pulled a muscle from this incident. Sims denies any other new/changing/bleeding/non-hea ling lesions. REVIEW OF SYSTEMS: Constitutional-neg Skin/Hair/Nails-see HPI DermHx: -Denies h/o MM or NMSC -AKs s/p LN2 Family Hx: Denies known h/o MM PastMedHx: Reviewed. History of Sun Exposure/Sunburns: +bistering hagan in youth Active Outpatient Medications (including Supplies): Active Outpatient Medications Status 1) ATORVASTATIN CALCIUM 80MG TAB TAKE ONE TABLET BY ACTIVE MOUTH ONCE DAILY FOR CHOLESTEROL 2) DICLOFENAC NA 1% TOP GEL APPLY 2 GRAMS TOPICALLY FOUR ACTIVE TIMES A DAY FOR OSTEOARTHRITIS - USE DOSING CARD PROVIDED IN BOX 3) FLUTICASONE PROP 50MCG 120D NASAL INHL INSTILL 1 ACTIVE SPRAY INTO EACH NOSTRIL AT BEDTIME FOR NASAL IRRITATION/INFLAMMATION 4) ISOSORBIDE MONONITRATE 30MG SA TAB TAKE ONE TABLET BY ACTIVE MOUTH ONCE DAILY TO PREVENT ANGINA 5) LATANOPROST 0.005% OPH SOLN INSTILL 1 DROP INTO EACH ACTIVE EYE AT BEDTIME TO REDUCE PRESSURE IN THE EYE 6) LEVETIRACETAM 250MG TAB TAKE ONE TABLET BY MOUTH AT ACTIVE BEDTIME 7) LISINOPRIL 5MG TAB TAKE ONE TABLET BY MOUTH ONCE ACTIVE DAILY FOR HIGH BLOOD PRESSURE TO CONTROL BLOOD PRESSURE 8) METOPROLOL SUCCINATE 25MG SA TAB TAKE ONE TABLET BY ACTIVE MOUTH ONCE DAILY FOR BLOOD PRESSURE/HEART 9) TAMSULOSIN HCL 0.4MG CAP TAKE ONE CAPSULE BY MOUTH AT ACTIVE BEDTIME FOR ENLARGED PROSTATE Active Non-VA Medications Status 1) Non-VA ASPIRIN 81MG EC TAB 81MG BY MOUTH ONCE DAILY ACTIVE 10 Total Medications PHYSICAL EXAM: Mcleod Skintype II General-AxOx3, NAD, pleasant, breathing unlabored, speech clear Focused cutaneous examination, as requested by the patient, including scalp, face, eyes, ears, neck Pertinent findings per below: -R posterior neck with a 1cm firm but fluctuant mobile white/flesh tone nodule with central punctum -central posterior neck with noted generalized inflammation, tenderness, no erythema, abrasion or nodules. Diagnosis/Plan: #Neck Mass -Location: posterior neck -DDx: muscle strain [favor] vs lipoma vs other -ultrasound ordered per request -declines topical lidocaine Rx today, reports he has some at home he can use. -return precautions discussed #Epidermal Inclusion Cyst -Location: R posterior neck -Educated on benign condition. -Sims declines intervention at this time RTC 1 yr as scheduled ~12/2024, sooner PRN * Sims educated to RTC venkat if any new, changing, symptomatic lesions. * Education on sun protection and avoidance strategies was provided. * Differential diagnosis, prescription options and risks/benefits were discussed with the patient, who consented to treatment plan. * consented to photography for documentation if indicated. * A dermatoscope was used during the exam. * NUB = Neoplasm of Uncertain Behavior of Skin ------TIME ESTIMATION To include but not limied to: -Review of medical records -Time spent with patient including obtaining history, physical exam, shared decision making, procedures and counseling -Post visit documentation; HPI and physical exam findings, clinical researching, medical decision making, medication and lab ordering Total estimated time = 30 min ---- Medication Reconciliation: Outpatient: Has the patient been taking medications as documented in the EMLR? YES: The patient has been taking medications as documented in the EMLR. Essential Medication List for Review used to complete this medication reconciliation. INCLUDED IN THIS LIST: Alphabetical list of active outpatient prescriptions [facility] from [facility] ([facility]) and dispensed from another [place] or [facility] facility (remote) as well as inpatient orders (local, pending and active), local clinic medications, locally documented non-VA medications, and local prescriptions that have or been discontinued in the past 90 days. - All changes in medications, including all non-VA/Herbal/OTC medications were entered into CPRS. - If there were any medications the patient should no longer take, they were discontinued. - The patient/caregiver was instructed to update this list, discard old lists, and take this list to the next appointment, whether with a VA or non-VA provider. JLV Link Data on this list may not be complete. Please check JLV. Allergies/ADRs (Tool #5) FACILITY ALLERGY/ADR -------- No Remote Allergy/ADR Data available for this patient [facility] BEE V[facility] HYDROCHLOROTHIAZIDE Med Recon NoGloary (Tool #1) INCLUDED IN THIS LIST: Alphabetical list of active outpatient prescriptions dispensed from this [facility] (local) and dispensed from another [place] or [facility] facility (remote) as well as inpatient orders (local pending and active), local clinic medications, locally documented non-VA medications, and local prescriptions that have or been discontinued in the past 90 days. Non-VA Meds Last Documented On: Jun 19, 2022 NOTE The display of VA prescriptions dispensed from another VA or [facility]D facility (remote) is limited to active outpatient prescription entries matched to National Drug File at the originating site and may not include some items such as investigational drugs, compounds, etc. NOT INCLUDED IN THIS LIST: Medications self-entered by the patient into personal health records (i.e. Lit Building Directory) are NOT included in this list. Non-VA medications documented outside this [place], remote inpatient orders (regardless of status) and remote clinic medications are NOT included in this list. The patient and provider must always discuss medications the patient is taking, regardless of where the medication was dispensed or obtained. Non-VA ASPIRIN 81MG EC TAB TAKE ONE TABLET BY MOUTH ONCE DAILY OUTPT ATORVASTATIN CALCIUM 80MG TAB (Status = Active) TAKE ONE TABLET BY MOUTH ONCE DAILY FOR CHOLESTEROL Rx# [id number] Last Released: 10/11/23 Qty/Days Supply: Rx Expiration Date: 05/30/24 Refills Remainin OUTPT DICLOFENAC NA 1% TOP GEL (Status = Active) APPLY 2 GRAMS TOPICALLY FOUR TIMES A DAY FOR OSTEOARTHRITIS - USE DOSING CARD PROVIDED IN BOX Rx# [id number] Last Released: 12/20/23 Qty/Days Supply: Rx Expiration Date: 01/18/24 Refills Remainin Indication: FOR JOINT PAIN OUTPT FLUTICASONE PROP 50MCG 120D NASAL INHL (Status = Active) INSTILL 1 SPRAY INTO EACH NOSTRIL AT BEDTIME FOR NASAL IRRITATION/INFLAMMATION Rx# [id number] Last Released: 07/12/23 Qty/Days Supply: 09/04 Rx Expiration Date: 07/04/24 Refills Remainin Indication: FOR NASAL IRRITATION/INFLAMMATION OUTPT ISOSORBIDE MONONITRATE 30MG SA TAB (Status = Active) TAKE ONE TABLET BY MOUTH ONCE DAILY TO PREVENT ANGINA Rx# [id number] Last Released: 11/28/23 Qty/Days Supply: Rx Expiration Date: 05/30/24 Refills Remainin OUTPT LATANOPROST 0.005% OPH SOLN (Status = Discontinued) INSTILL 1 DROP INTO EACH EYE AT BEDTIME TO REDUCE PRESSURE IN THE EYE Rx# [id number] Last Released: 07/04/23 Qty/Days Supply: Rx Expiration Date: 07/04/24 Refills Remainin OUTPT LATANOPROST 0.005% OPH SOLN (Status = Active) INSTILL 1 DROP INTO EACH EYE AT BEDTIME TO REDUCE PRESSURE IN THE EYE Rx# [id number] Last Released: 11/28/23 Qty/Days Supply: 7. Rx Expiration Date: 11/07/24 Refills Remainin OUTPT LEVETIRACETAM 250MG TAB (Status = Active) TAKE ONE TABLET BY MOUTH AT BEDTIME Rx# [id number] Last Released: 11/28/23 Qty/Days Supply: Rx Expiration Date: 07/04/24 Refills Remainin OUTPT LISINOPRIL 5MG TAB (Status = Active) TAKE ONE TABLET BY MOUTH ONCE DAILY FOR HIGH BLOOD PRESSURE TO CONTROL BLOOD PRESSURE Rx# [id number] Last Released: 01/01/24 Qty/Days Supply: Rx Expiration Date: 07/04/24 Refills Remainin Indication: FOR HIGH BLOOD PRESSURE OUTPT METOPROLOL SUCCINATE 25MG SA TAB (Status = Active) TAKE ONE TABLET BY MOUTH ONCE DAILY FOR BLOOD PRESSURE/HEART Rx# [id number] Last Released: 10/11/23 Qty/Days Supply: Rx Expiration Date: 05/30/24 Refills Remainin OUTPT TAMSULOSIN HCL 0.4MG CAP (Status = Active) TAKE ONE CAPSULE BY MOUTH AT BEDTIME FOR ENLARGED PROSTATE Rx# [id number] Last Released: 10/22/23 Qty/Days Supply: Rx Expiration Date: 07/04/24 Refills Remainin Indication: FOR ENLARGED PROSTATE SUPPLIES /catalina/ ODALYS ALFARO DNP, MUMTAZ-C NURSE PRACTITIONER Signed: 01/08/2024 10:58 01/28/2024 ADDENDUM STATUS: COMPLETED Telephone call to Sims and read him the above message. Sims would like to proceed with the CT. /catalina/ JAMEY TREJO LPN Specialty Care Signed: 01/28/2024 14:41 Receipt Acknowledged By: 01/28/2024 14:52 /catalina/ ODALYS ALFARO DNP, MUMTAZ-Tricia NURSE PRACTITIONER 01/28/2024 ADDENDUM STATUS: COMPLETED Imaging ordered - with IV contrast per Radiology. Labs placed as kidney function is required prior. /catalina/ ODALYS ALFARO DNP, DIRECTOR ELECTRICAL ENGINEERING-C NURSE PRACTITIONER Signed: 01/28/2024 14:53 Receipt Acknowledged By: 01/28/2024 15:05 /catalina/ JAMEY TREJO LPN Specialty Care ODALYS ALFARO [facility] Jan 08, 2024 10:37 AM DERMATOLOGY OUTPATIENT NOTE: LOCAL TITLE: DERMATOLOGY CLINIC NOTE STANDARD TITLE: DERMATOLOGY OUTPATIENT NOTE DATE OF NOTE: JAN 08, 2024@10:37 ENTRY DATE: JAN 08, 2024@10:37:12 AUTHOR: ODALYS ALFARO EXP COSIGNER: URGENCY: STATUS: COMPLETED DERMATOLOGY CLINIC NOTE Has ADDENDA JAN 08, 2024 NEVIN WILLIAMSON Jan 84 PATIENT PHONE - Patient here for FOLLOW UP CHIEF COMPLAINT: Neck lump HPI: reports approx 1 month of a tender mass on the back of his neck. He also has a cyst on the R posterior side of neck that is not a bother to him. 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 He believes he could have pulled a muscle from this incident. denies any other new/changing/bleeding/non-hea ling lesions. REVIEW OF SYSTEMS: Constitutional-neg Skin/Hair/Nails-see HPI DermHx: -Denies h/o MM or NMSC -AKs s/p LN2 Family Hx: Denies known h/o MM PastMedHx: Reviewed. History of Sun Exposure/Sunburns: +bistering hagan in youth Active Outpatient Medications (including Supplies): Active Outpatient Medications Status 1) ATORVASTATIN CALCIUM 80MG TAB TAKE ONE TABLET BY ACTIVE MOUTH ONCE DAILY FOR CHOLESTEROL 2) DICLOFENAC NA 1% TOP GEL APPLY 2 GRAMS TOPICALLY FOUR ACTIVE TIMES A DAY FOR OSTEOARTHRITIS - USE DOSING CARD PROVIDED IN BOX 3) FLUTICASONE PROP 50MCG 120D NASAL INHL INSTILL 1 ACTIVE SPRAY INTO EACH NOSTRIL AT BEDTIME FOR NASAL IRRITATION/INFLAMMATION 4) ISOSORBIDE MONONITRATE 30MG SA TAB TAKE ONE TABLET BY ACTIVE MOUTH ONCE DAILY TO PREVENT ANGINA 5) LATANOPROST 0.005% OPH SOLN INSTILL 1 DROP INTO EACH ACTIVE EYE AT BEDTIME TO REDUCE PRESSURE IN THE EYE 6) LEVETIRACETAM 250MG TAB TAKE ONE TABLET BY MOUTH AT ACTIVE BEDTIME 7) LISINOPRIL 5MG TAB TAKE ONE TABLET BY MOUTH ONCE ACTIVE DAILY FOR HIGH BLOOD PRESSURE TO CONTROL BLOOD PRESSURE 8) METOPROLOL SUCCINATE 25MG SA TAB TAKE ONE TABLET BY ACTIVE MOUTH ONCE DAILY FOR BLOOD PRESSURE/HEART 9) TAMSULOSIN HCL 0.4MG CAP TAKE ONE CAPSULE BY MOUTH AT ACTIVE BEDTIME FOR ENLARGED PROSTATE Active Non-VA Medications Status 1) Non-VA ASPIRIN 81MG EC TAB 81MG BY MOUTH ONCE DAILY ACTIVE 10 Total Medications PHYSICAL EXAM: Mcleod Skintype II General-AxOx3, NAD, pleasant, breathing unlabored, speech clear Focused cutaneous examination, as requested by the patient, including scalp, face, eyes, ears, neck Pertinent findings per below: -R posterior neck with a 1cm firm but fluctuant mobile white/flesh tone nodule with central punctum -central posterior neck with noted generalized inflammation, tenderness, no erythema, abrasion or nodules. Diagnosis/Plan: #Neck Mass -Location: posterior neck -DDx: muscle strain [favor] vs lipoma vs other -ultrasound ordered per request -declines topical lidocaine Rx today, reports he has some at home he can use. -return precautions discussed #Epidermal Inclusion Cyst -Location: R posterior neck -Educated on benign condition. - declines intervention at this time RTC 1 yr as scheduled ~12/2024, sooner PRN * Sims educated to RTC venkat if any new, changing, symptomatic lesions. * Education on sun protection and avoidance strategies was provided. * Differential diagnosis, prescription options and risks/benefits were discussed with the patient, who consented to treatment plan. * Sims consented to photography for documentation if indicated. * A dermatoscope was used during the exam. * NUB = Neoplasm of Uncertain Behavior of Skin ------TIME ESTIMATION To include but not limied to: -Review of medical records -Time spent with patient including obtaining history, physical exam, shared decision making, procedures and counseling -Post visit documentation; HPI and physical exam findings, clinical researching, medical decision making, medication and lab ordering Total estimated time = 30 min ---- Medication Reconciliation: Outpatient: Has the patient been taking medications as documented in the EMLR? YES: The patient has been taking medications as documented in the EMLR. Essential Medication List for Review used to complete this medication reconciliation. INCLUDED IN THIS LIST: Alphabetical list of active outpatient prescriptions dispensed from this [facility] (local) and dispensed from another [place] or [facility] facility (remote) as well as inpatient orders (local, pending and active), local clinic medications, locally documented non-VA medications, and local prescriptions that have or been discontinued in the past 90 days. - All changes in medications, including all non-VA/Herbal/OTC medications were entered into CPRS. - If there were any medications the patient should no longer take, they were discontinued. - The patient/caregiver was instructed to update this list, discard old lists, and take this list to the next appointment, whether with a VA or non-VA provider. JLV Link Data on this list may not be complete. Please check JLShopIt. Allergies/ADRs (Tool #5) FACILITY ALLERGY/ADR -------- No Remote Allergy/ADR Data available for this patient [facility] B[facility] HYDROCHLOROTHIAZIDE Med Recon NoGlossary (Tool #1) INCLUDED IN THIS LIST: Alphabetical list of active outpatient prescriptions dispensed from this [place] (local) and dispensed from another [place] or [facility] facility (remote) as well as inpatient orders (local pending and active), local clinic medications, locally documented non-VA medications, and local prescriptions that have or been discontinued in the past 90 days. Non-VA Meds Last Documented On: Jun 19, 2022 NOTE The display of VA prescriptions dispensed from another [place] or [facility] facility (remote) is limited to active outpatient prescription entries matched to National Drug File at the originating site and may not include some items such as investigational drugs, compounds, etc. NOT INCLUDED IN THIS LIST: Medications self-entered by the patient into personal health records (i.e. Lit Building Directory) are NOT included in this list. Non-VA medications documented outside this [place], remote inpatient orders (regardless of status) and remote clinic medications are NOT included in this list. The patient and provider must always discuss medications the patient is taking, regardless of where the medication was dispensed or obtained. Non-VA ASPIRIN 81MG EC TAB TAKE ONE TABLET BY MOUTH ONCE DAILY OUTPT ATORVASTATIN CALCIUM 80MG TAB (Status = Active) TAKE ONE TABLET BY MOUTH ONCE DAILY FOR CHOLESTEROL Rx# [id number] Last Released: 10/11/23 Qty/Days Supply: Rx Expiration Date: 05/30/24 Refills Remainin OUTPT DICLOFENAC NA 1% TOP GEL (Status = Active) APPLY 2 GRAMS TOPICALLY FOUR TIMES A DAY FOR OSTEOARTHRITIS - USE DOSING CARD PROVIDED IN BOX Rx# [id number] Last Released: 12/20/23 Qty/Days Supply: 100/30 Rx Expiration Date: 01/18/24 Refills Remainin Indication: FOR JOINT PAIN OUTPT FLUTICASONE PROP 50MCG 120D NASAL INHL (Status = Active) INSTILL 1 SPRAY INTO EACH NOSTRIL AT BEDTIME FOR NASAL IRRITATION/INFLAMMATION Rx# [id number] Last Released: 07/12/23 Qty/Days Supply: 09/04 Rx Expiration Date: 07/04/24 Refills Remainin Indication: FOR NASAL IRRITATION/INFLAMMATION OUTPT ISOSORBIDE MONONITRATE 30MG SA TAB (Status = Active) TAKE ONE TABLET BY MOUTH ONCE DAILY TO PREVENT ANGINA Rx# [id number] Last Released: 11/28/23 Qty/Days Supply: Rx Expiration Date: 05/30/24 Refills Remainin OUTPT LATANOPROST 0.005% OPH SOLN (Status = Discontinued) INSTILL 1 DROP INTO EACH EYE AT BEDTIME TO REDUCE PRESSURE IN THE EYE Rx# [id number] Last Released: 07/04/23 Qty/Days Supply: Rx Expiration Date: 07/04/24 Refills Remainin OUTPT LATANOPROST 0.005% OPH SOLN (Status = Active) INSTILL 1 DROP INTO EACH EYE AT BEDTIME TO REDUCE PRESSURE IN THE EYE Rx# [id number] Last Released: 11/28/23 Qty/Days Supply: . Rx Expiration Date: 11/07/24 Refills Remainin OUTPT LEVETIRACETAM 250MG TAB (Status = Active) TAKE ONE TABLET BY MOUTH AT BEDTIME Rx# [id number] Last Released: 11/28/23 Qty/Days Supply: Rx Expiration Date: 07/04/24 Refills Remainin OUTPT LISINOPRIL 5MG TAB (Status = Active) TAKE ONE TABLET BY MOUTH ONCE DAILY FOR HIGH BLOOD PRESSURE TO CONTROL BLOOD PRESSURE Rx# [id number] Last Released: 01/01/24 Qty/Days Supply: Rx Expiration Date: 07/04/24 Refills Remainin Indication: FOR HIGH BLOOD PRESSURE OUTPT METOPROLOL SUCCINATE 25MG SA TAB (Status = Active) TAKE ONE TABLET BY MOUTH ONCE DAILY FOR BLOOD PRESSURE/HEART Rx# [id number] Last Released: 10/11/23 Qty/Days Supply: Rx Expiration Date: 05/30/24 Refills Remainin OUTPT TAMSULOSIN HCL 0.4MG CAP (Status = Active) TAKE ONE CAPSULE BY MOUTH AT BEDTIME FOR ENLARGED PROSTATE Rx# [id number] Last Released: 10/22/23 Qty/Days Supply: Rx Expiration Date: 07/04/24 Refills Remainin Indication: FOR ENLARGED PROSTATE SUPPLIES /catalina/ ODALYS ALFARO DNP, DIRECTOR ELECTRICAL ENGINEERING-C NURSE PRACTITIONER Signed: 01/08/2024 10:58 01/28/2024 ADDENDUM STATUS: COMPLETED DERM CLAIMS ATTORNEY - Please notify that ultrasound was inconclusive and a CT Scan is advised. If he is in agreement, an order can be placed to schedule this test. ====== Date Procedure CPT Status Case # 01/21/2024 ULTRASOUND NECK [id number] Verified 29 (THYROID,HEAD,SOFT TISSUE) Two subcutaneous lesions are seen in the region of palpable abnormalities measurin.5 x 2.0 x 0.7 cm hypoechoic and 1.4 x 1.2 x 0.7 cm. The findings are nonspecific and with CT neck with IV contrast should be considered for further evaluation. READING PHYSICIAN: Manolo Koo M.D. -[phone] 01/24/2024 15:55 EDT [facility] [phone] (For Medical Practitioner Use Only) Attention Patients / Veterans: If you have questions or concerns about these test results, please contact your ordering provider or primary care team. /rowena ALFARO DNP, MORE NURSE PRACTITIONER Signed: 01/28/2024 13:39 Receipt Acknowledged By: 01/28/2024 14:40 /rowena TREJO LPN Specialty Care 01/29/2024 08:55 /rowena KWON LPN LPN 01/28/2024 ADDENDUM STATUS: COMPLETED Telephone call to Sims and read him the above message. Sims would like to proceed with the CT. /rowena TREJO LPN Specialty Care Signed: 01/28/2024 14:41 Receipt Acknowledged By: 01/28/2024 14:52 /rowena ALFARO DNP, FNP-C NURSE PRACTITIONER 01/28/2024 ADDENDUM STATUS: COMPLETED Imaging ordered - with IV contrast per Radiology. Labs placed as kidney function is required prior. /rowena ALFARO DNP, MORE NURSE PRACTITIONER Signed: 01/28/2024 14:53 Receipt Acknowledged By: 01/28/2024 15:05 /rowena TREJO LPN Specialty Care 01/29/2024 ADDENDUM STATUS: COMPLETED called to report ultrasound was inconclusive and Provider would like a CT scan. Sims agreed to CT scan and will have labs done as well. /rowena KWON LPN LPN Signed: 01/29/2024 08:56 Receipt Acknowledged By: * AWAITING SIGNATURE * ODALYS ALFARO [facility] [facility]
--- OUTSIDE RECORDS SUMMARY | 2024-08-07 11:26 | XMS_ITS | Encounter Summary ---
Author Name [facility] [place] Organization [facility] [place] Address [address] [place] [address] Care Team Providers Care Law Clerk Name Role Phone RUBI CROWE Primary Care [...] O MEDEX BRONZ E Jun 06, 2007 [id number] NEVIN WILLIAMSON PATIENT ANTHEM BCBS OF [place] MEDICARE SUPPLEMEN SALVATORE PSUED O MEDEX BRONZ E Jun 06, 2007 [id number] NEVIN WILLIAMSON PATIENT ANTHEM BCBS OF CT (BLUECARD) MEDICARE SUPPLEMEN [place] PSUED O MEDEX BRONZ E Jun 06, 2007 [id number] NEVIN WILLIAMSON PATIENT [place] MED[place] SUPPLEMEN [place] MEDEX BRONZ E Jun 06, 2007 [id number] NEVIN WILLIAMSON PATIENT [place] MEDEX BRONZ E Jun 06, 2007 [id number] NEVIN WILLIAMSON PATIENT MEDICARE (WNR) MEDICARE (M) PART B Jun 06, 2007 PART B [id number] [phone] NEVIN WILLIAMSON PATIENT MEDICARE (WNR) MEDICARE (M) PART B Jun 06, 2007 PART B [id number] NEVIN WILLIAMSON PATIENT MEDICARE (WNR) MEDICARE (M) PART A Jan 04, 2003 PART A [id number] [phone] NEVIN WILLIAMSON PATIENT MEDICARE (WNR) MEDICARE (M) PART B Jan 04, 2003 PART B [id number] NEVIN WILLIAMSON PATIENT MEDICARE (WNR) MEDICARE (M) PART A Jan 04, 2003 PART A [id number] NEVIN WILLIAMSON PATIENT MEDICARE (WNR) MEDICARE (M) PART A Jan 04, 2003 PART A [id number] [phone] NEVIN WILLIAMSON PATIENT Selected Encounter This section includes the information on record at [place] for the Encounter. Date/Time Encounter Type Encounter Description Reason Provider Source Feb 06, 2024 11:33 AM Outpatient Encounter TELEPHONE/MEDICIN E ICD-10-CM L72.0 Epidermal cyst FRENCH ALFARO [place] Encounter Template Text not used by [place] Assessments - Encounter Diagnoses This section includes the primary and secondary diagnoses documented for the Encounter. Date/Time Primary/Secondary Diagnosis Diagnosis Name Provider Source Feb 06, 2024 11:33 AM PRIMARY Epidermal cyst FRENCH LAFARO [facility] [place] [facility] Feb 06, 2024 11:33 AM SECONDARY Enlarged lymph nodes, unspecified FRENCH ALFARO [place] [facility] [place] [facility] Feb 06, 2024 11:33 AM SECONDARY Solitary pulmonary nodule [facility] [place] [facility] Plan of Treatment: Future Appointments (+ 6 months) and Future Tests (+/- 45 days) The Plan of Treatment section includes future care activities for the patient from all [place] treatmentfacilities. This section includes future appointments and future orders which are active, pending or scheduled. Future Appointments This section includes appointments that were scheduled to occur 6 months from the date of the Encounter, up to a maximum of 20 appointments. The data comes from all [place] treatment facilities. Appointment Date/Time Appointment Type Appointme nt Facility Name Feb 11, 2024 08:30 AM AMBULATORY - MEDICINE IN [facility] [place] [facility] Mar 04, 2024 10:30 AM AMBULATORY - MEDICINE IN C [facility] [place] [facility] Apr 17, 2024 10:45 AM AMBULATORY - MEDICINE IN C [facility] [place] [facility] Apr 23, 2024 11:00 AM AMBULATORY - MEDICINE [place] [facility] [place] [facility] Apr 24, 2024 01:45 PM AMBULATORY - MEDICINE IN C [facility] [place] [facility] May 13, 2024 11:00 AM AMBULATORY - MEDICINE IN C [facility] [place] [facility] Jun 23, 2024 10:30 AM AMBULATORY - NONE [facility] [place] [facility] Jun 23, 2024 11:30 AM AMBULATORY - MEDICINE IN C [facility] [place] [facility] Jun 30, 2024 10:00 AM AMBULATORY - MEDICINE IN C [facility] [place] [facility] Aug 04, 2024 09:30 AM AMBULATORY - MEDICINE IN C [facility] [place] [facility] Lab Results: +/- 30 days of the encounter This section includes the Chemistry and Hematology Lab Results on record with [place] for the patient. Radiology Reports and Pathology Reports are provided separately, in subsequent sections. Lab Results This section contains the Chemistry/Hematology Results that were resulted 30 days before or 30 daysafter the date of the Encounter. Date/Time Source Result Type Result - Unit Interpretation Reference Range Comment Jan 30, 2024 08:55 AM [place] [facility] BASIC METABOLIC PANEL (non-fasting) Specimen Type: SERUM No comment entered. Ordering Provider: RUBI CROWE Report Released Date/Time: December 26, 2023 08:29 AM Reporting Lab: [facility] [address] [address] Performing Lab: [address] [address] UREA NITROGEN 9 mg/dL 7-25 GLUCOSE 109 mg/dL H 65-100 SODIUM 136 mmol/L 135-145 POTASSIUM 4.1 mmol/L 3.5-5.0 CHLORIDE 106 mmol/L 100-110 CO2 24 meq/L 20-30 CREATININE, Serum 1.01 mg/dL 0.50-1.40 eGFR(CKD-EPI 2020) 72 mL/min >60 Jan 30, 2024 08:55 AM [facility] LIPID PANEL, NON FASTING Specimen Type: SERUM No comment entered. Ordering Provider: RUBI CROWE Report Released Date/Time: December 26, 2023 08:29 AM Reporting Lab: [facility] [address] [facility] [address] Performing Lab: [address] [address] CHOLESTEROL 91 mg/dL TRIGLYCERIDE 65 mg/dL 0-150 LDL calculated 49 mg/dL 0-129 CHOL/HDL 3.1 HDL CHOLESTEROL 29 mg/dL L 40-60 Jan 30, 2024 08:55 AM [facility] CREATININE (eGFR 2020) Specimen Type: SERUM No comment entered. Ordering Provider: REGINA ALFARO Report Released Date/Time: Jan 28, 2024 02:54 PM Reporting Lab: [facility] [address] [facility] [address] Performing Lab: [address] [address] CREATININE, Serum 0.99 mg/dL 0.50-1.40 eGFR(CKD-EPI 2020) 74 mL/min >60 Social History: Smoking Status (Most current) and Tobacco Use (All prior to encounter date) This section includes the most current, and the historical, smoking and tobacco- related health factors from the [place] facility where the Encounter took place. Current Smoking Status This section includes the most current smoking, or tobacco-related health factor, from the [place] facility where the Encounter took place. Date/Time Current Smoking Status Comment Facil [facility] Jan 08, 2024 10:00 AM VA-TOBACCO FORMER USER [facility] Tobacco Use History This section includes a history of the smoking, or tobacco-related health factors, that were collected on or before the date of the Encounter. The data comes from the [place] facility where the Encounter took place. Date/Time Smoking Status/Tobac co Use Comment Facility Jan 08, 2024 10:00 AM VA-TOBACCO QUIT 5 TO < 15 YRS [facility] [place] [facility] May 03, 2022 01:00 PM VA-TOBACCO FORMER USER [facility] [place] [facility] May 03, 2022 01:00 PM VA-TOBACCO QUIT 15 YRS OR MORE [facility] [place] [facility] May 17, 2021 09:00 AM VA-TOBACCO FORMER USER [facility] [place] [facility] May 17, 2021 09:00 AM VA-TOBACCO QUIT 15 YRS OR MORE [facility] [place] [facility] May 28, 2020 03:00 PM VA-TOBACCO FORMER USER [facility] [place] [facility] May 28, 2020 03:00 PM VA-TOBACCO QUIT 5 TO < 15 YRS [facility] [place] [facility] Oct 04, 2018 11:04 AM VA-TOBACCO FORMER USER [facility] [place] [facility] Oct 04, 2018 11:04 AM VA-TOBACCO QUIT 1 TO < 5 YRS [facility] [place] [facility] Jan 24, 2018 01:52 PM CURRENT SMOKER [facility] [place] [facility] Jan 24, 2018 01:52 PM QUIT TOBACCO USE IN PAST YEAR quit ciagarettes 3 months ago [place] [facility] [place] [facility] Radiology Reports: +/- 30 days [...] the Encounter. The data comes from all [place] treatment facilities. Date/Time Radiology Report Provider Source Jan 31, 2024 02:[address] NECK SOFT TISSUE W/O CONT: NEVIN WILLIAMSON [id number] -[id number] M Exm Date: JAN 31, 2024@14:36 Req Phys: ODALYS ALFARO Pat Loc: CWM/NO/DERMATOLOGY FUNCTIONAL DIRECTOR AM (Req' Img Loc: NHM/CT Service: Unknown [facility] [place] [facility] , (Case [id number] COMPLETE) CT NECK SOFT TISSUE W/O CONT (CT Detailed) CPT:74318 Reason for Study: follow up of 01/21/24 neck ultrasound for two subq lesions. Clinical History: Date Procedure CPT Status Case # 01/21/2024 ULTRASOUND NECK [id number] Verified 29 (THYROID,HEAD,SOFT TISSUE) Two subcutaneous lesions are seen in the region of palpable abnormalities measurin.5 x 2.0 x 0.7 cm hypoechoic and 1.4 x 1.2 x 0.7 cm. The findings are nonspecific and with CT neck with IV contrast should be considered for further evaluation. Report Status: Verified Date Reported: FEB 06, 2024 Date Verified: FEB 06, 2024 Production Operations Manager E-Sig: Report: CT OF THE NECK WITHOUT IV CONTRAST: INDICATION: Follow-up of 01/21/2024 neck ultrasound for two subcutaneous lesions. TECHNIQUE: Volumetric CT acquisition through the neck, with axial, coronal and sagittal reformats, [facility]. 1130 images were received by the [place] National Teleradiology Program (NTP) for interpretation. RADIATION [...] as detailed above. READING PHYSICIAN: Kumar Fonseca -[id number] 02/06/2024 11:16 EDT [facility] National Teleradiology Program [phone] (For Medical Practitioner Use Only) Attention Patients / Veterans: If you have questions or concerns about these test results, please contact your ordering provider or primary care team. Primary Diagnostic Code: SIGNIFICANT ABNORMALITY, ATTN NEEDED Secondary Diagnostic Codes: INCIDENTAL LUNG NODULE(NONSCREENING) Primary Interpreting Staff: RADIOLOGY,OUTSIDE SERVICE, Staff Physician / RADIOLOGY,OUTSIDE SERVICE [place] [facility] [place] [facility] Jan 21, 2024 10:21 AM ULTRASOUND NECK (THYROID,HEAD,SOFT TISSUE): CYCARINANEVIN Penny [id number] -[id number] M Exm Date: JAN 21, 2024@10:21 Req Phys: ODALYS ALFARO Pat Loc: CWM/NO/DERMATOLOGY FUNCTIONAL DIRECTOR AM (Req' Img Loc: ULTRASOUND Service: Unknown [facility] , (Case 29 COMPLETE) ULTRASOUND NECK (THYROID,HEAD,SOF(US Detailed) CPT:09232 Reason for Study: posterior neck mass, painful Clinical History: DDx: muscle strain vs lipoma vs other Report Status: Verified Date Reported: JAN 24, 2024 Date Verified: JAN 24, 2024 Production Operations Manager E-Sig: Report: ULTRASOUND NECK (THYROID,HEAD,SOFT TISSUE) HISTORY: posterior neck mass, painful COMPARISON: None. TECHNIQUE: Sonographic imaging of the neck was performed at the local [place] facility. 10 images were received by the [place] National Teleradiology Program (NTP) for interpretation. FINDINGS/ Impression: Two subcutaneous lesions are seen in the region of palpable abnormalities measurin.5 x 2.0 x 0.7 cm hypoechoic and 1.4 x 1.2 x 0.7 cm. The findings are nonspecific and with CT neck with IV contrast should be considered for further evaluation. READING PHYSICIAN: Manolo Koo M.D. -[id number] 01/24/2024 15:55 EDT [facility] National Teleradiology Program [phone] (For Medical Practitioner Use Only) Attention Patients / Veterans: If you have questions or concerns about these test results, please contact your ordering provider or primary care team. Primary Diagnostic Code: NO ALERT REQUIRED Primary Interpreting Staff: RADIOLOGY,OUTSIDE SERVICE, Staff Physician / RADIOLOGY,OUTSIDE SERVICE [facility] Encounter Notes: All associated encounter notes This section contains the clinical notes associated to the Encounter. Date/Time Encounter Note(s) Provider Source Feb 06, 2024 11:33 AM TELEPHONE ENCOUNTER NOTE: LOCAL TITLE: TELEPHONE NOTE/SPECIALTY CLINIC STANDARD TITLE: TELEPHONE ENCOUNTER NOTE DATE OF NOTE: FEB 06, 2024@11:33 ENTRY DATE: FEB 06, 2024@11:33:50 AUTHOR: ODALYS ALFARO EXP COSIGNER: URGENCY: STATUS: COMPLETED S:Called NEVIN Francis [place], PATIENT PHONE - re: CT Results O: Spoke with , confirmed Name and SSN, discussed CT results: IMAGING IMPRESSION Date Procedure CPT Status Case # 01/31/2024 CT NECK SOFT TISSUE W/O CONT [id number] Verified 380 Subcutaneous lesion in the right-side of the [...] as detailed above. READING PHYSICIAN: Kumar Fonseca -[id number] 02/06/2024 11:16 EDT [facility] Teleradiology Program [phone] (For Medical Practitioner Use Only) Attention Patients / Veterans: If you have questions or concerns about these test results, please contact your ordering provider or primary care team. 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 Clinical correlation and follow-up is advised.' -Alerting PCP to findings for further evaluation and management as needed. Total Time Spent on Tele Visit: 15 min /catalina/ ODALYS ALFARO DNP, BACK PAD INSPECTOR-C NURSE PRACTITIONER Signed: 02/06/2024 12:52 Receipt Acknowledged By: 02/06/2024 16:24 /catalina/ RUBI CROWE D.O. PHYSICIAN 02/06/2024 14:28 /catalina/ JERRY MCCARTNEY RN REGISTERED NURSE ODALYS ALFARO [facility]
--- OUTSIDE RECORDS SUMMARY | 2024-08-07 11:26 | XMS_ITS ---
Author Name [facility] [place] Organization [facility] Address [address] [place] [id number] Care Team Providers Care Stabilizing Machine Operator Name Role Phone RUBI CROWE Primary [...] O MEDEX BRONZ E Jun 06, 2007 [id number] NEVIN WILLIAMSON PATIENT ANTHEM BCBS OF CT MEDICARE SUPPLEMEN [place] PSUED O MEDEX BRONZ E Jun 06, 2007 [id number] NEVIN WILLIAMSON PATIENT ANTHEM BCBS OF CT (BLUECARD) MEDICARE SUPPLEMEN [place] PSUED O MEDEX BRONZ E Jun 06, 2007 [id number] NEVIN WILLIAMSON PATIENT [place]PP[place] MEDEX BRONZ E Jun 06, 2007 [id number] NEVIN WILLIAMSON [place] MEDEX BRONZ E Jun 06, 2007 [id number] [phone] NEVIN WILLIAMSON PATIENT MEDICARE (WNR) MEDICARE (M) PART B Jun 06, 2007 PART B [id number] NEVIN WILLIAMSON PATIENT MEDICARE (WNR) MEDICARE (M) PART B Jun 06, 2007 PART B [id number] NEVIN WILLIAMSON PATIENT MEDICARE (WNR) MEDICARE (M) PART A Jan 04, 2003 PART A [id number] NEVIN WILLIAMSON PATIENT MEDICARE (WNR) MEDICARE (M) PART A Jan 04, 2003 PART A [id number] NEVIN WILLIAMSON PATIENT MEDICARE (WNR) MEDICARE (M) PART B Jan 04, 2003 PART B [id number] NEVIN WILLIAMSON PATIENT MEDICARE (WNR) MEDICARE (M) PART A Jan 04, 2003 PART A [id number] NEVIN WILLIAMSON PATIENT Selected Encounter This section includes the information on record at [place] for the Encounter. Date/Time Encounter Type Encounter Description Reason Pro vider Source Mar 11, 2024 03:19 PM Outpatient Encounter PRIMARY CARE/MEDICINE IHE Encounter Template Text not used by [place] Plan of Treatment: Future Appointments (+ 6 [...] Date/Time Appointment Type Appointme nt Facility Name Apr 17, 2024 10:45 AM AMBULATORY - [place]ICINE [place] [facility] [place] [facility] Apr 23, 2024 11:00 AM AMBULATORY - [place]ICINE [place] [facility] [place] [facility] Apr 24, 2024 01:45 PM AMBULATORY - [place]ICINE [place] [facility] [place] [facility] May 13, 2024 11:00 AM AMBULATORY - MEDICINE [facility] [place] [facility] Jun 23, 2024 10:30 AM AMBULATORY - NONE [facility] [place] [facility] Jun 23, 2024 11:30 AM AMBULATORY - MEDICINE [place] [facility] [place] [facility] Jun 30, 2024 10:00 AM AMBULATORY - MEDICINE [place] [facility] [place] [facility] Aug 04, 2024 09:30 AM AMBULATORY - MEDICINE [place] [facility] [place] [facility] Aug 12, 2024 11:00 AM AMBULATORY - MEDICINE [place] [facility] [place] [facility] Aug 14, 2024 09:00 AM AMBULATORY - MEDICINE [place] [facility] [place] [facility] Social History: Smoking Status (Most [...] took place. Date/Time Current Smoking Status Comment [facility] Jan 08, 2024 10:00 AM VA-TOBACCO FORMER USER [place] [facility] [place] [facility] Tobacco Use History This section includes a history of the smoking, or tobacco-related health factors, that were collected on or before the date of the Encounter. The data comes from the [place] facility where the Encounter took place. Date/Time Smoking Status/Tobac co Use Comment [facility] Jan 08, 2024 10:00 AM VA-TOBACCO QUIT 5 TO < 15 YRS [facility] [place] [facility] May 03, 2022 01:00 PM VA-TOBACCO FORMER USER [facility] [place] [facility] May 03, 2022 01:00 PM VA-TOBACCO QUIT 15 YRS OR MORE [facility] [place] [facility] May 17, 2021 09:00 AM VA-TOBACCO FORMER USER [facility] [place] [facility] May 17, 2021 09:00 AM VA-TOBACCO QUIT 15 YRS OR MORE [facility] [place] [facility] May 28, 2020 03:00 PM VA-TOBACCO FORMER USER [facility] [place] [facility] May 28, 2020 03:00 PM VA-TOBACCO QUIT 5 TO < 15 YRS [facility] [place] [facility] Oct 04, 2018 11:04 AM VA-TOBACCO FORMER USER [place] [facility] [place] [facility] Oct 04, 2018 11:04 AM VA-TOBACCO QUIT 1 TO < 5 YRS [place] [facility] [place] [facility] Jan 24, 2018 01:52 PM CURRENT SMOKER [place] [facility] [place] [facility] Jan 24, 2018 01:52 PM QUIT TOBACCO USE IN PAST YEAR [facility] Encounter Notes: All associated encounter notes This section contains the clinical notes associated to the Encounter. Date/Time Encounter Note(s) Provider Source Mar 11, 2024 03:22 PM ADDENDUM: LOCAL TITLE: Addendum STANDARD TITLE: ADDENDUM DATE OF NOTE: MAR 11, 2024@15:22:56 ENTRY DATE: MAR 11, 2024@15:22:57 AUTHOR: STACIA PORTILLO EXP COSIGNER: URGENCY: STATUS: COMPLETED Additional imaging with CT scan or MRI should be considered for further evaluation if there is clinical concern for fracture or other underlying pathology. /catalina/ STACIA PORTILLO Registered Nurse Signed: 03/11/2024 15:23 Receipt Acknowledged By: 03/11/2024 16:20 /catalina/ RUBI CROWE D.O. PHYSICIAN --- Original Document --- 03/11/24 FAX/MAIL RECEIVED: Document Received On: Mar Document Type: Emergency Department Note Date of Service: Mar Facility and or Provider: [facility] Contact Information: PCP of Record: RUBI CROWE Next visit with PCP: 06/23/2024 10:30 NHM/ENDOCRINE 08/12/2024 11:00 CWM/NO/PODIATRY/NAIL 08/13/2024 11:00 CWM/NO/PACT EIGHT 08/14/2024 09:00 CWM/NO/OPTOMETRY/ALTHEA 12/11/2024 10:00 CWM/NO/DERMATOLOGY STEEL FABRICATING SUPERVISOR AM Primary Care May keep copies of this document for up to 14 days and send the original for scanning. Pt took a fall, left sided pain radiating down left leg. order: lumbar spine 2-3v Impression: 1. Evidence of healing of previously identified left femur fracture involving the greater trochanter and upper to mid intertrochanteric region. There is oblique lucency along the lateral aspect of the left femoral neck with surrounding sclerosis/callus which may be related to old fracture, but superimposed more recent fracture should also be considered in the appropriate clinical setting. 2. Status post posterior fixation at L4-L5 with bilateral pedicular screws and rods. Grade 1 anterolisthesis of L4 and L5 with moderate loss of disc space height and interdisc device. 3. Multilevel lumbar spondylosis is most severe at L2-L3. 4. Additional imaging with CT scan or MRI should be considered for further evaluation if there is clinical concern for fracture or other underlying pathology. /catalina/ STACIA PORTILLO Registered Nurse Signed: 03/11/2024 15:22 Receipt Acknowledged By: 03/11/2024 16:20 /catalina/ RUBI CROWE D.O. PHYSICIAN STACIA PORTILLO [place] [facility] [place] [facility] Mar 11, 2024 03:19 PM ADMINISTRATIVE NOTE: LOCAL TITLE: FAX/MAIL RECEIVED STANDARD TITLE: ADMINISTRATIVE NOTE DATE OF NOTE: MAR 11, 2024@15:19 ENTRY DATE: MAR 11, 2024@15:19:14 AUTHOR: STACIA PORTILLO EXP COSIGNER: URGENCY: STATUS: COMPLETED FAX/MAIL RECEIVED Has ADDENDA Document Received On: Mar Document Type: Emergency Department Note Date of Service: Mar Facility and or Provider: [facility] Contact Information: PCP of Record: RUBI CROWE Next visit with PCP: 06/23/2024 10:30 NHM/ENDOCRINE 08/12/2024 11:00 CWM/NO/PODIATRY/NAIL 08/13/2024 11:00 CWM/NO/PACT EIGHT 08/14/2024 09:00 CWM/NO/OPTOMETRY/ALTHEA 12/11/2024 10:00 CWM/NO/DERMATOLOGY STEEL FABRICATING SUPERVISOR AM Primary Care May keep copies of this document for up to 14 days and send the original for scanning. Pt took a fall, left sided pain radiating down left leg. order: lumbar spine 2-3v Impression: 1. Evidence of healing of previously identified left femur fracture involving the greater trochanter and upper to mid intertrochanteric region. There is oblique lucency along the lateral aspect of the left femoral neck with surrounding sclerosis/callus which may be related to old fracture, but superimposed more recent fracture should also be considered in the appropriate clinical setting. 2. Status post posterior fixation at L4-L5 with bilateral pedicular screws and rods. Grade 1 anterolisthesis of L4 and L5 with moderate loss of disc space height and interdisc device. 3. Multilevel lumbar spondylosis is most severe at L2-L3. 4. Additional imaging with CT scan or MRI should be considered for further evaluation if there is clinical concern for fracture or other underlying pathology. /rowena PORTILLO Registered Nurse Signed: 03/11/2024 15:22 Receipt Acknowledged By: 03/11/2024 16:20 /rowena CROWE D.O. PHYSICIAN 03/11/2024 ADDENDUM STATUS: COMPLETED Additional imaging with CT scan or MRI should be considered for further evaluation if there is clinical concern for fracture or other underlying pathology. /rowena PORTILLO Registered Nurse Signed: 03/11/2024 15:23 Receipt Acknowledged By: 03/11/2024 16:20 /rowena CROWE D.O. PHYSICIAN STACIA PORTILLO [facility]
--- OUTSIDE RECORDS SUMMARY | 2024-08-07 11:26 | XMS_ITS | Encounter Summary ---
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 Name Role Phone RUBI CROWE Primary Care [...] O MEDEX BRONZ E Jun 06, 2007 [id number] NEVIN WILLIAMSON PATIENT ANTHEM BCBS OF [place] MEDICARE SUPPLEMEN SALVATORE PSUED O MEDEX BRONZ E Jun 06, 2007 [id number] [phone] NEVIN WILLIAMSON PATIENT ANTHEM BCBS OF [place] (BLUECARD) MEDICARE SUPPLEMEN [place]AT[place] PSUED O MEDEX BRONZ E Jun 06, 2007 [id number] NEVIN WILLIAMSON PATIENT [place] SUPPLEMEN [place] MEDEX BRONZ E Jun 06, 2007 [id number] NEVIN WILLIAMSON [place] MEDEX BRONZ E Jun 06, 2007 [id number] [phone] NEVIN WILLIAMSON PATIENT MEDICARE (WNR) MEDICARE (M) PART B Jun 06, 2007 PART B [id number] [phone] NEVIN WILLIAMSON PATIENT MEDICARE (WNR) MEDICARE (M) PART B Jun 06, 2007 PART B [id number] NEVIN WILLIAMSON PATIENT MEDICARE (WNR) MEDICARE (M) PART A Jan 04, 2003 PART A [id number] NEVIN WILLIAMSON PATIENT MEDICARE (WNR) MEDICARE (M) PART A Jan 04, 2003 PART A [id number] NEVIN WILLIAMSON PATIENT MEDICARE (WNR) MEDICARE (M) PART B Jan 04, 2003 PART B [id number] [phone] NEVIN WILLIAMSON PATIENT MEDICARE (WNR) MEDICARE (M) PART A Jan 04, 2003 PART A [id number] [phone] NEVIN WILLIAMSON PATIENT Selected Encounter This section includes the information on record at [place] for the Encounter. Date/Time Encounter Type Encounter Description Reason Provider Source Oct 04, 2023 12:45 PM EXTENDED VISUAL FIELD XM OPTOMETRY ICD-10-CM H40.1131 Primary open-angle glaucoma, bilateral, mild stage [place] [facility] Encounter Template Text not used by [place] Assessments - Encounter Diagnoses This section includes the primary and secondary diagnoses documented for the Encounter. Date/Time Primary/Secondary Diagnosis Diagnosis Name Provider Source Oct 05, 2023 04:00 PM PRIMARY Primary open-angle glaucoma, bilateral, mild stage [place] [facility] Plan of Treatment: Future Appointments (+ 6 months) and Future Tests (+/- 45 days) The Plan of Treatment section includes future care activities for the patient from all [place] treatmentfacilities. This section includes future appointments and future orders which are active, pending or scheduled. Future Appointments This section includes appointments that were scheduled to occur 6 months from the date of the Encounter, up to a maximum of 20 appointments. The data comes from all [place] treatment facilities. Appointment Date/Time Appointment Type Appointme nt Facility Name Oct 10, 2023 06:00 AM [facility] [place] [facility] Oct 24, 2023 08:00 AM AM[facility]IC[facility] [place] [facility] Oct 29, 2023 08:00 AM AM[facility]UL[facility]ICINE [facility] [place] [facility] Dec 04, 2023 10:00 AM AM[facility]ULATORY [facility] MEDICINE [facility] [place] [facility] December 11, 2023 10:00 AM AMBULATORY [facility] MEDICINE [facility] [place] [facility] December 19, 2023 10:15 AM AMBULATORY [facility] MEDICINE [facility] [place] [facility] December 19, 2023 11:00 AM AMBULATORY [facility] MEDICINE [facility] [place] [facility] January 01, 2024 10:40 AM AMBULATORY [facility] MEDICINE [facility] [place] [facility] Jan 08, 2024 10:00 AM AMBULATORY - MEDICINE [facility] [place] [facility] Jan 08, 2024 10:30 AM AM[facility]ULATORY [facility] MEDICINE [facility] [place] [facility] Jan 21, 2024 10:30 AM AMBULATORY - NONE [facility] [place] [facility] Jan 31, 2024 02:15 PM AMBULATORY - NONE [facility] [place] [facility] Feb 11, 2024 08:30 AM AMBULATORY - MEDICINE [facility] [place] [facility] Mar 04, 2024 10:30 AM AMBULATORY - MEDICINE [facility] [place] [facility] Social History: Smoking Status (Most current) and Tobacco Use (All prior to encounter date) This section includes the most current, and the historical, smoking and tobacco- related health factors from the [place] facility where the Encounter took place. Current Smoking Status This section includes the most current smoking, or tobacco-related health factor, from the [place] facility where the Encounter took place. Date/Time Current Smoking Status Comment Facil it May 03, 2022 01:00 PM VA-TOBACCO QUIT 15 YRS OR MORE [place] [facility] [place] [facility] Tobacco Use History This section includes a history of the smoking, or tobacco-related health factors, that were collected on or before the date of the Encounter. The data comes from the [place] facility where the Encounter took place. Date/Time Smoking Status/Tobac co Use Comment Facility May 03, 2022 01:00 PM VA-TOBACCO QUIT 15 YRS OR MORE [place] [facility] [place] [facility] May 17, 2021 09:00 AM VA-TOBACCO FORMER USER [facility] [place] [facility] May 17, 2021 09:00 AM VA-TOBACCO QUIT 15 YRS OR MORE [facility] [place] [facility] May 28, 2020 03:00 PM VA-TOBACCO FORMER USER [facility] [place] [facility] May 28, 2020 03:00 PM VA-TOBACCO QUIT 5 TO < 15 YRS [facility] [place] [facility] Oct 04, 2018 11:04 AM VA-TOBACCO FORMER USER [place] [facility] [place] [facility] Oct 04, 2018 11:04 AM VA-TOBACCO QUIT 1 TO < 5 YRS [facility] [place] [facility] Jan 24, 2018 01:52 PM CURRENT SMOKER [place] [facility] [place] [facility] Jan 24, 2018 01:52 PM QUIT TOBACCO USE IN PAST YEAR quit ciagarettes 3 months ago [place] [facility] [place] [facility] Radiology Reports: +/- 30 days of [...] the Encounter. The data comes from all [place] treatment [facility]. Date/Time Radiology Report Provider Source Oct 04, 2023 01:[address] THORAX W/O CONT: NEVIN WILLIAMSON [id number] -1940 M Exm Date: OCT 04, 2023@13:46 Req Phys: SUMAN PATHAK Loc: CWM/NO/PACT 1 (Req'g Loc) Img Loc: NHM/CT Service: Unknown (Case [id number] COMPLETE) CT THORAX W/O CONT (CT Detailed) CPT:69945 Reason for Study: low dose CT for lung cancer screening Clinical History: Last chest CT was done September 2022 and was stable Report Status: Verified Date Reported: OCT 04, 2023 Date Verified: OCT 04, 2023 Back End Architect E-Sig:/ES/GUILLERMINA NUNES JR Report: Study: Noncontrast CT scan of the chest. Comparison: CT scan the chest from September 20, 2022, September 20, 2021, and May 18, 2021. Thyroid ultrasound from June 19, 2023 and June 01, 2022. TECHNIQUE: Contiguous axial [address] imaging is performed from the lung apices through the lung bases without the administration of intravenous contrast as per standard department protocol. Subsequently, sagittal and coronal reformats were generated. The lack of intravenous contrast inherently limits the evaluation of hilar structures, vascular structures, and abnormal enhancement patterns. Lower than standard dose was utilized limiting sensitivity for fine parenchymal detail. Dose Parameters: CTDI(vol): 2.3 mGy. DLP: 83.9 mGy*cm. Findings: Chest: Lungs: Stable mild to moderate centrilobular paraseptal emphysematous changes with associated scattered parenchymal scarring. Stable centrally calcified 10.2 mm otherwise solid pulmonary nodule within the right upper lobe, 8-106 most consistent with granuloma or hamartoma. Several small scattered stable curvilinear calcified pleural plaques bilaterally. Stable right and left lung base bronchiectatic changes. No pneumothorax. Mild dependent changes are present at the lung bases. Interval resolution of the otherwise previously described pulmonary nodules. Stable large bulla within the left upper lobe with peripheral calcification. No new concerning pulmonary nodule or mass is identified. Pleural: No pleural effusion or thickening. Mediastinum/hilum/lymph nodes: Low-density nodule within the right lobe of the thyroid not as well-seen as on prior imaging. No mediastinal lymphadenopathy by size criteria. No axillary lymphadenopathy by size criteria. Heart and pericardium: The heart size is normal. No pericardial effusion. Vessels: Dense atherosclerotic changes of the thoracic aorta and coronary arteries. Normal caliber thoracic aorta. Chest wall and lower neck: Normal. Included thyroid is normal. Upper abdomen: The visualized abdominal structures appear normal. Skeletal: Degenerative changes of the right glenohumeral joint. Unchanged bone island in the left 4th anterior rib. 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 Exaggerated thoracic kyphosis, unchanged. Impression: No new significant lung abnormality identified, as described above. Primary Diagnostic Code: No immediate attention required Primary Interpreting Staff: GUILLERMINA NUNES JR, Radiologist (Back End Architect) /GUILLERMINA MOTA JR [facility] Encounter Notes: All associated encounter notes This section contains the clinical notes associated to the Encounter. Date/Time Encounter Note(s) Provider Source Oct 04, 2023 02:36 PM OPTOMETRY CONSULT: LOCAL TITLE: CONSULT REPORT/OPTOMETRY VISUAL FIELD STANDARD TITLE: OPTOMETRY CONSULT DATE OF NOTE: OCT 04, 2023@14:36 ENTRY DATE: OCT 04, 2023@14:36:28 AUTHOR: JORGE OH EXP COSIGNER: URGENCY: STATUS: COMPLETED Subjective: Review visual field testing the patient with history of bilateral mild stage open-angle glaucoma previously treated with SLT laser x1 each eye and on latanoprost at bedtime each eye. Objective: Visual field testing right eye shows marginal reliability with high fixation losses as well as false positive errors. Mild global reduction in sensitivity with scattered defects. Inferior nasal edge point defects likely represent trial lens artifact versus true glaucomatous loss. Visual field left eye shows marginal reliability with high fixation losses. Global reduction in sensitivity with scattered defects not definitively glaucomatous in nature. Assessment: Global reduction in sensitivity each eye attributable to visually significant cataracts. There is no evidence of definitive glaucomatous loss either eye. Plan: Continue current treatment with latanoprost at bedtime each eye and plan for consultation for cataract surgery as previously discussed with patient. /catalina/ Jorge Oh OD CHIEF OF OPTOMETRY Signed: 10/05/2023 16:00 JORGE OH [facility]
--- OUTSIDE RECORDS SUMMARY | 2024-08-07 11:26 | XMS_ITS | Encounter Summary ---
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 Driver Name Role Phone RUBI CROWE Primary Care Provider Unavailabl harini Insurance Providers: All historical and current Section [...] O MEDEX BRONZ E Jun 06, 2007 [id number] NEVIN WILLIAMSON PATIENT ANTHEM BCBS OF CT MEDICARE SUPPLEMEN [place] PSUED O MEDEX BRONZ E Jun 06, 2007 [id number] NEVIN WILLIAMSON PATIENT ANTHEM BCBS OF CT (BLUECARD) MEDICARE SUPPLEMEN [place] PSUED O MEDEX BRONZ E Jun 06, 2007 [id number] NEVIN WILLIAMSON [place] MEDEX BRONZ E Jun 06, 2007 [id number] NEVIN WILLIAMSON [place] MEDEX BRONZ E Jun 06, 2007 [id number] NEVIN WILLIAMSON PATIENT MEDICARE (WNR) MEDICARE (M) PART B Jun 06, 2007 PART B [id number] NEVIN WILLIAMSON PATIENT MEDICARE (WNR) MEDICARE (M) PART B Jun 06, 2007 PART B [id number] NEVIN WILLIAMSON PATIENT MEDICARE (WNR) MEDICARE (M) PART A Jan 04, 2003 PART A [id number] [phone] NEVIN WILLIAMSON PATIENT MEDICARE (WNR) MEDICARE (M) PART A Jan 04, 2003 PART A [id number] NEVIN WILLIAMSON PATIENT MEDICARE (WNR) MEDICARE (M) PART A Jan 04, 2003 PART A [id number] [phone] NEVIN WILLIAMSON PATIENT MEDICARE (WNR) MEDICARE (M) PART B Jan 04, 2003 PART B [id number] NEVIN WILLIAMSON PATIENT Selected Encounter This section includes the information on record at [place] for the Encounter. Date/Time Encounter Type Encounter Description Reason Pro vider Source Mar 12, 2024 11:12 AM Outpatient Encounter ADMIN PAT ACTIVTIES (MASNONCT) IHE Encounter Template Text not used by [place] Plan of Treatment: Future Appointments (+ 6 months) and Future Tests (+/- 45 days) The Plan of Treatment section includes future care activities for the patient from all [place] treatmentfacilities. This section includes future appointments and future orders which are active, pending or scheduled. Future Appointments This section includes appointments that were scheduled to occur 6 months from the date of the Encounter, up to a maximum of 20 appointments. The data comes from all [place] treatment facilities. Appointment Date/Time Appointment Type Appointme nt Facility Name Apr 17, 2024 10:45 AM AMBULATORY - MEDICINE [facility] [place] [facility] Apr 23, 2024 11:00 AM AMBULATORY - MEDICINE [facility] [place] [facility] Apr 24, 2024 01:45 PM AMBULATORY [place] MEDICINE [place] [facility] [facility] May 13, 2024 11:00 AM AMBULATORY - MEDICINE [facility] [place] [facility] Jun 23, 2024 10:30 AM AMBULATORY - NONE [facility] [place] [facility] Jun 23, 2024 11:30 AM AMBULATORY - MEDICINE [facility] [place] [facility] Jun 30, 2024 10:00 AM AMBULATORY - MEDICINE [facility] [place] [facility] Aug 04, 2024 09:30 AM AMBULATORY - MEDICINE [facility] [place] [facility] Aug 12, 2024 11:00 AM AMBULATORY - MEDICINE [facility] [place] [facility] Aug 14, 2024 09:00 AM AMBULATORY - MEDICINE [facility] [place] [facility] Social History: Smoking Status (Most current) and Tobacco Use (All prior to encounter date) This section includes the most current, and the historical, smoking and tobacco- related health factors from the [place] facility where the Encounter took place. Current Smoking Status This section includes the most current smoking, or tobacco-related health factor, from the [place] facility where the Encounter took place. Date/Time Current Smoking Status Comment [facility] Jan 08, 2024 10:00 AM VA-TOBACCO QUIT 5 TO < 15 YRS [place] [facility] Tobacco Use History This section includes a history of the smoking, or tobacco-related health factors, that were collected on or before the date of the Encounter. The data comes from the [place] facility where the Encounter took place. Date/Time Smoking Status/Tobac co Use Comment [facility] Jan 08, 2024 10:00 AM VA-TOBACCO QUIT 5 TO < 15 YRS [facility] [place] [facility] May 03, 2022 01:00 PM VA-TOBACCO FORMER USER [facility] [place] [facility] May 03, 2022 01:00 PM VA-TOBACCO QUIT 15 YRS OR MORE [facility] [place] [facility] May 17, 2021 09:00 AM VA-TOBACCO FORMER USER [facility] [place] [facility] May 17, 2021 09:00 AM VA-TOBACCO QUIT 15 YRS OR MORE [facility] [place] [facility] May 28, 2020 03:00 PM VA-TOBACCO FORMER USER [facility] [place] [facility] May 28, 2020 03:00 PM VA-TOBACCO QUIT 5 TO < 15 YRS [place] [facility] [facility] Oct 04, 2018 11:04 AM VA-TOBACCO FORMER USER [place] [facility] [facility] Oct 04, 2018 11:04 AM VA-TOBACCO QUIT 1 TO < 5 YRS [place] [facility] [facility] Jan 24, 2018 01:52 PM [facility] [place] [facility] Jan 24, 2018 01:52 PM QUIT TOBACCO USE IN PAST YEAR quit ciagarettes 3 months ago [facility] Encounter Notes: All associated encounter notes This section contains the clinical notes associated to the Encounter. Date/Time Encounter Note(s) Provider Source Mar 12, 2024 11:13 AM ADMINISTRATIVE NOTE: LOCAL TITLE: CCC: SCHEDULING ADMINISTRATION STANDARD TITLE: ADMINISTRATIVE NOTE DATE OF NOTE: MAR 12, 2024@11:13 ENTRY DATE: MAR 12, 2024@11:13:01 AUTHOR: BUD WOODS EXP COSIGNER: URGENCY: STATUS: COMPLETED CCC: SCHEDULING ADMINISTRATION Has ADDENDA Patient Demographics Patient Name: NEVIN WILLIAMSON Patient Primary Phone: [phone] Patient Primary Address: [address] [place] [address] Patient : 1940 Patient Age: 84 Current Location: home Call Back Number: home Caller/Recipient Relation to Patient: Self Administrative Administrative Note Reason: Outside Care Performed Administrative Note Comments: PT CALLED IN STATES HE WAS SENT BY [place] [facility] ON 03/10/24. HE CALLED IN FROM HIS POST DISCHARGE FOLLOW UP. HE WAS PUT ON T[place]ONOL BUT HE DOESNT HAVE THE BOTTLE. THE PT CAN BE REACHED AT HOME PHONE /catalina/ BUD WOODS Signed: 03/12/2024 11:13 Receipt Acknowledged By: 03/13/2024 11:59 /catalina/ MARIA FERNANDA OLVERA LPN License Practical Nurse 03/13/2024 11:38 /es/ JERRY MCCARTNEY RN REGISTERED NURSE 03/13/2024 ADDENDUM STATUS: COMPLETED Spoke directly to , he reports that the reason he called yesterday was because [facility] hours of use of [facility] on [facility]/10/24. Educated on need to call the [place] [facility] phone number at [phone]. [place] wrote the phone number down and repeated it back to me. He notes that he will call [facility] Act now. /catalina/ JERRY MCCARTNEY RN REGISTERED NURSE Signed: 03/13/2024 11:41 BUD WOODS [place] [facility]
--- OUTSIDE RECORDS SUMMARY | 2024-08-07 11:26 | XMS_ITS ---
Author Name [facility] Address [address] [place] [address] Care Team Providers Care International Marketing Executive Name Role Phone RUBI CROWE Primary Care [...] O MEDEX BRONZ E Jun 06, 2007 [id number] NEVIN WILLIAMSON PATIENT ANTHEM BCBS OF CT MEDICARE SUPPLEMEN SALVATORE PSUED O MEDEX BRONZ E Jun 06, 2007 [id number] NEVIN WILLIAMSON PATIENT ANTHEM BCBS OF CT (BLUECARD) MEDICARE SUPPLEMEN [place] PSUED O MEDEX BRONZ E Jun 06, 2007 [id number] NEVIN WILLIAMSON PATIENT [place] SUPP[place] MEDEX BRONZ E Jun 06, 2007 [id number] [phone] NEVIN WILLIAM[place] MEDEX BRONZ E Jun 06, 2007 [id number] NEVIN WILLIAMSON PATIENT MEDICARE (WNR) MEDICARE (M) PART B Jun 06, 2007 PART B [id number] NEVIN WILLIAMSON PATIENT MEDICARE (WNR) MEDICARE (M) PART B Jun 06, 2007 PART B [id number] NEVIN WILLIAMSON PATIENT MEDICARE (WNR) MEDICARE (M) PART A Jan 04, 2003 PART A [id number] NEVIN WILLIAMSON PATIENT MEDICARE (WNR) MEDICARE (M) PART B Jan 04, 2003 PART B [id number] NEVIN WILLIAMSON PATIENT MEDICARE (WNR) MEDICARE (M) PART A Jan 04, 2003 PART A [id number] NEVIN WILLIAMSON PATIENT MEDICARE (WNR) MEDICARE (M) PART A Jan 04, 2003 PART A [id number] [phone] NEVIN WILLIAMSON PATIENT Selected Encounter This section includes the information on record at [place] for the Encounter. Date/Time Encounter Type Encounter Description Reason Provider Source Feb 11, 2024 08:30 AM OFFICE O/P EST MOD 30 MIN PRIMARY CARE/MEDICINE ICD-10-CM H26.8 Other specified cataract FURCOLO,RUBI E Encounter Template Text not used by [place] Assessments - Encounter Diagnoses This section includes the primary and secondary diagnoses documented for the Encounter. Date/Time Primary/Secondary Diagnosis Diagnosis Name Provider Source Feb 11, 2024 09:06 AM PRIMARY Other specified cataract FURCOLO,RUBI [place] [facility] Plan of Treatment: Future Appointments (+ 6 months) and Future Tests (+/- 45 days) The Plan of Treatment section includes future care activities for the patient from all [place] treatmentfacilities. This section includes future appointments and future orders which are active, pending or scheduled. Future Appointments This section includes appointments that were scheduled to occur 6 months from the date of the Encounter, up to a maximum of 20 appointments. The data comes from all [place] treatment facilities. Appointment Date/Time Appointment Type Appointme nt Facility Name Mar 04, 2024 10:30 AM AMBULATORY - MEDICINE [place] [facility] [place] [facility] Apr 17, 2024 10:45 AM AMBULATORY - MEDICINE [place] [facility] [place] [facility] Apr 23, 2024 11:00 AM AMBULATORY - MEDICINE [place] [facility] [place] [facility] Apr 24, 2024 01:45 PM AMBULATORY - MEDICINE [place] [facility] [place] [facility] May 13, 2024 11:00 AM AMBULATORY - MEDICINE [place] [facility] [place] [facility] Jun 23, 2024 10:30 AM AMBULATORY - NONE [place] [facility] [place] [facility] Jun 23, 2024 11:30 AM AMBULATORY - MEDICINE [place] [facility] [place] [facility] Jun 30, 2024 10:00 AM AMBULATORY - MEDICINE [place] [facility] [place] [facility] Aug 04, 2024 09:30 AM AMBULATORY - MEDICINE [place] [facility] [place] [facility] Aug 12, 2024 11:00 AM [facility] Lab Results: +/- 30 days of the encounter This section includes the Chemistry and Hematology Lab Results on record with [place] for the patient. Radiology Reports and Pathology Reports are provided separately, in subsequent sections. Lab Results This section contains the Chemistry/Hematology Results that were resulted 30 days before or 30 daysafter the date of the Encounter. Date/Time Source Result Type Result - Unit Interpretation Reference Range Comment Jan 30, 2024 08:55 AM [facility] BASIC METABOLIC PANEL (non-fasting) Specimen Type: SERUM No comment entered. Ordering Provider: RUBI CROWE Report Released Date/Time: December 26, 2023 08:29 AM Reporting Lab: [facility] [address] [address] Performing Lab: [facility] [address] [address] UREA NITROGEN 9 mg/dL 7-25 GLUCOSE 109 mg/dL H 65-100 SODIUM 136 mmol/L 135-145 POTASSIUM 4.1 mmol/L 3.5-5.0 CHLORIDE 106 mmol/L 100-110 CO2 24 meq/L 20-30 CREATININE, Serum 1.01 mg/dL 0.50-1.40 eGFR(CKD-EPI 2020) 72 mL/min >60 Jan 30, 2024 08:55 AM [facility] LIPID PANEL, NON FASTING Specimen Type: SERUM No comment entered. Ordering Provider: RUBI CROWE Report Released Date/Time: December 26, 2023 08:29 AM Reporting Lab: [facility] [address] [address] Performing Lab: [facility] [address] [address] CHOLESTEROL 91 mg/dL TRIGLYCERIDE 65 mg/dL 0-150 LDL calculated 49 mg/dL 0-129 CHOL/HDL 3.1 HDL CHOLESTEROL 29 mg/dL L 40-60 Jan 30, 2024 08:55 AM [facility] CREATININE (eGFR 2020) Specimen Type: SERUM No comment entered. Ordering Provider: REGINA ALFARO Report Released Date/Time: Jan 28, 2024 02:54 PM Reporting Lab: [facility] [address] [address] Performing Lab: [facility] [address] [address] CREATININE, Serum 0.99 mg/dL 0.50-1.40 eGFR(CKD-EPI 2020) 74 mL/min >60 Vital Signs: All taken on the encounter date This section contains inpatient and outpatient Vital Signs collected on the date of the Encounter. Date/Time Temperature Pulse Blood Pressure Respiratory Rate SP02 Pain Height Weight Body Mass Index Source Feb 11, 2024 08:57 AM 135/67 [facility] Feb 11, 2024 08:33 AM 96.2 63 160/75 16 93 6 174 27 [facility] Social History: Smoking Status (Most current) and Tobacco Use (All prior to encounter date) This section includes the most current, and the historical, smoking and tobacco- related health factors from the [place] facility where the Encounter took place. Current Smoking Status This section includes the most current smoking, or tobacco-related health factor, from the [place] facility where the Encounter took place. Date/Time Current Smoking Status Comment Yessica huizar Jan 08, 2024 10:00 AM VA-TOBACCO FORMER USER [place] [facility] [place] [facility] Tobacco Use History This section includes a history of the smoking, or tobacco-related health factors, that were collected on or before the date of the Encounter. The data comes from the [place] facility where the Encounter took place. Date/Time Smoking Status/Tobac co Use Comment Facility Jan 08, 2024 10:00 AM VA-TOBACCO QUIT 5 TO < 15 YRS [place] [facility] [place] [facility] May 03, 2022 01:00 PM VA-TOBACCO FORMER USER [place] [facility] [place] [facility] May 03, 2022 01:00 PM VA-TOBACCO QUIT 15 YRS OR MORE [place] [facility] [place] [facility] May 17, 2021 09:00 AM VA-TOBACCO FORMER USER [place] [facility] [place] [facility] May 17, 2021 09:00 AM VA-TOBACCO QUIT 15 YRS OR MORE [place] [facility] [place] [facility] May 28, 2020 03:00 PM VA-TOBACCO FORMER USER [place] [facility] [place] [facility] May 28, 2020 03:00 PM VA-TOBACCO QUIT 5 TO < 15 YRS [place] [facility] [place] [facility] Oct 04, 2018 11:04 AM VA-TOBACCO FORMER USER [place] [facility] [place] [facility] Oct 04, 2018 11:04 AM VA-TOBACCO QUIT 1 TO < 5 YRS [place] [facility] [place] [facility] Jan 24, 2018 01:52 PM CURRENT SMOKER [place] [facility] [place] [facility] Jan 24, 2018 01:52 PM QUIT TOBACCO USE IN PAST YEAR quit ciagarettes 3 months ago [place] [facility] [place] [facility] Radiology Reports: +/- 30 days of [...] the Encounter. The data comes from all [place] treatment facilities. 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 Clinical History: Date Procedure CPT Status Case # 01/21/2024 ULTRASOUND NECK [id number] Verified 29 (THYROID,HEAD,SOFT TISSUE) Two subcutaneous lesions are seen in the region of palpable abnormalities measurin.5 x 2.0 x 0.7 cm hypoechoic and 1.4 x 1.2 x 0.7 cm. The findings are nonspecific and with CT neck with IV contrast should be considered for further evaluation. Report Status: Verified Date Reported: FEB 06, 2024 Date Verified: FEB 06, 2024 Point Of Care Technician E-Sig: Report: CT OF THE NECK WITHOUT IV CONTRAST: INDICATION: Follow-up of 01/21/2024 neck ultrasound for two subcutaneous lesions. TECHNIQUE: Volumetric CT acquisition through the neck, with axial, coronal and sagittal reformats, was performed at the local [place] facility. 1130 images were received by the [place] National Teleradiology Program (NTP) for interpretation. RADIATION [...] as detailed above. READING PHYSICIAN: Kumar Fonseca -[id number] 02/06/2024 11:16 EDT [facility] National Teleradiology Program [phone] (For Medical Practitioner Use Only) Attention Patients / Veterans: If you have questions or concerns about these test results, please contact your ordering provider or primary care team. 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 TECHNIQUE: Sonographic imaging of the neck was performed at the local [place] facility. 10 images were received by the [place] National Teleradiology Program (NTP) for interpretation. FINDINGS/ Impression: Two subcutaneous lesions are seen in the region of palpable abnormalities measurin.5 x 2.0 x 0.7 cm hypoechoic and 1.4 x 1.2 x 0.7 cm. The findings are nonspecific and with CT neck with IV contrast should be considered for further evaluation. READING PHYSICIAN: Manolo Koo M.D. -[id number] 01/24/2024 15:55 EDT [facility] National Teleradiology Program [phone] (For Medical Practitioner Use Only) Attention Patients / Veterans: If you have questions or concerns about these test results, please contact your ordering provider or primary care team. Primary Diagnostic Code: NO ALERT REQUIRED Primary Interpreting Staff: RADIOLOGY,OUTSIDE SERVICE, Staff Physician / RADIOLOGY,OUTSIDE SERVICE [facility] Encounter Notes: All associated encounter notes This section contains the clinical notes associated to the Encounter. Date/Time Encounter Note(s) Provider Source Feb 11, 2024 09:06 AM ADDENDUM: LOCAL TITLE: Addendum STANDARD TITLE: ADDENDUM DATE OF NOTE: FEB 11, 2024@09:06:35 ENTRY DATE: FEB 11, 2024@09:06:36 AUTHOR: RUBI CROWE EXP COSIGNER: URGENCY: STATUS: COMPLETED please fax to [facility], DR. Pyle /catalina/ RUBI CROWE D.O. PHYSICIAN Signed: 02/11/2024 09:07 Receipt Acknowledged By: 02/11/2024 14: /catalina/ MARIA FERNANDA OLVERA LPN License Practical Nurse --- Original Document --- 02/11/24 NOTE: cc: here for pre-op clearance for cataract surgery on 02/28/24 and 03/20/[address] Pyle, [facility]. Denies any recent illness, does have emphysema- does not use inhalers. recent CT chest shows nodules PMHx: Active problems - Computerized Problem List is the source for the followin. Multinodular goiter 2. History of carotid endarterectomy Right carotid endarderectomy 07/18/21 @[facility], following with Vascular 3. Cerebrovascular accident 4. Coronary atherosclerosis following with [facility] cardiology, h/o RBBB< stent in Left [...] hospitalization 12/2017- fall / fx left hip- [facility] eye laser - for glaucoma 14. Under care of multiple providers non va pcp- dr ring / DR SILVA - REHAB facility orthopedic - fracture hip 15. COPD - Chronic Obstructive Pulmonary Disease (SCT 69883689) d/ c smoking 8 months 16. HTN - Hypertension (SCT [id number]) 17. Spinal Stenosis of Lumbar Region ([facility] [id number]) 18. Solitary Nodule of Lung ([facility] [id number]) [place] CT 05/03/2012 19. Asbestos-induced pleural plaque labs: Collection DT Specimen Test Name Result Units Ref Range 01/30/2024 08:55 SERUM CREATININE, Serum 1.01 mg/dL 0.50 - 1.40 eGFR(CKD-EPI 2020 72 mL/min Ref: >=60 SODIUM 136 mmol/L 135 - 145 POTASSIUM 4.1 mmol/L 3.5 - 5.0 CHLORIDE 106 mmol/L 100 - 110 CO2 24 mEq/L 20 - 30 UREA NITROGEN 9 mg/dL 7 - 25 GLUCOSE 109 H mg/dL 65 - 100 CHOLESTEROL 91 mg/dL <7 - 199 TRIGLYCERIDE 65 mg/dL 0 - 150 LDL calculated 49 mg/dL 0 - 129 CHOL/HDL 3.1 HDL CHOLESTEROL 29 L mg/dL 40 - 60 01/30/2024 08:55 SERUM CREATININE, Serum 0.99 mg/dL 0.50 - 1.40 eGFR(CKD-EPI 2020 74 mL/min Ref: >=60 IMAGING IMPRESSION Date Procedure CPT Status Case # 01/31/2024 CT NECK SOFT TISSUE W/O CONT [id number] Verified 380 Subcutaneous lesion in the right-side [...] as detailed above. READING PHYSICIAN: Kumar Fonseca -[id number] vitals: B/P: 135/67 (02/11/2024 08:57) pulse: 63 (02/11/2024 08:33) resp: 16 (02/11/2024 08:33) temp: 96.2 F [35.7 C] (02/11/2024 08:33) Ht: 68 in [172.7 cm] (06/20/2023 09:55) Wgt: 174 lb [78.93 kg] (02/11/2024 08:33) BMI: BMI: 26.5 exam: in a wheelchair RRR S1 S2 rhonchi diffusely- mostly clears with cough good air flow throughout- no wheezing no LE edema A/P: Active problems - Computerized Problem List is the source for the followin. Cataract- bilateral. medically optimized for cataract surgery. Low risk for cardiac or pulmonary complications in the perioperative period. does have underlying COPD, encouraged him to use the inhalers he has at home (outside community PCP has prescribed). 2. History of carotid endarterectomy Right carotid endarderectomy 07/18/21 @[facility], following with Vascular 3. Cerebrovascular accident 4. Coronary atherosclerosis following with [facility] cardiology, h/o RBBB, stent in Left circumflex artery, near syncope. on b-shiloh and long acting nitrate and lisnopril 5. HTN- currently on lisinopril 10 mg and metoprolol 25 mg daily. BP has been elevated at home and initial BP here was elevated. OK to increase lisinopril to 20 mg daily. 6. COPD - Chronic Obstructive Pulmonary Disease (SCT 94333081)- does have some rhonchi whch clears with cough. encourgaed him to use his inhalers. recent CT chest does show some increase in nodules- continue to follow yearly. f/u in 6 months visit: MODERATE complexity visit where 30 minutes was spent in direct patient care, review of records and documentation /catalina/ RUBI CROWE D.O. PHYSICIAN Signed: 02/11/2024 09:06 RUBI CROWE [place] [facility] [place] [facility] Feb 11, 2024 08:43 AM PHYSICIAN NOTE: LOCAL TITLE: NOTE STANDARD TITLE: PHYSICIAN NOTE DATE OF NOTE: FEB 11, 2024@08:43 ENTRY DATE: FEB 11, 2024@08:43:22 AUTHOR: RUBI CROWE EXP COSIGNER: URGENCY: STATUS: COMPLETED NOTE Has ADDENDA cc: here for pre-op clearance for cataract surgery on 02/28/24 and 03/20/[address] Pyle, [facility]. Denies any recent illness, does have emphysema- does not use inhalers. recent CT chest shows nodules PMHx: Active problems - Computerized Problem List is the source for the followin. Multinodular goiter 2. History of carotid endarterectomy Right carotid endarderectomy 07/18/21 @[facility], following with Vascular 3. Cerebrovascular accident 4. Coronary atherosclerosis following with [facility] cardiology, 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, near syncope 5. Strain of infraspinatus muscle 6. Limitation of motion 04/09/19 - right shoulder pain ( muscle strain ) OT consult ordered 04/09/19 7. Decreased vitamin D VIT D - 18 MED: decline VIT D supplement 8. H/O: glaucoma 9. Immunization status complete Shingrex # 2 10. Adult screening status vit D - 18 11. Hyperlipidemia 12. Elderly fall 13. Patient requires hospitalization 12/2017- fall / fx left hip- [facility] eye laser - for glaucoma 14. Under care of multiple providers non va pcp- dr ring / DR SILVA - REHAB facility orthopedic - fracture hip 15. COPD - Chronic Obstructive Pulmonary Disease ([facility] [id number]) d/ c smoking 8 months 16. HTN - Hypertension ([facility] [id number]) 17. Spinal Stenosis of Lumbar Region ([facility] [id number]) 18. Solitary Nodule of Lung ([facility] [id number]) [place]'s home CT 05/03/2012 19. Asbestos-induced pleural plaque labs: Collection DT Specimen Test Name Result Units Ref Range 01/30/2024 08:55 SERUM CREATININE, Serum 1.01 mg/dL 0.50 - 1.40 eGFR(CKD-EPI 2020 72 mL/min Ref: >=60 SODIUM 136 mmol/L 135 - 145 POTASSIUM 4.1 mmol/L 3.5 - 5.0 CHLORIDE 106 mmol/L 100 - 110 CO2 24 mEq/L 20 - 30 UREA NITROGEN 9 mg/dL 7 - 25 GLUCOSE 109 H mg/dL 65 - 100 CHOLESTEROL 91 mg/dL <7 - 199 TRIGLYCERIDE 65 mg/dL 0 - 150 LDL calculated 49 mg/dL 0 - 129 CHOL/HDL 3.1 HDL CHOLESTEROL 29 L mg/dL 40 - 60 01/30/2024 08:55 SERUM CREATININE, Serum 0.99 mg/dL 0.50 - 1.40 eGFR(CKD-EPI 2020 74 mL/min Ref: >=60 IMAGING IMPRESSION Date Procedure CPT Status Case # 01/31/2024 CT NECK SOFT TISSUE W/O CONT [id number] Verified 380 Subcutaneous lesion in the right-side [...] as detailed above. READING PHYSICIAN: Kumar Fonseca -[id number] vitals: B/P: 135/67 (02/11/2024 08:57) pulse: 63 (02/11/2024 08:33) resp: 16 (02/11/2024 08:33) temp: 96.2 F [35.7 C] (02/11/2024 08:33) Ht: 68 in [172.7 cm] (06/20/2023 09:55) Wgt: 174 lb [78.93 kg] (02/11/2024 08:33) BMI: BMI: 26.5 exam: in a wheelchair RRR S1 S2 rhonchi diffusely- mostly clears with cough good air flow throughout- no wheezing no LE edema A/P: Active problems - Computerized Problem List is the source for the followin. Cataract- bilateral. medically optimized for cataract surgery. Low risk for cardiac or pulmonary complications in the perioperative period. does have underlying COPD, encouraged him to use the inhalers he has at home (outside community PCP has prescribed). 2. History of carotid endarterectomy Right carotid endarderectomy 07/18/21 @[facility], following with Vascular 3. Cerebrovascular accident 4. Coronary atherosclerosis following with [facility] cardiology, h/o RBBB, stent in Left circumflex artery, near syncope. on b-shiloh and long acting nitrate and lisnopril 5. HTN- currently on lisinopril 10 mg and metoprolol 25 mg daily. BP has been elevated at home and initial BP here was elevated. OK to increase lisinopril to 20 mg daily. 6. COPD - Chronic Obstructive Pulmonary Disease (SCT 49946673)- does have some rhonchi whch clears with cough. encourgaed him to use his inhalers. recent CT chest does show some increase in nodules- continue to follow yearly. f/u in 6 months visit: MODERATE complexity visit where 30 minutes was spent in direct patient care, review of records and documentation /catalina/ RUBI CROWE D.O. PHYSICIAN Signed: 02/11/2024 09:06 02/11/2024 ADDENDUM STATUS: COMPLETED please fax to [facility], DR. Pyle /rowena CROWE D.O. PHYSICIAN Signed: 02/11/2024 09:07 Receipt Acknowledged By: * AWAITING SIGNATURE * MARIA FERNANDA OLVERA [facility] Feb 11, 2024 08:36 AM PREVENTIVE MEDICIN E NURSING NOTE: LOCAL TITLE: CLINICAL REMINDERS/NURSING STANDARD TITLE: PREVENTIVE MEDICINE NURSING NOTE DATE OF NOTE: FEB 11, 2024@08:36 ENTRY DATE: FEB 11, 2024@08:36:48 AUTHOR: MARIA FERNANDA OLVERA EXP COSIGNER: URGENCY: STATUS: COMPLETED Advance Directive Screen AD: Patient has an up-to-date Advance Directive at an outside, non-va facility and was asked to forward a copy to his/her clinician. /rowena OLVERA LPN License Practical Nurse Signed: 02/11/2024 08:37 MARIA FERNANDA OLVERA [facility]
--- OUTSIDE RECORDS SUMMARY | 2024-08-07 11:26 | XMS_ITS | Encounter Summary ---
Author Name [facility] [place] Organization [facility] [place] Address [address] [place] [id number] Care Team Providers Care Glove Turner And Former Name Role Phone RUBI CROWE Primary Care [...] O MEDEX BRONZ E Jun 06, 2007 [id number] NEVIN WILLIAMSON PATIENT ANTHEM BCBS OF [place] MEDICARE SUPPLEMEN [place] PSUED O MEDEX BRONZ E Jun 06, 2007 [id number] NEVIN WILLIAMSON PATIENT ANTHEM BCBS OF [place] (BLUECARD) MEDICARE SUPPLEMEN [place] PSUED O MEDEX BRONZ E Jun 06, 2007 [id number] [phone] NEVIN WILLIAMSON PATIENT [place] MED[place] SUPPLEMEN [place] MEDEX BRONZ E Jun 06, 2007 [id number] [phone] NEVIN WILLIAMSON [place] MEDEX BRONZ E Jun 06, 2007 [id number] [phone] NEVIN WILLIAMSON PATIENT MEDICARE (WNR) MEDICARE (M) PART B Jun 06, 2007 PART B [id number] NEVIN WILLIAMSON PATIENT MEDICARE (WNR) MEDICARE (M) PART B Jun 06, 2007 PART B [id number] NEVIN WILLIAMSON PATIENT MEDICARE (WNR) MEDICARE (M) PART A Jan 04, 2003 PART A [id number] NEVIN WILLIAMSON PATIENT MEDICARE (WNR) MEDICARE (M) PART A Jan 04, 2003 PART A [id number] NEVIN WILLIAMSON PATIENT MEDICARE (WNR) MEDICARE (M) PART B Jan 04, 2003 PART B [id number] NEVIN WILLIAMSON PATIENT MEDICARE (WNR) MEDICARE (M) PART A Jan 04, 2003 PART A [id number] NEVIN WILLIAMSON PATIENT Selected Encounter This section includes the information on record at [place] for the Encounter. Date/Time Encounter Type Encounter Description Reason Pro vider Source Mar 10, 2024 08:58 AM Outpatient Encounter TELEPHONE TRIAGE IHE Encounter Template Text not used by [place] Plan of Treatment: Future Appointments (+ 6 months) and Future Tests (+/- 45 days) The Plan of Treatment section includes future care activities for the patient from all [place] treatmentfacilities. This section includes future appointments and future orders which are active, pending or scheduled. Future Appointments This section includes appointments that were scheduled to occur 6 months from the date of the Encounter, up to a maximum of 20 appointments. The data comes from all [place] treatment facilities. Appointment Date/Time Appointment Type Appointme nt Facility Name Apr 17, 2024 10:45 AM AMBULATORY - MEDICINE [place] [facility] [place] [facility] Apr 23, 2024 11:00 AM AMBULATORY - MEDICINE [place] [facility] [place] [facility] Apr 24, 2024 01:45 PM AMBULATORY - MEDICINE [place] [facility] [place] [facility] May 13, 2024 11:00 AM AMBULATORY - MEDICINE [place] [facility] [place] [facility] Jun 23, 2024 10:30 AM AMBULATORY - NONE [facility] [place] [facility] Jun 23, 2024 11:30 AM AMBULATORY - MEDICINE [facility] [place] [facility] Jun 30, 2024 10:00 AM AMBULATORY - MEDICINE [place] [facility] [place] [facility] Aug 04, 2024 09:30 AM AMBULATORY - MEDICINE [facility] [place] [facility] Aug 12, 2024 11:00 AM AMBULATORY - MEDICINE [place] [facility] [place] [facility] Aug 14, 2024 09:00 AM AMBULATORY - MEDICINE [place] [facility] [place] [facility] Social History: Smoking Status (Most current) and Tobacco Use (All prior to encounter date) This section includes the most current, and the historical, smoking and tobacco- related health factors from the [place] facility where the Encounter took place. Current Smoking Status This section includes the most current smoking, or tobacco-related health factor, from the [place] facility where the Encounter took place. Date/Time Current Smoking Status Comment [facility] Jan 08, 2024 10:00 AM VA-TOBACCO [facility]ER [place] [facility] Tobacco Use History This section includes a history of the smoking, or tobacco-related health factors, that were collected on or before the date of the Encounter. The data comes from the [place] facility where the Encounter took place. Date/Time Smoking Status/Tobac co Use Comment Facility Jan 08, 2024 10:00 AM VA-TOBACCO QUIT 5 TO < 15 YRS [facility] [place] [facility] May 03, 2022 01:00 PM VA-TOBACCO FORMER USER [facility] [place] [facility] May 03, 2022 01:00 PM VA-TOBACCO QUIT 15 YRS OR MORE [facility] [place] [facility] May 17, 2021 09:00 AM VA-TOBACCO FORMER USER [facility] [place] [facility] May 17, 2021 09:00 AM VA-TOBACCO QUIT 15 YRS OR MORE [facility] [place] [facility] May 28, 2020 03:00 PM VA-TOBACCO FORMER USER [facility] [place] [facility] May 28, 2020 03:00 PM VA-TOBACCO QUIT 5 TO < 15 YRS [facility] [place] [facility] Oct 04, 2018 11:04 AM [facility]CO [facility] Oct 04, 2018 11:04 AM VA-TOBACCO QUIT 1 TO < 5 YRS [facility] Jan 24, 2018 01:52 PM CURRENT SMOKER [facility] Jan 24, 2018 01:52 PM QUIT TOBACCO USE IN PAST YEAR quit ciagarettes 3 months ago [facility] Encounter Notes: All associated encounter notes This section contains the clinical notes associated to the Encounter. Date/Time Encounter Note(s) Provider Source Mar 10, 2024 08:58 AM RN PROGRESS NOTE: LOCAL TITLE: CCC: CLINICAL TRIAGE STANDARD TITLE: RN PROGRESS NOTE DATE OF NOTE: MAR 10, 2024@08:58:24 ENTRY DATE: MAR 10, 2024@08:58:25 AUTHOR: ROBEL CAROLINA COSIGNER: URGENCY: STATUS: COMPLETED Patient Demographics Patient Name: NEVIN WILLIAMSON Patient Primary Address: [address] [place] [address] Patient Primary Phone: [phone] Patient : 1940 Patient Age: 84 Current Location: [address] [place] [address] Call Back Number: Caller/Recipient Relation to Patient: Self Emergency Contact: tamiko VILLA Triage Summary Conducted triage/discussed symptoms Pain Score: 10 (Severe Pain) Utilized the Triage Tool: Yes Chief Complaint: Lower Back Pain System WHEN: Now, 911 Nurse's Recommendation / WHEN: 911 System WHERE: Emergency department Nurse's Recommendation / WHERE: ED Other Patient Disposition Patient WHERE: ED Other Patient WHEN: Now Nursing Plan and Disposition Referred patient to higher level of care Instructed to go to Emergency Room (ER) Advised of Financial Disclaimer: Patient advised that recommendation for care provided during the call does not constitute an approval or authorization for payment by the [place] or its staff. Patient advised to report a community ED visit to the [facility] Office of Community Care at within 72 hours. Other course(s) of action Generated msg to PACT/Provider Provided guidance for worsening symptoms: *Caller/Patient* advised to call facilities [place] Clinical Contact Center or seek immediate medical attention for new or worsening symptoms Nurse Summary Nurse Summary: Janeth reports severe lower back pain x 4 days approx. along with pertinent positive + negative s/sx detailed at the end of this RN's assessment. Janeth also reports the pain radiates to his L gluteal fold, L leg, and to his ABD. Janeth agrees to ED now recommendation. Janeth declines contacting an ambulance despite warnings that delaying care by not contacting an ambulance could result in worsening of condition or even . Janeth states No, he will have his drive him now. Janeth requests a f/u call back from PACT. Janeth also requests the ED notification # to be provided as he's unable to write it down now. Janeth has no additional questions and/or requests at this time. Alerting PACT Team for review and follow up. - Clinical Contact Center Codes Clinic/Location: V1 C[facility] PHONE CCC RN Decision Support System Output: Triage Complete Triage Date: 03/10/2024, 08:54 AM Triage Note: Decision Support Tool Used: [facility] Phone Triage 10 Mar 2024 12:51:07 +0000 [facility] Demographics 84 y/o Male Results CC: Lower Back Pain Software suggested: Now, 911 Software suggested follow-up location: Emergency department Values and Measures Duration of CC: 4 Days Alerts 1) This patient is at high risk for admission. Positive Responses HPI: back pain, lower back HPI: back pain, radiation to abdomen HPI: back pain, severe Negative Responses Denies: HPI: back injury, recent Denies: HPI: back pain, duration longer than 1 month Denies: HPI: lightheadedness, orthostatic Denies: HPI: weakness, unable to stand Denies: HPI: weakness, with diaphoresis Denies: PMH: abdominal aortic aneurysm Education Log Based on your responses, you should be treated in the emergency department. Take action: You need to see a provider now because your condition could worsen. Consider calling an ambulance. /catalina/ ROBEL CAROLINA RN REGISTERED NURSE Signed: 03/10/2024 08:58 Receipt Acknowledged By: 03/10/2024 10:49 /es/ MARIA FERNANDA OLVERA LPN License Practical Nurse 03/10/2024 09:57 /es/ JERRY MCCARTNEY RN REGISTERED NURSE [facility]EL CAROLINA [facility]
--- OUTSIDE RECORDS SUMMARY | 2024-08-07 11:26 | XMS_ITS | Encounter Summary ---
Author Name [facility] [place] [facility] [place] Address [address] [place] [address] Care Team Providers Care Filter Screen Cleaner Name Role Phone RUBI CROWE Primary Care [...] O MEDEX BRONZ E Jun 06, 2009 [id number] [phone] NEVIN WILLIAMSON PATIENT ANTHEM BCBS OF [place] MEDICARE SUPPLEMEN [place] PSUED O MEDEX BRONZ E Jun 06, 2007 [id number] [phone] NEVIN WILLIAMSON PATIENT ANTHEM BCBS OF CT (BLUECARD) MEDICARE SUPPLEMEN [place] PSUED O MEDEX BRONZ E Jun 06, 2007 [id number] NEVIN WILLIAMSON PATIENT [place] SUPPLEMEN [place] MEDEX BRONZ E Jun 06, 2007 [id number] [phone] NEVIN WILLIAMSON PATIENT [place] MED[place] SUPPLEMEN [place] MEDEX BRONZ E Jun 06, 2007 [id number] NEVIN WILLIAMSON PATIENT MEDICARE (WNR) MEDICARE (M) PART B Jun 06, 2007 PART B [id number] NEVIN WILLIAMSON PATIENT MEDICARE (WNR) MEDICARE (M) PART B Jun 06, 2007 PART B [id number] NEVIN WILLIAMSON PATIENT MEDICARE (WNR) MEDICARE (M) PART A Jan 04, 2003 PART A [id number] NEVIN WILLIAMSON PATIENT MEDICARE (WNR) MEDICARE (M) PART A Jan 04, 2003 PART A [id number] [phone] NEVIN WILLIAMSON PATIENT MEDICARE (WNR) MEDICARE (M) PART B Jan 04, 2003 PART B [id number] NEVIN WILLIAMSON PATIENT MEDICARE (WNR) MEDICARE (M) PART A Jan 04, 2003 PART A [id number] [phone] NEVIN WILLIAMSON PATIENT Selected Encounter This section includes the information on record at [place] for the Encounter. Date/Time Encounter Type Encounter Description Reason Provider Source Mar 04, 2024 10:30 AM OFFICE O/P EST SF 10 MIN PODIATRY ICD-10-CM L60.3 Nail dystrophy MEJIA GARCIA [facility] Encounter Template Text not used by [place] Assessments - Encounter Diagnoses This section includes the primary and secondary diagnoses documented for the Encounter. Date/Time Primary/Secondary Diagnosis Diagnosis Name Provider Source Mar 04, 2024 04:06 PM PRIMARY Nail dystrophy [facility] [place] [facility] Plan of Treatment: Future Appointments (+ 6 months) and Future Tests (+/- 45 days) The Plan of Treatment section includes future care activities for the patient from all [place] treatmentfacilities. This section includes future appointments and future orders which are active, pending or scheduled. Future Appointments This section includes appointments that were scheduled to occur 6 months from the date of the Encounter, up to a maximum of 20 appointments. The data comes from all [place] treatment facilities. Appointment Date/Time Appointment Type Appointme nt Facility Name Apr 17, 2024 10:45 AM AMBULATORY - MEDICINE [facility] [place] [facility] Apr 23, 2024 11:00 AM AMBULATORY - MEDICINE [facility] [place] [facility] Apr 24, 2024 01:45 PM AMBULATORY - MEDICINE [facility] [place] [facility] May 13, 2024 11:00 AM AMBULATORY - MEDICINE [facility] [place] [facility] Jun 23, 2024 10:30 AM AMBULATORY - NONE [facility] [place] [facility] Jun 23, 2024 11:30 AM AMBULATORY - MEDICINE [facility] [place] [facility] Jun 30, 2024 10:00 AM AMBULATORY - MEDICINE [facility] [place] [facility] Aug 04, 2024 09:30 AM AMBULATORY - MEDICINE [facility] [place] [facility] Aug 12, 2024 11:00 AM AMBULATORY - MEDICINE [place] [facility] [place] [facility] Aug 14, 2024 09:00 AM AMBULATORY - MEDICINE [place] [facility] [place] [facility] Social History: Smoking Status (Most current) and Tobacco Use (All prior to encounter date) This section includes the most current, and the historical, smoking and tobacco- related health factors from the [place] facility where the Encounter took place. Current Smoking Status This section includes the most current smoking, or tobacco-related health factor, from the [place] facility where the Encounter took place. Date/Time Current Smoking Status Comment [facility] Jan 08, 2024 10:00 AM VA-TOBACCO FORMER USER [place] [facility] Tobacco Use History This section includes a history of the smoking, or tobacco-related health factors, that were collected on or before the date of the Encounter. The data comes from the [place] facility where the Encounter took place. Date/Time Smoking Status/Tobac co Use Comment Facility Jan 08, 2024 10:00 AM VA-TOBACCO QUIT 5 TO < 15 YRS [facility] [place] [facility] May 03, 2022 01:00 PM VA-TOBACCO FORMER USER [facility] [place] [facility] May 03, 2022 01:00 PM VA-TOBACCO QUIT 15 YRS OR MORE [facility] [place] [facility] May 17, 2021 09:00 AM VA-TOBACCO FORMER USER [facility] [place] [facility] May 17, 2021 09:00 AM VA-TOBACCO QUIT 15 YRS OR MORE [place] [facility] [place] [facility] May 28, 2020 03:00 PM VA-TOBACCO FORMER USER [facility] [place] [facility] May 28, 2020 03:00 PM VA-TOBACCO QUIT 5 TO < 15 YRS [facility] [place] [facility] Oct 04, 2018 11:04 AM VA-TOBACCO FORMER USER [place] [facility] [place] [facility] Oct 04, 2018 11:04 AM VA-TOBACCO QUIT 1 TO < 5 YRS [facility] [place] [facility] Jan 24, 2018 01:52 PM CURRENT SMOKER [place] [facility] [place] [facility] Jan 24, 2018 01:52 PM QUIT TOBACCO USE IN PAST YEAR quit ciagarettes 3 months ago [place] [facility] [place] [facility] Encounter Notes: All associated encounter notes This section contains the clinical notes associated to the Encounter. Date/Time Encounter Note(s) Provider Source Mar 04, 2024 10:41 AM PODIATRY NOTE: LOCAL TITLE: PODIATRY NOTE STANDARD TITLE: PODIATRY NOTE DATE OF NOTE: MAR 04, 2024@10:41 ENTRY DATE: MAR 04, 2024@10:41:14 AUTHOR: MEJIA GARCIA EXP COSIGNER: URGENCY: STATUS: COMPLETED Podiatry [facility] Follow up Provider: Mejia Garcia Date: March 04, 2024 NEVIN WILLIAMSON [address], [place] [address] [birth year] 83 MALE [phone] PATIENT PHONE - Primary Care: SUMAN PATHAK Visit Concern:83 y.o. male for nail care. No prvious hx of amputation risk. No comnplaints otherwise today. 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 04/09/2019 PETROFF,GUSTAVOHARJEETPepito Limitation of motion M25.511 04/09/2019 PETROFF,MARIO ALBERTO Decreased vitamin D E55.9 04/09/2019 PETROFF,GUSTAVONAVID H/O: glaucoma H40.89 10/04/2018 PETROFF,GUSTAVOHARJEETPepito Immunization status R69. 10/04/2018 PETROFF,GUSTAVOHARJEETE Adult screening status R69. 10/04/2018 PETROFF,GUSTAVONAVID Hyperlipidemia E78.5 02/01/2018 PETROFF,GUSTAVOHARJEETE Elderly fall R26.9 02/01/2018 PETROFF,MARIO ALBERTO Patient requires hospitalization R6 10/04/2018 PETROFF,MARIO ALBERTO Under care of multiple providers R6 04/02/2018 PETROFF,MARIO ALBERTO COPD - Chronic Obstructive Pulmonar 10/04/2018 LILIANA POTTS HTN - Hypertension ([facility] [id number]) I 12/13/2017 LILIANA POTTS Spinal Stenosis of Lumbar Region (S 12/13/2017 LILIANA POTTS Solitary Nodule of Lung (SCT [id number] 12/13/2017 LILIANA POTTS Asbestos-induced pleural plaque R69 12/13/2017 LILIANA POTTS Active mediciation: Active Outpatient Medications (including Supplies): Active Outpatient Medications Status 1) ATORVASTATIN CALCIUM 80MG TAB TAKE ONE TABLET BY ACTIVE MOUTH ONCE DAILY FOR CHOLESTEROL 2) FLUTICASONE PROP 50MCG 120D NASAL INHL INSTILL 1 ACTIVE SPRAY INTO EACH NOSTRIL AT BEDTIME FOR NASAL IRRITATION/INFLAMMATION 3) ISOSORBIDE MONONITRATE 30MG SA TAB TAKE ONE TABLET BY ACTIVE MOUTH ONCE DAILY TO PREVENT ANGINA 4) LATANOPROST 0.005% OPH SOLN INSTILL 1 DROP INTO EACH ACTIVE EYE AT BEDTIME TO REDUCE PRESSURE IN THE EYE 5) LEVETIRACETAM 250MG TAB TAKE ONE TABLET BY MOUTH AT ACTIVE BEDTIME 6) LISINOPRIL 5MG TAB TAKE ONE TABLET BY MOUTH ONCE ACTIVE DAILY FOR HIGH BLOOD PRESSURE TO CONTROL BLOOD PRESSURE 7) METOPROLOL SUCCINATE 25MG SA TAB TAKE ONE TABLET BY ACTIVE MOUTH ONCE DAILY FOR BLOOD PRESSURE/HEART 8) TAMSULOSIN HCL 0.4MG CAP TAKE ONE CAPSULE BY MOUTH AT ACTIVE BEDTIME FOR ENLARGED PROSTATE Active Non-VA Medications Status 1) Non-VA ASPIRIN 81MG EC TAB 81MG BY MOUTH ONCE DAILY ACTIVE 9 Total Medications Allergies: Data on this list may not be complete. Please check JLV. PE: Trace palpable DP PT pulses 1+ nonpitting edema bilateral ankles and feet And atrophic skin no pedal ankle or leg hair present No open wounds or sores No significant deformity Webs clear No calluses Heels intact Nails thin brittle and minimally elongated No clinical sign of infection or ingrowth Impression: -Age-related trophic changes -Nail dystrophy Plan: -Trimmed nails left and right 1 through 5 without incident using mechanical and electric standing. All disposables removed from field post procedure all RME processed according to [facility] policy -Antiseptic applied to all toes -Discharged -Follow-up with nursing nail clinic 4 to 5 months Return sooner if any fever chills nausea, vomiting increased redness, swelling, drianage, pain, or flu like symptoms, or go to nearest emergency room / urgent care for evaluation. -all sharpes cleared, processed and or disposed of according to SOP/MCP. -As part of the service the pertinent primary care, specialty care and urgent care notes have been reviewed as well as the patient's medication list, problem list, and current imaging as well as past imaging, laboratory data and other pertinent contributory consults. -All new and discontinued medications have been discussed in detail with the patient and or caregiver, including indications for additions and deletions, as well as possible side effects, interactions as foreseen, and risk of not taking as prescribed If applicable, the patient was advised clearly on application of wound care agents how to apply and when to apply. The patient was able to recitethis information back to the prescriber with good understanding and agreed to the plan of care as indicated above. -Plan of care discuss with the patient and or caregiver, including medical decision making which includes discussion of abnormal lab results, imaging and other diagnostic modalities as well as results of the physical exam and it systems analyst consultant opinions and recommendations as sought. Alternatives to surgery or outlined care above as appropriate have also been discussed. -The patient/ caregiver has displayed good understanding of above and with no further questions at this time. Patient is aware of next appointment and agrees to follow-up interval. Patient agrees to seek sooner follow up if any irregular events occur in between such as cardinal signs of infection, increased pain or deformity. -The on this visit was given information [facility] service and encouraged to enroll if not already having done so. /catalina/ MEJIA GARCIA DPM PODIATRY ATTENDING Signed: 03/04/2024 16:06 MEJIA GARCIA [facility]
--- OUTSIDE RECORDS SUMMARY | 2024-08-07 11:26 | XMS_ITS | Encounter Summary ---
Author Name [facility] [place] [facility] [place] [facility] [place] Address [address] [place] [id number] Care Team Providers Care Emergency Service Restorer Name Role Phone RUBI CROWE Primary Care [...] O MEDEX BRONZ E Jun 06, 2007 [id number] [phone] NEVIN WILLIAMSON PATIENT ANTHEM BCBS OF [place] MEDICARE SUPPLEMEN [place] PSUED O MEDEX BRONZ E Jun 06, 2007 [id number] [phone] NEVIN WILLIAMSON PATIENT ANTHEM BCBS OF CT (BLUECARD) MEDICARE SUPPLEMEN [place] PSUED O MEDEX BRONZ E Jun 06, 2007 [id number] [phone] NEVIN WILLIAMSON PATIENT [place] SUPPLE[place] MEDEX BRONZ E Jun 06, 2007 [id number] NEVIN WILLIAMSON [place] MEDEX BRONZ E Jun 06, 2007 [id number] NEVIN WILLIAMSON PATIENT MEDICARE (WNR) MEDICARE (M) PART B Jun 06, 2007 PART B [id number] NEVIN WILLIAMSON PATIENT MEDICARE (WNR) MEDICARE (M) PART B Jun 06, 2007 PART B [id number] [phone] NEVIN WILLIAMSON PATIENT MEDICARE (WNR) MEDICARE (M) PART A Jan 04, 2003 PART A [id number] NEVIN WILLIAMSON PATIENT MEDICARE (WNR) MEDICARE (M) PART A Jan 04, 2003 PART A [id number] [phone] NEVIN WILLIAMSON PATIENT MEDICARE (WNR) MEDICARE (M) PART B Jan 04, 2003 PART B [id number] NEVIN WILLIAMSON PATIENT MEDICARE (WNR) MEDICARE (M) PART A Jan 04, 2003 PART A [id number] NEVIN WILLIAMSON PATIENT Selected Encounter This section includes the information on record at [place] for the Encounter. Date/Time Encounter Type Encounter Description Reason Provider Source Oct 04, 2023 01:00 PM CMPTR OPHTH IMG OPTIC NERVE OPTOMETRY ICD-10-CM H40.1131 Primary open-angle glaucoma, bilateral, mild stage [place] [facility] Encounter Template Text not used by [place] Assessments - Encounter Diagnoses This section includes the primary and secondary diagnoses documented for the Encounter. Date/Time Primary/Secondary Diagnosis Diagnosis Name Provider Source Oct 04, 2023 02:35 PM PRIMARY Primary open-angle glaucoma, bilateral, mild stage [place] [facility] [place] [facility] Plan of Treatment: Future Appointments (+ 6 months) and Future Tests (+/- 45 days) The Plan of Treatment section includes future care activities for the patient from all [place] treatmentfacilities. This section includes future appointments and future orders which are active, pending or scheduled. Future Appointments This section includes appointments that were scheduled to occur 6 months from the date of the Encounter, up to a maximum of 20 appointments. The data comes from all [place] treatment facilities. Appointment Date/Time Appointment Type Appointme nt Facility Name Oct 10, 2023 06:00 AM [facility] [place] [facility] Oct 24, 2023 08:00 AM AM[facility]UL[facility] [place] [facility] Oct 29, 2023 08:00 AM AM[facility]ULAT[facility] [place] [facility] Dec 04, 2023 10:00 AM AM[facility]ULATORY [facility] [place] [facility] December 11, 2023 10:00 AM AM[facility]UL[facility] [place] [facility] December 19, 2023 10:15 AM AM[facility]UL[facility]ORY [facility]IC[facility] [place] [facility] December 19, 2023 11:00 AM AM[facility] [place] [facility] January 01, 2024 10:40 AM AM[facility]UL[facility]ORY [facility]ICINE [facility] [place] [facility] Jan 08, 2024 10:00 AM AM[facility]UL[facility]ORY [facility]ICINE [facility] [place] [facility] Jan 08, 2024 10:30 AM AM[facility]ICINE [facility] [place] [facility] Jan 21, 2024 10:30 AM AMBULATORY - NONE [facility] [place] [facility] Jan 31, 2024 02:15 PM AMBULATORY - NONE [facility] [place] [facility] Feb 11, 2024 08:30 AM AM[facility]UL[facility] [place] [facility] Mar 04, 2024 10:30 AM AM[facility]ULATORY [facility]ICINE [facility] [place] [facility] Social History: Smoking Status (Most current) and Tobacco Use (All prior to encounter date) This section includes the most current, and the historical, smoking and tobacco- related health factors from the [place] facility where the Encounter took place. Current Smoking Status This section includes the most current smoking, or tobacco-related health factor, from the [place] facility where the Encounter took place. Date/Time Current Smoking Status Comment Facil ity May 03, 2022 01:00 PM VA-TOBACCO FORMER USER [facility] [place] [facility] Tobacco Use History This section includes a history of the smoking, or tobacco-related health factors, that were collected on or before the date of the Encounter. The data comes from the [place] facility where the Encounter took place. Date/Time Smoking Status/Tobac co Use Comment Facility May 03, 2022 01:00 PM VA-TOBACCO QUIT 15 YRS OR MORE [place] [facility] [place] [facility] May 17, 2021 09:00 AM VA-TOBACCO FORMER USER [facility] [place] [facility] May 17, 2021 09:00 AM VA-TOBACCO QUIT 15 YRS OR MORE [facility] [place] [facility] May 28, 2020 03:00 PM VA-TOBACCO FORMER USER [facility] [place] [facility] May 28, 2020 03:00 PM VA-TOBACCO QUIT 5 TO < 15 YRS [place] [facility] [place] [facility] Oct 04, 2018 11:04 AM VA-TOBACCO FORMER USER [facility] [place] [facility] Oct 04, 2018 11:04 AM VA-TOBACCO QUIT 1 TO < 5 YRS [place] [facility] [place] [facility] Jan 24, 2018 01:52 PM CURRENT SMOKER [place] [facility] [place] [facility] Jan 24, 2018 01:52 PM QUIT TOBACCO USE IN PAST YEAR quit ciagarettes 3 months ago [place] [facility] [place] [facility] Radiology Reports: +/- 30 days of [...] the Encounter. The data comes from all [place] treatment [facility]. Date/Time Radiology Report Provider Source Oct 04, 2023 01:[address] THORAX W/O CONT: CLAYNEVIN Penny [id number] [phone] M Exm Date: OCT 04, 2023@13:46 Req Phys: SUMAN PATHAK Loc: CWM/NO/PACT 1 (Req'g Loc) Img Loc: NHM/CT Service: Unknown (Case [id number] COMPLETE) CT THORAX W/O CONT (CT Detailed) CPT:26946 Reason for Study: low dose CT for lung cancer screening Clinical History: Last chest CT was done September 2022 and was stable Report Status: Verified Date Reported: OCT 04, 2023 Date Verified: OCT 04, 2023 Fur Matcher E-Sig:/ES/GUILLERMINA NUNES JR Report: Study: Noncontrast CT [...] Primary Interpreting Staff: GUILLERMINA NUNES JR, Radiologist (Fur Matcher) /GUILLERMINA MOTA JR [place] [facility] Encounter Notes: All associated encounter notes This section contains the clinical notes associated to the Encounter. Date/Time Encounter Note(s) Provider Source Oct 04, 2023 02:32 PM OPTOMETRY CONSULT: LOCAL TITLE: CONSULT REPORT/OPTOMETRY OCT STANDARD TITLE: OPTOMETRY CONSULT DATE OF NOTE: OCT 04, 2023@14:32 ENTRY DATE: OCT 04, 2023@14:32:21 AUTHOR: JORGE [place] COSIGNER: URGENCY: STATUS: COMPLETED Review optic nerve OCT of patient with bilateral mild stage open-angle glaucoma treated with latanoprost at bedtime each eye. Optic nerve OCT right eye: Average retinal nerve fiber layer thickness is 74 ??m with average cup-to-disc ratio of 0.55 and vertical cup-to-disc ratio of 0.60. Disc area is slightly larger than average measuring 2.05 mm clear. There is evidence of nerve fiber layer thinning superior quadrant with remaining quadrants within normal limits. Optic nerve OCT left eye: Average retinal nerve fiber layer thickness is 72 ??m with average cup-to-disc ratio of 0.64 and vertical cup-to-disc ratio 0.60. Disc area is slightly larger than right eye measuring 2.17 mm??. There is no evidence of nerve fiber layer loss or defect in any quadrant left eye. Stable optic nerve OCT each eye without evidence of glaucomatous progression. Continue to monitor for bilateral mild stage open-angle glaucoma which treatment with latanoprost at bedtime each eye. Keep scheduled follow-up May 2024 for glaucoma check. Community care consult for bilateral cataract surgery entered as well. /catalina/ Jorge Oh OD CHIEF OF OPTOMETRY Signed: 10/04/2023 14:35 [facility]
--- OUTSIDE RECORDS SUMMARY | 2024-08-07 11:26 | XMS_ITS ---
Author Name [facility] [place] [facility] [place] Address [address] [place] [address] Care Team Providers Care Form Setter Steel Pan Forms Name Role Phone RUBI CROWE Primary Care [...] O MEDEX BRONZ E Jun 06, 2007 [id number] NEVIN WILLIAMSON PATIENT ANTHEM BCBS OF [place] MEDICARE SUPPLEMEN [place] PSUED O MEDEX BRONZ E Jun 06, 2007 [id number] NEVIN WILLIAMSON PATIENT ANTHEM BCBS OF [place] (BLUECARD) MEDICARE SUPPLEMEN [place] PSUED O MEDEX BRONZ E Jun 06, 2007 [id number] NEVIN WILLIAMSON PATIENT [place] MEDEX BRONZ E Jun 06, 2007 [id number] [phone] NEVIN WILLIAMSON [place] MEDEX BRONZ E Jun 06, 2007 [id number] NEVIN WILLIAMSON PATIENT MEDICARE (WNR) MEDICARE (M) PART B Jun 06, 2007 PART B [id number] NEVIN WILLIAMSON PATIENT MEDICARE (WNR) MEDICARE (M) PART B Jun 06, 2007 PART B [id number] NEVIN WILLIAMSON PATIENT MEDICARE (WNR) MEDICARE (M) PART A Jan 04, 2003 PART A [id number] [phone] NEVIN WILLIAMSON PATIENT MEDICARE (WNR) MEDICARE (M) PART A Jan 04, 2003 PART A [id number] NEVIN WILLIAMSON PATIENT MEDICARE (WNR) MEDICARE (M) PART A Jan 04, 2003 PART A [id number] NEVIN WILLIAMSON PATIENT MEDICARE (WNR) MEDICARE (M) PART B Jan 04, 2003 PART B [id number] NEVIN WILLIAMSON PATIENT Selected Encounter This section includes the information on record at [place] for the Encounter. Date/Time Encounter Type Encounter Description Reason Provider Source Oct 04, 2023 01:30 PM OFFICE O/P EST MOD 30 MIN OPTOMETRY ICD-10-CM H40.1131 Primary open-angle glaucoma, bilateral, mild stage [place] [facility] Encounter Template Text not used by [place] Assessments - Encounter Diagnoses This section includes the primary and secondary diagnoses documented for the Encounter. Date/Time Primary/Secondary Diagnosis Diagnosis Name Provider Source Oct 05, 2023 03:32 PM PRIMARY Primary open-angle glaucoma, bilateral, mild stage [place] [facility] [place] [facility] Oct 05, 2023 03:32 PM SECONDARY Combined forms of age-related cataract, bilateral [place] [facility] [place] [facility] Oct 05, 2023 03:32 PM SECONDARY Posterior subcapsular polar age-related cataract, left eye [place] [place] [facility] Plan of Treatment: Future Appointments (+ 6 months) and Future Tests (+/- 45 days) The Plan of Treatment section includes future care activities for the [facility] [place] [facility] This section includes future appointments and future orders which are active, pending or scheduled. Future Appointments This section includes appointments that were scheduled to occur 6 months from the date of the Encounter, up to a maximum of 20 appointments. The data comes from all [place] treatment facilities. Appointment Date/Time Appointment Type Appointme nt Facility Name Oct 10, 2023 06:00 AM [facility] [place] [facility] Oct 24, 2023 08:00 AM AM[facility] [place] [facility] Oct 29, 2023 08:00 AM AM[facility] [place] [facility] Dec 04, 2023 10:00 AM AM[facility]UL[facility]ORY [facility]IC[facility] [place] [facility] December 11, 2023 10:00 AM AM[facility]UL[facility]ORY [facility] [place] [facility] December 19, 2023 10:15 AM [facility]UL[facility]ORY [facility]INE [facility] [place] [facility] December 19, 2023 11:00 AM [facility] [place] [facility] January 01, 2024 10:40 AM AMBULATORY - [facility]ICINE [facility] [place] [facility] Jan 08, 2024 10:00 AM [facility] [place] [facility] Jan 08, 2024 10:30 AM [facility] [place] [facility] Jan 21, 2024 10:30 AM AMBULATORY - NONE [facility] [place] [facility] Jan 31, 2024 02:15 PM AMBULATORY - NONE [facility] [place] [facility] Feb 11, 2024 08:30 AM [facility] [place] [facility] Mar 04, 2024 10:30 AM AMBULATORY - [facility]ICINE [facility] [place] [facility] Social History: Smoking Status (Most current) and Tobacco Use (All prior to encounter date) This section includes the most current, and the historical, smoking and tobacco- related health factors from the VA facility where the Encounter took place. Current Smoking Status This section includes the most current smoking, or tobacco-related health factor, from the VA facility where the Encounter took place. Date/Time Current Smoking Status Comment Facil ity May 03, 2022 01:00 PM VA-TOBACCO FORMER USER [facility] Tobacco Use History This section includes a history of the smoking, or tobacco-related health factors, that were collected on or before the date of the Encounter. The data comes from the [place] facility where the Encounter took place. Date/Time Smoking Status/Tobac co Use Comment Facility May 03, 2022 01:00 PM VA-TOBACCO QUIT 15 YRS OR MORE [facility] [place] [facility] May 17, 2021 09:00 AM VA-TOBACCO FORMER USER [facility] [place] [facility] May 17, 2021 09:00 AM VA-TOBACCO QUIT 15 YRS OR MORE [facility] [place] [facility] May 28, 2020 03:00 PM VA-TOBACCO FORMER USER [facility] [place] [facility] May 28, 2020 03:00 PM VA-TOBACCO QUIT 5 TO < 15 YRS [facility] [place] [facility] Oct 04, 2018 11:04 AM VA-TOBACCO FORMER USER [facility] [place] [facility] Oct 04, 2018 11:04 AM VA-TOBACCO QUIT 1 TO < 5 YRS [facility] [place] [facility] Jan 24, 2018 01:52 PM CURRENT SMOKER [facility] [place] [facility] Jan 24, 2018 01:52 PM QUIT TOBACCO USE IN PAST YEAR quit ciagarettes 3 months ago [facility] Radiology Reports: +/- 30 days of [...] the Encounter. The data comes from all [place] treatment facilities. Date/Time Radiology Report Provider Source Oct 04, 2023 01:[address] THORAX W/O CONT: CLAYKAMLESHNEVIN L [id number] -[id number] M Exm Date: OCT 04, 2023@13:46 Req Phys: SUMAN PATHAK Pat Loc: [facility]/NO/PACT 1 (Req'g Loc) Img Loc: [place]/CT Service: Unknown (Case [id number] COMPLETE) CT THORAX W/O CONT (CT Detailed) CPT:30677 Reason for Study: low dose CT for lung cancer screening Clinical History: Last chest CT was done September 2022 and was stable Report Status: Verified Date Reported: OCT 04, 2023 Date Verified: OCT 04, 2023 [employer] E-Sig:/ES/GUILLERMINA NUNES JR Report: Study: Noncontrast CT [...] Primary Interpreting Staff: GUILLERMINA NUNES JR, Radiologist ([employer] Cutter Hand) /GUILLERMINA MOTA JR [facility] [place] [facility] Encounter Notes: All associated encounter notes This section contains the clinical notes associated to the Encounter. Date/Time Encounter Note(s) Provider Source Oct 04, 2023 08:07 AM OPTOMETRY NOTE: LOCAL TITLE: OPTOMETRY NOTE STANDARD TITLE: OPTOMETRY NOTE DATE OF NOTE: OCT 04, 2023@08:07 ENTRY DATE: OCT 04, 2023@08:07:06 AUTHOR: BETHANY VANG EXP COSIGNER: URGENCY: STATUS: COMPLETED OPTOMETRY NOTE Has ADDENDA Active problems - Computerized Problem List is the source for the followin. Multinodular goiter 2. History of carotid endarterectomy 3. Cerebrovascular accident 4. Coronary atherosclerosis 5. Strain of infraspinatus muscle 6. Limitation of motion 7. Decreased vitamin D 8. H/O: glaucoma 9. Immunization status 10. Adult screening status 11. Hyperlipidemia 12. Elderly fall 13. Patient requires hospitalization 14. Under care of multiple providers 15. COPD - Chronic Obstructive Pulmonary Disease ([facility] [id number]) 16. HTN - Hypertension ([facility] [id number]) 17. Spinal Stenosis of Lumbar Region ([facility] [id number]) 18. 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 This 83 year old MALE is seen today for [facility] Attending Provider Note: Date of Last Exam: November 2022 Location: [facility] Chief Complaint: Patient states its hard to explain, if I go outside in natural light im fine, but when im in the house with dry air and dust, my eyes get a little bit tired. I have not been going out at light, but when I do, the headlights from the cars almost kill me. Patient reports increased glare at night from car headlights in the last year or so. Vision otherwise is stable, no significant changes to report since last visit. Reports good compliance with glaucoma medication, using as directed. HISTORY AND REVIEW OF SYSTEMS: Facial and ocular rosacea Nuclear sclerotic and cortical cataracts Bilateral mild stage open-angle glaucoma (-) Pain: (-) CALDERA: (-) Diplopia: (-) Flashes: (-) Floaters: (+) Amaurosis Fugax/Tia's: mini-stroke few years ago (-) Eye Injury: (+) Eye Surgery: SLT OU 2017 Balin (-) TBI (-) FOHx: (-) Smoker/Length of Time: DIABEIC: No NEW ALLERGIES TO REPORT: No EYE MEDICATION(S): Latanoprost OU QHS CURRENT RX: Only wears NVOs, does not wear DVOs much, cant tell difference OD +2.75 -1.00 X90 OS +1.25 -1.00 X80 Last Distance Rx: OD +0.25 -1.00 X90 OS -1.25 -1.00 X80 DVA: ( )SC ( )CC (x)Phoropter w/ last DVO RX above OD: 20/40-2 OS: 20/40-2 NVA OU (SC): 20/25 MANIFEST REFRACTION(MRx): VERY INCONSISTENT OD: -0.50 -1.25 x095 20/30 OS: -1.75 -1.00 x080 20/40 ADD: +2.50 20/25 OU PUPILS: Appear ERRL(-)APD EOMS: Appear Full OU CVF: Appear FTFC OU INTRAOCULAR PRESSURE (IOP) METHOD: Goldmann Time: 1:17PM OD: 11 OS: 10 ANTERIOR CHAMBER (AC): Penlight or slit lamp (if available) exam appears unremarkable. Pupils are dilated. Dilation and driving precautions reviewed with patient and patient expresses understanding. Medication: 1% Tropicamide, 2.5% Phenylephrine OU Time: 1:21PM Visual Imaging Performed Today: Yes Additional Comments: /catalina/ Bethany Vang [facility] Signed: 10/04/2023 13:26 10/04/2023 ADDENDUM STATUS: COMPLETED Active problems - Computerized Problem List is the source for the followin. Multinodular goiter 2. History of carotid endarterectomy 3. Cerebrovascular accident 4. Coronary atherosclerosis 5. Strain of infraspinatus muscle 6. Limitation of motion 7. Decreased vitamin D 8. H/O: glaucoma 9. Immunization status 10. Adult screening status 11. Hyperlipidemia 12. Elderly fall 13. Patient requires hospitalization 14. Under care of multiple providers 15. COPD - Chronic Obstructive Pulmonary Disease ([facility] [id number]) 16. HTN - Hypertension ([facility] [id number]) 17. Spinal Stenosis of Lumbar Region ([facility] [id number]) 18. 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 This 83 year old MALE is seen today for follow-up care. Medical, eye, personal, and social history are all reviewed and contributory to today's visit for history of bilateral mild stage open-angle glaucoma status post SLT laser x1 each eye as well as bilateral cataracts. His last exam was here in November 07, 2020. Chief Complaint: Decreased distance limit vision indoors vision better outside in bright lights, difficulty with night driving due to glare and halo from headlights. ++++++++++++++++++++++++++++ ++++++++++++++++++++++++++++ ++++++++++++++++++++++++ ++++++++++++++++++++++++++++ ++++++++++++++++++++++++++++ ++++++++++++++++++++++++ Patient history, chief complaint, visual acuity, entrance testing, refraction and tonometry all performed by photo equipment technician and reviewed by attending provider. Dilation drops instilled by photo equipment technician after angle assessment with dilation warning given and verbal consent obtained. ++++++++++++++++++++++++++++ ++++++++++++++++++++++++++++ ++++++++++++++++++++++++ ++++++++++++++++++++++++++++ ++++++++++++++++++++++++++++ ++++++++++++++++++++++++ Tonometry: 10 OD 11 OS Time: 1:17 PM PreTreatment IOP: Unknown OD Unknown OS Pachymetry: Previously measured 549 ??m right eye 539 ??m left eye Anterior segment: Lids: Dermatochalasis with ptosis and lower lid bags each eye Conj: White and quiet each eye Cornea: Clear centrally without staining but debris in tear film with reduced TBUT each eye AC: 3+ quiet each eye Iris: Normal without transillumination defects each eye Lens: 2+ to 3 nuclear sclerosis with 1+ anterior cortical changes right eye 3 nuclear sclerosis with posterior subcapsular and anterior cortical changes left eye but no pseudoexfoliation Vit: Clear each eye Fundus exam: Dilated: xxx Non dilated: C/D: 0.60 right eye .65 left eye with good color, distinct disc margins and intact rim tissue no splinter hemorrhage or notching Macula: Normal each eye A/V: 1/2 each eye Vessels: Normal each eye Periphery: No obvious holes, tears, detachments each eye Impression: Bilateral mild stage open-angle glaucoma status post SLT laser x1 with stable intraocular pressure at target on latanoprost at bedtime each eye. Repeat optic nerve OCT and visual field testing shows no evidence of glaucomatous progression either eye. Increasing nuclear sclerotic and mixed cortical cataracts left greater than right eye compatible with visual decline and symptomatic with regard to decreased vision. Discussed risks and benefits of cataract surgery now as well as choice of community care providers. Elects to proceed with cataract evaluation and surgery with Dr. Sandhu in [place]. Plan: Patient education as noted above reviewed exam findings now as well as diagnostic testing. Discussed how visual symptoms related to progressing cataracts which cannot be improved with new glasses. Discussed the risks and benefits of cataract surgery as well as choice of community care providers. He elects to proceed with bilateral cataract evaluation and surgery with Dr. Sandhu in [place]. We will enter community care consult. Continue treatment with latanoprost at bedtime each eye for bilateral mild stage open-angle glaucoma. Return here May 2024 for pressure check with dilation. Return sooner if need be. Education: Glaucoma: Patient was educated regarding glaucoma/glaucoma suspect as well as the natural history of this diagnosis including prognosis. Stress importance of compliance and persistency with glaucoma medication when prescribed, timely follow up as well as the role of ancillary testing. Exclusion criteria for ancillary testing include significantly reduced acuity, mental status changes affecting the patient's ability to attend to the test or other physical limitations that would prohibit the patient's ability to participate in testing. Return to Clinic community care consult for bilateral cataract evaluation and surgery with Dr. Sandhu Return here in May 2024 for pressure check with dilation or sooner if need be. Ophthalmic medication reconciliation: Latanoprost at bedtime each eye Total time spent reviewing history, previous exam notes, examining patient, reviewing risks and benefits of cataract surgery as well as choice of providers and entering orders and consults: 36 minutes Answered patient's questions regarding cataract evaluation and surgery. Briefly discussed premium IOL in place with cataract surgery. /catalina/ Garrick Oh OD CHIEF OF OPTOMETRY Signed: 10/05/2023 15:32 BETHANY VANG [facility]
--- OUTSIDE RECORDS SUMMARY | 2024-08-07 11:27 | XMS_ITS | Encounter Summary ---
Author Name [facility] [place] [facility] [place] Address [address] [place] [id number] Care Team Providers Care Logistics System Engineer Name Role Phone RUBI CROWE Primary Care [...] O MEDEX BRONZ E Jun 06, 2007 [id number] [phone] NEVIN WILLIAMSON PATIENT ANTHEM BCBS OF [place] MEDICARE SUPPLEMEN SALVATORE PSUED O MEDEX BRONZ E Jun 06, 2007 [id number] NEVIN WILLIAMSON PATIENT ANTHEM BCBS OF [place] (BLUECARD) MEDICARE SUPPLEMEN [place] PSUED O MEDEX BRONZ E Jun 06, 2007 [id number] NEVIN WILLIAMSON PATIENT [place] MED[place] SUPPLEMEN [place] MEDEX BRONZ E Jun 06, 2007 [id number] NEVIN WILLIAMSON [place]IENT [place] MEDEX BRONZ E Jun 06, 2007 [id number] NEVIN WILLIAMSON PATIENT MEDICARE (WNR) MEDICARE (M) PART B Jun 06, 2007 PART B [id number] [phone] NEVIN WILLIAMSON PATIENT MEDICARE (WNR) MEDICARE (M) PART B Jun 06, 2007 PART B [id number] NEVIN WILLIAMSON PATIENT MEDICARE (WNR) MEDICARE (M) PART A Jan 04, 2003 PART A [id number] NEVIN WILLIAMSON PATIENT MEDICARE (WNR) MEDICARE (M) PART A Jan 04, 2003 PART A [id number] NEVIN WILLIAMSON PATIENT MEDICARE (WNR) MEDICARE (M) PART B Jan 04, 2003 PART B [id number] NEVIN WILLIAMSON PATIENT MEDICARE (WNR) MEDICARE (M) PART A Jan 04, 2003 PART A [id number] [phone] NEVIN WILLIAMSON PATIENT Selected Encounter This section includes the information on record at [place] for the Encounter. Date/Time Encounter Type Encounter Description Reason Pro vider Source Oct 05, 2023 11:06 AM Outpatient Encounter OPTOMETRY IHE Encounter Template Text not used by [...] 10, 2023 06:00 AM AM[place]ULATORY [place]IC[place] [facility] [facility] Oct 24, 2023 08:00 AM AM[place]ULATORY [place]ICINE [place] [facility] Oct 29, 2023 08:00 AM AM[place]ULATORY [place]ICINE [place] [facility] Dec 04, 2023 10:00 AM AMBULATORY [place] MEDICINE [place] [facility] [facility] December 11, 2023 10:00 AM AMBULATORY [place] MEDICINE [place] [facility] [place] [facility] December 19, 2023 10:15 AM AMBULATORY - MEDICINE [place] [facility] [facility] December 19, 2023 11:00 AM AMBULATORY - MEDICINE [place] [facility] [facility] January 01, 2024 10:40 AM AMBULATORY - MEDICINE [place] [facility] [facility] Jan 08, 2024 10:00 AM AMBULATORY - MEDICINE [place] [facility] [facility] Jan 08, 2024 10:30 AM AMBULATORY - MEDICINE [place] [facility] [facility] Jan 21, 2024 10:30 AM AMBULATORY - NONE [place] [facility] [place] [facility] Jan 31, 2024 02:15 PM AMBULATORY - NONE [place] [facility] [place] [facility] Feb 11, 2024 08:30 AM AMBULATORY - MEDICINE [place] [facility] [place] [facility] Mar 04, 2024 10:30 AM AMBULATORY - MEDICINE [place] [facility] [place] [facility] Social History: Smoking Status (Most current) [...] took place. Date/Time Current Smoking Status Comment [facility] May 03, 2022 01:00 PM VA-TOBACCO FORMER USER [place] [facility] [facility] Tobacco Use History This section includes a history of the smoking, or tobacco-related health factors, that were collected on or before the date of the Encounter. The data comes from the [place] facility where the Encounter took place. Date/Time Smoking Status/Tobac co Use Comment Facility May 03, 2022 01:00 PM VA-TOBACCO QUIT 15 YRS OR MORE [facility] [place] [facility] May 17, 2021 09:00 AM VA-TOBACCO FORMER USER [place] [facility] [place] [facility] May 17, 2021 09:00 AM VA-TOBACCO QUIT 15 YRS OR MORE [facility] [place] [facility] May 28, 2020 03:00 PM VA-TOBACCO FORMER USER [place] [facility] [place] [facility] May 28, 2020 03:00 PM VA-TOBACCO QUIT 5 TO < 15 YRS [place] [facility] [facility] Oct 04, 2018 11:04 AM VA-TOBACCO FORMER USER [place] [facility] [facility] Oct 04, 2018 11:04 AM VA-TOBACCO QUIT 1 TO < 5 YRS [place] [facility] [place] [facility] Jan 24, 2018 01:52 PM CURRENT SMOKER [place] [facility] [place] [facility] Jan 24, 2018 01:52 PM QUIT TOBACCO USE IN PAST YEAR quit ciagarettes 3 months ago [facility] Radiology Reports: +/- 30 days of [...] the Encounter. The data comes from all [place] treatment facilities. Date/Time Radiology Report Provider Source Oct 04, 2023 01:[address] THORAX W/O CONT: CLAYNEVIN Penny [id number] -[id number] M Exm Date: OCT 04, 2023@13:46 Req Phys: AHMED,MOHAMMYENIFER JAWED Pat Loc: CWM/NO/PACT 1 (Req'g Loc) Img Loc: [facility]/CT Service: Unknown (Case [id number] COMPLETE) CT THORAX W/O CONT (CT Detailed) CPT:15334 Reason for Study: low dose CT for lung cancer screening Clinical History: Last chest CT was done September 2022 and was stable Report Status: Verified Date Reported: OCT 04, 2023 Date Verified: OCT 04, 2023 Licensing Worker E-Sig:/ES/GUILLERMINA NUNES JR Report: Study: Noncontrast CT [...] Primary Interpreting Staff: GUILLERMINA NUNES JR, Radiologist (Licensing Worker) /GUILLERMINA MOTA JR [place] [facility] Encounter Notes: All associated encounter notes This section contains the clinical notes associated to the Encounter. Date/Time Encounter Note(s) Provider Source Oct 05, 2023 11:06 AM LETTERS: LOCAL TITLE: PATIENT LETTER (B) STANDARD TITLE: LETTERS DATE OF NOTE: OCT 05, 2023@11:06 ENTRY DATE: OCT 05, 2023@11:06:06 AUTHOR: YUE ALARCON EXP COSIGNER: URGENCY: STATUS: COMPLETED [facility] Toll Free Number , ext [phone] OCT 05, 2023 NEVIN WILLIAMSON [address] [place] [id number] Dear NEVIN WILLIAMSON Thank you for choosing the Department of [facility] [place] [facility] as your primary choice for health care. As a partner in your health care, we are contacting you in writing since we have been unsuccessful in our attempts to reach you to date. We want to assure you we are doing everything possible to schedule Veterans for their [place] medical care appointments. Our records indicate you are due for an appointment in optometry Thank you for choosing [facility] [place] [facility] as your primary choice for health care. As a partner in your health care, we are contacting you in writing since we have been unsuccessful in our attempts to reach you to date. We want to assure you we are doing everything possible to schedule Veterans for their [place] medical care appointments. If you would like to be seen, please contact [facility] at [phone] Ext. [phone] to schedule an appointment. Thank you for your service to our nation, and we look forward to hearing from you soon. Sincerely, [facility] [address] [place] [address] [place] [address] ext. [phone] [facility] [address] [place] [address] [place] [address] [phone] [facility] [address] [facility] [address] [place] [address] [place] [address] ext. [phone] [facility] [address] [place] [address] ext. [phone] YUE ALARCON [place] [facility]
--- OUTSIDE RECORDS SUMMARY | 2024-08-07 11:27 | XMS_ITS | Encounter Summary ---
Author Name [facility] [place] [facility] [place] Address [address] [place] [address] Care Team Providers Care Waste Removalist Name Role Phone RUBI CROWE Primary Care [...] O MEDEX BRONZ E [birth year], 2007 [id number] [phone] NEVIN WILLIAMSON PATIENT ANTHEM BCBS OF CT MEDICARE SUPPLEMEN [place] PSUED O MEDEX BRONZ E Jun 06, 2007 [id number] NEVIN WILLIAMSON PATIENT ANTHEM BCBS OF CT (BLUECARD) MEDICARE SUPPLEMEN [place] PSUED O MEDEX BRONZ E Jun 06, 2007 [id number] [phone] NEVIN WILLIAMSON PATIENT [place] MED[place]ARE SUPPLEMEN [place] MEDEX BRONZ E Jun 06, 2007 [id number] NEVIN WILLIAMSON PATIENT [place] MEDEX BRONZ E Jun 06, 2007 [id number] NEVIN WILLIAMSON PATIENT MEDICARE (WNR) MEDICARE (M) PART B Jun 06, 2007 PART B [id number] NEVIN WILLIAMSON PATIENT MEDICARE (WNR) MEDICARE (M) PART B Jun 06, 2007 PART B [id number] NEVIN WILLIAMSON PATIENT MEDICARE (WNR) MEDICARE (M) PART A Jan 04, 2003 PART A [id number] [phone] NEVIN WILLIAMSON PATIENT MEDICARE (WNR) MEDICARE (M) PART B Jan 04, 2003 PART B [id number] [phone] NEVIN WILLIAMSON PATIENT MEDICARE (WNR) MEDICARE (M) PART A Jan 04, 2003 PART A [id number] NEVIN WILLIAMSON PATIENT MEDICARE (WNR) MEDICARE (M) PART A Jan 04, 2003 PART A [id number] NEVIN WILLIAMSON PATIENT Selected Encounter This section includes the information on [place] at [place] for the Encounter. Date/Time Encounter Type Encounter Description Reason Pro vider Source Oct 24, 2023 02:53 PM Outpatient Encounter PODIATRY IHE Encounter Template Text not used by [place] Plan of Treatment: Future Appointments (+ 6 months) and Future Tests (+/- 45 days) The Plan of Treatment section includes future care activities for the patient from all [place] treatmentfacilities. This section includes future appointments and future orders which are active, pending or scheduled. Future Appointments This section includes appointments that were scheduled to occur 6 months from the date of the Encounter, up to a maximum of 20 appointments. The data comes from all [place] treatment facilities. Appointment Date/Time Appointment Type Appointme nt Facility Name Oct 29, 2023 08:00 AM AM[place]ULATORY [place]INE [place] [facility] Dec 04, 2023 10:00 AM AMBULATORY - MEDICINE [facility] [place] [place] [facility] December 11, 2023 10:00 AM AMBULATORY - MEDICINE [facility] [place] [facility] December 19, 2023 10:15 AM AMBULATORY - MEDICINE [facility] [place] [facility] December 19, 2023 11:00 AM AMBULATORY - MEDICINE [place] [facility] [place] [facility] January 01, 2024 10:40 AM AMBULATORY - MEDICINE [place] [facility] [place] [facility] Jan 08, 2024 10:00 AM AMBULATORY - MEDICINE [place] [facility] [place] [facility] Jan 08, 2024 10:30 AM AMBULATORY - MEDICINE [place] [facility] [place] [place] [facility] Jan 21, 2024 10:30 AM AMBULATORY - NONE [place] [place] [facility] Jan 31, 2024 02:15 PM AMBULATORY - NONE [place] [facility] [place] [facility] Feb 11, 2024 08:30 AM AMBULATORY - MEDICINE [place] [facility] [place] [facility] Mar 04, 2024 10:30 AM AMBULATORY - MEDICINE [place] [facility] [place] [place] [facility] Apr 17, 2024 10:45 AM AMBULATORY - MEDICINE [place] [facility] [place] [place] [facility] Apr 23, 2024 11:00 AM AMBULATORY - MEDICINE [place] [place] [facility] Apr 24, 2024 01:45 PM AMBULATORY - MEDICINE [place] [place] [facility] Social History: Smoking Status (Most current) and Tobacco Use (All prior to encounter date) This section includes the most current, and the historical, smoking and tobacco- related health factors from the [place] facility where the Encounter took place. Current Smoking Status This section includes the most current smoking, or tobacco-related health factor, from the [place] facility where the Encounter took place. Date/Time Current Smoking Status Comment Yessica maloney May 03, 2022 01:00 PM VA-TOBACCO FORMER USER [place] [facility] Tobacco Use History This section includes a history of the smoking, or tobacco-related health factors, that were collected on or before the date of the Encounter. The data comes from the [place] facility where the Encounter took place. Date/Time Smoking Status/Tobac co Use Comment Facility May 03, 2022 01:00 PM VA-TOBACCO QUIT 15 YRS OR MORE [place] [facility] [place] [facility] May 17, 2021 09:00 AM VA-TOBACCO FORMER USER [place] [facility] [facility] May 17, 2021 09:00 AM VA-TOBACCO QUIT 15 YRS OR MORE [place] [facility] May 28, 2020 03:00 PM VA-TOBACCO [facility]ER [place] [facility] May 28, 2020 03:00 PM VA-TOBACCO QUIT 5 TO < 15 YRS [place] [facility] Oct 04, 2018 11:04 AM VA-TOBACCO FORMER USER [place] [facility] Oct 04, 2018 11:04 AM VA-TOBACCO QUIT 1 TO < 5 YRS [place] [facility] Jan 24, 2018 01:52 PM CURRENT SMOKER [place] [facility] Jan 24, 2018 01:52 PM QUIT TOBACCO USE IN PAST YEAR quit ciagarettes 3 months [facility] Radiology Reports: +/- 30 days of the [...] the Encounter. The data comes from all [place] treatment facilities. Date/Time Radiology Report Provider Source Oct 04, 2023 01:[address] THORAX W/O CONT: NEVIN WILLIAMSON [id number] -[id number] M Exm Date: OCT 04, 2023@13:46 Req Phys: SUMAN PATHAK JAWED Pat Loc: CWM/NO/PACT 1 (Req'g Loc) Img Loc: [facility]/CT Service: Unknown (Case [id number] COMPLETE) CT THORAX W/O CONT (CT Detailed) CPT:60223 Reason for Study: low dose CT for lung cancer screening Clinical History: Last chest CT was done September 2022 and was stable Report Status: Verified Date Reported: OCT 04, 2023 Date Verified: OCT 04, 2023 Natural Sciences Department Chair E-Sig:/ES/GUILLERMINA NUNES JR Report: Study: Noncontrast CT [...] Primary Interpreting Staff: GUILLERMINA NUNES JR, Radiologist (Natural Sciences Department Chair) /GUILLERMINA MOTA JR [place] [facility] Encounter Notes: All associated encounter notes This section contains the clinical notes associated to the Encounter. Date/Time Encounter Note(s) Provider Source Oct 24, 2023 03:00 PM CLERICAL NOTE: LOCAL TITLE: APPOINTMENT NO SHOW STANDARD TITLE: CLERICAL NOTE DATE OF NOTE: OCT 24, 2023@15:00 ENTRY DATE: OCT 24, 2023@15:00:31 AUTHOR: INDERJIT MORALES EXP COSIGNER: URGENCY: STATUS: COMPLETED Patient Name: NEVIN WILLIAMSON Patient SSN: [id number] Date and time of Appointment No show : 10/24/23 14:53 PATIENT PHONE - PHONE NUMBER [CELLULAR] - NONE FOUND Patient's medical record was reviewed. Follow-up actions were determined and initiated: Please check/complete as applies: [X]Telephoned Directly [ ]Re-scheduled for next available appt [ ]Sent a N0-show letter ( must call for appointment) [ ]Other (Emergent/Overbook, etc.): Additional Comments: Letter was not sent - spoke to [place]. CPRS note entered asking for appointment. Scheduling error. Future Clinic Visits 12/04/2023 10:00 CWM/NO/DERMATOLOGY C/AM 12/11/2023 10:00 CWM/NO/DERMATOLOGY C/AM 01/08/2024 10:00 CWM/NO/PACT EIGHT 03/04/2024 10:30 CWM/NO/PODIATRY A 06/23/2024 10:30 NHM/ENDOCRINE 08/14/2024 09:00 CWM/NO/OPTOMETRY/ALTHEA /catalina/ INDERJIT MORALES LEAD CERTIFIED PHARMACY TECHNICIAN Signed: 10/24/2023 15:01 Receipt Acknowledged By: 10/25/2023 07:32 /es/ RE FARMER SUPERVISORY CERTIFIED PHARMACY TECHNICIAN INDERJIT MORALES [place] [facility] Oct 24, 2023 02:53 PM TELEPHONE ENCOUNTE R NOTE: LOCAL TITLE: TELEPHONE NOTE/SPECIALTY CLINIC STANDARD TITLE: TELEPHONE ENCOUNTER NOTE DATE OF NOTE: OCT 24, 2023@14:53 ENTRY DATE: OCT 24, 2023@14:54:02 AUTHOR: INDERJIT MORALES EXP COSIGNER: URGENCY: STATUS: COMPLETED Spoke to who was no-showed for appointment today. He states he called and cancelled this appointment yesterday (10/23/23) and was given the date of 10/29/23 at 800 am for the reschedule. had someone in the background of the phone verifying this information. [place] stated if he had been given the date of today, he would have been here. Is it possible to offer the [place] 10/29/23 at 800 am for an OVB? Please advise on scheduling. Thank you. /catalina/ INDERJIT MOARLES LEAD CERTIFIED PHARMACY TECHNICIAN Signed: 10/24/2023 14:55 Receipt Acknowledged By: 10/24/2023 17:00 /es/ ARJUN GARCIA DPM PODIATRY ATTENDING 10/25/2023 07:33 /es/ RE FARMER SUPERVISORY CERTIFIED PHARMACY TECHNICIAN 10/24/2023 15:33 /es/ NOAH BARON Podiatry Health Wood Casket Assembler INDERJIT MORALES [place] [facility] [employer] [facility] [employer]
--- OUTSIDE RECORDS SUMMARY | 2024-08-07 11:27 | XMS_ITS ---
Author Name [facility] [facility] [place] [facility] [place] Address [address] [place] [id number] Care Team Providers Care Elevated Motorman Name Role Phone RUBI CROWE Primary Care [...] O MEDEX BRONZ E Jun 06, 2007 [id number] NEVIN WILLIAMSON PATIENT ANTHEM BCBS OF [place] MEDICARE SUPPLEMEN SALVATORE PSUED O MEDEX BRONZ E Jun 06, 2007 [id number] NEVIN WILLIAMSON PATIENT ANTHEM BCBS OF [place] (BLUECARD) MEDICARE SUPPLEMEN [place] PSUED O MEDEX BRONZ E Jun 06, 2007 [id number] [phone] NEVIN WILLIAMSON PATIENT [place] MED[place] SUPPLEMEN [place] MEDEX BRONZ E Jun 06, 2007 [id number] [phone] NEVIN WILLIAMSON PATIENT [place] SUPPLEMEN [place] MEDEX BRONZ E Jun 06, 2007 [id number] NEVIN WILLIAMSON PATIENT MEDICARE (WNR) MEDICARE (M) PART B Jun 06, 2007 PART B [id number] [phone] NEVIN WILLIAMSON PATIENT MEDICARE (WNR) MEDICARE (M) PART B Jun 06, 2007 PART B [id number] NEVIN WILLIAMSON PATIENT MEDICARE (WNR) MEDICARE (M) PART A Jan 04, 2003 PART A [id number] NEVIN WILLIAMSON PATIENT MEDICARE (WNR) MEDICARE (M) PART A Jan 04, 2003 PART A [id number] NEVIN WILLIAMSON PATIENT MEDICARE (WNR) MEDICARE (M) PART B Jan 04, 2003 PART B [id number] [phone] NEVIN WILLIAMSON PATIENT MEDICARE (WNR) MEDICARE (M) PART A Jan 04, 2003 PART A [id number] [phone] NEVIN WILLIAMSON PATIENT Selected Encounter This section includes the information on record at NE for the Encounter. Date/Time Encounter Type Encounter Description Reason Provider Source Oct 29, 2023 08:00 AM OFFICE O/P EST LOW 20 MIN PODIATRY ICD-10-CM L60.3 Nail dystrophy MEJIA GARCIA Pepito Encounter Template Text not used by [place] Assessments - Encounter Diagnoses This section includes the primary and secondary diagnoses documented for the Encounter. Date/Time Primary/Secondary Diagnosis Diagnosis Name Provider Source Oct 29, 2023 08:18 AM PRIMARY Nail dystrophy MEJIA GARCIA [facility] [place] [facility] Plan of Treatment: Future Appointments (+ 6 months) and Future Tests (+/- 45 days) The Plan of Treatment section includes future care activities for the patient from all NE treatmentfacilities. This section includes future appointments and future orders which are active, pending or scheduled. Future Appointments This section includes appointments that were scheduled to occur 6 months from the date of the Encounter, up to a maximum of 20 appointments. The data comes from all [place] treatment facilities. Appointment Date/Time Appointment Type Appointme nt Facility Name Dec 04, 2023 10:00 AM AMBULATORY [facility] MEDICINE [facility] [place] [facility] December 11, 2023 10:00 AM AMBULATORY [facility] MEDICINE [facility] [place] [facility] December 19, 2023 10:15 AM AMBULATORY - MEDICINE [facility] [place] [facility] December 19, 2023 11:00 AM AMBULATORY - MEDICINE [facility] [place] [facility] January 01, 2024 10:40 AM AMBULATORY - MEDICINE [facility] [place] [facility] Jan 08, 2024 10:00 AM AMBULATORY - MEDICINE [facility] [place] [facility] Jan 08, 2024 10:30 AM AMBULATORY - MEDICINE [facility] [place] [facility] Jan 21, 2024 10:30 AM AMBULATORY - NONE [facility] [place] [facility] Jan 31, 2024 02:15 PM AMBULATORY - NONE [facility] [place] [facility] Feb 11, 2024 08:30 AM AMBULATORY - MEDICINE [facility] [place] [facility] Mar 04, 2024 10:30 AM AMBULATORY - MEDICINE [facility] [place] [facility] Apr 17, 2024 10:45 AM AMBULATORY - MEDICINE [facility] [place] [facility] Apr 23, 2024 11:00 AM AMBULATORY - MEDICINE [facility] [place] [facility] Apr 24, 2024 01:45 PM AMBULATORY - MEDICINE [facility] [place] [facility] Social History: Smoking Status (Most current) and Tobacco Use (All prior to encounter date) This section includes the most current, and the historical, smoking and tobacco- related health factors from the NE facility where the Encounter took place. Current Smoking Status This section includes the most current smoking, or tobacco-related health factor, from the NE facility where the Encounter took place. Date/Time Current Smoking Status Comment Facil it May 03, 2022 01:00 PM VA-TOBACCO FORMER USER [facility] [place] [facility] Tobacco Use History This section includes a history of the smoking, or tobacco-related health factors, that were collected on or before the date of the Encounter. The data comes from the NE facility where the Encounter took place. Date/Time Smoking Status/Tobac co Use Comment Facility May 03, 2022 01:00 PM VA-TOBACCO QUIT 15 YRS OR MORE [facility] [place] [facility] May 17, 2021 09:00 AM VA-TOBACCO FORMER USER [facility] [place] [facility] May 17, 2021 09:00 AM VA-TOBACCO QUIT 15 YRS OR MORE [facility] [place] [facility] May 28, 2020 03:00 PM VA-TOBACCO FORMER USER [facility] [place] [facility] May 28, 2020 03:00 PM VA-TOBACCO QUIT 5 TO < 15 YRS [facility] [place] [facility] Oct 04, 2018 11:04 AM VA-TOBACCO FORMER USER [place] [facility] [place] [facility] Oct 04, 2018 11:04 AM VA-TOBACCO QUIT 1 TO < 5 YRS [facility] [place] [facility] Jan 24, 2018 01:52 PM CURRENT SMOKER [facility] [place] [facility] Jan 24, 2018 01:52 PM QUIT TOBACCO USE IN PAST YEAR quit ciagarettes 3 months ago [facility] Radiology Reports: +/- 30 days of the [...] the Encounter. The data comes from all [place] treatment facilities. Date/Time Radiology Report Provider Source Oct 04, 2023 01:[address] THORAX W/O CONT: NEVIN WILLIAMSON [id number] -1940 M Exm Date: OCT 04, 2023@13:46 Req Phys: SUMAN PATHAK JAWYENIFER Pat Loc: CWM/NO/PACT 1 (Req'g Loc) Img Loc: [facility]/CT Service: Unknown (Case [id number] COMPLETE) CT THORAX W/O CONT (CT Detailed) CPT:73734 Reason for Study: low dose CT for lung cancer screening Clinical History: Last chest CT was done September 2022 and was stable Report Status: Verified Date Reported: OCT 04, 2023 Date Verified: OCT 04, 2023 Press Brake Operator E-Sig:/ES/GUILLERMINA NUNES JR Report: Study: Noncontrast CT [...] Primary Interpreting Staff: GUILLERMINA NUNES JR, Radiologist (Press Brake Operator) /GUILLERMINA MOTA JR [facility] Encounter Notes: All associated encounter notes This section contains the clinical notes associated to the Encounter. Date/Time Encounter Note(s) Provider Source Oct 29, 2023 07:52 AM PODIATRY NOTE: LOCAL TITLE: PODIATRY NOTE STANDARD TITLE: PODIATRY NOTE DATE OF NOTE: OCT 29, 2023@07:52 ENTRY DATE: OCT 29, 2023@07:53:42 AUTHOR: MEJIA GARCIA EXP COSIGNER: URGENCY: STATUS: COMPLETED [place]iat[place] [facility] [place] up Provider: Mejia Garcia Date: OCT 29, 2023 NEVIN WILLIAMSON [address], [place] [address] [birth year] 83 MALE [phone] PATIENT PHONE - Primary Care: SUMAN PATHAK Visit Concern:83 y.o. male for nail care. No prvious hx of amputation risk. No comnplaints otherwise today. 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 04/09/2019 MARIO ALBERTO MASTERSON Limitation of motion M25.511 04/09/2019 MARIO ALBERTO MASTERSON Decreased vitamin D E55.9 04/09/2019 MARIO ALBERTO MASTERSON H/O: glaucoma H40.89 10/04/2018 PETRMARIO ALBERTO SILVA Immunization status R69. 10/04/2018 PETROFF,ODILIAE Adult screening status R69. 10/04/2018 PETRMARIO ALBERTO SILVA Hyperlipidemia E78.5 02/01/2018 PETRSHIRA,MARIO ALBERTO Elderly fall R26.9 02/01/2018 MARIO ALBERTO MASTERSON Patient requires hospitalization R6 10/04/2018 ODILIA MASTERSONE Under care of multiple providers R6 04/02/2018 MARIO ALBERTO MASTERSON COPD - Chronic Obstructive Pulmonar 10/04/2018 LILIANA POTTS HTN - Hypertension ([facility] [id number]) I 12/13/2017 LILIANA POTTS Spinal Stenosis of Lumbar Region (S 12/13/2017 LILIANA POTTS Solitary Nodule of Lung (SCT 350209 12/13/2017 LILIANA POTTS Asbestos-induced pleural plaque R69 [...] may not be complete. Please check JLV. FACILITY ALLERGY/ADR -------- No Remote Allergy/ADR Data available for this patient [facility] [place] [facility] AUG[facility] [place] [facility] BEE VENOM [facility] [place] [facility] HYDROCHLOROTHIAZIDE Lab data: CBC TREND Collection DT Spec WBC RBC HGB HCT MCV MCH PLT 06/29/2023 08:43 BLOOD 6.36 4.32 13.2 40.7 94.2 30.6 222 08/22/2022 12:42 BLOOD 7.10 4.10 L 12.4 L 38.0 L 92.7 30.2 224 05/03/2022 12:23 BLOOD 8.05 4.26 12.6 L 38.5 L 90.4 29.6 216 02/16/2021 08:38 BLOOD 7.27 4.28 13.2 39.8 93.0 30.8 255 05/28/2020 15:42 BLOOD 6.74 4.38 13.8 40.0 91.3 31.5 263 CHEM 7 TREND LAB CUMULATIVE SELECTED Collection DT Spec GLUCOSE BUN CREATIN Sodium K+/Pot CL CO2 06/29/2023 08:43 SERUM 89 10 1.11 138 4.0 105 26 01/25/2023 12:05 SERUM 9 1.08 08/22/2022 12:42 SERUM 86 12 1.15 138 4.5 106 27 05/03/2022 12:23 SERUM 89 11 1.11 136 4.4 103 26 02/16/2021 08:38 SERUM 104 H 9 1.17 138 4.4 104 26 LAB CUMULATIVE SELECTED 2 No selection items chosen for this component. CHEM 7 Results Collection DT Spec Sodium K+/Pot CL CO2 GLUCOSE BUN 06/29/2023 08:43 SERUM 138 4.0 105 26 89 10 01/25/2023 12:05 SERUM 9 08/22/2022 12:42 SERUM 138 4.5 106 27 86 12 05/03/2022 12:23 SERUM 136 4.4 103 26 89 11 02/16/2021 08:38 SERUM 138 4.4 104 26 104 H 9 05/28/2020 15:42 SERUM 130 L 4.2 92 L 28 90 11 07/04/2019 08:13 SERUM 134 L 4.0 95 L 30 99 13 10/04/2018 11:10 SERUM 134 L 4.2 97 L 29 86 8 04/10/2018 10:55 SERUM 136 4.1 104 27 81 11 02/20/1996 16:13 SERUM 113 PT INR TREND No data available Imaging Reports: = Include data from 10/29/2022 to 10/29/2023 10/29/2023 08:04 CONFIDENTIAL IMAGING REPORTS SUMMARY pg. 1 NEVIN WILLIAMSON [id number] : 1940 II - Imaging Impression (max 1 occurrence) Date Procedure CPT Status Case # 10/04/2023 CT THORAX W/O CONT [id number] Verified 387 No new significant lung abnormality identified, as described above. Trace palpable DP PT pulses 1+ nonpitting [...] as results of the physical exam and internet marketing consultant opinions and recommendations as sought. Alternatives [...] -The on this visit was given information [facility] service and encouraged to enroll if not already having done so. /catalina/ MEJIA GARCIA DPM PODIATRY ATTENDING Signed: 10/29/2023 08:18 MEJIA GARCIA [facility]
--- OUTSIDE RECORDS SUMMARY | 2024-08-07 11:27 | XMS_ITS ---
Author Name [facility] [place] Organization [place] Address [address] [place] [address] Care Team Providers Care Load Manager Name Role Phone RUBI CROWE Primary Care [...] O MEDEX BRONZ E [birth year], 2007 [id number] NEVIN WILLIAMSON PATIENT ANTHEM BCBS OF [place] MEDICARE SUPPLEMEN [place]ATORE PSUED O MEDEX BRONZ E Jun 06, 2007 [id number] [phone] NEVIN WILLIAMSON PATIENT ANTHEM BCBS OF [place] (BLUECARD) MEDICARE SUPPLEMEN [place] PSUED O MEDEX BRONZ E Jun 06, 2007 [id number] NEVIN WILLIAMSON PATIENT [place] MED[place] SUPPLEMEN [place] MEDEX BRONZ E Jun 06, 2007 [id number] NEVIN WILLIAMSON PATIENT [place]PP[place] MEDEX BRONZ E Jun 06, 2007 [id number] [phone] NEVIN WILLIAMSON PATIENT MEDICARE (WNR) MEDICARE (M) PART B Jun 06, 2007 PART B [id number] NEVIN WILLIAMSON PATIENT MEDICARE (WNR) MEDICARE (M) PART B Jun 06, 2007 PART B [id number] NEVIN WILLIAMSON PATIENT MEDICARE (WNR) MEDICARE (M) PART A Jan 04, 2003 PART A [id number] NEVIN WILLIAMSON PATIENT MEDICARE (WNR) MEDICARE (M) PART B Jan 04, 2003 PART B [id number] NEVIN WILLIAMSON PATIENT MEDICARE (WNR) MEDICARE (M) PART A Jan 04, 2003 PART A [id number] NEVIN WILLIAMSON PATIENT MEDICARE (WNR) MEDICARE (M) PART A Jan 04, 2003 PART A [id number] [phone] NEVIN WILLIAMSON PATIENT Selected Encounter This section includes the information on record at [place] for the Encounter. Date/Time Encounter Type Encounter Description Reason Pro vider Source Oct 05, 2023 09:30 AM Outpatient Encounter COMMUNITY CARE CONSULT IHE Encounter Template Text not used by [place] Plan of Treatment: Future Appointments (+ 6 [...] 10, 2023 06:00 AM AMBULATORY - MEDICINE [place] [facility] [place] [facility] Oct 24, 2023 08:00 AM AMBULATORY - MEDICINE [place] [facility] [place] [facility] Oct 29, 2023 08:00 AM AMBULATORY - MEDICINE [place] [facility] [place] [facility] Dec 04, 2023 10:00 AM AMBULATORY - MEDICINE [place] [facility] [place] [facility] December 11, 2023 10:00 AM AMBULATORY - MEDICINE [facility] [place] [facility] December 19, 2023 10:15 AM AMBULATORY - MEDICINE [facility] [place] [facility] December 19, 2023 11:00 AM AMBULATORY - MEDICINE [facility] [place] [facility] January 01, 2024 10:40 AM AMBULATORY - MEDICINE [facility] [place] [facility] Jan 08, 2024 10:00 AM AMBULATORY - MEDICINE [facility] [place] [facility] Jan 08, 2024 10:30 AM AMBULATORY - MEDICINE [facility] [place] [facility] Jan 21, 2024 10:30 AM AMBULATORY - NONE [facility] [place] [facility] Jan 31, 2024 02:15 PM AMBULATORY - NONE [facility] [place] [facility] Feb 11, 2024 08:30 AM AMBULATORY - MEDICINE [facility] [place] [facility] Mar 04, 2024 10:30 AM AMBULATORY - MEDICINE [facility] [place] [facility] Social History: Smoking Status (Most current) and [...] took place. Date/Time Current Smoking Status Comment [facility] May 03, 2022 01:00 PM VA-TOBACCO FORMER USER [place] [facility] [place] [facility] Tobacco Use History This section includes a history of the smoking, or tobacco-related health factors, that were collected on or before the date of the Encounter. The data comes from the [place] facility where the Encounter took place. Date/Time Smoking Status/Tobac co Use Comment Facility May 03, 2022 01:00 PM VA-TOBACCO QUIT 15 YRS OR MORE [facility] [place] [facility] May 17, 2021 09:00 AM VA-TOBACCO FORMER USER [facility] [place] [facility] May 17, 2021 09:00 AM VA-TOBACCO QUIT 15 YRS OR MORE [facility] [place] [facility] May 28, 2020 03:00 PM VA-TOBACCO FORMER USER [place] [facility] [place] [facility] May 28, 2020 03:00 PM VA-TOBACCO QUIT 5 TO < 15 YRS [place] [facility] [place] [facility] Oct 04, 2018 11:04 AM VA-TOBACCO FORMER USER [place] [facility] [place] [facility] Oct 04, 2018 11:04 AM VA-TOBACCO QUIT 1 TO < 5 YRS [facility] [place] [facility] Jan 24, 2018 01:52 PM CURRENT SMOKER [place] [facility] [place] [facility] Jan 24, 2018 01:52 PM QUIT TOBACCO USE IN PAST YEAR quit ciagarettes 3 months ago [facility] Radiology Reports: +/- 30 days of the [...] data comes from all [place] treatment facilities. Date/Time Radiology Report Provider Source Oct 04, 2023 01:[address] THORAX W/O CONT: CLAYNEVIN L [id number] -1940 M Exm Date: OCT 04, 2023@13:46 Req Phys: AHMED,MOHAMMED JAWED Pat Loc: CWM/NO/PACT 1 (Req'g Loc) Img Loc: [facility]/CT Service: Unknown (Case [id number] COMPLETE) CT THORAX W/O CONT (CT Detailed) CPT:28783 Reason for Study: low dose CT for lung cancer screening Clinical History: Last chest CT was done September 2022 and was stable Report Status: Verified Date Reported: OCT 04, 2023 Date Verified: OCT 04, 2023 Dough Mixer Operator E-Sig:/ES/GUILLERMINA NUNES JR Report: Study: Noncontrast [...] Primary Interpreting Staff: GUILLERMINA NUNES JR, Radiologist (Dough Mixer Operator) /GUILLERMINA MOTA JR [facility] Encounter Notes: All associated encounter notes This section contains the clinical notes associated to the Encounter. Date/Time Encounter Note(s) Provider Source Oct 05, 2023 12:41 PM ADDENDUM: LOCAL TITLE: Addendum STANDARD TITLE: ADDENDUM DATE OF NOTE: OCT 05, 2023@12:41:43 ENTRY DATE: OCT 05, 2023@12:41:44 AUTHOR: AGUS KING EXP COSIGNER: URGENCY: STATUS: COMPLETED CC Consult placed held for krishna /catalina/ AGUS KING REGISTERED NURSE Signed: 10/05/2023 12:42 Receipt Acknowledged By: 10/05/2023 16:41 /rowena PATHAK MD STAFF PHYSICIAN === --- Original Document --- 10/05/23 ADMINISTRATIVE NOTE: is being followed by DX: ischemic cardiomyopathy Please submit a new community care cardiology consult if in agreement is scheduled 10-10-23 with this provider NPI# [id number] Phone# [phone] Fax# [phone] Ashley BARNES Signed: 10/05/2023 09:36 Receipt Acknowledged By: 10/05/2023 16:39 /rowena PATHAK MD STAFF PHYSICIAN 10/05/2023 12:34 /catalina/ AGUS KING REGISTERED NURSE AGUS KING [facility] [place] [facility] Oct 05, 2023 09:30 AM ADMINISTRATIVE NOTE: LOCAL TITLE: ADMINISTRATIVE NOTE STANDARD TITLE: ADMINISTRATIVE NOTE DATE OF NOTE: OCT 05, 2023@09:30 ENTRY DATE: OCT 05, 2023@09:30:26 AUTHOR: CONNIE BARNES EXP COSIGNER: URGENCY: STATUS: COMPLETED ADMINISTRATIVE NOTE Has ADDENDA Kendall is being followed by DX: ischemic cardiomyopathy Please submit a new community care cardiology consult if in agreement Kendall is scheduled 10-10-23 with this provider NPI# [id number] Phone# [phone] Fax# [phone] Ashley BARNES Signed: 10/05/2023 09:36 Receipt Acknowledged By: 10/05/2023 16:39 /es/ SUMAN PATHAK MD STAFF PHYSICIAN 10/05/2023 12:34 /es/ AGUS KING REGISTERED NURSE 10/05/2023 ADDENDUM STATUS: COMPLETED CC Consult placed held for signature /catalina/ AGUS KING REGISTERED NURSE Signed: 10/05/2023 12:42 Receipt Acknowledged By: * AWAITING SIGNATURE * SUMAN PATHAK CORINNE MARIE [facility]
--- OUTSIDE RECORDS SUMMARY | 2024-08-07 11:27 | XMS_ITS | Encounter Summary ---
Author Name [facility] [place] [place] Organization [facility] [place] Address [address] [place] [address] Care Team Providers Care Clerical Office Name Role Phone RUBI CROWE Primary Care [...] O MEDEX BRONZ E Jun 06, 2007 [id number] NEVIN WILLIAMSON PATIENT ANTHEM BCBS OF CT MEDICARE SUPPLEMEN [place] PSUED O MEDEX BRONZ E Jun 06, 2007 [id number] NEVIN WILLIAMSON PATIENT ANTHEM BCBS OF CT (BLUECARD) MEDICARE SUPPLEMEN [place] PSUED O MEDEX BRONZ E Jun 06, 2007 [id number] NEVIN WILLIAMSON PATIENT [place]BS [place] MEDIC[place] SUPPLEMEN [place] MEDEX BRONZ E Jun 06, 2007 [id number] NEVIN WILLIAMSON PATIENT [place]PPLE[place] MEDEX BRONZ E Jun 06, 2007 [id number] [phone] NEVIN WILLIAMSON PATIENT MEDICARE (WNR) MEDICARE (M) PART B Jun 06, 2007 PART B [id number] NEVIN WILLIAMSON PATIENT MEDICARE (WNR) MEDICARE (M) PART B Jun 06, 2007 PART B [id number] NEVIN WILLIAMSON PATIENT MEDICARE (WNR) MEDICARE (M) PART A Jan 04, 2003 PART A [id number] NEVIN WILLIAMSON PATIENT MEDICARE (WNR) MEDICARE (M) PART A Jan 04, 2003 PART A [id number] NEVIN WILLIAMSON PATIENT MEDICARE (WNR) MEDICARE (M) PART B Jan 04, 2003 PART B [id number] NEVIN WILLIAMSON PATIENT MEDICARE (WNR) MEDICARE (M) PART A Jan 04, 2003 PART A [id number] NEVIN WILLIAMSON PATIENT Selected Encounter This section includes the information on record at CT for the Encounter. Date/Time Encounter Type Encounter Description Reason Pro vider Source Nov 26, 2023 09:56 AM Outpatient Encounter OPTOMETRY IHE Encounter Template Text not used by CT Plan of Treatment: Future Appointments (+ 6 months) and Future Tests (+/- 45 days) The Plan of Treatment section includes future care activities for the patient from all CT treatmentfacilities. This section includes future appointments and future orders which are active, pending or scheduled. Future Appointments This section includes appointments that were scheduled to occur 6 months from the date of the Encounter, up to a maximum of 20 appointments. The data comes from all CT treatment facilities. Appointment Date/Time Appointment Type Appointme nt Facility Name Dec 04, 2023 10:00 AM AMBULATORY - MEDICINE [facility] [place] [place] [facility] December 11, 2023 10:00 AM AMBULATORY - MEDICINE [facility] C [facility] [place] [facility] December 19, 2023 10:15 AM AMBULATORY - MEDICINE [facility] [place] [facility] December 19, 2023 11:00 AM AMBULATORY - MEDICINE [facility] C [facility] [place] [facility] January 01, 2024 10:40 AM AMBULATORY - MEDICINE [facility] [place] [facility] Jan 08, 2024 10:00 AM AMBULATORY - MEDICINE [place] [facility] [place] [facility] Jan 08, 2024 10:30 AM AMBULATORY - MEDICINE [place] [facility] [place] [facility] Jan 21, 2024 10:30 AM AMBULATORY - NONE [facility] [place] [facility] Jan 31, 2024 02:15 PM AMBULATORY - NONE [facility] [place] [facility] Feb 11, 2024 08:30 AM AMBULATORY - MEDICINE [facility] [place] [facility] Mar 04, 2024 10:30 AM AMBULATORY - MEDICINE [place] [facility] [place] [facility] Apr 17, 2024 10:45 AM AMBULATORY - MEDICINE [place] [facility] [place] [facility] Apr 23, 2024 11:00 AM AMBULATORY - MEDICINE [place] [facility] [place] [facility] Apr 24, 2024 01:45 PM AMBULATORY - MEDICINE [place] [facility] [place] [facility] May 13, 2024 11:00 AM AMBULATORY - MEDICINE [facility] C [facility] [place] [facility] Social History: Smoking Status (Most current) and Tobacco Use (All prior to encounter date) This section includes the most current, and the historical, smoking and tobacco- related health factors from the [place] facility where the Encounter took place. Current Smoking Status This section includes the most current smoking, or tobacco-related health factor, from the [place] facility where the Encounter took place. Date/Time Current Smoking Status Comment Yessica huizar May 03, 2022 01:00 PM VA-TOBACCO [facility]IT 15 [facility] Tobacco Use History This section includes a history of the smoking, or tobacco-related health factors, that were collected on or before the date of the Encounter. The data comes from the [place] facility where the Encounter took place. Date/Time Smoking Status/Tobac co Use Comment Facility May 03, 2022 01:00 PM VA-TOBACCO QUIT [address] [facility] [place] [facility] May 17, 2021 09:00 AM VA-TOBACCO FORMER USER CT [facility] [place] [facility] May 17, 2021 09:00 AM VA-TOBACCO QUIT [address] [facility] [place] [facility] May 28, 2020 03:00 PM VA-TOBACCO FORMER USER CT [facility] [place] [facility] May 28, 2020 03:00 PM VA-TOBACCO QUIT 5 TO < 15 YRS [facility] [facility] Oct 04, 2018 11:04 AM VA-TOBACCO FORMER USER CT [facility] [place] [facility] Oct 04, 2018 11:04 AM VA-TOBACCO QUIT 1 TO < [address] [facility] [place] [place] [facility] Jan 24, 2018 01:[address] [facility] [place] [facility] Jan 24, 2018 01:52 PM QUIT TOBACCO USE IN PAST YEAR quit ciagarettes 3 months ago [facility] Encounter Notes: All associated encounter notes This section contains the clinical notes associated to the Encounter. Date/Time Encounter Note(s) Provider Source Nov 26, 2023 09:56 AM TELEPHONE ENCOUNTE R NOTE: LOCAL TITLE: TELEPHONE NOTE/SPECIALTY CLINIC STANDARD TITLE: TELEPHONE ENCOUNTER NOTE DATE OF NOTE: NOV 26, 2023@09:56 ENTRY DATE: NOV 26, 2023@09:56:26 AUTHOR: YUE ALARCON EXP COSIGNER: URGENCY: STATUS: COMPLETED TELEPHONE NOTE/SPECIALTY CLINIC Has ADDENDA called stating that he did not want to schedule with due to transportation issues. In his opinion he thinks that he should be scheduled with [facility] in [place]. Pt unsure on what to do and asking to speak with . /catalina/ YUE ALARCON ADVANCED CUSTOMER MARKETING INTERN Signed: 11/26/2023 10:01 Receipt Acknowledged By: 11/26/2023 10:57 /catalina/ Garrick Tay OD CHIEF OF OPTOMETRY 11/26/2023 ADDENDUM STATUS: COMPLETED Spoke with patient now and he agreed to change consult to [facility] in [place] due to transportation difficulties and getting to [place] to see Dr. Sandhu. Updated consult now to reflect change of provider to [facility] and alerted community care office. Patient appreciated return call and change in consult. /catalina/ Garrick Tay OD CHIEF OF OPTOMETRY Signed: 11/26/2023 10:58 YUE ALARCON CN[facility]L [facility]
--- OUTSIDE RECORDS SUMMARY | 2024-08-07 11:27 | XMS_ITS | Encounter Summary ---
Author Name [facility] [place] Address [address] [place] [address] Care Team Providers Care Assistant Account Executive Name Role Phone RUBI CROWE Primary [...] O MEDEX BRONZ E Jun 06, 2007 [id number] NEVIN WILLIAMSON PATIENT ANTHEM BCBS OF CT MEDICARE SUPPLEMEN [place] PSUED O MEDEX BRONZ E Jun 06, 2007 [id number] NEVIN WILLIAMSON PATIENT ANTHEM BCBS OF [place] (BLUECARD) MEDICARE SUPPLEMEN [place] PSUED O MEDEX BRONZ E Jun 06, 2007 [id number] NEVIN WILLIAMSON PATIENT [place]BS [place] MEDICARE SUPPLEMEN [place]ORE MEDEX BRONZ E Jun 06, 2007 [id number] [phone] NEVIN WILLIAMSON PATIENT [place]PP[place] MEDEX BRONZ E Jun 06, 2007 [id number] [phone] NEVIN WILLIAMSON PATIENT MEDICARE (WNR) MEDICARE (M) PART B Jun 06, 2007 PART B [id number] NEVIN WILLIAMSON PATIENT MEDICARE (WNR) MEDICARE (M) PART B Jun 06, 2007 PART B [id number] NEVIN WILLIAMSON PATIENT MEDICARE (WNR) MEDICARE (M) PART A Jan 04, 2003 PART A [id number] NEVIN WILLIAMSON PATIENT MEDICARE (WNR) MEDICARE (M) PART A Jan 04, 2003 PART A [id number] NEVIN WILLIAMSON PATIENT MEDICARE (WNR) MEDICARE (M) PART B Jan 04, 2003 PART B [id number] NEVIN WILLIAMSON PATIENT MEDICARE (WNR) MEDICARE (M) PART A Jan 04, 2003 PART A [id number] NEVIN WILLIAMSON PATIENT Selected Encounter This section includes the information on record at [place] for the Encounter. Date/Time Encounter Type Encounter Description Reason Pro vider Source Oct 05, 2023 11:05 AM Outpatient Encounter OPTOMETRY IHE Encounter Template Text not used by [place] Plan of Treatment: Future Appointments (+ 6 [...] 10, 2023 06:00 AM AMBULATORY - MEDICINE [place] [facility] [place] [facility] Oct 24, 2023 08:00 AM AMBULATORY - MEDICINE [place] [facility] [place] [facility] Oct 29, 2023 08:00 AM AMBULATORY - MEDICINE [place] [facility] [place] [facility] Dec 04, 2023 10:00 AM AMBULATORY - MEDICINE [place] [facility] [place] [facility] December 11, 2023 10:00 AM AMBULATORY - MEDICINE [place] [facility] [place] [facility] December 19, 2023 10:15 AM AMBULATORY - MEDICINE [place] [facility] [place] [facility] December 19, 2023 11:00 AM AMBULATORY - MEDICINE [place] [facility] [place] [facility] January 01, 2024 10:40 AM AMBULATORY - MEDICINE [place] [facility] [place] [facility] Jan 08, 2024 10:00 AM AMBULATORY - MEDICINE [place] [facility] [place] [facility] Jan 08, 2024 10:30 AM AMBULATORY - MEDICINE [place] [facility] [place] [facility] Jan 21, 2024 10:30 AM AMBULATORY - NONE [place] [facility] [place] [facility] Jan 31, 2024 02:15 PM AMBULATORY - NONE [place] [facility] [place] [facility] Feb 11, 2024 08:30 AM AMBULATORY - MEDICINE [place] [facility] [place] [facility] Mar 04, 2024 10:30 AM AMBULATORY - MEDICINE [place] [facility] [place] [facility] Social History: Smoking Status (Most [...] took place. Date/Time Current Smoking Status Comment [facility] it May 03, 2022 01:00 PM VA-TOBACCO QUIT 15 YRS OR MORE NE [facility] Tobacco Use History This section includes a history of the smoking, or tobacco-related health factors, that were collected on or before the date of the Encounter. The data comes from the [place] facility where the Encounter took place. Date/Time Smoking Status/Tobac co Use Comment Facility May 03, 2022 01:00 PM VA-TOBACCO QUIT 15 YRS OR MORE [place] [facility] [place] [facility] May 17, 2021 09:00 AM VA-TOBACCO FORMER USER [place] [facility] [place] [facility] May 17, 2021 09:00 AM VA-TOBACCO QUIT 15 YRS OR MORE [place] [facility] [place] [facility] May 28, 2020 03:00 PM VA-TOBACCO FORMER USER [place] [facility] [place] [facility] May 28, 2020 03:00 PM VA-TOBACCO QUIT 5 TO < 15 YRS [place] [facility] [place] [facility] Oct 04, 2018 11:04 AM VA-TOBACCO FORMER USER [place] [facility] [place] [facility] Oct 04, 2018 11:04 AM VA-TOBACCO QUIT 1 TO < 5 YRS [place] [facility] [place] [facility] Jan 24, 2018 01:52 PM CURRENT SMOKER [place] [facility] [place] [facility] Jan 24, 2018 01:52 PM QUIT TOBACCO USE IN PAST YEAR quit ciagarettes 3 months ago [facility] Radiology Reports: +/- 30 days [...] PM CT THORAX W/O CONT: NEVIN WILLIAMSON [id number] -1940 M Exm Date: OCT 04, 2023@13:46 Req Phys: AHMED,MOHAMMED JAWED Pat Loc: CWM/NO/PACT 1 (Req'g Loc) Img Loc: [facility]/CT Service: Unknown (Case [id number] COMPLETE) CT THORAX W/O CONT (CT Detailed) CPT:26697 Reason for Study: low dose CT for lung cancer screening Clinical History: Last chest CT was done September 2022 and was stable Report Status: Verified Date Reported: OCT 04, 2023 Date Verified: OCT 04, 2023 Software Configuration Analyst E-Sig:/ES/GUILLERMINA NUNES JR Report: Study: Noncontrast CT [...] Primary Interpreting Staff: GUILLERMINA NUNES JR, Radiologist (Software Configuration Analyst) /GUILLERMINA MOTA JR [place] CNT [facility] [employer] Encounter Notes: All associated encounter notes This section contains the clinical notes associated to the Encounter. Date/Time Encounter Note(s) Provider Source Oct 05, 2023 11:05 AM ADMINISTRATIVE NOT E: LOCAL TITLE: ADMINISTRATIVE RECALL NOTE STANDARD TITLE: ADMINISTRATIVE NOTE DATE OF NOTE: OCT 05, 2023@11:05 ENTRY DATE: OCT 05, 2023@11:05:13 AUTHOR: YUE ALARCON EXP COSIGNER: URGENCY: STATUS: COMPLETED RTC orders: Unable to contact patient: Attempts to contact: 1st attempt: Left voicemail 2nd attempt: Letter mailedDisposition onOct 3rd attempt: 4th attempt: /catalina/ YUE ALARCON ADVANCED MANAGER QUALITY SYSTEMS Signed: 10/05/2023 11:05 Receipt Acknowledged By: 10/08/2023 07:51 /catalina/ RE FARMER SUPERVISORY MANAGER QUALITY SYSTEMS YUE ALARCON NE [facility] [employer]
--- OUTSIDE RECORDS SUMMARY | 2024-08-07 11:28 | XMS_ITS ---
Author Name [facility] [place] Organization [place] Address [address] [place] [address] Care Team Providers Care Raw Products Director Name Role Phone RUBI CROWE Primary Care [...] O MEDEX BRONZ E Jun 06, 2007 [id number] [phone] NEVIN WILLIAMSON PATIENT ANTHEM BCBS OF CT MEDICARE SUPPLEMEN [place] PSUED O MEDEX BRONZ E Jun 06, 2007 [id number] [phone] NEVIN WILLIAMSON PATIENT ANTHEM BCBS OF CT (BLUECARD) MEDICARE SUPPLEMEN [place] PSUED O MEDEX BRONZ E Jun 06, 2007 [id number] [phone] NEVIN WILLIAMSON PATIENT BCBS [place] MED[place] SUPPLEMEN [place] MEDEX BRONZ E Jun 06, 2007 [id number] NEVIN WILLIAMSON PATIENT [place]PPLE[place] MEDEX BRONZ E Jun 06, 2007 [id number] NEVIN WILLIAMSON PATIENT MEDICARE (WNR) MEDICARE (M) PART B Jun 06, 2007 PART B [id number] NEVIN WILLIAMSON PATIENT MEDICARE (WNR) MEDICARE (M) PART B Jun 06, 2007 PART B [id number] NEVIN WILLIAMSON PATIENT MEDICARE (WNR) MEDICARE (M) PART A Jan 04, 2003 PART A [id number] [phone] NEVIN WILLIAMSON PATIENT MEDICARE (WNR) MEDICARE (M) PART B Jan 04, 2003 PART B [id number] NEVIN WILLIAMSON PATIENT MEDICARE (WNR) MEDICARE (M) PART A Jan 04, 2003 PART A [id number] NEVIN WILLIAMSON PATIENT MEDICARE (WNR) MEDICARE (M) PART A Jan 04, 2003 PART A [id number] NEVIN WILLIAMSON PATIENT Selected Encounter This section includes the information on record at [place] for the Encounter. Date/Time Encounter Type Encounter Description Reason Pro vider Source Oct 10, 2023 12:00 AM Outpatient Encounter COMMUNITY CARE CONSULT IHE Encounter Template Text not used by [place] Plan of Treatment: Future Appointments (+ 6 months) and Future Tests (+/- 45 days) The Plan of Treatment section includes future care activities for the patient from all [place] treatmentfacilities. This section includes future appointments and future orders which are active, pending or scheduled. Future Appointments This section includes appointments that were scheduled to occur 6 months from the date of the Encounter, up to a maximum of 20 appointments. The data comes from all [place] treatment facilities. Appointment Date/Time Appointment Type Appointme nt Facility Name Oct 24, 2023 08:00 AM AMBULATORY - MEDICINE [place] [facility] Oct 29, 2023 08:00 AM AMBULATORY - MEDICINE [place] [facility] Dec 04, 2023 10:00 AM AMBULATORY - MEDICINE [place] [facility] [place] [facility] December 11, 2023 10:00 AM AMBULATORY - MEDICINE [place] [facility] [place] [place] [facility] December 19, 2023 10:15 AM AMBULATORY - MEDICINE [place] [facility] [place] [facility] December 19, 2023 11:00 AM AMBULATORY - MEDICINE [place] [facility] [place] [facility] January 01, 2024 10:40 AM AMBULATORY - MEDICINE [place] [facility] [place] [facility] Jan 08, 2024 10:00 AM AMBULATORY - MEDICINE [place] [facility] [place] [facility] Jan 08, 2024 10:30 AM AMBULATORY - MEDICINE [place] [facility] [place] [facility] Jan 21, 2024 10:30 AM AMBULATORY - NONE [place] [facility] [place] [facility] Jan 31, 2024 02:15 PM AMBULATORY - NONE [place] [facility] [place] [facility] Feb 11, 2024 08:30 AM AMBULATORY - MEDICINE [place] [facility] [place] [facility] Mar 04, 2024 10:30 AM AMBULATORY - MEDICINE [place] [facility] [place] [facility] Social History: Smoking Status (Most current) and Tobacco Use (All prior to encounter date) This section includes the most current, and the historical, smoking and tobacco- related health factors from the [place] facility where the Encounter took place. Current Smoking Status This section includes the most current smoking, or tobacco-related health factor, from the [place] facility where the Encounter took place. Date/Time Current Smoking Status Comment [facility] May 03, 2022 01:00 PM VA-TOBACCO FORMER USER [place] [facility] [place] [facility] Tobacco Use History This section includes a history of the smoking, or tobacco-related health factors, that were collected on or before the date of the Encounter. The data comes from the [place] facility where the Encounter took place. Date/Time Smoking Status/Tobac co Use Comment Facility May 03, 2022 01:00 PM VA-TOBACCO QUIT 15 YRS OR MORE [place] [facility] [place] [facility] May 17, 2021 09:00 AM VA-TOBACCO FORMER USER [place] [facility] [place] [facility] May 17, 2021 09:00 AM VA-TOBACCO QUIT 15 YRS OR MORE [facility] [place] [facility] May 28, 2020 03:00 PM VA-TOBACCO FORMER USER [place] [facility] [place] [facility] May 28, 2020 03:00 PM VA-TOBACCO QUIT 5 TO < 15 YRS [facility] Oct 04, 2018 11:04 AM [facility] Oct 04, 2018 11:04 AM VA-TOBACCO QUIT 1 TO < 5 YRS [facility] Jan 24, 2018 01:52 PM [facility] Jan 24, 2018 01:52 PM QUIT TOBACCO USE IN PAST YEAR quit ciagarettes 3 months ago [facility] Radiology Reports: +/- 30 days of the [...] the Encounter. The data comes from all [place] treatment facilities. Date/Time Radiology Report Provider Source Oct 04, 2023 01:[address] THORAX W/O CONT: NEVIN WILLIAMSON [id number] -[id number] M Exm Date: OCT 04, 2023@13:46 Req Phys: SUMAN PATHAK Pat Loc: CWM/NO/PACT 1 (Req'g Loc) Img Loc: [facility]/CT Service: Unknown (Case [id number] COMPLETE) CT THORAX W/O CONT (CT Detailed) CPT:86710 Reason for Study: low dose CT for lung cancer screening Clinical History: Last chest CT was done September 2022 and was stable Report Status: Verified Date Reported: OCT 04, 2023 Date Verified: OCT 04, 2023 Line Camera Operator E-Sig:/ES/GUILLERMINA NUNES JR Report: Study: Noncontrast [...] Primary Interpreting Staff: GUILLERMINA NUNES JR, Radiologist (Line Camera Operator) /GUILLERMINA MOTA JR [facility] Encounter Notes: All associated encounter notes This section contains the clinical notes associated to the Encounter. Date/Time Encounter Note(s) Provider Source Oct 10, 2023 12:00 AM NONVA CONSULT: LOCAL TITLE: COMMUNITY CARE-CONSULT RESULT NOTE STANDARD TITLE: NONVA CONSULT DATE OF NOTE: OCT 10, 2023 ENTRY DATE: MAR 31, 2024@14:43:39 AUTHOR: ST ONGE,ADÁN M EXP COSIGNER: URGENCY: STATUS: COMPLETED VistA Imaging - Scanned Document SCANNED DOCUMENT SIGNATURE NOT REQUIRED Electronically Filed: 03/31/2024 by: ADÁN VELASCO LICENSED PRACTICAL NURSE ADÁN VELASCO CNTRL [facility]
--- OUTSIDE RECORDS SUMMARY | 2024-08-07 11:28 | XMS_ITS ---
Author Name [facility] Organization [facility] Address [address] [place] [address] Care Team Providers Care Optical Instrument Assembly Supervisor Name Role Phone RUBI CROWE Primary Care [...] O MEDEX BRONZ E Jun 06, 2007 [id number] [phone] NEVIN WILLIAMSON PATIENT ANTHEM BCBS OF CT MEDICARE SUPPLEMEN SALVATORE PSUED O MEDEX BRONZ E Jun 06, 2007 [id number] NEVIN WILLIAMSON PATIENT ANTHEM BCBS OF CT (BLUECARD) MEDICARE SUPPLEMEN SALVATORE PSUED O MEDEX BRONZ E Jun 06, 2007 [id number] NEVIN WILLIAMSON PATIENT BCBS CT MEDICARE SUPPLEMEN SALVATORE MEDEX BRONZ E Jun 06, 2007 [id number] NEVIN WILLIAMSON PATIENT BCBS CT MEDICARE SUPPLEMEN SALVATORE MEDEX BRONZ E Jun 06, 2007 [id number] [phone] NEVIN WILLIAMSON PATIENT MEDICARE (WNR) MEDICARE (M) PART B Jun 06, 2007 PART B [id number] NEVIN WILLIAMSON PATIENT MEDICARE (WNR) MEDICARE (M) PART B Jun 06, 2007 PART B [id number] [phone] NEVIN WILLIAMSON PATIENT MEDICARE (WNR) MEDICARE (M) PART A Jan 04, 2003 PART A [id number] NEVIN WILLIAMSON PATIENT MEDICARE (WNR) MEDICARE (M) PART A Jan 04, 2003 PART A [id number] NEVIN WILLIAMSON PATIENT MEDICARE (WNR) MEDICARE (M) PART A Jan 04, 2003 PART A [id number] NEVIN WILLIAMSON PATIENT MEDICARE (WNR) MEDICARE (M) PART B Jan 04, 2003 PART B [id number] [phone] NEVIN WILLIAMSON PATIENT Selected Encounter This section includes the information on record at ID for the Encounter. Date/Time Encounter Type Encounter Description Reason Pro vider Source Mar 21, 2024 12:00 PM Outpatient Encounter COMMUNITY CARE CONSULT IHE Encounter Template Text not used by ID Plan of Treatment: Future Appointments (+ 6 months) and Future Tests (+/- 45 days) The Plan of Treatment section includes future care activities for the patient from all ID treatmentfacilities. This section includes future appointments and future orders which are active, pending or scheduled. Future Appointments This section includes appointments that were scheduled to occur 6 months from the date of the Encounter, up to a maximum of 20 appointments. The data comes from all ID treatment facilities. Appointment Date/Time Appointment Type Appointme nt Facility Name Apr 17, 2024 10:45 AM AMBULATORY - MEDICINE [facility] [place] [facility] Apr 23, 2024 11:00 AM AMBULATORY - MEDICINE [facility] [place] [facility] Apr 24, 2024 01:45 PM AMBULATORY - MEDICINE [facility] [place] [facility] May 13, 2024 11:00 AM AMBULATORY - MEDICINE [facility] [place] [facility] Jun 23, 2024 10:30 AM AMBULATORY - NONE [facility] [place] [facility] Jun 23, 2024 11:30 AM AMBULATORY - MEDICINE [facility] [place] [facility] Jun 30, 2024 10:00 AM AMBULATORY - MEDICINE [facility] [place] [facility] Aug 04, 2024 09:30 AM AMBULATORY - MEDICINE [facility] [place] [facility] Aug 12, 2024 11:00 AM AMBULATORY - MEDICINE [facility] [place] [place] [facility] Aug 14, 2024 09:00 AM AMBULATORY - MEDICINE [facility] C [facility] [place] [facility] Social History: Smoking Status (Most current) and Tobacco Use (All prior to encounter date) This section includes the most current, and the historical, smoking and tobacco- related health factors from the ID facility where the Encounter took place. Current Smoking Status This section includes the most current smoking, or tobacco-related health factor, from the ID facility where the Encounter took place. Date/Time Current Smoking Status Comment [facility] Jan 08, 2024 10:00 AM VA-TOBACCO QUIT 5 TO < 15 YRS ID [facility] [place] [facility] Tobacco Use History This section includes a history of the smoking, or tobacco-related health factors, that were collected on or before the date of the Encounter. The data comes from the ID facility where the Encounter took place. Date/Time Smoking Status/Tobac co Use Comment [facility] [[email or web address] Jan 08, 2024 10:00 AM VA-TOBACCO QUIT 5 TO < 15 YRS [facility] [place] [facility] May 03, 2022 01:00 PM VA-TOBACCO FORMER USER [facility] [place] [facility] May 03, 2022 01:00 PM VA-TOBACCO QUIT 15 YRS OR MORE [facility] [place] [facility] May 17, 2021 09:00 AM VA-TOBACCO FORMER USER [facility] [place] [facility] May 17, 2021 09:00 AM VA-TOBACCO QUIT 15 YRS OR MORE [facility] [place] [facility] May 28, 2020 03:00 PM VA-TOBACCO FORMER USER [facility] [place] [facility] May 28, 2020 03:00 PM VA-TOBACCO QUIT 5 TO < 15 YRS [facility] Oct 04, 2018 11:04 AM ID-TOBACCO FOR[facility] USER [facility] Oct 04, 2018 11:04 AM VA-TOBACCO QUIT 1 TO < 5 YRS [facility] Jan 24, 2018 01:52 PM CURRENT SMOKER [facility] Jan 24, 2018 01:52 PM QUIT TOBACCO USE IN PAST YEAR quit ciagarettes 3 months ago [facility] Encounter Notes: All associated encounter notes This section contains the clinical notes associated to the Encounter. Date/Time Encounter Note(s) Provider Source Mar 21, 2024 12:00 PM NONVA CONSULT: LOCAL TITLE: COMMUNITY CARE-CONSULT RESULT NOTE STANDARD TITLE: NONVA CONSULT DATE OF NOTE: MAR 21, 2024@12:00 ENTRY DATE: APR 10, 2024@11:06:08 AUTHOR: ALETHEA NICHOLSON EXP COSIGNER: URGENCY: STATUS: COMPLETED VistA Imaging - Scanned Document SCANNED DOCUMENT SIGNATURE NOT REQUIRED Electronically Filed: 04/10/2024 by: ALETHEA NICHOLSON COMPUTER LABORATORY TECHNICIAN ALETHEA NICHOLSON [facility]
--- OUTSIDE RECORDS SUMMARY | 2024-08-07 11:28 | XMS_ITS | Encounter Summary ---
Author Name [facility] Organization [facility] [place] Address [address] [place] [address] Care Team Providers Care Leather Colorer Name Role Phone RUBI CROWE Primary Care [...] O MEDEX BRONZ E Jun 06, 2007 [id number] NEVIN WILLIAMSON PATIENT ANTHEM BCBS OF CT MEDICARE SUPPLEMEN SALVATORE PSUED O MEDEX BRONZ E Jun 06, 2007 [id number] NEVIN WILLIAMSON PATIENT ANTHEM BCBS OF CT (BLUECARD) MEDICARE SUPPLEMEN [place] PSUED O MEDEX BRONZ E Jun 06, 2007 [id number] [phone] NEVIN WILLIAMSON PATIENT [place] SUPP[place] MEDEX BRONZ E Jun 06, 2007 [id number] NEVIN WILLIAMSON PATIENT [place] MEDEX BRONZ E Jun 06, 2007 [id number] NEVIN WILLIAMSON PATIENT MEDICARE (WNR) MEDICARE (M) PART B Jun 06, 2007 PART B [id number] [phone] ENVIN WILLIAMSON PATIENT MEDICARE (WNR) MEDICARE (M) PART B Jun 06, 2007 PART B [id number] [phone] NEVIN WILLIAMSON PATIENT MEDICARE (WNR) MEDICARE (M) PART A Jan 04, 2003 PART A [id number] NEVIN WILLIAMSON PATIENT MEDICARE (WNR) MEDICARE (M) PART A Jan 04, 2003 PART A [id number] NEVIN WILLIAMSON PATIENT MEDICARE (WNR) MEDICARE (M) PART B Jan 04, 2003 PART B [id number] NEVIN WILLIAMSON PATIENT MEDICARE (WNR) MEDICARE (M) PART A Jan 04, 2003 PART A [id number] NEVIN WILLIAMSON PATIENT Selected Encounter This section includes the information on record at SD for the Encounter. Date/Time Encounter Type Encounter Description Reason Provider Source December 11, 2023 10:00 AM OFFICE O/P EST MOD 30 MIN DERMATOLOGY ICD-10-CM L57.0 Actinic keratosis FRENCH ALFARO Pepito Encounter Template Text not used by SD Assessments - Encounter Diagnoses This section includes the primary and secondary diagnoses documented for the Encounter. Date/Time Primary/Secondary Diagnosis Diagnosis Name Provider Source December 11, 2023 10:32 AM PRIMARY Actinic keratosis MARTHA ALFARO [facility] [place] [facility] December 11, 2023 10:32 AM SECONDARY Inflamed seborrheic keratosis MARTHA ALFARO [facility] [place] [facility] December 11, 2023 10:32 AM SECONDARY Other melanin hyperpigmentation MARTHA ALFARO [facility] [place] [facility] December 11, 2023 10:32 AM SECONDARY Other seborrheic keratosis MARTHA ALFARO [facility] [place] [facility] Plan of Treatment: Future Appointments (+ 6 months) and Future Tests (+/- 45 days) The Plan of Treatment section includes future care activities for the patient [facility] This section includes future appointments and future orders which are active, pending or scheduled. Future Appointments This section includes appointments that were scheduled to occur 6 months from the date of the Encounter, up to a maximum of 20 appointments. The data comes from all SD treatment facilities. Appointment Date/Time Appointment Type Appointme nt Facility Name December 19, 2023 10:15 AM AMBULATORY - MEDICINE [facility] [place] [facility] December 19, 2023 11:00 AM AMBULATORY - MEDICINE [facility] [place] [facility] January 01, 2024 10:40 AM AMBULATORY - MEDICINE [facility] [place] [facility] Jan 08, 2024 10:00 AM AMBULATORY - MEDICINE [facility] [place] [facility] Jan 08, 2024 10:30 AM AMBULATORY - MEDICINE [facility] [place] [facility] Jan 21, 2024 10:30 AM AMBULATORY - NONE [facility] [place] [facility] Jan 31, 2024 02:15 PM AMBULATORY - NONE [facility] [place] [facility] Feb 11, 2024 08:30 AM AMBULATORY - MEDICINE [facility] [place] [facility] Mar 04, 2024 10:30 AM AMBULATORY - MEDICINE SD [facility] [place] [facility] Apr 17, 2024 10:45 AM AMBULATORY - MEDICINE [facility] [place] [facility] Apr 23, 2024 11:00 AM AMBULATORY - MEDICINE [facility] [place] [facility] Apr 24, 2024 01:45 PM AMBULATORY - MEDICINE SD C [facility] [place] [facility] May 13, 2024 11:00 AM AMBULATORY - MEDICINE [facility] [place] [facility] Social History: Smoking Status (Most current) [...] VA-TOBACCO QUIT 15 YRS OR MORE SD [facility] [place] [facility] Tobacco Use History This section includes a history of the smoking, or tobacco-related health factors, that were collected on or before the date of the Encounter. The data comes from the SD facility where the Encounter took place. Date/Time Smoking Status/Tobac co Use Comment Facility May 03, 2022 01:00 PM VA-TOBACCO QUIT 15 YRS OR MORE [facility] [place] [facility] May 17, 2021 09:00 AM VA-TOBACCO FORMER USER [facility] [place] [facility] May 17, 2021 09:00 AM VA-TOBACCO QUIT 15 YRS OR MORE [facility] [place] [facility] May 28, 2020 03:00 PM VA-TOBACCO FORMER USER [facility] [place] [facility] May 28, 2020 03:00 PM VA-TOBACCO QUIT 5 TO < 15 YRS [facility] [place] [facility] Oct 04, 2018 11:04 AM VA-TOBACCO FORMER USER [facility] [place] [facility] Oct 04, 2018 11:04 AM VA-TOBACCO QUIT 1 TO < 5 YRS [facility] [place] [facility] Jan 24, 2018 01:52 PM CURRENT SMOKER SD [facility] [place] [facility] Jan 24, 2018 01:52 PM QUIT TOBACCO USE IN PAST YEAR quit ciagarettes 3 months ago [facility] [place] [facility] Encounter Notes: All associated encounter notes This section contains the clinical notes associated to the Encounter. Date/Time Encounter Note(s) Provider Source December 11, 2023 10:08 AM DERMATOLOGY OUTPATIENT NOTE: LOCAL TITLE: DERMATOLOGY CLINIC NOTE STANDARD TITLE: DERMATOLOGY OUTPATIENT NOTE DATE OF NOTE: DECEMBER 11, 2023@10:08 ENTRY DATE: DECEMBER 11, 2023@10:08:40 AUTHOR: ODALYS ALFARO EXP COSIGNER: URGENCY: STATUS: COMPLETED DECEMBER 11, 2023 NEVIN WILLIAMSON Jan 85 PATIENT PHONE - Patient here for FOLLOW UP CHIEF COMPLAINT: AKs HPI: Reviewed records from last Dermatology visit: 12/04/23, returns to day for cryotherapy of AKs on scalp and ISKs on abd as it was not available at previous visit. denies any other new/changing/bleeding/non-hea ling lesions. REVIEW [...] MOUTH ONCE DAILY ACTIVE 9 Total Medications PHYSICAL EXAM: Mcleod Skintype II General-AxOx3, NAD, pleasant, breathing unlabored, speech clear Limited Cutaneous examination, as requested by the patient (waist up and only wanted to pull up his long sleeve sweatshirt to expose abd), including scalp, face, eyes, ears, neck, abdomen, hands, fingers Pertinent findings per below: -A few thin erythematous gritty papules and plaques to vertex scalp -Multiple scattered freeman, brown and farris waxy stuck on papules and plaques to face, scalp, hands, abd (lesion of concern), L breast (lesion of concern). Noted ridges and fissures on dermoscopy -Scattered uniformly pigmented light afrris and brown jagged macules in sun distributed areas. Diagnosis/Plan: #Actinic Keratosis: -Jackson educated on relationship to squamous cell carcinoma. -Treatment options discussed. -Liquid nitrogen cryotherapy performed as a destructive method. -Verbal consent given. -Liquid nitrogen (2 cycles x 5-8sec) x #4 lesions performed. -Side effects including but not limited to redness, crusting, swelling, blistering, hypopigmentation and scarring discussed. -Photoprotection discussed. #Seborrheic Keratoses, Irritated -The Jackson was educated regarding the benign nature, but given irritation/pain, destructive treatment requested. -Liquid nitrogen cryotherapy performed as a destructive method. -Liquid nitrogen (2 cycles x 5-8sec) x #2 lesions performed. -Side effects including but not limited to redness, crusting, swelling, blistering, scarring, and hypopigmentation discussed. -Wound care discussed in length. #Seborrheic Keratoses: -The Jackson was educated regarding the benign nature, but to return with any growth, change or symptoms in area. #Solar Lentigines -The was educated regarding the benign nature and relation to chronic sun exposure, but to return with any growth, change or symptoms in area. -Photoprotection discussed. RTC 1 yr, sooner PRN * educated to RTC venkat [...] of active outpatient prescriptions dispensed from this [place] (local) and dispensed from another [place] or [facility] facility (remote) as well as inpatient orders [...] Remote Allergy/ADR Data available for this patient [facility] [place] [facility] AUGMENTIN [facility] [place] [facility] BEE VENOM [facility] [place] [facility] HYDROCHLOROTHIAZIDE Med Recon NoGlossary (Tool #1) INCLUDED IN THIS LIST: Alphabetical list of active outpatient prescriptions dispensed from this SD (local) and dispensed from another [place] or [facility] facility (remote) as well as inpatient orders (local pending and active), local clinic medications, locally documented non-VA medications, and local prescriptions that have or been discontinued in the past 90 days. Non-VA Meds Last Documented On: Jun 19, 2022 NOTE The display of VA prescriptions dispensed from another SD or [facility] facility (remote) is limited to active outpatient prescription entries matched to National Drug File at the originating site and may not include some items such as investigational drugs, compounds, etc. NOT INCLUDED IN THIS LIST: Medications self-entered by the patient into personal health records (i.e. [email or web address]) are NOT included in this list. Non-VA medications documented outside this SD, remote inpatient orders (regardless of status) and [...] BY MOUTH ONCE DAILY FOR CHOLESTEROL Rx# [id number] Last Released: 10/11/23 Qty/Days Supply: Rx Expiration Date: 05/30/24 Refills Remainin OUTPT FLUTICASONE PROP 50MCG 120D NASAL INHL (Status = Active) INSTILL 1 SPRAY INTO EACH NOSTRIL AT BEDTIME FOR NASAL IRRITATION/INFLAMMATION Rx# [id number] Last Released: 07/12/23 Qty/Days Supply: 09/04 Rx Expiration Date: 07/04/24 Refills Remainin Indication: FOR NASAL IRRITATION/INFLAMMATION OUTPT ISOSORBIDE MONONITRATE 30MG SA TAB (Status = Active) TAKE ONE TABLET BY MOUTH ONCE DAILY TO PREVENT ANGINA Rx# [id number] Last Released: 11/28/23 Qty/Days Supply: Rx Expiration Date: 05/30/24 Refills Remainin OUTPT LATANOPROST 0.005% OPH SOLN (Status = Discontinued) INSTILL 1 DROP INTO EACH EYE AT BEDTIME TO REDUCE PRESSURE IN THE EYE Rx# [id number] Last Released: 07/04/23 Qty/Days Supply: Rx Expiration Date: 07/04/24 Refills Remainin OUTPT LATANOPROST 0.005% OPH SOLN (Status = Active) INSTILL 1 DROP INTO EACH EYE AT BEDTIME TO REDUCE PRESSURE IN THE EYE Rx# [id number] Last Released: 11/28/23 Qty/Days Supply: Rx Expiration Date: 11/07/24 Refills Remainin OUTPT LEVETIRACETAM 250MG TAB (Status = Active) TAKE ONE TABLET BY MOUTH AT BEDTIME Rx# [id number] Last Released: 11/28/23 Qty/Days Supply: Rx Expiration Date: 07/04/24 Refills Remainin OUTPT LISINOPRIL 5MG TAB (Status = Active) TAKE ONE TABLET BY MOUTH ONCE DAILY FOR HIGH BLOOD PRESSURE TO CONTROL BLOOD PRESSURE Rx# [id number] Last Released: 09/28/23 Qty/Days Supply: Rx Expiration Date: 07/04/24 Refills Remainin Indication: FOR HIGH BLOOD PRESSURE OUTPT METOPROLOL SUCCINATE 25MG SA TAB (Status = Active) TAKE ONE TABLET BY MOUTH ONCE DAILY FOR BLOOD PRESSURE/HEART Rx# [id number] Last Released: 10/11/23 Qty/Days Supply: Rx Expiration Date: 05/30/24 Refills Remainin OUTPT TAMSULOSIN HCL 0.4MG CAP (Status = Active) TAKE ONE CAPSULE BY MOUTH AT BEDTIME FOR ENLARGED PROSTATE Rx# [id number] Last Released: 10/22/23 Qty/Days Supply: Rx Expiration Date: 07/04/24 Refills Remainin Indication: FOR ENLARGED PROSTATE SUPPLIES /catalina/ ODALYS ALFARO DNP, WILDLIFE CONSERVATION PROFESSOR-C NURSE PRACTITIONER Signed: 12/11/2023 10:32 ODALYS ALF[facility]O [facility]
--- OUTSIDE RECORDS SUMMARY | 2024-08-07 11:28 | XMS_ITS ---
Author Name [facility] [place] [facility] [place] Address [address] [place] [address] Care Team Providers Care Behavioral Health Case Manager Name Role Phone RUBI CROWE Primary [...] O MEDEX BRONZ E Jun 06, 2007 [id number] [phone] NEVIN WILLIAMSON PATIENT ANTHEM BCBS OF [place] MEDICARE SUPPLEMEN [place] PSUED O MEDEX BRONZ E Jun 06, 2007 [id number] NEVIN WILLIAMSON PATIENT ANTHEM BCBS OF [place] (BLUECARD) MEDICARE SUPPLEMEN [place] PSUED O MEDEX BRONZ E Jun 06, 2007 [id number] NEVIN WILLIAMSON PATIENT [place] SUPPLE[place] MEDEX BRONZ E Jun 06, 2007 [id number] NEVIN WILLIAMSON [place] MEDEX BRONZ E Jun 06, 2007 [id number] NEVIN WILLIAMSON PATIENT MEDICARE (WNR) MEDICARE (M) PART B Jun 06, 2007 PART B [id number] [phone] NEVIN WILLIAMSON PATIENT MEDICARE (WNR) MEDICARE (M) PART B Jun 06, 2007 PART B [id number] NEVIN WILLIAMSON PATIENT MEDICARE (WNR) MEDICARE (M) PART A Jan 04, 2003 PART A [id number] NEVIN WILLIAMSON PATIENT MEDICARE (WNR) MEDICARE (M) PART A Jan 04, 2003 PART A [id number] NEVIN WILLIAMSON PATIENT MEDICARE (WNR) MEDICARE (M) PART B Jan 04, 2003 PART B [id number] NEVIN WILILAMSON PATIENT MEDICARE (WNR) MEDICARE (M) PART A Jan 04, 2003 PART A [id number] NEVIN WILLIAMSON PATIENT Selected Encounter This section includes the information on record at [place] for the Encounter. Date/Time Encounter Type Encounter Description Reason Provider Source Dec 04, 2023 10:00 AM OFFICE O/P EST MOD 30 MIN DERMATOLOGY ICD-10-CM L57.0 Actinic keratosis FRENCH ALFARO Pepito Encounter Template Text not used by [place] Assessments - Encounter Diagnoses This section includes the primary and secondary diagnoses documented for the Encounter. Date/Time Primary/Secondary Diagnosis Diagnosis Name Provider Source Dec 04, 2023 10:32 AM PRIMARY Actinic keratosis MARTHA ALFARO [facility] [place] [facility] Dec 04, 2023 10:32 AM SECONDARY Other [facility]in [facility]ig[facility] [place] [facility] Dec 04, 2023 10:32 AM SECONDARY Other seborrheic keratosis [facility] [place] [facility] Plan of Treatment: Future Appointments (+ 6 months) and Future Tests (+/- 45 days) The Plan of Treatment section includes future care activities for the patient from all [place] treatmentfacilities. This section includes future appointments and future orders which are active, pending or scheduled. Future Appointments This section includes appointments that were scheduled to occur 6 months from the date of the Encounter, up to a maximum of 20 appointments. The data comes from all [place] treatment facilities. Appointment Date/Time Appointment Type Appointme nt Facility Name December 11, 2023 10:00 AM AMBULATORY - MEDICINE [facility] [place] [facility] December 19, 2023 10:15 AM AMBULATORY - MEDICINE [facility] [place] [facility] December 19, 2023 11:00 AM AMBULATORY - MEDICINE [facility] [place] [facility] January 01, 2024 10:40 AM AMBULATORY - MEDICINE [facility] [place] [facility] Jan 08, 2024 10:00 AM AMBULATORY - MEDICINE [facility] [place] [facility] Jan 08, 2024 10:30 AM AMBULATORY - MEDICINE [facility] [place] [facility] Jan 21, 2024 10:30 AM AMBULATORY - NONE [facility] [place] [facility] Jan 31, 2024 02:15 PM AMBULATORY - NONE [facility] [place] [facility] Feb 11, 2024 08:30 AM AMBULATORY - MEDICINE [facility] [place] [facility] Mar 04, 2024 10:30 AM AMBULATORY - MEDICINE [facility] [place] [facility] Apr 17, 2024 10:45 AM AMBULATORY - MEDICINE [facility] [place] [facility] Apr 23, 2024 11:00 AM AMBULATORY - MEDICINE [facility] [place] [facility] Apr 24, 2024 01:45 PM AMBULATORY - MEDICINE [facility] [place] [facility] May 13, 2024 11:00 AM AMBULATORY - MEDICINE [facility] [place] [facility] Social History: Smoking Status (Most current) and Tobacco Use (All prior to encounter date) This section includes the most current, and the historical, smoking and tobacco- related health factors from the [place] facility where the Encounter took place. Current Smoking Status This section includes the most current smoking, or tobacco-related health factor, from the [place] facility where the Encounter took place. Date/Time Current Smoking Status Jessica huizar May 03, 2022 01:00 PM PA-TOBACCO QUIT 15 YRS OR MORE [facility] Tobacco Use History This section includes a history of the smoking, or tobacco-related health factors, that were collected on or before the date of the Encounter. The data comes from the [place] facility where the Encounter took place. Date/Time Smoking Status/Tobac co Use Comment Facility May 03, 2022 01:00 PM VA-TOBACCO QUIT 15 YRS OR MORE [facility] [place] [facility] May 17, 2021 09:00 AM VA-TOBACCO FORMER USER PA [facility] [facility] May 17, 2021 09:00 AM VA-TOBACCO QUIT 15 YRS OR MORE [facility] [facility] May 28, 2020 03:00 PM VA-TOBACCO FORMER USER [facility] [facility] May 28, 2020 03:00 PM VA-TOBACCO QUIT 5 TO < 15 YRS [facility] [facility] Oct 04, 2018 11:04 AM VA-TOBACCO FORMER USER [facility] [facility] Oct 04, 2018 11:04 AM VA-TOBACCO QUIT 1 TO < 5 YRS [facility] [facility] Jan 24, 2018 01:52 PM CURRENT SMOKER [facility] [place] [facility] Jan 24, 2018 01:52 PM QUIT TOBACCO USE IN PAST YEAR quit ciagarettes 3 months ago [facility] [place] [facility] Encounter Notes: All associated encounter notes This section contains the clinical notes associated to the Encounter. Date/Time Encounter Note(s) Provider Source Dec 04, 2023 10:09 AM DERMATOLOGY OUTPATIENT NOTE: LOCAL TITLE: DERMATOLOGY CLINIC NOTE STANDARD TITLE: DERMATOLOGY OUTPATIENT NOTE DATE OF NOTE: DEC 04, 2023@10:09 ENTRY DATE: DEC 04, 2023@10:09:50 AUTHOR: ODALYS ALFARO EXP COSIGNER: URGENCY: STATUS: COMPLETED DEC 04, 2023 NEVIN WILLIAMSON Jan 83 PATIENT PHONE - Patient here for FOLLOW UP CHIEF COMPLAINT: AKs, SKs HPI: Reviewed records from last Dermatology visit: 12/07/22; AKs s/p LN2 (bilateral temples and L dorsal hand). He reports improvement from last visit, still with a few gritty areas on vertex scalp and one on R abd he would like looked at - gets irritated with some of his pants. denies any other new/changing/bleeding/non-hea ling lesions. REVIEW [...] to face, scalp, hands, abd (lesion of concern). Noted ridges and fissures on dermoscopy -Scattered uniformly pigmented light farris and brown jagged macules in sun distributed areas. Diagnosis/Plan: #Actinic Keratosis: -Letts educated on relationship to squamous cell carcinoma. -Treatment options discussed. -Liquid nitrogen not available in clinic. declines topical therapies. He is agreebale to reschedule for LN2. -Photoprotection discussed. #Seborrheic Keratoses: -The was educated regarding the benign nature, but to return with any growth, change or symptoms in area. #Solar Lentigines -The was educated regarding the benign nature and relation to chronic sun exposure, but to return with any growth, change or symptoms in area. -Photoprotection discussed. RTC 1-2m, then annually * educated to RTC venkat if any [...] this VA (local) and dispensed from another [place] or DoD facility (remote) as well as [...] this VA (local) and dispensed from another VA or DoD facility (remote) as well as inpatient orders (local pending and active), local clinic medications, locally documented non-VA medications, and local prescriptions that have or been discontinued in the past 90 days. Non-VA Meds Last Documented On: Jun 19, 2022 NOTE The display of VA prescriptions dispensed from another PA or DoD facility (remote) is limited to active outpatient prescription entries matched to National Drug File at the originating site and may not include some items such as investigational drugs, compounds, etc. NOT INCLUDED IN THIS LIST: Medications self-entered by the patient into personal health records (i.e. [employer]) are NOT included in this list. Non-VA medications documented outside this VA, remote inpatient orders (regardless of status) and [...] BY MOUTH ONCE DAILY FOR CHOLESTEROL Rx# [id number] Last Released: 10/11/23 Qty/Days Supply: Rx Expiration Date: 05/30/24 Refills Remainin OUTPT FLUTICASONE PROP 50MCG 120D NASAL INHL (Status = Active) INSTILL 1 SPRAY INTO EACH NOSTRIL AT BEDTIME FOR NASAL IRRITATION/INFLAMMATION Rx# [id number] Last Released: 07/12/23 Qty/Days Supply: 09/04 Rx Expiration Date: 07/04/24 Refills Remainin Indication: FOR NASAL IRRITATION/INFLAMMATION OUTPT ISOSORBIDE MONONITRATE 30MG SA TAB (Status = Active) TAKE ONE TABLET BY MOUTH ONCE DAILY TO PREVENT ANGINA Rx# [id number] Last Released: 11/28/23 Qty/Days Supply: Rx Expiration Date: 05/30/24 Refills Remainin OUTPT LATANOPROST 0.005% OPH SOLN (Status = Discontinued) INSTILL 1 DROP INTO EACH EYE AT BEDTIME TO REDUCE PRESSURE IN THE EYE Rx# [id number] Last Released: 07/04/23 Qty/Days Supply: Rx Expiration Date: 07/04/24 Refills Remainin OUTPT LATANOPROST 0.005% OPH SOLN (Status = Active) INSTILL 1 DROP INTO EACH EYE AT BEDTIME TO REDUCE PRESSURE IN THE EYE Rx# [id number] Last Released: 11/28/23 Qty/Days Supply: Rx Expiration Date: 11/07/24 Refills Remainin OUTPT LEVETIRACETAM 250MG TAB (Status = Active) TAKE ONE TABLET BY MOUTH AT BEDTIME Rx# [id number] Last Released: 11/28/23 Qty/Days Supply: Rx Expiration Date: 07/04/24 Refills Remainin OUTPT LISINOPRIL 5MG TAB (Status = Active) TAKE ONE TABLET BY MOUTH ONCE DAILY FOR HIGH BLOOD PRESSURE TO CONTROL BLOOD PRESSURE Rx# [id number] Last Released: 09/28/23 Qty/Days Supply: Rx Expiration Date: 07/04/24 Refills Remainin Indication: FOR HIGH BLOOD PRESSURE OUTPT METOPROLOL SUCCINATE 25MG SA TAB (Status = Active) TAKE ONE TABLET BY MOUTH ONCE DAILY FOR BLOOD PRESSURE/HEART Rx# [id number] Last Released: 10/11/23 Qty/Days Supply: Rx Expiration Date: 05/30/24 Refills Remainin OUTPT TAMSULOSIN HCL 0.4MG CAP (Status = Active) TAKE ONE CAPSULE BY MOUTH AT BEDTIME FOR ENLARGED PROSTATE Rx# [id number] Last Released: 10/22/23 Qty/Days Supply: Rx Expiration Date: 07/04/24 Refills Remainin Indication: FOR ENLARGED PROSTATE SUPPLIES /catalina/ ODALYS ALFARO DNP, [employer] MEASURER-C NURSE PRACTITIONER Signed: 12/04/2023 10:32 [facility]
--- OUTSIDE RECORDS SUMMARY | 2024-08-07 11:28 | XMS_ITS ---
Author Name [facility] [place] Organization [facility] [place] Address [address] [place] [id number] Care Team Providers Care Educational Administrator Name Role Phone RUBI CROWE Primary Care [...] O MEDEX BRONZ E Jun 06, 2009 [id number] [phone] NEVIN WILLIAMSON PATIENT ANTHEM BCBS OF [place] MEDICARE SUPPLEMEN [place] PSUED O MEDEX BRONZ E Jun 06, 2007 [id number] [phone] NEVIN WILLIAMSON PATIENT ANTHEM BCBS OF [place] (BLUECARD) MEDICARE SUPPLEMEN [place] PSUED O MEDEX BRONZ E Jun 06, 2007 [id number] NEVIN WILLIAMSON PATIENT [place] MED[place] SUPP[place]MEN [place] MEDEX BRONZ E Jun 06, 2007 [id number] NEVIN WILLIAMSON [place] MEDEX BRONZ E Jun 06, 2007 [id number] NEVIN WILLIAMSON PATIENT MEDICARE (WNR) MEDICARE (M) PART B Jun 06, 2007 PART B [id number] [phone] NEVIN WILLIAMSON PATIENT MEDICARE (WNR) MEDICARE (M) PART B Jun 06, 2007 PART B [id number] NEVIN WILLIAMSON PATIENT MEDICARE (WNR) MEDICARE (M) PART A Jan 04, 2003 PART A [id number] NEVIN WILLIAMSON PATIENT MEDICARE (WNR) MEDICARE (M) PART A Jan 04, 2003 PART A [id number] NEVIN WILLIAMSON PATIENT MEDICARE (WNR) MEDICARE (M) PART B Jan 04, 2003 PART B [id number] NEVIN WILLIAMSON PATIENT MEDICARE (WNR) MEDICARE (M) PART A Jan 04, 2003 PART A [id number] NEVIN WILLIAMSON PATIENT Selected Encounter This section includes the information on record at [place] for the Encounter. Date/Time Encounter Type Encounter Description Reason Provider Source December 19, 2023 10:15 AM OFF/OP EST DECEMBER X REQ PHY/QHP PRIMARY CARE/MEDICINE ICD-10-CM Z04.9 Encounter for examination and observation for unsp reason MICAH KING SA IHE Encounter Template Text not used by [place] Assessments - Encounter Diagnoses This section includes the primary and secondary diagnoses documented for the Encounter. Date/Time Primary/Secondary Diagnosis Diagnosis Name Provider Source December 19, 2023 11:07 AM PRIMARY Encounter for examination and observation for unsp reason MICAH KING [facility] [place] [facility] Plan of Treatment: Future Appointments (+ 6 months) and Future Tests (+/- 45 days) The Plan of Treatment section includes future care activities for the patient from all [place] treatmentfacilities. This section includes future appointments and future orders which are active, pending or scheduled. Future Appointments This section includes appointments that were scheduled to occur 6 months from the date of the Encounter, up to a maximum of 20 appointments. The data comes from all [place] treatment facilities. Appointment Date/Time Appointment Type Appointme nt Facility Name January 01, 2024 10:40 AM AMBULATORY - MEDICINE [facility] [facility] Jan 08, 2024 10:00 AM AMBULATORY - MEDICINE [facility] [place] [facility] Jan 08, 2024 10:30 AM AMBULATORY - MEDICINE [facility] [place] [facility] Jan 21, 2024 10:30 AM AMBULATORY - NONE [facility] [place] [facility] Jan 31, 2024 02:15 PM AMBULATORY - NONE [facility] [place] [facility] Feb 11, 2024 08:30 AM AMBULATORY - MEDICINE [facility] [place] [facility] Mar 04, 2024 10:30 AM AMBULATORY - MEDICINE [facility] [facility] Apr 17, 2024 10:45 AM AMBULATORY - MEDICINE [facility] [place] [facility] Apr 23, 2024 11:00 AM AMBULATORY - MEDICINE [facility] [place] [facility] Apr 24, 2024 01:45 PM AMBULATORY - MEDICINE [facility] [place] [facility] May 13, 2024 11:00 AM AMBULATORY - MEDICINE [facility] [place] [facility] Vital Signs: All taken on the encounter date This section contains inpatient and outpatient Vital Signs collected on the date of the Encounter. Date/Time Temperature Pulse Blood Pressure Respiratory Rate SP02 Pain Height Weight Body Mass Index Source December 19, 2023 10:35 AM 98.1 72 139/78 16 94 4 [facility] Social History: Smoking Status (Most current) and Tobacco Use (All prior to encounter date) This section includes the most current, and the historical, smoking and tobacco- related health factors from the [place] facility where the Encounter took place. Current Smoking Status This section includes the most current smoking, or tobacco-related health factor, from the [place] facility where the Encounter took place. Date/Time Current Smoking Status Comment Yessica huizar May 03, 2022 01:00 PM VA-TOBACCO QUIT 15 YRS OR MORE [facility] Tobacco Use History This section includes a history of the smoking, or tobacco-related health factors, that were collected on or before the date of the Encounter. The data comes from the [place] facility where the Encounter took place. Date/Time Smoking Status/Tobac co Use Comment Facility May 03, 2022 01:00 PM VA-TOBACCO QUIT 15 YRS OR MORE [facility] [place] [facility] May 17, 2021 09:00 AM VA-TOBACCO FORMER USER [facility] [facility] May 17, 2021 09:00 AM VA-TOBACCO QUIT 15 YRS OR MORE [facility] [facility] May 28, 2020 03:00 PM VA-TOBACCO FORMER USER [facility] [facility] May 28, 2020 03:00 PM VA-TOBACCO QUIT 5 TO < 15 YRS [facility] [place] [facility] Oct 04, 2018 11:04 AM VA-TOBACCO FORMER USER [facility] [facility] Oct 04, 2018 11:04 AM VA-TOBACCO QUIT 1 TO < 5 YRS [facility] [facility] Jan 24, 2018 01:52 PM CURRENT SMOKER [facility] [place] [facility] Jan 24, 2018 01:52 PM QUIT TOBACCO USE IN PAST YEAR quit ciagarettes 3 months ago [facility] [place] [facility] Encounter Notes: All associated encounter notes This section contains the clinical notes associated to the Encounter. Date/Time Encounter Note(s) Provider Source December 19, 2023 10:54 AM PRIMARY CARE NOTE: LOCAL TITLE: WALK-IN NOTE PRIMARY CARE (T) STANDARD TITLE: PRIMARY CARE NOTE DATE OF NOTE: DECEMBER 19, 2023@10:54 ENTRY DATE: DECEMBER 19, 2023@10:54:50 AUTHOR: AGUS KING EXP COSIGNER: URGENCY: STATUS: COMPLETED Patient identity was verified using two identifiers, per [place] Policy: Full Name, Date of NEVIN WILLIAMSON is a 83 year old who presents to the clinic for Bump Visit Type: Clinic Unscheduled Primary Care Clinic Triage: S: report painful area back of neck/scalp going for awhile maybe few days. Denies fever or chills. Reports painful to sleep on. Reports pain 5/10 no home treament. [place] is concerned it is infected and request evaulation Skin: Other skin problems Lump under the skin scalp area O: Vital Signs: Temperature: 98.1 F [36.7 C] (12/19/2023 10:35) Pulse: 72 (12/19/2023 10:35) Respiration: 16 (12/19/2023 10:35) Blood Pressure: 139/78 (12/19/2023 10:35) 94% (12/19/2023 10:35) Pain: 4 (12/19/2023 10:35) Height: 68 in [172.7 cm] (06/20/2023 09:55) Weight: 178 lb [80.74 kg] (07/04/2023 10:48) BMI: 27.1 Current Home Treatment: none Allergies: AUGMENTIN, BEE VENOM, HYDROCHLOROTHIAZIDE Medications: Active Outpatient Medications (including Supplies): Active Outpatient [...] MOUTH AT ACTIVE BEDTIME FOR ENLARGED PROSTATE Pending Outpatient Medications Status 1) DICLOFENAC NA 1% TOP GEL APPLY 2 GRAMS TOPICALLY FOUR PENDING TIMES A DAY FOR OSTEOARTHRITIS - USE DOSING CARD PROVIDED IN BOX Active Non-VA Medications Status 1) Non-VA ASPIRIN 81MG EC TAB 81MG BY MOUTH ONCE DAILY ACTIVE 10 Total Medications Non-VA Med: AMLODIPINE BESYLATE TAB Status: Discontinued (APR 02, 2018) CPRS Order #: [id number] Documented By: MARIO ALBERTO MASTERSON NP Documented Date: FEB 01, 2018@11:55:47 Clinic: [address] [place] [address]/NO/PACT EIGHT Start Date: Dispense Drug: AMLODIPINE BESYLATE 5MG TAB Dosage: 5MG Med Route: BY MOUTH Schedule: ONCE DAILY Statement/Explanation/Comment : Medication prescribed by Non-VA provider. no records - pt hand written note 02/01/18 - visit new pt Non-VA Med: PRAVASTATIN TAB Status: Discontinued (APR 02, 2018) CPRS Order #: [id number] Documented By: MARIO ALBERTO MASTERSON NP Documented Date: FEB 01, 2018@11:55:47 Clinic: [address] [place] [address]/NO/PACT EIGHT Start Date: Dispense Drug: PRAVASTATIN NA 20MG TAB Dosage: 20MG Med Route: BY MOUTH Schedule: ONCE DAILY Statement/Explanation/Comment : Medication prescribed by Non-VA provider. no records - pt hand written note 02/01/18 - visit new pt Non-VA Med: HYDROCHLOROTHIAZIDE TAB Status: Discontinued (APR 02, 2018) CPRS Order #: [id number] Documented By: MARIO ALBERTO MASTERSON NP Documented Date: FEB 01, 2018@11:55:47 Clinic: [address] [place] [address]/NO/PACT EIGHT Start Date: Dispense Drug: HYDROCHLOROTHIAZIDE 25MG TAB Dosage: 25MG Med Route: BY MOUTH Schedule: ONCE DAILY Statement/Explanation/Comment : Medication prescribed by Non-VA provider. no records - pt hand written note 02/01/18 - visit new pt Non-VA Med: GABAPENTIN CAP,ORAL Status: Discontinued (JUL 04, 2019) CPRS Order #: [id number] Documented By: MARIO ALBERTO MASTERSON NP Documented Date: FEB 01, 2018@11:55:47 Clinic: [id number]/NO/PACT EIGHT Start Date: Dispense Drug: GABAPENTIN 100MG CAP Dosage: 100MG Med Route: BY MOUTH Schedule: THREE TIMES DAILY NEEDED Statement/Explanation/Comment : Medication prescribed by Non-VA provider. no records - pt hand written note 02/01/18 - visit new pt Non-VA Med: PRAVASTATIN TAB Status: Discontinued (DECEMBER 09, 2019) CPRS Order #: [id number] Documented By: MARIO ALBERTO MASTERSON NP Documented Date: APR 02, 2018@11:30:42 Clinic: [facility]/NO/PACT EIGHT Start Date: Dispense Drug: PRAVASTATIN NA 20MG TAB Dosage: 20MG Med Route: BY MOUTH Schedule: ONCE DAILY Statement/Explanation/Comment : Medication prescribed by Non-VA provider. pill bottle - dr ring 03/16/18 Non-VA Med: AMLODIPINE BESYLATE TAB Status: Discontinued (AUG 28, 2019) CPRS Order #: [id number] Documented By: MARIO ALBERTO MASTERSON NP Documented Date: APR 02, 2018@11:30:42 Clinic: [facility]/NO/PACT EIGHT Start Date: Dispense Drug: AMLODIPINE BESYLATE 5MG TAB Dosage: 5MG Med Route: BY MOUTH Schedule: ONCE DAILY Statement/Explanation/Comment : Medication prescribed by Non-VA provider. Per pill bottle - dr ring 03/16/18 Non-VA Med: HYDROCHLOROTHIAZIDE TAB Status: Discontinued (DECEMBER 09, 2019) CPRS Order #: [id number] Documented By: MARIO ALBERTO MASTERSON NP Documented Date: APR 02, 2018@11:30:42 Clinic: [facility]/NO/PACT EIGHT Start Date: Dispense Drug: HYDROCHLOROTHIAZIDE 25MG TAB Dosage: 25MG Med Route: BY MOUTH Schedule: ONCE DAILY Statement/Explanation/Comment : Medication prescribed by Non-VA provider. per pill bottle dr ring 11/08/17 Non-VA Med: LIDOCAINE 2% JELLY Status: Discontinued (AUG 28, 2019) CPRS Order #: [id number] Documented By: MARIO ALBERTO MASTERSON NP Documented Date: APR 09, 2019@22:33:01 Clinic: [facility]/NO/PACT EIGHT Start Date: Dispense Drug: Dosage: Med Route: TOPICALLY Schedule: Statement/Explanation/Comment : Medication prescribed by Non-VA provider. per pt report s/p [facility] urgent care visit Non-VA Med: FLUTICASONE NASAL SOLN,NASAL Status: Discontinued (AUG 28, 2019) CPRS Order #: [id number] Documented By: MARIO ALBERTO MASTERSON NP Documented Date: JUL 04, 2019@10:29:07 Clinic: [facility]/NO/PACT EIGHT Start Date: Dispense Drug: FLUTICASONE PROP 50MCG 120D NASAL INHLDosage: 1 SPRAY Med Route: INTO EACH NOSTRIL Schedule: Statement/Explanation/Comment : per pt report - only Non-VA Med: ASPIRIN TAB,EC Status: Active CPRS Order #: [id number] Documented By: JESUS KNIGHT MD Documented Date: JUN 19, 2022@09:02:13 Clinic: [facility]/ENDOCRINE Start Date: Dispense Drug: ASPIRIN 81MG EC TAB Dosage: 81MG Med Route: BY MOUTH Schedule: ONCE DAILY Statement/Explanation/Comment : Since you last saw your [facility] Provider, did you have any of the following? None A: cyst located scalp neck area. Intact, No redness or drainage noted. Recently seen in by dermatology seen 12/11/23 and 12/04/23. [place] concern about being infected request assistance setting up dermatology appointment . P: Clinic Appointment Comment: Request assessment by sick call provider Appointment Date/Time: December Patient Education: Instruction recommendation by PA- warm compress and prescription. /catalina/ AGUS KING REGISTERED NURSE Signed: 12/19/2023 11:07 [facility]US KING [facility]
--- OUTSIDE RECORDS SUMMARY | 2024-08-07 11:28 | XMS_ITS | Encounter Summary ---
Author Name [facility] [place] Organization [place] Address [address] [place] [address] Care Team Providers Care Line Inspector Name Role Phone RUBI CROWE Primary Care [...] O MEDEX BRONZ E Jun 06, 2007 [id number] NEVIN WILLIAMSON PATIENT ANTHEM BCBS OF [place] MEDICARE SUPPLEMEN [place] PSUED O MEDEX BRONZ E Jun 06, 2007 [id number] [phone] NEVIN WILLIAMSON PATIENT ANTHEM BCBS OF [place] (BLUECARD) MEDICARE SUPPLEMEN [place] PSUED O MEDEX BRONZ E Jun 06, 2007 [id number] NEVIN WILLIAMSON PATIENT [place]BS [place] MED[place] SUPPLEMEN [place] MEDEX BRONZ E Jun 06, 2007 [id number] NEVIN WILLIAMSON PATIENT [place]PP[place] MEDEX BRONZ E Jun 06, 2007 [id number] [phone] NEVIN WILLIAMSON PATIENT MEDICARE (WNR) MEDICARE (M) PART B Jun 06, 2007 PART B [id number] [phone] NEVIN WILLIAMSON PATIENT MEDICARE (WNR) MEDICARE (M) PART B Jun 06, 2007 PART B [id number] NEVIN WILLIAMSON PATIENT MEDICARE (WNR) MEDICARE (M) PART A Jan 04, 2003 PART A [id number] [phone] NEVIN WILLIAMSON PATIENT MEDICARE (WNR) MEDICARE (M) PART A Jan 04, 2003 PART A [id number] NEVIN WILLIAMSON PATIENT MEDICARE (WNR) MEDICARE (M) PART B Jan 04, 2003 PART B [id number] NEVIN WILLIAMSON PATIENT MEDICARE (WNR) MEDICARE (M) PART A Jan 04, 2003 PART A [id number] NEVIN WILLIAMSON PATIENT Selected Encounter This section includes the information on record at [place] for the Encounter. Date/Time Encounter Type Encounter Description Reason Pro vider Source Mar 25, 2024 12:00 AM Outpatient Encounter EVENT (HISTORICAL) IHE Encounter Template Text not used by [...] 17, 2024 10:45 AM AMBULATORY - MEDICINE [place] [facility] [facility] Apr 23, 2024 11:00 AM AMBULATORY - MEDICINE [place] [facility] [facility] Apr 24, 2024 01:45 PM AMBULATORY - MEDICINE [place] [facility] [facility] May 13, 2024 11:00 AM AMBULATORY - MEDICINE [facility] [place] [facility] Jun 23, 2024 10:30 AM AMBULATORY - NONE [place] [facility] [place] [facility] Jun 23, 2024 11:30 AM AMBULATORY - MEDICINE [place] [facility] [facility] Jun 30, 2024 10:00 AM AMBULATORY - MEDICINE [place] [facility] [place] [facility] Aug 04, 2024 09:30 AM AMBULATORY - MEDICINE [place] [facility] [place] [facility] Aug 12, 2024 11:00 AM AMBULATORY - MEDICINE [place] [facility] [place] [facility] Aug 14, 2024 09:00 AM AMBULATORY - MEDICINE [place] [facility] [place] [facility] Social History: Smoking Status (Most [...] took place. Date/Time Current Smoking Status Comment [facility] Jan 08, 2024 10:00 AM VA-TOBACCO FORMER USER [place] [facility] [place] [facility] Tobacco Use History This section includes a history of the smoking, or tobacco-related health factors, that were collected on or before the date of the Encounter. The data comes from the [place] facility where the Encounter took place. Date/Time Smoking Status/Tobac co Use Comment [facility] Jan 08, 2024 10:00 AM VA-TOBACCO QUIT 5 TO < 15 YRS [place] [facility] [place] [facility] May 03, 2022 01:00 PM VA-TOBACCO FORMER USER [place] [facility] [place] [facility] May 03, 2022 01:00 PM VA-TOBACCO QUIT 15 YRS OR MORE [place] [facility] [place] [facility] May 17, 2021 09:00 AM VA-TOBACCO FORMER USER [place] [facility] [place] [facility] May 17, 2021 09:00 AM VA-TOBACCO QUIT 15 YRS OR MORE [place] [facility] [place] [facility] May 28, 2020 03:00 PM VA-TOBACCO FORMER USER [place] [facility] [place] [facility] May 28, 2020 03:00 PM VA-TOBACCO QUIT 5 TO < 15 YRS [place] [facility] [place] [facility] Oct 04, 2018 11:04 AM [facility] Oct 04, 2018 11:04 AM VA-TOBACCO QUIT 1 TO < 5 YRS [place] [facility] [place] [facility] Jan 24, 2018 01:52 PM [facility] Jan 24, 2018 01:52 PM QUIT TOBACCO USE IN PAST YEAR quit ciagarettes 3 months ago [facility] Encounter Notes: All associated encounter notes This section contains the clinical notes associated to the Encounter. Date/Time Encounter Note(s) Provider Source Mar 25, 2024 12:00 AM NONVA CONSULT: LOCAL TITLE: COMMUNITY CARE-CONSULT RESULT NOTE STANDARD TITLE: NONVA CONSULT DATE OF NOTE: MAR 25, 2024 ENTRY DATE: APR 15, 2024@10:41:42 AUTHOR: PERFECTO LIND EXP COSIGNER: URGENCY: STATUS: COMPLETED VistA Imaging - Scanned Document SCANNED DOCUMENT SIGNATURE NOT REQUIRED Electronically Filed: 04/15/2024 by: [facility]ECTO BREWSTER [facility]
--- OUTSIDE RECORDS SUMMARY | 2024-08-07 11:28 | XMS_ITS ---
Author Name [facility] [place] [facility] [place] Organization [facility] [place] Address [address] [place] [address] Care Team Providers Care Cps Team Lead Name Role Phone RUBI CROWE Primary Care [...] O MEDEX BRONZ E Jun 06, 2007 [id number] NEVIN WILLIAMSON PATIENT ANTHEM BCBS OF [place] MEDICARE SUPPLEMEN [place] PSUED O MEDEX BRONZ E Jun 06, 2007 [id number] [phone] NEVIN WILLIAMSON PATIENT ANTHEM BCBS OF [place] (BLUECARD) MEDICARE SUPPLEMEN [place] PSUED O MEDEX BRONZ E Jun 06, 2007 [id number] NEVIN WILLIAMSON PATIENT [place] MEDEX BRONZ E Jun 06, 2007 [id number] [phone] NEVIN WILLIAMSON PATIENT [place] MEDEX BRONZ E Jun 06, 2007 [id number] [phone] NEVIN WILLIAMSON PATIENT MEDICARE (WNR) MEDICARE (M) PART B Jun 06, 2007 PART B [id number] [phone] NEVIN WILLIAMSON PATIENT MEDICARE (WNR) MEDICARE (M) PART B Jun 06, 2007 PART B [id number] [phone] NEVIN WILLIAMSON PATIENT MEDICARE (WNR) MEDICARE (M) PART A Jan 04, 2003 PART A [id number] NEVIN WILLIAMSON PATIENT MEDICARE (WNR) MEDICARE (M) PART A Jan 04, 2003 PART A [id number] [phone] NEVIN WILLIAMSON PATIENT MEDICARE (WNR) MEDICARE (M) PART B Jan 04, 2003 PART B [id number] NEVIN WILLIAMSON PATIENT MEDICARE (WNR) MEDICARE (M) PART A Jan 04, 2003 PART A [id number] [phone] NEVIN WILLIAMSON PATIENT Selected Encounter This section includes the information on record at [place] for the Encounter. Date/Time Encounter Type Encounter Description Reason Provider Source December 19, 2023 11:00 AM OFFICE O/P EST LOW 20 MIN PRIMARY CARE/MEDICINE ICD-10-CM M54.2 RAMAKRISHNA Solo [facility] Encounter Template Text not used by [place] Assessments - Encounter Diagnoses This section includes the primary and secondary diagnoses documented for the Encounter. Date/Time Primary/Secondary Diagnosis Diagnosis Name Provider Source December 19, 2023 12:54 PM PRIMARY CervicalRAMAKRISHNA Dick [place] [facility] [place] [facility] Plan of Treatment: Future Appointments (+ 6 months) and Future Tests (+/- 45 days) The Plan of Treatment section includes future care activities for the patient from all [place] treatmentfacilities. This section includes future appointments and future orders which are active, pending or scheduled. Future Appointments This section includes appointments that were scheduled to occur 6 months from the date of the Encounter, up to a maximum of 20 appointments. The data comes from all [place] treatment facilities. Appointment Date/Time Appointment Type Appointme nt Facility Name January 01, 2024 10:40 AM AMBULATORY - MEDICINE [facility] [place] [facility] Jan 08, 2024 10:00 AM AMBULATORY - MEDICINE [place] [facility] [place] [facility] Jan 08, 2024 10:30 AM AMBULATORY - MEDICINE [place] [facility] [place] [facility] Jan 21, 2024 10:30 AM AMBULATORY - NONE [place] [facility] [place] [facility] Jan 31, 2024 02:15 PM AMBULATORY - NONE [place] [facility] [place] [facility] Feb 11, 2024 08:30 AM AMBULATORY - MEDICINE [place] [facility] [place] [facility] Mar 04, 2024 10:30 AM AMBULATORY - MEDICINE [place] [facility] [place] [facility] Apr 17, 2024 10:45 AM AMBULATORY - MEDICINE [place] [facility] [place] [facility] Apr 23, 2024 11:00 AM AMBULATORY - MEDICINE [place] [facility] [place] [facility] Apr 24, 2024 01:45 PM AMBULATORY - MEDICINE [place] [facility] [place] [facility] May 13, 2024 11:00 AM AMBULATORY - MEDICINE [place] [facility] [place] [facility] Vital Signs: All taken on the encounter date This section contains inpatient and outpatient Vital Signs collected on the date of the Encounter. Date/Time Temperature Pulse Blood Pressure Respiratory Rate SP02 Pain Height Weight Body Mass Index Source December 19, 2023 10:35 AM 98.1 72 139/78 16 94 4 DC CNTR [facility] Social History: Smoking Status (Most current) and Tobacco Use (All prior to encounter date) This section includes the most current, and the historical, smoking and tobacco- related health factors from the [place] facility where the Encounter took place. Current Smoking Status This section includes the most current smoking, or tobacco-related health factor, from the [place] facility where the Encounter took place. Date/Time Current Smoking Status Comment [facility] May 03, 2022 01:00 PM VA-TOBACCO FORMER USER [place] [facility] [place] [facility] Tobacco Use History This section includes a history of the smoking, or tobacco-related health factors, that were collected on or before the date of the Encounter. The data comes from the [place] facility where the Encounter took place. Date/Time Smoking Status/Tobac co Use Comment Facility May 03, 2022 01:00 PM VA-TOBACCO QUIT 15 YRS OR MORE [place] [facility] [place] [facility] May 17, 2021 09:00 AM VA-TOBACCO FORMER USER VA [facility] [place] [facility] May 17, 2021 09:00 AM VA-TOBACCO QUIT 15 YRS OR MORE VA [facility] [place] [facility] May 28, 2020 03:00 PM VA-TOBACCO FORMER USER VA [facility] [place] [facility] May 28, 2020 03:00 PM VA-TOBACCO QUIT 5 TO < 15 YRS VA [facility] [place] [facility] Oct 04, 2018 11:04 AM VA-TOBACCO FORMER USER [place] [facility] [place] [facility] Oct 04, 2018 11:04 AM VA-TOBACCO QUIT 1 TO < 5 YRS VA [facility] [place] [facility] Jan 24, 2018 01:52 PM CURRENT SMOKER DC [facility] [place] [facility] Jan 24, 2018 01:52 PM QUIT TOBACCO USE IN PAST YEAR quit ciagarettes 3 months ago [place] [facility] [place] [facility] Encounter Notes: All associated encounter notes This section contains the clinical notes associated to the Encounter. Date/Time Encounter Note(s) Provider Source December 19, 2023 10:53 AM PHYSICIAN HOOP [employer]CH [employer] COILER OPERATOR HELPER NOTE: LOCAL TITLE: SANDY NOTE STANDARD TITLE: PHYSICIAN [employer]ILER OPERATOR HELPER NOTE DATE OF NOTE: DECEMBER 19, 2023@10:53 ENTRY DATE: DECEMBER 19, 2023@10:53:39 AUTHOR: RAMAKRISHNA GARIBAY EXP COSIGNER: URGENCY: STATUS: COMPLETED SICK CALL VISIT CC: Lump HPI: 83-year-old male with below noted past medical history presents today with concerns of a possible cyst/abscess present on the posterior aspect of his neck. States on the right side of his neck he has had a lump that has been tender for the past 3 weeks. He has been seen by dermatology but he did not have this issue addressed at that visit. He states that it was not that bothersome. Denies any fevers or redness. There is been no discharge. REVIEW OF SYSTEMS: A 12 point review of systems is negative except as noted in the HPI. Active Medical Problems: Active Problem Multinodular goiter E04.2 06/20/2023 JESUS KNIGHT History of carotid endarterectomy Z 07/22/2022 NATHANAEL BARBER Cerebrovascular accident I63.9 05/03/2022 NATHANAEL BARBER Coronary atherosclerosis I25.10 05/03/2022 NATHANAEL BARBER Strain of infraspinatus muscle M25. 04/09/2019 PETROFF,MARIO ALBERTO Limitation of motion M25.511 04/09/2019 PETROFF,MARIO ALBERTO Decreased vitamin D E55.9 04/09/2019 PETROFF,MARIO ALBERTO H/O: glaucoma H40.89 10/04/2018 PETROFF,ODILIAE Immunization status R69. 10/04/2018 PETROFF,ODILIAE Adult screening status R69. 10/04/2018 PETROFF,MARIO ALBERTO Hyperlipidemia E78.5 02/01/2018 PETROFF,ODILIAE Elderly fall R26.9 02/01/2018 PETROFF,MARIO ALBERTO Patient requires hospitalization R6 10/04/2018 MARIO ALBERTO MASTERSON Under care of multiple providers R6 04/02/2018 MARIO ALBERTO MASTERSON COPD - Chronic Obstructive Pulmonar 10/04/2018 LILIANA POTTS HTN - Hypertension ([facility] [id number]) I 12/13/2017 LILIANA POTTS Spinal Stenosis of Lumbar Region (S 12/13/2017 LILIANA POTTS Solitary Nodule of Lung (SCT [id number] 12/13/2017 LILIANA POTTS Asbestos-induced pleural plaque R69 12/13/2017 LILIANA POTTS Meds: Active Outpatient Medications (including Supplies): ATORVASTATIN CALCIUM 80MG TAB TAKE ONE TABLET BY MOUTH ACTIVE ONCE DAILY FOR CHOLESTEROL DICLOFENAC NA 1% TOP GEL APPLY 2 GRAMS TOPICALLY FOUR PENDING TIMES A DAY FOR OSTEOARTHRITIS - USE DOSING CARD PROVIDED IN BOX FLUTICASONE PROP 50MCG 120D NASAL INHL INSTILL 1 SPRAY ACTIVE INTO EACH NOSTRIL AT BEDTIME FOR NASAL IRRITATION/INFLAMMATION ISOSORBIDE MONONITRATE 30MG SA TAB TAKE ONE TABLET BY ACTIVE MOUTH ONCE DAILY TO PREVENT ANGINA LATANOPROST 0.005% OPH SOLN INSTILL 1 DROP INTO EACH EYE ACTIVE AT BEDTIME TO REDUCE PRESSURE IN THE EYE LEVETIRACETAM 250MG TAB TAKE ONE TABLET BY MOUTH AT ACTIVE BEDTIME LISINOPRIL 5MG TAB TAKE ONE TABLET BY MOUTH ONCE DAILY FOR ACTIVE HIGH BLOOD PRESSURE TO CONTROL BLOOD PRESSURE METOPROLOL SUCCINATE 25MG SA TAB TAKE ONE TABLET BY MOUTH ACTIVE ONCE DAILY FOR BLOOD PRESSURE/HEART TAMSULOSIN HCL 0.4MG CAP TAKE ONE CAPSULE BY MOUTH AT ACTIVE BEDTIME FOR ENLARGED PROSTATE Non-VA ASPIRIN 81MG EC TAB 81MG BY MOUTH ONCE DAILY ACTIVE Allergies: AUGMENTIN, BEE VENOM, HYDROCHLOROTHIAZIDE Date Vital Measurement Qualifiers 12/19/2023 10:35 Temp F (C) 98.1 (36.7) Pulse 72 Respir 16 BP 139/78 Pain 4 POx (L/Min)(%) 94 At Rest FOCUSED EXAMINATION GEN: Well-developed elderly male no acute distress INT: There is mild fat pad presentation without lipoma development noted on the right posterior aspect of the neck inferiorly and is nontender to palpation. There is no erythema, edema or induration. Vascular: Well perfused MDM: No clinical evidence of neoplasm of uncertain behavior, abscess formation or dermoid cyst present. is reassured. Secondary to the pain, he is agreeable to diclofenac gel which he request to be mailed to him. No other concerns per [place]. Follow-up PCP as needed. RTC as needed. ASSESSMENT/PLAN Cervicalgia As above able to verbalize understanding of plan of care and agrees. >> MEDICATIONS Reviewed and reconciled with [place] /catalina/ RAMAKRISHNA DING MS,PA-C PHYSICIAN HO[employer] P[employer]CH [employer] COILER OPERATOR HELPER Signed: 12/19/2023 12:54 RAMAKRISHNA GARIBAY [place] CNTRL [facility]
--- OUTSIDE RECORDS SUMMARY | 2024-08-07 11:28 | XMS_ITS | Encounter Summary ---
Author Name [facility] [place] Organization [place] Address [address] [place] [address] Care Team Providers Care Oim Architect Name Role Phone RUBI CROWE Primary Care [...] O MEDEX BRONZ E Jun [birth year], 2007 [id number] [phone] NEVIN WILLIAMSON PATIENT ANTHEM BCBS OF [place] MEDICARE SUPPLEMEN [place] PSUED O MEDEX BRONZ E Jun 06, 2007 [id number] NEVIN WILLIAMSON PATIENT ANTHEM BCBS OF [place] (BLUECARD) MEDICARE SUPPLEMEN [place] PSUED O MEDEX BRONZ E Jun 06, 2007 [id number] [phone] NEVIN WILLIAMSON PATIENT [place]BS [place] MEDICARE SUPPLEMEN [place] MEDEX BRONZ E Jun 06, 2007 [id number] NEVIN WILLIAMSON PATIENT [place]PP[place] MEDEX BRONZ E Jun 06, 2007 [id number] NEVIN WILLIAMSON PATIENT MEDICARE (WNR) MEDICARE (M) PART B Jun 06, 2007 PART B [id number] NEVIN WILLIAMSON PATIENT MEDICARE (WNR) MEDICARE (M) PART B Jun 06, 2007 PART B [id number] NEVIN WILLIAMSON PATIENT MEDICARE (WNR) MEDICARE (M) PART A Jan 04, 2003 PART A [id number] NEVIN WILLIAMSON PATIENT MEDICARE (WNR) MEDICARE (M) PART A Jan 04, 2003 PART A [id number] NEVIN WILLIAMSON PATIENT MEDICARE (WNR) MEDICARE (M) PART B Jan 04, 2003 PART B [id number] NEVIN WILLIAMSON PATIENT MEDICARE (WNR) MEDICARE (M) PART A Jan 04, 2003 PART A [id number] NEVIN WILLIAMSON PATIENT Selected Encounter This section includes the information on record at [place] for the Encounter. Date/Time Encounter Type Encounter Description Reason Pro vider Source Mar 10, 2024 12:00 PM Outpatient Encounter EVENT (HISTORICAL) IHE Encounter Template [...] - MEDICINE [place] [facility] Apr 23, 2024 11:00 AM AMBULATORY - MEDICINE [place] [facility] Apr 24, 2024 01:45 PM AMBULATORY - MEDICINE [place] [facility] [facility] May 13, 2024 11:00 AM AMBULATORY - MEDICINE [facility] [place] [facility] Jun 23, 2024 10:30 AM AMBULATORY - NONE [place] [facility] [facility] Jun 23, 2024 11:30 AM AMBULATORY - MEDICINE [place] C [facility] [place] [facility] Jun 30, 2024 10:00 AM AMBULATORY - MEDICINE [place] [facility] [place] [facility] Aug 04, 2024 09:30 AM AMBULATORY - MEDICINE [place] [facility] [place] [facility] Aug 12, 2024 11:00 AM AMBULATORY - MEDICINE [place] [facility] [place] [facility] Aug 14, 2024 09:00 AM AMBULATORY - MEDICINE [place] [facility] [place] [facility] Social History: Smoking Status (Most current) and [...] place. Date/Time Current Smoking Status Comment [facility] Jan 08, 2024 10:00 AM VA-TOBACCO FORMER USER [place] [facility] [place] [facility] Tobacco Use History This section includes a history of the smoking, or tobacco-related health factors, that were collected on or before the date of the Encounter. The data comes from the [place] facility where the Encounter took place. Date/Time Smoking Status/Tobac co Use Comment [facility] Jan 08, 2024 10:00 AM VA-TOBACCO QUIT 5 TO < 15 YRS [place] [facility] [place] [facility] May 03, 2022 01:00 PM VA-TOBACCO FORMER USER [place] [facility] [facility] May 03, 2022 01:00 PM VA-TOBACCO QUIT 15 YRS OR MORE [facility] [place] [facility] May 17, 2021 09:00 AM VA-TOBACCO FORMER USER [place] [facility] [place] [facility] May 17, 2021 09:00 AM VA-TOBACCO QUIT 15 YRS OR MORE [facility] [facility] May 28, 2020 03:00 PM VA-TOBACCO FORMER USER [place] [facility] [place] [facility] May 28, 2020 03:00 PM VA-TOBACCO QUIT 5 TO < 15 YRS [facility] Oct 04, 2018 11:04 AM [facility] Oct 04, 2018 11:04 AM VA-TOBACCO QUIT 1 TO < 5 YRS [facility] [place] [facility] Jan 24, 2018 01:52 PM [facility] Jan 24, 2018 01:52 PM QUIT TOBACCO USE IN PAST YEAR quit ciagarettes 3 months ago [facility] Encounter Notes: All associated encounter notes This section contains the clinical notes associated to the Encounter. Date/Time Encounter Note(s) Provider Source Mar 10, 2024 12:00 PM NONVA NOTE: LOCAL TITLE: NON-VA HOSPITALIZATIONS/ER STANDARD TITLE: NONVA NOTE DATE OF NOTE: MAR 10, 2024@12:00 ENTRY DATE: MAR 26, 2024@13:51:46 AUTHOR: INDERJIT FLORES EXP COSIGNER: URGENCY: STATUS: COMPLETED VistA Imaging - Scanned Document SCANNED DOCUMENT SIGNATURE NOT REQUIRED Electronically Filed: 03/26/2024 by: INDERJIT ABDI [facility]
--- OUTSIDE RECORDS SUMMARY | 2024-08-07 11:29 | XMS_ITS | Encounter Summary ---
Author Name [facility] [place] Organization [place] Address [address] [place] [id number] Care Team Providers Care Sales Training Representative Name Role Phone RUBI CROWE Primary Care [...] O MEDEX BRONZ E Jun 06, 2007 [id number] [phone] NEVIN WILLIAMSON PATIENT ANTHEM BCBS OF [place] MEDICARE SUPPLEMEN [place] PSUED O MEDEX BRONZ E Jun 06, 2007 [id number] [phone] NEVIN WILLIAMSON PATIENT ANTHEM BCBS OF [place] (BLUECARD) MEDICARE SUPPLEMEN [place] PSUED O MEDEX BRONZ E Jun 06, 2007 [id number] [phone] NEVIN WILLIAMSON PATIENT [place]BS [place] MEDIC[place] SUPPLEMEN [place] MEDEX BRONZ E Jun 06, 2007 [id number] [phone] NEVIN WILLIAMSON PATIENT [place] SUPP[place] MEDEX BRONZ E Jun 06, 2007 [id number] [phone] NEVIN WILLIAMSON PATIENT MEDICARE (WNR) MEDICARE (M) PART B Jun 06, 2007 PART B [id number] NEVIN WILLIAMSON PATIENT MEDICARE (WNR) MEDICARE (M) PART B Jun 06, 2007 PART B [id number] [phone] NEVIN WILLIAMSON PATIENT MEDICARE (WNR) MEDICARE (M) PART A Jan 04, 2003 PART A [id number] NEVIN WILLIAMSON PATIENT MEDICARE (WNR) MEDICARE (M) PART A Jan 04, 2003 PART A [id number] [phone] NEVIN WILLIAMSON PATIENT MEDICARE (WNR) MEDICARE (M) PART A Jan 04, 2003 PART A [id number] NEVIN WILLIAMSON PATIENT MEDICARE (WNR) MEDICARE (M) PART B Jan 04, 2003 PART B [id number] [phone] NEVIN WILLIAMSON PATIENT Selected Encounter This section includes the information on record at [place] for the Encounter. Date/Time Encounter Type Encounter Description Reason Pro vider Source May 05, 2024 10:08 AM Outpatient Encounter ADMIN PAT ACTIVTIES (MASNONCT) IHE Encounter Template Text not used by [place] Plan of Treatment: Future Appointments (+ 6 months) and Future Tests (+/- 45 days) The Plan of Treatment section includes future care activities for the patient from all [place] treatmentfacilities. This section includes future appointments and future orders which are active, pending or scheduled. Future Appointments This section includes appointments that were scheduled to occur 6 months from the date of the Encounter, up to a maximum of 20 appointments. The data comes from all [place] treatment facilities. Appointment Date/Time Appointment Type Appointme nt Facility Name May 13, 2024 11:00 AM AMBULATORY - MEDICINE [place] [facility] [place] [facility] Jun 23, 2024 10:30 AM AMBULATORY - NONE [place] [facility] [place] [place] [facility] Jun 23, 2024 11:30 AM AMBULATORY - MEDICINE [place] [facility] [place] [place] [facility] Jun 30, 2024 10:00 AM AMBULATORY - MEDICINE [place] [facility] [place] [place] [facility] Aug 04, 2024 09:30 AM AMBULATORY - MEDICINE [place] [facility] [place] [place] [facility] Aug 12, 2024 11:00 AM AMBULATORY - MEDICINE [place] [place] [facility] Aug 14, 2024 09:00 AM AMBULATORY - MEDICINE [facility] Active, Pending, and Scheduled Orders This section includes a listing of several types of active, pending, and scheduled orders, including clinic medications orders, diagnostic test orders, procedure orders and consult orders; where the start date of the order is 45 days before the date of the Encounter or 45 days after the date of theEncounter. The data comes from all [place] treatment facilities. Test Date/Time Test Type Test Details Facility Name May 21, 2024 02:45 PM Consult Order COMMUNITY CARE-CARDIOLOGY Cons Spring Assembler's Choice [facility] Social History: Smoking Status (Most current) and Tobacco Use (All prior to encounter date) This section includes the most current, and the historical, smoking and tobacco- related health factors from the [place] facility where the Encounter took place. Current Smoking Status This section includes the most current smoking, or tobacco-related health factor, from the [place] facility where the Encounter took place. Date/Time Current Smoking Status Comment Yessica maloney Jan 08, 2024 10:00 AM [place]-TOBACCO QUIT 5 TO < 15 YRS [facility] Tobacco Use History This section includes a history of the smoking, or tobacco-related health factors, that were collected on or before the date of the Encounter. The data comes from the [place] facility where the Encounter took place. Date/Time Smoking Status/Tobac co Use Comment Facility Jan 08, 2024 10:00 AM VA-TOBACCO QUIT 5 TO < 15 YRS [place] [facility] [place] [facility] May 03, 2022 01:00 PM VA-TOBACCO FORMER USER [place] [facility] [facility] May 03, 2022 01:00 PM VA-TOBACCO QUIT 15 YRS OR MORE [place] [facility] [place] [facility] May 17, 2021 09:00 AM VA-TOBACCO FORMER USER [place] [facility] [place] [facility] May 17, 2021 09:00 AM VA-TOBACCO QUIT 15 YRS OR MORE [place] [facility] [place] [facility] May 28, 2020 03:00 PM VA-TOBACCO FORMER USER [facility] May 28, 2020 03:00 PM VA-TOBACCO QUIT 5 TO < 15 YRS [place] [facility] [place] [facility] Oct 04, 2018 11:04 AM VA-TOBACCO FORMER USER [facility] Oct 04, 2018 11:04 AM VA-TOBACCO QUIT 1 TO < 5 YRS [place] [facility] [place] [facility] Jan 24, 2018 01:52 PM CURRENT SMOKER [place] [facility] [place] [facility] Jan 24, 2018 01:52 PM QUIT TOBACCO USE IN PAST YEAR quit ciagarettes 3 months ago [facility] Encounter Notes: All associated encounter notes This section contains the clinical notes associated to the Encounter. Date/Time Encounter Note(s) Provider Source May 05, 2024 10:08 AM ADMINISTRATIVE NOTE: LOCAL TITLE: CCC: SCHEDULING ADMINISTRATION STANDARD TITLE: ADMINISTRATIVE NOTE DATE OF NOTE: MAY 05, 2024@10:08:18 ENTRY DATE: MAY 05, 2024@10:08:19 AUTHOR: ASHELY CLARK EXP COSIGNER: URGENCY: STATUS: COMPLETED CCC: SCHEDULING ADMINISTRATION Has ADDENDA Patient Demographics Patient Name: NEVIN WILLIAMSON Patient Primary Phone: [phone] Patient Primary Address: [address] [place] [address] Patient : 1940 Patient Age: 84 Caller/Recipient Relation to Patient: Self Administrative Administrative Note Reason: Other Administrative Note Comments: called requesting to cancel and reschedule RN appointment. Water And Fire Technician unable to reschedule RN appointment. Amenia has a cold and would rather not get RSV shot while he is not feeling well. is requesting a call back to schedule. Please advise IMPORTANT: This note was created by [facility] staff. Please do not alert the staff member by adding them as a signer for future communications. Alerts are not monitored by this user. /catalina/ ASHELY FORD 1 [facility] Signed: 05/05/2024 10:08 Receipt Acknowledged By: 05/05/2024 10:11 /catalina/ AGUS KING REGISTERED NURSE for MARIA FERNANDA OLVERA 05/05/2024 10:55 /es/ CONCETTA ARAMBULA 05/05/2024 ADDENDUM STATUS: COMPLETED Defer to [facility] to reschedule RN appointment /catalina/ AGUS KING REGISTERED NURSE Signed: 05/05/2024 10:11 05/05/2024 ADDENDUM STATUS: COMPLETED [facility] CALLED ON THE TELEPHONE AND RESCHEDULED AN APPT SET FOR May @ 11AM. /catalina/ CONCETTA LYONS AMSA Signed: 05/05/2024 10:57 ASHELY CLARK CNTRL [facility]
--- OUTSIDE RECORDS SUMMARY | 2024-08-07 11:29 | XMS_ITS ---
Author Name [place] Address [address] [place] [address] Care Team Providers Care Janitor Helper Name Role Phone RUBI CROWE Primary Care [...] O MEDEX BRONZ E Jun 06, 2007 [id number] NEVIN WILLIAMSON PATIENT ANTHEM BCBS OF [place] MEDICARE SUPPLEMEN [place] PSUED O MEDEX BRONZ E Jun 06, 2007 [id number] [phone] NEVIN WILLIAMSON PATIENT ANTHEM BCBS OF [place] (BLUECARD) MEDICARE SUPPLEMEN [place] PSUED O MEDEX BRONZ E Jun 06, 2007 [id number] [phone] NEVIN WILLIAMSON PATIENT [place] MEDICARE SUPPLEMEN [place] MEDEX BRONZ E Jun 06, 2007 [id number] NEVIN WILLIAMSON PAT[place] MEDEX BRONZ E Jun 06, 2007 [id number] NEVIN WILLIAMSON PATIENT MEDICARE (WNR) MEDICARE (M) PART B Jun 06, 2007 PART B [id number] NEVIN WILLIAMSON PATIENT MEDICARE (WNR) MEDICARE (M) PART B Jun 06, 2007 PART B [id number] NEVIN WILLIAMSON PATIENT MEDICARE (WNR) MEDICARE (M) PART A Jan 04, 2003 PART A [id number] NEVIN WILLIAMSON PATIENT MEDICARE (WNR) MEDICARE (M) PART B Jan 04, 2003 PART B [id number] NEVIN WILLIAMSON PATIENT MEDICARE (WNR) MEDICARE (M) PART A Jan 04, 2003 PART A [id number] NEVIN WILLIAMSON PATIENT MEDICARE (WNR) MEDICARE (M) PART A Jan 04, 2003 PART A [id number] NEVIN WILLIAMSON PATIENT Selected Encounter This section includes the information on record at [place] for the Encounter. Date/Time Encounter Type Encounter Description Reason Pro vider Source May 02, 2024 02:07 PM Outpatient Encounter COMMUNITY CARE CONSULT IHE Encounter Template Text not used by [place] Plan of Treatment: Future Appointments (+ 6 months) and Future Tests (+/- 45 days) The Plan of Treatment section includes future care activities for the patient from all [place] treatmentfacilities. This section includes future appointments and future orders which are active, pending or scheduled. Future Appointments This section includes appointments that were scheduled to occur 6 months from the date of the Encounter, up to a maximum of 20 appointments. The data comes from all [place] treatment facilities. Appointment Date/Time Appointment Type Appointme nt Facility Name May 13, 2024 11:00 AM AMBULATORY - MEDICINE [place] [facility] Jun 23, 2024 10:30 AM AMBULATORY - NONE [place] [place] [facility] Jun 23, 2024 11:30 AM AMBULATORY - MEDICINE [place] [facility] Jun 30, 2024 10:00 AM AMBULATORY - MEDICINE [place] [facility] Aug 04, 2024 09:30 AM AMBULATORY - MEDICINE [facility] [place] [facility] Aug 12, 2024 11:00 AM AMBULATORY - MEDICINE [facility] [place] [facility] Aug 14, 2024 09:00 AM AMBULATORY - MEDICINE [facility] N[facility]L [facility] Active, Pending, and Scheduled Orders This section includes a listing of several types of active, pending, and scheduled orders, including clinic medications orders, diagnostic test orders, procedure orders and consult orders; where the start date of the order is 45 days before the date of the Encounter or 45 days after the date of theEncounter. The data comes from all [place] treatment facilities. Test Date/Time Test Type Test Details Facility Name May 21, 2024 02:45 PM Consult Order COMMUNITY CARE-CARDIOLOGY Cons Inspector Cold Working's Choice [facility] Social History: Smoking Status (Most current) and Tobacco Use (All prior to encounter date) This section includes the most current, and the historical, smoking and tobacco- related health factors from the [place] facility where the Encounter took place. Current Smoking Status This section includes the most current smoking, or tobacco-related health factor, from the [place] facility where the Encounter took place. Date/Time Current Smoking Status Comment [facility] Jan 08, 2024 10:00 AM VA-TOBACCO FORMER USER [place] CN[facility] Tobacco Use History This section includes a history of the smoking, or tobacco-related health factors, that were collected on or before the date of the Encounter. The data comes from the [place] facility where the Encounter took place. Date/Time Smoking Status/Tobac co Use Comment Facility Jan 08, 2024 10:00 AM VA-TOBACCO QUIT 5 TO < 15 YRS [place] [place] [facility] May 03, 2022 01:00 PM VA-TOBACCO FORMER USER [place] [facility] May 03, 2022 01:00 PM VA-TOBACCO QUIT 15 YRS OR MORE [place] [place] [facility] May 17, 2021 09:00 AM VA-TOBACCO FORMER USER [place] [facility] May 17, 2021 09:00 AM VA-TOBACCO QUIT 15 YRS OR MORE [place] [facility] May 28, 2020 03:00 PM VA-TOBACCO FORMER USER [place] [facility] [place] [facility] May 28, 2020 03:00 PM VA-TOBACCO QUIT 5 TO < 15 YRS [facility] [place] [facility] Oct 04, 2018 11:04 AM VA-TOBACCO FORMER USER [place] [facility] [place] [facility] Oct 04, 2018 11:04 AM VA-TOBACCO QUIT 1 TO < 5 YRS [facility] [place] [facility] Jan 24, 2018 01:52 PM CURRENT SMOKER [facility] [place] [facility] Jan 24, 2018 01:52 PM QUIT TOBACCO USE IN PAST YEAR quit ciagarettes 3 months ago [place] [facility] [place] [facility] Encounter Notes: All associated encounter notes This section contains the clinical notes associated to the Encounter. Date/Time Encounter Note(s) Provider Source May 02, 2024 02:07 PM NONVA NOTE: LOCAL TITLE: [facility] CARE COORD PLAN STANDARD TITLE: NONVA NOTE DATE OF NOTE: MAY 02, 2024@14:07 ENTRY DATE: MAY 02, 2024@14:07:55 AUTHOR: BRANDY BLANCAS EXP COSIGNER: URGENCY: STATUS: COMPLETED Emergency Notification Intake Date Presenting to the Facility: Apr Method of Contact: Notified from [facility] worklist Notification ID: [id number] [facility] Referral #: [id number] [facility] Name: Hospital: [facility] Address: City: [place] State: [place] Zip Code: Phone : [facility] Point of Contact: Name: Candelario Phone: Chief complaint: KIDNEY INFECTION Primary Diagnosis: Disposition Discharged Date of discharge: Mar Discharge to Comment: ER Only /catalina/ BRANDY ARAMBULA Signed: 05/02/2024 14:10 Receipt Acknowledged By: * AWAITING SIGNATURE * ALEXANDRIA KNAPP * AWAITING SIGNATURE * LUIS BRUCE * AWAITING SIGNATURE * CHERRY ZIEGLER * AWAITING SIGNATURE * AGUS AVENDAÑO DAWN MARIE SCRANTON
--- OUTSIDE RECORDS SUMMARY | 2024-08-07 11:29 | XMS_ITS ---
Author Name [place] Address [address] [place] [address] Care Team Providers Care Feed Miller Name Role Phone RUBI CROWE Primary Care [...] O MEDEX BRONZ E Jun 06, 2007 [id number] [phone] NEVIN WILLIAMSON PATIENT ANTHEM BCBS OF [place] MEDICARE SUPPLEMEN [place] PSUED O MEDEX BRONZ E Jun 06, 2007 [id number] NEVIN WILLIAMSON PATIENT ANTHEM BCBS OF [place] (BLUECARD) MEDICARE SUPPLEMEN [place] PSUED O MEDEX BRONZ E Jun 06, 2007 [id number] NEVIN WILLIAMSON PATIENT BCBS [place] MEDICARE SUPPLEMEN SALV[place]ORE MEDEX BRONZ E Jun 06, 2007 [id number] NEVIN WILLIAMSON PATIENT BCBS [place] MEDICARE SUPPLEMEN [place]ORE MEDEX BRONZ E Jun 06, 2007 [id number] NEVIN WILLIAMSON PATIENT MEDICARE (WNR) MEDICARE (M) PART B Jun 06, 2007 PART B [id number] NEVIN WILLIAMSON PATIENT MEDICARE (WNR) MEDICARE (M) PART B Jun 06, 2007 PART B [id number] [phone] NEVIN WILLIAMSON PATIENT MEDICARE (WNR) MEDICARE (M) PART A Jan 04, 2003 PART A [id number] NEVIN WILLIAMSON PATIENT MEDICARE (WNR) MEDICARE (M) PART A Jan 04, 2003 PART A [id number] NEVIN WILLIAMSON PATIENT MEDICARE (WNR) MEDICARE (M) PART B Jan 04, 2003 PART B [id number] NEVIN WILLIAMSON PATIENT MEDICARE (WNR) MEDICARE (M) PART A Jan 04, 2003 PART A [id number] [phone] NEVIN WILLIAMSON PATIENT Selected Encounter This section includes the information on record at [place] for the Encounter. Date/Time Encounter Type Encounter Description Reason Pro vider Source Apr 21, 2024 12:00 PM Outpatient Encounter COMMUNITY [...] Appointment Type Appointme nt Facility Name Apr 23, 2024 11:00 AM AMBULATORY - MEDICINE [place] [facility] Apr 24, 2024 01:45 PM AMBULATORY - MEDICINE [place] [facility] May 13, 2024 11:00 AM AMBULATORY - MEDICINE [place] [facility] Jun 23, 2024 10:30 AM AMBULATORY - NONE [place] [place] [facility] Jun 23, 2024 11:30 AM AMBULATORY - MEDICINE [facility] [place] [place] [facility] Jun 30, 2024 10:00 AM AMBULATORY - MEDICINE [place] [facility] Aug 04, 2024 09:30 AM AMBULATORY - MEDICINE [place] [facility] Aug 12, 2024 11:00 AM AMBULATORY - MEDICINE [facility] [place] [place] [facility] Aug 14, 2024 09:00 AM AMBULATORY - MEDICINE [facility] Active, Pending, and Scheduled Orders This section includes a listing of several types of active, pending, and scheduled orders, including clinic medications orders, diagnostic test orders, procedure orders and consult orders; where the start date of the order is 45 days before the date of the Encounter or 45 days after the date of theEncounter. The data comes from all [place] treatment facilities. Test Date/Time Test Type Test Details Facility Name May 21, 2024 02:45 PM Consult Order COMMUNITY CARE-CARDIOLOGY Cons Broaching Machine Repairer's Choice [facility] Social History: Smoking Status (Most current) and [...] took place. Date/Time Current Smoking Status Comment [facility] Jan 08, 2024 10:00 AM [place]-TOBACCO QUIT 5 TO < 15 YRS [facility] Tobacco Use History This section includes a history of the smoking, or tobacco-related health factors, that were collected on or before the date of the Encounter. The data comes from the [place] facility where the Encounter took place. Date/Time Smoking Status/Tobac co Use Comment Facility Jan 08, 2024 10:00 AM [place]-TOBACCO QUIT 5 TO < 15 YRS [facility] May 03, 2022 01:00 PM VA-TOBACCO [facility] May 03, 2022 01:00 PM VA-TOBACCO QUIT 15 YRS OR MORE [facility] May 17, 2021 09:00 AM VA-TOBACCO FORMER USER [place] [place] [facility] May 17, 2021 09:00 AM VA-TOBACCO QUIT 15 YRS OR MORE [place] [place] [facility] May 28, 2020 03:00 PM VA-TOBACCO FORMER USER [place] [facility] [place] [facility] May 28, 2020 03:00 PM VA-TOBACCO QUIT 5 TO < 15 YRS [place] [facility] [place] [facility] Oct 04, 2018 11:04 AM VA-TOBACCO FORMER USER [place] [place] [facility] Oct 04, 2018 11:04 AM VA-TOBACCO QUIT 1 TO < 5 YRS [place] [facility] [place] [facility] Jan 24, 2018 01:52 PM CURRENT SMOKER [place] [facility] [place] [facility] Jan 24, 2018 01:52 PM QUIT TOBACCO USE IN PAST YEAR quit ciagarettes 3 months ago [facility] Encounter Notes: All associated encounter notes This section contains the clinical notes associated to the Encounter. Date/Time Encounter Note(s) Provider Source Apr 21, 2024 12:00 PM NONVA CONSULT: LOCAL TITLE: COMMUNITY CARE-CONSULT RESULT NOTE STANDARD TITLE: NONVA CONSULT DATE OF NOTE: APR 21, 2024@12:00 ENTRY DATE: MAY 09, 2024@12:41:26 AUTHOR: ORLANDO KENYON EXP COSIGNER: URGENCY: STATUS: COMPLETED VistA Imaging - Scanned Document SCANNED DOCUMENT SIGNATURE NOT REQUIRED Electronically Filed: 05/09/2024 by: ORLANDO KENYON COMPENSATOR ORLANDO KENYON [facility]
--- OUTSIDE RECORDS SUMMARY | 2024-08-07 11:29 | XMS_ITS ---
Author Name [facility] [place] Organization [place] Address [address] [place] [id number] Care Team Providers Care Siebel Administrator Name Role Phone RUBI CROWE Primary [...] O MEDEX BRONZ E Jun 06, 2007 [id number] [phone] NEVIN WILLIAMSON PATIENT ANTHEM BCBS OF [place] MEDICARE SUPPLEMEN SALVATORE PSUED O MEDEX BRONZ E Jun 06, 2007 [id number] [phone] NEVIN WILLIAMSON PATIENT ANTHEM BCBS OF [place] (BLUECARD) MEDICARE SUPPLEMEN [place] PSUED O MEDEX BRONZ E Jun 06, 2007 [id number] NEVIN WILLIAMSON PATIENT [place] MEDIC[place] SUPPLEMEN [place] MEDEX BRONZ E Jun 06, 2007 [id number] NEVIN WILLIAMSON [place]IENT [place] MEDEX BRONZ E Jun 06, 2007 [id number] [phone] NEVIN WILLIAMSON PATIENT MEDICARE (WNR) MEDICARE (M) PART B Jun 06, 2007 PART B [id number] NEVIN WILLIAMSON PATIENT MEDICARE (WNR) MEDICARE (M) PART B Jun 06, 2007 PART B [id number] [phone] NEVIN WILLIAMSON PATIENT MEDICARE (WNR) MEDICARE (M) PART A Jan 04, 2003 PART A [id number] [phone] NEVIN WILLIAMSON PATIENT MEDICARE (WNR) MEDICARE (M) PART A Jan 04, 2003 PART A [id number] NEVIN WILLIAMSON PATIENT MEDICARE (WNR) MEDICARE (M) PART B Jan 04, 2003 PART B [id number] NEVIN WILLIAMSON PATIENT MEDICARE (WNR) MEDICARE (M) PART A Jan 04, 2003 PART A [id number] [phone] NEVIN WILLIAMSON PATIENT Selected Encounter This section includes the information on record at [place] for the Encounter. Date/Time Encounter Type Encounter Description Reason Pro vider Source Apr 17, 2024 12:00 AM Outpatient Encounter EVENT (HISTORICAL) IHE Encounter Template Text not used by [place] Plan of Treatment: Future Appointments (+ 6 [...] 23, 2024 11:00 AM AMBULATORY - MEDICINE [place] [facility] [place] [facility] Apr 24, 2024 01:45 PM AMBULATORY - MEDICINE [place] [facility] [place] [facility] May 13, 2024 11:00 AM AMBULATORY - MEDICINE [place] [facility] Jun 23, 2024 10:30 AM AMBULATORY - NONE [place] [facility] [place] [facility] Jun 23, 2024 11:30 AM AMBULATORY - MEDICINE [facility] [place] [facility] Jun 30, 2024 10:00 AM AMBULATORY - MEDICINE [place] [facility] [facility] Aug 04, 2024 09:30 AM AMBULATORY - MEDICINE [place] [facility] Aug 12, 2024 11:00 AM AMBULATORY - MEDICINE [facility] [place] [facility] Aug 14, 2024 09:00 AM AMBULATORY - MEDICINE [facility] Active, Pending, and Scheduled Orders This section includes a listing of several types of active, pending, and scheduled orders, including clinic medications orders, diagnostic test orders, procedure orders and consult orders; where the start date of the order is 45 days before the date of the Encounter or 45 days after the date of theEncounter. The data comes from all [place] treatment facilities. Test Date/Time Test Type Test Details Facility Name May 21, 2024 02:45 PM Consult Order COMMUNITY CARE-CARDIOLOGY Cons Jaw Skinner's Choice [facility] Social History: Smoking Status (Most current) [...] took place. Date/Time Current Smoking Status Comment [facility] Jan 08, 2024 10:00 AM [place]-TOBACCO QUIT 5 TO < 15 YRS [facility] Tobacco Use History This section includes a history of the smoking, or tobacco-related health factors, that were collected on or before the date of the Encounter. The data comes from the [place] facility where the Encounter took place. Date/Time Smoking Status/Tobac co Use Comment Facility Jan 08, 2024 10:00 AM [place]-TOBACCO QUIT 5 TO < 15 YRS [facility] [place] [facility] May 03, 2022 01:00 PM VA-TOBACCO FORMER USER [facility] May 03, 2022 01:00 PM VA-TOBACCO QUIT 15 YRS OR MORE [facility] May 17, 2021 09:00 AM VA-TOBACCO FORMER USER [place] [facility] [place] [facility] May 17, 2021 09:00 AM VA-TOBACCO QUIT 15 YRS OR MORE [facility] [place] [facility] May 28, 2020 03:00 PM VA-TOBACCO FORMER USER [facility] [place] [place] [facility] May 28, 2020 03:00 PM VA-TOBACCO QUIT 5 TO < 15 YRS [facility] [place] [facility] Oct 04, 2018 11:04 AM VA-TOBACCO FORMER USER [place] [facility] [place] [facility] Oct 04, 2018 11:04 AM VA-TOBACCO QUIT 1 TO < 5 YRS [place] [facility] [place] [facility] Jan 24, 2018 01:52 PM CURRENT SMOKER [place] [facility] [place] [facility] Jan 24, 2018 01:52 PM QUIT TOBACCO USE IN PAST YEAR quit ciagarettes 3 months ago [place] [facility] [place] [facility] Encounter Notes: All associated encounter notes This section contains the clinical notes associated to the Encounter. Date/Time Encounter Note(s) Provider Source Apr 17, 2024 12:00 AM NONVA NOTE: LOCAL TITLE: NON-VA OUTPATIENT NOTES STANDARD TITLE: NONVA NOTE DATE OF NOTE: APR 17, 2024 ENTRY DATE: MAY 02, 2024@14:46:41 AUTHOR: ALETHEA NICHOLSON EXP COSIGNER: URGENCY: STATUS: COMPLETED VistA Imaging - Scanned Document SCANNED DOCUMENT SIGNATURE NOT REQUIRED Electronically Filed: 05/02/2024 by: ALETHEA NICHOLSON GAS METER CHECKER ALETHEA NICHOLSON [place] [facility]
--- OUTSIDE RECORDS SUMMARY | 2024-08-07 11:29 | XMS_ITS ---
Author Name [place] Address [address] [place] [id number] Care Team Providers Care [place] Supervisor Name Role Phone RUBI CROWE Primary [...] O MEDEX BRONZ E Jun 06, 2007 [id number] NEVIN WILLIAMSON PATIENT ANTHEM BCBS OF [place] MEDICARE SUPPLEMEN [place] PSUED O MEDEX BRONZ E Jun 06, 2007 [id number] [phone] NEVIN WILLIAMSON PATIENT ANTHEM BCBS OF CT (BLUECARD) MEDICARE SUPPLEMEN [place] PSUED O MEDEX BRONZ E Jun 06, 2007 [id number] NEVIN WILLIAMSON PATIENT [place]PP[place] MEDEX BRONZ E Jun 06, 2007 [id number] NEVIN WILLIAMSON PATIENT [place]PP[place] MEDEX BRONZ E Jun 06, 2007 [id number] [phone] NEVIN WILLIAMSON PATIENT MEDICARE (WNR) MEDICARE (M) PART B Jun 06, 2007 PART B [id number] NEVIN WILLIAMSON PATIENT MEDICARE (WNR) MEDICARE (M) PART B Jun 06, 2007 PART B [id number] NEVIN WILLIAMSON PATIENT MEDICARE (WNR) MEDICARE (M) PART A Jan 04, 2003 PART A [id number] [phone] NEVIN WILLIAMSON PATIENT MEDICARE (WNR) MEDICARE (M) PART A Jan 04, 2003 PART A [id number] NEVIN WILLIAMSON PATIENT MEDICARE (WNR) MEDICARE (M) PART A Jan 04, 2003 PART A [id number] NEVIN WILLIAMSON PATIENT MEDICARE (WNR) MEDICARE (M) PART B Jan 04, 2003 PART B [id number] NEVIN WILLIAMSON PATIENT Selected Encounter This section includes the information on record at [place] for the Encounter. Date/Time Encounter Type Encounter Description Reason Provider Source Apr 24, 2024 01:45 PM OFF/OP EST DECEMBER X REQ PHY/QHP PRIMARY CARE/MEDICINE ICD-10-CM Z23 Encounter for immunization CHILSON,TIMOT HY E IHE Encounter Template Text not used by [place] Assessments - Encounter Diagnoses This section includes the primary and secondary diagnoses documented for the Encounter. Date/Time Primary/Secondary Diagnosis Diagnosis Name Provider Source Apr 24, 2024 01:59 PM PRIMARY Encounter for immunization CHILSON,TIMOT HY E [place] [facility] Plan of Treatment: Future Appointments [...] 13, 2024 11:00 AM AMBULATORY - MEDICINE [facility] [place] [place] [facility] Jun 23, 2024 10:30 AM AMBULATORY - NONE [facility] Jun 23, 2024 11:30 AM AMBULATORY - MEDICINE [place] [facility] Jun 30, 2024 10:00 AM AMBULATORY - MEDICINE [facility] [place] [facility] Aug 04, 2024 09:30 AM AMBULATORY - MEDICINE [facility] [place] [facility] Aug 12, 2024 11:00 AM AMBULATORY - MEDICINE [facility] Aug 14, 2024 09:00 AM AMBULATORY - MEDICINE [facility] NTRL [facility] Active, Pending, and Scheduled Orders This section includes a listing of several types of active, pending, and scheduled orders, including clinic medications orders, diagnostic test orders, procedure orders and consult orders; where the start date of the order is 45 days before the date of the Encounter or 45 days after the date of theEncounter. The data comes from all [place] treatment facilities. Test Date/Time Test Type Test Details Facility Name May 21, 2024 02:45 PM Consult Order COMMUNITY CARE-CARDIOLOGY Cons Interventional Tech's Choice [facility] Immunizations: All administered on the encounter date This section contains immunizations associated to the Encounter. Immunization Series Date Issued Reaction Comments COVID-19 (MODERNA), MRNA, LN P-S, PF, 50 MCG/0.5 ML (AGES 12+ YEARS) Apr 24, 2024 INFLUENZA, HIGH-DOSE, TRIVALENT, PF Apr 24 Social History: Smoking Status (Most current) and [...] Yessica huizar Jan 08, 2024 10:00 AM [place]-TOBACCO QUIT 5 TO < 15 YRS [facility] Tobacco Use History This section includes a history of the smoking, or tobacco-related health factors, that were collected on or before the date of the Encounter. The data comes from the [facility] where the Encounter took place. Date/Time Smoking Status/Tobac co Use Comment Facility Jan 08, 2024 10:00 AM VA-TOBACCO QUIT 5 TO < 15 YRS [place] [facility] [place] [facility] May 03, 2022 01:00 PM VA-TOBACCO FORMER USER [place] [place] [facility] May 03, 2022 01:00 PM VA-TOBACCO QUIT 15 YRS OR MORE [place] [facility] [place] [facility] May 17, 2021 09:00 AM VA-TOBACCO FORMER USER [place] [facility] [place] [facility] May 17, 2021 09:00 AM VA-TOBACCO QUIT 15 YRS OR MORE [place] [facility] [place] [facility] May 28, 2020 03:00 PM VA-TOBACCO FORMER USER [facility] [place] [facility] May 28, 2020 03:00 PM VA-TOBACCO QUIT 5 TO < 15 YRS [facility] [place] [facility] Oct 04, 2018 11:04 AM VA-TOBACCO FORMER USER [facility] [place] [facility] Oct 04, 2018 11:04 AM VA-TOBACCO QUIT 1 TO < 5 YRS [facility] [place] [facility] Jan 24, 2018 01:52 PM CURRENT SMOKER [place] [facility] [place] [facility] Jan 24, 2018 01:52 PM QUIT TOBACCO USE IN PAST YEAR quit ciagarettes 3 months ago [place] [facility] Encounter Notes: All associated encounter notes This section contains the clinical notes associated to the Encounter. Date/Time Encounter Note(s) Provider Source Apr 24, 2024 01:53 PM PREVENTIVE MEDICIN E NURSING NOTE: LOCAL TITLE: CLINICAL REMINDERS/NURSING STANDARD TITLE: PREVENTIVE MEDICINE NURSING NOTE DATE OF NOTE: APR 24, 2024@13:53 ENTRY DATE: APR 24, 2024@13:53:49 AUTHOR: UMER WHITFIELD EXP COSIGNER: URGENCY: STATUS: COMPLETED Influenza Immunization: Influenza, High-Dose, Trivalent, Preservative Free (Fluzone-Syringe) Administered: INFLUENZA, HIGH-DOSE, TRIVALENT, PF Date Administered: Apr 24, 2024 13:45 Supervisor Doping: SANOFI PASTEUR Lot: [id number] Exp Date: Feb 02, 2025 NDC: [id number] Admin Route/Site: INTRAMUSCULAR/RIGHT DELTOID Dosage: 0.5mL Vaccine Information Statement(s): INFLUENZA(FLU) VACC(INACTIVATED OR RECOMBINANT)VIS Mar 11, 2021 ([employer] [place]) Order By: Policy Administered By: Umer Whitfield The Influenza Vaccine Information Statement (VIS) was reviewed with the patient/caregiver which lists the benefits and risks of the vaccine and the risks of not receiving the Influenza vaccine. The patient/caregiver denied any prior severe reaction to this vaccine or its components or a severe allergic reaction, such as anaphylaxis, to any vaccine or any injectable therapy. The patient/caregiver gave verbal consent to receive the vaccine. COVID-19 Immunization: Moderna Monovalent (Spikevax) Administered: COVID-19 (MODERNA), MRNA, LNP-S, PF, 50 MCG/0.5 ML (AGES 12+ YEARS) Date Administered: Apr 24, 2024 13:45 Supervisor Doping: MODERNA [employer]. Lot: [id number] Exp Date: December 27, 2024 NDC: [id number] Admin Route/Site: INTRAMUSCULAR/LEFT DELTOID Dosage: 0.5mL Vaccine Information Statement(s): COVID-19 MRNA VACCINE (12+ YRS) VACCINE VIS May 24, 2023 ([employer] [place]) Order By: Policy Administered By: Umer Whitfield Vaccine administered without complications. /catalina/ UMER WHITFIELD MSN Ed., BSN SALES REPRESENTATIVE [employer] NURSE Signed: 04/24/2024 13:59 UMER WHITFIELD IN [facility]
--- OUTSIDE RECORDS SUMMARY | 2024-08-07 11:29 | XMS_ITS | Encounter Summary ---
Author Name [place] Address [address] [place] [address] Care Team Providers Care Coagulating Bath Operator Name Role Phone RUBI CROWE Primary [...] O MEDEX BRONZ E Jun 06, 2007 [id number] NEVIN WILLIAMSON PATIENT ANTHEM BCBS OF [place] MEDICARE SUPPLEMEN [place] PSUED O MEDEX BRONZ E Jun 06, 2007 [id number] NEVIN WILLIAMSON PATIENT ANTHEM BCBS OF [place] (BLUECARD) MEDICARE SUPPLEMEN [place] PSUED O MEDEX BRONZ E Jun 06, 2007 [id number] [phone] NEVIN WILLIAMSON PATIENT [place]BS [place] MEDICARE SUPPLEMEN [place] MEDEX BRONZ E Jun 06, 2007 [id number] NEVIN WILLIAMSON PATIENT [place] MEDEX BRONZ E Jun 06, 2007 [id number] [phone] NEVIN WILLIAMSON PATIENT MEDICARE (WNR) MEDICARE (M) PART B Jun 06, 2007 PART B [id number] NEVIN WILLIAMSON PATIENT MEDICARE (WNR) MEDICARE (M) PART B Jun 06, 2007 PART B [id number] NEVIN WILLIAMSON PATIENT MEDICARE (WNR) MEDICARE (M) PART A Jan 04, 2003 PART A [id number] [phone] NEVIN WILLIAMSON PATIENT MEDICARE (WNR) MEDICARE (M) PART B Jan 04, 2003 PART B [id number] [phone] NEVIN WILLIAMSON PATIENT MEDICARE (WNR) MEDICARE (M) PART A Jan 04, 2003 PART A [id number] NEVIN WILLIAMSON PATIENT MEDICARE (WNR) MEDICARE (M) PART A Jan 04, 2003 PART A [id number] NEVIN WILLIAMSON PATIENT Selected Encounter This section includes the information on record at [place] for the Encounter. Date/Time Encounter Type Encounter Description Reason Provider Source Apr 23, 2024 11:00 AM FIT SPECTACLES MONOFOCAL OPTOMETRY ICD-10-CM Z46.0 Encounter for fit/adjst of spectacles and contact lenses HOWARD JACKSON [facility] Encounter Template Text not used by [place] Assessments - Encounter Diagnoses This section includes the primary and secondary diagnoses documented for the Encounter. Date/Time Primary/Secondary Diagnosis Diagnosis Name Provider Source Apr 23, 2024 11:34 AM PRIMARY Encounter for fit/adjst of spectacles and contact lenses HOWARD JACKSON [place] [facility] Plan of Treatment: Future Appointments (+ [...] Appointment Type Appointme nt Facility Name Apr 24, 2024 01:45 PM AMBULATORY - MEDICINE [place] [facility] May 13, 2024 11:00 AM AMBULATORY - MEDICINE [place] [facility] Jun 23, 2024 10:30 AM AMBULATORY - NONE [place] [facility] Jun 23, 2024 11:30 AM AMBULATORY - MEDICINE [place] [facility] Jun 30, 2024 10:00 AM AMBULATORY - MEDICINE [place] [facility] Aug 04, 2024 09:30 AM AMBULATORY - MEDICINE [place] [facility] Aug 12, 2024 11:00 AM AMBULATORY - MEDICINE [place] [facility] Aug 14, 2024 09:00 AM AMBULATORY - MEDICINE [place] [facility] Active, Pending, and Scheduled Orders This section includes a listing of several types of active, pending, and scheduled orders, including clinic medications orders, diagnostic test orders, procedure orders and consult orders; where the start date of the order is 45 days before the date of the Encounter or 45 days after the date of theEncounter. The data comes from all [facility]. Test Date/Time Test Type Test Details Facility Name May 21, 2024 02:45 PM Consult Order COMMUNITY CARE-CARDIOLOGY Cons Jewelry Coater's Choice [facility] Social History: Smoking Status (Most current) [...] Date/Time Current Smoking Status Comment Facil it Jan 08, 2024 10:00 AM [place]-TOBACCO [facility] Tobacco Use History This section includes a history of the smoking, or tobacco-related health factors, that were collected on or before the date of the Encounter. The data comes from the [place] facility where the Encounter took place. Date/Time Smoking Status/Tobac co Use Comment Facility Jan 08, 2024 10:00 AM VA-TOBACCO QUIT 5 TO < 15 YRS [place] [facility] [place] [facility] May 03, 2022 01:00 PM VA-TOBACCO FORMER USER [place] [facility] [place] [facility] May 03, 2022 01:00 PM VA-TOBACCO QUIT 15 YRS OR MORE [place] [facility] [place] [facility] May 17, 2021 09:00 AM VA-TOBACCO FORMER USER [place] [facility] [place] [facility] May 17, 2021 09:00 AM VA-TOBACCO QUIT 15 YRS OR MORE [place] [facility] [place] [facility] May 28, 2020 03:00 PM VA-TOBACCO FORMER USER [place] [facility] [place] [facility] May 28, 2020 03:00 PM VA-TOBACCO QUIT 5 TO < 15 YRS [facility] [place] [facility] Oct 04, 2018 11:04 AM VA-TOBACCO FORMER USER [place] [facility] [place] [facility] Oct 04, 2018 11:04 AM VA-TOBACCO QUIT 1 TO < 5 YRS [place] [facility] [place] [facility] Jan 24, 2018 01:52 PM CURRENT SMOKER [place] [facility] [place] [facility] Jan 24, 2018 01:52 PM QUIT TOBACCO USE IN PAST YEAR quit ciagarettes 3 months ago [place] [facility] [place] [facility] Encounter Notes: All associated encounter notes This section contains the clinical notes associated to the Encounter. Date/Time Encounter Note(s) Provider Source Apr 23, 2024 11:29 AM OPTOMETRY NOTE: LOCAL TITLE: OPTOMETRY NOTE STANDARD TITLE: OPTOMETRY NOTE DATE OF NOTE: APR 23, 2024@11:29 ENTRY DATE: APR 23, 2024@11:29:25 AUTHOR: HOWARD JACKSON EXP COSIGNER: URGENCY: STATUS: COMPLETED Patient came in today with his outside RX [facility] [place] [id number] PH:[phone] Exam date:04/21/2024 Exp date:04/21/2025 OD:+0.25 -1.00 110 OS:-0.75 SPH ADD:+2.50 PD:62-59 DVO- Modern slick tort 57-17-150 NVO- Modern slick tort 57-17-150 /catalina/ HOWARD COSBY [facility] Signed: 04/23/2024 11:34 HOWARD JACKSON [facility]
--- OUTSIDE RECORDS SUMMARY | 2024-08-07 11:29 | XMS_ITS | Encounter Summary ---
Author Name [facility] [place] Organization [facility] [place] Address [address] [place] [address] Care Team Providers Care Rubber Roller Grinder Name Role Phone RUBI CROWE Primary Care [...] O MEDEX BRONZ E Jun 06, 2007 [id number] NEVIN WILLIAMSON PATIENT ANTHEM BCBS OF [place] MEDICARE SUPPLEMEN [place] PSUED O MEDEX BRONZ E Jun 06, 2007 [id number] NEVIN WILLIAMSON PATIENT ANTHEM BCBS OF [place] (BLUECARD) MEDICARE SUPPLEMEN [place] PSUED O MEDEX BRONZ E Jun 06, 2007 [id number] NEVIN WILLIAMSON [place]IENT [place] MEDEX BRONZ E Jun 06, 2007 [id number] [phone] NEVIN WILLIAMSON [place] MEDEX BRONZ E Jun 06, 2007 [id number] NEVIN WILLIAMSON PATIENT MEDICARE (WNR) MEDICARE (M) PART B Jun 06, 2007 PART B [id number] NEVIN WILLIAMSON PATIENT MEDICARE (WNR) MEDICARE (M) PART B Jun 06, 2007 PART B [id number] [phone] NEVIN WILLIAMSON PATIENT MEDICARE (WNR) MEDICARE (M) PART A Jan 04, 2003 PART A [id number] NEVIN WILLIAMSON PATIENT MEDICARE (WNR) MEDICARE (M) PART A Jan 04, 2003 PART A [id number] [id number] NEVIN WILLIAMSON PATIENT MEDICARE (WNR) MEDICARE (M) PART B Jan 04, 2003 PART B [id number] NEVIN WILLIAMSON PATIENT MEDICARE (WNR) MEDICARE (M) PART A Jan 04, 2003 PART A [id number] [phone] NEVIN WILLIAMSON PATIENT Selected Encounter This section includes the information on record at [place] for the Encounter. Date/Time Encounter Type Encounter Description Reason Pro vider Source Apr 22, 2024 01:42 PM Outpatient Encounter ADMIN PAT ACTIVTIES (MASNONCT) IHE Encounter Template Text not used by [place] Plan of Treatment: Future Appointments (+ 6 [...] 23, 2024 11:00 AM AM[place]ORY [place] [facility] [facility] Apr 24, 2024 01:45 PM AM[place] [facility] May 13, 2024 11:00 AM [place]ORY [place] [facility] Jun 23, 2024 10:30 AM AMBULATORY - NONE [place] [facility] [place] [facility] Jun 23, 2024 11:30 AM AM[place]ORY [place] [facility] Jun 30, 2024 10:00 AM [place] [facility] Aug 04, 2024 09:30 AM AM[place]ORY [place] [facility] Aug 12, 2024 11:00 AM [place] [facility] Aug 14, 2024 09:00 AM [place] [place] [facility] [place] [facility] Active, Pending, and Scheduled Orders This section includes a listing of several types of active, pending, and scheduled orders, including clinic medications orders, diagnostic test orders, procedure orders and consult orders; where the start date of the order is 45 days before the date of the Encounter or 45 days after the date of theEncounter. The data comes from all [place] treatment facilities. Test Date/Time Test Type Test Details Facility Name May 21, 2024 02:45 PM Consult Order COMMUNITY CARE-CARDIOLOGY Cons Cash On Delivery Clerk's Choice [facility] Social History: Smoking Status (Most current) [...] took place. Date/Time Current Smoking Status Comment [facility] it Jan 08, 2024 10:00 AM VA-TOBACCO FOR[facility]ER [facility] Tobacco Use History This section includes a history of the smoking, or tobacco-related health factors, that were collected on or before the date of the Encounter. The data comes from the [place] facility where the Encounter took place. Date/Time Smoking Status/Tobac co Use Comment Facility Jan 08, 2024 10:00 AM VA-TOBACCO QUIT 5 TO < 15 YRS [place] [facility] [place] [facility] May 03, 2022 01:00 PM VA-TOBACCO FORMER USER [place] [facility] May 03, 2022 01:00 PM VA-TOBACCO [...] PM CURRENT SMOKER [place] [facility] [place] [facility] Jan 24, 2018 01:52 PM QUIT TOBACCO USE IN PAST YEAR quit ciagarettes 3 months ago [place] [facility] [place] [facility] Encounter Notes: All associated encounter notes This section contains the clinical notes associated to the Encounter. Date/Time Encounter Note(s) Provider Source Apr 22, 2024 02:45 PM ADDENDUM: LOCAL TITLE: Addendum STANDARD TITLE: ADDENDUM DATE OF NOTE: APR 22, 2024@14:45:09 ENTRY DATE: APR 22, 2024@14:45:10 AUTHOR: RUBI CROWE COSIGNER: URGENCY: STATUS: COMPLETED ok for RSV vaccine- recommend getting it about 2 weeks after flu and covid. /catalina/ RUBI CROWE D.O. PHYSICIAN Signed: 04/22/2024 14:45 Receipt Acknowledged By: 04/23/2024 10:00 /es/ JERRY MCCARTNEY RN REGISTERED NURSE 04/22/2024 15:45 /es/ CONCETTA LYONS AMSA === --- Original Document --- 04/22/24 CCC: SCHEDULING ADMINISTRATION: Patient Demographics Patient Name: NEVIN WILLIAMSON Patient Primary Phone: [phone] Patient Primary Address: [address] [place] [address] Patient : 1940 Patient Age: 84 Call Back Number: [phone] Caller/Recipient Relation to Patient: Self Administrative Administrative Note Reason: Vaccine Request Administrative Note Comments: Patient is wondering if he needs to get or if he qualifies to get the RSV with his Covid and Flu shot. Either way, please call the patient to let him know about the RSV shot and to schedule the other shots with him. Thank you. IMPORTANT: This note was created by [facility] staff. Please do not alert the staff member by adding them as a signer for future communications. Alerts are not monitored by this user. /es/ RADHA FORD 1 [facility] AMSA Signed: 04/22/2024 13:43 Receipt Acknowledged By: 04/22/2024 14:33 /es/ AGUS KING REGISTERED NURSE for MARIA FERNANDA OLVERA 04/22/2024 14:12 /es/ JERRY MCCARTNEY RN REGISTERED NURSE 04/22/2024 ADDENDUM STATUS: COMPLETED ALERT TO PCP, please order RSV if you feel appropriate for this patient. Also please advise if should get 3 immunizations in one day /catalina/ JERRY MCCARTNEY, RN REGISTERED NURSE Signed: 04/22/2024 14:13 Receipt Acknowledged By: 04/22/2024 14:44 /es/ RUBI CROWE D.O. PHYSICIAN 04/22/2024 ADDENDUM STATUS: COMPLETED AMSA CALLED ON THE TELEPHONE FOR SCHEDULING,HOWEVER THE CALL DOES NOT RING AND A MESSAGE CANNOT BE LEFT FOR CALL BACK /catalina/ CONCETTA LYONS AMSA Signed: 04/22/2024 15:47 04/23/2024 ADDENDUM STATUS: UNSIGNED You may not VIEW this UNSIGNED Addendum. RUBI CROWE [facility] [place] [facility] Apr 22, 2024 02:12 PM ADDENDUM: LOCAL TITLE: Addendum STANDARD TITLE: ADDENDUM DATE OF NOTE: APR 22, 2024@14:12:39 ENTRY DATE: APR 22, 2024@14:12:39 AUTHOR: JERRY MCCARTNEY EXP COSIGNER: URGENCY: STATUS: COMPLETED ALERT TO PCP, please order RSV if you feel appropriate for this patient. Also please advise if should get 3 immunizations in one day /catalina/ JERRY MCCARTNEY RN REGISTERED NURSE Signed: 04/22/2024 14:13 Receipt Acknowledged By: 04/22/2024 14:44 /es/ RUBI CROWE D.O. PHYSICIAN === --- Original Document --- 04/22/24 CCC: SCHEDULING ADMINISTRATION: Patient Demographics Patient Name: NEVIN WILLIAMSON Patient Primary Phone: [phone] Patient Primary Address: [address] [place] [address] Patient : 1940 Patient Age: 84 Call Back Number: [phone] Caller/Recipient Relation to Patient: Self Administrative Administrative Note Reason: Vaccine Request Administrative Note Comments: Patient is wondering if he needs to get or if he qualifies to get the RSV with his Covid and Flu shot. Either way, please call the patient to let him know about the RSV shot and to schedule the other shots with him. Thank you. IMPORTANT: This note was created by [facility] staff. Please do not alert the staff member by adding them as a signer for future communications. Alerts are not monitored by this user. /es/ RADHA FORD 1 [facility] AMSA Signed: 04/22/2024 13:43 Receipt Acknowledged By: 04/22/2024 14:33 /es/ AGUS KING REGISTERED NURSE for MARIA FERNANDA MAY 04/22/2024 14:12 /es/ JERRY MCCARTNEY RN REGISTERED NURSE 04/22/2024 ADDENDUM STATUS: UNSIGNED You may not VIEW this UNSIGNED Addendum. JERRY MCCARTNEY [place] [facility] [place] [facility] Apr 22, 2024 01:42 PM ADMINISTRATIVE NOT E: LOCAL TITLE: CCC: SCHEDULING ADMINISTRATION STANDARD TITLE: ADMINISTRATIVE NOTE DATE OF NOTE: APR 22, 2024@13:42:51 ENTRY DATE: APR 22, 2024@13:42:51 AUTHOR: RADHA BECK COSIGNER: URGENCY: STATUS: COMPLETED CCC: SCHEDULING ADMINISTRATION Has ADDENDA Patient Demographics Patient Name: NEVIN WILLIAMSON Patient Primary Phone: [phone] Patient Primary [address]: [address] [place] [id number] Patient : 1940 Patient Age: 84 Call Back Number: [phone] Caller/Recipient Relation to Patient: Self Administrative Administrative Note Reason: Vaccine Request Administrative Note Comments: Patient is wondering if he needs to get or if he qualifies to get the RSV with his Covid and Flu shot. Either way, please call the patient to let him know about the RSV shot and to schedule the other shots with him. Thank you. IMPORTANT: This note was created by [facility] staff. Please do not alert the staff member by adding them as a signer for future communications. Alerts are not monitored by this user. /catalina/ RADHA LOAIZAN 1 [facility] AMSA Signed: 04/22/2024 13:43 Receipt Acknowledged By: 04/22/2024 14:33 /catalina/ AGUS KING REGISTERED NURSE for MARIA FERNANDA OLVERA 04/22/2024 14:12 /catalina/ JERRY MCCARTNEY RN REGISTERED NURSE 04/22/2024 ADDENDUM STATUS: COMPLETED ALERT TO PCP, please order RSV if you feel appropriate for this patient. Also please advise if should get 3 immunizations in one day /rowena MCCARTNEY RN REGISTERED NURSE Signed: 04/22/2024 14:13 Receipt Acknowledged By: 04/22/2024 14:44 /catalina/ RUBI CROWE D.O. PHYSICIAN 04/22/2024 ADDENDUM STATUS: COMPLETED ok for RSV vaccine- recommend getting it about 2 weeks after flu and covid. /catalina/ RUBI CROWE D.O. PHYSICIAN Signed: 04/22/2024 14:45 Receipt Acknowledged By: 04/23/2024 10:00 /rowena MCCARTNEY RN REGISTERED NURSE 04/22/2024 15:45 /rowena ARAMBULA 04/22/2024 ADDENDUM STATUS: ADIA ARAMBULA CALLED ON THE TELEPHONE FOR SCHEDULING,HOWEVER THE CALL DOES NOT RING AND A MESSAGE CANNOT BE LEFT FOR CALL BACK /rowena ARAMBULA Signed: 04/22/2024 15:47 04/23/2024 ADDENDUM STATUS: COMPLETED Spoke directly to provided him with flu and COVID vaccine clinics, he states he will come in to have those done; while here he will stop at the window and schedule an RN visit 2 weeks following Flu and COVID for RSV vaccine /catalina/ JERRY MCCARTNEY RN REGISTERED NURSE Signed: 04/23/2024 10:01 [facility]K [place] [facility]
--- OUTSIDE RECORDS SUMMARY | 2024-08-07 11:30 | XMS_ITS | Encounter Summary ---
Author Name [facility] [place] Organization [place] Address [address] [place] [address] Care Team Providers Care Manager Performance Improvement Name Role Phone RUBI CROWE Primary Care [...] O MEDEX BRONZ E Jun 06, 2007 [id number] [phone] NEVIN WILLIAMSON PATIENT ANTHEM BCBS OF [place] MEDICARE SUPPLEMEN [place] PSUED O MEDEX BRONZ E Jun 06, 2007 [id number] NEVIN WILLIAMSON PATIENT ANTHEM BCBS OF [place] (BLUECARD) MEDICARE SUPPLEMEN [place] PSUED O MEDEX BRONZ E Jun 06, 2007 [id number] [phone] NEVIN WILLIAMSON PATIENT [place] MEDEX BRONZ E Jun 06, 2007 [id number] [phone] NEVIN WILLIAMSON PAT[place] MEDEX BRONZ E Jun 06, 2007 [id number] [phone] NEVIN WILLIAMSON PATIENT MEDICARE (WNR) MEDICARE (M) PART B Jun 06, 2007 PART B [id number] NEVIN WILLIAMSON PATIENT MEDICARE (WNR) MEDICARE (M) PART B Jun 06, 2007 PART B [id number] NEVIN WILLIAMSON PATIENT MEDICARE (WNR) MEDICARE (M) PART A Jan 04, 2003 PART A [id number] NEVIN WILLIAMSON PATIENT MEDICARE (WNR) MEDICARE (M) PART A Jan 04, 2003 PART A [id number] NEVIN WILLIAMSON PATIENT MEDICARE (WNR) MEDICARE (M) PART B Jan 04, 2003 PART B [id number] [phone] NEVIN WILLIAMSON PATIENT MEDICARE (WNR) MEDICARE (M) PART A Jan 04, 2003 PART A [id number] [phone] NEVIN WILLIAMSON PATIENT Selected Encounter This section includes the information on record at [place] for the Encounter. Date/Time Encounter Type Encounter Description Reason Provider Source May 13, 2024 10:56 AM IMMUNIZATION ADMIN TELEPHONE PRIMARY CARE ICD-10-CM Z23. Encounter for immunization RUBI CROWE Encounter Template Text not used by [place] Assessments - Encounter Diagnoses This section includes the primary and secondary diagnoses documented for the Encounter. Date/Time Primary/Secondary Diagnosis Diagnosis Name Provider Source May 13, 2024 10:56 AM SECONDARY Encounter for immunization DEANGELO MCCARTNEY [facility] Plan of Treatment: Future Appointments (+ 6 months) and Future Tests (+/- 45 days) The Plan of Treatment section includes future care activities for the patient from all [place] treatmentfacilities. This section includes future appointments and future orders which are active, pending or scheduled. Future Appointments This section includes appointments that were scheduled to occur 6 months from the date of the Encounter, up to a maximum of 20 appointments. The data comes from all [place] treatment facilities. Appointment Date/Time Appointment Type Appointme nt Facility Name Jun 23, 2024 10:30 AM AMBULATORY - NONE [facility] Jun 23, 2024 11:30 AM AMBULATORY - MEDICINE [facility] Jun 30, 2024 10:00 AM AMBULATORY - MEDICINE [facility] Aug 04, 2024 09:30 AM [facility] Aug 12, 2024 11:00 AM [facility] Aug 14, 2024 09:00 AM AMBULATORY MEDICINE [facility] Active, Pending, and Scheduled Orders This section includes a listing of several types of active, pending, and scheduled orders, including clinic medications orders, diagnostic test orders, procedure orders and consult orders; where the start date of the order is 45 days before the date of the Encounter or 45 days after the date of theEncounter. The data comes from all [place] treatment facilities. Test Date/Time Test Type Test Details Facility Name May 21, 2024 02:45 PM Consult Order COMMUNITY CARE-CARDIOLOGY Cons Clinical Scientist's Choice [facility] Jun 23, 2024 12:35 PM Consult Order COMM[facility]ITY [facility]-PHYSICAL THERAPY Cons Clinical Scientist's [facility] Immunizations: All administered on the encounter date This section contains immunizations associated to the Encounter. Immunization Series Date Issued Reaction Comments RSV, BIVALENT, PROTEIN SUBUN IT RSVPREF, DILUENT RECONSTITUTED, 0.5 ML, PF 1 May 13, 2024 diluen t lot #[id number] Social History: Smoking Status (Most current) and Tobacco Use (All prior to encounter date) This section includes the most current, and the historical, smoking and tobacco- related health factors from the [place] facility where the Encounter took place. Current Smoking Status This section includes the most current smoking, or tobacco-related health factor, from the [place] facility where the Encounter took place. Date/Time Current Smoking Status Comment Yessica huizar Jan 08, 2024 10:00 AM VA-TOBACCO FORMER USER [facility] Tobacco Use History This section includes a history of the smoking, or tobacco-related health factors, that were collected on or before the date of the Encounter. The data comes from the [place] facility where the Encounter took place. Date/Time Smoking Status/Tobac co Use Comment Facility Jan 08, 2024 10:00 AM VA-TOBACCO QUIT 5 TO < 15 YRS [facility] [place] [facility] May 03, 2022 01:00 PM VA-TOBACCO FORMER USER [facility] [place] [facility] May 03, 2022 01:00 PM VA-TOBACCO QUIT 15 YRS OR MORE [facility] [place] [facility] May 17, 2021 09:00 AM VA-TOBACCO FORMER USER [facility] [place] [facility] May 17, 2021 09:00 AM VA-TOBACCO QUIT 15 YRS OR MORE [facility] [place] [facility] May 28, 2020 03:00 PM VA-TOBACCO FORMER USER [facility] [place] [facility] May 28, 2020 03:00 PM VA-TOBACCO QUIT 5 TO < 15 YRS [facility] [place] [facility] Oct 04, 2018 11:04 AM VA-TOBACCO FORMER USER [facility] [place] [facility] Oct 04, 2018 11:04 AM VA-TOBACCO QUIT 1 TO < 5 YRS [facility] [place] [facility] Jan 24, 2018 01:52 PM CURRENT SMOKER [facility] [place] [facility] Jan 24, 2018 01:52 PM QUIT TOBACCO USE IN PAST YEAR quit ciagarettes 3 months ago [facility] [place] [facility] Encounter Notes: All associated encounter notes This section contains the clinical notes associated to the Encounter. Date/Time Encounter Note(s) Provider Source May 21, 2024 01:49 PM ADMINISTRATIVE NOT E: LOCAL TITLE: FAX/MAIL RECEIVED STANDARD TITLE: ADMINISTRATIVE NOTE DATE OF NOTE: MAY 21, 2024@13:49 ENTRY DATE: MAY 21, 2024@13:49:20 AUTHOR: MARIA FERNANDA OLVERA EXP COSIGNER: URGENCY: STATUS: COMPLETED Document Received On: May Document Type: Other: referral request Date of Service: Apr Facility and or Provider: cardiology Contact Information: PCP of Record: RUBI CROWE Next visit with PCP: 06/19/2024 10:30 CWM/NO/ULTRASOUND 06/23/2024 10:30 NHM/ENDOCRINE 08/12/2024 11:00 CWM/NO/PODIATRY/NAIL 08/13/2024 11:00 CWM/NO/PACT EIGHT 08/14/2024 09:00 CWM/NO/OPTOMETRY/ALTHEA 12/11/2024 10:00 CWM/NO/DERMATOLOGY 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 received request for new cardio consult to be placed. consult placed, held for signature. /catalina/ MARIA FERNANDA OLVERA LPN License Practical Nurse Signed: 05/21/2024 13:50 MARIA FERNANDA OLVERA [facility] May 13, 2024 10:59 AM IMMUNIZATION NOTE: LOCAL TITLE: [place] IMMUNIZATION NOTE STANDARD TITLE: IMMUNIZATION NOTE DATE OF NOTE: MAY 13, 2024@10:59:36 ENTRY DATE: MAY 13, 2024@10:59:36 AUTHOR: ELIF MCCARTNEY EXP COSIGNER: URGENCY: STATUS: COMPLETED Administered: RSV, BIVALENT, PROTEIN SUBUNIT RSVPREF, DILUENT RECONSTITUTED, 0.5 ML, PF Date Administered: May 13, 2024 10:57 Series: Series 1 Lunchroom Attendant: [employer] Lot: [id number] Exp Date: Dec 03, 2024 ND: [id number] Admin Route/Site: INTRAMUSCULAR/LEFT DELTOID Dosage: 0.5mL Vaccine Information Statement(s): RSV (RESPIRATORY SYNCYTIAL VIRUS) VACCINE VIS May 24, 2023 ([place]) Order By: Policy Administered By: Elif Mccartney Comment: diluent lot #[id number] /catalina/ ELIF MCCARTNEY RN REGISTERED NURSE Signed: 05/13/2024 10:59 ELIF MCCARTNEY [facility]
--- OUTSIDE RECORDS SUMMARY | 2024-08-07 11:30 | XMS_ITS | Encounter Summary ---
Author Name Department of Vetera Affairs (MD) Organization Department of Vetera Affairs (MD) Address [address] [place] [address] Care Team Providers Care Poultry Breeder Name Role Phone RUBI CROWE Primary Care [...] O MEDEX BRONZ E Jun 06, 2007 [id number] NEVIN WILLIAMSON PATIENT ANTHEM BCBS OF [place] MEDICARE SUPPLEMEN SALVATORE PSUED O MEDEX BRONZ E Jun 06, 2007 [id number] [phone] NEVIN WILLIAMSON PATIENT ANTHEM BCBS OF [place] (BLUECARD) MEDICARE SUPPLEMEN [place] PSUED O MEDEX BRONZ E Jun 06, 2007 [id number] NEVIN WILLIAMSON PATIENT [place] MED[place] SUPPLEMEN [place] MEDEX BRONZ E Jun 06, 2007 [id number] NEVIN WILLIAMSON PATIENT [place] MED[place] SUPPLEMEN [place] MEDEX BRONZ E Jun 06, 2007 [id number] [phone] NEVIN WILLIAMSON PATIENT MEDICARE (WNR) MEDICARE (M) PART B Jun 06, 2007 PART B [id number] NEVIN WILLIAMSON PATIENT MEDICARE (WNR) MEDICARE (M) PART B Jun 06, 2007 PART B [id number] NEVIN WILLIAMSON PATIENT MEDICARE (WNR) MEDICARE (M) PART A Jan 04, 2003 PART A [id number] NEVIN WILLIAMSON PATIENT MEDICARE (WNR) MEDICARE (M) PART B Jan 04, 2003 PART B [id number] NEVIN WILLIAMSON PATIENT MEDICARE (WNR) MEDICARE (M) PART A Jan 04, 2003 PART A [id number] NEVIN WILLIAMSON PATIENT MEDICARE (WNR) MEDICARE (M) PART A Jan 04, 2003 PART A [id number] NEVIN WILLIAMSON PATIENT Selected Encounter This section includes the information on record at MD for the Encounter. Date/Time Encounter Type Encounter Description Reason Pro vider Source Jun 09, 2024 01:12 PM Outpatient Encounter TELEPHONE TRIAGE IHE Encounter Template Text not used by MD Plan of Treatment: Future Appointments (+ 6 months) and Future Tests (+/- 45 days) The Plan of Treatment section includes future care activities for the patient from all MD treatmentfacilities. This section includes future appointments and future orders which are active, pending or scheduled. Future Appointments This section includes appointments that were scheduled to occur 6 months from the date of the Encounter, up to a maximum of 20 appointments. The data comes from all MD treatment facilities. Appointment Date/Time Appointment Type Appointme nt Facility Name Jun 23, 2024 10:30 AM AMBULATORY - NONE [place] [facility] [place] [facility] Jun 23, 2024 11:30 AM AMBULATORY - MEDICINE [facility] [place] [facility] Jun 30, 2024 10:00 AM AMBULATORY - MEDICINE MD C [facility] [place] [facility] Aug 04, 2024 09:30 AM AMBULATORY - MEDICINE [facility] [place] [facility] Aug 12, 2024 11:00 AM AMBULATORY - MEDICINE MD [facility] [place] [facility] Aug 14, 2024 09:00 AM AMBULATORY - MEDICINE [facility] Active, Pending, and Scheduled Orders This section includes a listing of several types of active, pending, and scheduled orders, including clinic medications orders, diagnostic test orders, procedure orders and consult orders; where the start date of the order is 45 days before the date of the Encounter or 45 days after the date of theEncounter. The data comes from all MD treatment facilities. Test Date/Time Test Type Test Details Facility Name May 21, 2024 02:45 PM Consult Order COMMUNITY CARE-CARDIOLOGY Cons Fire Pilot's Choice [facility] Jun 23, 2024 12:35 PM Consult Order COMMUNITY CARE-PHYSICAL THERAPY Cons Fire Pilot's Choice [facility] Social History: Smoking Status (Most current) and Tobacco Use (All prior to encounter date) This section includes the most current, and the historical, smoking and tobacco- related health factors from the MD facility where the Encounter took place. Current Smoking Status This section includes the most current smoking, or tobacco-related health factor, from the MD facility where the Encounter took place. Date/Time Current Smoking Status Comment [facility] Jan 08, 2024 10:00 AM VA-TOBACCO FORMER USER [facility] Tobacco Use History This section includes a history of the smoking, or tobacco-related health factors, that were collected on or before the date of the Encounter. The data comes from the MD facility where the Encounter took place. Date/Time Smoking Status/Tobac co Use Comment Facility Jan 08, 2024 10:00 AM VA-TOBACCO QUIT 5 TO < 15 YRS [facility] [place] [facility] May 03, 2022 01:00 PM VA-TOBACCO FORMER USER MD [facility] [place] [facility] May 03, 2022 01:00 PM VA-TOBACCO QUIT 15 YRS OR MORE MD [facility] [place] [facility] May 17, 2021 09:00 AM VA-TOBACCO FORMER USER MD [facility] [place] [facility] May 17, 2021 09:00 AM VA-TOBACCO QUIT 15 YRS OR MORE [facility] [place] [facility] May 28, 2020 03:00 PM [facility] May 28, 2020 03:00 PM VA-TOBACCO QUIT 5 TO < 15 YRS [facility] Oct 04, 2018 11:04 AM VA-TOBACCO [facility] Oct 04, 2018 11:04 AM VA-TOBACCO QUIT 1 TO < 5 YRS [facility] Jan 24, 2018 01:52 PM CURRENT S[facility]ER [facility] Jan 24, 2018 01:52 PM QUIT TOBACCO USE IN PAST YEAR quit ciagarettes 3 months ago [facility] Radiology Reports: +/- 30 days of [...] the Encounter. The data comes from all MD treatment facilities. Date/Time Radiology Report Provider Source Jun 23, 2024 10:25 AM ULTRASOUND NECK (THYROID,HEAD,SOFT TISSUE): CLAYNEVIN L [id number] -1940 M Exm Date: JUN 23, 2024@10:25 Req Phys: JESUS KNIGHT Loc: NHM/ENDOCRINE (Req'g Loc) Img Loc: ULTRASOUND Service: Unknown [facility] [place] [address] (Case 20 COMPLETE) ULTRASOUND NECK (THYROID,HEAD,SOF(US Detailed) CPT:43133 Reason for Study: multinodular goiter Clinical History: Report Status: Verified Date Reported: JUN 23, 2024 Date Verified: JUN 23, 2024 Tobacco Shaker E-Sig:/ES/GUILLERMINA NUNES JR Report: Study: Thyroid ultrasound. Comparison: Thyroid ultrasound from January 21, 2024, June 19, 2023, June 01, 2022 and August 02, 2021. Findings: The right lobe of the thyroid measures 4.4 cm in long length x 2.3 cm in AP diameter x 1.9 cm in transverse diameter. Stable volume of 10 cc. Again seen is an interpolar 2.0 cm in greatest dimension solid, isoechoic, wider than tall, smoothly marginated nodule with no echogenic foci most recently measuring 1.9 cm in greatest dimension and measuring 1.6 cm in greatest dimension on the 2020 examination equaling TI-RADS 3: Mildly suspicious. FNA indicated if greater than or equal to 2.5 cm in greatest dimension. Sonographic follow-up recommended if greater than or equal to 1.5 cm in greatest dimension. No new right thyroid lobe nodule is identified. The thyroid isthmus is sonographically normal. The left lobe of the thyroid measures 3.9 cm in long length x 1.5 cm in AP diameter x 1.5 cm in transverse diameter. Volume of 5 cc is not significantly changed. Again seen is an interpolar lateral 0.6 cm in greatest dimension stable solid, hypoechoic, wider than tall, ill-defined nodule with punctate echogenic foci equaling TI-RADS 5: Highly suspicious. FNA if greater than or equal to 1.0 cm in greatest dimension. Thyroid ultrasound follow-up if greater than 0.5 cm in greatest dimension. No new left thyroid lobe nodule or mass is identified. No extrathyroidal nodules are identified. Impression: No significant interval change to the thyroid nodules, as described above. Normal volume is 7-11 cc/lobe. Volume = L x H x W x 0.52. Differences in technique can preclude direct comparisons. *TI-RADS: Ultrasound based management guidance of thyroid nodules. 0 points: cystic, anechoic, wider than tall, smooth border, comet tail artifact, spongiform. 1 point: mixed cystic and solid, hyperechoic, isoechoic, MACROcalcifications. 2 points: solid, hypoechoic, lobulated or irregular margins, peripheral rim calcifications. 3 points: very hypoechoic, taller than wide, extrathyroidal extension, microcalcifications. TR1 (0 points): Spongiform nodules. cysts. Benign, No FNA. No followup indicated. TR2 (2 points): Not suspicious, No FNA. Followup ultrasound 1, 3, and 5 years. TR3 (3 points): Mildly suspicious. FNA if > 2.5 cm, Follow-up if >1.5 cm. Followup ultrasound 1, 3, and 5 years. TR4 (4 to 6 points): Moderately Suspicious. FNA if >1.5 cm. Follow-up if > 1cm. Followup ultrasound every 1, 2, 3, and 5 years. TR5 (7 points or more): Highly Suspicious. FNA if > 1cm. Follow-up if > 0.5cm. Followup ultrasound every year. Features include solid hypoechoic nodule, solid hypoechoic component of the partially cystic nodule, WITH one or more of the following features: Irregular margins, microcalcifications, taller than wide shape, rim calcifications with small extrusive soft tissue component, evidence of extrathyroidal extension SIGNIFICANT CHANGE: is defined as 20% increase in at least 2 nodule dimensions or a greater than 50% increase in volume. * Reference: ACR Thyroid Imaging, Reporting and Data System (TI-RADS): White Paper of the TI-RADS Committee. Elias et al., Journal of the [employer] 2017;14:587-595. Primary Diagnostic Code: No immediate attention required Primary Interpreting Staff: GUILLERMINA NUNES JR, Radiologist (Tobacco Shaker) /GUILLERMINA MOTA JR [facility] Encounter Notes: All associated encounter notes This section contains the clinical notes associated to the Encounter. Date/Time Encounter Note(s) Provider Source Jun 09, 2024 01:12 PM RN PROGRESS NOTE: LOCAL TITLE: CCC: CLINICAL TRIAGE STANDARD TITLE: RN PROGRESS NOTE DATE OF NOTE: JUN 09, 2024@13:12:34 ENTRY DATE: JUN 09, 2024@13:12:34 AUTHOR: SABRA HINOJOSA COSIGNER: URGENCY: STATUS: COMPLETED CCC: CLINICAL TRIAGE Has ADDENDA Patient Demographics Patient Name: NEVIN WILLIASMON Patient Primary Address: [address] [place] [address] Patient Primary Phone: [phone] Patient : 1940 Patient Age: 84 Caller/Recipient Relation to Patient: Self Emergency Contact: tamiko VILLA Triage Summary Conducted triage/discussed symptoms Pain Score: 8 (Severe Pain) Utilized the Triage Tool: Yes Chief Complaint: Leg Pain System WHEN: Now Nurse's Recommendation / WHEN: Now System WHERE: Emergency department Nurse's Recommendation / WHERE: [facility] Patient Disposition Patient/Caregiver agrees to plan of care: No Patient WHERE: Refused Nursing Plan and Disposition Referred patient to higher level of care Instructed to go to Emergency Room (ER) Other course(s) of action Generated msg to PACT/Provider Provided guidance for worsening symptoms: *Caller/Patient* advised to call facilities MD Clinical Contact Center or seek immediate medical attention for new or worsening symptoms Alternative course of action Alternative courses of action: 911 Nurse Summary Nurse Summary: Received call from Janeth. has left leg pain, from his hip to his knee, for the last 5 days. At times has pain to his left calf. Pain is severe causing difficulty ambulating. Applying Asper cream without improvement. See [facility] for additional +/- signs & symptoms. Directed to seek care at the now at the nearest ER and [facility] is declining. Declining option of Tele-EC. [facility] is requesting to see his PCP and possibly a specialist for this concern. Information forwarded to PACT for review and follow up. Clinical Contact Center Codes Clinic/Location: V1 CWM PHONE [facility] RN Decision Support System Output: Triage Complete Triage Date: 06/09/2024, 01:06 PM Triage Note: Decision Support Tool Used: [facility] Phone Triage 09 Jun 2024 18:03:45 +0000 [facility] Demographics 84 y/o Male Results CC: Leg Pain Software suggested: Now Software suggested follow-up location: Emergency department Values and Measures Duration of CC: 5 Days Positive Responses HPI: leg pain, severe HPI: leg pain, worsening Negative Responses Denies: HPI: cast or splint, leg Denies: HPI: hip pain or swelling Denies: HPI: leg injury, within past 2 days Denies: HPI: leg pain, localized to ankle Denies: HPI: leg pain, localized to knee Denies: HPI: one leg is cool to touch Denies: HPI: pale or freeman discoloration in one leg IMPORTANT: This note was created by [facility] Clinical Contact Center staff. Please do not alert the staff member by adding them as a signer for future communications. Alerts are not monitored by this user. /es/ SABRA HINOJOSA RN Signed: 06/09/2024 13:12 Receipt Acknowledged By: 06/11/2024 07:18 /es/ MARIA FERNANDA OLVERA LPN License Practical Nurse 06/10/2024 11:16 /es/ JERRY MCCARTNEY RN REGISTERED NURSE 06/10/2024 ADDENDUM STATUS: COMPLETED Spoke directly with , he reports mostly left sided calf pain that makes it difficult to walk. He states often pain will start in left hip thigh and radiate into the calf. This has been happening for about a week worsening now. He does reports some weakness and fatigue. Denies erythema, edema or calf being warm to touch. Advised to seek emergent treatment in the ED. Provided [place] [employer] Phone number. (spouse on line as well) agreeable to go to ED now /es/ JERRY CMCARTNEY RN REGISTERED NURSE Signed: 06/10/2024 11:19 SABRA HINOJOSA [facility]
--- OUTSIDE RECORDS SUMMARY | 2024-08-07 11:30 | XMS_ITS | Encounter Summary ---
Author Name Department of [place] Organization [place] Address [address] [place] [address] Care Team Providers Care Trading Analyst Name Role Phone RUBI CROWE Primary Care [...] O MEDEX BRONZ E Jun [birth year], 2009 [id number] NEVNI WILLIAMSON PATIENT ANTHEM BCBS OF CT MEDICARE SUPPLEMEN SALVATORE PSUED O MEDEX BRONZ E Jun 06, 2007 [id number] NEVIN WILLIAMSON PATIENT ANTHEM BCBS OF CT (BLUECARD) MEDICARE SUPPLEMEN [place] PSUED O MEDEX BRONZ E Jun 06, 2007 [id number] [phone] NEVIN WILLIAMSON PATIENT [place]PP[place] MEDEX BRONZ E Jun 06, 2007 [id number] NEVIN WILLIAMSON [place] MEDEX BRONZ E Jun 06, 2007 [id number] NEVIN WILLIAMSON PATIENT MEDICARE (WNR) MEDICARE (M) PART B Jun 06, 2007 PART B [id number] NEVIN WILLIAMSON PATIENT MEDICARE (WNR) MEDICARE (M) PART B Jun 06, 2007 PART B [id number] NEVIN WILLIAMSON PATIENT MEDICARE (WNR) MEDICARE (M) PART A Jan 04, 2003 PART A [id number] NEVIN WILLIAMSON PATIENT MEDICARE (WNR) MEDICARE (M) PART A Jan 04, 2003 PART A [id number] [phone] NEVIN WILLIAMSON PATIENT MEDICARE (WNR) MEDICARE (M) PART B Jan 04, 2003 PART B [id number] [phone] NEVIN WILLIAMSON PATIENT MEDICARE (WNR) MEDICARE (M) PART A Jan 04, 2003 PART A [id number] [phone] NEVIN WILLIAMSON PATIENT Selected Encounter This section includes the information on record at [place] for the Encounter. Date/Time Encounter Type Encounter Description Reason Pro vider Source Jun 11, 2024 12:00 AM Outpatient Encounter EVENT (HISTORICAL) IHE Encounter Template Text not used by [place] Plan of Treatment: Future Appointments (+ 6 months) and Future Tests (+/- 45 days) The Plan of Treatment section includes future care activities for the patient from all [place] treatmentfacilities. This section includes future appointments and future orders which are active, pending or scheduled. Future Appointments This section includes appointments that were scheduled to occur 6 months from the date of the Encounter, up to a maximum of 20 appointments. The data comes from all IA treatment facilities. Appointment Date/Time Appointment Type Appointme nt Facility Name Jun 23, 2024 10:30 AM AMBULATORY - NONE [place] [facility] [place] [facility] Jun 23, 2024 11:30 AM AMBULATORY - MEDICINE [facility] [place] [facility] Jun 30, 2024 10:00 AM AMBULATORY - MEDICINE IA C [facility] [facility] Aug 04, 2024 09:30 AM AMBULATORY - MEDICINE IA C [facility] [place] [facility] Aug 12, 2024 11:00 AM AMBULATORY - MEDICINE IA C [facility] [place] [facility] Aug 14, 2024 09:00 AM AMBULATORY - MEDICINE [facility] Active, Pending, and Scheduled Orders This section includes a listing of several types of active, pending, and scheduled orders, including clinic medications orders, diagnostic test orders, procedure orders and consult orders; where the start date of the order is 45 days before the date of the Encounter or 45 days after the date of theEncounter. The data comes from all IA treatment facilities. Test Date/Time Test Type Test Details Facility Name May 21, 2024 02:45 PM Consult Order COMMUNITY CARE-CARDIOLOGY Cons Radiation Monitor's Choice [place] [facility] [place] [facility] Jun 23, 2024 12:35 PM Consult Order [facility]-PHYSICAL THERAPY Cons Radiation Monitor's Choice [facility] Social History: Smoking Status (Most current) and Tobacco Use (All prior to encounter date) This section includes the most current, and the historical, smoking and tobacco- related health factors from the [place] facility where the Encounter took place. Current Smoking Status This section includes the most current smoking, or tobacco-related health factor, from the [place] facility where the Encounter took place. Date/Time Current Smoking Status Comment [facility] Jan 08, 2024 10:00 AM VA-TOBACCO FORMER USER [facility] Tobacco Use History This section includes a history of the smoking, or tobacco-related health factors, that were collected on or before the date of the Encounter. The data comes from the [place] facility where the Encounter took place. Date/Time Smoking Status/Tobac co Use Comment Facility Jan 08, 2024 10:00 AM VA-TOBACCO QUIT 5 TO < 15 YRS [place] [facility] [place] [facility] May 03, 2022 01:00 PM VA-TOBACCO FORMER USER [place] [facility] [place] [facility] May 03, 2022 01:00 PM VA-TOBACCO QUIT 15 YRS OR MORE [place] [facility] [place] [facility] May 17, 2021 09:00 AM VA-TOBACCO FORMER USER [place] [facility] [place] [facility] May 17, 2021 09:00 AM VA-TOBACCO QUIT 15 YRS OR [facility] May 28, 2020 03:00 PM VA-TOBACCO FORMER [facility] May 28, 2020 03:00 PM VA-TOBACCO QUIT 5 TO < 15 YRS [facility] Oct 04, 2018 11:04 AM VA-TOBACCO [facility] Oct 04, 2018 11:04 AM VA-TOBACCO QUIT 1 TO < 5 YRS [facility] Jan 24, 2018 01:52 PM [facility] Jan 24, 2018 01:52 PM QUIT TOBACCO USE IN PAST YEAR quit ciagarettes 3 months ago [facility] Radiology Reports: +/- 30 days of [...] the Encounter. The data comes from all [place] treatment facilities. Date/Time Radiology Report Provider Source Jun 23, 2024 10:25 AM ULTRASOUND NECK (THYROID,HEAD,SOFT TISSUE): KIRILLCARINANEVIN Penny [id number] -1940 M Exm Date: JUN 23, 2024@10:25 Req Phys: JESUS KNIGHT Loc: NHM/ENDOCRINE (Req'g Loc) Img Loc: ULTRASOUND Service: [place] [address] (Case 20 COMPLETE) ULTRASOUND NECK (THYROID,HEAD,SOF(US Detailed) CPT:10383 Reason for Study: multinodular goiter Clinical History: Report Status: Verified Date Reported: JUN 23, 2024 Date Verified: JUN 23, 2024 Airline Mechanic E-Sig:/ES/GUILLERMINA NUNES JR Report: Study: Thyroid ultrasound. [...] (TI-RADS): White Paper of the TI-RADS Committee. Kiarasfloridalma et al., Journal of the [employer] 2017;14:587-595. Primary Diagnostic Code: No immediate attention required Primary Interpreting Staff: GUILLERMINA NUNES JR, Radiologist (Airline Mechanic) /GUILLERMINA MOTA JR [facility] Encounter Notes: All associated encounter notes This section contains the clinical notes associated to the Encounter. Date/Time Encounter Note(s) Provider Source Jun 11, 2024 12:00 AM NONVA NOTE: LOCAL TITLE: NON-VA HOSPITALIZATIONS/ER STANDARD TITLE: NONVA NOTE DATE OF NOTE: JUN 11, 2024 ENTRY DATE: JUN 12, 2024@14:24:03 AUTHOR: PERFECTO LIND EXP COSIGNER: URGENCY: STATUS: COMPLETED VistA Imaging - Scanned Document SCANNED DOCUMENT SIGNATURE NOT REQUIRED Electronically Filed: 06/12/2024 by: PERFECTO BREWSTER [facility] Jun 11, 2024 12:00 AM NONVA NOTE: LOCAL TITLE: NON-VA HOSPITALIZATIONS/ER STANDARD TITLE: NONVA NOTE DATE OF NOTE: JUN 11, 2024 ENTRY DATE: JUN 12, 2024@15:06:41 AUTHOR: PERFECTO LIND EXP COSIGNER: URGENCY: STATUS: COMPLETED VistA Imaging - Scanned Document SCANNED DOCUMENT SIGNATURE NOT REQUIRED Electronically Filed: 06/12/2024 by: JOSE G BREWSTERADALI TOVAR [facility] [facility] Jun 11, 2024 12:00 AM NONVA NOTE: LOCAL TITLE: NON-VA HOSPITALIZATIONS/ER STANDARD TITLE: NONVA NOTE DATE OF NOTE: JUN 11, 2024 ENTRY DATE: JUN 12, 2024@15:07:53 AUTHOR: PERFECTO LIND EXP COSIGNER: URGENCY: STATUS: COMPLETED VistA Imaging - Scanned Document SCANNED DOCUMENT SIGNATURE NOT REQUIRED Electronically Filed: 06/12/2024 by: PERFECTO BREWSTER [facility] [place] [facility] Jun 11, 2024 12:00 AM NONVA NOTE: LOCAL TITLE: NON-VA HOSPITALIZATIONS/ER STANDARD TITLE: NONVA NOTE DATE OF NOTE: JUN 11, 2024 ENTRY DATE: JUN 12, 2024@15:12:02 AUTHOR: PERFECTO LIND EXP COSIGNER: URGENCY: STATUS: COMPLETED VistA Imaging - Scanned Document SCANNED DOCUMENT SIGNATURE NOT REQUIRED Electronically Filed: 06/12/2024 by: PERFECTO BREWSTER [facility] [place] [facility] Jun 11, 2024 12:00 AM NONVA NOTE: LOCAL TITLE: NON-VA HOSPITALIZATIONS/ER STANDARD TITLE: NONVA NOTE DATE OF NOTE: JUN 11, 2024 ENTRY DATE: JUN 12, 2024@15:08:41 AUTHOR: PERFECTO LIND EXP COSIGNER: URGENCY: STATUS: COMPLETED VistA Imaging - Scanned Document SCANNED DOCUMENT SIGNATURE NOT REQUIRED Electronically Filed: 06/12/2024 by: PERFECTO BREWSTER [facility]
--- OUTSIDE RECORDS SUMMARY | 2024-08-07 11:30 | XMS_ITS ---
Author Name [facility] [place] Organization [facility] Address [address] [place] [id number] Care Team Providers Care Kennel Keeper Name Role Phone RUBI CROWE Primary Care [...] O MEDEX BRONZ E Jun 06, 2007 [id number] [phone] NEVIN WILLIAMSON PATIENT ANTHEM BCBS OF CT MEDICARE SUPPLEMEN [place]AT[place] PSUED O MEDEX BRONZ E Jun 06, 2007 [id number] NEVIN WILLIAMSON PATIENT ANTHEM BCBS OF CT (BLUECARD) MEDICARE SUPPLEMEN [place] PSUED O MEDEX BRONZ E Jun 06, 2007 [id number] NEVIN WILLIAMSON PATIENT [place] MEDIC[place] SUPPLEMEN [place] MEDEX BRONZ E Jun 06, 2007 [id number] NEVIN WILLIAMSON PATIENT [place] MEDICARE SUPPLEMEN [place] MEDEX BRONZ E Jun 06, 2007 [id number] [phone] NEVIN WILLIAMSON PATIENT MEDICARE (WNR) MEDICARE (M) PART B Jun 06, 2007 PART B [id number] NEVIN WILLIAMSON PATIENT MEDICARE (WNR) MEDICARE (M) PART B Jun 06, 2007 PART B [id number] NEVIN WILLIAMSON PATIENT MEDICARE (WNR) MEDICARE (M) PART A Jan 04, 2003 PART A [id number] NEVIN WILLIAMSON PATIENT MEDICARE (WNR) MEDICARE (M) PART A Jan 04, 2003 PART A [id number] NEVIN WILLIAMSON PATIENT MEDICARE (WNR) MEDICARE (M) PART B Jan 04, 2003 PART B [id number] NEVIN WILLIAMSON PATIENT MEDICARE (WNR) MEDICARE (M) PART A Jan 04, 2003 PART A [id number] NEVIN WILLIAMSON PATIENT Selected Encounter This section includes the information on record at [place] for the Encounter. Date/Time Encounter Type Encounter Description Reason Provider Source May 13, 2024 11:00 AM Outpatient Encounter PRIMARY CARE/MEDICINE RUBI CROWE Encounter Template Text not used by [place] [...] 23, 2024 10:30 AM AMBULATORY - NONE [place] [facility] [place] [facility] Jun 23, 2024 11:30 AM AMBULATORY - MEDICINE [place] [facility] Jun 30, 2024 10:00 AM AMBULATORY - MEDICINE [place] [facility] Aug 04, 2024 09:30 AM AMBULATORY - MEDICINE [place] [facility] [place] [place] [facility] Aug 12, 2024 11:00 AM AMBULATORY [place]ICINE [place] [facility] [place] [facility] Aug 14, 2024 09:00 AM [facility] [place] [facility] Active, Pending, and Scheduled Orders This section includes a listing of several types of active, pending, and scheduled orders, including clinic medications orders, diagnostic test orders, procedure orders and consult orders; where the start date of the order is 45 days before the date of the Encounter or 45 days after the date of theEncounter. The data comes from all [place] treatment facilities. Test Date/Time Test Type Test Details Facility Name May 21, 2024 02:45 PM Consult Order COMMUNITY CARE-CARDIOLOGY Cons Funeral Counselor's Choice [place] [facility] Jun 23, 2024 12:35 PM Consult Order COMMUNITY CARE-PHYSICAL THERAPY Cons Funeral Counselor's Choice [facility] Social History: Smoking Status (Most current) [...] took place. Date/Time Current Smoking Status Comment [facility] Jan 08, 2024 10:00 AM [place]-TOBACCO QUIT 5 TO < 15 YRS [facility] Tobacco Use History This section includes a history of the smoking, or tobacco-related health factors, that were collected on or before the date of the Encounter. The data comes from the [place] facility where the Encounter took place. Date/Time Smoking Status/Tobac co Use Comment Facility Jan 08, 2024 10:00 AM VA-TOBACCO QUIT 5 TO < 15 YRS [place] [facility] [place] [facility] May 03, 2022 01:00 PM VA-TOBACCO FORMER USER [place] [facility] [place] [facility] May 03, 2022 01:00 PM VA-TOBACCO QUIT 15 YRS OR MORE [place] [facility] [place] [facility] May 17, 2021 09:00 AM VA-TOBACCO FORMER USER [place] [facility] [place] [facility] May 17, 2021 09:00 AM VA-TOBACCO QUIT 15 YRS OR MORE [place] [facility] [place] [facility] May 28, 2020 03:00 PM VA-TOBACCO FORMER USER [facility] [place] [facility] May 28, 2020 03:00 PM VA-TOBACCO QUIT 5 TO < 15 YRS [facility] [place] [facility] Oct 04, 2018 11:04 AM VA-TOBACCO FORMER USER [place] [facility] [place] [facility] Oct 04, 2018 11:04 AM VA-TOBACCO QUIT 1 TO < 5 YRS [facility] [place] [facility] Jan 24, 2018 01:52 PM CURRENT SMOKER [facility] [place] [facility] Jan 24, 2018 01:52 PM QUIT TOBACCO USE IN PAST YEAR quit ciagarettes 3 months ago [place] [facility] [place] [facility] Encounter Notes: All associated encounter notes This section contains the clinical notes associated to the Encounter. Date/Time Encounter Note(s) Provider Source Jun 17, 2024 01:48 PM ADMINISTRATIVE NOT E: LOCAL TITLE: FAX/MAIL RECEIVED STANDARD TITLE: ADMINISTRATIVE NOTE DATE OF NOTE: JUN 17, 2024@13:48 ENTRY DATE: JUN 17, 2024@13:48:05 AUTHOR: MARIA FERNANDA OLVERA EXP COSIGNER: URGENCY: STATUS: COMPLETED Document Received On: Jun Document Type: Emergency Department Note Date of Service: Jun Facility and or Provider: [facility] Contact Information: PCP of Record: RUBI CROWE Next visit with PCP: 06/19/2024 10:30 CWM/NO/ULTRASOUND 06/23/2024 10:30 NHM/ENDOCRINE 08/12/2024 11:00 CWM/NO/PODIATRY/NAIL 08/13/2024 11:00 CWM/NO/PACT EIGHT 08/14/2024 09:00 CWM/NO/OPTOMETRY/ALTHEA 12/11/2024 10:00 CWM/NO/DERMATOLOGY DOCUMENT PROCESSOR AM Primary Care May keep copies of this document for up to 14 days and send the original for scanning. HPI - General Adult General Chief complaint: General Medical Stated complaint: GENERAL WEEKNESS Time Seen by Provider: 06/11/24 09:05 Source: patient, family (patient's and daughter) and EMS Mode of arrival: EMS Limitations: no limitatio ns History of Present Illness ED Provider: Marli Fish PA-C HPI narrative: 84-year-old male with a PMH of COPD, stenosls of R Internal carotid s/p stent, lschemlc cardiomyopathy, and hx inferior [place] not on blood thinners presents to the ED today with a chief complaint of bilatoral log pain and a fall thic morning whoro hi!; log!; did out from undor him and ho fel l back landing on his buttocks. His and his daughter are present at bedside who assisted with history. Patient states over the past few weeks he has been falling more and more while at home. He ambulates with a walker at baseline, Over the past few days his leg pain-has ?Lindy much worse which prompted him to call his PCP [place] the [place] who recommended he come to the ED to get ultrasound done of hes legs to rule out a DVT. He denies increased calf pain, warmtn or swelling. Denies LOC, denies HS. He has tried Tylenol at home with little help. Patient also is no longer on bloo d thinners because they caused him to bleed profusely through his nose. 11.clicving foctoro: none Exacerbating factors: none Associated symptoms: weakness Treatments prior to arrival: none Medical Decision Making MDM Narrative: Patient is an 84 year old assigned male at with a history of COPD and ischemic cardiomyopathy presenting to the emergency department today with bilateral lower leg weakness and frequent falls. Patient's physical exam was as noted 1n the physical exam portion at this note. bDth2iedt blood work was unremarKable. l--'dp7ygco urine showed no acute process. Patient's EKG was unremarkable. Patient's bilateral knee and chest x-rays showed no acute process. Patient's head and cervical spine CTs showed no acute process. Patient's bilateral lower leg US perez\l\Lion no acute prooccc. I explG.incd my phycioal exam findingc ac well ac all tect rccultc to the patient, the paticnt'c , and the patient's daughter. I answered all questions asked by the patient, the patient's , and the patient's daughter. stressed the importance of the patient taking his medication as directed (either prescribed or as the over the counter packaging recommends). I stressed the importance of the patient following up with his primary care provider and an 011nopedlc fmng3eam. 1 stressea me [id number] or me patient returning to al emergency [id number] [id number] If his symptoms were to worsen or if he were to develop any dizziness, shortness of breath, difficulty breathing, chest pain, blurry vision, loss of vision, nausea, vomiting, abdominal pain, fever, chills, back pain, or any other compla ints. Patient, the patient's , and the patient's daughter verbalized agreement and understanding with this treatment plan and discharge /catalina/ MARIA FERNANDA OLVERA LPN License Practical Nurse Signed: 06/17/2024 13:52 MARIA FERNANDA OLVERA [facility] May 23, 2024 03:25 PM ADMINISTRATIVE NOT E: LOCAL TITLE: FAX/MAIL RECEIVED STANDARD TITLE: ADMINISTRATIVE NOTE DATE OF NOTE: MAY 23, 2024@15:25 ENTRY DATE: MAY 23, 2024@15:25:51 AUTHOR: MARIA FERNANDA OLVERA EXP COSIGNER: URGENCY: STATUS: COMPLETED Document Received On: May Document Type: Other: REFERRAL REQUEST Date of Service: May Facility and or Provider: [facility] [place] Contact Information: PCP of Record: RUBI CROWE Next visit with PCP: 06/19/2024 10:30 CWM/NO/ULTRASOUND 06/23/2024 10:30 NHM/ENDOCRINE 08/12/2024 11:00 CWM/NO/PODIATRY/NAIL 08/13/2024 11:00 CWM/NO/PACT EIGHT 08/14/2024 09:00 CWM/NO/OPTOMETRY/ALTHEA 12/11/2024 10:00 CWM/NO/DERMATOLOGY DOCUMENT PROCESSOR AM Primary Care May keep copies of this document for up to 14 days and send the original for scanning. RECEIVED REFERRAL REQUEST FROM [facility] QUANG GARCIA DUE FOR YEARLY VISIT. CONSULT PLACED, HELD FOR SIGNATURE. /catalina/ MARIA FERNANDA OLVERA LPN License Practical Nurse Signed: 05/23/2024 15:27 MARIA FERNANDA OLVERA [employer]
--- OUTSIDE RECORDS SUMMARY | 2024-08-07 11:31 | XMS_ITS | Encounter Summary ---
Author Name [facility] [place] Organization [place] Address [address] [place] [id number] Care Team Providers Care Business And Financial Counsel Name Role Phone RUBI CROWE Primary Care [...] O MEDEX BRONZ E Jun 06, 2007 [id number] NEVIN WILLIAMSON PATIENT ANTHEM BCBS OF CT MEDICARE SUPPLEMEN [place]ATORE PSUED O MEDEX BRONZ E Jun 06, 2007 [id number] NEVIN WILLIAMSON PATIENT ANTHEM BCBS OF CT (BLUECARD) MEDICARE SUPPLEMEN [place] PSUED O MEDEX BRONZ E Jun 06, 2007 [id number] [phone] NEVIN WILLIAMSON PATIENT BCBS [place] MEDICARE SUPPLEMEN [place] MEDEX BRONZ E Jun 06, 2007 [id number] NEVIN WILLIAMSON PATIENT BCBS [place] MEDICARE SUPPLEMEN [place] MEDEX BRONZ E Jun 06, 2007 [id number] [phone] NEVIN WILLIAMSON PATIENT MEDICARE (WNR) MEDICARE (M) PART B Jun 06, 2007 PART B [id number] [phone] NEVIN WILLIAMSON PATIENT MEDICARE (WNR) MEDICARE (M) PART B Jun 06, 2007 PART B [id number] NEVIN WILLIAMSON PATIENT MEDICARE (WNR) MEDICARE (M) PART A Jan 04, 2003 PART A [id number] [phone] NEVIN WILLIAMSON PATIENT MEDICARE (WNR) MEDICARE (M) PART A Jan 04, 2003 PART A [id number] [phone] NEVIN WILLIAMSON PATIENT MEDICARE (WNR) MEDICARE (M) PART B Jan 04, 2003 PART B [id number] NEVIN WILLIAMSON PATIENT MEDICARE (WNR) MEDICARE (M) PART A Jan 04, 2003 PART A [id number] [phone] NEVIN WILLIAMSON PATIENT Selected Encounter This section includes the information on record at CT for the Encounter. Date/Time Encounter Type Encounter Description Reason Pro vider Source Jun 18, 2024 09:55 AM Outpatient Encounter ADMIN PAT ACTIVTIES (MASNONCT) [...] 23, 2024 10:30 AM AMBULATORY - NONE [place] [facility] [place] [facility] Jun 23, 2024 11:30 AM AMBULATORY - MEDICINE CT C [facility] [place] [facility] Jun 30, 2024 10:00 AM AMBULATORY - MEDICINE CT C [facility] [place] [facility] Aug 04, 2024 09:30 AM AMBULATORY [facility]ICINE [facility] Aug 12, 2024 11:00 AM AMBULATORY - MEDICINE [facility] Aug 14, 2024 09:00 AM AMBULATORY - MEDICINE [facility] December 11, 2024 10:00 AM AMBULATORY - MEDICINE [facility] December 11, 2024 11:00 AM AMBULATORY - MEDICINE [facility] Active, Pending, and Scheduled Orders This section includes a listing of several types of active, pending, and scheduled orders, including clinic medications orders, diagnostic test orders, procedure orders and consult orders; where the start date of the order is 45 days before the date of the Encounter or 45 days after the date of theEncounter. The data comes from all [place] treatment facilities. Test Date/Time Test Type Test Details Facility Name May 21, 2024 02:45 PM Consult Order COMMUNITY CARE-CARDIOLOGY Cons Credit Analysis Manager's [facility] Jun 23, 2024 12:35 PM Consult Order [facility]-PHYSICAL THERAPY Cons Credit Analysis [facility] Lab Results: +/- 30 days of the encounter This section includes the Chemistry and Hematology Lab Results on record with CT for the patient. Radiology Reports and Pathology Reports are provided separately, in subsequent sections. Lab Results This section contains the Chemistry/Hematology Results that were resulted 30 days before or 30 daysafter the date of the Encounter. Date/Time Source Result Type Result - Unit Interpretation Reference Range Comment Jul 15, 2024 10:48 AM [facility] THYROID T4 FREE(FT4) (WROX) Specimen Type: SERUM No comment entered. Ordering Provider: JESUS KNIGHT Report Released Date/Time: Jun 12, 2024 08:46 AM Reporting Lab: [facility] [address] [facility] [address] Performing Lab: [facility] [address] [facility] [address] THYROID T4 FREE(FT4) (WROX) 1.14 ng/dL 0.6-1.6 Jul 15, 2024 10:48 AM [facility] TSH Specimen Type: SERUM No comment entered. Ordering Provider: JESUS KNIGHT Report Released Date/Time: Jun 12, 2024 08:46 AM Reporting Lab: [facility] [address] [facility] [address] Performing Lab: [address] [address] TSH 0.41 u[IU]/mL 0.35-5.00 Jul 15, 2024 10:48 AM [facility] CBC Specimen Type: BLOOD No comment entered. Ordering Provider: JESUS KNIGHT Report Released Date/Time: Jun 12, 2024 08:46 AM Reporting Lab: [address] [address] Performing Lab: [address] [address] WBC 6.11 10*3/uL 4.50-11.00 RBC 4.31 10*6/uL 4.23-5.66 HGB 13.6 g/dL 12.8-17 HCT 40.2 39.2-50.4 MCV 93.3 fL 82-99 MCHC 33.8 g/dL 30.8-35.1 PLT 247 10*3/uL 140-360 RDW-CV 13.4 12.0-16.0 MCH 31.6 pg 26.2-32.6 Jul 15, 2024 10:48 AM [facility] BASIC METABOLIC PANEL (non-fasting) Specimen Type: SERUM No comment entered. Ordering Provider: JESUS KNIGHT Report Released Date/Time: Jun 12, 2024 08:46 AM Reporting Lab: [address] [address] Performing Lab: [address] [address] UREA NITROGEN 11 mg/dL 7-25 GLUCOSE 101 mg/dL H 65-100 SODIUM 141 mmol/L 135-145 POTASSIUM 4.7 mmol/L 3.5-5.0 CHLORIDE 107 mmol/L 100-110 CO2 27 meq/L 20-30 CREATININE, Serum 1.06 mg/dL 0.50-1.40 eGFR(CKD-EPI 2020) 68 mL/min >60 Social History: Smoking Status (Most [...] Facil it Jan 08, 2024 10:00 AM VA-TOBACCO FORMER USER CT [facility] [place] [facility] Tobacco Use History This section includes a history of the smoking, or tobacco-related health factors, that were collected on or before the date of the Encounter. The data comes from the [place] facility where the Encounter took place. Date/Time Smoking Status/Tobac co Use Comment [facility] Jan 08, 2024 10:00 AM VA-TOBACCO QUIT 5 TO < 15 YRS [facility] [place] [facility] May 03, 2022 01:00 PM VA-TOBACCO FORMER USER [facility] [place] [facility] May 03, 2022 01:00 PM VA-TOBACCO QUIT 15 YRS OR MORE [facility] [place] [facility] May 17, 2021 09:00 AM VA-TOBACCO FORMER USER [facility] [place] [facility] May 17, 2021 09:00 AM VA-TOBACCO QUIT 15 YRS OR MORE [facility] [place] [facility] May 28, 2020 03:00 PM VA-TOBACCO FORMER USER [facility] [place] [facility] May 28, 2020 03:00 PM VA-TOBACCO QUIT 5 TO < 15 YRS [facility] [place] [facility] Oct 04, 2018 11:04 AM VA-TOBACCO FORMER USER [facility] [place] [facility] Oct 04, 2018 11:04 AM VA-TOBACCO QUIT 1 TO < 5 YRS [facility] [place] [facility] Jan 24, 2018 01:52 PM CURRENT SMOKER [facility] [place] [facility] Jan 24, 2018 01:52 PM QUIT TOBACCO USE IN PAST YEAR quit ciagarettes 3 months ago [facility] [place] [facility] Radiology Reports: +/- 30 days [...] the Encounter. The data comes from all CT treatment facilities. Date/Time Radiology Report Provider Source Jun 23, 2024 10:25 AM ULTRASOUND NECK (THYROID,HEAD,SOFT TISSUE): KIRILLVIDALKIMONEVIN Penny [id number] -[id number] M Exm Date: JUN 23, 2024@10:25 Req Phys: JESUS KNIGHT Loc: NHM/ENDOCRINE (Req'g Loc) Img Loc: ULTRASOUND Service: Unknown CT [facility] [place] [facility] [place] [address] (Case 20 COMPLETE) ULTRASOUND NECK (THYROID,HEAD,SOF(US Detailed) CPT:50130 Reason for Study: multinodular goiter Clinical History: Report Status: Verified Date Reported: JUN 23, 2024 Date Verified: JUN 23, 2024 Production Mechanic E-Sig:/ES/GUILLERMINA NUNES JR Report: Study: Thyroid [...] (TI-RADS): White Paper of the TI-RADS Committee. Kiarasler et al., Journal of the [place] [employer] 2017;14:587-595. Primary Diagnostic Code: No immediate attention required Primary Interpreting Staff: GUILLERMINA NUNES JR, Radiologist (Production Mechanic) /GUILLERMINA MOTA JR [facility] Encounter Notes: All associated encounter notes This section contains the clinical notes associated to the Encounter. Date/Time Encounter Note(s) Provider Source Jun 18, 2024 09:55 AM ADMINISTRATIVE NOT E: LOCAL TITLE: CCC: SCHEDULING ADMINISTRATION STANDARD TITLE: ADMINISTRATIVE NOTE DATE OF NOTE: JUN 18, 2024@09:55:24 ENTRY DATE: JUN 18, 2024@09:55:24 AUTHOR: BIPIN BURGOS EXP COSIGNER: URGENCY: STATUS: COMPLETED CCC: SCHEDULING ADMINISTRATION Has ADDENDA Patient Demographics Patient Name: NEVNI WILLIAMSON Patient Primary Phone: [phone] Patient Primary Address: [address] [place] [address] Patient : 1940 Patient Age: 84 Caller/Recipient Relation to Patient: Self Scheduling Cannot Complete Scheduling Action Reason: Restricted / Unavailable Clinic Requested Service(s): Primary Care Patient Requests Appt on or around: 2024-06-19 00:00:00 Patient Expects Callback: Yes Scheduling Note Reason: Cannot Complete Appointment Request Scheduling Note Comments: Patient called to cancel and reschedule PCP apt this is a restricted clinic. Open Request: None of the above IMPORTANT: This note was created by [facility] Clinical Contact Center staff. Please do not alert the staff member by adding them as a signer for future communications. Alerts are not monitored by this user. /catalina/ BIPIN FORD 1 [facility] AMS[facility] Signed: 06/18/2024 09:55 Receipt Acknowledged By: 06/18/2024 13:55 /es/ MARIA FERNANDA OLVERA LPN License Practical Nurse 06/18/2024 15:21 /es/ CONCETTA LYONS [facility] 06/18/2024 ADDENDUM STATUS: COMPLETED [facility] CALLED ON TELEPHONE AND SCHEDULED AN APPT SET FOR June @ 11:30AM. /catalina/ CONCETTA ARAMBULA Signed: 06/18/2024 15:22 BIPIN BURGOS [facility] [place] [facility]
--- OUTSIDE RECORDS SUMMARY | 2024-08-07 11:31 | XMS_ITS | Encounter Summary ---
Author Name [facility] [place] Organization [facility] [place] [facility] [place] Address [address] [place] [address] Care Team Providers Care Car Icer Name Role Phone RUBI CROWE Primary Care [...] Policy Gonzalez's Name Patient's Relationship to Policy Gonzaelz ANTHEM MEDICARE SUPPLEMEN [place]AT[place] PSUED O MEDEX BRONZ E Jun 06, 2007 [id number] NEVIN WILLIAMSON PATIENT ANTHEM BCBS OF [place] MEDICARE SUPPLEMEN SALVATORE PSUED O MEDEX BRONZ E Jun 06, 2007 [id number] NEVIN WILLIAMSON PATIENT ANTHEM BCBS OF CT (BLUECARD) MEDICARE SUPPLEMEN [place]AT[place] PSUED O MEDEX BRONZ E Jun 06, 2007 [id number] NEVIN WILLIAMSON PATIENT [place]BS [place] MEDICARE SUPPLEMEN [place] MEDEX BRONZ E Jun 06, 2007 [id number] NEVIN WILLIAMSON PATIENT BCBS [place] MEDICARE SUPPLEMEN [place]AT[place] MEDEX BRONZ E Jun 06, 2007 [id number] NEVIN WILLIAMSON PATIENT MEDICARE (WNR) MEDICARE (M) PART B Jun 06, 2007 PART B [id number] NEVIN WILLIAMSON PATIENT MEDICARE (WNR) MEDICARE (M) PART B Jun 06, 2007 PART B [id number] [phone] NEVIN WILLIAMSON PATIENT MEDICARE (WNR) MEDICARE (M) PART A Jan 04, 2003 PART A [id number] NEVIN WILLIAMSON PATIENT MEDICARE (WNR) MEDICARE (M) PART A Jan 04, 2003 PART A [id number] NEVIN WILLIAMSON PATIENT MEDICARE (WNR) MEDICARE (M) PART B Jan 04, 2003 PART B [id number] NEVIN WILLIAMSON PATIENT MEDICARE (WNR) MEDICARE (M) PART A Jan 04, 2003 PART A [id number] [phone] NEVIN WILLIAMSON PATIENT Selected Encounter This section includes the information on record at [place] for the Encounter. Date/Time Encounter Type Encounter Description Reason Pro vider Source Jun 23, 2024 07:38 AM Outpatient Encounter ADMIN PAT ACTIVTIES (MASNONCT) IHE Encounter Template Text not used by ME Plan of Treatment: Future Appointments (+ 6 months) and Future Tests (+/- 45 days) The Plan of Treatment section includes future care activities for the patient from all [place] treatmentfacilities. This section includes future appointments and future orders which are active, pending or scheduled. Future Appointments This section includes appointments that were scheduled to occur 6 months from the date of the Encounter, up to a maximum of 20 appointments. The data comes from all [place] treatment facilities. Appointment Date/Time Appointment Type Appointme nt Facility Name Jun 30, 2024 10:00 AM AMBULATORY - MEDICINE [facility] [place] [facility] Aug 04, 2024 09:30 AM AMBULATORY - MEDICINE [facility] [facility] Aug 12, 2024 11:00 AM AMBULATORY - MEDICINE [facility] [facility] Aug 14, 2024 09:00 AM AM[facility]ULATORY [facility]ICINE [facility] [place] [facility] December 11, 2024 10:00 AM AMBULATORY - MEDICINE [facility] December 11, 2024 11:00 AM AMBULATORY - MEDICINE [facility] Active, Pending, and Scheduled Orders This section includes a listing of several types of active, pending, and scheduled orders, including clinic medications orders, diagnostic test orders, procedure orders and consult orders; where the start date of the order is 45 days before the date of the Encounter or 45 days after the date of theEncounter. The data comes from all [place] treatment facilities. Test Date/Time Test Type Test Details Facility Name May 21, 2024 02:45 PM Consult Order [facility]ARDIOLOGY Cons Life Agent's Choice [place] [facility] Jun 23, 2024 12:35 PM Consult Order [facility]-PHYSICAL THERAPY Cons Life Agent[facility] Lab Results: +/- 30 days of the encounter This section includes the Chemistry and Hematology Lab Results on record with [place] for the patient. Radiology Reports and Pathology Reports are provided separately, in subsequent sections. Lab Results This section contains the Chemistry/Hematology Results that were resulted 30 days before or 30 daysafter the date of the Encounter. Date/Time Source Result Type Result - Unit Interpretation Reference Range Comment Jul 15, 2024 10:48 AM [facility] THYROID T4 FREE(FT4) (WROX) Specimen Type: SERUM No comment entered. Ordering Provider: JESUS KNIGHT Report Released Date/Time: Jun 12, 2024 08:46 AM Reporting Lab: [facility] [address] [facility] [address] Performing Lab: [facility] [address] [facility] [address] THYROID T4 FREE(FT4) (WROX) 1.14 ng/dL 0.6-1.6 Jul 15, 2024 10:48 AM [facility] TSH Specimen Type: SERUM No comment entered. Ordering Provider: JESUS KNIGHT Report Released Date/Time: Jun 12, 2024 08:46 AM Reporting Lab: [facility] [address] [facility] [address] Performing Lab: [address] [address] TSH 0.41 u[IU]/mL 0.35-5.00 Jul 15, 2024 10:48 AM [facility] BASIC METABOLIC PANEL (non-fasting) Specimen Type: SERUM No comment entered. Ordering Provider: JESUS KNIGHT Report Released Date/Time: Jun 12, 2024 08:46 AM Reporting Lab: [address] [address] Performing Lab: [address] [address] UREA NITROGEN 11 mg/dL 7-25 GLUCOSE 101 mg/dL H 65-100 SODIUM 141 mmol/L 135-145 POTASSIUM 4.7 mmol/L 3.5-5.0 CHLORIDE 107 mmol/L 100-110 CO2 27 meq/L 20-30 CREATININE, Serum 1.06 mg/dL 0.50-1.40 eGFR(CKD-EPI 2020) 68 mL/min >60 Jul 15, 2024 10:48 AM [facility] CBC Specimen Type: BLOOD No comment entered. Ordering Provider: JESUS KNIGHT Report Released Date/Time: Jun 12, 2024 08:46 AM Reporting Lab: [address] [address] Performing Lab: [address] [address] WBC 6.11 10*3/uL 4.50-11.00 RBC 4.31 10*6/uL 4.23-5.66 HGB 13.6 g/dL 12.8-17 HCT 40.2 39.2-50.4 MCV 93.3 fL 82-99 MCHC 33.8 g/dL 30.8-35.1 PLT 247 10*3/uL 140-360 RDW-CV 13.4 12.0-16.0 MCH 31.6 pg 26.2-32.6 Vital Signs: All taken on the encounter date This section contains inpatient and outpatient Vital Signs collected on the date of the Encounter. Date/Time Temperature Pulse Blood Pressure Respiratory Rate SP02 Pain Height Weight Body Mass Index Source Jun 23, 2024 11:41 AM 97.8 63 136/71 16 93 [place] [facility] Social History: Smoking Status (Most current) and Tobacco Use (All prior to encounter date) This section includes the most current, and the historical, smoking and tobacco- related health factors from the [place] facility where the Encounter took place. Current Smoking Status This section includes the most current smoking, or tobacco-related health factor, from the [place] facility where the Encounter took place. Date/Time Current Smoking Status Comment [facility] Jan 08, 2024 10:00 AM VA-TOBACCO QUIT 5 TO < 15 YRS [facility] Tobacco Use History This section includes a history of the smoking, or tobacco-related health factors, that were collected on or before the date of the Encounter. The data comes from the [place] facility where the Encounter took place. Date/Time Smoking Status/Tobac co Use Comment [facility] Jan 08, 2024 10:00 AM VA-TOBACCO QUIT 5 TO < 15 YRS [facility] [place] [facility] May 03, 2022 01:00 PM VA-TOBACCO FORMER USER [facility] [place] [facility] May 03, 2022 01:00 PM VA-TOBACCO QUIT 15 YRS OR MORE [facility] [place] [facility] May 17, 2021 09:00 AM VA-TOBACCO FORMER USER [facility] [place] [facility] May 17, 2021 09:00 AM VA-TOBACCO QUIT 15 YRS OR MORE [facility] [place] [facility] May 28, 2020 03:00 PM VA-TOBACCO FORMER USER [facility] [place] [facility] May 28, 2020 03:00 PM VA-TOBACCO QUIT 5 TO < 15 YRS [facility] [place] [facility] Oct 04, 2018 11:04 AM VA-TOBACCO FORMER USER [facility] [place] [facility] Oct 04, 2018 11:04 AM VA-TOBACCO QUIT 1 TO < 5 YRS [facility] [place] [facility] Jan 24, 2018 01:52 PM CURRENT SMOKER [facility] [place] [facility] Jan 24, 2018 01:52 PM QUIT TOBACCO USE IN PAST YEAR quit ciagarettes 3 months ago [facility] Radiology Reports: +/- 30 days of [...] the Encounter. The data comes from all [place] treatment facilities. Date/Time Radiology Report Provider Source Jun 23, 2024 10:25 AM ULTRASOUND NECK (THYROID,HEAD,SOFT TISSUE): NEVIN WILLIAMSON [id number] -1940 M Exm Date: JUN 23, 2024@10:25 Req Phys: JESUS KNIGHT Loc: NHM/ENDOCRINE (Req'g Loc) Img Loc: ULTRASOUND Service: Unknown [facility] [place] [id number] (Case 20 COMPLETE) ULTRASOUND NECK (THYROID,HEAD,SOF(US Detailed) CPT:24061 Reason for Study: multinodular goiter Clinical History: Report Status: Verified Date Reported: JUN 23, 2024 Date Verified: JUN 23, 2024 Stone And Plate Preparer Apprentice E-Sig:/ES/GUILLERMINA NUNES JR Report: Study: Thyroid ultrasound. [...] Committee. Elias et al., Journal of the [place] [employer] 2017;14:587-595. Primary Diagnostic Code: No immediate attention required Primary Interpreting Staff: GUILLERMINA NUNES JR, Radiologist (Stone And Plate Preparer Apprentice) /GUILLERMINA MOTA JR [facility] Encounter Notes: All associated encounter notes This section contains the clinical notes associated to the Encounter. Date/Time Encounter Note(s) Provider Source Jun 23, 2024 07:38 AM ADMINISTRATIVE NOTE: LOCAL TITLE: CCC: SCHEDULING ADMINISTRATION STANDARD TITLE: ADMINISTRATIVE NOTE DATE OF NOTE: JUN 23, 2024@07:38 ENTRY DATE: JUN 23, 2024@07:38:42 AUTHOR: OSMANY YANES EXP COSIGNER: URGENCY: STATUS: COMPLETED [place] contacted [facility] to verify his appointment. Successfully verified. /catalina/ OSMANY YANES [facility] AMSA Signed: 06/23/2024 07:39 OSMANY YANES [facility]
--- OUTSIDE RECORDS SUMMARY | 2024-08-07 11:31 | XMS_ITS | Encounter Summary ---
Author Name [facility] [place] Address [address] [place] [address] Care Team Providers Care Hand Spinner Name Role Phone RUBI CROEW Primary Care Provider Unavailabl harini Insurance Providers: [...] O MEDEX BRONZ E Jun 06, 2007 [id number] [phone] NEVIN WILLIAMSON PATIENT ANTHEM BCBS OF [place] MEDICARE SUPPLEMEN [place]ORE PSUED O MEDEX BRONZ E Jun 06, 2007 [id number] [phone] NEVIN WILLIAMSON PATIENT ANTHEM BCBS OF [place] (BLUECARD) MEDICARE SUPPLEMEN [place] PSUED O MEDEX BRONZ E Jun 06, 2007 [id number] NEVIN WILLIAMSON PATIENT [place] SUPPLEMEN [place] MEDEX BRONZ E Jun 06, 2007 [id number] [phone] NEVIN WILLIAMSON PATIENT [place] MED[place] SUPPLEMEN [place] MEDEX BRONZ E Jun 06, 2007 [id number] NEVIN WILLIAMSON PATIENT MEDICARE (WNR) MEDICARE (M) PART B Jun 06, 2007 PART B [id number] NEVIN WILLIAMSON PATIENT MEDICARE (WNR) MEDICARE (M) PART B Jun 06, 2007 PART B [id number] [phone] NEVIN WILLIAMSON PATIENT MEDICARE (WNR) MEDICARE (M) PART A Jan 04, 2003 PART A [id number] NEVIN WILLIAMSON PATIENT MEDICARE (WNR) MEDICARE (M) PART A Jan 04, 2003 PART A [id number] [phone] NEVIN WILLIAMSON PATIENT MEDICARE (WNR) MEDICARE (M) PART B Jan 04, 2003 PART B [id number] NEVIN WILLIAMSON PATIENT MEDICARE (WNR) MEDICARE (M) PART A Jan 04, 2003 PART A [id number] [phone] NEVIN WILLIAMSON PATIENT Selected Encounter This section includes the information on record at [place] for the Encounter. Date/Time Encounter Type Encounter Description Reason Pro vider Source Jul 16, 2024 01:23 PM Outpatient Encounter ADMIN PAT ACTIVTIES (MASNONCT) IHE Encounter Template Text not used by [place] Plan of Treatment: Future Appointments (+ 6 months) and Future Tests (+/- 45 days) The Plan of Treatment section includes future care activities for the patient from all [place] treatmentfacilities. This section includes future appointments and future orders which are active, pending or scheduled. Future Appointments This section includes appointments that were scheduled to occur 6 months from the date of the Encounter, up to a maximum of 20 appointments. The data comes from all [place] treatment facilities. Appointment Date/Time Appointment Type Appointme nt Facility Name Aug 04, 2024 09:30 AM AMBULATORY - MEDICINE [facility] [place] [facility] Aug 12, 2024 11:00 AM AMBULATORY - MEDICINE [facility] [place] [facility] Aug 14, 2024 09:00 AM AMBULATORY - MEDICINE [facility] [place] [facility] December 11, 2024 10:00 AM AMBULATORY - MEDICINE [facility] [place] [facility] December 11, 2024 11:00 AM [facility] Active, Pending, and Scheduled Orders This section includes a listing of several types of active, pending, and scheduled orders, including clinic medications orders, diagnostic test orders, procedure orders and consult orders; where the start date of the order is 45 days before the date of the Encounter or 45 days after the date of theEncounter. The data comes from all [place] treatment facilities. Test Date/Time Test Type Test Details Facility Name Jun 23, 2024 12:35 PM Consult Order [facility]-PHYSICAL THERAPY Cons Appliance Tester's Choice [facility] Lab Results: +/- 30 days of the encounter This section includes the Chemistry and Hematology Lab Results on record with [place] for the patient. Radiology Reports and Pathology Reports are provided separately, in subsequent sections. Lab Results This section contains the Chemistry/Hematology Results that were resulted 30 days before or 30 daysafter the date of the Encounter. Date/Time Source Result Type Result - Unit Interpretation Reference Range Comment Jul 15, 2024 10:48 AM [facility] THYROID T4 FREE(FT4) (WROX) Specimen Type: SERUM No comment entered. Ordering Provider: JESUS KNIGHT Report Released Date/Time: Jun 12, 2024 08:46 AM Reporting Lab: [facility] [address] [facility] [address] Performing Lab: [facility] [address] [facility] [address] THYROID T4 FREE(FT4) (WROX) 1.14 ng/dL 0.6-1.6 Jul 15, 2024 10:48 AM [facility] TSH Specimen Type: SERUM No comment entered. Ordering Provider: JESUS KNIGHT Report Released Date/Time: Jun 12, 2024 08:46 AM Reporting Lab: [facility] [address] [facility] [address] Performing Lab: [facility] [address] [facility] [address] TSH 0.41 u[IU]/mL 0.35-5.00 Jul 15, 2024 10:48 AM [facility] CBC Specimen Type: BLOOD No comment entered. Ordering Provider: JESUS KNIGHT Report Released Date/Time: Jun 12, 2024 08:46 AM Reporting Lab: [facility] [address] [facility] [address] Performing Lab: [address] [address] WBC 6.11 10*3/uL 4.50-11.00 RBC 4.31 10*6/uL 4.23-5.66 HGB 13.6 g/dL 12.8-17 HCT 40.2 39.2-50.4 MCV 93.3 fL 82-99 MCHC 33.8 g/dL 30.8-35.1 PLT 247 10*3/uL 140-360 RDW-CV 13.4 12.0-16.0 MCH 31.6 pg 26.2-32.6 Jul 15, 2024 10:48 AM [facility] BASIC METABOLIC PANEL (non-fasting) Specimen Type: SERUM No comment entered. Ordering Provider: JESUS KNIGHT Report Released Date/Time: Jun 12, 2024 08:46 AM Reporting Lab: [address] [address] Performing Lab: [address] [address] UREA NITROGEN 11 mg/dL 7-25 GLUCOSE 101 [...] and tobacco- related health factors from the [place] facility where the Encounter took place. Current Smoking Status This section includes the most current smoking, or tobacco-related health factor, from the [place] facility where the Encounter took place. Date/Time Current Smoking Status Comment [facility] Jan 08, 2024 10:00 AM VA-TOBACCO FORMER USER [place] [facility] Tobacco Use History This section includes a history of the smoking, or tobacco-related health factors, that were collected on or before the date of the Encounter. The data comes from the [place] facility where the Encounter took place. Date/Time Smoking Status/Tobac co Use Comment Facility Jan 08, 2024 10:00 AM VA-TOBACCO QUIT 5 TO < 15 YRS [facility] [place] [facility] May 03, 2022 01:00 PM VA-TOBACCO FORMER USER [place] [facility] [place] [facility] May 03, 2022 01:00 PM VA-TOBACCO QUIT 15 YRS OR MORE [place] [facility] [place] [facility] May 17, 2021 09:00 AM VA-TOBACCO FORMER USER [place] [facility] [place] [facility] May 17, 2021 09:00 AM VA-TOBACCO QUIT 15 YRS OR MORE [place] [facility] May 28, 2020 03:00 PM VA-TOBACCO FORMER USER [place] [facility] [place] [facility] May 28, 2020 03:00 PM VA-TOBACCO QUIT 5 TO < 15 YRS [place] [facility] Oct 04, 2018 11:04 AM VA-TOBACCO FORMER USER [place] [facility] Oct 04, 2018 11:04 AM VA-TOBACCO QUIT 1 TO < 5 YRS [place] [facility] Jan 24, 2018 01:52 PM CURRENT SMOKER [place] [facility] [place] [facility] Jan 24, 2018 01:52 PM QUIT TOBACCO USE IN PAST YEAR quit ciagarettes 3 months ago [place] [facility] Radiology Reports: +/- 30 days of [...] the Encounter. The data comes from all [place] treatment facilities. Date/Time Radiology Report Provider Source Jun 23, 2024 10:25 AM ULTRASOUND NECK (THYROID,HEAD,SOFT TISSUE): NEVIN WILLIAMSON [id number] -[id number] M Ex Date: JUN 23, 2024@10:25 Req Phys: JESUS KNIGHT Loc: NHM/ENDOCRINE (Req'g Loc) Img Loc: ULTRASOUND Service: [place] [address] (Case 20 COMPLETE) ULTRASOUND NECK (THYROID,HEAD,SOF(US Detailed) CPT:23691 Reason for Study: multinodular goiter Clinical History: Report Status: Verified Date Reported: JUN 23, 2024 Date Verified: JUN 23, 2024 Elementary Ell Teacher E-Sig:/ES/GUILLERMINA NUNES JR Report: Study: Thyroid ultrasound. [...] Committee. Kiarasler et al., Journal of the [place] [employer] 2017;14:587-595. Primary Diagnostic Code: No immediate attention required Primary Interpreting Staff: GUILLERMINA NUNES JR, Radiologist (Elementary Ell Teacher) /GUILLERMINA OMTA JR [place] [facility] Encounter Notes: All associated encounter notes This section contains the clinical notes associated to the Encounter. Date/Time Encounter Note(s) Provider Source Jul 16, 2024 01:23 PM MEDICATION MGT NOT E: LOCAL TITLE: MEDICATION RENEWAL STANDARD TITLE: MEDICATION MGT NOTE DATE OF NOTE: JUL 16, 2024@13:23 ENTRY DATE: JUL 16, 2024@13:23:18 AUTHOR: ROSANA KHAN EXP COSIGNER: URGENCY: STATUS: COMPLETED Hello we have a requesting medication renewal for mailing please please renew if appropriate Active Outpatient Medications (including Supplies): Active Outpatient Medications Status ====== [phone] [id number]$ METOPROLOL SUCCINATE 25MG SA TAB 90 E> 05-30 08-30 0 90 [phone] [id number]$ TAMSULOSIN HCL 0.4MG CAP 90 E> 07-04 09-16 0 90 10 [id number]$ LEVETIRACETAM 250MG TAB 90 E> 07-04 10-24 0 90 7 [id number]$ ISOSORBIDE MONONITRATE 30MG SA TAB 90 E> 05-30 10-24 0 90 /es/ ROSANA KHAN ENTRY LEVEL MACHINE OPERATOR Signed: 07/16/2024 13:29 Receipt Acknowledged By: 07/16/2024 14:23 /catalina/ RUBI CROWE D.O. PHYSICIAN ROSANA KHAN [place] [facility]
--- OUTSIDE RECORDS SUMMARY | 2024-08-07 11:31 | XMS_ITS | Encounter Summary ---
Author Name [facility] of Vetera ns Affairs ([place]) Organization Department of Vetera Affairs ([place]) Address [address] [place] [id number] Care Team Providers Care Director Of Curriculum And Instruction Name Role Phone RUBI CROWE Primary Care [...] O MEDEX BRONZ E Jun 06, 2007 [id number] NEVIN WILLIAMSON PATIENT ANTHEM BCBS OF [place] MEDICARE SUPPLEMEN SALVATORE PSUED O MEDEX BRONZ E Jun 06, 2007 [id number] [phone] NEVIN WILLIAMSON PATIENT ANTHEM BCBS OF [place] (BLUECARD) MEDICARE SUPPLEMEN SALVATORE PSUED O MEDEX BRONZ E Jun 06, 2007 [id number] NEVIN WILLIAMSON PATIENT [place] MEDIC[place] SUPPLEMEN SALVATORE MEDEX BRONZ E Jun 06, 2007 [id number] NEVIN WILLIAMSON [place] MEDEX BRONZ E Jun 06, 2007 [id number] NEVIN WILLIAMSON PATIENT MEDICARE (WNR) MEDICARE (M) PART B Jun 06, 2007 PART B [id number] NEVIN WILLIAMSON PATIENT MEDICARE (WNR) MEDICARE (M) PART B Jun 06, 2007 PART B [id number] NEVIN WILLIAMSON PATIENT MEDICARE (WNR) MEDICARE (M) PART A Jan 04, 2003 PART A [id number] [phone] NEVIN WILLIAMSON PATIENT MEDICARE (WNR) MEDICARE (M) PART A Jan 04, 2003 PART A [id number] NEVIN WILLIAMSON PATIENT MEDICARE (WNR) MEDICARE (M) PART B Jan 04, 2003 PART B [id number] NEVIN WILLIAMSON PATIENT MEDICARE (WNR) MEDICARE (M) PART A Jan 04, 2003 PART A [id number] NEVIN WILLIAMSON PATIENT Selected Encounter This section includes the information on record at ID for the Encounter. Date/Time Encounter Type Encounter Description Reason Pro vider Source Jun 13, 2024 10:32 AM Outpatient Encounter ADMIN PAT ACTIVTIES (MASNONCT) [...] 23, 2024 10:30 AM AMBULATORY - NONE [place] [facility] [place] [facility] Jun 23, 2024 11:30 AM AMBULATORY - MEDICINE ID C [facility] [place] [facility] Jun 30, 2024 10:00 AM AMBULATORY - MEDICINE ID C [facility] [place] [facility] Aug 04, 2024 09:30 AM AMBULATORY - MEDICINE ID C [facility] [place] [facility] Aug 12, 2024 11:00 AM AMBULATORY - MEDICINE ID C [facility] [place] [facility] Aug 14, 2024 09:00 AM AMBULATORY - MEDICINE ID C [facility] [place] [facility] December 11, 2024 10:00 AM AMBULATORY - MEDICINE ID C [facility] [place] [facility] December 11, 2024 11:00 AM AMBULATORY - MEDICINE [facility] NTRL TRN [facility] Active, Pending, and Scheduled Orders This section includes a listing of several types of active, pending, and scheduled orders, including clinic medications orders, diagnostic test orders, procedure orders and consult orders; where the start date of the order is 45 days before the date of the Encounter or 45 days after the date of theEncounter. The data comes from all ID treatment facilities. Test Date/Time Test Type Test Details Facility Name May 21, 2024 02:45 PM Consult Order COMMUNITY CARE-CARDIOLOGY Cons Sound Recordist's Choice [facility] Jun 23, 2024 12:35 PM Consult Order COMMUNITY CARE-PHYSICAL THERAPY Cons Sound Recordist's Choice [facility] Social History: Smoking Status (Most [...] Yessica maloney Jan 08, 2024 10:00 AM VA-TOBACCO FORMER USER [facility] Tobacco Use History This section includes a history of the smoking, or tobacco-related health factors, that were collected on or before the date of the Encounter. The data comes from the ID facility where the Encounter took place. Date/Time Smoking Status/Tobac co Use Comment Facility Jan 08, 2024 10:00 AM VA-TOBACCO QUIT 5 TO < 15 YRS [facility] [place] [facility] May 03, 2022 01:00 PM VA-TOBACCO FORMER [facility] May 03, 2022 01:00 PM VA-TOBACCO QUIT 15 YRS OR MORE [facility] [place] [facility] May 17, 2021 09:00 AM VA-TOBACCO FORMER USER ID [facility] [place] [facility] May 17, 2021 09:00 AM VA-TOBACCO QUIT 15 YRS OR MORE ID [facility] [place] [facility] May 28, 2020 03:00 PM VA-TOBACCO FORMER USER [facility] May 28, 2020 03:00 PM VA-TOBACCO QUIT 5 TO < 15 YRS ID [facility] [place] [facility] Oct 04, 2018 11:04 AM VA-TOBACCO FORMER USER ID [facility] [place] [facility] Oct 04, 2018 11:04 AM VA-TOBACCO QUIT 1 TO < 5 YRS [facility] [place] [facility] Jan 24, 2018 01:52 PM CURRENT SMOKER ID [facility] [place] [facility] Jan 24, 2018 01:52 PM QUIT TOBACCO USE IN PAST YEAR quit ciagarettes 3 months [facility] Radiology Reports: +/- 30 days of [...] the Encounter. The data comes from all ID treatment facilities. Date/Time Radiology Report Provider Source Jun 23, 2024 10:25 AM ULTRASOUND NECK (THYROID,HEAD,SOFT TISSUE): NEVIN WILLIAMSON [id number] -1940 M Ex Date: JUN 23, 2024@10:25 Req Phys: JESUS KNIGHT Loc: NHM/ENDOCRINE (Req'g Loc) Img Loc: ULTRASOUND Service: Unknown [facility] [place] [id number] (Case 20 COMPLETE) ULTRASOUND NECK (THYROID,HEAD,SOF(US Detailed) CPT:98391 Reason for Study: multinodular goiter Clinical History: Report Status: Verified Date Reported: JUN 23, 2024 Date Verified: JUN 23, 2024 Tractor Mechanic Apprentice E-Sig:/ES/GUILLERMINA NUNES JR Report: Study: Thyroid [...] Committee. Kiarasler et al., Journal of the [place] [employer] 2017;14:587-595. Primary Diagnostic Code: No immediate attention required Primary Interpreting Staff: GUILLERMINA NUNES JR, Radiologist (Tractor Mechanic Apprentice) /GUILLERMINA MOTA JR [facility] Encounter Notes: All associated encounter notes This section contains the clinical notes associated to the Encounter. Date/Time Encounter Note(s) Provider Source Jun 13, 2024 01:18 PM ADDENDUM: LOCAL TITLE: Addendum STANDARD TITLE: ADDENDUM DATE OF NOTE: JUN 13, 2024@13:18:52 ENTRY DATE: JUN 13, 2024@13:18:53 AUTHOR: MARIA FERNANDA OLVERA EXP COSIGNER: URGENCY: STATUS: COMPLETED Alert to DONALDA to schedule an apt /rowena OLVERA LPN License Practical Nurse Signed: 06/13/2024 13:19 Receipt Acknowledged By: 06/13/2024 13:32 /catalina/ CONCETTA LYONS AMSA --- Original Document --- 06/13/24 CCC: SCHEDULING ADMINISTRATION: Patient Demographics Patient Name: NEVIN WILLIAMSON Patient Primary Phone: [phone] Patient Primary Address: [address] [place] [address] Patient : 1940 Patient Age: 84 Caller/Recipient Relation to Patient: Self Administrative Administrative Note Reason: Other Administrative Note Comments: [place] calling stating he was d/c from [facility] 06-11-24. [place] would like to follow up with PCP and make an d/c appt as well. Please call to advise. IMPORTANT: This note was created by [facility] Clinical Contact Center staff. Please do not alert the staff member by adding them as a signer for future communications. Alerts are not monitored by this user. /catalina/ MARIA ISABEL WATSON VISN1 CCC AMSA Signed: 06/13/2024 10:33 Receipt Acknowledged By: 06/13/2024 13:18 /catalina/ MARIA FERNANDA OLVERA LPN License Practical Nurse * AWAITING SIGNATURE * JERRY MCCARTNEY 06/13/2024 ADDENDUM STATUS: COMPLETED Records requested. /catalina/ MARIA FERNANDA OLVERA LPN License Practical Nurse Signed: 06/13/2024 13:24 MARIA FERNANDA OLVERA [place] [facility] [place] [facility] Jun 13, 2024 10:32 AM ADMINISTRATIVE NOT E: LOCAL TITLE: CCC: SCHEDULING ADMINISTRATION STANDARD TITLE: ADMINISTRATIVE NOTE DATE OF NOTE: JUN 13, 2024@10:32:55 ENTRY DATE: JUN 13, 2024@10:32:56 AUTHOR: MARIA ISABEL WATSON COSIGNER: URGENCY: STATUS: COMPLETED CCC: SCHEDULING ADMINISTRATION Has ADDENDA Patient Demographics Patient Name: NEVIN WILLIAMSON Patient Primary Phone: [phone] Patient Primary Address: [address] [place], [place] [id number] Patient : 1940 Patient Age: 84 Caller/Recipient Relation to Patient: Self Administrative Administrative Note Reason: Other Administrative Note Comments: calling stating he was d/c from [facility] 06-11-24. [place] would like to follow up with PCP and make an d/c appt as well. Please call to advise. IMPORTANT: This note was created by [facility] Clinical Contact Center staff. Please do not alert the staff member by adding them as a signer for future communications. Alerts are not monitored by this user. /catalina/ MARIA ISABEL WATSON VISN1 [facility] AMSA Signed: 06/13/2024 10:33 Receipt Acknowledged By: 06/13/2024 13:18 /catalina/ MARIA FERNANDA OLVERA LPN License Practical Nurse 06/13/2024 14:10 /es/ JERRY MCCARTNEY RN REGISTERED NURSE 06/13/2024 ADDENDUM STATUS: COMPLETED Alert to [facility] to schedule an apt /catalina/ MARIA FERNANDA OLVERA LPN License Practical Nurse Signed: 06/13/2024 13:19 Receipt Acknowledged By: 06/13/2024 13:32 /es/ CONCETTA LYONS AMSA 06/13/2024 ADDENDUM STATUS: COMPLETED Records requested. /catalina/ MARIA FERNANDA OLVERA LPN License Practical Nurse Signed: 06/13/2024 13:24 06/13/2024 ADDENDUM STATUS: COMPLETED [facility] CALLED ON TELEPHONE AND SCHEDULED AN APPT SET FOR June @ 1PM. /catalina/ CONCETTA LYONS AMSA Signed: 06/13/2024 13:34 MARIA ISABEL WATSON [facility] [facility]
--- OUTSIDE RECORDS SUMMARY | 2024-08-07 11:31 | XMS_ITS ---
Author Name Department of Vetera Affairs ([place]) Organization Department of Vetera Affairs ([place]) Address [address] [place] [address] Care Team Providers Care Fruit Inspector Name Role Phone RUBI CROWE Primary [...] O MEDEX BRONZ E Jun 06, 2007 [id number] [phone] NEVIN WILLIAMSON PATIENT ANTHEM BCBS OF [place] MEDICARE SUPPLEMEN SALVATORE PSUED O MEDEX BRONZ E Jun 06, 2007 [id number] NEVIN WILLIAMSON PATIENT ANTHEM BCBS OF [place] (BLUECARD) MEDICARE SUPPLEMEN [place]AT[place] PSUED O MEDEX BRONZ E Jun 06, 2007 [id number] NEVIN WILLIAMSON PATIENT [place] MEDICARE SUPPLEMEN SALVATORE MEDEX BRONZ E Jun 06, 2007 [id number] NEVIN WILLIAMSON PAT[place]PP[place] MEDEX BRONZ E Jun 06, 2007 [id number] NEVIN WILLIAMSON PATIENT MEDICARE (WNR) MEDICARE (M) PART B Jun 06, 2007 PART B [id number] [phone] NEVIN WILLIAMSON PATIENT MEDICARE (WNR) MEDICARE (M) PART B Jun 06, 2007 PART B [id number] [phone] NEVIN WILLIAMSON PATIENT MEDICARE (WNR) MEDICARE (M) PART A Jan 04, 2003 PART A [id number] NEVIN WILLIAMSON PATIENT MEDICARE (WNR) MEDICARE (M) PART A Jan 04, 2003 PART A [id number] [phone] NEVIN WILLIAMSON PATIENT MEDICARE (WNR) MEDICARE (M) PART B Jan 04, 2003 PART B [id number] NEVIN WILLIAMSON PATIENT MEDICARE (WNR) MEDICARE (M) PART A Jan 04, 2003 PART A [id number] [phone] NEVIN WILLIAMSON PATIENT Selected Encounter This section includes the information on record at AL for the Encounter. Date/Time Encounter Type Encounter Description Reason Pro vider Source Jun 30, 2024 12:00 AM Outpatient Encounter COMMUNITY CARE [...] 04, 2024 09:30 AM AMBULATORY - MEDICINE [facility] [place] [facility] Aug 12, 2024 11:00 AM AMBULATORY - MEDICINE [facility] [place] [facility] Aug 14, 2024 09:00 AM AMBULATORY - MEDICINE [facility] [place] [facility] December 11, 2024 10:00 AM AMBULATORY - MEDICINE [facility] [place] [facility] December 11, 2024 11:00 AM AMBULATORY - MEDICINE [facility] Active, Pending, and Scheduled Orders This section includes a listing of several types of active, pending, and scheduled orders, including clinic medications orders, diagnostic test orders, procedure orders and consult orders; where the start date of the order is 45 days before the date of the Encounter or 45 days after the date of theEncounter. The data comes from all [place] treatment facilities. Test Date/Time Test Type Test Details Facility Name May 21, 2024 02:45 PM Consult Order COMMUNITY CARE-CARDIOLOGY Cons Tractor Distributor's Choice [place] [facility] [place] [facility] Jun 23, 2024 12:35 PM Consult Order COMMUNITY [facility]-PHYSICAL THERAPY Cons Tractor Distributor's Choice AL [facility] Lab Results: +/- 30 days of the [...] Range Comment Jul 15, 2024 10:48 AM [facility] THYROID T4 FREE(FT4) (WROX) Specimen Type: SERUM No comment entered. Ordering Provider: JESUS KNIGHT Report Released Date/Time: Jun 12, 2024 08:46 AM Reporting Lab: [facility] [address] [address] Performing Lab: [facility]CH[facility] [address] [facility] [address] THYROID T4 FREE(FT4) (WROX) 1.14 ng/dL 0.6-1.6 Jul 15, 2024 10:48 AM [facility] TSH Specimen Type: SERUM No comment entered. Ordering Provider: JESUS KNIGHT Report Released Date/Time: Jun 12, 2024 08:46 AM Reporting Lab: [facility] [address] [address] Performing Lab: [facility]USEBRONX[facility] [address] [address] TSH 0.41 u[IU]/mL 0.35-5.00 Jul 15, 2024 10:48 AM [facility] BASIC METABOLIC PANEL (non-fasting) Specimen Type: SERUM No comment entered. Ordering Provider: JESUS KNIGHT Report Released Date/Time: Jun 12, 2024 08:46 AM Reporting Lab: [address] [address] Performing Lab: [place] [id number] UREA NITROGEN 11 mg/dL 7-25 GLUCOSE 101 mg/dL H 65-100 SODIUM 141 mmol/L 135-145 POTASSIUM 4.7 mmol/L 3.5-5.0 CHLORIDE 107 mmol/L 100-110 CO2 27 meq/L 20-30 CREATININE, Serum 1.06 mg/dL 0.50-1.40 eGFR(CKD-EPI 2020) 68 mL/min >60 Jul 15, 2024 10:48 AM [facility] CBC Specimen Type: BLOOD No comment entered. Ordering Provider: JESUS KNIGHT Report Released Date/Time: Jun 12, 2024 08:46 AM Reporting Lab: [address] [address] Performing Lab: [address] WBC 6.11 10*3/uL 4.50-11.00 RBC 4.31 10*6/uL 4.23-5.66 HGB 13.6 g/dL 12.8-17 HCT 40.2 39.2-50.4 MCV 93.3 fL 82-99 MCHC 33.8 g/dL 30.8-35.1 PLT 247 10*3/uL 140-360 RDW-CV 13.4 12.0-16.0 MCH 31.6 pg 26.2-32.6 Social History: Smoking Status (Most current) and [...] took place. Date/Time Current Smoking Status Comment [facility] it Jan 08, 2024 10:00 AM VA-TOBACCO QUIT 5 TO < 15 YRS [place] [facility] [place] [facility] Tobacco Use History This section includes a history of the smoking, or tobacco-related health factors, that were collected on or before the date of the Encounter. The data comes from the [place] facility where the Encounter took place. Date/Time Smoking Status/Tobac co Use Comment Facility Jan 08, 2024 10:00 AM VA-TOBACCO QUIT 5 TO < 15 YRS [facility] [place] [facility] May 03, 2022 01:00 PM VA-TOBACCO FORMER USER [facility] [place] [facility] May 03, 2022 01:00 PM VA-TOBACCO QUIT 15 YRS OR MORE [facility] [place] [facility] May 17, 2021 09:00 AM VA-TOBACCO FORMER USER [place] [facility] [place] [facility] May 17, 2021 09:00 AM VA-TOBACCO QUIT 15 YRS OR MORE [place] [facility] [place] [facility] May 28, 2020 03:00 PM VA-TOBACCO FORMER USER [place] [facility] [place] [facility] May 28, 2020 03:00 PM VA-TOBACCO QUIT 5 TO < 15 YRS [facility] [place] [facility] Oct 04, 2018 11:04 AM VA-TOBACCO FORMER USER [facility] [place] [facility] Oct 04, 2018 11:04 AM VA-TOBACCO QUIT 1 TO < 5 YRS [place] [facility] [place] [facility] Jan 24, 2018 01:52 PM CURRENT SMOKER [facility] [place] [facility] Jan 24, 2018 01:52 PM QUIT TOBACCO USE IN PAST YEAR quit ciagarettes 3 months ago [place] [facility] [place] [facility] Radiology Reports: +/- 30 days of the [...] AM ULTRASOUND NECK (THYROID,HEAD,SOFT TISSUE): NEVIN WILLIAMSON [id number] -1940 M Exm Date: JUN 23, 2024@10:25 Req Phys: JESUS KNIGHT Loc: NHM/ENDOCRINE (Req'g Loc) Img Loc: ULTRASOUND Service: [place] [address] (Case 20 COMPLETE) ULTRASOUND NECK (THYROID,HEAD,SOF(US Detailed) CPT:94358 Reason for Study: multinodular goiter Clinical History: Report Status: Verified Date Reported: JUN 23, 2024 Date Verified: JUN 23, 2024 Bed Machine Operator E-Sig:/ES/GUILLERMINA NUNES JR Report: Study: Thyroid ultrasound. [...] Committee. Elias et al., Journal of the [place] [employer] 2017;14:587-595. Primary Diagnostic Code: No immediate attention required Primary Interpreting Staff: GUILLERMINA NUNES JR, Radiologist (Bed Machine Operator) /GUILLERMINA MOTA JR [facility] Encounter Notes: All associated encounter notes This section contains the clinical notes associated to the Encounter. Date/Time Encounter Note(s) Provider Source Jun 30, 2024 12:00 AM NONVA CONSULT: LOCAL TITLE: COMMUNITY CARE-CONSULT RESULT NOTE STANDARD TITLE: NONVA CONSULT DATE OF NOTE: JUN 30, 2024 ENTRY DATE: JUL 04, 2024@14:24:34 AUTHOR: PERFECTO LIND EXP COSIGNER: URGENCY: STATUS: COMPLETED VistA Imaging - Scanned Document SCANNED DOCUMENT SIGNATURE NOT REQUIRED Electronically Filed: 07/04/2024 by: PERFECTO BREWSTER AL [facility]RE[facility]
--- OUTSIDE RECORDS SUMMARY | 2024-08-07 11:31 | XMS_ITS | Encounter Summary ---
Author Name [facility] Organization [facility] Address [address] [place] [id number] Care Team Providers Care Asset Management Lead Name Role Phone RUBI CROWE Primary [...] O MEDEX BRONZ E Jun 06, 2007 [id number] [phone] NEVIN WILLIAMSON PATIENT ANTHEM BCBS OF [place] MEDICARE SUPPLEMEN SAL[place]ATORE PSUED O MEDEX BRONZ E Jun 06, 2007 [id number] NEVIN WILLIAMSON PATIENT ANTHEM BCBS OF CT (BLUECARD) MEDICARE SUPPLEMEN [place] PSUED O MEDEX BRONZ E Jun 06, 2007 [id number] NEVIN WILLIAMSON PATIENT BCBS MD MEDICARE SUPPLEMEN SAL[place]ATORE MEDEX BRONZ E Jun 06, 2007 [id number] NEVIN WILLIAMSON PATIENT BCBS MD MEDICARE SUPPLEMEN [place] MEDEX BRONZ E Jun 06, 2007 [id number] [phone] NEVIN WILLIAMSON PATIENT MEDICARE (WNR) MEDICARE (M) PART B Jun 06, 2007 PART B [id number] NEVIN WILLIAMSON PATIENT MEDICARE (WNR) MEDICARE (M) PART B Jun 06, 2007 PART B [id number] [phone] NEVIN WILLIAMSON PATIENT MEDICARE (WNR) MEDICARE (M) PART A Jan 04, 2003 PART A [id number] [phone] NEVIN WILLIAMSON PATIENT MEDICARE (WNR) MEDICARE (M) PART A Jan 04, 2003 PART A [id number] NEVIN WILLIAMSON PATIENT MEDICARE (WNR) MEDICARE (M) PART B Jan 04, 2003 PART B [id number] [phone] NEVIN WILLIAMSON PATIENT MEDICARE (WNR) MEDICARE (M) PART A Jan 04, 2003 PART A [id number] NEVIN WILLIAMSON PATIENT Selected Encounter This section includes the information on record at [place] for the Encounter. Date/Time Encounter Type Encounter Description Reason Pro vider Source Jul 16, 2024 04:09 PM Outpatient Encounter ENDOCRINOLOGY IHE Encounter Template Text not used by [...] - MEDICINE [place] [facility] [place] [facility] Aug 12, 2024 11:00 AM AMBULATORY - MEDICINE [place] [facility] [place] [facility] Aug 14, 2024 09:00 AM AMBULATORY - MEDICINE [facility] [place] [facility] December 11, 2024 10:00 AM AMBULATORY - MEDICINE [place] [facility] [place] [facility] December 11, 2024 11:00 AM AMBULATORY - [facility] Active, Pending, and Scheduled Orders This section includes a listing of several types of active, pending, and scheduled orders, including clinic medications orders, diagnostic test orders, procedure orders and consult orders; where the start date of the order is 45 days before the date of the Encounter or 45 days after the date of theEncounter. The data comes from all [place] treatment facilities. Test Date/Time Test Type Test Details Facility Name Jun 23, 2024 12:35 PM Consult Order COMMUNITY CARE-PHYSICAL THERAPY Cons [facility] Lab Results: +/- 30 days of the encounter This section includes the Chemistry and Hematology Lab Results on record with [place] for the patient. Radiology Reports and Pathology Reports are provided separately, in subsequent sections. Lab Results This section contains the Chemistry/Hematology Results that were resulted 30 days before or 30 daysafter the date of the Encounter. Date/Time Source Result Type Result - Unit Interpretation Reference Range Comment Jul 15, 2024 10:48 AM [facility] THYROID T4 FREE(FT4) (WROX) Specimen Type: SERUM No comment entered. Ordering Provider: JESUS KNIGHT Report Released Date/Time: Jun 12, 2024 08:46 AM Reporting Lab: [place] [facility] [address] [facility] [address] Performing Lab: [facility] [address] [facility] [address] THYROID T4 FREE(FT4) (WROX) 1.14 ng/dL 0.6-1.6 Jul 15, 2024 10:48 AM [facility] TSH Specimen Type: SERUM No comment entered. Ordering Provider: JESUS KNIGHT Report Released Date/Time: Jun 12, 2024 08:46 AM Reporting Lab: [facility] [address] [facility] [address] Performing Lab: [facility] [address] [facility] [address] TSH 0.41 u[IU]/mL 0.35-5.00 Jul 15, 2024 10:48 AM [facility] BASIC METABOLIC PANEL (non-fasting) Specimen Type: SERUM No comment entered. Ordering Provider: JESUS KNIGHT Report Released Date/Time: Jun 12, 2024 08:46 AM Reporting Lab: [facility] [address] [facility] [address] Performing Lab: [facility] [address] [facility] [address] UREA NITROGEN 11 mg/dL 7-25 GLUCOSE 101 mg/dL H 65-100 SODIUM 141 mmol/L 135-145 POTASSIUM 4.7 mmol/L 3.5-5.0 CHLORIDE 107 mmol/L 100-110 CO2 27 meq/L 20-30 CREATININE, Serum 1.06 mg/dL 0.50-1.40 eGFR(CKD-EPI 2020) 68 mL/min >60 Jul 15, 2024 10:48 AM [facility] CBC Specimen Type: BLOOD No comment entered. Ordering Provider: JESUS KNIGHT Report Released Date/Time: Jun 12, 2024 08:46 AM Reporting Lab: [facility] [address] [facility] [address] Performing Lab: [facility] [address] [facility] [address] WBC 6.11 10*3/uL 4.50-11.00 RBC 4.31 10*6/uL [...] [email or web address] Jan 08, 2024 10:00 AM VA-TOBACCO QUIT 5 TO < 15 YRS [place] [facility] [place] [facility] Tobacco Use History This section includes a history of the smoking, or tobacco-related health factors, that were collected on or before the date of the Encounter. The data comes from the [place] facility where the Encounter took place. Date/Time Smoking Status/Tobac co Use Comment Facility Jan 08, 2024 10:00 AM VA-TOBACCO QUIT 5 TO < 15 YRS [place] [facility] [place] [facility] May 03, 2022 01:00 PM VA-TOBACCO FORMER USER [facility] [place] [facility] May 03, 2022 01:00 PM VA-TOBACCO QUIT 15 YRS OR MORE [facility] [place] [facility] May 17, 2021 09:00 AM VA-TOBACCO FORMER USER [place] [facility] [place] [facility] May 17, 2021 09:00 AM VA-TOBACCO QUIT 15 YRS OR MORE [facility] [place] [facility] May 28, 2020 03:00 PM VA-TOBACCO FORMER USER [facility] [place] [facility] May 28, 2020 03:00 PM VA-TOBACCO QUIT 5 TO < 15 YRS [facility] [place] [facility] Oct 04, 2018 11:04 AM VA-TOBACCO FORMER USER [facility] [place] [facility] Oct 04, 2018 11:04 AM VA-TOBACCO QUIT 1 TO < 5 YRS [facility] [place] [facility] Jan 24, 2018 01:52 PM CURRENT SMOKER [facility] [place] [facility] Jan 24, 2018 01:52 PM QUIT TOBACCO USE IN PAST YEAR quit ciagarettes 3 months ago [facility] [place] [facility] Radiology Reports: +/- 30 days [...] AM ULTRASOUND NECK (THYROID,HEAD,SOFT TISSUE): NEVIN WILLIAMSON [id number] -[phone] M Exm Date: JUN 23, 2024@10:25 Req Phys: JESUS KNIGHT Loc: NHM/ENDOCRINE (Req'g Loc) Img Loc: ULTRASOUND Service: Unknown [facility] [place] [address] (Case 20 COMPLETE) ULTRASOUND NECK (THYROID,HEAD,SOF(US Detailed) CPT:43431 Reason for Study: multinodular goiter Clinical History: Report Status: Verified Date Reported: JUN 23, 2024 Date Verified: JUN 23, 2024 [employer] E-Sig:/ES/GUILLERMINA NUNES JR Report: Study: Thyroid ultrasound. [...] (TI-RADS): White Paper of the TI-RADS Committee. Tessler et al., Journal of the [employer] 2017;14:587-595. Primary Diagnostic Code: No immediate attention required Primary Interpreting Staff: GUILLERMINA NUNES JR, Radiologist ([employer]) /GUILLERMINA MOTA JR [facility] [place] [facility] Encounter Notes: All associated encounter notes This section contains the clinical notes associated to the Encounter. Date/Time Encounter Note(s) Provider Source Jul 16, 2024 04:09 PM LETTERS: LOCAL TITLE: PATIENT LETTER (B) STANDARD TITLE: LETTERS DATE OF NOTE: JUL 16, 2024@16:09 ENTRY DATE: JUL 16, 2024@16:09:24 AUTHOR: JESUS KNIGHT COSIGNER: URGENCY: STATUS: COMPLETED Jul NEVIN WILLIAMSON [address] [place] [id number] [place], Your recent test results are as follows: 07/15/2024 10:48 SERUM TSH 0.41 uIU/mL 0.35 - 5.00 07/15/2024 10:48 SERUM Free T4 1.14 ng/dL 0.6 - 1.6 07/15/2024 10:48 SERUM CREATININE, Serum 1.06 mg/dL 0.50 - 1.40 eGFR(CKD-EPI 2020 68 mL/min Ref: >=60 SODIUM 141 mmol/L 135 - 145 POTASSIUM 4.7 mmol/L 3.5 - 5.0 CHLORIDE 107 mmol/L 100 - 110 CO2 27 mEq/L 20 - 30 UREA NITROGEN 11 mg/dL 7 - 25 GLUCOSE 101 H mg/dL 65 - 100 07/15/2024 10:48 WBC 6.11 K/cmm 4.50 - 11.00 RBC 4.31 M/cmm 4.23 - 5.66 HGB 13.6 g/dL 12.8 - 17 HCT 40.2 % 39.2 - 50.4 MCV 93.3 fl 82 - 99 MCH 31.6 pg 26.2 - 32.6 MCHC 33.8 g/dL 30.8 - 35.1 RDW-CV 13.4 % 12.0 - 16.0 PLT 247 K/cmm 140 - 360 Your kidney function blood test, chemistries, and blood counts are normal. Your thyroid function blood tests are normal. Please call if you have any questions or concerns at [phone] option 2 option 4. Sincerely, MD ANTONIA Jeffries [facility]
--- OUTSIDE RECORDS SUMMARY | 2024-08-07 11:31 | XMS_ITS ---
Author Name [facility] [place] [facility] [place] [facility] [place] [facility] [place] Address [address] [place] [address] Care Team Providers Care Wild Oyster Harvester Name Role Phone RUBI CROWE Primary Care [...] O MEDEX BRONZ E Jun 06, 2007 [id number] NEVIN WILLIAMSON PATIENT ANTHEM BCBS OF [place] MEDICARE SUPPLEMEN SALVATORE PSUED O MEDEX BRONZ E Jun 06, 2007 [id number] [phone] NEVIN WILLIAMSON PATIENT ANTHEM BCBS OF [place] (BLUECARD) MEDICARE SUPPLEMEN [place] PSUED O MEDEX BRONZ E Jun 06, 2007 [id number] NEVIN WILLIAMSON PATIENT [place] SUPPLEMEN [place] MEDEX BRONZ E Jun 06, 2007 [id number] NEVIN WILLIAM[place] MEDEX BRONZ E Jun 06, 2007 [id number] [phone] NEVIN WILLIAMSON PATIENT MEDICARE (WNR) MEDICARE (M) PART B Jun 06, 2007 PART B [id number] [phone] NEVIN WILLIAMSON PATIENT MEDICARE (WNR) MEDICARE (M) PART B Jun 06, 2007 PART B [id number] NEVIN WILLIAMSON PATIENT MEDICARE (WNR) MEDICARE (M) PART A Jan 04, 2003 PART A [id number] NEVIN WILLIAMSON PATIENT MEDICARE (WNR) MEDICARE (M) PART A Jan 04, 2003 PART A [id number] [phone] NEVIN WILLIAMSON PATIENT MEDICARE (WNR) MEDICARE (M) PART B Jan 04, 2003 PART B [id number] NEVIN WILLIAMSON PATIENT MEDICARE (WNR) MEDICARE (M) PART A Jan 04, 2003 PART A [id number] NEVIN WILLIAMSON PATIENT Selected Encounter This section includes the information on record at [place] for the Encounter. Date/Time Encounter Type Encounter Description Reason Provider Source Jun 23, 2024 11:30 AM OFFICE O/P EST MOD 30 MIN PRIMARY CARE/MEDICINE ICD-10-CM I65.29 Occlusion and stenosis of unspecified carotid artery FURCOLO,RUBI E Encounter Template Text not used by [place] Assessments - Encounter Diagnoses This section includes the primary and secondary diagnoses documented for the Encounter. 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 FURCOLO,RUBI [facility] [place] [facility] Jun 23, 2024 12:34 PM SECONDARY Cerebral infarction, unspecified FURCOLO,RUBI [facility] [place] [facility] Jun 23, 2024 12:34 PM SECONDARY Hyperlipidemia, unspecified FURCOLO,RUBI [facility] [place] [facility] Jun 23, 2024 12:34 PM SECONDARY Spinal stenosis, lumbar region without neurogenic laci RUBI CROWE [place] [facility] [place] [facility] Jun 23, 2024 12:34 PM SECONDARY Unspecified abnormalities of gait and mobility RUBI CROWE [place] [facility] [place] [facility] Plan of Treatment: Future Appointments (+ 6 months) and Future Tests (+/- 45 days) The Plan of Treatment section includes future care activities for the patient from [facility] [place] [facility]. This section includes future appointments and [...] - MEDICINE [place] [facility] [place] [facility] Aug 04, 2024 09:30 AM AMBULATORY MEDICINE [place] [facility] [place] [facility] Aug 12, 2024 11:00 AM AMBULATORY MEDICINE [place] [facility] [place] [facility] Aug 14, 2024 09:00 AM AMBULATORY MEDICINE [place] [facility] [facility] December 11, 2024 10:00 AM AMBULATORY MEDICINE [place] [facility] [facility] December 11, 2024 11:00 AM AMBULATORY MEDICINE [facility] Active, Pending, and Scheduled Orders This [...] 02:45 PM Consult Order COMMUNITY CARE-CARDIOLOGY Cons [place] [employer] [place] [facility] [place] [facility] Jun 23, 2024 12:35 PM Consult Order COMMUNITY CARE-PHYSICAL THERAPY Cons [place] [facility] Lab Results: +/- 30 days of [...] Range Comment Jul 15, 2024 10:48 AM [facility] THYROID T4 FREE(FT4) (WROX) Specimen Type: SERUM No comment entered. Ordering Provider: JESUS KNIGHT Report Released Date/Time: Jun 12, 2024 08:46 AM Reporting Lab: [place] [facility] [address] [address] Performing Lab: [facility] [address] [facility] [address] THYROID T4 FREE(FT4) (WROX) 1.14 ng/dL 0.6-1.6 Jul 15, 2024 10:48 AM [facility] TSH Specimen Type: SERUM No comment entered. Ordering Provider: JESUS KNIGHT Report Released Date/Time: Jun 12, 2024 08:46 AM Reporting Lab: [facility] [address] [facility] [address] Performing Lab: [facility] [address] [address] TSH 0.41 u[IU]/mL 0.35-5.00 Jul 15, 2024 10:48 AM [facility] BASIC METABOLIC PANEL (non-fasting) Specimen Type: SERUM No comment entered. Ordering Provider: JESUS KNIGHT Report Released Date/Time: Jun 12, 2024 08:46 AM Reporting Lab: [facility] [address] [address] Performing Lab: [facility] [address] [address] UREA NITROGEN 11 mg/dL 7-25 GLUCOSE 101 mg/dL H 65-100 SODIUM 141 mmol/L 135-145 POTASSIUM 4.7 mmol/L 3.5-5.0 CHLORIDE 107 mmol/L 100-110 CO2 27 meq/L 20-30 CREATININE, Serum 1.06 mg/dL 0.50-1.40 eGFR(CKD-EPI 2020) 68 mL/min >60 Jul 15, 2024 10:48 AM [facility] CBC Specimen Type: BLOOD No comment entered. Ordering Provider: JESUS KNIGHT Report Released Date/Time: Jun 12, 2024 08:46 AM Reporting Lab: [facility] [address] [facility] [address] Performing Lab: [facility] [address] [address] WBC 6.11 10*3/uL 4.50-11.00 RBC 4.31 10*6/uL [...] 11:41 AM 97.8 63 136/71 16 93 [facility] Social History: Smoking Status (Most current) [...] took place. Date/Time Current Smoking Status Comment [facility] it Jan 08, 2024 10:00 AM [place]-TOBACCO QUIT 5 TO < 15 YRS [facility] Tobacco Use History This section includes a history of the smoking, or tobacco-related health factors, that were collected on or before the date of the Encounter. The data comes from the [place] facility where the Encounter took place. Date/Time Smoking Status/Tobac co Use Comment Facility Jan 08, 2024 10:00 AM VA-TOBACCO QUIT 5 TO < 15 YRS [place] [facility] [place] [facility] May 03, 2022 01:00 PM VA-TOBACCO FORMER USER [facility] [place] [facility] May 03, 2022 01:00 PM VA-TOBACCO QUIT 15 YRS OR MORE [facility] [place] [facility] May 17, 2021 09:00 AM VA-TOBACCO FORMER USER [facility] [place] [facility] May 17, 2021 09:00 AM VA-TOBACCO QUIT 15 YRS OR MORE [place] [facility] [place] [facility] May 28, 2020 03:00 PM VA-TOBACCO FORMER USER [facility] [place] [facility] May 28, 2020 03:00 PM VA-TOBACCO QUIT 5 TO < 15 YRS [place] [facility] [place] [facility] Oct 04, 2018 11:04 AM VA-TOBACCO FORMER USER [place] [facility] [place] [facility] Oct 04, 2018 11:04 AM VA-TOBACCO QUIT 1 TO < 5 YRS [place] [facility] [place] [facility] Jan 24, 2018 01:52 PM CURRENT SMOKER [place] [facility] [place] [facility] Jan 24, 2018 01:52 PM QUIT TOBACCO USE IN PAST YEAR quit ciagarettes 3 months ago [facility] Radiology Reports: +/- 30 [...] AM ULTRASOUND NECK (THYROID,HEAD,SOFT TISSUE): NEVIN WILLIAMSON [id number] -1940 M Ex Date: JUN 23, 2024@10:25 Req Phys: JESUS KNIGHT Loc: NHM/ENDOCRINE (Req'g Loc) Img Loc: ULTRASOUND Service: Unknown [place] [facility] [place] [facility] KORY DALY [id number] (Case 20 COMPLETE) ULTRASOUND NECK (THYROID,HEAD,SOF(US Detailed) CPT:98648 Reason for Study: multinodular goiter Clinical History: Report Status: Verified Date Reported: JUN 23, 2024 Date Verified: JUN 23, 2024 Cafe Worker E-Sig:/ES/GUILLERMINA NUNES JR Report: Study: Thyroid ultrasound. [...] Committee. Kiarasler et al., Journal of the [employer] [place] [employer] 2017;14:587-595. Primary Diagnostic Code: No immediate attention required Primary Interpreting Staff: GUILLERMINA NUNES JR, Radiologist (Cafe Worker) /GUILLERMINA MOTA JR [facility] Encounter Notes: All associated encounter notes This section contains the clinical notes associated to the Encounter. Date/Time Encounter Note(s) Provider Source Jun 23, 2024 11:44 AM PREVENTIVE MEDICINE NURSING NOTE: LOCAL TITLE: CLINICAL REMINDERS/NURSING STANDARD TITLE: PREVENTIVE MEDICINE NURSING NOTE DATE OF NOTE: JUN 23, 2024@11:44 ENTRY DATE: JUN 23, 2024@11:44:42 AUTHOR: MARIA FERNANDA OLVERA EXP COSIGNER: URGENCY: STATUS: COMPLETED Depression Screening: Perform PHQ-2 A PHQ-2 screen was performed. The score was 0 which is a negative screen for depression. Over the past two weeks, how often have you been bothered by the following problems? 1. Little interest or pleasure in doing things Not at all 2. Feeling down, depressed, or hopeless Not at all Suicide Screen: C-SSRS Screening [place] Suicide Severity Rating Scale (C-SSRS) screener 1. Over the past month, have you wished you were or wished you could go to sleep and not wake up? No 2. Over the past month, have you had any actual thoughts of killing yourself? No 3. Over the past month, have you been thinking about how you might do this? Response not required due to responses to other questions. 4. Over the past month, have you had these thoughts and had some intention of acting on them? Response not required due to responses to other questions. 5. Over the past month, have you started to work out or worked out the details of how to kill yourself? Response not required due to responses to other questions. 6. If yes, at any time in the past month did you intend to carry out this plan? Response not required due to responses to other questions. 7. In your lifetime, have you ever done anything, started to do anything, or prepared to do anything to end your life (for example, collected pills, obtained a gun, gave away valuables, went to the roof but didn't jump)? No 8. If YES, was this within the past 3 months? Response not required due to responses to other questions. Alcohol Use Screen (AUDIT-C): Alcohol Screen: SCREEN FOR ALCOHOL (AUDIT-C) An alcohol screening test (AUDIT-C) was negative (score=0). 1. How often did you have a drink containing alcohol in the past year? Consider a drink to be a 12 ounce can or bottle of regular beer, 8 ounces of malt liquor, a 5 ounce glass of table wine, or a 1.5 ounce shot of liquor (like scotch, gin, or vodka). Never 2. How many drinks containing alcohol did you have on a typical day when you were drinking in the past year? Response not required due to responses to other questions. 3. How often did you have six or more drinks on one occasion in the past year? Response not required due to responses to other questions. /es/ MARIA FERNANDA MAY, APARTMENT COMMUNITY MANAGER License Practical Nurse Signed: 06/23/2024 11:46 MARIA FERNANDA OLVERA [facility] [place] [facility] Jun 23, 2024 11:41 AM PHYSICIAN NOTE: LOCAL TITLE: MD NOTE STANDARD TITLE: PHYSICIAN NOTE DATE OF NOTE: JUN 23, 2024@11:41 ENTRY DATE: JUN 23, 2024@11:41:44 AUTHOR: RUBI CROWE COSIGNER: URGENCY: STATUS: COMPLETED NEVIN WILLIAMSON is a 84 year old WHITE MALE who is being seen today in primary care for routine follow up. ER f/u [facility]- for fall CARE TEAM Community Primary Care Provider: Dr. Johnston [place] Specialists: podiatry [place] Specialists: vascular HISTORY PERIOD OF SERVICE - [place] [facility] SERVICE CONNECTED % - NONE FOUND HISTORY OF PRESENT ILLNESS seen in ER on 06/11 for a fall while in the kitchen- had been making coffee, tea. had been standing straight for some time and felt his legs get weak- woudl not hold him up. [place] ER eval: Patient is an 84 year old assigned male at with a history of COPD and ischemic cardiomyopathy presenting to the emergency department today with bilateral lower leg weakness and frequent falls. Patient's physical exam was as noted in the physical exam portion at this note. blood work was unremarKable. urine showed no acute process. Patient's EKG was unremarkable. Patient's bilateral knee and chest x-rays showed no acute process. Patient's head and cervical spine CTs showed no acute process. Patient's bilateral lower leg US showed no acute process RELEVANT PAST MEDICAL HISTORY Active problems - Computerized Problem List is the source for the followin. Carotid Artery Stenosis ([facility] [id number]) s/p CEA right 2. Multinodular goiter 3. Cerebrovascular accident 4. Coronary atherosclerosis following with [place] [facility], 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, near syncope 5. H/O: glaucoma 6. Hyperlipidemia 7. Elderly fall 8. COPD - Chronic Obstructive Pulmonary Disease ([facility] [id number]) d/ c smoking 8 months 9. HTN - Hypertension ([facility] [id number]) 10. 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 cannot walk upstairs- living on one level in the home. not driving as at times numbess to his feet ALLERGIES AUGMENTIN, BEE VENOM, HYDROCHLOROTHIAZIDE MEDICATIONS VA and Non VA meds were reconciled with the patient who left with a corrected copy. Active and Recently Outpatient Medications (excluding Supplies): Active Outpatient Medications Status 1) EPINEPHRINE (EQV-EPI-PEN) 0.3MG/0.3ML INJECT ACTIVE DIRECTED INTRAMUSCULARLY ONCE DAILY NEEDED FOR LIFE THREATENING ALLERGIC REACTION 2) FLUTICASONE PROP 50MCG 120D NASAL INHL INSTILL 1 ACTIVE SPRAY INTO EACH NOSTRIL AT BEDTIME FOR NASAL IRRITATION/INFLAMMATION 3) KETOROLAC TROMETHAMINE 0.5% OPH SOLN INSTILL 1 DROP ACTIVE INTO THE AFFECTED EYE(S) THREE TIMES A DAY FOLLOWING SURGERY FOR 3 WEEKS. SEPARATE BOTTLE FOR EACH EYE. 4) LATANOPROST 0.005% OPH SOLN INSTILL 1 DROP INTO EACH ACTIVE EYE AT BEDTIME TO REDUCE PRESSURE IN THE EYE 5) LEVETIRACETAM 250MG TAB TAKE ONE TABLET BY MOUTH AT ACTIVE BEDTIME 6) LISINOPRIL 20MG TAB TAKE ONE TABLET BY MOUTH ONCE ACTIVE DAILY FOR HIGH BLOOD PRESSURE TO CONTROL BLOOD PRESSURE 7) PREDNISOLONE ACETATE 1% OPH SUSP INSTILL 1 DROP INTO ACTIVE THE AFFECTED EYE(S) THREE TIMES A DAY FOLLOWING SURGERY FOR 3 WEEKS. SEPARATE BOTTLE FOR EACH EYE. 8) TAMSULOSIN HCL 0.4MG CAP TAKE ONE CAPSULE BY MOUTH AT ACTIVE BEDTIME FOR ENLARGED PROSTATE Inactive Outpatient Medications Status 1) ATORVASTATIN CALCIUM 80MG TAB TAKE ONE TABLET BY MOUTH ONCE DAILY FOR CHOLESTEROL 2) ISOSORBIDE MONONITRATE 30MG SA TAB TAKE ONE TABLET BY MOUTH ONCE DAILY TO PREVENT ANGINA 3) METOPROLOL SUCCINATE 25MG SA TAB TAKE ONE TABLET BY MOUTH ONCE DAILY FOR BLOOD PRESSURE/HEART Active Non-VA Medications Status 1) Non-VA ASPIRIN 81MG EC TAB 81MG BY MOUTH ONCE DAILY ACTIVE 12 Total Medications REVIEW OF SYMPTOMS POSITIVE FOR: NEGATIVE FOR: CONSTITUTION: no weight loss/gain, fatigue, fevers, night sweats HEENT: no vision problems, hearing loss,swallowing difficulties, sinus pain CV: no chest pain, palpitations, dyspnea on exertion, orthopnea RESP: no cough, shortness of breath, wheezing GI: no abdominal pain, N/V/D, constipation, blood in stool, normal appetite : no urinary frequency, nocturia, hematuria MUSC: no joint pain, joint swelling, muscle aches NEURO: no headaches, dizziness, memory loss, tremor, weakness PSYCH: no depression, anxiety, suicidal or homicidal thoughts SKIN: no rash, new skin lesions PHYSICAL EXAM Vitals: - - - - - - - B/P: 136/71 (06/23/2024 11:41) pulse: 63 (06/23/2024 11:41) resp: 16 (06/23/2024 11:41) temp: 97.8 F [36.6 C] (06/23/2024 11:41) Ht: 68 in [172.7 cm] (06/20/2023 09:55) Wgt: 174 lb [78.93 kg] (02/11/2024 08:33) BMI: BMI: 26.5 Exam: - - - - - - - in wheelchair RRR s1 S2 LCTA bilat no LE edema MS 5 LE bilaterally RECENT LABS BMP (FASTING) Collection DT Specimen Test Name Result Units Ref Range 01/30/2024 08:55 SERUM UREA NITROGEN 9 mg/dL 7 - 01/30/2024 08:55 SERUM GLUCOSE 109 H mg/dL 65 - 100 01/30/2024 08:55 SERUM SODIUM 136 mmol/L 135 - 145 01/30/2024 08:55 SERUM POTASSIUM 4.1 mmol/L 3.5 - 5.0 01/30/2024 08:55 SERUM CHLORIDE 106 mmol/L 100 - 110 01/30/2024 08:55 SERUM CO2 24 mEq/L 20 - 30 01/30/2024 08:55 SERUM CREATININE, Serum 1.01 mg/dL 0.50 - 1.40 02/16/2021 08:38 SERUM eGFR (IDMS) 60 Ref: >=60 LIVER PANEL TREND Collection DT Spec AST ALT T BILI ALK LOREN T. PROT ALBUMIN 06/29/2023 08:43 SERUM 24 20 0.8 110 6.9 3.7 08/22/2022 12:42 SERUM 22 20 0.7 93 6.5 3.5 05/03/2022 12:23 SERUM 22 18 0.8 95 6.6 3.6 02/16/2021 08:38 SERUM 18 18 0.9 110 6.8 3.7 07/04/2019 08:13 SERUM 19 17 0.7 84 7.4 4.3 LIPID PANEL TREND Collection DT Spec CHOL HDL CHO/HDL LDL-c TRIG 01/30/2024 08:55 SERUM 91 29 L 3.1 49 65 06/29/2023 08:43 SERUM 118 34 L 3.5 69 73 08/22/2022 12:42 SERUM 102 30 L 3.4 58 70 05/03/2022 12:23 SERUM 100 31 L 3.2 54 73 02/16/2021 08:38 SERUM 98 29 L 3.4 56 67 CBC TREND Collection DT Spec WBC RBC [...] 6.74 4.38 13.8 40.0 91.3 31.5 263 ASSESSMENT AND PLAN 1. fall- secondary to weakness in thighs. has underlying spinal stenosis. prefers no surgery. ok to do PT- he prefers to do close to his home in [place]- [facility]. 2. history of CVA- has been on high dose atorvastatin. suspect might be contributing to some weakness as well- will reduce to 40 mg daily. will go back on babay asa 81 g daily. had nosebleeds on 325 mg 3. OA spine- ok to use tylenol 1000 mg BID and asa 81 mg daily FOLLOW UP has f/u apt for [place]- will keep VISIT TYPE:a MODERATE complexity visit where 30 minutes was spent in direct patient care, review of records and documentation. Upcoming Appointments: 08/04/2024 09:30 NHM/ENDOCRINE 08/12/2024 11:00 CWM/NO/PODIATRY/NAIL 08/13/2024 11:00 CWM/NO/PACT EIGHT 08/14/2024 09:00 CWM/NO/OPTOMETRY/ALTHEA 12/11/2024 10:00 CWM/NO/DERMATOLOGY ACCOUNTING MANAGER ASSISTANT CONTROLLER AM /es/ RUBI CROWE D.O. PHYSICIAN Signed: 06/23/2024 12:34 RUBI CROWE [facility] [place] [facility]
--- OUTSIDE RECORDS SUMMARY | 2024-08-07 11:31 | XMS_ITS | Encounter Summary ---
Author Name [facility] Organization [facility] Address [address] [place] [id number] Care Team Providers Care Metal Temperer Name Role Phone RUBI CROWE Primary Care [...] O MEDEX BRONZ E Jun 06, 2007 [id number] NEVIN WILLIAMSON PATIENT ANTHEM BCBS OF [place] MEDICARE SUPPLEMEN [place] PSUED O MEDEX BRONZ E Jun 06, 2007 [id number] NEVIN WILLIAMSON PATIENT ANTHEM BCBS OF [place] (BLUECARD) MEDICARE SUPPLEMEN [place] PSUED O MEDEX BRONZ E Jun 06, 2007 [id number] [phone] NEVIN WILLIAMSON PATIENT [place] MED[place] SUPP[place] MEDEX BRONZ E Jun 06, 2007 [id number] [phone] NEVIN WILLIAMSON [place] MEDEX BRONZ E Jun 06, 2007 [id number] [phone] NEVIN WILLIAMSON PATIENT MEDICARE (WNR) MEDICARE (M) PART B Jun 06, 2007 PART B [id number] NEVIN WILLIAMSON PATIENT MEDICARE (WNR) MEDICARE (M) PART B Jun 06, 2007 PART B [id number] [phone] NEVIN WILLIAMSON PATIENT MEDICARE (WNR) MEDICARE (M) PART A Jan 04, 2003 PART A [id number] NEVIN WILLIAMSON PATIENT MEDICARE (WNR) MEDICARE (M) PART A Jan 04, 2003 PART A [id number] NEVIN WILLIAMSON PATIENT MEDICARE (WNR) MEDICARE (M) PART B Jan 04, 2003 PART B [id number] NEVIN WILLIAMSON PATIENT MEDICARE (WNR) MEDICARE (M) PART A Jan 04, 2003 PART A [id number] [phone] NEVIN WILLIAMSON PATIENT Selected Encounter This section includes the information on record at [place] for the Encounter. Date/Time Encounter Type Encounter Description Reason Pro vider Source Jun 24, 2024 09:04 AM Outpatient Encounter ENDOCRINOLOGY I[facility] Encounter Template Text not used by [place] Plan of Treatment: Future Appointments (+ 6 [...] - MEDICINE [place] [facility] [place] [facility] Aug 04, 2024 09:30 AM AMBULATORY - MEDICINE [place] [facility] [place] [facility] Aug 12, 2024 11:00 AM AMBULATORY - MEDICINE [facility] [place] [facility] Aug 14, 2024 09:00 AM AMBULATORY - MEDICINE [place] [facility] [place] [facility] December 11, 2024 10:00 AM [facility] December 11, 2024 11:00 AM AMBULATORY - MEDICINE [facility] Active, Pending, and Scheduled Orders This section includes a listing of several types of active, pending, and scheduled orders, including clinic medications orders, diagnostic test orders, procedure orders and consult orders; where the start date of the order is 45 days before the date of the Encounter or 45 days after the date of theEncounter. The data comes from all [place] treatment facilities. Test Date/Time Test Type Test Details Facility Name May 21, 2024 02:45 PM Consult Order [facility] Cons Web User Experience Strategist's Choice [facility] Jun 23, 2024 12:35 PM Consult [facility] Lab Results: +/- 30 days of the [...] Range Comment Jul 15, 2024 10:48 AM [facility] THYROID T4 FREE(FT4) (WROX) Specimen Type: SERUM No comment entered. Ordering Provider: JESUS KNIGHT Report Released Date/Time: Jun 12, 2024 08:46 AM Reporting Lab: [facility] [address] [facility] [address] Performing Lab: [facility] [address] [facility] [address] THYROID T4 FREE(FT4) (WROX) 1.14 ng/dL 0.6-1.6 Jul 15, 2024 10:48 AM [facility] TSH Specimen Type: SERUM No comment entered. Ordering Provider: JESUS KNIGHT Report Released Date/Time: Jun 12, 2024 08:46 AM Reporting Lab: [facility] [address] [facility] [address] Performing Lab: [facility] [address] [facility] [address] TSH 0.41 u[IU]/mL 0.35-5.00 Jul 15, 2024 10:48 AM [facility] CBC Specimen Type: BLOOD No comment entered. Ordering Provider: JESUS KNIGHT Report Released Date/Time: Jun 12, 2024 08:46 AM Reporting Lab: [facility] [address] [facility] [address] Performing Lab: [facility] [address] [facility] [address] WBC 6.11 10*3/uL 4.50-11.00 RBC 4.31 10*6/uL 4.23-5.66 HGB 13.6 g/dL 12.8-17 HCT 40.2 39.2-50.4 MCV 93.3 fL 82-99 MCHC 33.8 g/dL 30.8-35.1 PLT 247 10*3/uL 140-360 RDW-CV 13.4 12.0-16.0 MCH 31.6 pg 26.2-32.6 Jul 15, 2024 10:48 AM [facility] BASIC METABOLIC PANEL (non-fasting) Specimen Type: SERUM No comment entered. Ordering Provider: JESUS KNIGHT Report Released Date/Time: Jun 12, 2024 08:46 AM Reporting Lab: [facility] [address] [facility] [address] Performing Lab: [address] [address] UREA NITROGEN 11 mg/dL 7-25 GLUCOSE 101 [...] took place. Date/Time Current Smoking Status Comment [facility] Jan 08, 2024 10:00 AM VA-TOBACCO FORMER USER [place] [facility] [place] [facility] Tobacco Use History This section includes a history of the smoking, or tobacco-related health factors, that were collected on or before the date of the Encounter. The data comes from the [place] facility where the Encounter took place. Date/Time Smoking Status/Tobac co Use Comment Facility Jan 08, 2024 10:00 AM VA-TOBACCO QUIT 5 TO < 15 YRS [place] [facility] [place] [facility] May 03, 2022 01:00 PM VA-TOBACCO FORMER USER [facility] [place] [facility] May 03, 2022 01:00 PM VA-TOBACCO QUIT 15 YRS OR MORE [place] [facility] [place] [facility] May 17, 2021 09:00 AM VA-TOBACCO FORMER USER [place] [facility] [place] [facility] May 17, 2021 09:00 AM VA-TOBACCO QUIT 15 YRS OR MORE [place] [facility] [place] [facility] May 28, 2020 03:00 PM VA-TOBACCO FORMER USER [place] [facility] [place] [facility] May 28, 2020 03:00 PM VA-TOBACCO QUIT 5 TO < 15 YRS [place] [facility] [place] [facility] Oct 04, 2018 11:04 AM VA-TOBACCO FORMER USER [place] [facility] [place] [facility] Oct 04, 2018 11:04 AM VA-TOBACCO QUIT 1 TO < 5 YRS [place] [facility] [place] [facility] Jan 24, 2018 01:52 PM CURRENT SMOKER [facility] [place] [facility] Jan 24, 2018 01:52 PM QUIT TOBACCO USE IN PAST YEAR quit ciagarettes 3 months ago [place] [facility] [place] [facility] Radiology Reports: +/- 30 days of the [...] AM ULTRASOUND NECK (THYROID,HEAD,SOFT TISSUE): NEVIN WILLIAMSON [id number] -1940 M Exm Date: JUN 23, 2024@10:25 Req Phys: JESUS KNIGHT Loc: [facility]/ENDOCRINE (Req'g Loc) Img Loc: ULTRASOUND Service: Unknown [place] [address] (Case 20 COMPLETE) ULTRASOUND NECK (THYROID,HEAD,SOF(US Detailed) CPT:05671 Reason for Study: multinodular goiter Clinical History: Report Status: Verified Date Reported: JUN 23, 2024 Date Verified: JUN 23, 2024 Mechanic Chief E-Sig:/ES/GUILLERMINA NUNES JR Report: Study: Thyroid ultrasound. [...] Committee. Elias et al., Journal of the [employer] 2017;14:587-595. Primary Diagnostic Code: No immediate attention required Primary Interpreting Staff: GUILLERMINA NUNES JR, Radiologist (Mechanic Chief) /GUILLERMINA MOTA JR [facility] Encounter Notes: All associated encounter notes This section contains the clinical notes associated to the Encounter. Date/Time Encounter Note(s) Provider Source Jun 24, 2024 09:04 AM LETTERS: LOCAL TITLE: PATIENT LETTER (B) STANDARD TITLE: LETTERS DATE OF NOTE: JUN 24, 2024@09:04 ENTRY DATE: JUN 24, 2024@09:04:20 AUTHOR: JESUS KNIGHT COSIGNER: URGENCY: STATUS: COMPLETED Jun [address], [place] [address] Dear , Your recent test results are as follows: 06/23/2024 ULTRASOUND NECK 71001 Verified 20 (THYROID,HEAD,SOFT TISSUE) No significant interval change to the thyroid nodules. I look forward to our visit next month. We will continue to monitor your nodules with exam and ultrasound. Please call if you have any questions or concerns at [phone] option 2 option 4. Sincerely, MD ANTONIA Jeffries ALICE [facility]
--- OUTSIDE RECORDS SUMMARY | 2024-08-07 11:32 | XMS_ITS | Encounter Summary ---
Author Name [facility] Address [address] [place] [address] Care Team Providers Care Jaw Skinner Name Role Phone RUBI CROWE Primary Care [...] O MEDEX BRONZ E Jun 06, 2007 [id number] NEVIN WILLIAMSON PATIENT ANTHEM BCBS OF [place] MEDICARE SUPPLEMEN SALVATORE PSUED O MEDEX BRONZ E Jun 06, 2007 [id number] NEVIN WILLIAMSON PATIENT ANTHEM BCBS OF CT (BLUECARD) MEDICARE SUPPLEMEN [place] PSUED O MEDEX BRONZ E Jun 06, 2007 [id number] NEVIN WILLIAMSON PATIENT BCBS MD MEDICARE SUPPLEMEN [place] MEDEX BRONZ E Jun 06, 2007 [id number] [phone] NEVIN WILLIAMSON PATIENT BCBS MD MEDICARE SUPPLEMEN [place] MEDEX BRONZ E Jun 06, 2007 [id number] [phone] NEVIN WILLIAMSON PATIENT MEDICARE (WNR) MEDICARE (M) PART B Jun 06, 2007 PART B [id number] NEVIN WILLIAMSON PATIENT MEDICARE (WNR) MEDICARE (M) PART B Jun 06, 2007 PART B [id number] NEVIN WILLIAMSON PATIENT MEDICARE (WNR) MEDICARE (M) PART A Jan 04, 2003 PART A [id number] [phone] NEVIN WILLIAMSON PATIENT MEDICARE (WNR) MEDICARE (M) PART A Jan 04, 2003 PART A [id number] NEVIN WILLIAMSON PATIENT MEDICARE (WNR) MEDICARE (M) PART B Jan 04, 2003 PART B [id number] NEVIN WILLIAMSON PATIENT MEDICARE (WNR) MEDICARE (M) PART A Jan 04, 2003 PART A [id number] [phone] NEVIN WILLIAMSON PATIENT Selected Encounter This section includes the information on record at [place] for the Encounter. Date/Time Encounter Type Encounter Description Reason Provider Source Aug 04, 2024 09:30 AM OFFICE O/P EST MOD 30 MIN ENDOCRINOLOGY ICD-10-CM E04.2 Nontoxic multinodular goiter JESUS KNIGHT Pepito Encounter Template Text not used by [place] Assessments - Encounter Diagnoses This section includes the primary and secondary diagnoses documented for the Encounter. Date/Time Primary/Secondary Diagnosis Diagnosis Name Provider Source Aug 04, 2024 09:37 AM PRIMARY Nontoxic multinodular goiter JESUS KNIGHT [place] [facility] [place] [facility] Plan of Treatment: Future Appointments (+ [...] Appointment Type Appointme nt Facility Name Aug 12, 2024 11:00 AM AMBULATORY - MEDICINE [place] [facility] [place] [facility] Aug 14, 2024 09:00 AM [facility] [place] [facility] [place] [facility] December 11, 2024 10:00 AM [facility]ULATORY [facility] December 11, 2024 11:00 AM AMBULATORY - MEDICINE [facility] Active, Pending, and Scheduled Orders This [...] 23, 2024 12:35 PM Consult Order [facility]-PHYSICAL THERAPY Cons Billet Checker's Choice [facility] Lab Results: +/- 30 days of the encounter This section includes the Chemistry and Hematology Lab Results on record with [place] for the patient. Radiology Reports and Pathology Reports are provided separately, in subsequent sections. Lab Results This section contains the Chemistry/Hematology Results that were resulted 30 days before or 30 daysafter the date of the Encounter. Date/Time Source Result Type Result - Unit Interpretation Reference Range Comment Jul 15, 2024 10:48 AM [facility] THYROID T4 FREE(FT4) (WROX) Specimen Type: SERUM No comment entered. Ordering Provider: JESUS KNIGHT Report Released Date/Time: Jun 12, 2024 08:46 AM Reporting Lab: [facility] [address] [address] Performing Lab: [facility] [address] [facility] [address] THYROID T4 FREE(FT4) (WROX) 1.14 ng/dL 0.6-1.6 Jul 15, 2024 10:48 AM [facility] TSH Specimen Type: SERUM No comment entered. Ordering Provider: JESUS KNIGHT Report Released Date/Time: Jun 12, 2024 08:46 AM Reporting Lab: [facility] [address] [address] Performing Lab: [facility] [address] [address] TSH 0.41 u[IU]/mL 0.35-5.00 Jul 15, 2024 10:48 AM [facility] BASIC METABOLIC PANEL (non-fasting) Specimen Type: SERUM No comment entered. Ordering Provider: JESUS KNIGHT Report Released Date/Time: Jun 12, 2024 08:46 AM Reporting Lab: [address] [address] Performing Lab: [address] [address] UREA NITROGEN 11 mg/dL 7-25 GLUCOSE 101 mg/dL H 65-100 SODIUM 141 mmol/L 135-145 POTASSIUM 4.7 mmol/L 3.5-5.0 CHLORIDE 107 mmol/L 100-110 CO2 27 meq/L 20-30 CREATININE, Serum 1.06 mg/dL 0.50-1.40 eGFR(CKD-EPI 2020) 68 mL/min >60 Jul 15, 2024 10:48 AM [facility] CBC Specimen Type: BLOOD No comment entered. Ordering Provider: JESUS KNIGHT Report Released Date/Time: Jun 12, 2024 08:46 AM Reporting Lab: [address] [address] Performing Lab: [address] [address] WBC 6.11 10*3/uL 4.50-11.00 RBC 4.31 10*6/uL [...] Pain Height Weight Body Mass Index Source Aug 04, 2024 09:15 AM 97.3 63 130/74 18 95 174.6 27 [place] [facility] [place] [facility] Social History: Smoking Status (Most current) [...] took place. Date/Time Current Smoking Status Comment [facility] it Jan 08, 2024 10:00 AM VA-TOBACCO FORMER USER [place] [facility] Tobacco Use History This section includes a history of the smoking, or tobacco-related health factors, that were collected on or before the date of the Encounter. The data comes from the [place] facility where the Encounter took place. Date/Time Smoking Status/Tobac co Use Comment [facility] Jan 08, 2024 10:00 AM VA-TOBACCO QUIT 5 TO < 15 YRS [facility] [place] [facility] May 03, 2022 01:00 PM VA-TOBACCO FORMER USER [facility] [place] [facility] May 03, 2022 01:00 PM VA-TOBACCO QUIT 15 YRS OR MORE [facility] [place] [facility] May 17, 2021 09:00 AM VA-TOBACCO FORMER USER [facility] [place] [facility] May 17, 2021 09:00 AM VA-TOBACCO QUIT 15 YRS OR MORE [facility] [place] [facility] May 28, 2020 03:00 PM VA-TOBACCO FORMER USER [facility] [place] [facility] May 28, 2020 03:00 PM VA-TOBACCO QUIT 5 TO < 15 YRS [facility] [place] [facility] Oct 04, 2018 11:04 AM VA-TOBACCO FORMER USER [facility] [place] [facility] Oct 04, 2018 11:04 AM VA-TOBACCO QUIT 1 TO < 5 YRS [facility] [place] [facility] Jan 24, 2018 01:52 PM CURRENT SMOKER [facility] [place] [facility] Jan 24, 2018 01:52 PM QUIT TOBACCO USE IN PAST YEAR quit ciagarettes 3 months ago [facility] [place] [facility] Encounter Notes: All associated encounter notes This section contains the clinical notes associated to the Encounter. Date/Time Encounter Note(s) Provider Source Aug 04, 2024 09:25 AM PHYSICIAN NOTE: LOCAL TITLE: NOTE STANDARD TITLE: PHYSICIAN NOTE DATE OF NOTE: AUG 04, 2024@09:25 ENTRY DATE: AUG 04, 2024@09:25:43 AUTHOR: JESUS KNIGHT COSIGNER: URGENCY: STATUS: COMPLETED NOTE Has ADDENDA CC : multinodular goiter HPI: He has relief from leg cramps since PCP lowered statin dose. Noting no change in the area of the thyroid. No dysphagia or hoarseness. All recent endocrine labs were reviewed with the patient. Exm Date: JUN 23, 2024@10:25 Reason for Study: multinodular goiter Comparison: Thyroid ultrasound from January 21, 2024, June 19, 2023, June 01, 2022 and August 02, 2021. Right: Again seen is an interpolar 2.0 cm [...] identified. The thyroid isthmus is sonographically normal. Left: Again seen is an interpolar lateral 0.6 [...] to the thyroid nodules, as described above. Active problems - Computerized Problem List is the source for the followin. Carotid Artery Stenosis ([facility] [id number]) 2. Multinodular goiter 3. Cerebrovascular accident 4. Coronary atherosclerosis 5. H/O: glaucoma 6. Hyperlipidemia 7. Elderly fall 8. COPD - Chronic Obstructive Pulmonary Disease ([facility] [id number]) 9. HTN - Hypertension ([facility] [id number]) 10. 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 Outpatient Medications (including Supplies): 1) ACETAMINOPHEN 500MG TAB TAKE TWO TABLETS BY MOUTH TWICE ACTIVE DAILY Indication: FOR PAIN 2) ASPIRIN 81MG EC TAB TAKE ONE TABLET BY MOUTH ONCE DAILY TO ACTIVE PREVENT STROKE/HEART ATTACK Indication: FOR PAIN 3) ATORVASTATIN CALCIUM 80MG TAB TAKE ONE-HALF TABLET BY MOUTH ACTIVE ONCE DAILY FOR CHOLESTEROL Indication: FOR HIGH CHOLESTEROL 4) EPINEPHRINE (EQV-EPI-PEN) 0.3MG/0.3ML INJECT DIRECTED ACTIVE INTRAMUSCULARLY ONCE DAILY NEEDED Indication: FOR LIFE THREATENING ALLERGIC REACTION 5) ISOSORBIDE MONONITRATE 30MG SA TAB TAKE ONE TABLET BY MOUTH ACTIVE (S) ONCE DAILY TO PREVENT ANGINA 6) KETOROLAC TROMETHAMINE 0.5% OPH SOLN INSTILL 1 DROP INTO THE ACTIVE AFFECTED EYE(S) THREE TIMES A DAY FOLLOWING SURGERY FOR 3 WEEKS. SEPARATE BOTTLE FOR EACH EYE. confirmed 7) LATANOPROST 0.005% OPH SOLN INSTILL 1 DROP INTO EACH EYE AT ACTIVE BEDTIME TO REDUCE PRESSURE IN THE EYE 8) LEVETIRACETAM 250MG TAB TAKE ONE TABLET BY MOUTH AT BEDTIME ACTIVE (S) 9) LISINOPRIL 20MG TAB TAKE ONE TABLET BY MOUTH ONCE DAILY TO ACTIVE CONTROL BLOOD PRESSURE Indication: FOR HIGH BLOOD PRESSURE 10) METOPROLOL SUCCINATE 25MG SA TAB TAKE ONE TABLET BY MOUTH ACTIVE ONCE DAILY FOR BLOOD PRESSURE/HEART 11) PREDNISOLONE ACETATE 1% OPH SUSP INSTILL 1 DROP INTO THE ACTIVE AFFECTED EYE(S) THREE TIMES A DAY FOLLOWING SURGERY FOR 3 WEEKS. SEPARATE BOTTLE FOR EACH EYE. 12) TAMSULOSIN HCL 0.4MG CAP TAKE ONE CAPSULE BY MOUTH AT ACTIVE BEDTIME Timolol eye drops -- will ask at desk for renewal today SHx: Lives with , who attends ROS: some post nasal drip does not wish medication No fever PE: affect pleasant appropriate speaking easily in full sentences phonates eee well thyroid irregular mobile, smooth nodule no LN A/P: Active problems - Computerized Problem List is the source for the followin. Multinodular goiter Follow up two years or if sx develop, with u/s prior Medication Reconciliation: Outpatient: Has the patient been taking medications as documented in the EMLR? No: Discrepencies were identified. See below. Essential Medication List for Review used to complete this medication reconciliation. INCLUDED IN THIS LIST: Alphabetical list of active outpatient prescriptions [facility] from [facility]local) and dispensed from another [place] or [facility] facility (remote) as well as inpatient orders (local, pending and active), local clinic medications, locally documented non-VA medications, and local prescriptions that have or been discontinued in the past 90 days. - Discrepancies were identified, addressed, and discussed with the patient/caregiver at this encounter. - All changes in medications, including all [...] this [facility] (local) and dispensed from another [place] or [facility] facility (remote) as well as inpatient orders (local pending and active), local clinic medications, locally documented non-VA medications, and local prescriptions that have or been discontinued in the past 90 days. Non-VA Meds Last Documented On: Jun 19, 2022 NOTE The display of VA prescriptions dispensed from another [place] or [facility] facility (remote) is limited to active outpatient prescription entries matched to National Drug File at the originating site and may not include some items such as investigational drugs, compounds, etc. NOT INCLUDED IN THIS LIST: Medications self-entered by the patient into personal health records (i.e. [employer]) are NOT included in this list. Non-VA medications documented outside this [place], remote inpatient orders (regardless of status) and remote clinic medications are NOT included in this list. The patient and provider must always discuss medications the patient is taking, regardless of where the medication was dispensed or obtained. OUTPT ACETAMINOPHEN 500MG TAB (Status = Active) TAKE TWO TABLETS BY MOUTH TWICE DAILY FOR PAIN Rx# [id number] Last Released: 06/25/24 Qty/Days Supply: 400/ Rx Expiration Date: 06/24/25 Refills Remainin Indication: FOR PAIN OUTPT ASPIRIN 81MG EC TAB (Status = Active) TAKE ONE TABLET BY MOUTH ONCE DAILY FOR PAIN TO PREVENT STROKE/HEART ATTACK Rx# [id number] Last Released: 06/25/24 Qty/Days Supply: 120/90 Rx Expiration Date: 06/24/25 Refills Remainin Indication: FOR PAIN OUTPT ATORVASTATIN CALCIUM 80MG TAB (Status = ) TAKE ONE TABLET BY MOUTH ONCE DAILY FOR CHOLESTEROL Rx# [id number] Last Released: 04/04/24 Qty/Days Supply: 90 Rx Expiration Date: 05/30/24 Refills Remainin OUTPT ATORVASTATIN CALCIUM 80MG TAB (Status = Active) TAKE ONE-HALF TABLET BY MOUTH ONCE DAILY FOR CHOLESTEROL Rx# [id number] Last Released: 06/25/24 Qty/Days Supply: 45 Rx Expiration Date: 06/24/25 Refills Remainin Indication: FOR HIGH CHOLESTEROL OUTPT EPINEPHRINE (EQV-EPI-PEN) 0.3MG/0.3ML (Status = Active) INJECT DIRECTED INTRAMUSCULARLY ONCE DAILY NEEDED FOR LIFE THREATENING ALLERGIC REACTION Rx# [id number] Last Released: 02/11/24 Qty/Days Supply: Rx Expiration Date: 02/11/25 Refills Remainin Indication: FOR LIFE THREATENING ALLERGIC REACTION OUTPT FLUTICASONE PROP 50MCG 120D NASAL INHL (Status = ) INSTILL 1 SPRAY INTO EACH NOSTRIL AT BEDTIME FOR NASAL IRRITATION/INFLAMMATION Rx# [id number] Last Released: 07/12/23 Qty/Days Supply: 09/04 Rx Expiration Date: 07/04/24 Refills Remainin Indication: FOR NASAL IRRITATION/INFLAMMATION OUTPT ISOSORBIDE MONONITRATE 30MG SA TAB (Status = Discontinued) TAKE ONE TABLET BY MOUTH ONCE DAILY TO PREVENT ANGINA Rx# [id number] Last Released: 05/29/24 Qty/Days Supply: Rx Expiration Date: 05/30/24 Refills Remainin OUTPT ISOSORBIDE MONONITRATE 30MG SA TAB (Status = Active/Suspended) TAKE ONE TABLET BY MOUTH ONCE DAILY TO PREVENT ANGINA Rx# [id number] Last Released: Qt Supply: Rx Expiration Date: 07/17/25 Refills Remainin OUTPT KETOROLAC TROMETHAMINE 0.5% OPH SOLN (Status = Active) INSTILL 1 DROP INTO THE AFFECTED EYE(S) THREE TIMES A DAY FOLLOWING SURGERY FOR 3 WEEKS. SEPARATE BOTTLE FOR EACH EYE. Rx# [id number] Last Released: 02/16/24 Qty/Days Supply: 05/26 Rx Expiration Date: 02/12/25 Refills Remainin OUTPT LATANOPROST 0.005% OPH SOLN (Status = Active) INSTILL 1 DROP INTO EACH EYE AT BEDTIME TO REDUCE PRESSURE IN THE EYE Rx# [id number] Last Released: 07/15/24 Qty/Days Supply: Rx Expiration Date: 11/07/24 Refills Remainin OUTPT LEVETIRACETAM 250MG TAB (Status = Discontinued) TAKE ONE TABLET BY MOUTH AT BEDTIME Rx# [id number] Last Released: 05/29/24 Qty/Days Supply: Rx Expiration Date: 07/04/24 Refills Remainin OUTPT LEVETIRACETAM 250MG TAB (Status = Active/Suspended) TAKE ONE TABLET BY MOUTH AT BEDTIME Rx# [id number] Last Released: Qty/Days Supply: Rx Expiration Date: 07/17/25 Refills Remainin OUTPT LISINOPRIL 20MG TAB (Status = Active) TAKE ONE TABLET BY MOUTH ONCE DAILY FOR HIGH BLOOD PRESSURE TO CONTROL BLOOD PRESSURE Rx# [id number] Last Released: 05/13/24 Qty/Days Supply: Rx Expiration Date: 02/11/25 Refills Remainin Indication: FOR HIGH BLOOD PRESSURE OUTPT METOPROLOL SUCCINATE 25MG SA TAB (Status = Discontinued) TAKE ONE TABLET BY MOUTH ONCE DAILY FOR BLOOD PRESSURE/HEART Rx# [id number] Last Released: 04/04/24 Qty/Days Supply: Rx Expiration Date: 05/30/24 Refills Remainin OUTPT METOPROLOL SUCCINATE 25MG SA TAB (Status = Active) TAKE ONE TABLET BY MOUTH ONCE DAILY FOR BLOOD PRESSURE/HEART Rx# [id number] Last Released: 07/17/24 Qty/Days Supply: Rx Expiration Date: 07/17/25 Refills Remainin OUTPT PREDNISOLONE ACETATE 1% OPH SUSP (Status = Active) INSTILL 1 DROP INTO THE AFFECTED EYE(S) THREE TIMES A DAY FOLLOWING SURGERY FOR 3 WEEKS. SEPARATE BOTTLE FOR EACH EYE. Rx# [id number] Last Released: 02/16/24 Qty/Days Supply: 05/26 Rx Expiration Date: 02/12/25 Refills Remainin OUTPT TAMSULOSIN HCL 0.4MG CAP (Status = Discontinued) TAKE ONE CAPSULE BY MOUTH AT BEDTIME FOR ENLARGED PROSTATE Rx# [id number] Last Released: 04/21/24 Qty/Days Supply: Rx Expiration Date: 07/04/24 Refills Remainin Indication: FOR ENLARGED PROSTATE OUTPT TAMSULOSIN HCL 0.4MG CAP (Status = Active) TAKE ONE CAPSULE BY MOUTH AT BEDTIME FOR ENLARGED PROSTATE Rx# [id number] Last Released: 07/17/24 Qty/Days Supply: Rx Expiration Date: 07/17/25 Refills Remainin Indication: FOR ENLARGED PROSTATE SUPPLIES /rowena KNIGHT MD STAFF PHYSICIAN Signed: 08/04/2024 09:38 08/04/2024 ADDENDUM STATUS: COMPLETED Asked to call Fall 2025 to ask me to schedule u/s. /rowena KNIGHT MD STAFF PHYSICIAN Signed: 08/04/2024 09:40 JESUS KNIGHT [facility] [place] [facility]
--- OUTSIDE RECORDS SUMMARY | 2024-08-07 11:32 | XMS_ITS | Data Portability ---
Author Organization [facility] Address [address] [place] [address] Assessment No assessment recorded. Plan of Treatment Reminders Order Date Submit Date Provider Last Modified By Organization Details Last Modified Time Details Appointments None recorded . Lab HbA1c (hemoglo bin A1c), blood 021 [facility], [address] [place] [address], [place], [address], 1 15:20:43 CMP, serum or plasma [facility], [address] [place] [address], [place], [address], 1 15:15:41 lipid panel, serum [facility], [address] [place] [address], [address], 1 15:15:41 Referral None recorded . Procedures None recorded . Surgeries None recorded . Imaging None recorded . Medication Orders None recorded . Patient TargetsNo targets recorded. Patient Instructions Encounter Date Encounter Id Patient Instructions Last Modified By Organization Details Last Modified Time 02/18/2020 [id number] lumbar spinal stenosis: care instructions Not available 02/18/2020 11:02:35 high cholesterol : care instructions Not available 02/18/2020 11:02:35 10/18/2020 [id number] pulse oximetry* [email or web address] Not available 10/18/2020 15:07:56 Reason for Referral None Reported. Results Created Date Observation Date Name Description Value Unit Range Abnormal Flag Note LastModifiedBy Organization Detail LastModifiedTime 10/19/19 21 10/18/2020 pulse oxime try* Result 92 Not Available [facility] [address] [address], [place], [address], 10/18/2020 14:48:01 Result Notes None recorded. Problems Name Problem SNOMED Code Status Onset Date Resolution Date Notes Provider Name and Address Organization Details Recorded Time Hyperten sive disorder 68955821 Active 2019 Not Available [facility] 0 12:59:03 Hyperlip idemia 91031020 Active 2019 Not Available [facility] 0 12:59:03 Benign prostati c hyperpla jimmy 176277042 Active 2019 Not Available [facility] 0 12:59:03 Chronic obstruct gómez pulmonar y disease 01496102 Active 2019 Not Available [facility] 0 12:59:03 Spinal stenosis of lumbar region 62032241 Active 2019 Not Available [facility] 0 12:59:03 Solitary nodule of lung 099343028 Active 2019 Not Available [facility] 0 12:59:03 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 Medical Equipment None Reported. Allergies Allergen ID Allergen Name Allergen Category Reaction Reaction Severity Criticality Documentation Date Start Date Code Code System Note Provider Name and Address Organization Details Recorded Time 3974 Medicinal product containin g penicilli n and acting as antibacte rial agent (product) medicatio n Not available Not available Not available 02/18/2020 06151 05 SNOMED Ronny Rashid DO [address] [facility], [place], [address], [facility] 0 10:42:11 3975 honey bee venom medicatio n Not available Not available Not available 02/18/2020 75727 7 RxNorm Ronny Rashid, DO [address] [place], [address], [facility] 0 10:42:37 Medications Name Sig Start Date Stop Date Status Note LastModified by Organization Details LastModified Time latanoprost 0.005 % eye drops INSTILL 1 DROP INTO BOTH EYES AT BEDTIME active Not Available Not Available No t Available atorvastati n 80 mg tablet Take 1 tablet every day by oral route. active Not Available Not Available No t Available amlodipine 5 mg tablet Take 1 tablet every day by oral route. active Not Available Not Available No t Available tamsulosin 0.4 mg capsule Take 1 capsule every day by oral route. active Not Available Not Available No t Available aspirin 81 mg chewable tablet Chew 1 tablet every day by oral route. active Not Available Not Available No t Available pravastatin 20 mg tablet Take 1 tablet every day by oral route. 10/18 completed Not Available Not Available Not Available hydrochloro thiazide 25 mg tablet Take 1 tablet every day by oral route. 06/30 completed Not Available Not Available Not Available methylpredn isolone 4 mg tablets in a dose pack on day 1 take 6 tablets by mouth then on day 2 take 5 tablets by ... (REFER TO PRESCRIPT ION NOTES). 06/30 completed Not Available Not Available Not Available Vitamin D3 1,000 units daily active Not Available Not Available No t Available latanoprost at night 10/18 completed Not Available Not Available Not Available ProAir HFA 90 mcg/actuati on aerosol inhaler Inhale 2 puffs every 4 hours by inhalatio n route. active Not Available Not Available No t Available Zyrtec 10 mg capsule Take 1 capsule every day by oral route. active Not Available Not Available No t Available Fluad Quad (6 5yr up)(PF) 60 mcg (15 mcg x 4)/0.5mL IM syringe ADM 0.5ML IM UTD 10/15 completed Not Available Not Available Not Available Vitals Date Recorded Body weight Body mass index (BMI) Body height Heart rate Oxygen saturation Oxygen saturation in Arterial blood by Pulse oximetry Systolic blood pressure Diastolic blood pressure Provider Name and Address Organization Details Last Updated DateTime 0 89631.7 3 g 26.1 kg/m2 172.72 cm 79 /min 98 % 98 % 140 mm[Hg] 72 mm[Hg] Ronny StaffordMicki Rashid, DO [address] [place], [address], [facility] 0 10:43:39 Date Recorded Body height Body mass index (BMI) Body weight Heart rate Oxygen saturation Oxygen saturation in Arterial blood by Pulse oximetry Systolic blood pressure Diastolic blood pressure Provider Name and Address Organization Details Last Updated DateTime 0 172.72 cm 26.3 kg/m2 20607.2 g 83 /min 97 % 97 % 130 mm[Hg] 78 mm[Hg] Aimee Bobo [facility] 0 10:11:56 Date Recorded Body height Body mass index (BMI) Body weight Heart rate Oxygen saturation Oxygen saturation in Arterial blood by Pulse oximetry Systolic blood pressure Diastolic blood pressure Provider Name and Address Organization Details Last Updated DateTime 1 172.72 cm 26.8 kg/m2 97516.3 3 g 63 /min 92 % 92 % 148 mm[Hg] 86 mm[Hg] Helene Foley [facility] 1 14:55:03 Social History Question Answer Notes LastModified by Organizat ion Details LastModified Time What Was The Date Of Your Most Recent Tobacco Screening? 10/18/2020 [email or web address] Information not available 10/18/2020 Sex: Unknown Functional Status None recorded. Mental Status None recorded. Family History Nothing Reported. Medical History No medical history recorded. Immunizations Vaccine Type Date Status Note Provider Nam e and Address Organization Details Recorded Time Pneumococcal conjugate PCV 13 9 completed Aimee morrison [facility] 06/30/2020 10:04:04 Tdap 5 completed Aimee morrison [facility] 06/30/2020 10:04:04 zoster, unspecified formulation 9 completed Aimee morrison [facility] 06/30/2020 10:04:04 zoster, unspecified formulation 9 completed Aimee morrison [facility] 06/30/2020 10:04:04 Influenza, split virus, quadrivalent, preservative 0 completed Aimee morrison [facility] 06/30/2020 10:04:04 COVID-19, mRNA, LNP-S, PF, 100 mcg/0.5mL dose or 50 mcg/0.25mL dose 1 completed Helene morrison [facility] 10/18/2020 14:55:35 COVID-19, mRNA, LNP-S, PF, 100 mcg/0.5mL dose or 50 mcg/0.25mL dose 1 completed Helene morrison [facility] 10/18/2020 14:55:43 Past Encounters Encounter ID Performer Location Encounter Start Date Encounter Closed Date Diagnosis/Indication Diagnosis SNOMED-CT Code Diagnosis ICD10 Code [id number] Ronny Rashid DO [facility] [address] [place] [address] [place] [address] 02/18/2020 10:37:13 02/18/2020 11:04:57 Hypertensive disorder 95464102 I10 Spinal prakash nosis of lumbar region 38533532 M48.061 Hyperlipidemia 79581938 E78.5 Elderly fall 795748834 R 29.6 [id number] SANDY ZURITA [facility] [address] [place] [address] 06/30/2020 09:40:14 06/30/2020 10:47:00 Chronic obstructive pulmonary disease 13423559 J44.9 Elderly fall 332541320 R 29.6 Hypertensive disorder 38 199858 I10 Drug-induc ed hyponatremia 286786656 T50.905A [id number] SANDY ZURITA [facility] [address] [place] [address] [place] [address] 10/18/2020 14:45:40 10/18/2020 16:13:40 Cerebrovascular accident 831360684 I63.012 Chronic ob structive pulmonary disease 61434119 J42 Hypertensive disorder 38 903638 I10 Hyperlipidemia 74806920 E78.00 Impaired f asting glycemia 143080059 R73.01 Health Concerns Section Related Observation LastModified by Organization Detai ls LastModified Time None Recorded Concern Status LastModified by Organization Details LastModified Time None Recorded Advance Directives Directive None Recorded Payers Encounter Date Sequence Insurance Name Policy Number Policy Gonzalez Covered Member ID Gonzalez Member ID Guarantor Name 02/18/2020 2 [place] [id number] Mikie Benderwski [id number] Mikie Cykomel 02/18/2020 1 [place] Mikiealessandra Antonioki [id number] Mikie Cykowski 06/30/2020 2 [place] [id number] Mikie Litkowski [id number] Mikie Cykoliliansonny 06/30/2020 1 [place] Mikie L Cykowski [id number] Mikie Cykowski 10/18/2020 2 [place] [id number] Mikie Cykolilianki [id number] Mikie Cykowski 10/18/2020 1 [place] Mikiealessandra Antonioki [id number] Mikie Cykowski Notes Date Note Type Note Provider Name a nd Address Organization Details Recorded Time 02/18/2020 text/html Hypertension F/UReported bypatient.Medicati ons:taking medications as directed; no side effects from medication Lifestyle:regular exercise; limiting/avoiding salt; compliant with low salt diet Associated Symptoms:no dizziness; no lightheadedness; no chest pain; no shortness of breath; no palpitations; no edema; no calf pain with exertion; no headacheNotes:has fallen several times and injured both hips and he had no need for surgery her for check up and is doing relates has [facility] and now here has a hx of back surgery and did not do well as he still has a hard time walking Ronny Rashid, DO [address] [facility], [place], [address], [facility] 02/18/2020 11:02:58 06/30/2020 text/html hospital d/c the patient reported to hospital the patient reports that he passed out the patient states that he went up to go the bathroom and tripped over a water bottle and fell, ended up on the floor and passed out not sure if he just fell asleep on the floor or actually fainted woke up and found him on the floor, unresponsive and called the ambulance the [facility] evaluated him, did not think it was related to arythmia found him to be hyponatremic, did an IV of normal saline, which improved his sodium switched his HTCZ to amlodipine otherwise no other medication changes is seeing cardiology next month doing fine today, adjusting well to the medication, with no side effects no fever, no sob, no cough, no abd pain, no chest pain, no n/v/d, no fatigue, no sore throat, no wheezing SANDY ZURITA [address] [place], [address], [facility] 06/30/2020 10:29:18 10/18/2020 text/html hospital fu the patient presents to the office today for fu after hospital d/c for stroke HOSPITAL COURSE: admitted for right lower and upper extremity weakness, started on tPA with reversal of hemiparesis CT showed absent or complete occlusion of the left vertebral artery with 70% stenosis right internal carotid and 60% of left artery (no mention of the name) normal sinus rhythm EKG echo two months ago reveal infarct of the interior wall with reduced EF at 40% admitted to ICU with resolution of his symptoms started on ASA 81 mg and high dose statin (80 mg of atorvastatin) MRI showed small focus of the left posterior basal ganglia with no large infarct d/c with symptom resolution TODAY: CVA: patient started on atorvastatin 80 mg and ASA 81 mg everyday will need fu lab work in a few months with HLD, CMP, CBC HTN: usually good control on amlodipine 5 mg, may need to increase dosage of optimal control of HTN BP in office today was 148/86, however at recheck it was 110/60 COPD: O2 saturation on RA in office is 92% the patient has fu on the for pre op clearance for stent at [facility] office SANDY ZURITA [address], [place], [address], [facility] 10/18/2020 15:18:44
--- OUTSIDE RECORDS SUMMARY | 2024-08-07 11:32 | XMS_ITS ---
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 Promoter Retail Pet Name Role Phone RUBI CROWE Primary Care [...] O MEDEX BRONZ E Jun 06, 2007 [id number] [phone] NEVIN WILLIAMSON PATIENT ANTHEM BCBS OF [place] MEDICARE SUPPLEMEN SALVATORE PSUED O MEDEX BRONZ E Jun 06, 2007 [id number] [phone] NEVIN WILLIAMSON PATIENT ANTHEM BCBS OF CT (BLUECARD) MEDICARE SUPPLEMEN [place] PSUED O MEDEX BRONZ E Jun 06, 2007 [id number] NEVIN WILLIMASON PATIENT [place] MED[place] SUPPLEMEN [place] MEDEX BRONZ E Jun 06, 2007 [id number] NEVIN WILLIAMSON PATIENT [place] MEDEX BRONZ E Jun 06, 2007 [id number] [phone] NEVIN WILLIAMSON PATIENT MEDICARE (WNR) MEDICARE (M) PART B Jun 06, 2007 PART B [id number] NEVIN WILLIAMSON PATIENT MEDICARE (WNR) MEDICARE (M) PART B Jun 06, 2007 PART B [id number] [phone] NEVIN WILLIAMSON PATIENT MEDICARE (WNR) MEDICARE (M) PART A Jan 04, 2003 PART A [id number] [phone] NEVIN WILLIAMSON PATIENT MEDICARE (WNR) MEDICARE (M) PART A Jan 04, 2003 PART A [id number] NEVIN WILLIAMSON PATIENT MEDICARE (WNR) MEDICARE (M) PART B Jan 04, 2003 PART B [id number] [phone] NEVIN WILLIAMSON PATIENT MEDICARE (WNR) MEDICARE (M) PART A Jan 04, 2003 PART A [id number] [phone] NEVIN WILLIAMSON PATIENT Selected Encounter This section includes the information on record at CT for the Encounter. Date/Time Encounter Type Encounter Description Reason Pro vider Source Jul 21, 2024 04:22 PM Outpatient Encounter COMMUNITY CARE CONSULT IHE [...] 04, 2024 09:30 AM AMBULATORY - MEDICINE [facility] [place] [facility] Aug 12, 2024 11:00 AM AMBULATORY - MEDICINE [facility] [place] [facility] Aug 14, 2024 09:00 AM AMBULATORY - MEDICINE [facility] [place] [facility] December 11, 2024 10:00 AM AMBULATORY - MEDICINE [facility] [place] [facility] December 11, 2024 11:00 AM AMBULATORY - MEDICINE [facility] Active, Pending, [...] Jun 23, 2024 12:35 PM Consult Order [facility]-PHYSICAL THERAP[facility] Cons Cytology Teacher's Choice [facility] Lab Results: +/- 30 [...] Range Comment Jul 15, 2024 10:48 AM [facility] THYROID T4 FREE(FT4) (WROX) Specimen Type: SERUM No comment entered. Ordering Provider: JESUS KNIGHT Report Released Date/Time: Jun 12, 2024 08:46 AM Reporting Lab: [facility] [address] [facility] [address] Performing Lab: [facility] [address] [facility] [place] [address] THYROID T4 FREE(FT4) (WROX) 1.14 ng/dL 0.6-1.6 Jul 15, 2024 10:48 AM [facility] TSH Specimen Type: SERUM No comment entered. Ordering Provider: JESUS KNIGHT Report Released Date/Time: Jun 12, 2024 08:46 AM Reporting Lab: [facility] [address] [facility] [address] Performing Lab: [facility] [address] [facility] [address] TSH 0.41 u[IU]/mL 0.35-5.00 Jul 15, 2024 10:48 AM [facility] CBC Specimen Type: BLOOD No comment entered. Ordering Provider: JESUS KNIGHT Report Released Date/Time: Jun 12, 2024 08:46 AM Reporting Lab: [facility] [address] [facility] [address] Performing Lab: [address] [address] WBC 6.11 10*3/uL 4.50-11.00 RBC 4.31 10*6/uL 4.23-5.66 HGB 13.6 g/dL 12.8-17 HCT 40.2 39.2-50.4 MCV 93.3 fL 82-99 MCHC 33.8 g/dL 30.8-35.1 PLT 247 10*3/uL 140-360 RDW-CV 13.4 12.0-16.0 MCH 31.6 pg 26.2-32.6 Jul 15, 2024 10:48 AM [facility] BASIC METABOLIC PANEL (non-fasting) Specimen Type: SERUM No comment entered. Ordering Provider: JESUS KNGIHT Report Released Date/Time: Jun 12, 2024 08:46 AM Reporting Lab: [facility] [address] [facility] [address] Performing Lab: [address] [address] UREA NITROGEN 11 mg/dL 7-25 GLUCOSE 101 [...] VA-TOBACCO FORMER USER CT [facility] [place] [facility] Tobacco Use History This section includes a history of the smoking, or tobacco-related health factors, that were collected on or before the date of the Encounter. The data comes from the CT facility where the Encounter took place. Date/Time Smoking Status/Tobac co Use Comment Facility Jan 08, 2024 10:00 AM VA-TOBACCO QUIT 5 TO < [address] [facility] [place] [facility] May 03, 2022 01:00 PM VA-TOBACCO FORMER USER [facility] [place] [facility] May 03, 2022 01:00 PM VA-TOBACCO QUIT [address] [facility] [place] [facility] May 17, 2021 09:00 AM VA-TOBACCO FORMER USER CT [facility] [place] [facility] May 17, 2021 09:00 AM VA-TOBACCO QUIT [address] [facility] [place] [facility] May 28, 2020 03:00 PM VA-TOBACCO FORMER USER CT [facility] [place] [facility] May 28, 2020 03:00 PM VA-TOBACCO QUIT 5 TO < [address] [facility] [place] [facility] Oct 04, 2018 11:04 AM VA-TOBACCO FORMER USER CT [facility] [place] [facility] Oct 04, 2018 11:04 AM VA-TOBACCO QUIT 1 TO < [address] [facility] [place] [facility] Jan 24, 2018 01:[address] [facility] [place] [facility] Jan 24, 2018 01:52 PM QUIT TOBACCO USE IN PAST YEAR quit ciagarettes [address] [facility] [place] [facility] Radiology Reports: +/- 30 days of the [...] AM ULTRASOUND NECK (THYROID,HEAD,SOFT TISSUE): NEVIN WILLIAMSON [id number] -[phone] M Exm Date: JUN 23, 2024@10:25 Req Phys: JESUS KNIGHT Loc: NHM/ENDOCRINE (Req'g Loc) Img Loc: ULTRASOUND Service: Unknown [facility] [place] [address] (Case 20 COMPLETE) ULTRASOUND NECK (THYROID,HEAD,SOF(US Detailed) CPT:90632 Reason for Study: multinodular goiter Clinical History: Report Status: Verified Date Reported: JUN 23, 2024 Date Verified: JUN 23, 2024 Tag Marker E-Sig:/ES/GUILLERMINA NUNES JR Report: Study: Thyroid ultrasound. [...] Committee. Tessler et al., Journal of the [employer] 2017;14:587-595. Primary Diagnostic Code: No immediate attention required Primary Interpreting Staff: GUILLERMINA NUNES JR, Radiologist (Tag Marker) /GUILLERMINA MOTA JR [facility] [place] [facility] Encounter Notes: All associated encounter notes This section contains the clinical notes associated to the Encounter. Date/Time Encounter Note(s) Provider Source Jul 21, 2024 04:22 PM NONVA NOTE: LOCAL TITLE: [facility] SELF PRESENTING CARE COORD PLAN STANDARD TITLE: NONVA NOTE DATE OF NOTE: JUL 21, 2024@16:22 ENTRY DATE: JUL 21, 2024@16:23:02 AUTHOR: BRANDY BLANCAS COSIGNER: URGENCY: STATUS: COMPLETED Emergency Notification Intake Date Presenting to the Facility: Jun Method of Contact: Notified from Cater to u worklist Notification ID: [id number] [facility] Referral #: [id number] [facility] [place] Name: Hospital: [facility] Address: City: [place] State: [place] Zip Code: Phone : Community Facility Point of Contact: Name: Afua Phone: Chief complaint: weakness Primary Diagnosis: Disposition Discharged Date of discharge: Jun Discharge to Comment: ER Only /catalina/ BRANDY ARAMBULA Signed: 07/21/2024 16:26 Receipt Acknowledged By: 07/24/2024 13:05 /catalina/ Liliana HAWKINS,RN,CCM TRANSFER/TRAVELING COORDINATOR BRANDY BLANCAS TUCKERMAN
== END 2024-08-07 11:09 | disposition home or self-care (01) ==
PROVIDERS: PCP Internal Medicine; Visit Provider Surgery Vascular Surgery
DX: I65.23 Occlusion and stenosis of bilateral carotid arteries (principal)
CPT/HCPCS: 99214; G2211

== ENCOUNTER → 2024-08-07 10:47 | Outpatient (BNVA) | payer OTHER, SELFPAY | PROVIDERS: PCP Internal Medicine; Visit Provider Surgery Vascular Surgery | DX: I65.23 Occlusion and stenosis of bilateral carotid arteries (principal) | CPT/HCPCS: 99212 ==

== ENCOUNTER → 2024-10-07 10:50 | Outpatient (REF) | payer OTHER, SELFPAY ==
--- NOTE | 2024-10-07 10:53 | CA_ITS ---
Transthoracic Echocardiogram Patient (Last, First, Middle): Mikie Paul L Gender: Male Date of : 1940 Age: 84 Procedure Date: 10/07/2024 Procedure Type: Transthoracic Echocardiogram Location: OP Height: 175.26 cm Weight: 81.19 kg BSA: 1.97 m2 Heart Rate: bpm BP: 160 / 72 mmHg Laundry Housekeeping Aide: TO Referring MD: Christopher Carmona MD Hr Administrator: Lorenzo Lancaster MD Symptoms: I25.5 - Ischemic cardiomyopathy Study Quality: Fair/unable to tolerate ECG Rhythm: Sinus Conclusions: - 1. Moderately dilated left ventricle with moderately to severely reduced LV ejection fraction of 30-35% with elevated filling pressures with underlying regional wall motion abnormality consistent with ischemic cardiomyopathy 2. Mildly dilated left atrium 3. Mild aortic stenosis and regurgitation 4. Mildly dilated ascending aorta at 3.8 cm 5. No gross pericardial effusion Findings Procedure Information The study quality is limited by the patients inability to tolerate the test. Left Ventricle Moderately increased left ventricular cavity size. There is normal left ventricular wall thickness. The left ventricular systolic function is moderate to severely decreased. The visually estimated ejection fraction is between 30-35%. Spectral Doppler is indicative of an impaired relaxation filling pattern. Elevated left atrial and left ventricular end-diastolic pressures. E/E prime ratio is >15, consistent with elevated filling pressures. Wall Motion Rest Echo Findings The inferolateral wall and apical septum segment are hypokinetic. The inferoseptal wall and inferior wall are akinetic. All other scored wall segments showed normal motion. Right Ventricle Normal right ventricular cavity size and systolic function. Atria The left atrium is mildly dilated. Interatrial shunt cannot be excluded. The right atrium is normal in size. Aortic Valve There is mild calcification of the aortic valve. There is mild thickening of the aortic valve. There is mild aortic valve stenosis. There is no aortic valve regurgitation. Mitral Valve There is mild anterior and posterior mitral leaflet thickening. The posterior mitral leaflet has restricted mobility. There is mild mitral valve regurgitation. There is no mitral valve stenosis. Pulmonic Valve The pulmonic valve was not well visualized. Tricuspid Valve The tricuspid valve was not well visualized. Tricuspid regurgitation envelope is inadequate for calculation of right ventricular systolic pressure. Normal right atrial pressure. Great Vessels The pulmonary artery was not well visualized. There is mild dilatation of the ascending aorta measuring 3.80 cm. Small plaque is seen in the sino tubular ridge. Venous The inferior vena cava is normal in size and collapses greater than 50% with inspiration. Pericardium/Pleural There is no evidence of pericardial effusion. Prior Study Comparison Changes noted compared to prior study dated: 11/25/2021. LV systolic function is mildly reduced Measurements 2D Linear Measurements IVSd: 1.07 0.6-0.9/0.6-1.0 cm LVIDd: 6.16 3.9-5.3/4.2-5.9 cm LVIDd Index: 3.13 2.4-3.2/2.2-3.1 cm/m2 LVIDs: 5.17 2.0-3.6 cm LVPWd: 0.86 0.7-1.1 cm LA Diam: 4.20 2.7-3.8/3.0-4.0 cm LAIDs Index: 2.13 1.5-2.3 cm/m2 LV Mass: 306.54 67-162/88-224 g LV Mass Index: 155.60 43-95/49-115 g/m2 LVOT Diam: 2.00 3.0+(-)1.3 cm 2D Systolic Function EF 4C: 31.70 >55% EF 2C: 35.00 >55% EF BiP: 34.10 >55% Mitral Valve MV Pk E: 0.70 MV PK A: 1.08 MV Decel Time: 231.00 E/A: 0.70 E'Lateral: 4.68 E'Medial: 3.70 E/E' Med: 19.00 E/E' Lat: 15.00 PHT: 68.00 MVA PHT: 3.24 Decel [place]: 3.04 Aortic Valve AoV Pk Esau: 1.59 AoV Mn Esau: 1.20 AoV VTI: 0.39 AoV Pk Grad: 10.00 Aov Mn Grad: 6.00 SIDNEY Cont.VTI: 1.55 LVOT LVOT Pk Esau: 0.74 LVOT Mn Esau: 0.52 LVOT VTI: 0.19 LVOT Pk Grad: 2.00 LVOT Mn Grad: 1.00 LVOT Diam: 2.00 LVOT Area: 3.14 Diastolic Function MV Pk E: 0.70 MV Pk A: 1.08 E/A: 0.70 E'Medial: 3.70 E/E' Med: 19.00 E' Laterial: 4.68 E/E' Lat: 15.00 Right Ventricle TAPSE (mm): 20.70 TVS' Esau: 10.00 Tricuspid Valve RA Press: 3.00 Great Vessels Aorta Sinus of Valsalva: 3.88 2.0-3.5 cm Ao Asc: 3.80 2.1-3.4 cm Updated in Other Vendor System with Status of Final Lorenzo Lancaster MD electronically signed on 10/08/2024 3:29:21 PM with status of Final
--- OUTSIDE RECORDS SUMMARY | 2024-10-07 13:19 | XMS_ITS | Data Portability ---
Author Organization [facility] Address [address] [place] [address] Assessment No assessment recorded. Plan of Treatment Reminders Order Date Submit Date Provider Last Modified By Organization Details Last Modified Time Details Appointments None recorded . Lab HbA1c (hemoglo bin A1c), blood 021 [facility], [address] [place] [address], [place], [address], 1 15:20:43 CMP, serum or plasma [facility], [address] [place] [address], [place], [address], 1 15:15:41 lipid panel, serum [facility], [address] [place] [address], [address], 1 15:15:41 Referral None recorded . Procedures None recorded . Surgeries None recorded . Imaging None recorded . Medication Orders None recorded . Patient TargetsNo targets recorded. Patient Instructions Encounter Date Encounter Id Patient Instructions Last Modified By Organization Details Last Modified Time 02/18/2020 [id number] lumbar spinal stenosis: care instructions Not available 02/18/2020 11:02:35 high cholesterol : care instructions Not available 02/18/2020 11:02:35 10/18/2020 [id number] pulse oximetry* rtryba Not available 10/18/2020 15:07:56 Reason for Referral None Reported. Results Created Date Observation Date Name Description Value Unit Range Abnormal Flag Note LastModifiedBy Organization Detail LastModifiedTime 10/19/19 21 10/18/2020 pulse oxime try* Result 92 Not Available [facility] [address] [facility] [address], [place], [address], 10/18/2020 14:48:01 Result Notes None recorded. Problems Name Problem SNOMED Code Status Onset Date Resolution Date Notes Provider Name and Address Organization Details Recorded Time Hyperten sive disorder 47172418 Active 2019 Not Available [facility] 0 12:59:03 Hyperlip idemia 43734300 Active 2019 Not Available [facility] 0 12:59:03 Benign prostati c hyperpla jimmy 399710759 Active 2019 Not Available [facility] 0 12:59:03 Chronic obstruct gómez pulmonar y disease 73546809 Active 2019 Not Available [facility] 0 12:59:03 Spinal stenosis of lumbar region 21447730 Active 2019 Not Available [facility] 0 12:59:03 Solitary nodule of lung 892880644 Active 2019 Not Available [facility] 0 12:59:03 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 Medical Equipment None Reported. Allergies Allergen ID Allergen Name Allergen Category Reaction Reaction Severity Criticality Documentation Date Start Date Code Code System Note Provider Name and Address Organization Details Recorded Time 3974 Product containin g penicilli n (product) medicatio n Not available Not available Not available 02/18/2020 70867 8001 SNOMED Ronny Rashid DO [address] [place], [address], [facility] 0 10:42:11 3975 honey bee venom medicatio n Not available Not available Not available 02/18/2020 65743 7 RxNorm Ronny Rashid, DO [address] [place], [address], [facility] 0 10:42:37 Medications Name Sig [...] Not Available No t Available Fluad Quad 4204-1172(6 5yr up)(PF) 60 mcg (15 mcg x 4)/0.5mL IM syringe ADM 0.5ML IM UTD 10/15 completed Not Available Not Available Not Available Vitals Date Recorded Body weight Body mass index (BMI) Body height Heart rate Oxygen saturation Oxygen saturation in Arterial blood by Pulse oximetry Systolic blood pressure Diastolic blood pressure Provider Name and Address Organization Details Last Updated DateTime 0 03613.7 3 g 26.1 kg/m2 172.72 cm 79 /min 98 % 98 % 140 mm[Hg] 72 mm[Hg] Ronny Rashid, DO [address] [place], [address], [facility] 0 10:43:39 Date Recorded Body height Body mass index (BMI) Body weight Heart rate Oxygen saturation Oxygen saturation in Arterial blood by Pulse oximetry Systolic blood pressure Diastolic blood pressure Provider Name and Address Organization Details Last Updated DateTime 0 172.72 cm 26.3 kg/m2 69750.2 g 83 /min 97 % 97 % 130 mm[Hg] 78 mm[Hg] Aimee Bobo [facility] 0 10:11:56 Date Recorded Body height Body mass index (BMI) Body weight Heart rate Oxygen saturation Oxygen saturation in Arterial blood by Pulse oximetry Systolic blood pressure Diastolic blood pressure Provider Name and Address Organization Details Last Updated DateTime 1 172.72 cm 26.8 kg/m2 09180.3 3 g 63 /min 92 % 92 % 148 mm[Hg] 86 mm[Hg] Helene Foley [facility] 1 14:55:03 Social History Question Answer Notes [...] conjugate PCV 13 9 completed Aimee morrison [facility] 06/30/2020 10:04:04 Tdap 5 completed Aimee morrison [facility] 06/30/2020 10:04:04 zoster, unspecified formulation 9 completed Aimee morrison [facility] 06/30/2020 10:04:04 zoster, unspecified formulation 9 completed Aimee morrison [facility] 06/30/2020 10:04:04 Influenza, split virus, quadrivalent, preservative 0 completed Aimee morrison [facility] 06/30/2020 10:04:04 COVID-19, mRNA, LNP-S, PF, 100 mcg/0.5mL dose or 50 mcg/0.25mL dose 1 completed Helene morrison [facility] 10/18/2020 14:55:35 COVID-19, mRNA, LNP-S, PF, 100 mcg/0.5mL dose or 50 mcg/0.25mL dose 1 completed Helene morrison [facility] 10/18/2020 14:55:43 Past Encounters Encounter ID Performer Location Encounter Start Date Encounter Closed Date Diagnosis/Indication Diagnosis SNOMED-CT Code Diagnosis ICD10 Code Diagnosis Note [id number] Ronny Rashid DO [facility] [address] [facility],[address] [place] [employer] [place] [address] 02/18/2020 10:37:13 02/18/2020 11:04:57 Hypertensive disorder 34268331 I10 has been stable and doing ok on his hctz which has been good for the past decade Spinal prakash nosis of lumbar region 99045831 M48.061 has chronic changes and persistant pain Hyperlipidemia 50778611 E78.5 cholesterl med oki Elderly fall 438914180 R 29.6 last fall 1 yr ago [id number] SANDY ZURITA [facility] [address] [facility],[address] [place] [place] [employer] [place] [address] 06/30/2020 09:40:14 06/30/2020 10:47:00 Chronic obstructive pulmonary disease 83551191 J44.9 stable Elderly fall 131398867 R 29.6 stable, per patient thinks he tripped on a water bottle Hypertensive disorder 38 622374 I10 BP is fine today stable on medication change Drug-induc ed hyponatremia 785930089 T50.905A resolved, stopped HTCZ and alternativ e [id number] SANDY ZURITA [facility] [address] [facility],[place] [address] [employer] [place] [address] 10/18/2020 14:45:40 10/18/2020 16:13:40 Cerebrovascular accident 885568194 I63.012 stable, is following up with cardiology for stent? patient unsure Chronic ob structive pulmonary disease 61103177 J42 O2 was was 97% at recheck which is good lungs cleared with cough Hypertensive disorder 38 189318 I10 BP better at recheck, 110/60 Hyperlipidemia 91734698 E78.00 will have her fu every 6 mo to check his cholestero l Impaired f asting glycemia 486894901 R73.01 will fu from concern at hospital Health Concerns Section Related Observation LastModified by Organization Detai ls LastModified Time None Recorded Concern Status LastModified by Organization Details LastModified Time None Recorded Advance Directives Directive None Recorded Payers Encounter Date Sequence Insurance Name Policy Number Policy Gonzalez Covered Member ID Gonzalez Member ID Guarantor Name 02/18/2020 2 [place] [id number] Mikie Paul [id number] Mikie Paul 02/18/2020 1 [place] Mikie Francis Litgiuliamel [id number] Mikie Litcampbell 06/30/2020 2 [place] [id number] Miike Cycampbell [id number] Mikie Cycampbell 06/30/2020 1 [place] Mikie Francis Beverly [id number] Mikie Paul 10/18/2020 2 [place] [id number] Mikie Litcampbell [id number] Mikie Cycampbell 10/18/2020 1 [place] Mikie L Beverly [id number] Mikie Paul Notes Date Note Type Note Provider Name [...] [facility] and now here has a hx of back surgery and did not do well as he still has a hard time walking Ronny Rashid DO [address] [place], [address], [facility] 02/18/2020 11:02:58 06/30/2020 text/html hospital [...] floor, unresponsive and called the ambulance the motion picture commentator evaluated him, did not think it was [...] sore throat, no wheezing SANDY ZURITA [address] [place], [address], [facility] 06/30/2020 10:29:18 10/18/2020 text/html hospital [...] for pre op clearance for stent at motion picture commentator office SANDY ZURITA [address] [place] [address], [place], [address], [facility] 10/18/2020 15:18:44
--- OUTSIDE RECORDS SUMMARY | 2024-10-07 13:19 | XMS_ITS | Encounter Summary ---
Author Name [facility] [place] Organization [facility] [place] [facility] [place] Address [address] [place] [id number] Care Team Providers Care Assembler For Puller Over Machine Name Role Phone RUBI CROWE Primary Care [...] O MEDEX BRONZ E Jun 06, 2007 [id number] [phone] NEVIN WILLIAMSON PATIENT ANTHEM BCBS OF CT MEDICARE SUPPLEMEN SALVATORE PSUED O MEDEX BRONZ E Jun 06, 2007 [id number] NEVIN WILLIAMSON PATIENT ANTHEM BCBS OF CT (BLUECARD) MEDICARE SUPPLEMEN SALVATORE PSUED O MEDEX BRONZ E Jun 06, 2007 [id number] NEVIN WILLIAMSON PATIENT [place] MED[place] SUPPLEMEN SALVATORE MEDEX BRONZ E Jun 06, 2007 [id number] NEVIN WILLIAMSON [place] MEDEX BRONZ E Jun 06, 2007 [id number] [phone] NEVIN WILLIAMSON PATIENT MEDICARE (WNR) MEDICARE (M) PART B Jun 06, 2007 PART B [id number] NEVIN WILLIAMSON PATIENT MEDICARE (WNR) MEDICARE (M) PART B Jun 06, 2007 PART B [id number] [phone] NEVIN WILLIAMSON PATIENT MEDICARE (WNR) MEDICARE (M) PART A Jan 04, 2003 PART A [id number] [phone] NEVIN WILLIAMSON PATIENT MEDICARE (WNR) MEDICARE (M) PART B Jan 04, 2003 PART B [id number] NEVIN WILLIAMSON PATIENT MEDICARE (WNR) MEDICARE (M) PART A Jan 04, 2003 PART A [id number] NEVIN WILLIAMSON PATIENT MEDICARE (WNR) MEDICARE (M) PART A Jan 04, 2003 PART A [id number] [phone] NEVIN WILLIAMSON PATIENT Selected Encounter This section includes the information on record at [place] for the Encounter. Date/Time Encounter Type Encounter Description Reason Provider Source Aug 04, 2024 09:30 AM OFFICE O/P EST LOW 20 MIN ENDOCRINOLOGY ICD-10-CM E04.2 Nontoxic multinodular goiter JESUS KNIGHT [place] Encounter Template Text not used by [place] Assessments - Encounter Diagnoses This section includes the primary and secondary diagnoses documented for the Encounter. Date/Time Primary/Secondary Diagnosis Diagnosis Name Provider Source Aug 04, 2024 09:37 AM PRIMARY Nontoxic multinodular goiter JESUS KNIGHT [place] [facility] [place] [facility] Plan of Treatment: Future Appointments (+ 6 [...] 12, 2024 11:00 AM AMBULATORY - MEDICINE [place] [facility] [place] [facility] Nov 19, 2024 01:00 PM AMBULATORY - MEDICINE [place] [facility] [place] [facility] December 11, 2024 10:00 AM AMBULATORY - [place]ICINE [place] [facility] [place] [facility] December 11, 2024 11:00 AM [facility] [place] [facility] Lab Results: +/- [...] Range Comment Jul 15, 2024 10:48 AM [facility] THYROID T4 FREE(FT4) (WROX) Specimen Type: SERUM No comment entered. Ordering Provider: JESUS KNIGHT Report Released Date/Time: Jun 12, 2024 08:46 AM Reporting Lab: [place] [facility] [place] [facility] [address] [facility] [id number] Performing Lab: [facility] [place] [facility] [address] [facility] [phone] THYROID T4 FREE(FT4) (WROX) 1.14 ng/dL 0.6-1.6 Jul 15, 2024 10:48 AM [facility] TSH Specimen Type: SERUM No comment entered. Ordering Provider: JESUS KNIHGT Report Released Date/Time: Jun 12, 2024 08:46 AM Reporting Lab: [place] [facility] [place] [facility] [address] [facility] [address] Performing Lab: [facility] [place] [facility] [address] [facility] [address] TSH 0.41 u[IU]/mL 0.35-5.00 Jul 15, 2024 10:48 AM [facility] BASIC METABOLIC PANEL (non-fasting) Specimen Type: SERUM No comment entered. Ordering Provider: JESUS KNIGHT Report Released Date/Time: Jun 12, 2024 08:46 AM Reporting Lab: [facility] [address] [facility] [address] Performing Lab: [facility] [address] [facility] [address] UREA NITROGEN 11 mg/dL 7-25 GLUCOSE 101 mg/dL H 65-100 SODIUM 141 mmol/L 135-145 POTASSIUM 4.7 mmol/L 3.5-5.0 CHLORIDE 107 mmol/L 100-110 CO2 27 meq/L 20-30 CREATININE, Serum 1.06 mg/dL 0.50-1.40 eGFR(CKD-EPI 2020) 68 mL/min >60 Jul 15, 2024 10:48 AM [facility] CBC Specimen Type: BLOOD No comment entered. Ordering Provider: JESUS KNIGHT Report Released Date/Time: Jun 12, 2024 08:46 AM Reporting Lab: [address] [address] Performing Lab: [address] [address] WBC 6.11 10*3/uL 4.50-11.00 RBC 4.31 10*6/uL [...] 97.3 63 130/74 18 95 174.6 27 [facility] Social History: [...] Date/Time Current Smoking Status Comment Yessica it Jan 08, 2024 10:00 AM VA-TOBACCO FORMER USER [place] [facility] [place] [facility] Tobacco Use [...] < 15 YRS [place] [facility] [place] [facility] May 03, 2022 01:00 PM VA-TOBACCO FORMER USER [place] [facility] [place] [facility] May 03, 2022 01:00 PM VA-TOBACCO QUIT 15 YRS OR MORE [place] [facility] [place] [facility] May 17, 2021 09:00 AM VA-TOBACCO FORMER USER [place] [facility] [place] [facility] May 17, 2021 09:00 AM VA-TOBACCO QUIT 15 YRS OR MORE [place] [facility] [place] [facility] May 28, 2020 03:00 PM VA-TOBACCO FORMER USER [facility] [place] [facility] May 28, 2020 03:00 PM VA-TOBACCO QUIT 5 TO < 15 YRS [facility] [place] [facility] Oct 04, 2018 11:04 AM VA-TOBACCO FORMER USER [place] [facility] [place] [facility] Oct 04, 2018 11:04 AM VA-TOBACCO QUIT 1 TO < 5 YRS [place] [facility] [place] [facility] Jan 24, 2018 01:52 PM CURRENT SMOKER [place] [facility] [place] [facility] Jan 24, 2018 01:52 PM QUIT TOBACCO USE IN PAST YEAR quit ciagarettes 3 months ago [place] [facility] [place] [facility] Encounter Notes: All associated encounter notes This [...] source for the followin. Carotid Artery Stenosis ([facility] [id number]) 2. Multinodular goiter 3. Cerebrovascular accident 4. Coronary atherosclerosis 5. H/O: glaucoma 6. Hyperlipidemia 7. Elderly fall 8. COPD - Chronic Obstructive Pulmonary Disease ([facility] [id number]) 9. HTN - Hypertension ([facility] [id number]) 10. 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 Outpatient Medications [...] this [facility] (local) and dispensed from another [place] or DoD facility (remote) as well as [...] Remote Allergy/ADR Data available for this patient [place] [facility] [facility] BEE VENOM [place] [facility] HYDROCHLOROTHIAZIDE Med Recon NoGlossary (Tool #1) INCLUDED IN THIS LIST: Alphabetical list of active outpatient prescriptions dispensed from this VA (local) and dispensed from another [place] or DoD facility (remote) as well as inpatient orders (local pending and active), local clinic medications, locally documented non-VA medications, and local prescriptions that have or been discontinued in the past 90 days. Non-VA Meds Last Documented On: Jun 19, 2022 NOTE The display of VA prescriptions dispensed from another [place] or DoD facility (remote) is limited to active outpatient prescription entries matched to National Drug File at the originating site and may not include some items such as investigational drugs, compounds, etc. NOT INCLUDED IN THIS LIST: Medications self-entered by the patient into personal health records (i.e. [employer]) are NOT included in this list. Non-VA medications documented outside this [place], remote inpatient orders (regardless of status) and remote clinic medications are NOT included in this list. The patient and provider must always discuss medications the patient is taking, regardless of where the medication was dispensed or obtained. OUTPT ACETAMINOPHEN 500MG TAB (Status = Active) TAKE TWO TABLETS BY MOUTH TWICE DAILY FOR PAIN Rx# [id number] Last Released: 06/25/24 Qty/Days Supply: 400/ Rx Expiration Date: 06/24/25 Refills Remainin Indication: FOR PAIN OUTPT ASPIRIN 81MG EC TAB (Status = Active) TAKE ONE TABLET BY MOUTH ONCE DAILY FOR PAIN TO PREVENT STROKE/HEART ATTACK Rx# [id number] Last Released: 06/25/24 Qty/Days Supply: 120/ Rx Expiration Date: 06/24/25 Refills Remainin Indication: FOR PAIN OUTPT ATORVASTATIN CALCIUM 80MG TAB (Status = ) TAKE ONE TABLET BY MOUTH ONCE DAILY FOR CHOLESTEROL Rx# [id number] Last Released: 04/04/24 Qty/Days Supply: 90 Rx Expiration Date: 05/30/24 Refills Remainin OUTPT ATORVASTATIN CALCIUM 80MG TAB (Status = Active) TAKE ONE-HALF TABLET BY MOUTH ONCE DAILY FOR CHOLESTEROL Rx# [id number] Last Released: 06/25/24 Qty/Days Supply: 45/ Rx Expiration Date: 06/24/25 Refills Remainin Indication: FOR HIGH CHOLESTEROL OUTPT EPINEPHRINE (EQV-EPI-PEN) 0.3MG/0.3ML (Status = Active) INJECT DIRECTED INTRAMUSCULARLY ONCE DAILY NEEDED FOR LIFE THREATENING ALLERGIC REACTION Rx# [id number] Last Released: 02/11/24 Qty/Days Supply: Rx Expiration Date: 02/11/25 Refills Remainin Indication: FOR LIFE THREATENING ALLERGIC REACTION OUTPT FLUTICASONE PROP 50MCG 120D NASAL INHL (Status = ) INSTILL 1 SPRAY INTO EACH NOSTRIL AT BEDTIME FOR NASAL IRRITATION/INFLAMMATION Rx# [id number] Last Released: 07/12/23 Qty/Days Supply: 09/04 Rx Expiration Date: 07/04/24 Refills Remainin Indication: FOR NASAL IRRITATION/INFLAMMATION OUTPT ISOSORBIDE MONONITRATE 30MG SA TAB (Status = Discontinued) TAKE ONE TABLET BY MOUTH ONCE DAILY TO PREVENT ANGINA Rx# [id number] Last Released: 05/29/24 Qty/Days Supply: Rx Expiration Date: 05/30/24 Refills Remainin OUTPT ISOSORBIDE MONONITRATE 30MG SA TAB (Status = Active/Suspended) TAKE ONE TABLET BY MOUTH ONCE DAILY TO PREVENT ANGINA Rx# [id number] Last Released: Qty/Days Supply: Rx Expiration Date: 07/17/25 Refills Remainin OUTPT KETOROLAC TROMETHAMINE 0.5% OPH SOLN (Status = Active) INSTILL 1 DROP INTO THE AFFECTED EYE(S) THREE TIMES A DAY FOLLOWING SURGERY FOR 3 WEEKS. SEPARATE BOTTLE FOR EACH EYE. Rx# [id number] Last Released: 02/16/24 Qty/Days Supply: 05/26 Rx Expiration Date: 02/12/25 Refills Remainin OUTPT LATANOPROST 0.005% OPH SOLN (Status = Active) INSTILL 1 DROP INTO EACH EYE AT BEDTIME TO REDUCE PRESSURE IN THE EYE Rx# [id number] Last Released: 07/15/24 Qty/Days Supply: Rx Expiration Date: 11/07/24 Refills Remainin OUTPT LEVETIRACETAM 250MG TAB (Status = Discontinued) TAKE ONE TABLET BY MOUTH AT BEDTIME Rx# [id number] Last Released: 05/29/24 Qty/Days Supply: Rx Expiration Date: 07/04/24 Refills Remainin OUTPT LEVETIRACETAM 250MG TAB (Status = Active/Suspended) TAKE ONE TABLET BY MOUTH AT BEDTIME Rx# [id number] Last Released: QtDays Supply: Rx Expiration Date: 07/17/25 Refills Remainin OUTPT LISINOPRIL 20MG TAB (Status = Active) TAKE ONE TABLET BY MOUTH ONCE DAILY FOR HIGH BLOOD PRESSURE TO CONTROL BLOOD PRESSURE Rx# [id number] Last Released: 05/13/24 Qty/Days Supply: Rx Expiration Date: 02/11/25 Refills Remainin Indication: FOR HIGH BLOOD PRESSURE OUTPT METOPROLOL SUCCINATE 25MG SA TAB (Status = Discontinued) TAKE ONE TABLET BY MOUTH ONCE DAILY FOR BLOOD PRESSURE/HEART Rx# [id number] Last Released: 04/04/24 Qty/Days Supply: Rx Expiration Date: 05/30/24 Refills Remainin OUTPT METOPROLOL SUCCINATE 25MG SA TAB (Status = Active) TAKE ONE TABLET BY MOUTH ONCE DAILY FOR BLOOD PRESSURE/HEART Rx# [id number] Last Released: 07/17/24 Qty/Days Supply: Rx Expiration Date: 07/17/25 Refills Remainin OUTPT PREDNISOLONE ACETATE 1% OPH SUSP (Status = Active) INSTILL 1 DROP INTO THE AFFECTED EYE(S) THREE TIMES A DAY FOLLOWING SURGERY FOR 3 WEEKS. SEPARATE BOTTLE FOR EACH EYE. Rx# [id number] Last Released: 02/16/24 Qty/Days Supply: 05/26 Rx Expiration Date: 02/12/25 Refills Remainin OUTPT TAMSULOSIN HCL 0.4MG CAP (Status = Discontinued) TAKE ONE CAPSULE BY MOUTH AT BEDTIME FOR ENLARGED PROSTATE Rx# [id number] Last Released: 04/21/24 Qty/Days Supply: Rx Expiration Date: 07/04/24 Refills Remainin Indication: FOR ENLARGED PROSTATE OUTPT TAMSULOSIN HCL 0.4MG CAP (Status = Active) TAKE ONE CAPSULE BY MOUTH AT BEDTIME FOR ENLARGED PROSTATE Rx# [id number] Last Released: 07/17/24 Qty/Days Supply: Rx Expiration Date: 07/17/25 Refills Remainin Indication: FOR ENLARGED PROSTATE SUPPLIES /rowena KNIGHT MD STAFF PHYSICIAN Signed: 08/04/2024 09:38 08/04/2024 ADDENDUM STATUS: COMPLETED Asked to call Fall 2025 to ask me to schedule u/s. /catalina/ JESUS KNIGHT MD STAFF PHYSICIAN Signed: 08/04/2024 09:40 JESUS KNIGHT [facility]
--- OUTSIDE RECORDS SUMMARY | 2024-10-07 13:20 | XMS_ITS | Clinical Summary ---
Author Organization [facility] Address [address] [place] [address] [address] [place] [address] Phone Care Team Providers Care Asic Design Engineer Name Role Phone Unavailable Primary Care Provider Unavailabl e Social History Tobacco Use Types Packs/Day Years Used Date Smoking Tobacco: Never Assessed Sex and Gender Information Value Date Recorded Sex Assigned at Not on file Legal Sex Male 8:14 AM EDT Gender Identity Not on file Sexual Orientation Not on file Plan of Treatment Health Maintenance Due Date Last Done Comments Pneumococcal Vaccine: 65+ Ye ars (2 of 2 - PPSV23 or PCV20) 08/29/2019 07/04/2019 Influenza Vaccine (#1) 2024 04/13/2020 Hepatitis B Vaccine Aged Out No longe r eligible based on patient's age to complete this topic Insurance [employer] 1,2,3 (VACCN) [facility] [employer] 1,2,3 (VACCN)
--- OUTSIDE RECORDS SUMMARY | 2024-10-07 13:20 | XMS_ITS | Continuity of Care Document ---
Author Name [facility] Organization [facility] Care Team Providers Care Chemical Pumper Name Role Phone [facility] Unavailable Unavailable Problems Combined list of problems from Department of Defense and Veterans Affairs facilities. It does not include entries that were removed or entered in error. Problem Status Onset Date Problem Type Date of Resolution Comments Source Asbestos-induced pleural plaque Active Condition [facility] Carotid Artery Stenosis (SCT 45817589) Active Condition Jun 23, 2024 Entered By: RUBI CROWE Comment: s/p CEA right [facility] Cerebrovascular accident Active Condition Jun 23, 2024 Entered By: RUBI CROWE Comment: rigth sided weakness, received tPA with full resolution 2020- [facility] COPD - Chronic Obstructive Pulmonary Disease (SCT 11179432) Active Condition Oct 04, 2018 Entered By: ODILIA MASTERSON Comment: d/ c smoking 8 months [facility] Coronary atherosclerosis Active Condition May 03, 2022 Entered By: MARGARITA BARBER Comment: following with [facility] cardiology, 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, near syncope [facility] Elderly fall Active Condition [facility] H/O: glaucoma Active Condition [facility] HTN - Hypertension (SCT 52100663) Active Condition [facility] Hyperlipidemia Active Condition [facility] Multinodular goiter Active Condition [facility] Spinal Stenosis of Lumbar Region (SCT [id number]) Active Condition [facility] Diagnosis: ICD-10-CM 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 [facility] Diagnosis: ICD-10-CM 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 [facility] Diagnosis: ICD-10-CM I65.29 Occlusion and stenosis of unspecified carotid artery Active Diagnosis [facility] Diagnosis: ICD-10-CM Z23 Encounter for immunization Active [facility] Diagnosis: ICD-10-CM Z46.0 Encounter for fit/adjst of spectacles and contact lenses Active Diagnosis [facility] Diagnosis: ICD-10-CM H26.8 Other specified cataract Active [facility] [place] [facility] Diagnosis: ICD-10-CM L72.0 Epidermal cyst Active Diagnosis [facility] Diagnosis: ICD-10-CM R22.1 Localized swelling, mass and lump, neck Active [facility] Diagnosis: ICD-10-CM Z98.890 Other specified postprocedural states Active Diagnosis [facility] Diagnosis: ICD-10-CM M54.2 Cervicalgia Active Diagnosis [facility] [place] [facility] Diagnosis: ICD-10-CM Z04.9 Encounter for examination and observation for unsp reason Active Diagnosis [facility] Diagnosis: ICD-10-CM L57.0 Actinic keratosis Active Diagnosis [facility] [place] [facility] Diagnosis: ICD-10-CM H40.1131 Primary open-angle glaucoma, bilateral, mild stage Active Diagnosis [facility] Diagnosis: ICD-10-CM Z71.9 Counseling, unspecified Active Diagnosis [facility] [place] [facility] Medications Combined list of outpatient medications from [...] TWICE DAILY FOR PAIN ORAL ACTIVE 06/24/2025 [id number] FURCOLO,T RAVINDRA 2023 400 [facility] ASPIRIN 81MG TAB,EC TAKE ONE TABLET BY MOUTH ONCE DAILY FOR PAIN TO PREVENT STROKE/H EART ATTACK ORAL ACTIVE 06/24/2025 [id number] 4 FURCOLO,T RAVINDRA 2023 120 [facility] ATORVASTATI N CA 80MG TAB TAKE ONE-HALF TABLET BY MOUTH ONCE DAILY FOR CHOLESTE ROL ORAL ACTIVE 06/24/2025 [id number] FURCOLO,T RAVINDRA 2023 45 [facility] ATORVASTATI N CA 80MG TAB TAKE ONE TABLET BY MOUTH ONCE DAILY FOR CHOLESTE ROL ORAL 05/30/2024 [id number] ROSA PATHAK AMJANE JAWED 2022 90 [facility] BRIMONIDINE TARTRATE 0.15% SOLN,OPH INSTILL 1 DROP INTO THE RIGHT EYE THREE TIMES A DAY FOR GLAUCOMA OPHTHA LMIC 03/30/2024 [id number] ROGER BEAN 2023 10 [facility] DICLOFENAC NA 1% GEL,TOP APPLY 2 GRAMS TOPICALL Y FOUR TIMES A DAY FOR OSTEOART HRITIS - USE DOSING CARD PROVIDED IN BOX TOPICA L 01/18/2024 [id number] CIRA GARIBAY 2023 100 [facility] EPINEPHRINE (EQV-EPI-PE N) 0.3MG/0.3ML INJECTOR INJECT DIRECTED INTRAMUS CULARLY ONCE DAILY NEEDED FOR LIFE THREATEN ING ALLERGIC REACTION INTRAM USCULA R ACTIVE 02/11/2025 [id number] FURCOLO,T RAVINDRA 2023 2 [facility] ISOSORBIDE MONONITRATE 30MG TAB,SA TAKE ONE TABLET BY MOUTH ONCE DAILY TO PREVENT ANGINA ORAL ACTIVE 07/17/2025 [id number] FURCOLO,T RAVINDRA 2024 90 [facility] ISOSORBIDE MONONITRATE 30MG TAB,SA TAKE ONE TABLET BY MOUTH ONCE DAILY TO PREVENT ANGINA ORAL DISCONT INUED 05/30/2024 [id number] [facility] AM[facility] JAWED 2023 90 [facility] KETOROLAC TROMETHAMIN E 0.5% SOLN,OPH INSTILL 1 DROP INTO THE AFFECTED EYE(S) THREE TIMES A DAY FOLLOWIN G SURGERY FOR 3 WEEKS. SEPARATE BOTTLE FOR EACH EYE. OPHTHA LMIC ACTIVE 02/12/2025 [id number] ROGER BEAN 2023 10 [facility] LATANOPROST 0.005% SOLN,OPH INSTILL 1 DROP INTO EACH EYE AT BEDTIME TO REDUCE PRESSURE IN THE EYE OPHTHA LMIC ACTIVE 11/07/2024 [id number] [facility] JAWED 2023 7.5 [facility] LEVETIRACET AM 250MG TAB TAKE ONE TABLET BY MOUTH AT BEDTIME ORAL ACTIVE 07/17/2025 [id number] FURDES,T RAVINDRA 2024 90 [facility] LEVETIRACET AM 250MG TAB TAKE ONE TABLET BY MOUTH AT BEDTIME ORAL DISCONT INUED 07/04/2024 [id number] [facility] AMMED JAWED 2023 90 [facility] LISINOPRIL 20MG TAB TAKE ONE TABLET BY MOUTH ONCE DAILY FOR HIGH BLOOD PRESSURE TO CONTROL BLOOD PRESSURE ORAL ACTIVE 02/11/2025 [id number] FURROLYLO,T RAVINDRA 2023 90 [facility] LISINOPRIL 5MG TAB TAKE ONE TABLET BY MOUTH ONCE DAILY FOR HIGH BLOOD PRESSURE TO CONTROL BLOOD PRESSURE ORAL DISCONT INUED (EDIT) 07/04/2024 [id number] AHMED,MOH AMMED JAWED 2022 90 [facility] [place] METOPROLOL SUCCINATE 25MG TAB,SA TAKE ONE TABLET BY MOUTH ONCE DAILY FOR BLOOD PRESSURE /HEART ORAL ACTIVE 07/17/2025 [id number] FURCOLO,T RAVINDRA 2023 90 [facility] [place] METOPROLOL SUCCINATE 25MG TAB,SA TAKE ONE TABLET BY MOUTH ONCE DAILY FOR BLOOD PRESSURE /HEART ORAL DISCONT INUED 05/30/2024 [id number] [facility] JAWED 2022 90 [place] [facility] [place] [facility] [facility] PREDNISOLON E ACETATE 1% SUSP,OPH INSTILL 1 DROP INTO THE AFFECTED EYE(S) THREE TIMES A DAY FOLLOWIN G SURGERY FOR 3 WEEKS. SEPARATE BOTTLE FOR EACH EYE. OPHTHA LMIC ACTIVE 02/12/2025 [id number] ROGER BEAN 2023 10 [facility] [place] [facility] TAMSULOSIN HCL 0.4MG CAP TAKE ONE CAPSULE BY MOUTH AT BEDTIME FOR ENLARGED PROSTATE ORAL ACTIVE 07/17/2025 [id number] 4 FURCOLO,T RAVINDRA 2023 90 [facility] TAMSULOSIN HCL 0.4MG CAP TAKE ONE CAPSULE BY MOUTH AT BEDTIME FOR ENLARGED PROSTATE ORAL DISCONT INUED 07/04/2024 [id number] [facility] JAWED 2022 90 [facility] [place] [facility] TIMOLOL MALEATE 0.25% SOLN,OPH INSTILL 1 DROP INTO THE LEFT EYE TWICE DAILY OPHTHA LMIC DISCONT INUED 04/04/2024 [id number] FARIDA BERMEO 2023 5 [place] [facility] [place] [facility] [facility] TIMOLOL MALEATE 0.25% SOLN,OPH INSTILL 1 DROP INTO THE LEFT EYE TWICE DAILY OPHTHA LMIC 04/12/2024 [id number] 4 FARIDA BERMEO 2023 5 [facility] Allergies, Adverse Reactions, Alerts Combined list of allergies from Department of Defense and Veterans Affairs facilities. It does not include entries that were removed or entered in error. Substance Category Reaction Severity Reaction type Status Date Reported Comments Source AUGMENTIN Propensity to adverse reactions to drug (finding) active 8 [facility] BEE VENOM Propensity to adverse reaction (finding) active 8 [facility] HYDROCHLOROT HIAZIDE Propensity to adverse reactions to drug (finding) Hyponatremi a MODERATE active 3 [facility] Immunizations Combined list of available immunizations from the Department of Defense and Veterans Affairs facilities. Immunization Series Date Given Administered By Site Reaction Lot Number CVX Code Drug Plant Hr Manager Status Comments Source RSV, BIVALENT, PROTEIN SUBUNIT RSVPREF, DILUENT RECONSTITUTED , 0.5 ML, PF 1 2023 DEANGELO MCCARTNEY E LEFT DELTO ID [id number] 305 complet ed diluent lot #[id number] [facility] COVID-19 (MODERNA), MRNA, LNP-S, PF, 50 MCG/0.5 ML (AGES 12+ YEARS) 2023 LANI WHITFIELD HY E LEFT DELTO ID [id number] 312 complet ed [facility] INFLUENZA, HIGH-DOSE, TRIVALENT, PF 2023 LANI WHITFIELD HY E RIGHT DELTO ID [id number] 135 [facility] COVID-19 (MODERNA), MRNA, LNP-S, PF, 50 MCG/0.5 ML (AGES 12+ YEARS) 1 2022 YU MORTENSEN RIGHT DELTO ID [id number] 312 complet ed [facility] INFLUENZA, HIGH-DOSE, QUADRIVALENT 2022 YU MORTENSEN LEFT DELTO ID [id number] 197 complet ed [facility] COVID-19 (MODERNA), MRNA, LNP-S, BIVALENT BOOSTER, PF, 50 MCG/0.5 ML OR 25MCG/0.25 ML DOSE 1 2021 YU MORTENSEN LEFT DELTO ID [id number] 229 complet ed [facility] INFLUENZA VACCINE, QUADRIVALENT, ADJUVANTED 2021 205 complet ed [facility] COVID-19 (MODERNA), MRNA, LNP-S, PF, 100 MCG/0.5ML DOSE OR 50 MCG/0.25ML DOSE 3 2021 207 complet ed MOD; [id number] ; 2 [facility] COVID-19 (MODERNA), MRNA, LNP-S, PF, 100 MCG/0.5 ML DOSE 3 2020 207 complet ed MOD; [id number]; 1 [facility] INFLUENZA VACCINE, QUADRIVALENT, ADJUVANTED 2020 205 complet ed [facility] PNEUMOCOCCAL POLYSACCHARID E PPV23 2020 33 complet ed [facility] COVID-19 (MODERNA), MRNA, LNP-S, PF, 100 MCG/0.5 ML DOSE 2 2020 207 complet ed MOD; [id number]; 1 [facility] COVID-19 (MODERNA), MRNA, LNP-S, PF, 100 MCG/0.5 ML DOSE 1 2020 207 complet ed MOD; [id number]; 1 [facility] INFLUENZA, SEASONAL, INJECTABLE, PRESERVATIVE FREE 2019 140 complet ed Partner: [facility]. Administe red by: BERLIN DE ANDA (JVI=[phone]). Partner 49 Lot#: [id number] Mfr: SEQIRUS; Dosage: 0.5 [facility] [...] INJECTABLE [address] watters [place] [facility] TDAP 2014 115 complet ed [place] [facility] Results Combined [...] Jun 12, 2024 08:46 AM Reporting Lab: [facility] [place] [facility] [address] [facility] [address] Performing Lab: [facility] [place] [facility] [address] [facility] [address] [facility] [place] [facility] TSH THYROTROPIN [UNITS/VOLU ME] IN SERUM OR PLASMA 0.41 u[IU]/ mL 0.35 - 5.00 07/15 Specimen Type: SERUM No comment entered. Ordering Provider: INGE KNIGHT Report Released Date/Time: Jun 12, 2024 08:46 AM Reporting Lab: [facility] [place] [facility] [address] [facility] [address] Performing Lab: [facility] [address] [facility] [address] [facility] [place] [facility] BASIC METABOLIC PANEL (non-fast ing) UREA NITROGEN [MASS/VOLUM E] IN SERUM OR PLASMA 11 mg/dL 7 - 25 07/15 Specimen Type: SERUM No comment entered. Ordering Provider: INGE KNIGHT Report Released Date/Time: Jun 12, 2024 08:46 AM Reporting Lab: [facility] [address] [facility] [address] Performing Lab: [facility] TRN [facility] [address] [facility] [address] [facility] BASIC METABOLIC PANEL (non-fast ing) GLUCOSE [MASS/VOLUM E] IN SERUM OR PLASMA 101 mg/dL 65 - 100 07/15 H Specimen Type: SERUM No comment entered. Ordering Provider: INGE KNIGHT Report Released Date/Time: Jun 12, 2024 08:46 AM Reporting Lab: [facility] [address] [facility] [address] Performing Lab: [facility] [address] [address] [facility] BASIC METABOLIC PANEL (non-fast ing) SODIUM [MOLES/VOLU ME] IN SERUM OR PLASMA 141 mmol/L 135 - 145 07/15 Specimen Type: SERUM No comment entered. Ordering Provider: INGE KNIGHT Report Released Date/Time: Jun 12, 2024 08:46 AM Reporting Lab: [address] [address] Performing Lab: [facility] [address] [address] [facility] BASIC METABOLIC PANEL (non-fast ing) POTASSIUM [MOLES/VOLU ME] IN SERUM OR PLASMA 4.7 mmol/L 3.5 - 5.0 07/15 Specimen Type: SERUM No comment entered. Ordering Provider: INGE KNIGHT Report Released Date/Time: Jun 12, 2024 08:46 AM Reporting Lab: [facility] COUNTYTRN [address] [address] Performing Lab: [facility]ITALR[facility]OM[facility]ERN [address] [address] [facility] BASIC METABOLIC PANEL (non-fast ing) CHLORIDE [MOLES/VOLU ME] IN SERUM OR PLASMA 107 mmol/L 100 - 110 07/15 Specimen Type: SERUM No comment entered. Ordering Provider: INGE KNIGHT Report Released Date/Time: Jun 12, 2024 08:46 AM Reporting Lab: [facility] W[facility]ITAL[facility]ETS [address] [address] Performing Lab: [facility] W[facility]N [facility]USE[address] [address] [facility] BASIC METABOLIC PANEL (non-fast ing) CARBON DIOXIDE, TOTAL [MOLES/VOLU ME] IN SERUM OR PLASMA 27 meq/L 20 - 30 07/15 Specimen Type: SERUM No comment entered. Ordering Provider: INGE KNIGHT Report Released Date/Time: Jun 12, 2024 08:46 AM Reporting Lab: [facility] WSTRN [address] [address] Performing Lab: [facility]ITALRENCOM[facility] COUNTYTRN [address] [address] [facility] BASIC METABOLIC PANEL (non-fast ing) CREATININE [MASS/VOLUM E] IN SERUM OR PLASMA 1.06 mg/dL 0.50 - 1.40 07/15 Specimen Type: SERUM No comment entered. Ordering Provider: INGE KNIGHT Report Released Date/Time: Jun 12, 2024 08:46 AM Reporting Lab: [facility]ITAL[facility] [address] Performing Lab: [facility] WSTRN [address] [address] [facility] TRN [facility] BASIC METABOLIC PANEL (non-fast ing) GLOMERULAR FILTRATION RATE/1.73 SQ M.PREDICTED [VOLUME RATE/AREA] IN SERUM, PLASMA OR BLOOD BY CREATININE- BASED FORMULA (CKD-EPI 2020) 68 mL/min 60 07/15 Specimen Type: SERUM No comment entered. Ordering Provider: INGE KNIGHT Report Released Date/Time: Jun 12, 2024 08:46 AM Reporting Lab: [facility] [address] Performing Lab: [place] [facility] [place] [facility] [address] [facility] [address] [place] [facility] [facility] [facility] CBC LEUKOCYTES [#/VOLUME] IN BLOOD BY AUTOMATED COUNT 6.11 10*3/u L 4.50 - 11.00 07/15 Specimen Type: BLOOD No comment entered. Ordering Provider: INGE KNIGHT Report Released Date/Time: Jun 12, 2024 08:46 AM Reporting Lab: [facility] [place] [facility] [address] [facility] [address] Performing Lab: [facility] [place] [facility] [address] [facility] [address] [place] [facility] [facility] CBC ERYTHROCYTE S [#/VOLUME] IN BLOOD BY AUTOMATED COUNT 4.31 10*6/u L 4.23 - 5.66 07/15 Specimen Type: BLOOD No comment entered. Ordering Provider: INGE KNIGHT Report Released Date/Time: Jun 12, 2024 08:46 AM Reporting Lab: [facility] [place] [facility] [address] [facility] [address] Performing Lab: [place] [facility] [place] [address] [address] [place] [facility] [facility] CBC HEMOGLOBIN [MASS/VOLUM E] IN BLOOD 13.6 g/dL 12.8 - 17 07/15 Specimen Type: BLOOD No comment entered. Ordering Provider: INGE KNIGHT Report Released Date/Time: Jun 12, 2024 08:46 AM Reporting Lab: [facility] [place] [facility] [address] [facility] [address] Performing Lab: [facility] [place] [address] [address] [place] [facility] [facility] CBC HEMATOCRIT [VOLUME FRACTION] OF BLOOD BY AUTOMATED COUNT 40.2 39.2 - 50.4 07/15 Specimen Type: BLOOD No comment entered. Ordering Provider: INGE KNIGHT Report Released Date/Time: Jun 12, 2024 08:46 AM Reporting Lab: [facility] [place] [address] [address] Performing Lab: [facility] [place] [facility] [address] [facility] [address] [place] [facility] [place] [facility] CBC MCV [ENTITIC VOLUME] BY AUTOMATED COUNT 93.3 fL 82 - 99 07/15 Specimen Type: BLOOD No comment entered. Ordering Provider: INGE KNIGHT Report Released Date/Time: Jun 12, 2024 08:46 AM Reporting Lab: [facility] [place] [facility] [address] [facility] [address] Performing Lab: [place] [facility] [place] [facility] [address] [facility] [address] [place] [facility] [facility] CBC MCHC [MASS/VOLUM E] BY AUTOMATED COUNT 33.8 g/dL 30.8 - 35.1 07/15 Specimen Type: BLOOD No comment entered. Ordering Provider: INGE KNIGHT Report Released Date/Time: Jun 12, 2024 08:46 AM Reporting Lab: [place] [facility] [place] [facility] [address] [facility] [address] Performing Lab: [place] [facility] [place] [facility] [address] [facility] [address] [place] [facility] CBC PLATELETS [#/VOLUME] IN BLOOD BY AUTOMATED COUNT 247 10*3/u L 140 - 360 07/15 Specimen Type: BLOOD No comment entered. Ordering Provider: INGE KNIGHT Report Released Date/Time: Jun 12, 2024 08:46 AM Reporting Lab: [facility] [place] [facility] [address] [facility] [address] Performing Lab: [place] [facility] [place] [facility] [address] [facility] [address] [place] [facility] [facility] CBC ERYTHROCYTE DISTRIBUTIO N WIDTH [RATIO] BY AUTOMATED COUNT 13.4 12.0 - 16.0 07/15 Specimen Type: BLOOD No comment entered. Ordering Provider: INGE KNIGHT Report Released Date/Time: Jun 12, 2024 08:46 AM Reporting Lab: [facility] [place] [facility] [address] [facility] [address] Performing Lab: [place] [facility] [place] [facility] [address] [facility] [address] [place] [facility] CBC MCH [ENTITIC MASS] BY AUTOMATED COUNT 31.6 pg 26.2 - 32.6 07/15 Specimen Type: BLOOD No comment entered. Ordering Provider: INGE KNIGHT Report Released Date/Time: Jun 12, 2024 08:46 AM Reporting Lab: [facility] [place] [facility] [address] [facility] [address] Performing Lab: [place] [facility] [facility] [address] [facility] [address] [facility] [place] [facility] LIPID PANEL, NON FASTING CHOLESTEROL [MASS/VOLUM E] IN SERUM OR PLASMA 91 mg/dL 01/29 Specimen Type: SERUM No comment entered. Ordering Provider: ANTONY CROWE Report Released Date/Time: December 26, 2023 08:29 AM Reporting Lab: [facility] [place] [facility] [address] [facility] [address] Performing Lab: [place] [facility] [facility] [address] [facility] [address] [facility] [place] [facility] LIPID PANEL, NON FASTING TRIGLYCERID E [MASS/VOLUM E] IN SERUM OR PLASMA 65 mg/dL 0 - 150 01/29 Specimen Type: SERUM No comment entered. Ordering Provider: ANTONY CROWE Report Released Date/Time: December 26, 2023 08:29 AM Reporting Lab: [facility] [place] [facility] [address] [facility] [address] Performing Lab: [place] [facility] [facility] [address] [facility] [address] [facility] [place] [facility] LIPID PANEL, NON FASTING CHOLESTEROL IN LDL [MASS/VOLUM E] IN SERUM OR PLASMA BY CALCULATION 49 mg/dL 0 - 129 01/29 Specimen Type: SERUM No comment entered. Ordering Provider: ANTONY CROWE Report Released Date/Time: December 26, 2023 08:29 AM Reporting Lab: [facility] [place] [facility] [address] [facility] [address] Performing Lab: [facility]ITALRTHOM[facility]ERN [facility]USE[facility] [address] [facility] [address] [facility] LIPID PANEL, NON FASTING CHOLESTEROL .TOTAL/CHOL ESTEROL IN HDL [MASS RATIO] IN SERUM OR PLASMA 3.1 01/29 Specimen Type: SERUM No comment entered. Ordering Provider: ANTONY CROWE Report Released Date/Time: December 26, 2023 08:29 AM Reporting Lab: [facility]ITALRTHOM[facility]ERN [facility]ITALUSEM[facility] [address] [facility] [address] Performing Lab: [facility]ITALRTHOM[facility]ENTERN [facility] [address] [facility] [address] [facility] LIPID PANEL, NON FASTING CHOLESTEROL IN HDL [MASS/VOLUM E] IN SERUM OR PLASMA 29 mg/dL 40 - 60 01/29 L Specimen Type: SERUM No comment entered. Ordering Provider: ANTONY CROWE Report Released Date/Time: December 26, 2023 08:29 AM Reporting Lab: [facility]ITALRTHOM[facility]ENTERN [facility]ITALUSEM[facility] [address] [facility] [address] Performing Lab: [facility]ITALRTHOM[facility]ENTERN [facility]ITALUSEM[facility] [address] [facility] [address] [facility] BASIC METABOLIC PANEL (non-fast ing) UREA NITROGEN [MASS/VOLUM E] IN SERUM OR PLASMA 9 mg/dL 7 - 25 01/29 Specimen Type: SERUM No comment entered. Ordering Provider: ANTONY CROWE Report Released Date/Time: December 26, 2023 08:29 AM Reporting Lab: [facility]PITALRENCOMPASS [facility] SHELBY COUNTYTRN [facility]ITALUSEM[facility] [address] [facility] [address] Performing Lab: [facility]ITALRTHOMASV[facility]AL [facility]ITALUSE[address] [address] [facility] BASIC METABOLIC PANEL (non-fast ing) GLUCOSE [MASS/VOLUM E] IN SERUM OR PLASMA 109 mg/dL 65 - 100 01/29 H Specimen Type: SERUM No comment entered. Ordering Provider: ANTONY CROWE Report Released Date/Time: December 26, 2023 08:29 AM Reporting Lab: [facility] [place] [facility] [address] [facility] [address] Performing Lab: [place] [facility] [facility] [address] [facility] [address] [facility] [place] [facility] BASIC METABOLIC PANEL (non-fast ing) SODIUM [MOLES/VOLU ME] IN SERUM OR PLASMA 136 mmol/L 135 - 145 01/29 Specimen Type: SERUM No comment entered. Ordering Provider: ANTONY CROWE Report Released Date/Time: December 26, 2023 08:29 AM Reporting Lab: [facility] [place] [facility] [address] [facility] [address] Performing Lab: [facility]ITALRL W[facility]N [facility]USE[facility] [address] [facility] [address] [facility]ITALRENCOM[facility] COUNTYTRN [facility]ITALUSE [facility] BASIC METABOLIC PANEL (non-fast ing) POTASSIUM [MOLES/VOLU ME] IN SERUM OR PLASMA 4.1 mmol/L 3.5 - 5.0 01/29 Specimen Type: SERUM No comment entered. Ordering Provider: ANTONY CROWE Report Released Date/Time: December 26, 2023 08:29 AM Reporting Lab: [facility]ITALRL TRN [facility]ITALUSETS [facility] [address] [facility] [address] Performing Lab: [place] [facility] [facility]ITALUSETS [facility] [address] [facility] [address] [facility]RL TRN [facility]ITALUSE [facility] BASIC METABOLIC PANEL (non-fast ing) CHLORIDE [MOLES/VOLU ME] IN SERUM OR PLASMA 106 mmol/L 100 - 110 01/29 Specimen Type: SERUM No comment entered. Ordering Provider: ANTONY CROWE Report Released Date/Time: December 26, 2023 08:29 AM Reporting Lab: [facility] [place] [place] [facility] [address] [facility] [address] Performing Lab: [place] [facility] [facility] [address] [facility] [address] [facility]N [place] [facility] BASIC METABOLIC PANEL (non-fast ing) CARBON DIOXIDE, TOTAL [MOLES/VOLU ME] IN SERUM OR PLASMA 24 meq/L 20 - 30 06/26 /2024 Specimen Type: SERUM No comment entered. Ordering Provider: ANTONY CROWE Report Released Date/Time: December 26, 2023 08:29 AM Reporting Lab: [facility]OSPITALRENCOM[facility] COUNTYTRN [facility]ITALUSE[address] [address] Performing Lab: [facility]ITALRENCOM[facility] SHE[facility] COUNTYTRN [address] [address] [facility]PITALRTHOMASVILLE [facility]ENTERN [facility] BASIC METABOLIC PANEL (non-fast ing) CREATININE [MASS/VOLUM E] IN SERUM OR PLASMA 1.01 mg/dL 0.50 - 1.40 01/29 Specimen Type: SERUM No comment entered. Ordering Provider: ANTONY CROWE Report Released Date/Time: December 26, 2023 08:29 AM Reporting Lab: [facility]ITALRL TRN [address] [address] Performing Lab: [facility]PITALRENCOM[facility] COUNTYTRN [address] [address] [facility] BASIC METABOLIC PANEL (non-fast ing) GLOMERULAR FILTRATION RATE/1.73 SQ M.PREDICTED [VOLUME RATE/AREA] IN SERUM, PLASMA OR BLOOD BY CREATININE- BASED FORMULA (CKD-EPI 2020) 72 mL/min 60 01/29 Specimen Type: SERUM No comment entered. Ordering Provider: ANTONY CROWE Report Released Date/Time: December 26, 2023 08:29 AM Reporting Lab: [facility]ITALRL TRN [facility]ITALUSE[address] [address] Performing Lab: [facility]ITALRL TRN [facility]ITALUSE[address] [address] [facility]PITALRTHOMASVILLE [facility] CENTERN [facility] CREATININ E (eGFR 2020) CREATININE [MASS/VOLUM E] IN SERUM OR PLASMA 0.99 mg/dL 0.50 - 1.40 01/29 Specimen Type: SERUM No comment entered. Ordering Provider: Tricia ALFARO Report Released Date/Time: Jan 28, 2024 02:54 PM Reporting Lab: [facility]PITALRENCOM[facility] SHEL[facility] COUNTYTRN [address] [address] Performing Lab: [facility]ITALRL [place] [facility] [address] [facility] [address] [facility]ITALRL [facility] [place] [facility] CREATININ E (eGFR 2020) GLOMERULAR FILTRATION RATE/1.73 SQ M.PREDICTED [VOLUME RATE/AREA] IN SERUM, PLASMA OR BLOOD BY CREATININE- BASED FORMULA (CKD-EPI 2020) 74 mL/min 60 01/29 Specimen Type: SERUM No comment entered. Ordering Provider: Tricia ALFARO Report Released Date/Time: Jan 28, 2024 02:54 PM Reporting Lab: [facility]ITAL[facility] [place] [facility] [address] [facility] [address] Performing Lab: [facility]ITALRL WSTRN [facility]ITALUSETS [facility] [address] [facility] [address] [facility]ITALRTHOMASVIL[facility]ENTERN [facility]ITALUSE [facility] LIVER FUNCTION PROTEIN [MASS/VOLUM E] IN SERUM OR PLASMA 6.9 g/dL 6.0 - 8.3 06/29 Specimen Type: SERUM No comment entered. Ordering Provider: PAMELA PATHAK Report Released Date/Time: Jun 14, 2023 04:04 PM Reporting Lab: [facility]ITALRL [place] [place] [facility] [address] [facility] [address] Performing Lab: [facility]ITALRL WSTRN [facility]PITALUSETS [facility] [address] [facility] [address] [facility]ITALRTHOMASVILLE [facility]ICAL CENTERN [facility]ITALUSE [facility] LIVER FUNCTION ALBUMIN [MASS/VOLUM E] IN SERUM OR PLASMA 3.7 g/dL 3.5 - 5.0 06/29 Specimen Type: SERUM No comment entered. Ordering Provider: PAMELA PATHAK Report Released Date/Time: Jun 14, 2023 04:04 PM Reporting Lab: [facility]ITALRL [place] [facility] [address] [facility] [address] Performing Lab: [facility]PITALRL WSTRN [facility]PITALUSETS [facility] [address] [facility] [address] [facility]RL [facility]ITALN [facility]ITALUSE [facility] LIVER FUNCTION ALKALINE PHOSPHATASE [ENZYMATIC ACTIVITY/VO LUME] IN SERUM OR PLASMA 110 U/L 40 - 150 06/29 Specimen Type: SERUM No comment entered. Ordering Provider: PAMELA PATHAK Report Released Date/Time: Jun 14, 2023 04:04 PM Reporting Lab: [facility] [place] [facility] [address] [facility] [address] Performing Lab: [facility] [place] [facility] [address] [facility] [address] [facility] [place] [facility] LIVER FUNCTION ASPARTATE AMINOTRANSF ERASE [ENZYMATIC ACTIVITY/VO LUME] IN SERUM OR PLASMA 24 U/L 5 - 34 06/29 Specimen Type: SERUM No comment entered. Ordering Provider: PAMELA PATHAK Report Released Date/Time: Jun 14, 2023 04:04 PM Reporting Lab: [facility] [place] [facility] [address] [facility] [address] Performing Lab: [facility] [place] [facility] [address] [facility] [address] [facility] [place] [facility] LIVER FUNCTION ALANINE AMINOTRANSF ERASE [ENZYMATIC ACTIVITY/VO LUME] IN SERUM OR PLASMA 20 U/L 06/29 Specimen Type: SERUM No comment entered. Ordering Provider: PAMELA PATHAK Report Released Date/Time: Jun 14, 2023 04:04 PM Reporting Lab: [facility] [facility] [address] [facility] [address] Performing Lab: [facility] [facility] [address] [facility] [address] [facility] [place] [facility] LIVER FUNCTION BILIRUBIN.T OTAL [MASS/VOLUM E] IN SERUM OR PLASMA 0.8 mg/dL 0.2 - 1.2 06/29 Specimen Type: SERUM No comment entered. Ordering Provider: PAMELA PATHAK Report Released Date/Time: Jun 14, 2023 04:04 PM Reporting Lab: [facility] [place] [facility] [address] [facility] [address] Performing Lab: [facility] [place] [facility] [address] [facility] [address] [facility] [place] [facility] LIPID PANEL FASTING CHOLESTEROL [MASS/VOLUM E] IN SERUM OR PLASMA 118 mg/dL 06/29 Specimen Type: SERUM No comment entered. Ordering Provider: PAMELA PATHAK Report Released Date/Time: Jun 14, 2023 04:04 PM Reporting Lab: [facility] [place] [facility] [address] [facility] [address] Performing Lab: [facility] [place] [facility] [address] [facility] [address] [facility] [place] [facility] LIPID PANEL FASTING TRIGLYCERID E [MASS/VOLUM E] IN SERUM OR PLASMA 73 mg/dL 0 - 150 06/29 Specimen Type: SERUM No comment entered. Ordering Provider: PAMELA PATHAK Report Released Date/Time: Jun 14, 2023 04:04 PM Reporting Lab: [facility] [place] [facility] [address] [facility] [address] Performing Lab: [facility] [place] [facility] [address] [facility] [address] [place] [facility] [facility] LIPID PANEL FASTING CHOLESTEROL IN LDL [MASS/VOLUM E] IN SERUM OR PLASMA BY CALCULATION 69 mg/dL 0 - 129 06/29 Specimen Type: SERUM No comment entered. Ordering Provider: PAMELA PATHAK Report Released Date/Time: Jun 14, 2023 04:04 PM Reporting Lab: [facility] [place] [facility] [address] [facility] [address] Performing Lab: [facility] [place] [facility] [address] [facility] [address] [facility] [place] [facility] LIPID PANEL FASTING CHOLESTEROL .TOTAL/CHOL ESTEROL IN HDL [MASS RATIO] IN SERUM OR PLASMA 3.5 06/29 Specimen Type: SERUM No comment entered. Ordering Provider: PAMELA PATHAK Report Released Date/Time: Jun 14, 2023 04:04 PM Reporting Lab: [facility] [place] [facility] [address] [facility] [address] Performing Lab: [facility] [place] [facility] [address] [facility] [address] [facility] [place] [facility] LIPID PANEL FASTING CHOLESTEROL IN HDL [MASS/VOLUM E] IN SERUM OR PLASMA 34 mg/dL 40 - 60 06/29 L Specimen Type: SERUM No comment entered. Ordering Provider: PAMLEA PATHAK Report Released Date/Time: Jun 14, 2023 04:04 PM Reporting Lab: [place] [facility] [place] [facility] [address] [facility] [address] Performing Lab: [place] [facility]ITALUSETS [facility] [address] [facility] [address] [facility] [place] BASIC METABOLIC PANEL (fasting) UREA NITROGEN [MASS/VOLUM E] IN SERUM OR PLASMA 10 mg/dL 7 - 25 06/29 Specimen Type: SERUM No comment entered. Ordering Provider: PAMELA PATHAK Report Released Date/Time: Jun 14, 2023 04:04 PM Reporting Lab: [place] [facility]ITALUSE[address] [address] Performing Lab: [place] [facility]ITALUSETS [facility] [address] [facility] [address] [facility]RL W[facility]N [facility]ITALUSE [facility] BASIC METABOLIC PANEL (fasting) GLUCOSE [MASS/VOLUM E] IN SERUM OR PLASMA 89 mg/dL 65 - 100 06/29 Specimen Type: SERUM No comment entered. Ordering Provider: PAMELA PATHAK Report Released Date/Time: Jun 14, 2023 04:04 PM Reporting Lab: [facility]ITALRL [place] [place] [address] [address] Performing Lab: [place] [facility] [facility] [address] [facility] [address] [facility]RL [facility] [place] [facility] BASIC METABOLIC PANEL (fasting) SODIUM [MOLES/VOLU ME] IN SERUM OR PLASMA 138 mmol/L 135 - 145 06/29 Specimen Type: SERUM No comment entered. Ordering Provider: PAMELA PATHAK Report Released Date/Time: Jun 14, 2023 04:04 PM Reporting Lab: [place] [facility]ITALUSETS [facility] [address] [facility] [address] Performing Lab: [place] [facility]ITALUSETS [facility] [address] [facility] [address] [place] [facility] [facility] BASIC METABOLIC PANEL (fasting) POTASSIUM [MOLES/VOLU ME] IN SERUM OR PLASMA 4.0 mmol/L 3.5 - 5.0 06/29 Specimen Type: SERUM No comment entered. Ordering Provider: PAMELA PATHAK Report Released Date/Time: Jun 14, 2023 04:04 PM Reporting Lab: [place] [facility] [place] [facility] [address] [facility] [address] Performing Lab: [place] [facility] [place] [facility] [address] [facility] [address] [place] [facility] [place] [facility] BASIC METABOLIC PANEL (fasting) CHLORIDE [MOLES/VOLU ME] IN SERUM OR PLASMA 105 mmol/L 100 - 110 06/29 Specimen Type: SERUM No comment entered. Ordering Provider: PAMELA PATHAK Report Released Date/Time: Jun 14, 2023 04:04 PM Reporting Lab: [place] [facility] [place] [facility] [address] [facility] [address] Performing Lab: [place] [facility] [place] [facility] [address] [facility] [address] [place] [facility] [place] [facility] BASIC METABOLIC PANEL (fasting) CARBON DIOXIDE, TOTAL [MOLES/VOLU ME] IN SERUM OR PLASMA 26 meq/L 20 - 30 06/29 Specimen Type: SERUM No comment entered. Ordering Provider: PAMELA PATHAK Report Released Date/Time: Jun 14, 2023 04:04 PM Reporting Lab: [facility] [place] [facility] [address] [facility] [address] Performing Lab: [place] [facility] [place] [address] [address] [place] [facility] [facility] BASIC METABOLIC PANEL (fasting) CREATININE [MASS/VOLUM E] IN SERUM OR PLASMA 1.11 mg/dL 0.50 - 1.40 06/29 Specimen Type: SERUM No comment entered. Ordering Provider: PAMELA PATHAK Report Released Date/Time: Jun 14, 2023 04:04 PM Reporting Lab: [facility] [place] [facility] [address] [facility] [address] Performing Lab: [facility] [place] [facility] [address] [facility] [address] [facility] BASIC METABOLIC PANEL (fasting) GLOMERULAR FILTRATION RATE/1.73 SQ M.PREDICTED [VOLUME RATE/AREA] IN SERUM, PLASMA OR BLOOD BY CREATININE- BASED FORMULA (CKD-EPI 2020) 65 mL/min 60 06/29 Specimen Type: SERUM No comment entered. Ordering Provider: PAMELA PATHAK Report Released Date/Time: Jun 14, 2023 04:04 PM Reporting Lab: [facility] [place] [facility] [address] [facility] [address] Performing Lab: [facility] [place] [facility] [address] [facility] [address] [facility] [place] [facility] Vital Signs Combined list of inpatient and outpatient Vital Signs from Department of Defense and Veterans Affairs, ranging from 12 months to all on record, depending upon the facility. Vital Sign Value Date Comments Source SYSTOLIC BLOOD PRESSURE 130 08/04/20 09:15:52 [facility] DIASTOLIC BLOOD PRESSURE 74 024 09:15:52 [facility] PULSE OXIMETRY 95 08/04/2024 09:15:52 [facility] WEIGHT 174.6 08/04/2024 09:15:52 [facility] BMI 27 kg/m2 08/04/2024 09:15:52 [facility] TEMPERATURE 97.3 08/04/2024 09:15:52 [facility] PULSE 63 08/04/2024 09:15:52 [facility] RESPIRATION 18 08/04/2024 09:15:52 [facility] SYSTOLIC BLOOD PRESSURE 136 06/23/20 24 11:41:02 [facility] DIASTOLIC BLOOD PRESSURE 71 11/18/2 024 11:41:02 [facility] PULSE OXIMETRY 93 06/23/2024 11:41:02 [facility] TEMPERATURE 97.8 06/23/2024 11:41:02 [facility] PULSE 63 06/23/2024 11:41:02 [facility] RESPIRATION 16 06/23/2024 11:41:02 [facility] SYSTOLIC BLOOD PRESSURE 160 02/11/20 08:33:01 [facility] DIASTOLIC BLOOD PRESSURE 75 024 08:33:01 [facility] PULSE OXIMETRY 93 02/11/2024 08:33:01 [facility] WEIGHT 174 02/11/2024 08:33:01 [facility] BMI 27 kg/m2 02/11/2024 08:33:01 [facility] [...] 10:03:24 [facility] BMI 27 kg/m2 01/08/2024 10:03:24 [facility] [...] from Department of Veterans Affairs facilities going backup to the last 18 months, not all VA inpatient encounters are included; 2) Encounters from the Department of Defense facilities going backup to 280 months. Location Location Details Encounter Type Encounter Number Reason For Visit Attending Provider ADM Date DC Date Status Disposition Source [facility] [id number] 05[facility]07 [facility] [id number] 05/23 [facility] [id number] 05/24 [facility] OFF/OP EST DECEMBER X REQ PHY/QHP [id number] Diagnos is: ICD-10- CM Z23 Encount er for immuniz ation AUREA MORTENSEN NON P 05/29 [facility] En[facility] [id number] 05/30 [facility] OFF[facility] O/P EST SF 10-19 MIN [id number] Diagnos is: ICD-10- CM L60.3 Nail dystrop hy Yasmin PABOND 06/01 [facility] En[facility] [id number] 06/05 [facility] [id number] Diagnos is: ICD-10- CM 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, 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 ROSEANN,TI IRENE E 06/05 [facility] En[facility] [id number] 06/05 [facility] O/P EST LOW 20-29 MIN [id number] Diagnos is: ICD-10- CM 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 EMILY KNIGHT 06/20 [facility] En[facility] [id number] 06/26 [facility] En[facility] [id number] 06/27 [facility] O/P EST MOD 30-39 MIN [id number] Diagnos is: ICD-10- CM 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 YASIR PATAHK MMED JAWED 07/04 [facility] En[facility] [id number] 07/10 [facility] EXTENDED VISUAL FIELD XM [id number] Diagnos is: ICD-10- CM 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, bilater al, mild stage ALTHEA,KS JASON [facility] CMPTR OPHTH IMG OPTIC NERVE [id number] Diagnos is: ICD-10- CM 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, bilater al, mild stage ALTHEA,KS JASON [facility] OFF[facility] O/P EST MOD 30 MIN [id number] Diagnos is: ICD-10- CM 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, bilater al, mild stage ALTHEA,KS JASON [facility] En[facility] [id number] 10/04 [facility] En[facility] [id number] 10/04 [facility] En[facility] [id number] 10/04 [facility] En[facility] [id number] 10/09 [facility] En[facility] [id number] 10/23 [facility] OFFICE O/P EST LOW 20 MIN [id number] Diagnos is: ICD-10- CM L60.3 Nail dystrop hy JOSELUCILA D 10/28 [facility] En[facility] [id number] 11/25 [facility] O/P EST MOD 30 MIN [id number] Diagnos is: ICD-10- CM L57.0 Actinic keratos is ODALYS ALFARO 12/03 [facility] O/P EST MOD 30 MIN [id number] Diagnos is: ICD-10- CM L57.0 Actinic keratos is ODALYS ALFARO 12/10 [facility] OFF/OP EST MAY X REQ PHY/QHP [id number] Diagnos is: ICD-10- CM Z04.9 Encount er for examina tion and observa tion for unsp reason Jory KING 12/18 [facility] OFF[facility] O/P EST LOW 20 MIN [id number] Diagnos is: ICD-10- CM M54.2 Cervica JESSICA Callejas 12/18 [facility] Outpatient Encounter [id number] 12/31 [facility] [id number] 01/03 [facility] OFFICE O/P EST MOD 30 MIN [id number] Diagnos is: ICD-10- CM Z98.890 Other specifi ed postpro cedural states FURCOLO,TI NA 01/07 [facility] OFFICE O/P EST MOD 30 MIN [id number] Diagnos is: ICD-10- CM R22.1 Localiz ed swellin g, mass and lump, neck ODALYS ALFARO 01/07 [facility] Outpatient Encounter [id number] 01/08 [facility] Outpatient Encounter [id number] 01/27 [facility] Encounter [id number] Diagnos is: ICD-10- CM L72.0 Epiderm al cyst ODALYS ALFARO 02/05 [facility] OFFICE O/P EST MOD 30 MIN [id number] Diagnos is: ICD-10- CM H26.8 Other specifi ed catarac t FURCOLO,TI NA 02/10 [facility] OFF[facility] O/P EST SF 10 MIN [id number] Diagnos is: ICD-10- CM L60.3 Nail dystrop LUCILA Coleman D 03/04 [facility] En[facility] [id number]/10 [facility] [facility] [id number] [facility] Encounter [id number] 03/11 [facility] Encounter [id number] [facility] Encounter [id number] 03/21 [facility] Encounter [id number] 03/25 [facility] Encounter [id number] 04/17 [facility] Encounter [id number] 04/21 [facility] Encounter [id number] 04/22 [facility] FIT SPECTACLES MONOFOCAL [id number] Diagnos is: ICD-10- CM Z46.0 Encount er for fit/adj st of spectac les and contact lenses MANUELEMILY LONNIE OCSBY 04/23 [facility] OFF/OP EST DECEMBER X REQ PHY/QHP [id number] Diagnos is: ICD-10- CM Z23 Encount er for immuniz ation ROSEANN,TI MOTHY E 04/24 [facility] Out[facility] Encounter [id number] 05/02 [facility] Encounter [id number] [facility] IMMUNIZATI [place] ADMIN [id number] FURCOLO,TI NA 05/13 [facility] Out[facility] Encounter [id number] FURCOLO,TI NA 05/13 [facility] Encounter [id number] [facility] Encounter [id number] 06/11 [facility] Encounter [id number] 06/13 [facility] Encounter [id number] 06/18 [facility] Out[facility] Encounter [id number] 06/23 [facility] OFFICE O/P EST MOD 30 MIN [id number] Diagnos is: ICD-10- CM I65.29 Occlusi on and stenosi s of 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 carotid artery FURCOLO,TI NA 06/23 [facility] Encounter [id number] 06/24 [facility] Out[facility] Encounter [id number] 06/30 [facility] Out[facility] Encounter [id number] [facility] Out[facility] Encounter [id number] 07/16 [facility] Encounter [id number] 07/21 [facility] OFFICE O/P EST LOW 20 MIN [id number] Diagnos is: ICD-10- CM 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 EMILY KNIGHT 08/04 [facility] Out[facility] Encounter [id number] 08/07 [facility] TRIM NAIL(S) [id number] Diagnos is: ICD-10- CM L60.3 Nail dystrop TESSIE Renteria 08/12 [facility] Outpatient Encounter [id number] 08/13 [facility] Social History Combined list of available smoking, tobacco, and other social history from Department of Defense and Veterans Affairs facilities. Social History Type Response Date Comment Sour e Tobacco smoking status NHIS VA-TOBACCO FORMER USER 01/08/2024 [facility] History of tobacco use VA-TOBACCO QUIT 5 TO < 15 YRS 01/08/2024 [facility] History of tobacco use VA-TOBACCO FORMER USER 05/03/2022 [facility] History of tobacco use TX-TOBACCO QUIT 15 YRS OR MORE 05/17/2021 [facility] History of tobacco use TX-TOBACCO FORMER USER 05/28/2020 [facility] History of tobacco use VA-TOBACCO FORMER USER 10/04/2018 [facility] History of tobacco use CURRENT SMOKER 01/24/2018 [facility] [place] Plan of Care List of future care activities from Department of Veterans Affairs facilities. Additional future care activities may be listed in the Assessment and Plan section. Date/Time Care Activity Care Activity Detail Facili ty 11/19/2024 AMBULATORY - MEDICINE AMBULATORY [facility] [place] [facility] 12/11/2024 AMBULATORY - MEDICINE AMBULATORY - [place]ICI [place] [facility] 12/11/2024 AMBULATORY - MEDICINE AMBULATORY - [facility] [place] [facility] 04/02/2025 AMBULATORY - MEDICINE AMBULATORY - [place]ICI [place] [facility]
== END ==
LOC: HO.CARD 10:50
PROVIDERS: PCP Internal Medicine; Visit Provider Internal Medicine
DX: I25.5 Ischemic cardiomyopathy (principal)
CPT/HCPCS: 93306

== ENCOUNTER → 2024-10-07 10:53 | Outpatient (BNV) | payer OTHER, SELFPAY | PROVIDERS: PCP Internal Medicine; Visit Provider Internal Medicine Cardiovascular Disease | DX: I35.0 Nonrheumatic aortic (valve) stenosis (principal); I34.0 Nonrheumatic mitral (valve) insufficiency; I25.5 Ischemic cardiomyopathy | CPT/HCPCS: 93306 ==

== ENCOUNTER 2024-10-20 10:27 | Outpatient (AMB) | payer OTHER, SELFPAY ==
--- NOTE | 2024-10-20 10:42 | A.OFFVIS_ITS ---
Vital Signs 10/20/24 10:43 Height 5 ft 9 in Weight 174 lb 9.698 oz BMI 25.8 BP 146/60 H Blood Pressure Location Lt brachial Position Sitting Pulse 64 Pulse Source Pulse Oximeter Intake Visit Reasons: 6 month follow-up Tare Man Required: No Accompanied by: Spouse Allergies bee pollen [bee stings] Allergy (Severe, Verified 06/11/24 09:01) Anaphylaxis Medication List - Last Reconciled 10/20/24 by Christopher Carmona MD aspirin 81 mg PO BEDTIME atorvastatin 40 mg PO BEDTIME isosorbide mononitrate ER 30 mg PO DAILY latanoprost 0.005% 1 drp ophthalmic (eye) BEDTIME levetiracetam 250 mg PO BEDTIME lisinopril 5 mg PO DAILY metoprolol succinate ER 25 mg PO DAILY tamsulosin 0.4 mg PO BEDTIME HPI Comments Details: Mikie returns for follow-up regarding coronary artery disease. To recall, originally seen for a syncopal episode, but also had another hospitalization for right-sided hemiparesis. Then detected to have significant carotid disease. He also underwent cardiac workup including cardiac catheterization that showed significant CAD. Underwent circumflex stenting. Th en also underwent right carotid endarterectomy. He walks with a walker. Generalized weakness, frailty related to age. Otherwise, from cardiac he does not have any angina or concerning symptoms. [facility] Medical History 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 CVA (cerebrovascular accident) COPD (chronic obstructive pulmonary disease) History of smoking at least 1 pack per day for at least 30 years Ischemic cardiomyopathy COVID-19 vaccine series completed Nasal congestion GUEVARA (dyspnea on exertion) Ambulates with cane Low back pain Hard of hearing Arthritis Right bundle branch block History of acute inferior wall myocardial infarction Cerebrovascular accident Abnormal echocardiogram Essential hypertension Near syncope BPH (benign prostatic hyperplasia) Hyperlipidemia Surgical History S/P carotid endarterectomy (07/18/21) H/O heart artery stent S/P cardiac catheterization H/O foot surgery Previous back surgery Family History Other CAD (coronary artery disease) Social History Household Members: Spouse Housing: House Are you a primary healthcare account manager to a significant other at home: No Do you presently have visiting nurse or other home services: No Alcohol intake: former Comment: aware of trip hazard Patient Tobacco Use Status: Former Tobacco user Tobacco use type: Cigarette Cigarette Packs Per Day: 1 Cigarettes Per Day: 20.0 Years Smoked: 30 e-Cigarette/Vaping Use: Never Used Second Hand Smoke Exposure: No Advance Directives Date on File: 07/18/21 service: Yes Current occupational status: retired Review of Systems Const Denies chills, Denies fatigue, Denies fever(s), Denies weight gain and Denies weight loss ENT Denies dizziness Card Denies chest pain, Denies leg edema, Denies lightheadedness, Denies palpitations, Denies dyspnea on exertion, Denies orthopnea and Denies other Resp Denies cough and Denies dyspnea on exertion GI Denies hematochezia and Denies change in stool character Musc Denies abnormal gait, Denies muscle weakness, Denies numbness, Denies radiating pain into limb and Denies tingling Neuro Denies abnormal gait, Denies dizziness, Denies numbness and Denies tingling Endo Denies fatigue and Denies palpitations Physical Exam Vital Signs: Last Vital Signs Pulse 64 10/20/24 10:43 BP 146/60 H 10/20/24 10:43 BMI result Body Mass Index 25.8 Const General: comfortable and no acute distress Orientation/consciousness: patient oriented x3 HEENT Other: Unremarkable Head: Yes normal to inspection Neck Neck: Yes normal visual inspection Chest Chest palpation & inspection: normal inspection of the chest Resp Auscultation: clear to auscultation bilaterally Cardio Palpation: normal PMI Heart sounds: S1 normal heart sound present, S2 normal heart sound present, no gallops, no murmurs and no rubs GI Palpation (GI): Soft to palpation Back/Spine/Pelvis Other: unremarkable Skin General skin exam: no rashes or lesions noted Neuro General: patient oriented x3 Extrem General: Yes normal to inspection Psych Mental Status: mental status grossly normal Assessment & Plan Assessment & Plan (1) Atherosclerotic cardiovascular disease: Code(s): I25.10 - Atherosclerotic heart disease of [place] coronary artery without angina pectoris Category: Medical Plan: Cardiac catheterization data reviewed (2020). He had ostial occlusion of right coronary artery. Moderate mid LAD disease. Severe mid circumflex and OM1 stenosis with [id number] collaterals to RCA. Status post drug-eluting stent to the mid circumflex. Continue aspirin, long-acting nitrates, beta-blockers, statins. Last LDL 54 mg/dL. Triglycerides 56 mg/dL. (2) Ischemic cardiomyopathy: Code(s): I25.5 - Ischemic cardiomyopathy Category: Medical Plan: In the echocardiogram, LVEF is 30-35%. Wall motion abnormalities related to underlying coronary disease. Continue metoprolol/lisinopril. No symptoms or signs of congestive heart failure. (3) Stenosis of right internal carotid artery: Comment: 07/18/2021 right carotid endarterectomy Code(s): I65.21 - Occlusion and stenosis of right carotid artery Category: Medical Plan: Status post right carotid endarterectomy-07/2021. Regularly follows up with vascular surgery. Otherwise, aggressive risk factor modification. Plan Discussed with who came for appointment Coding Level of Care Code Est Pt Level 4 (95041) Complex EM visit Add On G2211 Diagnoses Atherosclerotic cardiovascular disease I25.10 Ischemic cardiomyopathy I25.5 Stenosis of right internal carotid artery I65.21
[2024-10-20 10:43] VITALS: BP 146/60; PULSE 64; BMI 25.8
== END 2024-10-20 11:03 | disposition home or self-care (01) ==
LOC: HO.HCS 10:28
PROVIDERS: PCP Internal Medicine; Visit Provider Internal Medicine
DX: I25.10 Atherosclerotic heart disease of native coronary artery without angina pectoris (principal); I25.5 Ischemic cardiomyopathy; I65.21 Occlusion and stenosis of right carotid artery
CPT/HCPCS: 99214; G2211

== ENCOUNTER → 2024-10-20 10:27 | Outpatient (BNVA) | payer OTHER, SELFPAY | PROVIDERS: PCP Internal Medicine; Visit Provider Internal Medicine | DX: I25.10 Atherosclerotic heart disease of native coronary artery without angina pectoris (principal); I25.5 Ischemic cardiomyopathy; I65.21 Occlusion and stenosis of right carotid artery | CPT/HCPCS: 99212 ==

== ENCOUNTER 2025-04-23 10:31 | Outpatient (REF) | payer OTHER, SELFPAY ==
[2025-04-23 12:41] LABS: Anion Gap 7 (12-20); Blood Urea Nitrogen 12 mg/dL (9-16); Calcium 8.6 mg/dL (8.4-10.2); Carbon Dioxide 31 mmol/L (22-29); Chloride 107 mmol/L (96-108); Estimated Glomerular Filt Rate > 60; Potassium 4.1 mmol/L (3.3-5.1); Sodium 141 mmol/L (135-145)
== END 2025-04-23 10:32 | disposition home or self-care (01) ==
LOC: HO.LAB 10:31
PROVIDERS: Internal Medicine; PCP Internal Medicine; Visit Provider Internal Medicine Cardiovascular Disease
DX: I25.10 Atherosclerotic heart disease of native coronary artery without angina pectoris (principal); I65.21 Occlusion and stenosis of right carotid artery; I25.5 Ischemic cardiomyopathy; I50.9 Heart failure, unspecified; Z79.82 Long term (current) use of aspirin; Z79.899 Other long term (current) drug therapy; Z95.811 Presence of heart assist device; Z87.891 Personal history of nicotine dependence
CPT/HCPCS: 36415; 80048; 83880; 99212

== ENCOUNTER 2025-04-23 10:31 | Outpatient (AMB) | payer OTHER, SELFPAY ==
--- NOTE | 2025-04-23 10:52 | A.OFFVIS_ITS ---
Vital Signs 04/23/25 10:53 Height 5 ft 9 in Weight 171 lb 15.369 oz BMI 25.4 BP 138/64 Blood Pressure Location Lt brachial Position Sitting Pulse 52 Pulse Source Pulse Oximeter Intake Visit Reasons: 6 mth f/up Intake Note: 6month f/u Accompanied by: Spouse Allergies bee pollen (bee stings) Allergy (Severe, Verified 04/23/25 10:58) Anaphylaxis Medication List - Last Reconciled 04/23/25 by Christopher Carmona MD aspirin 81 mg PO BEDTIME atorvastatin 40 mg PO BEDTIME isosorbide mononitrate ER 30 mg PO DAILY latanoprost 0.005% 1 drp ophthalmic (eye) BEDTIME levetiracetam 250 mg PO BEDTIME lisinopril 5 mg PO DAILY metoprolol succinate ER 25 mg PO DAILY tamsulosin 0.4 mg PO BEDTIME HPI Comments Details: Mikie returns for follow-up regarding coronary artery disease. To recall, originally seen for a syncopal episode, but then had another hospitalization for right-sided hemiparesis. Then detected to have significant carotid disease. He concurrently underwent cardiac workup including cardiac catheterization that showed significant CAD. Underwent circumflex stenting. Then also underwent right carotid endarterectomy. Overall, main issues frailty and some weakness. He noticed some leg swelling intermittently. Breathing is mostly okay. No angina. [facility] Medical History 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 CVA (cerebrovascular accident) COPD (chronic obstructive pulmonary disease) History of smoking at least 1 pack per day for at least 30 years Ischemic cardiomyopathy COVID-19 vaccine series completed Nasal congestion GUEVARA (dyspnea on exertion) Ambulates with cane Low back pain Hard of hearing Arthritis Right bundle branch block History of acute inferior wall myocardial infarction Cerebrovascular accident Abnormal echocardiogram Essential hypertension Near syncope BPH (benign prostatic hyperplasia) Hyperlipidemia Surgical History S/P carotid endarterectomy (07/18/21) H/O heart artery stent S/P cardiac catheterization H/O foot surgery Previous back surgery Family History Other CAD (coronary artery disease) Social History Household Members: Spouse Housing: House Are you a primary home care coordinator to a significant other at home: No Do you presently have visiting nurse or other home services: No Alcohol intake: former Comment: aware of trip hazard Patient Tobacco Use Status: Former Tobacco user Tobacco use type: Cigarette Cigarette Packs Per Day: 1 Cigarettes Per Day: 20.0 Years Smoked: 30 e-Cigarette/Vaping Use: Never Used Second Hand Smoke Exposure: No Advance Directives Date on File: 07/18/21 service: Yes Current occupational status: retired Review of Systems Const Denies daytime sleepiness, Denies difficulty sleeping, Denies snoring, Denies stops breathing during sleep and Denies weakness Card Denies chest pain, Denies rapid heart rate, Denies irregular heart rhythm, Denies claudication, Denies leg edema, Denies lightheadedness, Denies palpitations, Denies dyspnea, Denies dyspnea on exertion, Denies orthopnea, Denies paroxysmal nocturnal dyspnea and Denies slow heart rate Resp Denies cough, Denies dyspnea, Denies dyspnea on exertion and Denies snoring GI Reports no additional complaints, Denies hematochezia, Denies change in stool character and Denies dyspepsia Musc Denies abnormal gait, Denies muscle weakness and Denies numbness Neuro Denies abnormal gait, Denies numbness and Denies weakness Endo Denies palpitations Physical Exam Vital Signs: Last Vital Signs Pulse 52 04/23/25 10:53 BP 138/64 04/23/25 10:53 BMI result Body Mass Index 25.4 Const General: comfortable and no acute distress Orientation/consciousness: patient oriented x3 HEENT Other: Unremarkable Head: Yes normal to inspection Neck Neck: Yes normal visual inspection Chest Chest palpation & inspection: normal inspection of the chest Resp Auscultation: rhonchi and diminished lung sounds Cardio Palpation: normal PMI Heart sounds: S1 normal heart sound present, S2 normal heart sound present, no gallops, no murmurs and no rubs GI Palpation (GI): Soft to palpation Back/Spine/Pelvis Other: unremarkable Skin General skin exam: no rashes or lesions noted Neuro General: patient oriented x3 Extrem Other: 1+ swelling, bilateral General: Yes normal to inspection Psych Mental Status: mental status grossly normal Assessment & Plan Assessment & Plan (1) Atherosclerotic cardiovascular disease: Code(s): I25.10 - Atherosclerotic heart disease of [place] coronary artery without angina pectoris Category: Medical Plan: Cardiac catheterization data reviewed (2020). He had ostial occlusion of right coronary artery. Moderate mid LAD disease. Severe mid circumflex and OM1 stenosis with [id number] collaterals to RCA. Status post drug-eluting stent to the mid circumflex. Continue aspirin, long-acting nitrates, beta-blockers, statins. Last LDL 54 mg/dL. Triglycerides 56 mg/dL. (2) Ischemic cardiomyopathy: Code(s): I25.5 - Ischemic cardiomyopathy Category: Medical Plan: In the echocardiogram, LVEF is 30-35%. Wall motion abnormalities related to underlying coronary disease. Continue metoprolol/lisinopril. He has some leg swelling and probably related to heart failure. Check labs including BMP and BNP. After that, consider starting meds including diuretic and Jardiance. (3) Stenosis of right internal carotid artery: Comment: 07/18/2021 right carotid endarterectomy Code(s): I65.21 - Occlusion and stenosis of right carotid artery Category: Medical Plan: Status post right carotid endarterectomy-07/2021. Regularly follows up with vascular surgery. Otherwise, aggressive risk factor modification. Plan Discussed with significant other. Orders: Orders Basic Metabolic Panel Today I25.5 - Ischemic cardiomyopathy, I50.9 - Heart failure, unspecified NT Pro B Type Natriuretic Pept Today I50.9 - Heart failure, unspecified Coding Level of Care Code Est Pt Level 4 (30418) Complex EM visit Add On G2211 Diagnoses Atherosclerotic cardiovascular disease I25.10 Ischemic cardiomyopathy I25.5 Stenosis of right internal carotid artery I65.21
[2025-04-23 10:53] VITALS: BP 138/64; PULSE 52; BMI 25.4
--- OUTSIDE RECORDS SUMMARY | 2025-04-23 12:34 | XMS_ITS | Clinical Summary ---
Author Organization [facility] Address [address] [place], [place] [id number] Phone Care Team Providers Care Hadoop Application Developer Name Role Phone Americo Johnston MD Primary Care Provider [phone] Allergies Active Allergy Reactions Criticality Noted Date Comments Bee Pollen 08/19/2019 Medications ciprofloxacin HCl (CILOXAN) 0.3 % ophthalmic solution Place 1 drop into each eye Every 2 (two) hours. 5 mL 7 Active Additional Information Patient not taking.Reported on 08/19/2019 hydroCHLOROthia zide (HYDRODIURIL) 25 MG tablet 1 tablet Orally Once a day Active pravastatin (PRAVACHOL) 20 MG tablet 25 mg. 1 tablet Orally Once a day Active methylPREDNISol one (MEDROL DOSEPACK) 4 mg tablet follow package directions 21 tablet 0 Active Active Problems No known active problems Social History Tobacco Use Types Packs/Day Years Used Date Smoking Tobacco: Every Day Cigarettes Smokeless Tobacco: Never Alcohol Use Standard Drinks/Week Comments No 0 (1 standard drink = 0.6 oz pur e alcohol) Education Answer Date Recorded Are you interested in more education? Not on xochilt e 12/01/2022 Are you concerned about learning? Not on file 12/01/2022 No 12/01/2022 No 12/01/2022 Digital Access Answer Date Recorded No 12/30/2022 No 12/30/2022 Reliable internet access at home? Not on file 12/30/2022 Device with a working camera? Not on file Sex and Gender Information Value Date Recorded Sex Assigned at Male 08/20/2019 11:14 AM EST Legal Sex Male 10:13 PM EDT Gender Identity Male 08/20/2019 11:14 AM EST Sexual Orientation Not on file Last Filed Vital Signs Vital Sign Reading Time Taken Comments Blood Pressure 137/81 08/20/2019 12:35 PM EST Pulse 78 08/20/2019 12:35 PM EST Temperature 37.1 C (98.7 F) 08/20/2019 12:35 PM EST Respiratory Rate 98 08/20/2019 12:35 PM EST Oxygen Saturation 98% 08/20/2019 12:35 PM EST Inhaled Oxygen Concentration - - Weight 77.1 kg (170 lb) 08/20/2019 11:10 AM EST Height 175.3 cm (5' 9 ) 08/20/2019 11:10 AM EST Body Mass Index 25.1 08/20/2019 11:10 AM EST Plan of Treatment Health Maintenance Due Date Last Done Comments Adult Td,Tdap Booster 1938 POTASSIUM LEVEL 1938 DEPRESSION SCREENING 1950 ZOSTER VACCINES (1 of 2) 01/08/1988 RSV VACCINE (1 - 1-dose 75+ series) 2013 INFLUENZA VACCINE (#1) 2025 , 04/13/2020, 05/05/2019, Additional history exists COVID-19 VACCINE (2024- season) 2025 06/18/2021, 09/16/2020, 08/19/2020 PNEUMOCOCCAL VACCINES (50+ years) Completed 02/01/2021, 07/04/2019, 06/23/2016 HEPATITIS A VACCINES Aged Out No long er eligible based on patient's age to complete this topic HIB VACCINES Aged Out No longer eligi ble based on patient's age to complete this topic MENINGOCOCCAL VACCINES (ACWY) Aged Out No longer eligible based on patient's age to complete this topic MENINGOCOCCAL VACCINES (B) Aged Out N o longer eligible based on patient's age to complete this topic Medical Devices Not on file Insurance MEDICARE PART A & B [employer] [place] [address] [address] MEDICARE PART A & B BLUE CROSS MEDEX SUPPLEMENT Member Subscriber Plan / Payer ( fective 2003-Present) Name:Nevin Williamson Relation to Subscriber:Self Name:NEVIN WILLIAMSON Payer ID:[id number] (NAIC) Type:Indemnity Address: [address] MEDICARE PART A & B [facility] MEDEX SUPPLE[facility] Member Subscriber Plan / Payer ( fective 2003-Present) Name:Nevin Williamson Relation to Subscriber:Self Name:NEVIN WILLIAMSON Payer ID:[id number] (NAIC) Type:Indemnity Address: [address] Member Subscriber Plan / Payer ( fective 2019-Present) Name:NapoleonNevin leal Relation to Subscriber:Self Name:Nevin Williamson Payer ID:[id number] (NAIC) Group ID:Not on file Type:Indemnity Address: [facility] [address] [place] [id number] [place] [id number] [address] [address] [facility] MEDICARE PART A & B [employer] [place] MEDEX [address] MEDICARE PART A & B BLUE [employer]OSS MEDEX SUPPLEMENT [facility] MEDICARE PART A & B [employer] MEDEX SUPPLEMENT Member Subscriber Plan / Payer ( fective 2003-Present) Name:Nevin Williamson Relation to Subscriber:Self Name:NEVIN WILLIAMSON Payer ID:[id number] (NAIC) Type:Indemnity Address: [address] MEDICARE PART A & B [employer]OSS MEDEX SUPPLEMENT Member Subscriber Plan / Payer (Ef fective 2003-Present) Name:Nevin Williamson Relation to Subscriber:Self Name:LITCARINAKAMLESHNEVIN Payer ID:[id number] (NAIC) Type:Indemnity Address: [facility] [id number] MEDICARE PART A & B [employer] MEDEX SUPPLEMENT [facility] Care Teams Hadoop Application Developer Relationship Specialty Start Date End Date Americo Johnston MD [address] [place] [id number] PCP - General Internal Medicine 07/21/17 Additional Source Comments The information contained in this document represents components of the legal health record. It is not the complete legal health record.[facility]
--- OUTSIDE RECORDS SUMMARY | 2025-04-23 12:34 | XMS_ITS | Clinical Summary ---
Author Organization [facility] Address [address] [place] [address] [address] [place] [address] Phone Care Team Providers Care Track Layer Head Name Role Phone Unavailable Primary Care Provider Unavailabl e Social History Tobacco Use Types Packs/Day Years Used Date Smoking Tobacco: Never Assessed Sex and Gender Information Value Date Recorded Sex Assigned at Not on file Legal Sex Male 8:14 AM EDT Gender Identity Not on file Sexual Orientation Not on file Plan of Treatment Health Maintenance Due Date Last Done Comments Pneumococcal Vaccine: 50+ Ye ars (2 of 2 - PPSV23, PCV20, or PCV21) 08/29/2019 07/04/2019 Influenza Vaccine (#1) 2025 04/13/2020 Hepatitis B Vaccine Aged Out No longe r eligible based on patient's age to complete this topic Insurance [employer] [address]ACCN) [place] [address] [place] [address] [employer] 1,[employer] ([employer])
== END 2025-04-23 11:20 | disposition home or self-care (01) ==
PROVIDERS: PCP Internal Medicine; Visit Provider Internal Medicine Cardiovascular Disease
DX: I25.10 Atherosclerotic heart disease of native coronary artery without angina pectoris (principal); I25.5 Ischemic cardiomyopathy; I65.21 Occlusion and stenosis of right carotid artery
CPT/HCPCS: 99214; G2211